=== PATIENT | male | born 1955 | race Caucasian/White ===

== ENCOUNTER 2017-08-25 14:30 | Outpatient (RCR) | payer MEDICARE, SELFPAY ==
[2017-08-16 01:24] VITALS: BP 157/91; PULSE 76; RESP 18; TEMP 36.6; BMI 43.0
[2017-08-25 14:09] VITALS: BP 140/76; PULSE 73; RESP 16; TEMP 37.2; BMI 43.0
--- NOTE | 2017-08-25 15:19 | PCM.WC.PN ---
(1) Pressure ulcer of other site, stage 3 Status: Acute Current Visit: Yes Code(s): L89.893 - Pressure ulcer of other site, stage 3 (2) Left foot pain Status: Acute Current Visit: Yes Code(s): M79.672 - Pain in left foot Type of Wound Date of Service: 08/25/17 Chief Complaint: left foot ulcer History of Wound: Open wound L foot present for 3 years. 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 Has been applying Iodosorb and dry gauze, offloading with AFO with cutout and metatarsal padding. Also using additional padding on foot. Is wearing band-aid on foot today against advice. Cannot come here for the next 2 weeks, wants to return in 3 weeks. Progress of Wound: Improved. - Physical Exam Vital Signs Temp Pulse Resp BP 98.9 F 73 16 140/76 H 08/25/17 14:09 08/25/17 14:09 08/25/17 14:09 08/25/17 14:09 General: Alert, Oriented x3, Cooperative, No apparent distress Skin: Ulcer/ Wound - Plantar L foot 2nd met head with no erythema, no pus, no malodor, no increased warmth, no TTP. No clinical signs of acute bacterial infection noted. Please see nurse's wound assessment. Wound Measurements and Assessment WC - Nurse 1 - General Ulcer Measurement Start: 08/18/17 14:51 Freq: Status: Active Protocol: Activity Type Activity Date Activity User E-Sign Co-Sign Detail Recorded Client Recorded Date Recorded By Document 08/25/17 14:09 [facility] [id number] 08/25/17 14:19 [facility] 08/25/17 14:09 Wound Center Nurse 1 [Ulcer Assessment Protocol: WC.WD.LOC] #1 Left Plantar -Combined with other wound No -Current Size (cm) - Length 0.1 -Current Size (cm) - Width 0.1 -Current Size (cm) - Depth 0.4 -Total Square Cm 0.01 -Date of Last Picture (Recall this 08/25/17 field) -Photo Taken Yes -Epithelialization None Present -Tunneling No -Undermining/Tunneling No -Exudate Amt Small (1-33%) -Exudate Type Serous -Wound Margin Distinct, Outline Attached -Granulation Amt Medium (34-66%) -Granulation Quality [place] -Slough/Fibrin No -Necrosis Amt None Present (0 %) -Structure Exposed N/A -Texture (Talisha-wound Skin Appearance) Callus -Moisture (Talisha-wound Skin Appearance Dry/Scaly ) -Color (Talisha-wound Skin Appearance) Assessed -Temperature (Talisha-wound Skin No Abnormality Appearance) (Pt Warm) -Tenderness on Palpation (Talisha-wound Yes Skin Appearance) -Ulcer Cleansing Rinsed/ Irrigated with Saline -Foul Odor after Cleansing No -Anesthetic Used 5% Lidocaine Gel - Nurse 2 - General Ulcer CM Notes Start: 08/18/17 14:51 Freq: Status: Active Protocol: Activity Type Activity Date Activity User E-Sign Co-Sign Detail Recorded Client Recorded Date Recorded By Document 08/25/17 15:06 MW [id number] 08/25/17 15:08 MW 08/25/17 15:06 Wound Center Nurse 2 [Procedure/Treatment] -Time 15:06 -Correct Patient Yes -Correct Side, Site, Position Yes -Correct Procedure Yes -Procedure Performed Yes -Type of Procedure Debridement -Clinical Debridement Subcutaneous -Post Debridement Size (cm) - Length 0.4 -Post Debridement Size (cm) - Width 0.4 -Post Debridement Size (cm) - Depth 0.2 -Total Square Cm 0.16 -Wound/Ulcer Outcome Not Healed -Ulcer Cleansing Rinsed/ Irrigated with Saline -Foul Odor after Cleansing No -Bioengineered Tissue No -Cetacaine [place] No -Bleeding Controlled with Pressure -Treatment Response Procedure Tolerated Well [See Physician Procedure note for Specifics] Pain Scale: 0-10 Numeric [Pain] -Is Patient Pain Free? Yes Debridement Note Post-Debridement Measurements/Treatment - Nurse 2 - General Ulcer CM Notes Start: 08/18/17 14:51 Freq: Status: Active Protocol: Activity Type Activity Date Activity User E-Sign Co-Sign Detail Recorded Client Recorded Date Recorded By Document 08/25/17 15:06 MW [id number] 08/25/17 15:08 MW 08/25/17 15:06 Wound Center Nurse 2 #1 Left Plantar -Time 15:06 -Correct Patient Yes -Correct Side, Site, Position Yes -Correct Procedure Yes -Procedure Performed Yes -Type of Procedure Debridement -Clinical Debridement Subcutaneous -Post Debridement Size (cm) - Length 0.4 -Post Debridement Size (cm) - Width 0.4 -Post Debridement Size (cm) - Depth 0.2 -Total Square Cm 0.16 -Wound/Ulcer Outcome Not Healed -Ulcer Cleansing Rinsed/ Irrigated with Saline -Foul Odor after Cleansing No -Bioengineered Tissue No -Cetacaine [place] No -Bleeding Controlled with Pressure -Treatment Response Procedure Tolerated Well Pain Scale: 0-10 Numeric Is Patient Pain Free? Yes Wound debrided: L foot Laterality: Left Wound Grade/Stage: Stage 3 pressure injury Type of Debridement: Excisional debridement Anesthesia Used: 4% Lidocaine Solution Depth: Down to and including healthy tissue, in the subcutaneous layer Percentage of wound debrided: 100 Instrument Used: #15 blade Tissue Removed: fibrous slough, surrounding hyperkeratotic tissue Severity: Fat Layer Exposed Amount of bleeding with debridement: Mild Bleeding Controlled with: Pressure, Compression and gauze Patient tolerated procedure well Assessment/Plan Active Problems Pressure ulcer of other site, stage 3 (Acute) Left foot pain (Acute) Assessment: See diagnoses Plan: SQ/excisional debridement L foot ulcer as above. Cont promogran and dry gauze 3x/week. Do not use band-aids. Make sure promogran is packed in to ulcer. Discussed importance of offloading. Padding applied, adjusted AFO/offloading insert. Labs reviewed. ESR/CRP slightly elevated. Prealbumin normal. WBC normal. 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 Screening MAUREEN next week in clinic. Discussed importance of adequate nutrition, especially increased protein intake, to promote healing. Keep L foot dry in the shower, wash separately with dsg changes. Do not walk or stand without offloading L 2nd met head. Monitor for redness, pus, malodor, warmth, inc pain, swelling as well as for N/V/F/C and go to the ED with these. RTC 3 weeks (pt request), call with questions.
--- NOTE | 2017-08-25 15:22 | PN.PCM_ITS ---
(1) Pressure ulcer of other site, stage 3 Status: Acute Current Visit: Yes Code(s): L89.893 - Pressure ulcer of other site, stage 3 (2) Left foot pain Status: Acute Current Visit: Yes Code(s): M79.672 - Pain in left foot Type of Wound Date of Service: 08/25/17 Chief Complaint: left foot ulcer History of Wound: Open wound L foot present for 3 years. 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 Has been applying Iodosorb and dry gauze, offloading with AFO with cutout and metatarsal padding. Also using additional padding on foot. Is wearing band-aid on foot today against advice. Cannot come here for the next 2 weeks, wants to return in 3 weeks. Progress of Wound: Improved. - Physical Exam Vital Signs Temp Pulse Resp BP 98.9 F 73 16 140/76 H 08/25/17 14:09 08/25/17 14:09 08/25/17 14:09 08/25/17 14:09 General: Alert, Oriented x3, Cooperative, No apparent distress Skin: Ulcer/ Wound - Plantar L foot 2nd met head with no erythema, no pus, no malodor, no increased warmth, no TTP. No clinical signs of acute bacterial infection noted. Please see nurse's wound assessment. Wound Measurements and Assessment WC - Nurse 1 - General Ulcer Measurement Start: 08/18/17 14:51 Freq: Status: Active Protocol: Activity Type Activity Date Activity User E-Sign Co-Sign Detail Recorded Client Recorded Date Recorded By Document 08/25/17 14:09 [facility] [id number] 08/25/17 14:19 [facility] 08/25/17 14:09 Wound Center Nurse 1 [Ulcer Assessment Protocol: WC.WD.LOC] #1 Left Plantar -Combined with other wound No -Current Size (cm) - Length 0.1 -Current Size (cm) - Width 0.1 -Current Size (cm) - Depth 0.4 -Total Square Cm 0.01 -Date of Last Picture (Recall this 08/25/17 field) -Photo Taken Yes -Epithelialization None Present -Tunneling No -Undermining/Tunneling No -Exudate Amt Small (1-33%) -Exudate Type Serous -Wound Margin Distinct, Outline Attached -Granulation Amt Medium (34-66%) -Granulation Quality [place] -Slough/Fibrin No -Necrosis Amt None Present (0 %) -Structure Exposed N/A -Texture (Talisha-wound Skin Appearance) Callus -Moisture (Talisha-wound Skin Appearance Dry/Scaly ) -Color (Talisha-wound Skin Appearance) Assessed -Temperature (Talisha-wound Skin No Abnormality Appearance) (Pt Warm) -Tenderness on Palpation (Talisha-wound Yes Skin Appearance) -Ulcer Cleansing Rinsed/ Irrigated with Saline -Foul Odor after Cleansing No -Anesthetic Used 5% Lidocaine Gel - Nurse 2 - General Ulcer CM Notes Start: 08/18/17 14:51 Freq: Status: Active Protocol: Activity Type Activity Date Activity User E-Sign Co-Sign Detail Recorded Client Recorded Date Recorded By Document 08/25/17 15:06 MW [id number] 08/25/17 15:08 MW 08/25/17 15:06 Wound Center Nurse 2 [Procedure/Treatment] -Time 15:06 -Correct Patient Yes -Correct Side, Site, Position Yes -Correct Procedure Yes -Procedure Performed Yes -Type of Procedure Debridement -Clinical Debridement Subcutaneous -Post Debridement Size (cm) - Length 0.4 -Post Debridement Size (cm) - Width 0.4 -Post Debridement Size (cm) - Depth 0.2 -Total Square Cm 0.16 -Wound/Ulcer Outcome Not Healed -Ulcer Cleansing Rinsed/ Irrigated with Saline -Foul Odor after Cleansing No -Bioengineered Tissue No -Cetacaine [place] No -Bleeding Controlled with Pressure -Treatment Response Procedure Tolerated Well [See Physician Procedure note for Specifics] Pain Scale: 0-10 Numeric [Pain] -Is Patient Pain Free? Yes Debridement Note Post-Debridement Measurements/Treatment - Nurse 2 - General Ulcer CM Notes Start: 08/18/17 14:51 Freq: Status: Active Protocol: Activity Type Activity Date Activity User E-Sign Co-Sign Detail Recorded Client Recorded Date Recorded By Document 08/25/17 15:06 MW [id number] 08/25/17 15:08 MW 08/25/17 15:06 Wound Center Nurse 2 #1 Left Plantar -Time 15:06 -Correct Patient Yes -Correct Side, Site, Position Yes -Correct Procedure Yes -Procedure Performed Yes -Type of Procedure Debridement -Clinical Debridement Subcutaneous -Post Debridement Size (cm) - Length 0.4 -Post Debridement Size (cm) - Width 0.4 -Post Debridement Size (cm) - Depth 0.2 -Total Square Cm 0.16 -Wound/Ulcer Outcome Not Healed -Ulcer Cleansing Rinsed/ Irrigated with Saline -Foul Odor after Cleansing No -Bioengineered Tissue No -Cetacaine [place] No -Bleeding Controlled with Pressure -Treatment Response Procedure Tolerated Well Pain Scale: 0-10 Numeric Is Patient Pain Free? Yes Wound debrided: L foot Laterality: Left Wound Grade/Stage: Stage 3 pressure injury Type of Debridement: Excisional debridement Anesthesia Used: 4% Lidocaine Solution Depth: Down to and including healthy tissue, in the subcutaneous layer Percentage of wound debrided: 100 Instrument Used: #15 blade Tissue Removed: fibrous slough, surrounding hyperkeratotic tissue Severity: Fat Layer Exposed Amount of bleeding with debridement: Mild Bleeding Controlled with: Pressure, Compression and gauze Patient tolerated procedure well Assessment/Plan Active Problems Pressure ulcer of other site, stage 3 (Acute) Left foot pain (Acute) Assessment: See diagnoses Plan: SQ/excisional debridement L foot ulcer as above. Cont promogran and dry gauze 3x/week. Do not use band-aids. Make sure promogran is packed in to ulcer. Discussed importance of offloading. Padding applied, adjusted AFO/ offloading insert. Labs reviewed. ESR/CRP slightly elevated. Prealbumin normal. WBC normal. 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 Screening MAUREEN next week in clinic. Discussed importance of adequate nutrition, especially increased protein intake, to promote healing. Keep L foot dry in the shower, wash separately with dsg changes. Do not walk or stand without offloading L 2nd met head. Monitor for redness, pus, malodor, warmth, inc pain, swelling as well as for N/V/F/C and go to the ED with these. RTC 3 weeks (pt request), call with questions.
== END 2017-09-13 23:59 ==
LOC: WC 14:30
PROVIDERS: PCP Internal Medicine; Visit Provider Podiatrist Foot & Ankle Surgery
DX: L89.893 Pressure ulcer of other site, stage 3 (principal); M79.672 Pain in left foot
CPT/HCPCS: 11042

== ENCOUNTER 2017-10-13 14:45 | Outpatient (RCR) | payer MEDICARE, SELFPAY ==
[2017-09-14 01:30] VITALS: BP 140/76; PULSE 73; RESP 16; TEMP 37.2; BMI 43.0
[2017-09-15 14:26] VITALS: BP 122/79; PULSE 75; RESP 18; TEMP 36.8; BMI 43.0
--- NOTE | 2017-09-15 15:49 | PCM.WC.PN ---
(1) Pressure ulcer of other site, stage 3 Status: Acute Current Visit: Yes Code(s): L89.893 - Pressure ulcer of other site, stage 3 (2) Left foot pain Status: Acute Current Visit: Yes Code(s): M79.672 - Pain in left foot Type of Wound Date of Service: 09/15/17 Chief Complaint: left foot ulcer History of Wound: Open wound L foot present for 3 years. 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 Has been applying ramiro and dry gauze 3x/week, offloading with AFO with cutout and metatarsal padding. Also using additional padding on foot. Progress of Wound: Improved. - Physical Exam Vital Signs Temp Pulse Resp BP 98.3 F 75 18 122/79 H 09/15/17 14:26 09/15/17 14:26 09/15/17 14:26 09/15/17 14:26 General: Alert, Oriented x3, Cooperative, No apparent distress Skin: Ulcer/ Wound - Plantar L foot 2nd met head with no erythema, no malodor, no pus, no calor, no TTP. No clinical signs of acute bacterial infection noted. See nurse's wound assessment. Wound Measurements and Assessment WC - Nurse 1 - General Ulcer Measurement Start: 09/15/17 14:25 Freq: Status: Active Protocol: Activity Type Activity Date Activity User E-Sign Co-Sign Detail Recorded Client Recorded Date Recorded By Document 09/15/17 14:26 DL [id number] 09/15/17 14:31 DL 09/15/17 14:26 Wound Center Nurse 1 [Ulcer Assessment Protocol: WC.WD.LOC] #1 Left Plantar -Current Size (cm) - Length 0.2 -Current Size (cm) - Width 0.2 -Current Size (cm) - Depth 0.2 -Total Square Cm 0.04 -Photo Taken No -Exudate Amt None Present (0 %) -Wound Margin Thickened -Granulation Amt Small (1-33%) -Granulation Quality [place] -Necrosis Amt Small (1-33%) -Necrotic Tissue Type Adherent Slough -Structure Exposed N/A -Texture (Talisha-wound Skin Appearance) Callus -Moisture (Talisha-wound Skin Appearance No Abnormality ) -Color (Talisha-wound Skin Appearance) No Abnormality -Temperature (Talisha-wound Skin No Abnormality Appearance) (Pt Warm) -Ulcer Cleansing Rinsed/ Irrigated with Saline -Foul Odor after Cleansing No -Anesthetic Used 4% Lidocaine Solution - Nurse 2 - General Ulcer CM Notes Start: 09/15/17 14:25 Freq: Status: Active Protocol: Activity Type Activity Date Activity User E-Sign Co-Sign Detail Recorded Client Recorded Date Recorded By Document 09/15/17 15:08 MW [id number] 09/15/17 15:14 MW 09/15/17 15:08 Wound Center Nurse 2 [Procedure/Treatment] -Time 15:09 -Correct Patient Yes -Correct Side, Site, Position Yes -Correct Procedure Yes -Procedure Performed Yes -Type of Procedure Debridement -Clinical Debridement Subcutaneous -Post Debridement Size (cm) - Length 0.4 -Post Debridement Size (cm) - Width 0.4 -Post Debridement Size (cm) - Depth 0.1 -Total Square Cm 0.16 -Wound/Ulcer Outcome Not Healed -Ulcer Cleansing Rinsed/ Irrigated with Saline -Foul Odor after Cleansing No -Bioengineered Tissue No -Cetacaine [place] No -Bleeding Controlled with Pressure -Treatment Response Procedure Tolerated Well [See Physician Procedure note for Specifics] Pain Scale: 0-10 Numeric [Pain] -Is Patient Pain Free? Yes Debridement Note Post-Debridement Measurements/Treatment - Nurse 2 - General Ulcer CM Notes Start: 09/15/17 14:25 Freq: Status: Active Protocol: Activity Type Activity Date Activity User E-Sign Co-Sign Detail Recorded Client Recorded Date Recorded By Document 09/15/17 15:08 MW [id number] 09/15/17 15:14 MW 09/15/17 15:08 Wound Center Nurse 2 #1 Left Plantar -Time 15:09 -Correct Patient Yes -Correct Side, Site, Position Yes -Correct Procedure Yes -Procedure Performed Yes -Type of Procedure Debridement -Clinical Debridement Subcutaneous -Post Debridement Size (cm) - Length 0.4 -Post Debridement Size (cm) - Width 0.4 -Post Debridement Size (cm) - Depth 0.1 -Total Square Cm 0.16 -Wound/Ulcer Outcome Not Healed -Ulcer Cleansing Rinsed/ Irrigated with Saline -Foul Odor after Cleansing No -Bioengineered Tissue No -Cetacaine [place] No -Bleeding Controlled with Pressure -Treatment Response Procedure Tolerated Well Pain Scale: 0-10 Numeric Is Patient Pain Free? Yes Wound debrided: L foot Laterality: Left Wound Grade/Stage: Stage 3 pressure injury Type of Debridement: Excisional debridement Anesthesia Used: 4% Lidocaine Solution Depth: Down to and including healthy tissue, in the subcutaneous layer Percentage of wound debrided: 100 Instrument Used: #10 blade Tissue Removed: fibrous slough, surrounding hyperkeratotic tissue Severity: Fat Layer Exposed Amount of bleeding with debridement: Mild Bleeding Controlled with: Pressure, Compression and gauze Patient tolerated procedure well Assessment/Plan Active Problems Pressure ulcer of other site, stage 3 (Acute) Left foot pain (Acute) Assessment: See diagnoses Plan: SQ/excisional debridement L foot ulcer as above. Cont promogran and dry gauze 3x/week. Do not use band-aids. Make sure promogran is packed in to ulcer. Add collagen hydrogel. Discussed importance of offloading again today. Padding applied, adjusted AFO/offloading insert. Labs reviewed. ESR/CRP slightly elevated. Prealbumin normal. WBC normal. Needs Screening MAUREEN next week in clinic. Discussed importance of adequate nutrition, especially increased protein intake, to promote healing. Keep L foot dry in the shower, wash separately with dsg changes. Do not walk or stand without offloading L 2nd met head - did not get done today. Monitor for redness, pus, malodor, warmth, inc pain, swelling as well as for N/V/F/C and go to the ED with these. RTC 1 week, call with questions.
--- NOTE | 2017-09-15 15:52 | PN.PCM_ITS ---
(1) Pressure ulcer of other site, stage 3 Status: Acute Current Visit: Yes Code(s): L89.893 - Pressure ulcer of other site, stage 3 (2) Left foot pain Status: Acute Current Visit: Yes Code(s): M79.672 - Pain in left foot Type of Wound Date of Service: 09/15/17 Chief Complaint: left foot ulcer History of Wound: Open wound L foot present for 3 years. 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 Has been applying ramiro and dry gauze 3x/week, offloading with AFO with cutout and metatarsal padding. Also using additional padding on foot. Progress of Wound: Improved. - Physical Exam Vital Signs Temp Pulse Resp BP 98.3 F 75 18 122/79 H 09/15/17 14:26 09/15/17 14:26 09/15/17 14:26 09/15/17 14:26 General: Alert, Oriented x3, Cooperative, No apparent distress Skin: Ulcer/ Wound - Plantar L foot 2nd met head with no erythema, no malodor, no pus, no calor, no TTP. No clinical signs of acute bacterial infection noted. See nurse's wound assessment. Wound Measurements and Assessment WC - Nurse 1 - General Ulcer Measurement Start: 09/15/17 14:25 Freq: Status: Active Protocol: Activity Type Activity Date Activity User E-Sign Co-Sign Detail Recorded Client Recorded Date Recorded By Document 09/15/17 14:26 DL [id number] 09/15/17 14:31 DL 09/15/17 14:26 Wound Center Nurse 1 [Ulcer Assessment Protocol: WC.WD.LOC] #1 Left Plantar -Current Size (cm) - Length 0.2 -Current Size (cm) - Width 0.2 -Current Size (cm) - Depth 0.2 -Total Square Cm 0.04 -Photo Taken No -Exudate Amt None Present (0 %) -Wound Margin Thickened -Granulation Amt Small (1-33%) -Granulation Quality [place] -Necrosis Amt Small (1-33%) -Necrotic Tissue Type Adherent Slough -Structure Exposed N/A -Texture (Talisha-wound Skin Appearance) Callus -Moisture (Talisha-wound Skin Appearance No Abnormality ) -Color (Talisha-wound Skin Appearance) No Abnormality -Temperature (Talisha-wound Skin No Abnormality Appearance) (Pt Warm) -Ulcer Cleansing Rinsed/ Irrigated with Saline -Foul Odor after Cleansing No -Anesthetic Used 4% Lidocaine Solution - Nurse 2 - General Ulcer CM Notes Start: 09/15/17 14:25 Freq: Status: Active Protocol: Activity Type Activity Date Activity User E-Sign Co-Sign Detail Recorded Client Recorded Date Recorded By Document 09/15/17 15:08 MW [id number] 09/15/17 15:14 MW 09/15/17 15:08 Wound Center Nurse 2 [Procedure/Treatment] -Time 15:09 -Correct Patient Yes -Correct Side, Site, Position Yes -Correct Procedure Yes -Procedure Performed Yes -Type of Procedure Debridement -Clinical Debridement Subcutaneous -Post Debridement Size (cm) - Length 0.4 -Post Debridement Size (cm) - Width 0.4 -Post Debridement Size (cm) - Depth 0.1 -Total Square Cm 0.16 -Wound/Ulcer Outcome Not Healed -Ulcer Cleansing Rinsed/ Irrigated with Saline -Foul Odor after Cleansing No -Bioengineered Tissue No -Cetacaine [place] No -Bleeding Controlled with Pressure -Treatment Response Procedure Tolerated Well [See Physician Procedure note for Specifics] Pain Scale: 0-10 Numeric [Pain] -Is Patient Pain Free? Yes Debridement Note Post-Debridement Measurements/Treatment - Nurse 2 - General Ulcer CM Notes Start: 09/15/17 14:25 Freq: Status: Active Protocol: Activity Type Activity Date Activity User E-Sign Co-Sign Detail Recorded Client Recorded Date Recorded By Document 09/15/17 15:08 MW [id number] 09/15/17 15:14 MW 09/15/17 15:08 Wound Center Nurse 2 #1 Left Plantar -Time 15:09 -Correct Patient Yes -Correct Side, Site, Position Yes -Correct Procedure Yes -Procedure Performed Yes -Type of Procedure Debridement -Clinical Debridement Subcutaneous -Post Debridement Size (cm) - Length 0.4 -Post Debridement Size (cm) - Width 0.4 -Post Debridement Size (cm) - Depth 0.1 -Total Square Cm 0.16 -Wound/Ulcer Outcome Not Healed -Ulcer Cleansing Rinsed/ Irrigated with Saline -Foul Odor after Cleansing No -Bioengineered Tissue No -Cetacaine [place] No -Bleeding Controlled with Pressure -Treatment Response Procedure Tolerated Well Pain Scale: 0-10 Numeric Is Patient Pain Free? Yes Wound debrided: L foot Laterality: Left Wound Grade/Stage: Stage 3 pressure injury Type of Debridement: Excisional debridement Anesthesia Used: 4% Lidocaine Solution Depth: Down to and including healthy tissue, in the subcutaneous layer Percentage of wound debrided: 100 Instrument Used: #10 blade Tissue Removed: fibrous slough, surrounding hyperkeratotic tissue Severity: Fat Layer Exposed Amount of bleeding with debridement: Mild Bleeding Controlled with: Pressure, Compression and gauze Patient tolerated procedure well Assessment/Plan Active Problems Pressure ulcer of other site, stage 3 (Acute) Left foot pain (Acute) Assessment: See diagnoses Plan: SQ/excisional debridement L foot ulcer as above. Cont promogran and dry gauze 3x/week. Do not use band-aids. Make sure promogran is packed in to ulcer. Add collagen hydrogel. Discussed importance of offloading again today. Padding applied, adjusted AFO/offloading insert. Labs reviewed. ESR/CRP slightly elevated. Prealbumin normal. WBC normal. Needs Screening MAUREEN next week in clinic. Discussed importance of adequate nutrition, especially increased protein intake, to promote healing. Keep L foot dry in the shower, wash separately with dsg changes. Do not walk or stand without offloading L 2nd met head - did not get done today. Monitor for redness, pus, malodor, warmth, inc pain, swelling as well as for N/V/F/C and go to the ED with these. RTC 1 week, call with questions.
[2017-09-22 14:39] VITALS: BP 126/84; PULSE 68; RESP 20; TEMP 37.3; BMI 43.0
--- NOTE | 2017-09-22 16:09 | PCM.WC.PN ---
(1) Pressure ulcer of other site, stage 3 Status: Acute Current Visit: Yes Code(s): L89.893 - Pressure ulcer of other site, stage 3 (2) Left foot pain Status: Acute Current Visit: Yes Code(s): M79.672 - Pain in left foot Type of Wound Date of Service: 09/22/17 Chief Complaint: left foot ulcer History of Wound: Open wound L foot present for 3 years. Was seeing another physician practice consultant until recently and he was referred here by his PCP. Has been applying ramiro and dry gauze 3x/week, offloading with AFO with cutout and metatarsal padding. Also using additional padding on foot. Patient admits to standing barefoot in his shower as well as walking barefoot at night without protection. Progress of Wound: Measuring larger. - Physical Exam Vital Signs Temp Pulse Resp BP 99.1 F 68 20 H 126/84 H 09/22/17 14:39 09/22/17 14:39 09/22/17 14:39 09/22/17 14:39 General: Alert, Oriented x3, Cooperative, No apparent distress Skin: Ulcer/ Wound - Plantar L 2nd met head with no erythema, no malodor, no pus, no calor, no TTP. No clinical signs of acute bacterial infection noted. See nurse's wound assessment. Wound Measurements and Assessment WC - Nurse 1 - General Ulcer Measurement Start: 09/15/17 14:25 Freq: Status: Active Protocol: Activity Type Activity Date Activity User E-Sign Co-Sign Detail Recorded Client Recorded Date Recorded By Document 09/22/17 14:39 DL [id number] 09/22/17 14:47 DL 09/22/17 14:39 Wound Center Nurse 1 [Ulcer Assessment Protocol: WC.WD.LOC] #1 Left Plantar -Current Size (cm) - Length 0.3 -Current Size (cm) - Width 0.3 -Current Size (cm) - Depth 0.5 -Total Square Cm 0.09 -Photo Taken No -Maximum Distance #2 (cm) 0.4 -Circular Undermining Yes -Exudate Amt Small (1-33%) -Exudate Type Yellow/Green -Wound Margin Thickened -Granulation Amt Small (1-33%) -Granulation Quality [place] -Necrosis Amt Small (1-33%) -Necrotic Tissue Type Adherent Slough -Structure Exposed N/A -Texture (Talisha-wound Skin Appearance) Callus -Moisture (Talisha-wound Skin Appearance Dry/Scaly ) -Color (Talisha-wound Skin Appearance) No Abnormality -Temperature (Talisha-wound Skin No Abnormality Appearance) (Pt Warm) -Tenderness on Palpation (Talisha-wound No Skin Appearance) -Ulcer Cleansing Rinsed/ Irrigated with Saline -Foul Odor after Cleansing No -Anesthetic Used 4% Lidocaine Solution - Nurse 2 - General Ulcer CM Notes Start: 09/15/17 14:25 Freq: Status: Active Protocol: Activity Type Activity Date Activity User E-Sign Co-Sign Detail Recorded Client Recorded Date Recorded By Document 09/22/17 15:17 MW [id number] 09/22/17 15:22 MW 09/22/17 15:17 Wound Center Nurse 2 [Procedure/Treatment] -Time 15:18 -Correct Patient Yes -Correct Side, Site, Position Yes -Correct Procedure Yes -Procedure Performed Yes -Type of Procedure Debridement -Clinical Debridement Subcutaneous -Post Debridement Size (cm) - Length 0.5 -Post Debridement Size (cm) - Width 0.5 -Post Debridement Size (cm) - Depth 0.3 -Total Square Cm 0.25 -Wound/Ulcer Outcome Not Healed -Ulcer Cleansing Rinsed/ Irrigated with Saline -Foul Odor after Cleansing No -Bioengineered Tissue No -Cetacaine [place] No -Bleeding Controlled with Pressure -Treatment Response Procedure Tolerated Well [See Physician Procedure note for Specifics] Pain Scale: 0-10 Numeric [Pain] -Is Patient Pain Free? Yes Musculoskeletal: - - Limited dorsiflexion L ankle. Debridement Note Post-Debridement Measurements/Treatment - Nurse 2 - General Ulcer CM Notes Start: 09/15/17 14:25 Freq: Status: Active Protocol: Activity Type Activity Date Activity User E-Sign Co-Sign Detail Recorded Client Recorded Date Recorded By Document 09/15/17 15:08 MW [id number] 09/15/17 15:14 MW Document 09/22/17 15:17 MW [id number] 09/22/17 15:22 MW 09/15/17 09/22/17 15:08 15:17 Wound Center Nurse 2 #1 Left Plantar -Time 15:09 15:18 -Correct Patient Yes Yes -Correct Side, Site, Position Yes Yes -Correct Procedure Yes Yes -Procedure Performed Yes Yes -Type of Procedure Debridement Debridement -Clinical Debridement Subcutaneous Subcutaneous -Post Debridement Size (cm) - Length 0.4 0.5 -Post Debridement Size (cm) - Width 0.4 0.5 -Post Debridement Size (cm) - Depth 0.1 0.3 -Total Square Cm 0.16 0.25 -Wound/Ulcer Outcome Not Healed Not Healed -Ulcer Cleansing Rinsed/ Rinsed/ Irrigated with Irrigated with Saline Saline -Foul Odor after Cleansing No No -Bioengineered Tissue No No -Cetacaine [place] No No -Bleeding Controlled with Pressure Pressure -Treatment Response Procedure Procedure Tolerated Well Tolerated Well Pain Scale: 0-10 Numeric Is Patient Pain Free? Yes Yes Wound debrided: L foot plantar 2nd met head Laterality: Left Wound Grade/Stage: Stage 3 pressure injury Type of Debridement: Excisional debridement Anesthesia Used: 4% Lidocaine Solution Depth: Down to and including healthy tissue, in the subcutaneous layer Percentage of wound debrided: 100 Instrument Used: #15 blade Tissue Removed: surrouding hyperkeratotic rim, fibrous slough Severity: Fat Layer Exposed Amount of bleeding with debridement: Mild Bleeding Controlled with: Pressure, Compression and gauze Patient tolerated procedure well Assessment/Plan Active Problems Pressure ulcer of other site, stage 3 (Acute) Left foot pain (Acute) Assessment: See diagnoses Plan: SQ/excisional debridement L foot ulcer as above. Cont promogran and dry gauze 3x/week. Do not use band-aids. Make sure promogran is packed in to ulcer. Cont collagen hydrogel. Discussed importance of offloading once again today. Padding applied. Still needs Screening MAUREEN next week in clinic. Discussed importance of adequate nutrition, especially increased protein intake, to promote healing. Keep L foot dry in the shower, wash separately with dsg changes. Do not walk or stand without offloading L 2nd met head. Advised pt that he should treat his LLE as if he had a fracture, and his left foot should not touch the ground. Rx knee-walker for strict NWB LLE. Pt is to get a shower chair as well in order to remain non-weightbearing to his L foot at all times. Monitor for redness, pus, malodor, warmth, inc pain, swelling as well as for N/V/F/C and go to the ED with these. RTC 1 week, call with questions. Given no improvement, x-rays of L foot ordered to assess for osseous involvement.
--- NOTE | 2017-09-22 16:13 | PN.PCM_ITS ---
(1) Pressure ulcer of other site, stage 3 Status: Acute Current Visit: Yes Code(s): L89.893 - Pressure ulcer of other site, stage 3 (2) Left foot pain Status: Acute Current Visit: Yes Code(s): M79.672 - Pain in left foot Type of Wound Date of Service: 09/22/17 Chief Complaint: left foot ulcer History of Wound: Open wound L foot present for 3 years. 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 Has been applying ramiro and dry gauze 3x/week, offloading with AFO with cutout and metatarsal padding. Also using additional padding on foot. Patient admits to standing barefoot in his shower as well as walking barefoot at night without protection. Progress of Wound: Measuring larger. - Physical Exam Vital Signs Temp Pulse Resp BP 99.1 F 68 20 H 126/84 H 09/22/17 14:39 09/22/17 14:39 09/22/17 14:39 09/22/17 14:39 General: Alert, Oriented x3, Cooperative, No apparent distress Skin: Ulcer/ Wound - Plantar L 2nd met head with no erythema, no malodor, no pus , no calor, no TTP. No clinical signs of acute bacterial infection noted. See nurse's wound assessment. Wound Measurements and Assessment WC - Nurse 1 - General Ulcer Measurement Start: 09/15/17 14:25 Freq: Status: Active Protocol: Activity Type Activity Date Activity User E-Sign Co-Sign Detail Recorded Client Recorded Date Recorded By Document 09/22/17 14:39 DL [id number] 09/22/17 14:47 DL 09/22/17 14:39 Wound Center Nurse 1 [Ulcer Assessment Protocol: WC.WD.LOC] #1 Left Plantar -Current Size (cm) - Length 0.3 -Current Size (cm) - Width 0.3 -Current Size (cm) - Depth 0.5 -Total Square Cm 0.09 -Photo Taken No -Maximum Distance #2 (cm) 0.4 -Circular Undermining Yes -Exudate Amt Small (1-33%) -Exudate Type Yellow/Green -Wound Margin Thickened -Granulation Amt Small (1-33%) -Granulation Quality [place] -Necrosis Amt Small (1-33%) -Necrotic Tissue Type Adherent Slough -Structure Exposed N/A -Texture (Talisha-wound Skin Appearance) Callus -Moisture (Talisha-wound Skin Appearance Dry/Scaly ) -Color (Talisha-wound Skin Appearance) No Abnormality -Temperature (Talisha-wound Skin No Abnormality Appearance) (Pt Warm) -Tenderness on Palpation (Talisha-wound No Skin Appearance) -Ulcer Cleansing Rinsed/ Irrigated with Saline -Foul Odor after Cleansing No -Anesthetic Used 4% Lidocaine Solution - Nurse 2 - General Ulcer CM Notes Start: 09/15/17 14:25 Freq: Status: Active Protocol: Activity Type Activity Date Activity User E-Sign Co-Sign Detail Recorded Client Recorded Date Recorded By Document 09/22/17 15:17 MW [id number] 09/22/17 15:22 MW 09/22/17 15:17 Wound Center Nurse 2 [Procedure/Treatment] -Time 15:18 -Correct Patient Yes -Correct Side, Site, Position Yes -Correct Procedure Yes -Procedure Performed Yes -Type of Procedure Debridement -Clinical Debridement Subcutaneous -Post Debridement Size (cm) - Length 0.5 -Post Debridement Size (cm) - Width 0.5 -Post Debridement Size (cm) - Depth 0.3 -Total Square Cm 0.25 -Wound/Ulcer Outcome Not Healed -Ulcer Cleansing Rinsed/ Irrigated with Saline -Foul Odor after Cleansing No -Bioengineered Tissue No -Cetacaine [place] No -Bleeding Controlled with Pressure -Treatment Response Procedure Tolerated Well [See Physician Procedure note for Specifics] Pain Scale: 0-10 Numeric [Pain] -Is Patient Pain Free? Yes Musculoskeletal: - - Limited dorsiflexion L ankle. Debridement Note Post-Debridement Measurements/Treatment - Nurse 2 - General Ulcer CM Notes Start: 09/15/17 14:25 Freq: Status: Active Protocol: Activity Type Activity Date Activity User E-Sign Co-Sign Detail Recorded Client Recorded Date Recorded By Document 09/15/17 15:08 MW [id number] 09/15/17 15:14 MW Document 09/22/17 15:17 MW [id number] 09/22/17 15:22 MW 09/15/17 09/22/17 15:08 15:17 Wound Center Nurse 2 #1 Left Plantar -Time 15:09 15:18 -Correct Patient Yes Yes -Correct Side, Site, Position Yes Yes -Correct Procedure Yes Yes -Procedure Performed Yes Yes -Type of Procedure Debridement Debridement -Clinical Debridement Subcutaneous Subcutaneous -Post Debridement Size (cm) - Length 0.4 0.5 -Post Debridement Size (cm) - Width 0.4 0.5 -Post Debridement Size (cm) - Depth 0.1 0.3 -Total Square Cm 0.16 0.25 -Wound/Ulcer Outcome Not Healed Not Healed -Ulcer Cleansing Rinsed/ Rinsed/ Irrigated with Irrigated with Saline Saline -Foul Odor after Cleansing No No -Bioengineered Tissue No No -Cetacaine [place] No No -Bleeding Controlled with Pressure Pressure -Treatment Response Procedure Procedure Tolerated Well Tolerated Well Pain Scale: 0-10 Numeric Is Patient Pain Free? Yes Yes Wound debrided: L foot plantar 2nd met head Laterality: Left Wound Grade/Stage: Stage 3 pressure injury Type of Debridement: Excisional debridement Anesthesia Used: 4% Lidocaine Solution Depth: Down to and including healthy tissue, in the subcutaneous layer Percentage of wound debrided: 100 Instrument Used: #15 blade Tissue Removed: surrouding hyperkeratotic rim, fibrous slough Severity: Fat Layer Exposed Amount of bleeding with debridement: Mild Bleeding Controlled with: Pressure, Compression and gauze Patient tolerated procedure well Assessment/Plan Active Problems Pressure ulcer of other site, stage 3 (Acute) Left foot pain (Acute) Assessment: See diagnoses Plan: SQ/excisional debridement L foot ulcer as above. Cont promogran and dry gauze 3x/week. Do not use band-aids. Make sure promogran is packed in to ulcer. Cont collagen hydrogel. Discussed importance of offloading once again today. Padding applied. Still needs Screening MAUREEN next week in clinic. Discussed importance of adequate nutrition, especially increased protein intake , to promote healing. Keep L foot dry in the shower, wash separately with dsg changes. Do not walk or stand without offloading L 2nd met head. Advised pt that he should treat his LLE as if he had a fracture, and his left foot should not touch the ground. Rx knee-walker for strict NWB LLE. Pt is to get a shower chair as well in order to remain non-weightbearing to his L foot at all times. Monitor for redness, pus, malodor, warmth, inc pain, swelling as well as for N/V/F/C and go to the ED with these. RTC 1 week, call with questions. Given no improvement, x-rays of L foot ordered to assess for osseous involvement.
[2017-09-29 15:14] VITALS: BP 126/75; PULSE 81; RESP 18; TEMP 36.6; BMI 43.0
--- NOTE | 2017-09-29 15:47 | PCM.WC.PN ---
(1) Pressure ulcer of other site, stage 3 Status: Acute Current Visit: Yes Code(s): L89.893 - Pressure ulcer of other site, stage 3 (2) Left foot pain Status: Acute Current Visit: Yes Code(s): M79.672 - Pain in left foot Type of Wound Date of Service: 09/29/17 Chief Complaint: left foot ulcer History of Wound: Open wound L foot present for 3 years. 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 Has been applying ramiro and dry gauze 3x/week, offloading with AFO with cutout and metatarsal padding. Also using additional padding on foot. Patient admits to standing barefoot in his shower as well as walking barefoot at night without protection. 09/29--Using ramiro and dry gauze 3x/week. States he started walking on the side of his foot if he is not wearing his AFO and boot. States he is still trying to get the knee walker but has kept all pressure off of the ulcer this week. Ulceration is not draining and appears to have actually healed with complete offloading. Progress of Wound: HEALED. - Physical Exam Vital Signs Temp Pulse Resp BP 97.8 F 81 18 126/75 H 09/29/17 15:14 09/29/17 15:14 09/29/17 15:14 09/29/17 15:14 General: Alert, Oriented x3, Cooperative, No apparent distress Skin: Ulcer/ Wound - L plantar forefoot with no erythema, no calor, no purulent drainage, no malodor, no TTP of healed ulcer. No clinical signs of acute bacterial infection noted. See wound/edema assessment below. Ulcer covered with epithelial tissue and has healed. Wound Measurements and Assessment - Nurse 1 - General Ulcer Measurement Start: 09/15/17 14:25 Freq: Status: Active Protocol: Activity Type Activity Date Activity User E-Sign Co-Sign Detail Recorded Client Recorded Date Recorded By Document 09/29/17 15:14 [id number] 09/29/17 15:16 09/29/17 15:14 Wound Center Nurse 1 [Ulcer Assessment Protocol: HEATHER.WD.LOC] #1 Left Plantar -Combined with other wound No -Current Size (cm) - Length 1.0 -Current Size (cm) - Width 0.5 -Current Size (cm) - Depth 0.1 -Total Square Cm 0.50 -Date of Last Picture (Recall this 09/29/17 field) -Photo Taken Yes -Epithelialization None Present -Tunneling No -Undermining/Tunneling No -Circular Undermining No -Classification - Thickness Full Thickness without Exposed Support Structure -Exudate Amt Small (1-33%) -Exudate Type Serosanguineous -Wound Margin Fibrotic Scar, Thickened Scar -Granulation Amt None Present (0 %) -Granulation Quality N/A -Slough/Fibrin Yes -Necrosis Amt Large (67-100%) -Necrotic Tissue Type Adherent Slough -Structure Exposed Fascia Fat Layer Exposed -Texture (Talisha-wound Skin Appearance) Callus Scarring -Moisture (Talisha-wound Skin Appearance No Abnormality ) -Color (Talisha-wound Skin Appearance) Erythema -Temperature (Talisha-wound Skin No Abnormality Appearance) (Pt Warm) -Tenderness on Palpation (Talisha-wound No Skin Appearance) -Ulcer Cleansing Rinsed/ Irrigated with Saline -Foul Odor after Cleansing No -Anesthetic Used 4% Lidocaine Solution [Edema Assessment] -Lower Limb Edema Present No -Left Calf (cm) 22.5 -Left Ankle (cm) 39.0 WC - Nurse 2 - General Ulcer CM Notes Start: 09/15/17 14:25 Freq: Status: Active Protocol: Activity Type Activity Date Activity User E-Sign Co-Sign Detail Recorded Client Recorded Date Recorded By Document 09/29/17 15:39 MW [id number] 09/29/17 15:41 MW 09/29/17 15:39 Wound Center Nurse 2 [Procedure/Treatment] #1 Left Plantar -Time 15:40 -Correct Patient Yes -Correct Side, Site, Position Yes -Correct Procedure Yes -Procedure Performed No -Post Debridement Size (cm) - Length 0 -Post Debridement Size (cm) - Width 0 -Post Debridement Size (cm) - Depth 0 -Total Square Cm 0 -Wound/Ulcer Outcome Healed- Epithelialized -Ulcer Cleansing Rinsed/ Irrigated with Saline -Foul Odor after Cleansing No -Bioengineered Tissue No -Cetacaine [place] No -Bleeding Controlled with NA -Treatment Response Procedure Tolerated Well [See Physician Procedure note for Specifics] Pain Scale: 0-10 Numeric [Pain] -Is Patient Pain Free? Yes Debridement Note Post-Debridement Measurements/Treatment WC - Nurse 2 - General Ulcer CM Notes Start: 09/15/17 14:25 Freq: Status: Active Protocol: Activity Type Activity Date Activity User E-Sign Co-Sign Detail Recorded Client Recorded Date Recorded By Document 09/15/17 15:08 MW [id number] 09/15/17 15:14 MW Document 09/22/17 15:17 MW [id number] 09/22/17 15:22 MW Document 09/29/17 15:39 MW [id number] 09/29/17 15:41 MW 09/15/17 09/22/17 09/29/17 15:08 15:17 15:39 Wound Center Nurse 2 #1 Left Plantar -Time 15: 15:18 15:40 -Correct Patient Yes Yes Yes -Correct Side, Site, Position Yes Yes Yes -Correct Procedure Yes Yes Yes -Procedure Performed Yes Yes No -Type of Procedure Debridement Debridement -Clinical Debridement Subcutaneous Subcutaneous -Post Debridement Size (cm) - Length 0.4 0.5 0 -Post Debridement Size (cm) - Width 0.4 0.5 0 -Post Debridement Size (cm) - Depth 0.1 0.3 0 -Total Square Cm 0.16 0.25 0 -Wound/Ulcer Outcome Not Healed Not Healed Healed- Epithelialized -Ulcer Cleansing Rinsed/ Rinsed/ Rinsed/ Irrigated with Irrigated with Irrigated with Saline Saline Saline -Foul Odor after Cleansing No No No -Bioengineered Tissue No No No -Cetacaine [place] No No No -Bleeding Controlled with Pressure Pressure NA -Treatment Response Procedure Procedure Procedure Tolerated Well Tolerated Well Tolerated Well Pain Scale: 0-10 Numeric Is Patient Pain Free? Yes Yes Yes No debridement was completed today Assessment/Plan Active Problems Pressure ulcer of other site, stage 3 (Acute) Left foot pain (Acute) Assessment: See diagnoses Plan: Exam. A total of 25 minutes was spent [id number] with the patient and over half of that time was spent on counseling, coordination of care, and discussing his diagnoses. Discussed importance of offloading once again today. Padding applied. Pt also not applying any pressure to the ulceration site which has led to healing of his ulcer. Still needs Screening MAUREEN next week in clinic--being done today. Discussed importance of adequate nutrition, especially increased protein intake, to promote healing. Keep L foot dry in the shower, wash separately with dsg changes. Do not walk or stand without offloading L 2nd met head. Advised pt that he should treat his LLE as if he had a fracture, and his left foot should not touch the ground. Rx knee-walker for strict NWB LLE. Pt is to get a shower chair as well in order to remain non-weightbearing to his L foot at all times. Monitor for redness, pus, malodor, warmth, inc pain, swelling as well as for N/V/F/C and go to the ED with these. RTC 2 weeks, call with questions. X-rays negative for osteomyelitis. No longer has any open wounds, but advised pt that the area is fragile and prone to re-ulceration so he needs to protect the area well. Apply vasoline BID-TID.
--- NOTE | 2017-09-29 15:53 | PN.PCM_ITS ---
(1) Pressure ulcer of other site, stage 3 Status: Acute Current Visit: Yes Code(s): L89.893 - Pressure ulcer of other site, stage 3 (2) Left foot pain Status: Acute Current Visit: Yes Code(s): M79.672 - Pain in left foot Type of Wound Date of Service: 09/29/17 Chief Complaint: left foot ulcer History of Wound: Open wound L foot present for 3 years. 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 Has been applying ramiro and dry gauze 3x/week, offloading with AFO with cutout and metatarsal padding. Also using additional padding on foot. Patient admits to standing barefoot in his shower as well as walking barefoot at night without protection. 09/29--Using ramiro and dry gauze 3x/week. States he started walking on the side of his foot if he is not wearing his AFO and boot. States he is still trying to get the knee walker but has kept all pressure off of the ulcer this week. Ulceration is not draining and appears to have actually healed with complete offloading. Progress of Wound: HEALED. - Physical Exam Vital Signs Temp Pulse Resp BP 97.8 F 81 18 126/75 H 09/29/17 15:14 09/29/17 15:14 09/29/17 15:14 09/29/17 15:14 General: Alert, Oriented x3, Cooperative, No apparent distress Skin: Ulcer/ Wound - L plantar forefoot with no erythema, no calor, no purulent drainage, no malodor, no TTP of healed ulcer. No clinical signs of acute bacterial infection noted. See wound/edema assessment below. Ulcer covered with epithelial tissue and has healed. Wound Measurements and Assessment - Nurse 1 - General Ulcer Measurement Start: 09/15/17 14:25 Freq: Status: Active Protocol: Activity Type Activity Date Activity User E-Sign Co-Sign Detail Recorded Client Recorded Date Recorded By Document 09/29/17 15:14 [id number] 09/29/17 15:16 09/29/17 15:14 Wound Center Nurse 1 [Ulcer Assessment Protocol: HEATHER.WD.LOC] #1 Left Plantar -Combined with other wound No -Current Size (cm) - Length 1.0 -Current Size (cm) - Width 0.5 -Current Size (cm) - Depth 0.1 -Total Square Cm 0.50 -Date of Last Picture (Recall this 09/29/17 field) -Photo Taken Yes -Epithelialization None Present -Tunneling No -Undermining/Tunneling No -Circular Undermining No -Classification - Thickness Full Thickness without Exposed Support Structure -Exudate Amt Small (1-33%) -Exudate Type Serosanguineous -Wound Margin Fibrotic Scar, Thickened Scar -Granulation Amt None Present (0 %) -Granulation Quality N/A -Slough/Fibrin Yes -Necrosis Amt Large (67-100%) -Necrotic Tissue Type Adherent Slough -Structure Exposed Fascia Fat Layer Exposed -Texture (Talisha-wound Skin Appearance) Callus Scarring -Moisture (Talisha-wound Skin Appearance No Abnormality ) -Color (Talisha-wound Skin Appearance) Erythema -Temperature (Talisha-wound Skin No Abnormality Appearance) (Pt Warm) -Tenderness on Palpation (Talisha-wound No Skin Appearance) -Ulcer Cleansing Rinsed/ Irrigated with Saline -Foul Odor after Cleansing No -Anesthetic Used 4% Lidocaine Solution [Edema Assessment] -Lower Limb Edema Present No -Left Calf (cm) 22.5 -Left Ankle (cm) 39.0 WC - Nurse 2 - General Ulcer CM Notes Start: 09/15/17 14:25 Freq: Status: Active Protocol: Activity Type Activity Date Activity User E-Sign Co-Sign Detail Recorded Client Recorded Date Recorded By Document 09/29/17 15:39 MW [id number] 09/29/17 15:41 MW 09/29/17 15:39 Wound Center Nurse 2 [Procedure/Treatment] #1 Left Plantar -Time 15:40 -Correct Patient Yes -Correct Side, Site, Position Yes -Correct Procedure Yes -Procedure Performed No -Post Debridement Size (cm) - Length 0 -Post Debridement Size (cm) - Width 0 -Post Debridement Size (cm) - Depth 0 -Total Square Cm 0 -Wound/Ulcer Outcome Healed- Epithelialized -Ulcer Cleansing Rinsed/ Irrigated with Saline -Foul Odor after Cleansing No -Bioengineered Tissue No -Cetacaine [place] No -Bleeding Controlled with NA -Treatment Response Procedure Tolerated Well [See Physician Procedure note for Specifics] Pain Scale: 0-10 Numeric [Pain] -Is Patient Pain Free? Yes Debridement Note Post-Debridement Measurements/Treatment WC - Nurse 2 - General Ulcer CM Notes Start: 09/15/17 14:25 Freq: Status: Active Protocol: Activity Type Activity Date Activity User E-Sign Co-Sign Detail Recorded Client Recorded Date Recorded By Document 09/15/17 15:08 MW [id number] 09/15/17 15:14 MW Document 09/22/17 15:17 MW [id number] 09/22/17 15:22 MW Document 09/29/17 15:39 MW [id number] 09/29/17 15:41 MW 09/15/17 09/22/17 09/29/17 15:08 15:17 15:39 Wound Center Nurse 2 #1 Left Plantar -Time 15: 15:18 15:40 -Correct Patient Yes Yes Yes -Correct Side, Site, Position Yes Yes Yes -Correct Procedure Yes Yes Yes -Procedure Performed Yes Yes No -Type of Procedure Debridement Debridement -Clinical Debridement Subcutaneous Subcutaneous -Post Debridement Size (cm) - Length 0.4 0.5 0 -Post Debridement Size (cm) - Width 0.4 0.5 0 -Post Debridement Size (cm) - Depth 0.1 0.3 0 -Total Square Cm 0.16 0.25 0 -Wound/Ulcer Outcome Not Healed Not Healed Healed- Epithelialized -Ulcer Cleansing Rinsed/ Rinsed/ Rinsed/ Irrigated with Irrigated with Irrigated with Saline Saline Saline -Foul Odor after Cleansing No No No -Bioengineered Tissue No No No -Cetacaine [place] No No No -Bleeding Controlled with Pressure Pressure NA -Treatment Response Procedure Procedure Procedure Tolerated Well Tolerated Well Tolerated Well Pain Scale: 0-10 Numeric Is Patient Pain Free? Yes Yes Yes No debridement was completed today Assessment/Plan Active Problems Pressure ulcer of other site, stage 3 (Acute) Left foot pain (Acute) Assessment: See diagnoses Plan: Exam. A total of 25 minutes was spent [id number] with the patient and over half of that time was spent on counseling, coordination of care, and discussing his diagnoses. Discussed importance of offloading once again today. Padding applied. Pt also not applying any pressure to the ulceration site which has led to healing of his ulcer. Still needs Screening MAUREEN next week in clinic--being done today. Discussed importance of adequate nutrition, especially increased protein intake, to promote healing. Keep L foot dry in the shower, wash separately with dsg changes. Do not walk or stand without offloading L 2nd met head. Advised pt that he should treat his LLE as if he had a fracture, and his left foot should not touch the ground. Rx knee-walker for strict NWB LLE. Pt is to get a shower chair as well in order to remain non- weightbearing to his L foot at all times. Monitor for redness, pus, malodor, warmth, inc pain, swelling as well as for N/V/F/C and go to the ED with these. RTC 2 weeks, call with questions. X-rays negative for osteomyelitis. No longer has any open wounds, but advised pt that the area is fragile and prone to re-ulceration so he needs to protect the area well. Apply vasoline BID-TID.
[2017-10-13 14:35] VITALS: BP 114/88; PULSE 81; RESP 19; TEMP 37; BMI 43.0
--- NOTE | 2017-10-13 16:14 | PCM.WC.PN ---
(1) Pressure ulcer of other site, stage 3 Status: Acute Current Visit: Yes Code(s): L89.893 - Pressure ulcer of other site, stage 3 (2) Left foot pain Status: Acute Current Visit: Yes Code(s): M79.672 - Pain in left foot Type of Wound Date of Service: 10/13/17 Chief Complaint: left foot ulcer History of Wound: Open wound L foot present for 3 years. 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 Has been applying ramiro and dry gauze 3x/week, offloading with AFO with cutout and metatarsal padding. Also using additional padding on foot. Patient admits to standing barefoot in his shower as well as walking barefoot at night without protection. 09/29--Using ramiro and dry gauze 3x/week. States he started walking on the side of his foot if he is not wearing his AFO and boot. States he is still trying to get the knee walker but has kept all pressure off of the ulcer this week. Ulceration is not draining and appears to have actually healed with complete offloading. 10/13--Ulcer has re-opened, notes a small amount of clear drainage. Has been applying collagen hydrogel daily rather than protective ointment. Denies pus, malodor, warmth, pain, swelling. Denies N/V/F/C. Progress of Wound: Ulcer has re-opened, but superficial. Pt admits to NOT using aquaphor or vaseline BID-TID as instructed, but has been applying hydrogel instead. - Physical Exam Vital Signs Temp Pulse Resp BP 98.6 F 81 19 H 114/88 H 10/13/17 14:35 10/13/17 14:35 10/13/17 14:35 10/13/17 14:35 General: Alert, Oriented x3, Cooperative, No apparent distress Skin: Ulcer/ Wound - Plantar L foot 2nd met head with no erythema, no pus, no malodor, no increased warmth, no TTP of wound or ema-wound area. No clinical signs of acute bacterial infection noted. See nurse's wound assessment. Wound Measurements and Assessment WC - Nurse 1 - General Ulcer Measurement Start: 09/15/17 14:25 Freq: Status: Active Protocol: Activity Type Activity Date Activity User E-Sign Co-Sign Detail Recorded Client Recorded Date Recorded By Document 10/13/17 14:35 TN [id number] 10/13/17 14:42 TN 10/13/17 14:35 Wound Center Nurse 1 [Edema Assessment] -Lower Limb Edema Present No WC - Nurse 2 - General Ulcer CM Notes Start: 09/15/17 14:25 Freq: Status: Active Protocol: Activity Type Activity Date Activity User E-Sign Co-Sign Detail Recorded Client Recorded Date Recorded By Document 10/13/17 14:55 MW [id number] 10/13/17 15:05 MW 10/13/17 14:55 Wound Center Nurse 2 [Procedure/Treatment] #1 Left Plantar -Time 14:56 -Correct Patient Yes -Correct Side, Site, Position Yes -Correct Procedure Yes -Procedure Performed No -Post Debridement Size (cm) - Length 0.1 -Post Debridement Size (cm) - Width 0.1 -Post Debridement Size (cm) - Depth 0.1 -Total Square Cm 0.01 -Wound/Ulcer Outcome Not Healed -Ulcer Cleansing Rinsed/ Irrigated with Saline -Foul Odor after Cleansing No -Bioengineered Tissue No -Cetacaine [place] No -Bleeding Controlled with NA -Treatment Response Procedure Tolerated Well [See Physician Procedure note for Specifics] Pain Scale: 0-10 Numeric [Pain] -Is Patient Pain Free? Yes Debridement Note Post-Debridement Measurements/Treatment WC - Nurse 2 - General Ulcer CM Notes Start: 09/15/17 14:25 Freq: Status: Active Protocol: Activity Type Activity Date Activity User E-Sign Co-Sign Detail Recorded Client Recorded Date Recorded By Document 09/15/17 15:08 MW [id number] 09/15/17 15:14 MW Document 09/22/17 15:17 MW [id number] 09/22/17 15:22 MW Document 09/29/17 15:39 MW [id number] 09/29/17 15:41 MW Document 10/13/17 14:55 MW [id number] 10/13/17 15:05 MW 09/15/17 09/22/17 09/29/17 15:08 15:17 15:39 Wound Center Nurse 2 #1 Left Plantar -Time 15:09 15:18 15:40 -Correct Patient Yes Yes Yes -Correct Side, Site, Position Yes Yes Yes -Correct Procedure Yes Yes Yes -Procedure Performed Yes Yes No -Type of Procedure Debridement Debridement -Clinical Debridement Subcutaneous Subcutaneous -Post Debridement Size (cm) - Length 0.4 0.5 0 -Post Debridement Size (cm) - Width 0.4 0.5 0 -Post Debridement Size (cm) - Depth 0.1 0.3 0 -Total Square Cm 0.16 0.25 0 -Wound/Ulcer Outcome Not Healed Not Healed Healed- Epithelialized -Ulcer Cleansing Rinsed/ Rinsed/ Rinsed/ Irrigated with Irrigated with Irrigated with Saline Saline Saline -Foul Odor after Cleansing No No No -Bioengineered Tissue No No No -Cetacaine [place] No No No -Bleeding Controlled with Pressure Pressure NA -Treatment Response Procedure Procedure Procedure Tolerated Well Tolerated Well Tolerated Well Pain Scale: 0-10 Numeric Is Patient Pain Free? Yes Yes Yes 10/13/17 14:55 Wound Center Nurse 2 #1 Left Plantar -Time 14:56 -Correct Patient Yes -Correct Side, Site, Position Yes -Correct Procedure Yes -Procedure Performed No -Type of Procedure -Clinical Debridement -Post Debridement Size (cm) - Length 0.1 -Post Debridement Size (cm) - Width 0.1 -Post Debridement Size (cm) - Depth 0.1 -Total Square Cm 0.01 -Wound/Ulcer Outcome Not Healed -Ulcer Cleansing Rinsed/ Irrigated with Saline -Foul Odor after Cleansing No -Bioengineered Tissue No -Cetacaine [place] No -Bleeding Controlled with NA -Treatment Response Procedure Tolerated Well Pain Scale: 0-10 Numeric Is Patient Pain Free? Yes No debridement was completed today Assessment/Plan Active Problems Pressure ulcer of other site, stage 3 (Acute) Left foot pain (Acute) Assessment: See diagnoses Plan: Exam. A total of 15 minutes was spent [id number] with the patient and over half of that time was spent on counseling, coordination of care, and discussing his diagnoses. Discussed importance of offloading once again today. Padding applied. Continue collagen hydrogel, increase to BID. Pt admits to not applying protective ointment against advice. Once heals again, needs to apply protective ointment BID-TID. Discussed importance of adequate nutrition, especially increased protein intake, to promote healing. Keep L foot dry in the shower, wash separately with dsg changes. Do not walk or stand without offloading L 2nd met head. Advised pt that he should treat his LLE as if he had a fracture, and his left foot should not touch the ground. Rx knee-walker for strict NWB LLE previously. Pt is to get a shower chair as well in order to remain non-weightbearing to his L foot at all times. Monitor for redness, pus, malodor, warmth, inc pain, swelling as well as for N/V/F/C and go to the ED with these. RTC 1 week, call with questions.
--- NOTE | 2017-10-13 16:18 | PN.PCM_ITS ---
(1) Pressure ulcer of other site, stage 3 Status: Acute Current Visit: Yes Code(s): L89.893 - Pressure ulcer of other site, stage 3 (2) Left foot pain Status: Acute Current Visit: Yes Code(s): M79.672 - Pain in left foot Type of Wound Date of Service: 10/13/17 Chief Complaint: left foot ulcer History of Wound: Open wound L foot present for 3 years. 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 Has been applying ramiro and dry gauze 3x/week, offloading with AFO with cutout and metatarsal padding. Also using additional padding on foot. Patient admits to standing barefoot in his shower as well as walking barefoot at night without protection. 09/29--Using ramiro and dry gauze 3x/week. States he started walking on the side of his foot if he is not wearing his AFO and boot. States he is still trying to get the knee walker but has kept all pressure off of the ulcer this week. Ulceration is not draining and appears to have actually healed with complete offloading. 10/13--Ulcer has re-opened, notes a small amount of clear drainage. Has been applying collagen hydrogel daily rather than protective ointment. Denies pus, malodor, warmth, pain, swelling. Denies N/V/F/ C. Progress of Wound: Ulcer has re-opened, but superficial. Pt admits to NOT using aquaphor or vaseline BID-TID as instructed, but has been applying hydrogel instead. - Physical Exam Vital Signs Temp Pulse Resp BP 98.6 F 81 19 H 114/88 H 10/13/17 14:35 10/13/17 14:35 10/13/17 14:35 10/13/17 14:35 General: Alert, Oriented x3, Cooperative, No apparent distress Skin: Ulcer/ Wound - Plantar L foot 2nd met head with no erythema, no pus, no malodor, no increased warmth, no TTP of wound or ema-wound area. No clinical signs of acute bacterial infection noted. See nurse's wound assessment. Wound Measurements and Assessment WC - Nurse 1 - General Ulcer Measurement Start: 09/15/17 14:25 Freq: Status: Active Protocol: Activity Type Activity Date Activity User E-Sign Co-Sign Detail Recorded Client Recorded Date Recorded By Document 10/13/17 14:35 TN [id number] 10/13/17 14:42 TN 10/13/17 14:35 Wound Center Nurse 1 [Edema Assessment] -Lower Limb Edema Present No WC - Nurse 2 - General Ulcer CM Notes Start: 09/15/17 14:25 Freq: Status: Active Protocol: Activity Type Activity Date Activity User E-Sign Co-Sign Detail Recorded Client Recorded Date Recorded By Document 10/13/17 14:55 MW [id number] 10/13/17 15:05 MW 10/13/17 14:55 Wound Center Nurse 2 [Procedure/Treatment] #1 Left Plantar -Time 14:56 -Correct Patient Yes -Correct Side, Site, Position Yes -Correct Procedure Yes -Procedure Performed No -Post Debridement Size (cm) - Length 0.1 -Post Debridement Size (cm) - Width 0.1 -Post Debridement Size (cm) - Depth 0.1 -Total Square Cm 0.01 -Wound/Ulcer Outcome Not Healed -Ulcer Cleansing Rinsed/ Irrigated with Saline -Foul Odor after Cleansing No -Bioengineered Tissue No -Cetacaine [place] No -Bleeding Controlled with NA -Treatment Response Procedure Tolerated Well [See Physician Procedure note for Specifics] Pain Scale: 0-10 Numeric [Pain] -Is Patient Pain Free? Yes Debridement Note Post-Debridement Measurements/Treatment WC - Nurse 2 - General Ulcer CM Notes Start: 09/15/17 14:25 Freq: Status: Active Protocol: Activity Type Activity Date Activity User E-Sign Co-Sign Detail Recorded Client Recorded Date Recorded By Document 09/15/17 15:08 MW [id number] 09/15/17 15:14 MW Document 09/22/17 15:17 MW [id number] 09/22/17 15:22 MW Document 09/29/17 15:39 MW [id number] 09/29/17 15:41 MW Document 10/13/17 14:55 MW [id number] 10/13/17 15:05 MW 09/15/17 09/22/17 09/29/17 15:08 15:17 15:39 Wound Center Nurse 2 #1 Left Plantar -Time 15:09 15:18 15:40 -Correct Patient Yes Yes Yes -Correct Side, Site, Position Yes Yes Yes -Correct Procedure Yes Yes Yes -Procedure Performed Yes Yes No -Type of Procedure Debridement Debridement -Clinical Debridement Subcutaneous Subcutaneous -Post Debridement Size (cm) - Length 0.4 0.5 0 -Post Debridement Size (cm) - Width 0.4 0.5 0 -Post Debridement Size (cm) - Depth 0.1 0.3 0 -Total Square Cm 0.16 0.25 0 -Wound/Ulcer Outcome Not Healed Not Healed Healed- Epithelialized -Ulcer Cleansing Rinsed/ Rinsed/ Rinsed/ Irrigated with Irrigated with Irrigated with Saline Saline Saline -Foul Odor after Cleansing No No No -Bioengineered Tissue No No No -Cetacaine [place] No No No -Bleeding Controlled with Pressure Pressure NA -Treatment Response Procedure Procedure Procedure Tolerated Well Tolerated Well Tolerated Well Pain Scale: 0-10 Numeric Is Patient Pain Free? Yes Yes Yes 10/13/17 14:55 Wound Center Nurse 2 #1 Left Plantar -Time 14:56 -Correct Patient Yes -Correct Side, Site, Position Yes -Correct Procedure Yes -Procedure Performed No -Type of Procedure -Clinical Debridement -Post Debridement Size (cm) - Length 0.1 -Post Debridement Size (cm) - Width 0.1 -Post Debridement Size (cm) - Depth 0.1 -Total Square Cm 0.01 -Wound/Ulcer Outcome Not Healed -Ulcer Cleansing Rinsed/ Irrigated with Saline -Foul Odor after Cleansing No -Bioengineered Tissue No -Cetacaine [place] No -Bleeding Controlled with NA -Treatment Response Procedure Tolerated Well Pain Scale: 0-10 Numeric Is Patient Pain Free? Yes No debridement was completed today Assessment/Plan Active Problems Pressure ulcer of other site, stage 3 (Acute) Left foot pain (Acute) Assessment: See diagnoses Plan: Exam. A total of 15 minutes was spent [id number] with the patient and over half of that time was spent on counseling, coordination of care, and discussing his diagnoses. Discussed importance of offloading once again today. Padding applied. Continue collagen hydrogel, increase to BID. Pt admits to not applying protective ointment against advice. Once heals again, needs to apply protective ointment BID-TID. Discussed importance of adequate nutrition, especially increased protein intake, to promote healing. Keep L foot dry in the shower, wash separately with dsg changes. Do not walk or stand without offloading L 2nd met head. Advised pt that he should treat his LLE as if he had a fracture, and his left foot should not touch the ground. Rx knee-walker for strict NWB LLE previously. Pt is to get a shower chair as well in order to remain non-weightbearing to his L foot at all times. Monitor for redness, pus, malodor, warmth, inc pain, swelling as well as for N/V/F/C and go to the ED with these. RTC 1 week, call with questions.
== END 2017-10-14 23:59 ==
LOC: WC 14:45
PROVIDERS: PCP Internal Medicine; Visit Provider Podiatrist Foot & Ankle Surgery
DX: L89.893 Pressure ulcer of other site, stage 3 (principal); M79.672 Pain in left foot
CPT/HCPCS: 11042; 99212; 99213; G0463

== ENCOUNTER 2017-10-27 14:16 | Outpatient (RCR) | payer MEDICARE, SELFPAY ==
[2017-10-13 14:35] VITALS: BP 114/88
[2017-10-15 00:51] VITALS: PULSE 81; RESP 19; TEMP 37
[2017-10-27 14:47] VITALS: BP 128/82; PULSE 84; RESP 20; TEMP 36.7; BMI 43.0
--- NOTE | 2017-10-27 15:12 | PCM.WC.PN ---
(1) Pressure ulcer of other site, stage 3 Status: Resolved Current Visit: Yes Code(s): L89.893 - Pressure ulcer of other site, stage 3 Type of Wound Date of Service: 10/27/17 Chief Complaint: left foot ulcer History of Wound: Open wound L foot present for 3 years. 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 Has been applying ramiro and dry gauze 3x/week, offloading with AFO with cutout and metatarsal padding. Also using additional padding on foot. Patient admits to standing barefoot in his shower as well as walking barefoot at night without protection. 09/29--Using ramiro and dry gauze 3x/week. States he started walking on the side of his foot if he is not wearing his AFO and boot. States he is still trying to get the knee walker but has kept all pressure off of the ulcer this week. Ulceration is not draining and appears to have actually healed with complete offloading. 10/13--Ulcer has re-opened, notes a small amount of clear drainage. Has been applying collagen hydrogel daily rather than protective ointment. Denies pus, malodor, warmth, pain, swelling. Denies N/V/F/C. 10/27--Has been applying collagen hydrogel BID-TID. Notes no drainage. Ulcer has healed with the use of collagen hydrogel and proper offloading. Progress of Wound: Once again healed. Has been applying hydrogel BID-TID. Further offloading with padding and adjusted AFO. Pt is going to [facility] to have his AFO adjusted to properly offload his 2nd met head. - Physical Exam Vital Signs Temp Pulse Resp BP 98.0 F 84 20 H 128/82 H 10/27/17 14:47 10/27/17 14:47 10/27/17 14:47 10/27/17 14:47 General: Alert, Oriented x3, Cooperative, No apparent distress Skin: No breakdown, Ulcer/ Wound - Previous ulceration plantar L forefoot 2nd met head is covered with epithelial tissue and has healed. Wound Measurements and Assessment WC - Nurse 1 - General Ulcer Measurement Start: 10/27/17 14:47 Freq: Status: Active Protocol: Activity Type Activity Date Activity User E-Sign Co-Sign Detail Recorded Client Recorded Date Recorded By Document 10/27/17 14:47 [id number] 10/27/17 14:58 10/27/17 14:47 Wound Center Nurse 1 [Ulcer Assessment Protocol: WC.WD.LOC] #1 Left Plantar -Combined with other wound No -Current Size (cm) - Length 1.2 -Current Size (cm) - Width 0.3 -Current Size (cm) - Depth 0 -Total Square Cm 0.36 -Date of Last Picture (Recall this 10/27/17 field) -Photo Taken Yes -Epithelialization Medium 34-66% -Tunneling No -Undermining/Tunneling No -Circular Undermining No -Classification - Thickness Full Thickness without Exposed Support Structure -Exudate Amt None Present (0 %) -Wound Margin Distinct, Outline Attached -Granulation Amt Small (1-33%) -Granulation Quality Red -Slough/Fibrin Yes -Necrosis Amt None Present (0 %) -Necrotic Tissue Type Adherent Slough -Structure Exposed N/A -Texture (Talisha-wound Skin Appearance) Callus -Moisture (Talisha-wound Skin Appearance No Abnormality ) -Color (Talisha-wound Skin Appearance) No Abnormality -Temperature (Talisha-wound Skin No Abnormality Appearance) (Pt Warm) -Tenderness on Palpation (Talisha-wound No Skin Appearance) -Ulcer Cleansing Rinsed/ Irrigated with Saline -Foul Odor after Cleansing No -Anesthetic Used 4% Lidocaine Solution [Edema Assessment] -Lower Limb Edema Present No - Nurse 2 - General Ulcer CM Notes Start: 10/27/17 14:47 Freq: Status: Active Protocol: Activity Type Activity Date Activity User E-Sign Co-Sign Detail Recorded Client Recorded Date Recorded By Document 10/27/17 15:04 MW [id number] 10/27/17 15:06 MW 10/27/17 15:04 Wound Center Nurse 2 [Procedure/Treatment] #1 Left Plantar -Time 15:04 -Correct Patient Yes -Correct Side, Site, Position Yes -Correct Procedure Yes -Procedure Performed No -Post Debridement Size (cm) - Length 0 -Post Debridement Size (cm) - Width 0 -Post Debridement Size (cm) - Depth 0 -Total Square Cm 0 -Wound/Ulcer Outcome Healed- Epithelialized -Ulcer Cleansing Rinsed/ Irrigated with Saline -Foul Odor after Cleansing No -Bioengineered Tissue No -Bleeding Controlled with NA -Treatment Response Procedure Tolerated Well [See Physician Procedure note for Specifics] Pain Scale: 0-10 Numeric [Pain] -Is Patient Pain Free? Yes Debridement Note Post-Debridement Measurements/Treatment WC - Nurse 2 - General Ulcer CM Notes Start: 10/27/17 14:47 Freq: Status: Active Protocol: Activity Type Activity Date Activity User E-Sign Co-Sign Detail Recorded Client Recorded Date Recorded By Document 10/27/17 15:04 MW [id number] 10/27/17 15:06 MW 10/27/17 15:04 Wound Center Nurse 2 #1 Left Plantar -Time 15:04 -Correct Patient Yes -Correct Side, Site, Position Yes -Correct Procedure Yes -Procedure Performed No -Post Debridement Size (cm) - Length 0 -Post Debridement Size (cm) - Width 0 -Post Debridement Size (cm) - Depth 0 -Total Square Cm 0 -Wound/Ulcer Outcome Healed- Epithelialized -Ulcer Cleansing Rinsed/ Irrigated with Saline -Foul Odor after Cleansing No -Bioengineered Tissue No -Bleeding Controlled with NA -Treatment Response Procedure Tolerated Well Pain Scale: 0-10 Numeric Is Patient Pain Free? Yes No debridement was completed today Assessment/Plan Assessment: See diagnoses Plan: Exam. A total of 15 minutes was spent [id number] with the patient and over half of that time was spent on counseling, coordination of care, and discussing his diagnoses. Discussed importance of offloading once again today. Padding applied. Stop collagen hydrogel. Apply protective ointment such as Vaseline or Aquaphor BID-TID. Do not walk or stand without offloading L 2nd met head. Needs to go back to [facility] to have AFO adjusted to properly offload his L 2nd met head. Continue padding until AFO adjusted. Monitor for recurrence of the ulceration. No longer has any open wounds on the lower extremities, return here prn. Call with questions regarding his healed ulceration.
--- NOTE | 2017-10-27 15:17 | PN.PCM_ITS ---
(1) Pressure ulcer of other site, stage 3 Status: Resolved Current Visit: Yes Code(s): L89.893 - Pressure ulcer of other site, stage 3 Type of Wound Date of Service: 10/27/17 Chief Complaint: left foot ulcer History of Wound: Open wound L foot present for 3 years. 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 Has been applying ramiro and dry gauze 3x/week, offloading with AFO with cutout and metatarsal padding. Also using additional padding on foot. Patient admits to standing barefoot in his shower as well as walking barefoot at night without protection. 09/29--Using ramiro and dry gauze 3x/week. States he started walking on the side of his foot if he is not wearing his AFO and boot. States he is still trying to get the knee walker but has kept all pressure off of the ulcer this week. Ulceration is not draining and appears to have actually healed with complete offloading. 10/13--Ulcer has re-opened, notes a small amount of clear drainage. Has been applying collagen hydrogel daily rather than protective ointment. Denies pus, malodor, warmth, pain, swelling. Denies N/V/F/ C. 10/27--Has been applying collagen hydrogel BID-TID. Notes no drainage. Ulcer has healed with the use of collagen hydrogel and proper offloading. Progress of Wound: Once again healed. Has been applying hydrogel BID-TID. Further offloading with padding and adjusted AFO. Pt is going to [facility] to have his AFO adjusted to properly offload his 2nd met head. - Physical Exam Vital Signs Temp Pulse Resp BP 98.0 F 84 20 H 128/82 H 10/27/17 14:47 10/27/17 14:47 10/27/17 14:47 10/27/17 14:47 General: Alert, Oriented x3, Cooperative, No apparent distress Skin: No breakdown, Ulcer/ Wound - Previous ulceration plantar L forefoot 2nd met head is covered with epithelial tissue and has healed. Wound Measurements and Assessment WC - Nurse 1 - General Ulcer Measurement Start: 10/27/17 14:47 Freq: Status: Active Protocol: Activity Type Activity Date Activity User E-Sign Co-Sign Detail Recorded Client Recorded Date Recorded By Document 10/27/17 14:47 [id number] 10/27/17 14:58 10/27/17 14:47 Wound Center Nurse 1 [Ulcer Assessment Protocol: WC.WD.LOC] #1 Left Plantar -Combined with other wound No -Current Size (cm) - Length 1.2 -Current Size (cm) - Width 0.3 -Current Size (cm) - Depth 0 -Total Square Cm 0.36 -Date of Last Picture (Recall this 10/27/17 field) -Photo Taken Yes -Epithelialization Medium 34-66% -Tunneling No -Undermining/Tunneling No -Circular Undermining No -Classification - Thickness Full Thickness without Exposed Support Structure -Exudate Amt None Present (0 %) -Wound Margin Distinct, Outline Attached -Granulation Amt Small (1-33%) -Granulation Quality Red -Slough/Fibrin Yes -Necrosis Amt None Present (0 %) -Necrotic Tissue Type Adherent Slough -Structure Exposed N/A -Texture (Talisha-wound Skin Appearance) Callus -Moisture (Talisha-wound Skin Appearance No Abnormality ) -Color (Talisha-wound Skin Appearance) No Abnormality -Temperature (Talisha-wound Skin No Abnormality Appearance) (Pt Warm) -Tenderness on Palpation (Talisha-wound No Skin Appearance) -Ulcer Cleansing Rinsed/ Irrigated with Saline -Foul Odor after Cleansing No -Anesthetic Used 4% Lidocaine Solution [Edema Assessment] -Lower Limb Edema Present No - Nurse 2 - General Ulcer CM Notes Start: 10/27/17 14:47 Freq: Status: Active Protocol: Activity Type Activity Date Activity User E-Sign Co-Sign Detail Recorded Client Recorded Date Recorded By Document 10/27/17 15:04 MW [id number] 10/27/17 15:06 MW 10/27/17 15:04 Wound Center Nurse 2 [Procedure/Treatment] #1 Left Plantar -Time 15:04 -Correct Patient Yes -Correct Side, Site, Position Yes -Correct Procedure Yes -Procedure Performed No -Post Debridement Size (cm) - Length 0 -Post Debridement Size (cm) - Width 0 -Post Debridement Size (cm) - Depth 0 -Total Square Cm 0 -Wound/Ulcer Outcome Healed- Epithelialized -Ulcer Cleansing Rinsed/ Irrigated with Saline -Foul Odor after Cleansing No -Bioengineered Tissue No -Bleeding Controlled with NA -Treatment Response Procedure Tolerated Well [See Physician Procedure note for Specifics] Pain Scale: 0-10 Numeric [Pain] -Is Patient Pain Free? Yes Debridement Note Post-Debridement Measurements/Treatment WC - Nurse 2 - General Ulcer CM Notes Start: 10/27/17 14:47 Freq: Status: Active Protocol: Activity Type Activity Date Activity User E-Sign Co-Sign Detail Recorded Client Recorded Date Recorded By Document 10/27/17 15:04 MW [id number] 10/27/17 15:06 MW 10/27/17 15:04 Wound Center Nurse 2 #1 Left Plantar -Time 15:04 -Correct Patient Yes -Correct Side, Site, Position Yes -Correct Procedure Yes -Procedure Performed No -Post Debridement Size (cm) - Length 0 -Post Debridement Size (cm) - Width 0 -Post Debridement Size (cm) - Depth 0 -Total Square Cm 0 -Wound/Ulcer Outcome Healed- Epithelialized -Ulcer Cleansing Rinsed/ Irrigated with Saline -Foul Odor after Cleansing No -Bioengineered Tissue No -Bleeding Controlled with NA -Treatment Response Procedure Tolerated Well Pain Scale: 0-10 Numeric Is Patient Pain Free? Yes No debridement was completed today Assessment/Plan Assessment: See diagnoses Plan: Exam. A total of 15 minutes was spent [id number] with the patient and over half of that time was spent on counseling, coordination of care, and discussing his diagnoses. Discussed importance of offloading once again today. Padding applied. Stop collagen hydrogel. Apply protective ointment such as Vaseline or Aquaphor BID-TID. Do not walk or stand without offloading L 2nd met head. Needs to go back to [facility] to have AFO adjusted to properly offload his L 2nd met head. Continue padding until AFO adjusted. Monitor for recurrence of the ulceration. No longer has any open wounds on the lower extremities, return here prn. Call with questions regarding his healed ulceration.
== END 2017-11-11 23:59 ==
LOC: WC 14:16
PROVIDERS: Family Provider Internal Medicine; PCP Internal Medicine; Visit Provider Podiatrist Foot & Ankle Surgery
DX: Z09 Encounter for follow-up examination after completed treatment for conditions other than malignant neoplasm (principal)
CPT/HCPCS: 99212; G0463

== ENCOUNTER 2018-04-30 09:36 | Outpatient (RCR) | payer MEDICARE, SELFPAY ==
[2018-04-30 11:06] VITALS: BP 115/71; PULSE 82; RESP 18; TEMP 37; BMI 39.9
--- NOTE | 2018-04-30 11:51 | PCM.WC.HP ---
(1) Pressure ulcer of toe, stage 2 Status: Acute Current Visit: Yes Code(s): L89.892 - Pressure ulcer of other site, stage 2 (2) Neuropathy of left lower extremity Status: Acute Current Visit: Yes Code(s): G57.92 - Unspecified mononeuropathy of left lower limb History of Present Illness Date of Service: 04/30/18 Chief Complaint: Follow-up on ready to left medial great toe and right anterior second toe History of Wound: Follow-up Past Medical History Surgical History: - - Hx L ankle/heel surgery 2008 Allergies/Adverse Reactions: Allergies No Known Allergies Allergy (Verified 08/11/17 14:10) Home Medications: Ambulatory Orders Medication Instructions Recorded Adalimumab [Humira] 10 mg SQ 08/11/17 Allopurinol 100 mg PO 08/11/17 Aspirin [Aspirin, Baby] 81 mg PO DAILY@0800 08/11/17 Budesonide/Formoterol 160/4.5 2 puff INHALATION BID 08/11/17 [Symbicort 160/4.5 Mcg Inhaler (SP)] Citalopram [Celexa] 40 mg PO DAILY 08/11/17 Docusate Sodium [Colace] 100 mg PO DAILY 08/11/17 Gabapentin [Neurontin] 600 mg PO TID 08/11/17 Modafinil [Provigil] 100 mg PO DAILY 08/11/17 Naproxen [Naprosyn] 500 mg PO BID PRN PRN 08/11/17 Tamsulosin HCl [Flomax] 0.4 mg PO 08/11/17 Tizanidine HCl 4 mg PO PRN PRN 08/11/17 Fluticasone/Salmeterol [Advair 1 each IH DAILY PRN PRN 04/30/18 250-50 Diskus] Smoking Status: Never smoker - Physical Exam Vital Signs Temp Pulse Resp BP 98.6 F 82 18 115/71 04/30/18 11:06 04/30/18 11:06 04/30/18 11:06 04/30/18 11:06 Wound Measurements and Assessment WC - Nurse 1 - General Ulcer Measurement Start: 04/30/18 10:39 Freq: Status: Active Protocol: Activity Type Activity Date Activity User E-Sign Co-Sign Detail Recorded Client Recorded Date Recorded By Document 04/30/18 11:06 [id number] 04/30/18 11:25 04/30/18 11:06 Wound Center Nurse 1 [Ulcer Assessment] #3 LEFT MEDIAL GREAT TOE -Combined with other wound No -Current Size (cm) - Length 1.0 -Current Size (cm) - Width 0.7 -Current Size (cm) - Depth 0.1 -Total Square Cm 0.70 -Date of Last Picture (Recall this 04/30/18 field) -Photo Taken Yes -Epithelialization None Present -Tunneling No -Undermining/Tunneling No -Circular Undermining No -Classification - Thickness Full Thickness without Exposed Support Structure -Exudate Amt Small (1-33%) -Exudate Type Serosanguineous -Wound Margin Distinct, Outline Attached -Granulation Amt Medium (34-66%) -Granulation Quality Red -Slough/Fibrin Yes -Necrosis Amt Small (1-33%) -Necrotic Tissue Type Adherent Slough -Structure Exposed Fascia Fat Layer Exposed -Texture (Talisha-wound Skin Appearance) Callus Friable Scarring -Moisture (Talisha-wound Skin Appearance No Abnormality ) Assessed -Color (Talisha-wound Skin Appearance) Assessed Erythema -Temperature (Talisha-wound Skin No Abnormality Appearance) (Pt Warm) -Tenderness on Palpation (Talisha-wound Yes Skin Appearance) -Ulcer Cleansing Rinsed/ Irrigated with Saline -Foul Odor after Cleansing No -Anesthetic Used 5% Lidocaine Gel #2 RIGHT 2ND TOE -Combined with other wound No -Current Size (cm) - Length 1.0 -Current Size (cm) - Width 1.2 -Current Size (cm) - Depth 0.1 -Total Square Cm 1.20 -Date of Last Picture (Recall this 04/30/18 field) -Photo Taken Yes -Epithelialization None Present -Tunneling No -Undermining/Tunneling No -Circular Undermining No -Classification - Thickness Full Thickness without Exposed Support Structure -Exudate Amt Small (1-33%) -Exudate Type Serosanguineous -Wound Margin Distinct, Outline Attached -Granulation Amt Large (67-100%) -Granulation Quality Red -Slough/Fibrin Yes -Necrosis Amt Small (1-33%) -Necrotic Tissue Type Adherent Slough -Structure Exposed Fascia Fat Layer Exposed -Texture (Talisha-wound Skin Appearance) Assessed Friable Scarring -Moisture (Talisha-wound Skin Appearance Assessed ) -Color (Talisha-wound Skin Appearance) Erythema -Temperature (Talisha-wound Skin No Abnormality Appearance) (Pt Warm) -Tenderness on Palpation (Talisha-wound Yes Skin Appearance) -Ulcer Cleansing Rinsed/ Irrigated with Saline -Foul Odor after Cleansing No -Anesthetic Used 4% Lidocaine Solution [Edema Assessment] -Lower Limb Edema Present Yes -Right Calf (cm) 41.0 -Right Ankle (cm) 26.0 -Left Calf (cm) 39.0 -Left Ankle (cm) 22.0 HEATHER - Nurse 2 - General Ulcer CM Notes Start: 04/30/18 10:39 Freq: Status: Active Protocol: Activity Type Activity Date Activity User E-Sign Co-Sign Detail Recorded Client Recorded Date Recorded By Document 04/30/18 11:41 [id number] 04/30/18 11:42 04/30/18 11:41 Wound Center Nurse 2 [Procedure/Treatment] #3 LEFT MEDIAL GREAT TOE -Time 11:42 -Correct Patient Yes -Correct Side, Site, Position Yes -Correct Procedure Yes -Procedure Performed Yes -Type of Procedure Debridement -Clinical Debridement Subcutaneous -Post Debridement Size (cm) - Length 1.0 -Post Debridement Size (cm) - Width 0.8 -Post Debridement Size (cm) - Depth 0.2 -Total Square Cm 0.80 -Wound/Ulcer Outcome Not Healed -Ulcer Cleansing Rinsed/ Irrigated with Saline -Foul Odor after Cleansing No -Bioengineered Tissue No -Bleeding Controlled with Pressure -Treatment Response Procedure Tolerated Well #2 RIGHT 2ND TOE -Time 11:42 -Correct Patient Yes -Correct Side, Site, Position Yes -Correct Procedure Yes -Procedure Performed Yes -Type of Procedure Debridement -Clinical Debridement Subcutaneous -Post Debridement Size (cm) - Length 1.0 -Post Debridement Size (cm) - Width 1.0 -Post Debridement Size (cm) - Depth 0.2 -Total Square Cm 1.00 -Wound/Ulcer Outcome Not Healed -Ulcer Cleansing Rinsed/ Irrigated with Saline -Foul Odor after Cleansing No -Bioengineered Tissue No -Bleeding Controlled with NA -Treatment Response Procedure Tolerated Well [See Physician Procedure note for Specifics] Pain Scale: 0-10 Numeric [Pain] -Is Patient Pain Free? Yes Debridement Note Post-Debridement Measurements/Treatment HEATHER - Nurse 2 - General Ulcer CM Notes Start: 04/30/18 10:39 Freq: Status: Active Protocol: Activity Type Activity Date Activity User E-Sign Co-Sign Detail Recorded Client Recorded Date Recorded By Document 04/30/18 11:41 [id number] 04/30/18 11:42 04/30/18 11:41 Wound Center Nurse 2 #3 LEFT MEDIAL GREAT TOE -Time 11:42 -Correct Patient Yes -Correct Side, Site, Position Yes -Correct Procedure Yes -Procedure Performed Yes -Type of Procedure Debridement -Clinical Debridement Subcutaneous -Post Debridement Size (cm) - Length 1.0 -Post Debridement Size (cm) - Width 0.8 -Post Debridement Size (cm) - Depth 0.2 -Total Square Cm 0.80 -Wound/Ulcer Outcome Not Healed -Ulcer Cleansing Rinsed/ Irrigated with Saline -Foul Odor after Cleansing No -Bioengineered Tissue No -Bleeding Controlled with Pressure -Treatment Response Procedure Tolerated Well #2 RIGHT 2ND TOE -Time 11:42 -Correct Patient Yes -Correct Side, Site, Position Yes -Correct Procedure Yes -Procedure Performed Yes -Type of Procedure Debridement -Clinical Debridement Subcutaneous -Post Debridement Size (cm) - Length 1.0 -Post Debridement Size (cm) - Width 1.0 -Post Debridement Size (cm) - Depth 0.2 -Total Square Cm 1.00 -Wound/Ulcer Outcome Not Healed -Ulcer Cleansing Rinsed/ Irrigated with Saline -Foul Odor after Cleansing No -Bioengineered Tissue No -Bleeding Controlled with NA -Treatment Response Procedure Tolerated Well Pain Scale: 0-10 Numeric Is Patient Pain Free? Yes Assessment/Plan Active Problems Pressure ulcer of toe, stage 2 (Acute) Neuropathy of left lower extremity (Acute) Assessment: See diagnoses Plan: Exam. A total of 15 minutes was spent [id number] with the patient and over half of that time was spent on counseling, coordination of care, and discussing his diagnoses. Discussed importance of offloading once again today. Padding applied. Stop collagen hydrogel. Apply protective ointment such as Vaseline or Aquaphor BID-TID. Do not walk or stand without offloading L 2nd met head. Needs to go back to [facility] to have AFO adjusted to properly offload his L 2nd met head. Continue padding until AFO adjusted. Monitor for recurrence of the ulceration. No longer has any open wounds on the lower extremities, return here prn. Call with questions regarding his healed ulceration.
--- NOTE | 2018-04-30 12:42 | PCM.WC.HP ---
(1) Pressure ulcer of toe, stage 2 Status: Acute Current Visit: Yes Code(s): L89.892 - Pressure ulcer of other site, stage 2 (2) Neuropathy of left lower extremity Status: Acute Current Visit: Yes Code(s): G57.92 - Unspecified mononeuropathy of left lower limb History of Present Illness Date of Service: 04/30/18 Chief Complaint: Follow-up on pressure ulcers 2 left medial great toe and right second anterior toe History of Wound: 63-year-old white 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 This has been going on for approximately 3 months he thought it would get better the second toe is completely encompassed with erythema not warm to touch. 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 Patient also has a lot of autoimmune disorders and is on probably medications for that. Past Medical History Past Medical History: Stage II ulcers to right second toe and left lateral great toe Surgical History: - - Hx L ankle/heel surgery 2008 Allergies/Adverse Reactions: Allergies No Known Allergies Allergy (Verified 08/11/17 14:10) Home Medications: Ambulatory Orders Medication Instructions Recorded Adalimumab [Humira] 10 mg SQ 08/11/17 Allopurinol 100 mg PO 08/11/17 Aspirin [Aspirin, Baby] 81 mg PO DAILY@0800 08/11/17 Budesonide/Formoterol 160/4.5 2 puff INHALATION BID 08/11/17 [Symbicort 160/4.5 Mcg Inhaler (SP)] Citalopram [Celexa] 40 mg PO DAILY 08/11/17 Docusate Sodium [Colace] 100 mg PO DAILY 08/11/17 Gabapentin [Neurontin] 600 mg PO TID 08/11/17 Modafinil [Provigil] 100 mg PO DAILY 08/11/17 Naproxen [Naprosyn] 500 mg PO BID PRN PRN 08/11/17 Tamsulosin HCl [Flomax] 0.4 mg PO 08/11/17 Tizanidine HCl 4 mg PO PRN PRN 08/11/17 Fluticasone/Salmeterol [Advair 1 each IH DAILY PRN PRN 04/30/18 250-50 Diskus] Lives: Spouse/ Significant Other Smoking Status: Never smoker Review of Systems Constitutional: Denies: Chills, Fever Eyes: Denies: Blurred vision, Drainage, Pain HEENT: Denies: Difficulty Hearing, Difficulty Swallowing, Sore Throat, Visual Changes Cardiovascular: Denies: Chest Pain, Palpitations, Syncope Respiratory: Denies: Cough, Shortness of Breath Gastrointestinal: Denies: Abdominal Pain, Nausea, Vomiting Genitourinary: Denies: Dysuria, Frequency Musculoskeletal: Denies: Joint Pain, Muscle pain Skin: Denies: Jaundice, Rash Neurological: Denies: Balance problems, Change in Speech, Difficulty swallowing, Focal weakness Psychiatric: Denies: Anxiety, Depression Endocrine: Denies: Change in Body Habitus Hematologic/ Lymphatic: Denies: Adenopathy - Physical Exam Vital Signs Temp Pulse Resp BP 98.6 F 82 18 115/71 04/30/18 11:06 04/30/18 11:06 04/30/18 11:06 04/30/18 11:06 General: Oriented x3, Cooperative, Well developed HEENT: Atraumatic, PERRLA Oral: Moist Mucosa Neck: Supple, No JVD Lungs: Clear to auscultation, Normal air movement Cardiovascular: Regular rate, Regular Rhythm Abdomen: Bowel Sounds Present, Soft, Non Tender, No Hepato-splenomegaly Extremities: No clubbing, No edema, - - Pressure ulcers to the left medial great toe and the right second anterior toe Wound Measurements and Assessment WC - Nurse 1 - General Ulcer Measurement Start: 04/30/18 10:39 Freq: Status: Active Protocol: Activity Type Activity Date Activity User E-Sign Co-Sign Detail Recorded Client Recorded Date Recorded By Document 04/30/18 11:06 [id number] 04/30/18 11:25 04/30/18 11:06 Wound Center Nurse 1 [Ulcer Assessment] #3 LEFT MEDIAL GREAT TOE -Combined with other wound No -Current Size (cm) - Length 1.0 -Current Size (cm) - Width 0.7 -Current Size (cm) - Depth 0.1 -Total Square Cm 0.70 -Date of Last Picture (Recall this 04/30/18 field) -Photo Taken Yes -Epithelialization None Present -Tunneling No -Undermining/Tunneling No -Circular Undermining No -Classification - Thickness Full Thickness without Exposed Support Structure -Exudate Amt Small (1-33%) -Exudate Type Serosanguineous -Wound Margin Distinct, Outline Attached -Granulation Amt Medium (34-66%) -Granulation Quality Red -Slough/Fibrin Yes -Necrosis Amt Small (1-33%) -Necrotic Tissue Type Adherent Slough -Structure Exposed Fascia Fat Layer Exposed -Texture (Talisha-wound Skin Appearance) Callus Friable Scarring -Moisture (Talisha-wound Skin Appearance No Abnormality ) Assessed -Color (Talisha-wound Skin Appearance) Assessed Erythema -Temperature (Talisha-wound Skin No Abnormality Appearance) (Pt Warm) -Tenderness on Palpation (Talisha-wound Yes Skin Appearance) -Ulcer Cleansing Rinsed/ Irrigated with Saline -Foul Odor after Cleansing No -Anesthetic Used 5% Lidocaine Gel #2 RIGHT 2ND TOE -Combined with other wound No -Current Size (cm) - Length 1.0 -Current Size (cm) - Width 1.2 -Current Size (cm) - Depth 0.1 -Total Square Cm 1.20 -Date of Last Picture (Recall this 04/30/18 field) -Photo Taken Yes -Epithelialization None Present -Tunneling No -Undermining/Tunneling No -Circular Undermining No -Classification - Thickness Full Thickness without Exposed Support Structure -Exudate Amt Small (1-33%) -Exudate Type Serosanguineous -Wound Margin Distinct, Outline Attached -Granulation Amt Large (67-100%) -Granulation Quality Red -Slough/Fibrin Yes -Necrosis Amt Small (1-33%) -Necrotic Tissue Type Adherent Slough -Structure Exposed Fascia Fat Layer Exposed -Texture (Talisha-wound Skin Appearance) Assessed Friable Scarring -Moisture (Talisha-wound Skin Appearance Assessed ) -Color (Talisha-wound Skin Appearance) Erythema -Temperature (Talisha-wound Skin No Abnormality Appearance) (Pt Warm) -Tenderness on Palpation (Talisha-wound Yes Skin Appearance) -Ulcer Cleansing Rinsed/ Irrigated with Saline -Foul Odor after Cleansing No -Anesthetic Used 4% Lidocaine Solution [Edema Assessment] -Lower Limb Edema Present Yes -Right Calf (cm) 41.0 -Right Ankle (cm) 26.0 -Left Calf (cm) 39.0 -Left Ankle (cm) 22.0 WC - Nurse 2 - General Ulcer CM Notes Start: 04/30/18 10:39 Freq: Status: Active Protocol: Activity Type Activity Date Activity User E-Sign Co-Sign Detail Recorded Client Recorded Date Recorded By Document 04/30/18 11:41 [id number] 04/30/18 11:42 04/30/18 11:41 Wound Center Nurse 2 [Procedure/Treatment] #3 LEFT MEDIAL GREAT TOE -Time 11:42 -Correct Patient Yes -Correct Side, Site, Position Yes -Correct Procedure Yes -Procedure Performed Yes -Type of Procedure Debridement -Clinical Debridement Subcutaneous -Post Debridement Size (cm) - Length 1.0 -Post Debridement Size (cm) - Width 0.8 -Post Debridement Size (cm) - Depth 0.2 -Total Square Cm 0.80 -Wound/Ulcer Outcome Not Healed -Ulcer Cleansing Rinsed/ Irrigated with Saline -Foul Odor after Cleansing No -Bioengineered Tissue No -Bleeding Controlled with Pressure -Treatment Response Procedure Tolerated Well #2 RIGHT 2ND TOE -Time 11:42 -Correct Patient Yes -Correct Side, Site, Position Yes -Correct Procedure Yes -Procedure Performed Yes -Type of Procedure Debridement -Clinical Debridement Subcutaneous -Post Debridement Size (cm) - Length 1.0 -Post Debridement Size (cm) - Width 1.0 -Post Debridement Size (cm) - Depth 0.2 -Total Square Cm 1.00 -Wound/Ulcer Outcome Not Healed -Ulcer Cleansing Rinsed/ Irrigated with Saline -Foul Odor after Cleansing No -Bioengineered Tissue No -Bleeding Controlled with NA -Treatment Response Procedure Tolerated Well [See Physician Procedure note for Specifics] Pain Scale: 0-10 Numeric [Pain] -Is Patient Pain Free? Yes Musculoskeletal: No Tenderness to Palpation of Joints or Extremities Lymphatic: No Cervical, Supraclavicular, or Inguinal Adenopathy Neurological: Cranial nerves II-XII grossly intact, Neuro grossly intact Psych/Mental Status: Normal Affect, Appropriate, Alert and oriented to time, place, person, mood and affect Debridement Note Post-Debridement Measurements/Treatment WC - Nurse 2 - General Ulcer CM Notes Start: 04/30/18 10:39 Freq: Status: Active Protocol: Activity Type Activity Date Activity User E-Sign Co-Sign Detail Recorded Client Recorded Date Recorded By Document 04/30/18 11:41 [id number] 04/30/18 11:42 04/30/18 11:41 Wound Center Nurse 2 #3 LEFT MEDIAL GREAT TOE -Time 11:42 -Correct Patient Yes -Correct Side, Site, Position Yes -Correct Procedure Yes -Procedure Performed Yes -Type of Procedure Debridement -Clinical Debridement Subcutaneous -Post Debridement Size (cm) - Length 1.0 -Post Debridement Size (cm) - Width 0.8 -Post Debridement Size (cm) - Depth 0.2 -Total Square Cm 0.80 -Wound/Ulcer Outcome Not Healed -Ulcer Cleansing Rinsed/ Irrigated with Saline -Foul Odor after Cleansing No -Bioengineered Tissue No -Bleeding Controlled with Pressure -Treatment Response Procedure Tolerated Well #2 RIGHT 2ND TOE -Time 11:42 -Correct Patient Yes -Correct Side, Site, Position Yes -Correct Procedure Yes -Procedure Performed Yes -Type of Procedure Debridement -Clinical Debridement Subcutaneous -Post Debridement Size (cm) - Length 1.0 -Post Debridement Size (cm) - Width 1.0 -Post Debridement Size (cm) - Depth 0.2 -Total Square Cm 1.00 -Wound/Ulcer Outcome Not Healed -Ulcer Cleansing Rinsed/ Irrigated with Saline -Foul Odor after Cleansing No -Bioengineered Tissue No -Bleeding Controlled with NA -Treatment Response Procedure Tolerated Well Pain Scale: 0-10 Numeric Is Patient Pain Free? Yes Wound debrided: Left lateral great toe Type of Debridement: Excisional debridement Anesthesia Used: 5% Lidocaine Gel Depth: Down to and including healthy tissue, in the subcutaneous layer Percentage of wound debrided: 100 Instrument Used: 5mm curette Tissue Removed: A brain and devitalized tissue Severity: Limited To Skin Breakdown Amount of bleeding with debridement: Mild Bleeding Controlled with: Pressure Patient tolerated procedure well - Additional Wound Wound debrided: Right second toe anterior Type of Debridement: Excisional debridement Anesthesia Used: 5% Lidocaine Gel Depth: Down to and including healthy tissue, in the subcutaneous layer Percentage of wound debrided: 100 Instrument Used: 5mm curette Tissue Removed: Fibrin Severity: Limited To Skin Breakdown Amount of bleeding with debridement: Mild Bleeding Controlled with: Compression and gauze Patient tolerated procedure: Patient tolerated procedure well Assessment/Plan Active Problems Pressure ulcer of toe, stage 2 (Acute) Neuropathy of left lower extremity (Acute) Assessment: Decubitus ulcers from pressure right second toe anterior and left lateral great toe. Neuropathy left leg Plan: Wash the feet with Hibiclens and apply Aquacel silver to the open ulcers gauze and tape. Did discuss with patient to get structures for the shoes so he has more room in the toe area. Daily dressings follow-up in 2 weeks
== END 2018-05-14 23:59 ==
LOC: WC 09:36
PROVIDERS: Family Provider Internal Medicine; PCP Internal Medicine; Visit Provider Nurse Practitioner
DX: L89.892 Pressure ulcer of other site, stage 2 (principal); G57.92 Unspecified mononeuropathy of left lower limb
CPT/HCPCS: 11042; 87070; 87075; 87077; 87186; 87205; 99214; G0463

== ENCOUNTER → 2018-06-07 12:46 | Outpatient (CLI) | payer MEDICARE, SELFPAY ==
[2018-06-07 14:03] LABS: Hematocrit 43.1 % (40-54); Hemoglobin 14.2 g/dl (13.0-16.5); Mean Corp Hgb Conc 32.9 g/gl (32-36); Mean Corpuscular Hgb 31.1 pg (27.0-32.0); Mean Corpuscular Volume 94.5 fL (80-94); Mean Platelet Vol. 9.9 fl (6.2-12.0); Platelet Count 225 K/mm3 (150-450); RBC Distribution Width CV 13.3 % (11.6-14.6); RBC Distribution Width SD 44.4 fl (35.1-43.9); Red Blood Count 4.56 M/mm3 (4.6-6.2); White Blood Count 5.9 K/mm3 (4.4-11.0)
[2018-06-07 14:05] LABS: Scan Indicated on CBC? Y/N NO
[2018-06-07 14:21] LABS: AST(SGOT) 20 U/L (15-37); Alanine Aminotransfer ALT/SGPT 25 U/L (16-61); Albumin, Serum 3.6 g/dL (3.2-5.0); Alkaline Phosphatase 61 U/L (45-117); Anion Gap 8 (5-15); BUN 19 mg/dL (7-18); Calcium,Total 9.1 mg/dL (8.5-10.1); Chloride 105 mmol/L (98-107); Creatinine, Serum 1.27 mg/dL (0.70-1.30); EST Glomerular Filtration Rate 61 mL/min (>60); Est Glom Filt Rate - Afr Amer 74 mL/min (>60); Globulin 3.6 g/dL (2.2-4.2); Glucose 92 mg/dL (74-106); Potassium 4.3 mmol/L (3.5-5.1); Protein, Total 7.2 g/dL (6.4-8.2); Sodium Level 143 mmol/L (136-145)
[2018-06-11 06:07] LABS: QNTFERON TB Ag Minus Nil Value < 0 IU/mL (.); QNTFERON TB Ag Value 0.11 IU/mL (.); QNTFERON TB Mitogen Value > 10.00 IU/mL (.); QNTFERON TB Nil Value 0.19 IU/mL (.)
[2018-06-11 10:52] LABS: QNTIFERON TB Gold Negative (Negative)
== END ==
PROVIDERS: Family Provider Internal Medicine; PCP Internal Medicine; Visit Provider Dermatology Pediatric Dermatology
DX: L40.0 Psoriasis vulgaris (principal); Z79.899 Other long term (current) drug therapy
CPT/HCPCS: 36415; 80053; 85027; 86480

== ENCOUNTER 2018-06-10 11:30 | Outpatient (RCR) | payer MEDICARE, SELFPAY ==
[2018-05-15 01:47] VITALS: BP 115/71; PULSE 82; RESP 18; TEMP 37
[2018-05-21 11:12] VITALS: BP 107/76; PULSE 82; RESP 16; TEMP 36.4
--- NOTE | 2018-05-21 12:19 | PCM.WC.PN ---
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 This has been going on for approximately 3 months he thought it would get better the second toe is completely encompassed with erythema not warm to touch. 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 Patient also has a lot of autoimmune disorders and is on probably medications for that. Progress of Wound: Left great lateral toe is resolved is just callus now and needs to be shaved down. The right second toe is improving and is smaller we will continue to use the Aquacel silver. - Physical Exam Vital Signs Temp Pulse Resp BP 97.5 F L 82 16 107/76 05/21/18 11:12 05/21/18 11:12 05/21/18 11:12 05/21/18 11:12 General: Oriented x3, Cooperative, Well developed HEENT: Atraumatic, PERRLA Oral: Moist Mucosa Neck: Supple, No JVD Lungs: Clear to auscultation, Normal air movement Cardiovascular: Regular rate, Regular Rhythm Abdomen: Bowel Sounds Present, Soft, Non Tender, No Hepato-splenomegaly Extremities: No clubbing, No edema, - - Open ulcer right second toe Wound Measurements and Assessment WC - Nurse 1 - General Ulcer Measurement Start: 05/21/18 11:12 Freq: Status: Active Protocol: Activity Type Activity Date Activity User E-Sign Co-Sign Detail Recorded Client Recorded Date Recorded By Document 05/21/18 11:12 [id number] 05/21/18 11:26 05/21/18 11:12 Wound Center Nurse 1 [Ulcer Assessment] #3 LEFT MEDIAL GREAT TOE -Combined with other wound No -Current Size (cm) - Length 0.1 -Current Size (cm) - Width 0.2 -Current Size (cm) - Depth 0.1 -Total Square Cm 0.02 -Photo Taken No -Epithelialization None Present -Tunneling No -Undermining/Tunneling No -Circular Undermining No -Granulation Amt Medium (34-66%) -Granulation Quality [place] -Slough/Fibrin Yes -Necrosis Amt Medium (34-66%) -Necrotic Tissue Type Adherent Slough -Texture (Talisha-wound Skin Appearance) Callus -Moisture (Talisha-wound Skin Appearance No Abnormality ) Assessed -Color (Talisha-wound Skin Appearance) No Abnormality Assessed -Temperature (Talisha-wound Skin No Abnormality Appearance) (Pt Warm) -Tenderness on Palpation (Talisha-wound No Skin Appearance) -Ulcer Cleansing Rinsed/ Irrigated with Saline -Foul Odor after Cleansing No -Anesthetic Used 4% Lidocaine Solution #2 RIGHT 2ND TOE -Combined with other wound No -Current Size (cm) - Length 0.8 -Current Size (cm) - Width 1.0 -Current Size (cm) - Depth 0.1 -Total Square Cm 0.80 -Photo Taken No -Epithelialization None Present -Tunneling No -Undermining/Tunneling No -Circular Undermining No -Exudate Amt Medium (34-66%) -Exudate Type Yellow/Green -Wound Margin Distinct, Outline Attached -Granulation Amt Medium (34-66%) -Granulation Quality [place] Red -Slough/Fibrin Yes -Necrosis Amt None Present (0 %) -Necrotic Tissue Type Adherent Slough -Structure Exposed None/Limited to Skin Breakdown -Texture (Talisha-wound Skin Appearance) Assessed Callus -Moisture (Talisha-wound Skin Appearance No Abnormality ) Assessed -Color (Talisha-wound Skin Appearance) No Abnormality Assessed -Temperature (Talisha-wound Skin No Abnormality Appearance) (Pt Warm) -Tenderness on Palpation (Talisha-wound Yes Skin Appearance) -Ulcer Cleansing Rinsed/ Irrigated with Saline -Foul Odor after Cleansing No -Anesthetic Used 4% Lidocaine Solution [Edema Assessment] -Lower Limb Edema Present NA WC - Nurse 2 - General Ulcer CM Notes Start: 05/21/18 11:12 Freq: Status: Active Protocol: Activity Type Activity Date Activity User E-Sign Co-Sign Detail Recorded Client Recorded Date Recorded By Document 05/21/18 11:32 MW [id number] 05/21/18 11:38 MW 05/21/18 11:32 Wound Center Nurse 2 [Procedure/Treatment] #3 LEFT MEDIAL GREAT TOE -Time 11:32 -Correct Patient Yes -Correct Side, Site, Position Yes -Correct Procedure Yes -Procedure Performed Yes -Type of Procedure Debridement -Clinical Debridement Selective -Post Debridement Size (cm) - Length 0 -Post Debridement Size (cm) - Width 0 -Post Debridement Size (cm) - Depth 0 -Total Square Cm 0 -Wound/Ulcer Outcome Healed- Epithelialized -Ulcer Cleansing Rinsed/ Irrigated with Saline -Foul Odor after Cleansing No -Bioengineered Tissue No -Bleeding Controlled with Pressure -Treatment Response Procedure Tolerated Well #2 RIGHT 2ND TOE -Time 11:33 -Correct Patient Yes -Correct Side, Site, Position Yes -Correct Procedure Yes -Procedure Performed Yes -Type of Procedure Debridement -Clinical Debridement Subcutaneous -Post Debridement Size (cm) - Length 0.8 -Post Debridement Size (cm) - Width 0.8 -Post Debridement Size (cm) - Depth 0.2 -Total Square Cm 0.64 -Wound/Ulcer Outcome Not Healed -Ulcer Cleansing Rinsed/ Irrigated with Saline -Foul Odor after Cleansing No -Bioengineered Tissue No -Bleeding Controlled with Pressure -Treatment Response Procedure Tolerated Well [See Physician Procedure note for Specifics] Pain Scale: 0-10 Numeric [Pain] -Is Patient Pain Free? Yes Musculoskeletal: No Tenderness to Palpation of Joints or Extremities Lymphatic: No Cervical, Supraclavicular, or Inguinal Adenopathy Neurological: Cranial nerves II-XII grossly intact, Neuro grossly intact Psych/Mental Status: Normal Affect, Appropriate Debridement Note Post-Debridement Measurements/Treatment WC - Nurse 2 - General Ulcer CM Notes Start: 05/21/18 11:12 Freq: Status: Active Protocol: Activity Type Activity Date Activity User E-Sign Co-Sign Detail Recorded Client Recorded Date Recorded By Document 05/21/18 11:32 MW [id number] 05/21/18 11:38 MW 05/21/18 11:32 Wound Center Nurse 2 #3 LEFT MEDIAL GREAT TOE -Time 11:32 -Correct Patient Yes -Correct Side, Site, Position Yes -Correct Procedure Yes -Procedure Performed Yes -Type of Procedure Debridement -Clinical Debridement Selective -Post Debridement Size (cm) - Length 0 -Post Debridement Size (cm) - Width 0 -Post Debridement Size (cm) - Depth 0 -Total Square Cm 0 -Wound/Ulcer Outcome Healed- Epithelialized -Ulcer Cleansing Rinsed/ Irrigated with Saline -Foul Odor after Cleansing No -Bioengineered Tissue No -Bleeding Controlled with Pressure -Treatment Response Procedure Tolerated Well #2 RIGHT 2ND TOE -Time 11:33 -Correct Patient Yes -Correct Side, Site, Position Yes -Correct Procedure Yes -Procedure Performed Yes -Type of Procedure Debridement -Clinical Debridement Subcutaneous -Post Debridement Size (cm) - Length 0.8 -Post Debridement Size (cm) - Width 0.8 -Post Debridement Size (cm) - Depth 0.2 -Total Square Cm 0.64 -Wound/Ulcer Outcome Not Healed -Ulcer Cleansing Rinsed/ Irrigated with Saline -Foul Odor after Cleansing No -Bioengineered Tissue No -Bleeding Controlled with Pressure -Treatment Response Procedure Tolerated Well Pain Scale: 0-10 Numeric Is Patient Pain Free? Yes Wound debrided: Right second toe ulcer Type of Debridement: Excisional debridement Anesthesia Used: 5% Lidocaine Gel Depth: Down to and including healthy tissue, in the subcutaneous layer Instrument Used: 5mm curette Tissue Removed: Devitalized tissue and fibrin Severity: Limited To Skin Breakdown Amount of bleeding with debridement: Mild Bleeding Controlled with: Compression and gauze Patient tolerated procedure well Assessment/Plan Assessment: Decubitus ulcers from pressure right second toe anterior and left lateral great toe. Neuropathy left leg Plan: Wash the feet with Hibiclens and apply Aquacel silver to the open ulcer gauze and tape. Did discuss with patient to get stretchers for the shoes so he has more room in the toe area. Discussed with patient's of buying a mandolin grater for his callus on the lateral left great toe and the lateral right great toe and on the ball of the left foot. Also suggested he buy rabbit ear felt pads cutting out a round [place] to cover the ball of his left ball foot to where we shoes every day. Daily dressings follow-up in 2 weeks
[2018-05-27 10:22] VITALS: BP 117/73; PULSE 73; RESP 18; TEMP 36.5
--- NOTE | 2018-05-27 12:28 | PCM.WC.PN ---
(1) Ulcer of right foot with fat layer exposed Status: Acute Current Visit: Yes Code(s): L97.512 - Non-pressure chronic ulcer of other part of right foot with fat layer exposed (2) Lower extremity neuropathy Status: Acute Current Visit: Yes Code(s): G57.90 - Unspecified mononeuropathy of unspecified lower limb (3) Other hammer toe(s) (acquired), right foot Status: Acute Current Visit: Yes Code(s): M20.41 - Other hammer toe(s) (acquired), right foot (4) Other hammer toe(s) (acquired), left foot Status: Acute Current Visit: Yes Code(s): M20.42 - Other hammer toe(s) (acquired), left foot (5) PVD (peripheral vascular disease) Status: Acute Current Visit: Yes Code(s): I73.9 - Peripheral vascular disease, unspecified (6) Delayed wound healing Status: Acute Current Visit: Yes Code(s): T14.8XXD - Other injury of unspecified body region, subsequent encounter Type of Wound Date of Service: 05/27/18 Chief Complaint: Follow-up on pressure ulcers 2 left medial great toe and right second anterior toe History of Wound: 63-year-old white 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 This has been going on for approximately 3 months he thought it would get better the second toe is completely encompassed with erythema not warm to touch. 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 Patient also has a lot of autoimmune disorders and is on medications for that. Progress of Wound: Patient was seen today as transfer of care. Previous ulcer to the hallux remains healed. Ulcer remains to the dorsal second toe. Patient has been having daily dressings consisting of Aquacel AG to the site. Patient denies any purulence or extending redness. Patient denies any feelings of nausea, vomiting, fever, chills. - Physical Exam Vital Signs Temp Pulse Resp BP 97.7 F L 73 18 117/73 05/27/18 10:22 05/27/18 10:22 05/27/18 10:22 05/27/18 10:22 General: Alert, Oriented x3, Cooperative, No apparent distress Extremities: Capillary Refill Less than 3 Seconds, No Calf Tenderness - Negative Juni and Kaye sign, Diminished Peripheral Pulses - DP and PT pulses faintly palpable bilateral, Edema - Very slight lower extremity edema bilateral Skin: Ulcer/ Wound - Ulcer with fat layer exposed noted to the right dorsal second toe. Measurements noted below. The base is a mixture of adherent slough, fibrin, granular tissue, as well as some slight surrounding hyperkeratotic tissue. There is no probing to bone, no tracking, no undermining, no purulence, no extending cellulitis, no increase in warmth appreciated to the ulcer site. Wound Measurements and Assessment WC - Nurse 1 - General Ulcer Measurement Start: 05/21/18 11:12 Freq: Status: Active Protocol: Activity Type Activity Date Activity User E-Sign Co-Sign Detail Recorded Client Recorded Date Recorded By Document 05/27/18 10:22 [id number] 05/27/18 10:24 05/27/18 10:22 Wound Center Nurse 1 [Ulcer Assessment] #2 RIGHT 2ND TOE -Combined with other wound No -Current Size (cm) - Length 0.5 -Current Size (cm) - Width 0.6 -Current Size (cm) - Depth 0.1 -Total Square Cm 0.30 -Photo Taken No -Epithelialization None Present -Tunneling No -Undermining/Tunneling No -Circular Undermining No -Classification - Thickness Full Thickness without Exposed Support Structure -Exudate Amt Small (1-33%) -Exudate Type Serosanguineous -Wound Margin Distinct, Outline Attached -Granulation Amt Large (67-100%) -Granulation Quality Red -Slough/Fibrin Yes -Necrosis Amt Small (1-33%) -Necrotic Tissue Type Adherent Slough -Structure Exposed Fascia Fat Layer Exposed -Texture (Talisha-wound Skin Appearance) Assessed Friable -Moisture (Talisha-wound Skin Appearance No Abnormality ) Assessed -Color (Talisha-wound Skin Appearance) Assessed Erythema -Temperature (Talisha-wound Skin No Abnormality Appearance) (Pt Warm) -Tenderness on Palpation (Talisha-wound No Skin Appearance) -Ulcer Cleansing Rinsed/ Irrigated with Saline -Foul Odor after Cleansing No -Anesthetic Used 4% Lidocaine Solution [Edema Assessment] -Lower Limb Edema Present No WC - Nurse 2 - General Ulcer CM Notes Start: 05/21/18 11:12 Freq: Status: Active Protocol: Activity Type Activity Date Activity User E-Sign Co-Sign Detail Recorded Client Recorded Date Recorded By Document 05/27/18 11:06 [id number] 05/27/18 11:11 05/27/18 11:06 Wound Center Nurse 2 [Procedure/Treatment] #2 RIGHT 2ND TOE -Time 11:06 -Correct Patient Yes -Correct Side, Site, Position Yes -Correct Procedure Yes -Procedure Performed Yes -Type of Procedure Debridement -Clinical Debridement Subcutaneous -Post Debridement Size (cm) - Length 0.6 -Post Debridement Size (cm) - Width 0.8 -Post Debridement Size (cm) - Depth 0.2 -Total Square Cm 0.48 -Wound/Ulcer Outcome Not Healed -Ulcer Cleansing Not Cleansed -Foul Odor after Cleansing No -Bioengineered Tissue No -Bleeding Controlled with NA -Treatment Response Procedure Tolerated Well [See Physician Procedure note for Specifics] Pain Scale: 0-10 Numeric [Pain] -Is Patient Pain Free? Yes Musculoskeletal: No Tenderness to Palpation of Joints or Extremities, Tenderness - Very slight tenderness with manipulation of ulcer site, - - Bilateral hammertoe deformities digits 2 through 5. Bilateral hallux malleus. Neurological: Sensory exam intact to light touch and pain Psych/Mental Status: Normal Affect, Appropriate Debridement Note Post-Debridement Measurements/Treatment WC - Nurse 2 - General Ulcer CM Notes Start: 05/21/18 11:12 Freq: Status: Active Protocol: Activity Type Activity Date Activity User E-Sign Co-Sign Detail Recorded Client Recorded Date Recorded By Document 05/21/18 11:32 [id number] 05/21/18 11:38 MW Document 05/27/18 11:06 [id number] 05/27/18 11:11 05/21/18 05/27/18 11:32 11:06 Wound Center Nurse 2 #3 LEFT MEDIAL GREAT TOE -Time 11:32 -Correct Patient Yes -Correct Side, Site, Position Yes -Correct Procedure Yes -Procedure Performed Yes -Type of Procedure Debridement -Clinical Debridement Selective -Post Debridement Size (cm) - Length 0 -Post Debridement Size (cm) - Width 0 -Post Debridement Size (cm) - Depth 0 -Total Square Cm 0 -Wound/Ulcer Outcome Healed- Epithelialized -Ulcer Cleansing Rinsed/ Irrigated with Saline -Foul Odor after Cleansing No -Bioengineered Tissue No -Bleeding Controlled with Pressure -Treatment Response Procedure Tolerated Well #2 RIGHT 2ND TOE -Time 11:33 11:06 -Correct Patient Yes Yes -Correct Side, Site, Position Yes Yes -Correct Procedure Yes Yes -Procedure Performed Yes Yes -Type of Procedure Debridement Debridement -Clinical Debridement Subcutaneous Subcutaneous -Post Debridement Size (cm) - Length 0.8 0.6 -Post Debridement Size (cm) - Width 0.8 0.8 -Post Debridement Size (cm) - Depth 0.2 0.2 -Total Square Cm 0.64 0.48 -Wound/Ulcer Outcome Not Healed Not Healed -Ulcer Cleansing Rinsed/ Not Cleansed Irrigated with Saline -Foul Odor after Cleansing No No -Bioengineered Tissue No No -Bleeding Controlled with Pressure NA -Treatment Response Procedure Procedure Tolerated Well Tolerated Well Pain Scale: 0-10 Numeric Is Patient Pain Free? Yes Yes Wound debrided: Right dorsal second toe Laterality: Right Type of Debridement: Excisional debridement Anesthesia Used: 4% Lidocaine Solution Depth: in the subcutaneous layer Percentage of wound debrided: 100 Instrument Used: #15 blade Tissue Removed: Adherent slough, fibrin, hyperkeratotic tissue Severity: Fat Layer Exposed Amount of bleeding with debridement: Mild Bleeding Controlled with: Pressure Patient tolerated procedure well Assessment/Plan Active Problems Ulcer of right foot with fat layer exposed (Acute) Lower extremity neuropathy (Acute) Other hammer toe(s) (acquired), right foot (Acute) Other hammer toe(s) (acquired), left foot (Acute) PVD (peripheral vascular disease) (Acute) Delayed wound healing (Acute) Assessment: Ulcer of fat layer exposed to right dorsal second toe. Neuropathy left leg. Other comorbidities Plan: Patient was carefully examined and evaluated as transfer of care today. Ulcer site was carefully debrided subcutaneously as noted in the clinical panel. Once complete, the site was carefully cleansed and then Keena was applied to the ulcer base followed by dry sterile dressing. The patient is to change his dressing in this manner daily. Dressing supplies were ordered for the patient. The importance of keeping pressure off of the ulcer site was stressed in great detail to the patient today. The importance of proper shoe gear with enough height and width was stressed as well. He was instructed to stay away from tight and constricting boots. LEAS and venous Doppler studies were ordered and we will continue to monitor for these results. We discussed potentially dispensing surgical shoe to this patient to better offload the area. Patient was educated on all signs and symptoms of local and systemic infection and he is instructed to go to the emergency room immediately should he notice any of these. All questions were answered to the patient's satisfaction. He will follow-up in clinic in 1 week to check on progress of ulcer, but was instructed to follow-up sooner if needed.
--- NOTE | 2018-05-27 12:33 | PN.PCM_ITS ---
(1) Ulcer of right foot with fat layer exposed Status: Acute Current Visit: Yes Code(s): L97.512 - Non-pressure chronic ulcer of other part of right foot with fat layer exposed (2) Lower extremity neuropathy Status: Acute Current Visit: Yes Code(s): G57.90 - Unspecified mononeuropathy of unspecified lower limb (3) Other hammer toe(s) (acquired), right foot Status: Acute Current Visit: Yes Code(s): M20.41 - Other hammer toe(s) ( acquired), right foot (4) Other hammer toe(s) (acquired), left foot Status: Acute Current Visit: Yes Code(s): M20.42 - Other hammer toe(s) ( acquired), left foot (5) PVD (peripheral vascular disease) Status: Acute Current Visit: Yes Code(s): I73.9 - Peripheral vascular disease, unspecified (6) Delayed wound healing Status: Acute Current Visit: Yes Code(s): T14.8XXD - Other injury of unspecified body region, subsequent encounter Type of Wound Date of Service: 05/27/18 Chief Complaint: Follow-up on pressure ulcers 2 left medial great toe and right second anterior toe History of Wound: 63-year-old white 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 This has been going on for approximately 3 months he thought it would get better the second toe is completely encompassed with erythema not warm to touch. 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 Patient also has a lot of autoimmune disorders and is on medications for that. Progress of Wound: Patient was seen today as transfer of care. Previous ulcer to the hallux remains healed. Ulcer remains to the dorsal second toe. Patient has been having daily dressings consisting of Aquacel AG to the site. Patient denies any purulence or extending redness. Patient denies any feelings of nausea, vomiting, fever, chills. - Physical Exam Vital Signs Temp Pulse Resp BP 97.7 F L 73 18 117/73 05/27/18 10:22 05/27/18 10:22 05/27/18 10:22 05/27/18 10:22 General: Alert, Oriented x3, Cooperative, No apparent distress Extremities: Capillary Refill Less than 3 Seconds, No Calf Tenderness - Negative Juni and Kaye sign, Diminished Peripheral Pulses - DP and PT pulses faintly palpable bilateral, Edema - Very slight lower extremity edema bilateral Skin: Ulcer/ Wound - Ulcer with fat layer exposed noted to the right dorsal second toe. Measurements noted below. The base is a mixture of adherent slough , fibrin, granular tissue, as well as some slight surrounding hyperkeratotic tissue. There is no probing to bone, no tracking, no undermining, no purulence , no extending cellulitis, no increase in warmth appreciated to the ulcer site. Wound Measurements and Assessment WC - Nurse 1 - General Ulcer Measurement Start: 05/21/18 11:12 Freq: Status: Active Protocol: Activity Type Activity Date Activity User E-Sign Co-Sign Detail Recorded Client Recorded Date Recorded By Document 05/27/18 10:22 [id number] 05/27/18 10:24 05/27/18 10:22 Wound Center Nurse 1 [Ulcer Assessment] #2 RIGHT 2ND TOE -Combined with other wound No -Current Size (cm) - Length 0.5 -Current Size (cm) - Width 0.6 -Current Size (cm) - Depth 0.1 -Total Square Cm 0.30 -Photo Taken No -Epithelialization None Present -Tunneling No -Undermining/Tunneling No -Circular Undermining No -Classification - Thickness Full Thickness without Exposed Support Structure -Exudate Amt Small (1-33%) -Exudate Type Serosanguineous -Wound Margin Distinct, Outline Attached -Granulation Amt Large (67-100%) -Granulation Quality Red -Slough/Fibrin Yes -Necrosis Amt Small (1-33%) -Necrotic Tissue Type Adherent Slough -Structure Exposed Fascia Fat Layer Exposed -Texture (Talisha-wound Skin Appearance) Assessed Friable -Moisture (Talisha-wound Skin Appearance No Abnormality ) Assessed -Color (Talisha-wound Skin Appearance) Assessed Erythema -Temperature (Talisha-wound Skin No Abnormality Appearance) (Pt Warm) -Tenderness on Palpation (Talisha-wound No Skin Appearance) -Ulcer Cleansing Rinsed/ Irrigated with Saline -Foul Odor after Cleansing No -Anesthetic Used 4% Lidocaine Solution [Edema Assessment] -Lower Limb Edema Present No WC - Nurse 2 - General Ulcer CM Notes Start: 05/21/18 11:12 Freq: Status: Active Protocol: Activity Type Activity Date Activity User E-Sign Co-Sign Detail Recorded Client Recorded Date Recorded By Document 05/27/18 11:06 [id number] 05/27/18 11:11 05/27/18 11:06 Wound Center Nurse 2 [Procedure/Treatment] #2 RIGHT 2ND TOE -Time 11:06 -Correct Patient Yes -Correct Side, Site, Position Yes -Correct Procedure Yes -Procedure Performed Yes -Type of Procedure Debridement -Clinical Debridement Subcutaneous -Post Debridement Size (cm) - Length 0.6 -Post Debridement Size (cm) - Width 0.8 -Post Debridement Size (cm) - Depth 0.2 -Total Square Cm 0.48 -Wound/Ulcer Outcome Not Healed -Ulcer Cleansing Not Cleansed -Foul Odor after Cleansing No -Bioengineered Tissue No -Bleeding Controlled with NA -Treatment Response Procedure Tolerated Well [See Physician Procedure note for Specifics] Pain Scale: 0-10 Numeric [Pain] -Is Patient Pain Free? Yes Musculoskeletal: No Tenderness to Palpation of Joints or Extremities, Tenderness - Very slight tenderness with manipulation of ulcer site, - - Bilateral hammertoe deformities digits 2 through 5. Bilateral hallux malleus. Neurological: Sensory exam intact to light touch and pain Psych/Mental Status: Normal Affect, Appropriate Debridement Note Post-Debridement Measurements/Treatment WC - Nurse 2 - General Ulcer CM Notes Start: 05/21/18 11:12 Freq: Status: Active Protocol: Activity Type Activity Date Activity User E-Sign Co-Sign Detail Recorded Client Recorded Date Recorded By Document 05/21/18 11:32 [id number] 05/21/18 11:38 MW Document 05/27/18 11:06 [id number] 05/27/18 11:11 05/21/18 05/27/18 11:32 11:06 Wound Center Nurse 2 #3 LEFT MEDIAL GREAT TOE -Time 11:32 -Correct Patient Yes -Correct Side, Site, Position Yes -Correct Procedure Yes -Procedure Performed Yes -Type of Procedure Debridement -Clinical Debridement Selective -Post Debridement Size (cm) - Length 0 -Post Debridement Size (cm) - Width 0 -Post Debridement Size (cm) - Depth 0 -Total Square Cm 0 -Wound/Ulcer Outcome Healed- Epithelialized -Ulcer Cleansing Rinsed/ Irrigated with Saline -Foul Odor after Cleansing No -Bioengineered Tissue No -Bleeding Controlled with Pressure -Treatment Response Procedure Tolerated Well #2 RIGHT 2ND TOE -Time 11:33 11:06 -Correct Patient Yes Yes -Correct Side, Site, Position Yes Yes -Correct Procedure Yes Yes -Procedure Performed Yes Yes -Type of Procedure Debridement Debridement -Clinical Debridement Subcutaneous Subcutaneous -Post Debridement Size (cm) - Length 0.8 0.6 -Post Debridement Size (cm) - Width 0.8 0.8 -Post Debridement Size (cm) - Depth 0.2 0.2 -Total Square Cm 0.64 0.48 -Wound/Ulcer Outcome Not Healed Not Healed -Ulcer Cleansing Rinsed/ Not Cleansed Irrigated with Saline -Foul Odor after Cleansing No No -Bioengineered Tissue No No -Bleeding Controlled with Pressure NA -Treatment Response Procedure Procedure Tolerated Well Tolerated Well Pain Scale: 0-10 Numeric Is Patient Pain Free? Yes Yes Wound debrided: Right dorsal second toe Laterality: Right Type of Debridement: Excisional debridement Anesthesia Used: 4% Lidocaine Solution Depth: in the subcutaneous layer Percentage of wound debrided: 100 Instrument Used: #15 blade Tissue Removed: Adherent slough, fibrin, hyperkeratotic tissue Severity: Fat Layer Exposed Amount of bleeding with debridement: Mild Bleeding Controlled with: Pressure Patient tolerated procedure well Assessment/Plan Active Problems Ulcer of right foot with fat layer exposed (Acute) Lower extremity neuropathy (Acute) Other hammer toe(s) (acquired), right foot (Acute) Other hammer toe(s) (acquired), left foot (Acute) PVD (peripheral vascular disease) (Acute) Delayed wound healing (Acute) Assessment: Ulcer of fat layer exposed to right dorsal second toe. Neuropathy left leg. Other comorbidities Plan: Patient was carefully examined and evaluated as transfer of care today. Ulcer site was carefully debrided subcutaneously as noted in the clinical panel. Once complete, the site was carefully cleansed and then Keena was applied to the ulcer base followed by dry sterile dressing. The patient is to change his dressing in this manner daily. Dressing supplies were ordered for the patient. The importance of keeping pressure off of the ulcer site was stressed in great detail to the patient today. The importance of proper shoe gear with enough height and width was stressed as well. He was instructed to stay away from tight and constricting boots. LEAS and venous Doppler studies were ordered and we will continue to monitor for these results. We discussed potentially dispensing surgical shoe to this patient to better offload the area. Patient was educated on all signs and symptoms of local and systemic infection and he is instructed to go to the emergency room immediately should he notice any of these. All questions were answered to the patient's satisfaction. He will follow-up in clinic in 1 week to check on progress of ulcer, but was instructed to follow-up sooner if needed.
--- NOTE | 2018-06-10 07:46 | VDLE_ITS ---
Reason For Study: PVD RIGHT LEFT CFV is compressible, spontaneous, phasic, CFV is compressible, spontaneous, phasic, competent and demonstrates normal competent, and demonstrates normal augmentation. augmentation. FV is compressible, spontaneous, phasic, FV is compressible, spontaneous, phasic, competent and demonstrates normal competent and demonstrates normal augmentation. augmentation. POP V is compressible, spontaneous, phasic, POP V is compressible, spontaneous, phasic, competent and demonstrates normal competent and demonstrates normal augmentation. augmentation. T/P Trunk is compressible. T/P Trunk is compressible. PTV is compressible. PTV is compressible. RT PerV is compressible. LT PerV is compressible. SFJ is competent. SFJ is competent. GSV is incompetent for greater than 0.5 GSV is incompetent for greater than 0.5 seconds throughout with a diameter of 0.47 x seconds throughout with a diameter of 0.40 x 0.50 cm. 0.42 cm. ASV below knee is incompetent for greater ASV below knee is incompetent for greater than 0.5 seconds with a diameter of 0.43 x than 0.5 seconds with a diameter of 0.15 x 0.51 cm. 0.15 cm. Incompetent clinical programmer 15 cm above medial Incompetent clinical programmer 23 cm above medial mallelous. mallelous. SSV is incompetent for greater than 0.5 SSV is incompetent for greater than 0.5 seconds with a diameter of 0.26 x 0.23 cm. seconds with a diameter of 0.30 x 0.33 cm. Procedure Exam performed in department. A preliminary report was called and/or faxed to . Interpretation Summary Deep veins of the lower extremities are bilaterally patent and compressible segmentally. There is no evidence of deep vein thrombosis on either side. Valvular competence appears intact within the proximal deep venous systems bilaterally. The greater saphenous veins appear bilaterally patent and compressible segmentally. Sapheno-femoral junctions are bilaterally competent . Segmental valvular incompetence is noted within the greater saphenous veins bilaterally. Small saphenous veins are patent and incompetent bilaterally. An accessory saphenous vein below the knee is incompetent bilaterally. An incompetent clinical programmer vein is noted in the right calf, located 15 centimeters proximal to the right medial malleolus. An incompetent clinical programmer vein is noted in the left calf, located 23 centimeters proximal to the left medial malleolus. Ordering Physician: Osvaldo Francisco Referring Physician: Gonzales Thomas Performed By: Earnestine Caputo RVT and Student
[2018-06-10 11:32] VITALS: BP 124/80; PULSE 81; RESP 16; TEMP 36.6
--- NOTE | 2018-06-10 13:02 | PCM.WC.PN ---
(1) Ulcer of right foot with fat layer exposed Status: Acute Current Visit: Yes Code(s): L97.512 - Non-pressure chronic ulcer of other part of right foot with fat layer exposed (2) Lower extremity neuropathy Status: Acute Current Visit: Yes Code(s): G57.90 - Unspecified mononeuropathy of unspecified lower limb (3) Other hammer toe(s) (acquired), right foot Status: Acute Current Visit: Yes Code(s): M20.41 - Other hammer toe(s) (acquired), right foot (4) Other hammer toe(s) (acquired), left foot Status: Acute Current Visit: Yes Code(s): M20.42 - Other hammer toe(s) (acquired), left foot (5) PVD (peripheral vascular disease) Status: Acute Current Visit: Yes Code(s): I73.9 - Peripheral vascular disease, unspecified (6) Delayed wound healing Status: Acute Current Visit: Yes Code(s): T14.8XXD - Other injury of unspecified body region, subsequent encounter Type of Wound Chief Complaint: Follow-up on pressure ulcers 2 left medial great toe and right second anterior toe History of Wound: 63-year-old white 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 This has been going on for approximately 3 months he thought it would get better the second toe is completely encompassed with erythema not warm to touch. 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 Patient also has a lot of autoimmune disorders and is on medications for that. Progress of Wound: Patient was seen in clinic today after missing last weeks apointment. Ulcer remains to the dorsal second toe but is improving. Patient has been having daily dressings consisting of ramiro to the site. Previous ulcer to left plantar foot is slightly reopened today as well. Patient denies any purulence or extending redness. Patient denies any feelings of nausea, vomiting, fever, chills. - Physical Exam Vital Signs Temp Pulse Resp BP 97.8 F 81 16 124/80 H 06/10/18 11:32 06/10/18 11:32 06/10/18 11:32 06/10/18 11:32 General: Alert, Oriented x3, Cooperative, No apparent distress Extremities: Capillary Refill Less than 3 Seconds, No Calf Tenderness - Negative Juni and Kaye sign, Diminished Peripheral Pulses - DP and PT pulses faintly palpable bilateral, Edema - Very slight lower extremity edema Skin: Ulcer/ Wound - Ulcer with fat layer exposed noted to the right dorsal second toe. Measurements noted below. The base is a mixture of adherent slough, fibrin, granular tissue, as well as some slight surrounding hyperkeratotic tissue. There is no probing to bone, no tracking, no undermining, no purulence, no extending cellulitis, no increase in warmth appreciated to the ulcer site. An area of the previous ulcer to the distal plantar left forefoot is also slightly reopened today. The base is a mixture of adherent slough, fibrin, granular tissue, as well as some slight surrounding hyperkeratotic tissue. There is no probing to bone, no tracking, no undermining, no purulence, no extending cellulitis, no increase in warmth appreciated to the ulcer site. Wound Measurements and Assessment WC - Nurse 1 - General Ulcer Measurement Start: 05/21/18 11:12 Freq: Status: Active Protocol: Activity Type Activity Date Activity User E-Sign Co-Sign Detail Recorded Client Recorded Date Recorded By Document 06/10/18 11:32 [id number] 06/10/18 11:41 06/10/18 11:32 Wound Center Nurse 1 [Ulcer Assessment] #2 RIGHT 2ND TOE -Combined with other wound No -Current Size (cm) - Length 0.1 -Current Size (cm) - Width 0.2 -Current Size (cm) - Depth 0.1 -Total Square Cm 0.02 -Photo Taken No -Epithelialization Medium 34-66% -Tunneling No -Undermining/Tunneling No -Circular Undermining No -Texture (Talisha-wound Skin Appearance) Callus -Temperature (Talisha-wound Skin No Abnormality Appearance) (Pt Warm) -Tenderness on Palpation (Talisha-wound No Skin Appearance) -Ulcer Cleansing Rinsed/ Irrigated with Saline -Foul Odor after Cleansing No -Anesthetic Used 5% Lidocaine Gel [Edema Assessment] -Lower Limb Edema Present NA HEATHER - Nurse 2 - General Ulcer CM Notes Start: 05/21/18 11:12 Freq: Status: Active Protocol: Activity Type Activity Date Activity User E-Sign Co-Sign Detail Recorded Client Recorded Date Recorded By Document 06/10/18 12:00 DV [id number] 06/10/18 12:18 DV 06/10/18 12:00 Wound Center Nurse 2 [Procedure/Treatment] #3 Left Plantar -Time 12:08 -Correct Patient Yes -Correct Side, Site, Position Yes -Correct Procedure Yes -Procedure Performed Yes -Type of Procedure Debridement -Clinical Debridement Subcutaneous -Post Debridement Size (cm) - Length 1.0 -Post Debridement Size (cm) - Width 0.8 -Post Debridement Size (cm) - Depth 0.2 -Total Square Cm 0.80 -Wound/Ulcer Outcome Healed- Epithelialized -Ulcer Cleansing Rinsed/ Irrigated with Saline -Foul Odor after Cleansing No -Bioengineered Tissue No -Bleeding Controlled with Pressure -Treatment Response Procedure Tolerated Well #2 RIGHT 2ND TOE -Time 12:06 -Correct Patient Yes -Correct Side, Site, Position Yes -Correct Procedure Yes -Procedure Performed Yes -Type of Procedure Debridement -Clinical Debridement Subcutaneous -Post Debridement Size (cm) - Length 0.4 -Post Debridement Size (cm) - Width 0.5 -Post Debridement Size (cm) - Depth 0.1 -Total Square Cm 0.20 -Wound/Ulcer Outcome Not Healed -Ulcer Cleansing Rinsed/ Irrigated with Saline -Foul Odor after Cleansing No -Bioengineered Tissue No -Bleeding Controlled with Pressure -Treatment Response Procedure Tolerated Well [See Physician Procedure note for Specifics] Pain Scale: 0-10 Numeric [Pain] -Is Patient Pain Free? No Musculoskeletal: No Tenderness to Palpation of Joints or Extremities, Tenderness - Very slight tenderness with manipulation of ulcer site, - - Hammertoe deformities of digits 2 through 5 bilateral. Bilateral hallux malleus deformity. Neurological: Sensory exam intact to light touch and pain Psych/Mental Status: Normal Affect, Appropriate Debridement Note Post-Debridement Measurements/Treatment WC - Nurse 2 - General Ulcer CM Notes Start: 05/21/18 11:12 Freq: Status: Active Protocol: Activity Type Activity Date Activity User E-Sign Co-Sign Detail Recorded Client Recorded Date Recorded By Document 05/21/18 11:32 MW [id number] 05/21/18 11:38 MW Document 05/27/18 11:06 CS [id number] 05/27/18 11:11 CS Document 06/10/18 12:00 DV [id number] 09/27/18 12:18 DV 05/21/18 05/27/18 06/10/18 11:32 11:06 12:00 Wound Center Nurse 2 #3 Left Plantar -Time 12:08 -Correct Patient Yes -Correct Side, Site, Position Yes -Correct Procedure Yes -Procedure Performed Yes -Type of Procedure Debridement -Clinical Debridement Subcutaneous -Post Debridement Size (cm) - Length 1.0 -Post Debridement Size (cm) - Width 0.8 -Post Debridement Size (cm) - Depth 0.2 -Total Square Cm 0.80 -Wound/Ulcer Outcome Healed- Epithelialized -Ulcer Cleansing Rinsed/ Irrigated with Saline -Foul Odor after Cleansing No -Bioengineered Tissue No -Bleeding Controlled with Pressure -Treatment Response Procedure Tolerated Well #3 LEFT MEDIAL GREAT TOE -Time 11:32 -Correct Patient Yes -Correct Side, Site, Position Yes -Correct Procedure Yes -Procedure Performed Yes -Type of Procedure Debridement -Clinical Debridement Selective -Post Debridement Size (cm) - Length 0 -Post Debridement Size (cm) - Width 0 -Post Debridement Size (cm) - Depth 0 -Total Square Cm 0 -Wound/Ulcer Outcome Healed- Epithelialized -Ulcer Cleansing Rinsed/ Irrigated with Saline -Foul Odor after Cleansing No -Bioengineered Tissue No -Bleeding Controlled with Pressure -Treatment Response Procedure Tolerated Well #2 RIGHT 2ND TOE -Time 11:33 11:06 12:06 -Correct Patient Yes Yes Yes -Correct Side, Site, Position Yes Yes Yes -Correct Procedure Yes Yes Yes -Procedure Performed Yes Yes Yes -Type of Procedure Debridement Debridement Debridement -Clinical Debridement Subcutaneous Subcutaneous Subcutaneous -Post Debridement Size (cm) - Length 0.8 0.6 0.4 -Post Debridement Size (cm) - Width 0.8 0.8 0.5 -Post Debridement Size (cm) - Depth 0.2 0.2 0.1 -Total Square Cm 0.64 0.48 0.20 -Wound/Ulcer Outcome Not Healed Not Healed Not Healed -Ulcer Cleansing Rinsed/ Not Cleansed Rinsed/ Irrigated with Irrigated with Saline Saline -Foul Odor after Cleansing No No No -Bioengineered Tissue No No No -Bleeding Controlled with Pressure NA Pressure -Treatment Response Procedure Procedure Procedure Tolerated Well Tolerated Well Tolerated Well Pain Scale: 0-10 Numeric Is Patient Pain Free? Yes Yes No Wound debrided: Right dorsal second toe Laterality: Right Type of Debridement: Excisional debridement Anesthesia Used: 4% Lidocaine Solution Depth: in the subcutaneous layer Percentage of wound debrided: 100 Instrument Used: #15 blade Tissue Removed: Adherent slough, fibrin, hyperkeratotic tissue Severity: Fat Layer Exposed Amount of bleeding with debridement: Mild Bleeding Controlled with: Pressure Patient tolerated procedure well - Additional Wound Wound debrided: Left distal plantar foot Laterality: Left Type of Debridement: Excisional debridement Anesthesia Used: 4% Lidocaine Solution Depth: in the subcutaneous layer Percentage of wound debrided: 100 Instrument Used: #15 blade Tissue Removed: Adherent slough, fibrin, hyperkeratotic tissue Severity: Fat Layer Exposed Amount of bleeding with debridement: Mild Bleeding Controlled with: Pressure Patient tolerated procedure: Patient tolerated procedure well Assessment/Plan Active Problems Ulcer of right foot with fat layer exposed (Acute) Lower extremity neuropathy (Acute) Other hammer toe(s) (acquired), right foot (Acute) Other hammer toe(s) (acquired), left foot (Acute) PVD (peripheral vascular disease) (Acute) Delayed wound healing (Acute) Assessment: Ulcer of fat layer exposed to right dorsal second toe. Neuropathy left leg. Other comorbidities Plan: Patient was carefully examined and evaluated again today. Ulcer slightly improved to the right dorsal second toe. Ulcer to plantar distal left forefoot slightly reopened. Ulcer sites were carefully debrided subcutaneously as noted in the clinical panel. Once complete, the sits were carefully cleansed and then Ramiro was applied to the ulcer base of the right second toe, and Aquacel Ag was applied to the ulcer base of the left plantar distal foot, these were both followed by dry sterile dressing. The patient is to change his dressings in this manner daily. The importance of keeping pressure off of the ulcer site was stressed in great detail to the patient today. The importance of proper shoe gear with enough height and width was stressed as well. He was instructed to stay away from tight and constricting boots. He admits to walking without any protection to the left plantar foot. I stressed the importance of wearing his AFO that he got from [employer], as this has an offloading pocket in the exact area of his ulcer. He was instructed to keep pressure completely off of the ulcer site. LEAS and venous Doppler studies were ordered and the results were reviewed. Final report will be placed in the patient's chart. We discussed potentially dispensing surgical shoe to this patient to better offload the area to the right dorsal second toe. Patient was educated on all signs and symptoms of local and systemic infection and he is instructed to go to the emergency room immediately should he notice any of these. All questions were answered to the patient's satisfaction. He will follow-up in clinic in 1 week to check on progress of ulcer, but was instructed to follow-up sooner if needed.
--- NOTE | 2018-06-12 17:20 | LEAS_ITS ---
Arterial Study - Arterial Study Arterial Study: This is a 63-year-old male with a history of peripheral neuropathy. The patient presents with a chronic nonhealing wound of the right second toe. Suspecting the presence of atherosclerotic peripheral arterial occlusive disease, the patient was brought to the noninvasive vascular laboratory at this time for the purpose of bilateral noninvasive lower extremity arterial assessment. Doppler signal assessment was used to evaluate the pulses at ankle level bilaterally. The posterior tibial and dorsalis pedis pulses were triphasic bilaterally. Segmental limb pressures were obtained bilaterally. The right ankle pressure, as determined by posterior tibial pulse, was measured at 160 mmHg. The right ankle pressure, as determined by dorsalis pedis pulse, was measured at 167 mmHg. The right digital pressure was measured at 118 mmHg. The left ankle pressure, as determined by posterior tibial pulse, was measured at 155 mmHg. The left ankle pressure, as determined by dorsalis pedis pulse, was measured at 162 mmHg. The left digital pressure was measured at 150 mmHg. Pulse?volume recordings were obtained bilaterally and segmentally. Waveform amplitudes appeared to be satisfactory at all levels bilaterally, including low thigh, calf, ankle, and digital levels. Resting ankle?brachial indices were calculated bilaterally. The resting right ankle?brachial index was calculated to be 1.33. The resting left ankle?brachial index was calculated to be 1.29. Digital?brachial indices were calculated bilaterally. The right digital- brachial index was calculated to be 0.94. The left digital-brachial index was calculated to be 1.19. Impression: Based upon the findings of this resting noninvasive lower extremity arterial study, there is no evidence of significant atherosclerotic peripheral arterial occlusive disease in the lower extremities bilaterally. Triphasic waveforms are noted at ankle level bilaterally. Resting ankle?brachial indices were bilaterally normal. Digital-brachial indices were also normal bilaterally. In summary, this represents a normal resting noninvasive lower extremity arterial study bilaterally.
== END 2018-06-13 23:59 ==
LOC: WC 11:30
PROVIDERS: Family Provider Internal Medicine; PCP Internal Medicine; Referring Provider Podiatrist; Visit Provider Podiatrist
DX: I73.9 Peripheral vascular disease, unspecified (principal); L89.892 Pressure ulcer of other site, stage 2; G57.92 Unspecified mononeuropathy of left lower limb; M20.41 Other hammer toe(s) (acquired), right foot; R60.0 Localized edema
CPT/HCPCS: 11042; 93923; 93970; 97597

== ENCOUNTER 2018-07-08 11:30 | Outpatient (RCR) | payer MEDICARE, SELFPAY ==
[2018-06-14 01:19] VITALS: BP 124/80; PULSE 81; RESP 16; TEMP 36.6
[2018-06-17 11:15] VITALS: BP 138/80; PULSE 81; RESP 16; TEMP 36.4
--- NOTE | 2018-06-17 13:48 | PN.PCM_ITS ---
(1) Ulcer of right foot with fat layer exposed Status: Acute Current Visit: No Code(s): L97.512 - Non-pressure chronic ulcer of other part of right foot with fat layer exposed (2) Chronic ulcer of left foot with fat layer exposed Status: Acute Current Visit: Yes Code(s): L97.522 - Non-pressure chronic ulcer of other part of left foot with fat layer exposed (3) Lower extremity neuropathy Status: Acute Current Visit: No Code(s): G57.90 - Unspecified mononeuropathy of unspecified lower limb (4) Other hammer toe(s) (acquired), right foot Status: Acute Current Visit: No Code(s): M20.41 - Other hammer toe(s) (acquired), right foot (5) Other hammer toe(s) (acquired), left foot Status: Acute Current Visit: No Code(s): M20.42 - Other hammer toe(s) (acquired), left foot (6) PVD (peripheral vascular disease) Status: Acute Current Visit: No Code(s): I73.9 - Peripheral vascular disease, unspecified (7) Delayed wound healing Status: Acute Current Visit: No Code(s): T14.8XXD - Other injury of unspecified body region, subsequent encounter Type of Wound Chief Complaint: Follow-up on pressure ulcers 2 left medial great toe and right second anterior toe History of Wound: 63-year-old white 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 This has been going on for approximately 3 months he thought it would get better the second toe is completely encompassed with erythema not warm to touch. 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 Patient also has a lot of autoimmune disorders and is on medications for that. Progress of Wound: Patient was seen in clinic today. Ulcer remains to the right dorsal second toe but is improving as well as the plantar left foot ulcer. Patient has been having daily dressings consisting of keena to the site. Patient denies any purulence or extending redness. Patient denies any feelings of nausea, vomiting, fever, chills. - Physical Exam Vital Signs Temp Pulse Resp BP 97.5 F L 81 16 138/80 H 06/17/18 11:15 06/17/18 11:15 06/17/18 11:15 06/17/18 11:15 General: Alert, Oriented x3, Cooperative, No apparent distress Extremities: Capillary Refill Less than 3 Seconds, No Calf Tenderness - Negative Juni and Kaye sign, Diminished Peripheral Pulses - DP and PT pulses faintly palpable bilateral, Edema - Slight lower extremity edema Skin: Ulcer/ Wound - Ulcer with fat layer exposed to the right dorsal second to e. Measurements are noted below. The base continues to be a mixture of adherent slough, fibrin, granular tissue as well as some slight surrounding hyperkeratotic tissue. There is no probing to bone, no tracking, no undermining, no purulence, no extending cellulitis, no increase in warmth to the area today. Ulcer also noted to distal plantar left forefoot. Measurements noted below. Base is a mixture of adherent slough, fibrin, granular tissue, as well as some slight surrounding hyperkeratotic tissue there is no probing to bone, no tracking, no undermining, no purulence, no extending cellulitis, no increase in warmth at this time. Each ulcer site has shown improvement over the last week. Wound Measurements and Assessment WC - Nurse 1 - General Ulcer Measurement Start: 06/17/18 11:15 Freq: Status: Active Protocol: Activity Type Activity Date Activity User E-Sign Co-Sign Detail Recorded Client Recorded Date Recorded By Document 06/17/18 11:15 [facility] [id number] 06/17/18 11:24 [facility] 06/17/18 11:15 Wound Center Nurse 1 [Ulcer Assessment] #3 Left Plantar -Combined with other wound No -Current Size (cm) - Length 0.1 -Current Size (cm) - Width 0.1 -Current Size (cm) - Depth 0.1 -Total Square Cm 0.01 -Photo Taken No -Epithelialization Large 67-100% -Texture (Talisha-wound Skin Appearance) Callus -Moisture (Talisha-wound Skin Appearance Dry/Scaly ) -Color (Talisha-wound Skin Appearance) Assessed -Temperature (Talisha-wound Skin No Abnormality Appearance) (Pt Warm) -Tenderness on Palpation (Talisha-wound No Skin Appearance) -Ulcer Cleansing Rinsed/ Irrigated with Saline -Foul Odor after Cleansing No -Anesthetic Used 4% Lidocaine Solution #2 RIGHT 2ND TOE -Combined with other wound No -Current Size (cm) - Length 0.3 -Current Size (cm) - Width 0.5 -Current Size (cm) - Depth 0.1 -Total Square Cm 0.15 -Photo Taken No -Epithelialization None Present -Tunneling No -Undermining/Tunneling No -Circular Undermining No -Exudate Amt None Present (0 %) -Wound Margin Distinct, Outline Attached -Granulation Amt None Present (0 %) -Slough/Fibrin Yes -Necrosis Amt Large (67-100%) -Necrotic Tissue Type Adherent Slough -Texture (Talisha-wound Skin Appearance) Callus Scarring -Moisture (Talisha-wound Skin Appearance Dry/Scaly ) -Color (Talisha-wound Skin Appearance) Assessed -Temperature (Talisha-wound Skin No Abnormality Appearance) (Pt Warm) -Tenderness on Palpation (Talisha-wound No Skin Appearance) -Ulcer Cleansing Rinsed/ Irrigated with Saline -Foul Odor after Cleansing No -Anesthetic Used 4% Lidocaine Solution WC - Nurse 2 - General Ulcer CM Notes Start: 06/17/18 11:15 Freq: Status: Active Protocol: Activity Type Activity Date Activity User E-Sign Co-Sign Detail Recorded Client Recorded Date Recorded By Document 06/17/18 11:56 DV [id number] 06/17/18 11:58 DV 06/17/18 11:56 Wound Center Nurse 2 [Procedure/Treatment] #3 Left Plantar -Time 11:58 -Correct Patient Yes -Correct Side, Site, Position Yes -Correct Procedure Yes -Procedure Performed Yes -Type of Procedure Debridement -Clinical Debridement Subcutaneous -Post Debridement Size (cm) - Length 0.2 -Post Debridement Size (cm) - Width 0.2 -Post Debridement Size (cm) - Depth 0.1 -Total Square Cm 0.04 -Wound/Ulcer Outcome Not Healed -Ulcer Cleansing Rinsed/ Irrigated with Saline -Foul Odor after Cleansing No -Bioengineered Tissue No -Bleeding Controlled with Pressure -Treatment Response Procedure Tolerated Well #2 RIGHT 2ND TOE -Time 11:56 -Correct Patient Yes -Correct Side, Site, Position Yes -Correct Procedure Yes -Procedure Performed Yes -Type of Procedure Debridement -Clinical Debridement Subcutaneous -Post Debridement Size (cm) - Length 0.2 -Post Debridement Size (cm) - Width 0.3 -Post Debridement Size (cm) - Depth 0.1 -Total Square Cm 0.06 -Wound/Ulcer Outcome Not Healed -Ulcer Cleansing Rinsed/ Irrigated with Saline -Bleeding Controlled with Pressure -Treatment Response Procedure Tolerated Well [See Physician Procedure note for Specifics] Pain Scale: 0-10 Numeric [Pain] -Is Patient Pain Free? Yes Musculoskeletal: No Tenderness to Palpation of Joints or Extremities, Tenderness - Some very minor tenderness with manipulation of ulcer site, - - Hammertoe deformities to digits 2 through 5 bilateral bilateral hallux malleus deformities. Neurological: Sensory exam intact to light touch and pain Psych/Mental Status: Normal Affect, Appropriate Debridement Note Post-Debridement Measurements/Treatment WC - Nurse 2 - General Ulcer CM Notes Start: 06/17/18 11:15 Freq: Status: Active Protocol: Activity Type Activity Date Activity User E-Sign Co-Sign Detail Recorded Client Recorded Date Recorded By Document 06/17/18 11:56 DV [id number] 06/17/18 11:58 DV 06/17/18 11:56 Wound Center Nurse 2 #3 Left Plantar -Time 11:58 -Correct Patient Yes -Correct Side, Site, Position Yes -Correct Procedure Yes -Procedure Performed Yes -Type of Procedure Debridement -Clinical Debridement Subcutaneous -Post Debridement Size (cm) - Length 0.2 -Post Debridement Size (cm) - Width 0.2 -Post Debridement Size (cm) - Depth 0.1 -Total Square Cm 0.04 -Wound/Ulcer Outcome Not Healed -Ulcer Cleansing Rinsed/ Irrigated with Saline -Foul Odor after Cleansing No -Bioengineered Tissue No -Bleeding Controlled with Pressure -Treatment Response Procedure Tolerated Well #2 RIGHT 2ND TOE -Time 11:56 -Correct Patient Yes -Correct Side, Site, Position Yes -Correct Procedure Yes -Procedure Performed Yes -Type of Procedure Debridement -Clinical Debridement Subcutaneous -Post Debridement Size (cm) - Length 0.2 -Post Debridement Size (cm) - Width 0.3 -Post Debridement Size (cm) - Depth 0.1 -Total Square Cm 0.06 -Wound/Ulcer Outcome Not Healed -Ulcer Cleansing Rinsed/ Irrigated with Saline -Bleeding Controlled with Pressure -Treatment Response Procedure Tolerated Well Pain Scale: 0-10 Numeric Is Patient Pain Free? Yes Wound debrided: Right dorsal second toe Laterality: Right Type of Debridement: Excisional debridement Anesthesia Used: 4% Lidocaine Solution Depth: in the subcutaneous layer Percentage of wound debrided: 100 Instrument Used: #15 blade Tissue Removed: Adherent slough, fibrin, hyperkeratotic tissue Severity: Fat Layer Exposed Amount of bleeding with debridement: Mild Bleeding Controlled with: Pressure Patient tolerated procedure well - Additional Wound Wound debrided: Left distal plantar foot Laterality: Left Type of Debridement: Excisional debridement Anesthesia Used: 4% Lidocaine Solution Depth: in the subcutaneous layer Percentage of wound debrided: 100 Instrument Used: #15 blade Tissue Removed: Adherent slough, fibrin, hyperkeratotic tissue Severity: Fat Layer Exposed Amount of bleeding with debridement: Mild Bleeding Controlled with: Pressure Patient tolerated procedure: Patient tolerated procedure well Assessment/Plan Active Problems Chronic ulcer of left foot with fat layer exposed (Acute) Assessment: Ulcer of fat layer exposed to right dorsal second toe. Neuropathy left leg. Other comorbidities Plan: Patient was carefully examined and evaluated again today. Ulcers slightly improved to the right dorsal second toe and left distal plantar forefoot. Ulcer sites were carefully debrided subcutaneously as noted in the clinical panel. Once complete, the sites were carefully cleansed and then Keena was applied to the ulcer base of the right second toe, and Aquacel Ag was applied to the ulcer base of the left plantar distal foot, these were both followed by dry sterile dressing. The patient is to change his dressings in this manner daily. The importance of keeping pressure off of the ulcer site was stressed in great detail to the patient today. The importance of proper shoe gear with enough height and width was stressed as well. He was instructed to stay away from tight and constricting boots. He admits to walking without any protection to the left plantar foot again this week, but says he has been much better about this. I stressed the importance of wearing his AFO that he got from [employer], as this has an offloading pocket in the exact area of his ulcer. He was instructed to keep pressure completely off of the ulcer site. LEAS and venous Doppler studies were ordered and the results were reviewed. Final report will be placed in the patient's chart. We discussed potentially dispensing surgical shoe to this patient to better offload the area to the right dorsal second toe. Patient was educated on all signs and symptoms of local and systemic infection and he is instructed to go to the emergency room immediately should he notice any of these. All questions were answered to the patient's satisfaction. He will follow-up in clinic in 1 week to check on progress of ulcer, but was instructed to follow-up sooner if needed.
[2018-06-24 11:23] VITALS: BP 115/79; PULSE 71; RESP 18; TEMP 36.4
--- NOTE | 2018-06-24 13:42 | PCM.WC.PN ---
(1) Ulcer of right foot with fat layer exposed Status: Acute Current Visit: No Code(s): L97.512 - Non-pressure chronic ulcer of other part of right foot with fat layer exposed (2) Chronic ulcer of left foot with fat layer exposed Status: Acute Current Visit: Yes Code(s): L97.522 - Non-pressure chronic ulcer of other part of left foot with fat layer exposed (3) Lower extremity neuropathy Status: Acute Current Visit: No Code(s): G57.90 - Unspecified mononeuropathy of unspecified lower limb (4) Other hammer toe(s) (acquired), right foot Status: Acute Current Visit: No Code(s): M20.41 - Other hammer toe(s) (acquired), right foot (5) Other hammer toe(s) (acquired), left foot Status: Acute Current Visit: No Code(s): M20.42 - Other hammer toe(s) (acquired), left foot (6) PVD (peripheral vascular disease) Status: Acute Current Visit: No Code(s): I73.9 - Peripheral vascular disease, unspecified (7) Delayed wound healing Status: Acute Current Visit: No Code(s): T14.8XXD - Other injury of unspecified body region, subsequent encounter Type of Wound Chief Complaint: Follow-up on pressure ulcers 2 left medial great toe and right second anterior toe History of Wound: 63-year-old white 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 This has been going on for approximately 3 months he thought it would get better the second toe is completely encompassed with erythema not warm to touch. 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 Patient also has a lot of autoimmune disorders and is on medications for that. Progress of Wound: Patient was seen in clinic today. Ulcer size continue to improve to right dorsal second toe and left plantar forefoot. Patient has been having daily dressing changes. Patient denies any purulence or extending redness. Patient denies any feelings of nausea, vomiting, fever, chills. - Physical Exam Vital Signs Temp Pulse Resp BP 97.6 F L 71 18 115/79 06/24/18 11:23 06/24/18 11:23 06/24/18 11:23 06/24/18 11:23 General: Alert, Oriented x3, Cooperative, No apparent distress Extremities: Capillary Refill Less than 3 Seconds, No Calf Tenderness - Negative Juni and Kaye sign, Diminished Peripheral Pulses - DP and PT pulses faintly palpable bilateral, Edema - Slight lower extremity edema Skin: Ulcer/ Wound - Ulcer with fat layer exposed to the right dorsal second toe. Measurements are noted below. The base continues to be a mixture of adherent slough, fibrin as well as granular tissue with some slight hyperkeratotic tissue also noted. This site continues to improve. There is no probing to bone, no tracking, no undermining, no purulence, no extending cellulitis, no increase in warmth or any other signs of infection appreciated to the area today. Ulcer also appreciated to the distal plantar left forefoot. This area continues to improve as well measurements are noted below. The base is mixture of adherent slough, fibrin, granular tissue as well as some slight surrounding hyperkeratotic tissue. There continues to be no probing to bone, no tracking, no undermining, no purulence, no extending cellulitis, no increase in warmth. Wound Measurements and Assessment WC - Nurse 1 - General Ulcer Measurement Start: 06/17/18 11:15 Freq: Status: Active Protocol: Activity Type Activity Date Activity User E-Sign Co-Sign Detail Recorded Client Recorded Date Recorded By Document 06/24/18 11:23 DL [id number] 06/24/18 11:27 DL 06/24/18 11:23 Wound Center Nurse 1 [Ulcer Assessment] #4 Left Plantar -Current Size (cm) - Length 0.2 -Current Size (cm) - Width 0.2 -Current Size (cm) - Depth 0.2 -Total Square Cm 0.04 -Photo Taken No -Exudate Amt None Present (0 %) -Wound Margin Flat & Intact -Granulation Amt Small (1-33%) -Granulation Quality [place] -Necrosis Amt Small (1-33%) -Necrotic Tissue Type Adherent Slough -Structure Exposed N/A -Texture (Talisha-wound Skin Appearance) Scarring -Moisture (Talisha-wound Skin Appearance Dry/Scaly ) -Color (Talisha-wound Skin Appearance) No Abnormality -Temperature (Talisha-wound Skin No Abnormality Appearance) (Pt Warm) -Tenderness on Palpation (Talisha-wound No Skin Appearance) -Ulcer Cleansing Rinsed/ Irrigated with Saline -Foul Odor after Cleansing No -Anesthetic Used 4% Lidocaine Solution #2 RIGHT 2ND TOE -Current Size (cm) - Length 0.2 -Current Size (cm) - Width 0.2 -Current Size (cm) - Depth 0.1 -Total Square Cm 0.04 -Photo Taken No -Exudate Amt None Present (0 %) -Wound Margin Flat & Intact -Granulation Amt None Present (0 %) -Necrosis Amt Small (1-33%) -Necrotic Tissue Type Adherent Slough -Structure Exposed N/A -Texture (Talisha-wound Skin Appearance) Localized Edema -Moisture (Talisha-wound Skin Appearance No Abnormality ) -Color (Talisha-wound Skin Appearance) Erythema -Temperature (Talisha-wound Skin No Abnormality Appearance) (Pt Warm) -Ulcer Cleansing Rinsed/ Irrigated with Saline -Foul Odor after Cleansing No -Anesthetic Used 4% Lidocaine Solution WC - Nurse 2 - General Ulcer CM Notes Start: 06/17/18 11:15 Freq: Status: Active Protocol: Activity Type Activity Date Activity User E-Sign Co-Sign Detail Recorded Client Recorded Date Recorded By Document 06/24/18 12:16 DV [id number] 06/24/18 12:19 DV 06/24/18 12:16 Wound Center Nurse 2 [Procedure/Treatment] #4 Left Plantar -Time 12:17 -Correct Patient Yes -Correct Side, Site, Position Yes -Correct Procedure Yes -Procedure Performed Yes -Type of Procedure Debridement -Clinical Debridement Subcutaneous -Post Debridement Size (cm) - Length 0.2 -Post Debridement Size (cm) - Width 0.2 -Post Debridement Size (cm) - Depth 0.1 -Total Square Cm 0.04 -Wound/Ulcer Outcome Not Healed -Ulcer Cleansing Rinsed/ Irrigated with Saline -Foul Odor after Cleansing No -Bioengineered Tissue No -Bleeding Controlled with Pressure -Treatment Response Procedure Tolerated Well #2 RIGHT 2ND TOE -Time 12:17 -Correct Patient Yes -Correct Side, Site, Position Yes -Correct Procedure Yes -Procedure Performed Yes -Type of Procedure Debridement -Clinical Debridement Subcutaneous -Post Debridement Size (cm) - Length 0.1 -Post Debridement Size (cm) - Width 0.1 -Post Debridement Size (cm) - Depth 0.1 -Total Square Cm 0.01 -Wound/Ulcer Outcome Not Healed -Ulcer Cleansing Rinsed/ Irrigated with Saline -Foul Odor after Cleansing No -Bioengineered Tissue No -Bleeding Controlled with Pressure -Treatment Response Procedure Tolerated Well [See Physician Procedure note for Specifics] Pain Scale: 0-10 Numeric [Pain] -Is Patient Pain Free? Yes Musculoskeletal: No Tenderness to Palpation of Joints or Extremities, Tenderness - Slight tenderness with manipulation of ulcer site, - - Hammertoe deformities noted to digits 2-5 of the right and left foot. Bilateral hallux malleus deformities. Neurological: Sensory exam intact to light touch and pain Psych/Mental Status: Normal Affect, Appropriate Debridement Note Post-Debridement Measurements/Treatment WC - Nurse 2 - General Ulcer CM Notes Start: 06/17/18 11:15 Freq: Status: Active Protocol: Activity Type Activity Date Activity User E-Sign Co-Sign Detail Recorded Client Recorded Date Recorded By Document 06/17/18 11:56 DV [id number] 06/17/18 11:58 DV Document 06/24/18 12:16 DV [id number] 06/24/18 12:19 DV 06/17/18 06/24/18 11:56 12:16 Wound Center Nurse 2 #4 Left Plantar -Time 11:58 12:17 -Correct Patient Yes Yes -Correct Side, Site, Position Yes Yes -Correct Procedure Yes Yes -Procedure Performed Yes Yes -Type of Procedure Debridement Debridement -Clinical Debridement Subcutaneous Subcutaneous -Post Debridement Size (cm) - Length 0.2 0.2 -Post Debridement Size (cm) - Width 0.2 0.2 -Post Debridement Size (cm) - Depth 0.1 0.1 -Total Square Cm 0.04 0.04 -Wound/Ulcer Outcome Not Healed Not Healed -Ulcer Cleansing Rinsed/ Rinsed/ Irrigated with Irrigated with Saline Saline -Foul Odor after Cleansing No No -Bioengineered Tissue No No -Bleeding Controlled with Pressure Pressure -Treatment Response Procedure Procedure Tolerated Well Tolerated Well #2 RIGHT 2ND TOE -Time 11:56 12:17 -Correct Patient Yes Yes -Correct Side, Site, Position Yes Yes -Correct Procedure Yes Yes -Procedure Performed Yes Yes -Type of Procedure Debridement Debridement -Clinical Debridement Subcutaneous Subcutaneous -Post Debridement Size (cm) - Length 0.2 0.1 -Post Debridement Size (cm) - Width 0.3 0.1 -Post Debridement Size (cm) - Depth 0.1 0.1 -Total Square Cm 0.06 0.01 -Wound/Ulcer Outcome Not Healed Not Healed -Ulcer Cleansing Rinsed/ Rinsed/ Irrigated with Irrigated with Saline Saline -Foul Odor after Cleansing No -Bioengineered Tissue No -Bleeding Controlled with Pressure Pressure -Treatment Response Procedure Procedure Tolerated Well Tolerated Well Pain Scale: 0-10 Numeric Is Patient Pain Free? Yes Yes Wound debrided: Left distal plantar foot Laterality: Left Type of Debridement: Excisional debridement Anesthesia Used: 4% Lidocaine Solution Depth: in the subcutaneous layer Percentage of wound debrided: 100 Instrument Used: #15 blade Tissue Removed: Adherent slough, fibrin, hyperkeratotic tissue Severity: Fat Layer Exposed Amount of bleeding with debridement: Mild Bleeding Controlled with: Pressure Patient tolerated procedure well Assessment/Plan Active Problems Chronic ulcer of left foot with fat layer exposed (Acute) Assessment: Ulcer of fat layer exposed to right dorsal second toe. Neuropathy left leg. Other comorbidities Plan: Patient was carefully examined and evaluated again today. Ulcers slightly improved to the right dorsal second toe and left distal plantar forefoot again this week. Ulcer sites were carefully debrided subcutaneously as noted in the clinical panel. Once complete, the sites were carefully cleansed and then each site was dressed with Aquacel Ag followed by dry sterile dressing and Tubigrip for compression. The patient is to change his dressings in this manner daily. The importance of keeping pressure off of the ulcer site was stressed in great detail to the patient today. The importance of proper shoe gear with enough height and width was stressed as well. He was instructed to stay away from tight and constricting boots. He admits to walking without any protection to the left plantar foot again this week at times. I stressed the importance of wearing his AFO that he got from [email or web address], as this has an offloading pocket in the exact area of his ulcer. He was instructed to keep pressure completely off of the ulcer site. LEAS and venous Doppler studies were ordered and the results were reviewed. Final report will be placed in the patient's chart. We discussed potentially dispensing surgical shoe to this patient to better offload the area to the right dorsal second toe. Patient was educated on all signs and symptoms of local and systemic infection and he is instructed to go to the emergency room immediately should he notice any of these. All questions were answered to the patient's satisfaction. He will follow-up in clinic in 1 week to check on progress of ulcer, but was instructed to follow-up sooner if needed.
[2018-07-08 11:35] VITALS: BP 137/82; PULSE 75; RESP 16; TEMP 36.8
--- NOTE | 2018-07-08 13:10 | PCM.WC.PN ---
(1) Ulcer of right foot with fat layer exposed Status: Acute Current Visit: No Code(s): L97.512 - Non-pressure chronic ulcer of other part of right foot with fat layer exposed (2) Chronic ulcer of left foot with fat layer exposed Status: Acute Current Visit: Yes Code(s): L97.522 - Non-pressure chronic ulcer of other part of left foot with fat layer exposed (3) Lower extremity neuropathy Status: Acute Current Visit: No Code(s): G57.90 - Unspecified mononeuropathy of unspecified lower limb (4) Other hammer toe(s) (acquired), right foot Status: Acute Current Visit: No Code(s): M20.41 - Other hammer toe(s) (acquired), right foot (5) Other hammer toe(s) (acquired), left foot Status: Acute Current Visit: No Code(s): M20.42 - Other hammer toe(s) (acquired), left foot (6) PVD (peripheral vascular disease) Status: Acute Current Visit: No Code(s): I73.9 - Peripheral vascular disease, unspecified (7) Delayed wound healing Status: Acute Current Visit: No Code(s): T14.8XXD - Other injury of unspecified body region, subsequent encounter Type of Wound Chief Complaint: Follow-up on pressure ulcers 2 left medial great toe and right second anterior toe History of Wound: 63-year-old white 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 This has been going on for approximately 3 months he thought it would get better the second toe is completely encompassed with erythema not warm to touch. 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 Patient also has a lot of autoimmune disorders and is on medications for that. Progress of Wound: Ulcer healed to right dorsal second toe. Ulcer to left plantar distal forefoot slightly increased in size since last visit. Patient has been having daily dressing changes. Patient denies any purulence or extending redness. Patient denies any feelings of nausea, vomiting, fever, chills. - Physical Exam Vital Signs Temp Pulse Resp BP 98.2 F 75 16 137/82 H 07/08/18 11:35 07/08/18 11:35 07/08/18 11:35 07/08/18 11:35 General: Alert, Oriented x3, Cooperative, No apparent distress Extremities: Capillary Refill Less than 3 Seconds, No Calf Tenderness - Negative Juni and Kaye sign, Diminished Peripheral Pulses - DP and PT pulses faintly palpable bilateral, Edema - Slight lower extremity edema Skin: Ulcer/ Wound - Ulcer healed to right dorsal second toe. Ulcer noted with fat layer exposed to the distal plantar left forefoot. Slight increase in size since last visit. The base is a mixture of adherent slough, fibrin, granular tissue as well as some slight surrounding hyperkeratotic tissue. There continues to be no probing to bone, no tracking, no undermining, no purulence, no extending cellulitis, and no increase in warmth at this time. Wound Measurements and Assessment WC - Nurse 1 - General Ulcer Measurement Start: 06/17/18 11:15 Freq: Status: Active Protocol: Activity Type Activity Date Activity User E-Sign Co-Sign Detail Recorded Client Recorded Date Recorded By Document 07/08/18 11:35 [facility] [id number] 07/08/18 11:43 [facility] 07/08/18 11:35 Wound Center Nurse 1 [Ulcer Assessment] #4 Left Plantar -Combined with other wound No -Current Size (cm) - Length 0.1 -Current Size (cm) - Width 0.3 -Current Size (cm) - Depth 0.2 -Total Square Cm 0.03 -Date of Last Picture (Recall this 07/08/18 field) -Photo Taken Yes -Epithelialization Medium 34-66% -Tunneling No -Undermining/Tunneling No -Circular Undermining No -Exudate Amt Small (1-33%) -Exudate Type Serous -Wound Margin Distinct, Outline Attached -Granulation Amt Small (1-33%) -Granulation Quality Red -Slough/Fibrin Yes -Necrosis Amt Large (67-100%) -Necrotic Tissue Type Adherent Slough -Texture (Talisha-wound Skin Appearance) Callus Scarring -Moisture (Talisha-wound Skin Appearance Dry/Scaly ) -Color (Talisha-wound Skin Appearance) Assessed -Temperature (Talisha-wound Skin No Abnormality Appearance) (Pt Warm) -Tenderness on Palpation (Talisha-wound Yes Skin Appearance) -Ulcer Cleansing Rinsed/ Irrigated with Saline -Foul Odor after Cleansing No -Anesthetic Used 4% Lidocaine Solution #2 RIGHT 2ND TOE -Combined with other wound No -Current Size (cm) - Length 0.1 -Current Size (cm) - Width 0.1 -Current Size (cm) - Depth 0.1 -Total Square Cm 0.01 -Date of Last Picture (Recall this 07/08/18 field) -Photo Taken Yes -Epithelialization Large 67-100% HEATHER - Nurse 2 - General Ulcer CM Notes Start: 06/17/18 11:15 Freq: Status: Active Protocol: Activity Type Activity Date Activity User E-Sign Co-Sign Detail Recorded Client Recorded Date Recorded By Document 07/08/18 11:50 DV [id number] 07/08/18 11:56 DV 07/08/18 11:50 Wound Center Nurse 2 [Procedure/Treatment] #4 Left Plantar -Time 11:51 -Correct Patient Yes -Correct Side, Site, Position Yes -Correct Procedure Yes -Procedure Performed Yes -Type of Procedure Debridement -Clinical Debridement Subcutaneous -Post Debridement Size (cm) - Length 1.0 -Post Debridement Size (cm) - Width 0.8 -Post Debridement Size (cm) - Depth 0.2 -Total Square Cm 0.80 -Wound/Ulcer Outcome Not Healed -Ulcer Cleansing Rinsed/ Irrigated with Saline -Foul Odor after Cleansing No -Bioengineered Tissue No -Bleeding Controlled with Pressure -Treatment Response Procedure Tolerated Well #2 RIGHT 2ND TOE -Time 11:51 -Correct Patient Yes -Correct Side, Site, Position Yes -Procedure Performed No -Post Debridement Size (cm) - Length 0.1 -Post Debridement Size (cm) - Width 0.1 -Post Debridement Size (cm) - Depth 0.1 -Total Square Cm 0.01 -Wound/Ulcer Outcome Healed- Epithelialized [See Physician Procedure note for Specifics] Pain Scale: 0-10 Numeric [Pain] -Is Patient Pain Free? Yes Musculoskeletal: No Tenderness to Palpation of Joints or Extremities, Tenderness - Slight tenderness with manipulation of ulcer site, - - Hammertoe deformities noted to digits 2-5 of the right and left foot. Bilateral hallux malleus deformities. Neurological: Sensory exam intact to light touch and pain Psych/Mental Status: Normal Affect, Appropriate Debridement Note Post-Debridement Measurements/Treatment HEATHER - Nurse 2 - General Ulcer CM Notes Start: 06/17/18 11:15 Freq: Status: Active Protocol: Activity Type Activity Date Activity User E-Sign Co-Sign Detail Recorded Client Recorded Date Recorded By Document 06/17/18 11:56 DV [id number] 06/17/18 11:58 DV Document 06/24/18 12:16 DV [id number] 06/24/18 12:19 DV Document 07/08/18 11:50 DV [id number] 07/08/18 11:56 DV 06/17/18 06/24/18 07/08/18 11:56 12:16 11:50 Wound Center Nurse 2 #4 Left Plantar -Time 11:58 12:17 11:51 -Correct Patient Yes Yes Yes -Correct Side, Site, Position Yes Yes Yes -Correct Procedure Yes Yes Yes -Procedure Performed Yes Yes Yes -Type of Procedure Debridement Debridement Debridement -Clinical Debridement Subcutaneous Subcutaneous Subcutaneous -Post Debridement Size (cm) - Length 0.2 0.2 1.0 -Post Debridement Size (cm) - Width 0.2 0.2 0.8 -Post Debridement Size (cm) - Depth 0.1 0.1 0.2 -Total Square Cm 0.04 0.04 0.80 -Wound/Ulcer Outcome Not Healed Not Healed Not Healed -Ulcer Cleansing Rinsed/ Rinsed/ Rinsed/ Irrigated with Irrigated with Irrigated with Saline Saline Saline -Foul Odor after Cleansing No No No -Bioengineered Tissue No No No -Bleeding Controlled with Pressure Pressure Pressure -Treatment Response Procedure Procedure Procedure Tolerated Well Tolerated Well Tolerated Well #2 RIGHT 2ND TOE -Time 11:56 12:17 11:51 -Correct Patient Yes Yes Yes -Correct Side, Site, Position Yes Yes Yes -Correct Procedure Yes Yes -Procedure Performed Yes Yes No -Type of Procedure Debridement Debridement -Clinical Debridement Subcutaneous Subcutaneous -Post Debridement Size (cm) - Length 0.2 0.1 0.1 -Post Debridement Size (cm) - Width 0.3 0.1 0.1 -Post Debridement Size (cm) - Depth 0.1 0.1 0.1 -Total Square Cm 0.06 0.01 0.01 -Wound/Ulcer Outcome Not Healed Not Healed Healed- Epithelialized -Ulcer Cleansing Rinsed/ Rinsed/ Irrigated with Irrigated with Saline Saline -Foul Odor after Cleansing No -Bioengineered Tissue No -Bleeding Controlled with Pressure Pressure -Treatment Response Procedure Procedure Tolerated Well Tolerated Well Pain Scale: 0-10 Numeric Is Patient Pain Free? Yes Yes Yes Wound debrided: Left distal plantar foot Laterality: Left Type of Debridement: Excisional debridement Anesthesia Used: 4% Lidocaine Solution Depth: in the subcutaneous layer Percentage of wound debrided: 100 Instrument Used: #15 blade Tissue Removed: Adherent slough, fibrin, hyperkeratotic tissue Severity: Fat Layer Exposed Amount of bleeding with debridement: Mild Bleeding Controlled with: Pressure Patient tolerated procedure well Assessment/Plan Active Problems Chronic ulcer of left foot with fat layer exposed (Acute) Assessment: Ulcer of fat layer exposed to right dorsal second toe. Neuropathy left leg. Other comorbidities Plan: Patient was carefully examined and evaluated again today. Ulcer to right dorsal second toe is healed today. Ulcer still noted to the left distal plantar forefoot. Ulcer site was carefully debrided subcutaneously as noted in the clinical panel. Once complete, the site was carefully cleansed and then dressed with Keena followed by dry sterile dressing and Tubigrip for compression. The patient is to change his dressings in this manner daily. The importance of keeping pressure off of the ulcer site was stressed in great detail to the patient today. The importance of proper shoe gear with enough height and width was stressed as well. He was instructed to stay away from tight and constricting boots. He admits to walking without any protection to the left plantar foot again this week at times. I stressed the importance of wearing his AFO that he got from [employer], as this has an offloading pocket in the exact area of his ulcer. He was instructed to keep pressure completely off of the ulcer site. LEAS and venous Doppler studies were ordered and the results were reviewed. Final report will be placed in the patient's chart. We discussed potentially dispensing surgical shoe to this patient to better offload the area to the right dorsal second toe. Patient was educated on all signs and symptoms of local and systemic infection and he is instructed to go to the emergency room immediately should he notice any of these. All questions were answered to the patient's satisfaction. He will follow-up in clinic in 1 week to check on progress of ulcer, but was instructed to follow-up sooner if needed.
--- NOTE | 2018-07-08 13:15 | PN.PCM_ITS ---
(1) Ulcer of right foot with fat layer exposed Status: Acute Current Visit: No Code(s): L97.512 - Non-pressure chronic ulcer of other part of right foot with fat layer exposed (2) Chronic ulcer of left foot with fat layer exposed Status: Acute Current Visit: Yes Code(s): L97.522 - Non-pressure chronic ulcer of other part of left foot with fat layer exposed (3) Lower extremity neuropathy Status: Acute Current Visit: No Code(s): G57.90 - Unspecified mononeuropathy of unspecified lower limb (4) Other hammer toe(s) (acquired), right foot Status: Acute Current Visit: No Code(s): M20.41 - Other hammer toe(s) (acquired), right foot (5) Other hammer toe(s) (acquired), left foot Status: Acute Current Visit: No Code(s): M20.42 - Other hammer toe(s) (acquired), left foot (6) PVD (peripheral vascular disease) Status: Acute Current Visit: No Code(s): I73.9 - Peripheral vascular disease, unspecified (7) Delayed wound healing Status: Acute Current Visit: No Code(s): T14.8XXD - Other injury of unspecified body region, subsequent encounter Type of Wound Chief Complaint: Follow-up on pressure ulcers 2 left medial great toe and right second anterior toe History of Wound: 63-year-old white 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 This has been going on for approximately 3 months he thought it would get better the second toe is completely encompassed with erythema not warm to touch. 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 Patient also has a lot of autoimmune disorders and is on medications for that. Progress of Wound: Ulcer healed to right dorsal second toe. Ulcer to left plantar distal forefoot slightly increased in size since last visit. Patient has been having daily dressing changes. Patient denies any purulence or extending redness. Patient denies any feelings of nausea, vomiting, fever, chills. - Physical Exam Vital Signs Temp Pulse Resp BP 98.2 F 75 16 137/82 H 07/08/18 11:35 07/08/18 11:35 07/08/18 11:35 07/08/18 11:35 General: Alert, Oriented x3, Cooperative, No apparent distress Extremities: Capillary Refill Less than 3 Seconds, No Calf Tenderness - Negative Juni and Kaye sign, Diminished Peripheral Pulses - DP and PT pulses faintly palpable bilateral, Edema - Slight lower extremity edema Skin: Ulcer/ Wound - Ulcer healed to right dorsal second toe. Ulcer noted with fat layer exposed to the distal plantar left forefoot. Slight increase in size since last visit. The base is a mixture of adherent slough, fibrin, granular tissue as well as some slight surrounding hyperkeratotic tissue. There continu es to be no probing to bone, no tracking, no undermining, no purulence, no extending cellulitis, and no increase in warmth at this time. Wound Measurements and Assessment WC - Nurse 1 - General Ulcer Measurement Start: 06/17/18 11:15 Freq: Status: Active Protocol: Activity Type Activity Date Activity User E-Sign Co-Sign Detail Recorded Client Recorded Date Recorded By Document 07/08/18 11:35 [facility] [id number] 07/08/18 11:43 [facility] 07/08/18 11:35 Wound Center Nurse 1 [Ulcer Assessment] #4 Left Plantar -Combined with other wound No -Current Size (cm) - Length 0.1 -Current Size (cm) - Width 0.3 -Current Size (cm) - Depth 0.2 -Total Square Cm 0.03 -Date of Last Picture (Recall this 07/08/18 field) -Photo Taken Yes -Epithelialization Medium 34-66% -Tunneling No -Undermining/Tunneling No -Circular Undermining No -Exudate Amt Small (1-33%) -Exudate Type Serous -Wound Margin Distinct, Outline Attached -Granulation Amt Small (1-33%) -Granulation Quality Red -Slough/Fibrin Yes -Necrosis Amt Large (67-100%) -Necrotic Tissue Type Adherent Slough -Texture (Talisha-wound Skin Appearance) Callus Scarring -Moisture (Talisha-wound Skin Appearance Dry/Scaly ) -Color (Talisha-wound Skin Appearance) Assessed -Temperature (Talisha-wound Skin No Abnormality Appearance) (Pt Warm) -Tenderness on Palpation (Talisha-wound Yes Skin Appearance) -Ulcer Cleansing Rinsed/ Irrigated with Saline -Foul Odor after Cleansing No -Anesthetic Used 4% Lidocaine Solution #2 RIGHT 2ND TOE -Combined with other wound No -Current Size (cm) - Length 0.1 -Current Size (cm) - Width 0.1 -Current Size (cm) - Depth 0.1 -Total Square Cm 0.01 -Date of Last Picture (Recall this 07/08/18 field) -Photo Taken Yes -Epithelialization Large 67-100% HEATHER - Nurse 2 - General Ulcer CM Notes Start: 06/17/18 11:15 Freq: Status: Active Protocol: Activity Type Activity Date Activity User E-Sign Co-Sign Detail Recorded Client Recorded Date Recorded By Document 07/08/18 11:50 DV [id number] 07/08/18 11:56 DV 07/08/18 11:50 Wound Center Nurse 2 [Procedure/Treatment] #4 Left Plantar -Time 11:51 -Correct Patient Yes -Correct Side, Site, Position Yes -Correct Procedure Yes -Procedure Performed Yes -Type of Procedure Debridement -Clinical Debridement Subcutaneous -Post Debridement Size (cm) - Length 1.0 -Post Debridement Size (cm) - Width 0.8 -Post Debridement Size (cm) - Depth 0.2 -Total Square Cm 0.80 -Wound/Ulcer Outcome Not Healed -Ulcer Cleansing Rinsed/ Irrigated with Saline -Foul Odor after Cleansing No -Bioengineered Tissue No -Bleeding Controlled with Pressure -Treatment Response Procedure Tolerated Well #2 RIGHT 2ND TOE -Time 11:51 -Correct Patient Yes -Correct Side, Site, Position Yes -Procedure Performed No -Post Debridement Size (cm) - Length 0.1 -Post Debridement Size (cm) - Width 0.1 -Post Debridement Size (cm) - Depth 0.1 -Total Square Cm 0.01 -Wound/Ulcer Outcome Healed- Epithelialized [See Physician Procedure note for Specifics] Pain Scale: 0-10 Numeric [Pain] -Is Patient Pain Free? Yes Musculoskeletal: No Tenderness to Palpation of Joints or Extremities, Tenderness - Slight tenderness with manipulation of ulcer site, - - Hammertoe deformities noted to digits 2-5 of the right and left foot. Bilateral hallux malleus deformities. Neurological: Sensory exam intact to light touch and pain Psych/Mental Status: Normal Affect, Appropriate Debridement Note Post-Debridement Measurements/Treatment HEATHER - Nurse 2 - General Ulcer CM Notes Start: 06/17/18 11:15 Freq: Status: Active Protocol: Activity Type Activity Date Activity User E-Sign Co-Sign Detail Recorded Client Recorded Date Recorded By Document 06/17/18 11:56 DV [id number] 06/17/18 11:58 DV Document 06/24/18 12:16 DV [id number] 06/24/18 12:19 DV Document 07/08/18 11:50 DV [id number] 07/08/18 11:56 DV 06/17/18 06/24/18 07/08/18 11:56 12:16 11:50 Wound Center Nurse 2 #4 Left Plantar -Time 11:58 12:17 11:51 -Correct Patient Yes Yes Yes -Correct Side, Site, Position Yes Yes Yes -Correct Procedure Yes Yes Yes -Procedure Performed Yes Yes Yes -Type of Procedure Debridement Debridement Debridement -Clinical Debridement Subcutaneous Subcutaneous Subcutaneous -Post Debridement Size (cm) - Length 0.2 0.2 1.0 -Post Debridement Size (cm) - Width 0.2 0.2 0.8 -Post Debridement Size (cm) - Depth 0.1 0.1 0.2 -Total Square Cm 0.04 0.04 0.80 -Wound/Ulcer Outcome Not Healed Not Healed Not Healed -Ulcer Cleansing Rinsed/ Rinsed/ Rinsed/ Irrigated with Irrigated with Irrigated with Saline Saline Saline -Foul Odor after Cleansing No No No -Bioengineered Tissue No No No -Bleeding Controlled with Pressure Pressure Pressure -Treatment Response Procedure Procedure Procedure Tolerated Well Tolerated Well Tolerated Well #2 RIGHT 2ND TOE -Time 11:56 12:17 11:51 -Correct Patient Yes Yes Yes -Correct Side, Site, Position Yes Yes Yes -Correct Procedure Yes Yes -Procedure Performed Yes Yes No -Type of Procedure Debridement Debridement -Clinical Debridement Subcutaneous Subcutaneous -Post Debridement Size (cm) - Length 0.2 0.1 0.1 -Post Debridement Size (cm) - Width 0.3 0.1 0.1 -Post Debridement Size (cm) - Depth 0.1 0.1 0.1 -Total Square Cm 0.06 0.01 0.01 -Wound/Ulcer Outcome Not Healed Not Healed Healed- Epithelialized -Ulcer Cleansing Rinsed/ Rinsed/ Irrigated with Irrigated with Saline Saline -Foul Odor after Cleansing No -Bioengineered Tissue No -Bleeding Controlled with Pressure Pressure -Treatment Response Procedure Procedure Tolerated Well Tolerated Well Pain Scale: 0-10 Numeric Is Patient Pain Free? Yes Yes Yes Wound debrided: Left distal plantar foot Laterality: Left Type of Debridement: Excisional debridement Anesthesia Used: 4% Lidocaine Solution Depth: in the subcutaneous layer Percentage of wound debrided: 100 Instrument Used: #15 blade Tissue Removed: Adherent slough, fibrin, hyperkeratotic tissue Severity: Fat Layer Exposed Amount of bleeding with debridement: Mild Bleeding Controlled with: Pressure Patient tolerated procedure well Assessment/Plan Active Problems Chronic ulcer of left foot with fat layer exposed (Acute) Assessment: Ulcer of fat layer exposed to right dorsal second toe. Neuropathy left leg. Other comorbidities Plan: Patient was carefully examined and evaluated again today. Ulcer to right dorsal second toe is healed today. Ulcer still noted to the left distal plantar forefoot. Ulcer site was carefully debrided subcutaneously as noted in the clinical panel. Once complete, the site was carefully cleansed and then dressed with Keena followed by dry sterile dressing and Tubigrip for compression. The patient is to change his dressings in this manner daily. The importance of keeping pressure off of the ulcer site was stressed in great detail to the patient today. The importance of proper shoe gear with enough height and width was stressed as well. He was instructed to stay away from tight and constricting boots. He admits to walking without any protection to the left plantar foot again this week at times. I stressed the importance of wearing his AFO that he got from [employer], as this has an offloading pocket in the exact area of his ulcer. He was instructed to keep pressure completely off of the ulcer site. LEAS and venous Doppler studies were ordered and the results were reviewed. Final report will be placed in the patient's chart. We discussed potentially dispensing surgical shoe to this patient to better offload the area to the right dorsal second toe. Patient was educated on all signs and symptoms of local and systemic infection and he is instructed to go to the emergency room immediately should he notice any of these. All questions were answered to the patient's satisfaction. He will follow-up in clinic in 1 week to check on progress of ulcer, but was instructed to follow-up sooner if needed.
== END 2018-07-14 23:59 ==
LOC: WC 11:30
PROVIDERS: Family Provider Internal Medicine; PCP Internal Medicine; Referring Provider Podiatrist; Visit Provider Podiatrist
DX: I73.9 Peripheral vascular disease, unspecified (principal); L97.512 Non-pressure chronic ulcer of other part of right foot with fat layer exposed; L97.522 Non-pressure chronic ulcer of other part of left foot with fat layer exposed; G57.90 Unspecified mononeuropathy of unspecified lower limb; M20.41 Other hammer toe(s) (acquired), right foot; M20.42 Other hammer toe(s) (acquired), left foot; R60.0 Localized edema
CPT/HCPCS: 11042

== ENCOUNTER 2018-08-12 11:45 | Outpatient (RCR) | payer MEDICARE, SELFPAY ==
[2018-07-15 01:18] VITALS: BP 137/82; PULSE 75; RESP 16; TEMP 36.8
[2018-07-22 11:59] VITALS: BP 130/72; PULSE 75; RESP 18; TEMP 36.7
--- NOTE | 2018-07-22 14:18 | PN.PCM_ITS ---
(1) Ulcer of right foot with fat layer exposed Status: Acute Current Visit: No Code(s): L97.512 - Non-pressure chronic ulcer of other part of right foot with fat layer exposed (2) Other hammer toe(s) (acquired), right foot Status: Acute Current Visit: No Code(s): M20.41 - Other hammer toe(s) (acquired), right foot (3) Other hammer toe(s) (acquired), left foot Status: Acute Current Visit: No Code(s): M20.42 - Other hammer toe(s) (acquired), left foot (4) PVD (peripheral vascular disease) Status: Acute Current Visit: No Code(s): I73.9 - Peripheral vascular disease, unspecified (5) Delayed wound healing Status: Acute Current Visit: No Code(s): T14.8XXD - Other injury of unspecified body region, subsequent encounter (6) Chronic ulcer of left foot with fat layer exposed Status: Acute Current Visit: No Code(s): L97.522 - Non-pressure chronic ulcer of other part of left foot with fat layer exposed Type of Wound Chief Complaint: Follow-up on pressure ulcers 2 left medial great toe and right second anterior toe History of Wound: 63-year-old white 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 This has been going on for approximately 3 months he thought it would get better the second toe is completely encompassed with erythema not warm to touch. 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 Patient also has a lot of autoimmune disorders and is on medications for that. Progress of Wound: Ulcer healed to right dorsal second toe slightly opened again after patient missed his appointment last week. Ulcer to left plantar distal forefoot stable since last week. Patient has been having daily dressing changes. Patient denies any purulence or extending redness. Patient denies any feelings of nausea, vomiting, fever, chills. - Physical Exam Vital Signs Temp Pulse Resp BP 98.0 F 75 18 130/72 H 07/22/18 11:59 07/22/18 11:59 07/22/18 11:59 07/22/18 11:59 General: Alert, Oriented x3, Cooperative, No apparent distress Extremities: Capillary Refill Less than 3 Seconds, No Calf Tenderness - Negative Juni and Kaye sign, Diminished Peripheral Pulses - DP and PT pulses faintly palpable bilateral, Edema - Slight lower extremity edema Skin: Ulcer/ Wound - Ulcer noted to right dorsal second toe and left distal plantar forefoot with fat layer exposed. The bases of the sites are mixture of adherent slough, fibrin, granular tissue as well as some slight surrounding hyperkeratotic tissue. There continues to be no probing to bone, no tracking, no undermining, no purulence, no extending cellulitis, and no increase in warmth at this time. Wound Measurements and Assessment WC - Nurse 1 - General Ulcer Measurement Start: 07/22/18 11:59 Freq: Status: Active Protocol: Activity Type Activity Date Activity User E-Sign Co-Sign Detail Recorded Client Recorded Date Recorded By Document 07/22/18 11:59 MO [id number] 07/22/18 12:13 MO 07/22/18 11:59 Wound Center Nurse 1 [Ulcer Assessment] #4 Left Plantar -Combined with other wound No -Current Size (cm) - Length 1.0 -Current Size (cm) - Width 1.0 -Current Size (cm) - Depth 0.1 -Total Square Cm 1.00 -Photo Taken Yes -Epithelialization None Present -Tunneling No -Undermining/Tunneling No -Circular Undermining No -Classification - Thickness Partial Thickness -Exudate Amt None Present (0 %) -Wound Margin Distinct, Outline Attached -Granulation Amt None Present (0 %) -Granulation Quality N/A -Slough/Fibrin Yes -Necrosis Amt None Present (0 %) -Necrotic Tissue Type Adherent Slough -Structure Exposed None/Limited to Skin Breakdown -Texture (Talisha-wound Skin Appearance) Callus -Moisture (Talisha-wound Skin Appearance No Abnormality ) -Color (Talisha-wound Skin Appearance) No Abnormality -Temperature (Talisha-wound Skin No Abnormality Appearance) (Pt Warm) -Tenderness on Palpation (Talisha-wound No Skin Appearance) -Ulcer Cleansing Rinsed/ Irrigated with Saline -Foul Odor after Cleansing No -Anesthetic Used 4% Lidocaine Solution #2 RIGHT 2ND TOE -Combined with other wound No -Current Size (cm) - Length 0.1 -Current Size (cm) - Width 0.1 -Current Size (cm) - Depth 0.1 -Total Square Cm 0.01 -Date of Last Picture (Recall this 07/22/18 field) -Photo Taken Yes -Epithelialization None Present -Tunneling No -Undermining/Tunneling No -Circular Undermining No -Classification - Thickness Partial Thickness -Exudate Amt Small (1-33%) -Exudate Type Serosanguineous -Wound Margin Distinct, Outline Attached -Granulation Amt None Present (0 %) -Granulation Quality N/A -Slough/Fibrin Yes -Necrosis Amt None Present (0 %) -Necrotic Tissue Type Adherent Slough -Structure Exposed None/Limited to Skin Breakdown -Texture (Talisha-wound Skin Appearance) No Abnormality -Moisture (Talisha-wound Skin Appearance No Abnormality ) -Color (Talisha-wound Skin Appearance) No Abnormality -Temperature (Talisha-wound Skin No Abnormality Appearance) (Pt Warm) -Tenderness on Palpation (Talisha-wound No Skin Appearance) -Ulcer Cleansing Rinsed/ Irrigated with Saline -Foul Odor after Cleansing No -Anesthetic Used 4% Lidocaine Solution WC - Nurse 2 - General Ulcer CM Notes Start: 07/22/18 11:59 Freq: Status: Active Protocol: Activity Type Activity Date Activity User E-Sign Co-Sign Detail Recorded Client Recorded Date Recorded By Document 07/22/18 12:19 MO [id number] 07/22/18 12:22 MO 07/22/18 12:19 Wound Center Nurse 2 [Procedure/Treatment] #4 Left Plantar -Time 12:19 -Correct Patient Yes -Correct Side, Site, Position Yes -Correct Procedure Yes -Procedure Performed Yes -Type of Procedure Debridement -Clinical Debridement Subcutaneous -Post Debridement Size (cm) - Length 1.8 -Post Debridement Size (cm) - Width 1.0 -Post Debridement Size (cm) - Depth 0.2 -Total Square Cm 1.80 -Wound/Ulcer Outcome Not Healed -Ulcer Cleansing Rinsed/ Irrigated with Saline -Foul Odor after Cleansing No -Bleeding Controlled with Pressure -Treatment Response Procedure Tolerated Well #2 RIGHT 2ND TOE -Time 12:19 -Correct Patient Yes -Correct Side, Site, Position Yes -Correct Procedure Yes -Procedure Performed Yes -Type of Procedure Debridement -Clinical Debridement Subcutaneous -Post Debridement Size (cm) - Length 0.3 -Post Debridement Size (cm) - Width 0.3 -Post Debridement Size (cm) - Depth 0.1 -Total Square Cm 0.09 -Wound/Ulcer Outcome Not Healed -Ulcer Cleansing Rinsed/ Irrigated with Saline -Foul Odor after Cleansing No -Bioengineered Tissue No -Bleeding Controlled with Pressure -Treatment Response Procedure Tolerated Well [See Physician Procedure note for Specifics] Pain Scale: 0-10 Numeric [Pain] -Is Patient Pain Free? No Musculoskeletal: No Tenderness to Palpation of Joints or Extremities, Tenderness - Slight tenderness with manipulation of ulcer sites, - - Hammertoe deformities of digits 2?5 of the right and left foot. Bilateral hallux malleus deformities. Neurological: Sensory exam intact to light touch and pain Psych/Mental Status: Normal Affect, Appropriate Debridement Note Post-Debridement Measurements/Treatment WC - Nurse 2 - General Ulcer CM Notes Start: 07/22/18 11:59 Freq: Status: Active Protocol: Activity Type Activity Date Activity User E-Sign Co-Sign Detail Recorded Client Recorded Date Recorded By Document 07/22/18 12:19 MO [id number] 07/22/18 12:22 MO 07/22/18 12:19 Wound Center Nurse 2 #4 Left Plantar -Time 12:19 -Correct Patient Yes -Correct Side, Site, Position Yes -Correct Procedure Yes -Procedure Performed Yes -Type of Procedure Debridement -Clinical Debridement Subcutaneous -Post Debridement Size (cm) - Length 1.8 -Post Debridement Size (cm) - Width 1.0 -Post Debridement Size (cm) - Depth 0.2 -Total Square Cm 1.80 -Wound/Ulcer Outcome Not Healed -Ulcer Cleansing Rinsed/ Irrigated with Saline -Foul Odor after Cleansing No -Bleeding Controlled with Pressure -Treatment Response Procedure Tolerated Well #2 RIGHT 2ND TOE -Time 12:19 -Correct Patient Yes -Correct Side, Site, Position Yes -Correct Procedure Yes -Procedure Performed Yes -Type of Procedure Debridement -Clinical Debridement Subcutaneous -Post Debridement Size (cm) - Length 0.3 -Post Debridement Size (cm) - Width 0.3 -Post Debridement Size (cm) - Depth 0.1 -Total Square Cm 0.09 -Wound/Ulcer Outcome Not Healed -Ulcer Cleansing Rinsed/ Irrigated with Saline -Foul Odor after Cleansing No -Bioengineered Tissue No -Bleeding Controlled with Pressure -Treatment Response Procedure Tolerated Well Pain Scale: 0-10 Numeric Is Patient Pain Free? No Wound debrided: Left distal plantar forefoot Laterality: Left Type of Debridement: Excisional debridement Anesthesia Used: 4% Lidocaine Solution Depth: in the subcutaneous layer Percentage of wound debrided: 100 Instrument Used: #15 blade Tissue Removed: Adherent slough, fibrin, hyperkeratotic tissue Severity: Fat Layer Exposed Amount of bleeding with debridement: Mild Bleeding Controlled with: Pressure Patient tolerated procedure well - Additional Wound Wound debrided: Right dorsal second toe Laterality: Right Type of Debridement: Excisional debridement Anesthesia Used: 4% Lidocaine Solution Depth: in the subcutaneous layer Percentage of wound debrided: 100 Instrument Used: #15 blade Tissue Removed: Adherent slough, fibrin, hyperkeratotic tissue Severity: Fat Layer Exposed Amount of bleeding with debridement: Mild Bleeding Controlled with: Pressure Patient tolerated procedure: Patient tolerated procedure well Assessment/Plan Assessment: Ulcer of fat layer exposed to right dorsal second toe. Neuropathy left leg. Other comorbidities Plan: Patient was carefully examined and evaluated again today. Patient missed his wound center appointment last week. Ulcer to right dorsal second toe is reopened today. Ulcer still noted to the left distal plantar forefoot. Ulcer sites were carefully debrided subcutaneously as noted in the clinical panel. Once complete, the sites were carefully cleansed and then dressed with Keena followed by dry sterile dressing and Tubigrip for compression. The patient is to change his dressings in this manner daily. The importance of keeping pressure off of the ulcer site was stressed in great detail to the patient today. The importance of proper shoe gear with enough height and width was stressed as well. He was instructed to stay away from tight and constricting boots. He admits to walking without any protection to the left plantar foot again this week at times. I stressed the importance of wearing his AFO that he got from [employer], as this has an offloading pocket in the exact area of his ulcer. We discussed the possibility of having alterations made to this brace. He was instructed to keep pressure completely off of the ulcer site. LEAS and venous Doppler studies were ordered and the results were reviewed. Final report will be placed in the patient's chart. We discussed potentially dispensing surgical shoe to this patient to better offload the area to the right dorsal second toe. Patient was educated on all signs and symptoms of local and systemic infection and he is instructed to go to the emergency room immediately should he notice any of these. All questions were answered to the patient's satisfaction. He will follow-up in clinic in 1 week to check on progress of ulcer, but was instructed to follow-up sooner if needed.
[2018-08-12 12:15] VITALS: BP 141/88; PULSE 77; RESP 18; TEMP 37
--- NOTE | 2018-08-12 14:19 | PCM.WC.PN ---
(1) Chronic ulcer of left foot with fat layer exposed Status: Acute Current Visit: No Code(s): L97.522 - Non-pressure chronic ulcer of other part of left foot with fat layer exposed (2) Ulcer of right foot with fat layer exposed Status: Acute Current Visit: No Code(s): L97.512 - Non-pressure chronic ulcer of other part of right foot with fat layer exposed (3) Other hammer toe(s) (acquired), right foot Status: Acute Current Visit: No Code(s): M20.41 - Other hammer toe(s) (acquired), right foot (4) Other hammer toe(s) (acquired), left foot Status: Acute Current Visit: No Code(s): M20.42 - Other hammer toe(s) (acquired), left foot (5) PVD (peripheral vascular disease) Status: Acute Current Visit: No Code(s): I73.9 - Peripheral vascular disease, unspecified (6) Delayed wound healing Status: Acute Current Visit: No Code(s): T14.8XXD - Other injury of unspecified body region, subsequent encounter Type of Wound Chief Complaint: Follow-up on pressure ulcers 2 left medial great toe and right second anterior toe History of Wound: 63-year-old white 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 This has been going on for approximately 3 months he thought it would get better the second toe is completely encompassed with erythema not warm to touch. 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 Patient also has a lot of autoimmune disorders and is on medications for that. Progress of Wound: Ulcer healed to right dorsal second toe. Ulcer to left plantar distal forefoot slightly improved. Patient has been having daily dressing changes. Patient denies any purulence or extending redness. Patient denies any feelings of nausea, vomiting, fever, chills. - Physical Exam Vital Signs Temp Pulse Resp BP 98.6 F 77 18 141/88 H 08/12/18 12:15 08/12/18 12:15 08/12/18 12:15 08/12/18 12:15 General: Alert, Oriented x3, Cooperative, No apparent distress Extremities: Capillary Refill Less than 3 Seconds, No Calf Tenderness - Negative Jnui and Kaye sign, Diminished Peripheral Pulses - DP and PT pulses faintly palpable bilateral, Edema - Slight lower extremity edema Skin: Ulcer/ Wound - Ulcer noted to right dorsal second toe is healed. Ulcer also noted to left distal plantar forefoot with fat layer exposed. The base of the site is mixture of adherent slough, fibrin, granular tissue as well as some slight surrounding hyperkeratotic tissue. There continues to be no probing to bone, no tracking, no undermining, no purulence, no extending cellulitis, and no increase in warmth at this time. Wound Measurements and Assessment WC - Nurse 1 - General Ulcer Measurement Start: 07/22/18 11:59 Freq: Status: Active Protocol: Activity Type Activity Date Activity User E-Sign Co-Sign Detail Recorded Client Recorded Date Recorded By Document 08/12/18 12:15 RB [id number] 08/12/18 12:27 RB 08/12/18 12:15 Wound Center Nurse 1 [Ulcer Assessment] #4 Left Plantar -Combined with other wound No -Current Size (cm) - Length 0.9 -Current Size (cm) - Width 0.1 -Current Size (cm) - Depth 0.1 -Total Square Cm 0.09 -Date of Last Picture (Recall this 08/12/18 field) -Photo Taken Yes -Epithelialization None Present -Tunneling No -Undermining/Tunneling No -Circular Undermining No -Exudate Amt Small (1-33%) -Exudate Type Serous -Wound Margin Thickened -Granulation Amt Small (1-33%) -Granulation Quality Red -Slough/Fibrin Yes -Necrosis Amt Large (67-100%) -Necrotic Tissue Type Adherent Slough -Texture (Talisha-wound Skin Appearance) Callus Scarring -Moisture (Talisha-wound Skin Appearance Dry/Scaly ) -Color (Talisha-wound Skin Appearance) Assessed -Temperature (Talisha-wound Skin No Abnormality Appearance) (Pt Warm) -Tenderness on Palpation (Talisha-wound No Skin Appearance) -Ulcer Cleansing Rinsed/ Irrigated with Saline -Foul Odor after Cleansing No -Anesthetic Used 5% Lidocaine Gel #2 RIGHT 2ND TOE -Combined with other wound No -Current Size (cm) - Length 0.1 -Current Size (cm) - Width 0.1 -Current Size (cm) - Depth 0.1 -Total Square Cm 0.01 -Date of Last Picture (Recall this 08/12/18 field) -Photo Taken Yes -Epithelialization None Present -Tunneling No -Undermining/Tunneling No -Circular Undermining No -Exudate Amt None Present (0 %) -Granulation Amt None Present (0 %) -Slough/Fibrin Yes -Necrosis Amt Large (67-100%) -Necrotic Tissue Type Adherent Slough -Texture (Talisha-wound Skin Appearance) Callus Scarring -Moisture (Talisha-wound Skin Appearance Dry/Scaly ) -Color (Talisha-wound Skin Appearance) Assessed -Temperature (Talisha-wound Skin No Abnormality Appearance) (Pt Warm) -Tenderness on Palpation (Talisha-wound No Skin Appearance) -Ulcer Cleansing Rinsed/ Irrigated with Saline -Foul Odor after Cleansing No -Anesthetic Used 5% Lidocaine Gel WC - Nurse 2 - General Ulcer CM Notes Start: 07/22/18 11:59 Freq: Status: Active Protocol: Activity Type Activity Date Activity User E-Sign Co-Sign Detail Recorded Client Recorded Date Recorded By Document 08/12/18 12:35 DV [id number] 08/12/18 12:41 DV 08/12/18 12:35 Wound Center Nurse 2 [Procedure/Treatment] #4 Left Plantar -Time 12:37 -Correct Patient Yes -Correct Side, Site, Position Yes -Correct Procedure Yes -Procedure Performed Yes -Type of Procedure Debridement -Clinical Debridement Subcutaneous -Post Debridement Size (cm) - Length 0.4 -Post Debridement Size (cm) - Width 0.7 -Post Debridement Size (cm) - Depth 0.2 -Total Square Cm 0.28 -Wound/Ulcer Outcome Not Healed -Ulcer Cleansing Rinsed/ Irrigated with Saline -Foul Odor after Cleansing No -Bioengineered Tissue No -Bleeding Controlled with Pressure -Offloading No -Treatment Response Procedure Tolerated Well #2 RIGHT 2ND TOE -Time 12:35 -Correct Patient Yes -Correct Side, Site, Position Yes -Procedure Performed No -Post Debridement Size (cm) - Length 0 -Post Debridement Size (cm) - Width 0 -Post Debridement Size (cm) - Depth 0 -Total Square Cm 0 -Wound/Ulcer Outcome Healed- Epithelialized [See Physician Procedure note for Specifics] Pain Scale: 0-10 Numeric [Pain] -Is Patient Pain Free? Yes Musculoskeletal: No Tenderness to Palpation of Joints or Extremities, Tenderness - Slight tenderness with an ablation of ulcer site, - - Hammertoe deformities of digits 2?5 of the right and left foot. Bilateral hallux malleus deformities. Neurological: Sensory exam intact to light touch and pain Psych/Mental Status: Normal Affect, Appropriate Debridement Note Post-Debridement Measurements/Treatment WC - Nurse 2 - General Ulcer CM Notes Start: 07/22/18 11:59 Freq: Status: Active Protocol: Activity Type Activity Date Activity User E-Sign Co-Sign Detail Recorded Client Recorded Date Recorded By Document 07/22/18 12:19 JS [id number] 07/22/18 12:22 JS Document 08/12/18 12:35 DV [id number] 08/12/18 12:41 DV 07/22/18 08/12/18 12:19 12:35 Wound Center Nurse 2 #4 Left Plantar -Time 12:19 12:37 -Correct Patient Yes Yes -Correct Side, Site, Position Yes Yes -Correct Procedure Yes Yes -Procedure Performed Yes Yes -Type of Procedure Debridement Debridement -Clinical Debridement Subcutaneous Subcutaneous -Post Debridement Size (cm) - Length 1.8 0.4 -Post Debridement Size (cm) - Width 1.0 0.7 -Post Debridement Size (cm) - Depth 0.2 0.2 -Total Square Cm 1.80 0.28 -Wound/Ulcer Outcome Not Healed Not Healed -Ulcer Cleansing Rinsed/ Rinsed/ Irrigated with Irrigated with Saline Saline -Foul Odor after Cleansing No No -Bioengineered Tissue No -Bleeding Controlled with Pressure Pressure -Offloading No -Treatment Response Procedure Procedure Tolerated Well Tolerated Well #2 RIGHT 2ND TOE -Time 12:19 12:35 -Correct Patient Yes Yes -Correct Side, Site, Position Yes Yes -Correct Procedure Yes -Procedure Performed Yes No -Type of Procedure Debridement -Clinical Debridement Subcutaneous -Post Debridement Size (cm) - Length 0.3 0 -Post Debridement Size (cm) - Width 0.3 0 -Post Debridement Size (cm) - Depth 0.1 0 -Total Square Cm 0.09 0 -Wound/Ulcer Outcome Not Healed Healed- Epithelialized -Ulcer Cleansing Rinsed/ Irrigated with Saline -Foul Odor after Cleansing No -Bioengineered Tissue No -Bleeding Controlled with Pressure -Treatment Response Procedure Tolerated Well Pain Scale: 0-10 Numeric Is Patient Pain Free? No Yes Wound debrided: Left distal plantar forefoot Laterality: Left Type of Debridement: Excisional debridement Anesthesia Used: 4% Lidocaine Solution Depth: in the subcutaneous layer Percentage of wound debrided: 100 Instrument Used: #15 blade Tissue Removed: Adherent slough, fibrin, hyperkeratotic tissue Severity: Fat Layer Exposed Amount of bleeding with debridement: Mild Bleeding Controlled with: Pressure Patient tolerated procedure well Assessment/Plan Assessment: Ulcer of fat layer exposed to right dorsal second toe. Neuropathy left leg. Other comorbidities Plan: Patient was carefully examined and evaluated again today. Ulcer to right dorsal second toe is healed today again. Ulcer still noted to the left distal plantar forefoot. Ulcer site was carefully debrided subcutaneously as noted in the clinical panel. Once complete, the site was carefully cleansed and then dressed with Keena followed by dry sterile dressing and Tubigrip for compression. The patient is to change his dressings in this manner daily. The importance of keeping pressure off of the ulcer site was stressed in great detail to the patient today. The importance of proper shoe gear with enough height and width was stressed as well. He was instructed to stay away from tight and constricting boots. He admits to walking without any protection to the left plantar foot again this week at times. I stressed the importance of wearing his AFO that he got from [employer], as this has an offloading pocket in the exact area of his ulcer. We discussed the possibility of having alterations made to this brace. He was instructed to keep pressure completely off of the ulcer site. LEAS and venous Doppler studies were ordered and the results were reviewed. Final report will be placed in the patient's chart. Patient was educated on all signs and symptoms of local and systemic infection and he is instructed to go to the emergency room immediately should he notice any of these. All questions were answered to the patient's satisfaction. He will follow-up in clinic in 1 week to check on progress of ulcer, but was instructed to follow-up sooner if needed.
== END 2018-08-13 23:59 ==
LOC: WC 11:45
PROVIDERS: Family Provider Internal Medicine; PCP Internal Medicine; Referring Provider Podiatrist; Visit Provider Podiatrist
DX: I73.9 Peripheral vascular disease, unspecified (principal); L97.512 Non-pressure chronic ulcer of other part of right foot with fat layer exposed; L97.522 Non-pressure chronic ulcer of other part of left foot with fat layer exposed; M20.42 Other hammer toe(s) (acquired), left foot; M20.41 Other hammer toe(s) (acquired), right foot; R60.0 Localized edema
CPT/HCPCS: 11042

== ENCOUNTER 2018-09-09 14:00 | Outpatient (RCR) | payer MEDICARE, SELFPAY ==
[2018-08-14 01:07] VITALS: BP 141/88; PULSE 77; RESP 18; TEMP 37
[2018-08-19 10:13] VITALS: BP 160/92; PULSE 75; RESP 16; TEMP 36.7; BMI 39.9
--- NOTE | 2018-08-19 14:08 | PN.PCM_ITS ---
(1) Chronic ulcer of left foot with fat layer exposed Status: Acute Current Visit: No Code(s): L97.522 - Non-pressure chronic ulcer of other part of left foot with fat layer exposed (2) Other hammer toe(s) (acquired), right foot Status: Acute Current Visit: No Code(s): M20.41 - Other hammer toe(s) (acquired), right foot (3) Other hammer toe(s) (acquired), left foot Status: Acute Current Visit: No Code(s): M20.42 - Other hammer toe(s) (acquired), left foot (4) PVD (peripheral vascular disease) Status: Acute Current Visit: No Code(s): I73.9 - Peripheral vascular disease, unspecified (5) Delayed wound healing Status: Acute Current Visit: No Code(s): T14.8XXD - Other injury of unspecified body region, subsequent encounter Type of Wound Chief Complaint: Follow-up on pressure ulcers 2 left medial great toe and right second anterior toe History of Wound: 63-year-old white 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 This has been going on for approximately 3 months he thought it would get better the second toe is completely encompassed with erythema not warm to touch. 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 Patient also has a lot of autoimmune disorders and is on medications for that. Progress of Wound: Ulcer to left plantar distal forefoot increased in size this week. Patient has been having daily dressing changes. Patient denies any purulence or extending redness. Patient denies any feelings of nausea, vomiting, fever, chills. - Physical Exam Vital Signs Temp Pulse Resp BP 98.0 F 75 16 160/92 H 08/19/18 10:13 08/19/18 10:13 08/19/18 10:13 08/19/18 10:13 General: Alert, Oriented x3, Cooperative, No apparent distress Extremities: Capillary Refill Less than 3 Seconds, No Calf Tenderness - Negative Juni and Kaye sign, Diminished Peripheral Pulses - DP and PT pulses faintly palpable bilateral, Edema - Slight lower extremity edema Skin: Ulcer/ Wound - Ulcer to left distal plantar forefoot with fat layer expo sed. Slight increase in size noted this week. The base is a mixture of adherent slough, fibrin, granular tissue, as well as some surrounding hyperkeratotic tissue. There continues to be no probing to bone, no tracking, no undermining, no purulence, no extending or surrounding cellulitis, no increase in warmth to the ulcer site. Wound Measurements and Assessment - Nurse 1 - General Ulcer Measurement Start: 08/19/18 10:13 Freq: Status: Active Protocol: Activity Type Activity Date Activity User E-Sign Co-Sign Detail Recorded Client Recorded Date Recorded By Document 08/19/18 10:13 [id number] 08/19/18 10:18 CS 08/19/18 10:13 Wound Center Nurse 1 [Ulcer Assessment] #4 Left Plantar -Combined with other wound No -Current Size (cm) - Length 0.1 -Current Size (cm) - Width 0.1 -Current Size (cm) - Depth 0.3 -Total Square Cm 0.01 -Photo Taken No -Epithelialization None Present -Tunneling No -Undermining/Tunneling No -Circular Undermining No -Exudate Amt Small (1-33%) -Exudate Type Purulent -Wound Margin Distinct, Outline Attached -Granulation Amt None Present (0 %) -Granulation Quality N/A -Slough/Fibrin No -Necrotic Tissue Type Eschar -Texture (Talisha-wound Skin Appearance) Callus -Moisture (Talisha-wound Skin Appearance No Abnormality ) Assessed -Color (Talisha-wound Skin Appearance) No Abnormality Assessed -Temperature (Talisha-wound Skin No Abnormality Appearance) (Pt Warm) -Tenderness on Palpation (Talisha-wound Yes Skin Appearance) -Ulcer Cleansing Rinsed/ Irrigated with Saline -Foul Odor after Cleansing No -Anesthetic Used 4% Lidocaine Solution [Edema Assessment] -Lower Limb Edema Present NA - Nurse 2 - General Ulcer CM Notes Start: 08/19/18 10:13 Freq: Status: Active Protocol: Activity Type Activity Date Activity User E-Sign Co-Sign Detail Recorded Client Recorded Date Recorded By Document 08/19/18 10:58 DV [id number] 08/19/18 10:59 DV 08/19/18 10:58 Wound Center Nurse 2 [Procedure/Treatment] #4 Left Plantar -Time 10:58 -Correct Patient Yes -Correct Side, Site, Position Yes -Correct Procedure Yes -Procedure Performed Yes -Type of Procedure Debridement -Clinical Debridement Subcutaneous -Post Debridement Size (cm) - Length 1.3 -Post Debridement Size (cm) - Width 1.0 -Post Debridement Size (cm) - Depth 0.3 -Total Square Cm 1.30 -Wound/Ulcer Outcome Not Healed -Ulcer Cleansing Rinsed/ Irrigated with Saline -Foul Odor after Cleansing No -Bioengineered Tissue No -Bleeding Controlled with Pressure -Offloading No -Treatment Response Procedure Tolerated Well [See Physician Procedure note for Specifics] Pain Scale: 0-10 Numeric [Pain] -Is Patient Pain Free? Yes Musculoskeletal: No Tenderness to Palpation of Joints or Extremities, Tenderness - Slight tenderness with palpation of the ulcer site, - - Hammertoe deformities of digits 2?5 of the right and left foot. Bilateral hallux malleus deformities. Neurological: Sensory exam intact to light touch and pain Psych/Mental Status: Normal Affect, Appropriate Debridement Note Post-Debridement Measurements/Treatment WC - Nurse 2 - General Ulcer CM Notes Start: 08/19/18 10:13 Freq: Status: Active Protocol: Activity Type Activity Date Activity User E-Sign Co-Sign Detail Recorded Client Recorded Date Recorded By Document 08/19/18 10:58 DV [id number] 08/19/18 10:59 DV 08/19/18 10:58 Wound Center Nurse 2 #4 Left Plantar -Time 10:58 -Correct Patient Yes -Correct Side, Site, Position Yes -Correct Procedure Yes -Procedure Performed Yes -Type of Procedure Debridement -Clinical Debridement Subcutaneous -Post Debridement Size (cm) - Length 1.3 -Post Debridement Size (cm) - Width 1.0 -Post Debridement Size (cm) - Depth 0.3 -Total Square Cm 1.30 -Wound/Ulcer Outcome Not Healed -Ulcer Cleansing Rinsed/ Irrigated with Saline -Foul Odor after Cleansing No -Bioengineered Tissue No -Bleeding Controlled with Pressure -Offloading No -Treatment Response Procedure Tolerated Well Pain Scale: 0-10 Numeric Is Patient Pain Free? Yes Wound debrided: Left distal plantar forefoot Laterality: Left Type of Debridement: Excisional debridement Anesthesia Used: 4% Lidocaine Solution Depth: in the subcutaneous layer Percentage of wound debrided: 100 Instrument Used: #15 blade Tissue Removed: Adherent slough, fibrin, hyperkeratotic tissue Severity: Fat Layer Exposed Amount of bleeding with debridement: Mild Bleeding Controlled with: Pressure Patient tolerated procedure well Assessment/Plan Assessment: Ulcer of fat layer exposed to right dorsal second toe. Neuropathy left leg. Other comorbidities Plan: Patient was carefully examined and evaluated again today. Ulcer slightly increased to the left distal plantar forefoot. Ulcer site was carefully debrided subcutaneously as noted in the clinical panel. Once complete, the site was carefully cleansed and then dressed with Keena followed by dry sterile dressing and Tubigrip for compression. The patient is to change his dressings in this manner daily. The importance of keeping pressure off of the ulcer site was stressed in great detail to the patient today. The importance of proper shoe gear with enough height and width was stressed as well. He was instructed to stay away from tight and constricting boots. He admits to walking without any protection to the left plantar foot again this week at times. I stressed the importance of wearing his AFO that he got from [employer], as this has an offloading pocket in the exact area of his ulcer. Patient is non compliant in this and only wears the brace some of the time. We discussed the possibility of having alterations made to this brace if needed in the future. He was instructed to keep pressure completely off of the ulcer site. LEAS and venous Doppler studies were ordered and the results were reviewed at previous visits. Final report will be placed in the patient's chart. Patient was educated on all signs and symptoms of local and systemic infection and he is instructed to go to the emergency room immediately should he notice any of these. All questions were answered to the patient's satisfaction. He will follow-up in clinic in 1 week to check on progress of ulcer, but was instructed to follow-up sooner if needed.
[2018-09-09 13:56] VITALS: BP 149/83; PULSE 76; RESP 18; TEMP 36.9; BMI 39.9
--- NOTE | 2018-09-09 14:43 | PCM.WC.PN ---
(1) Chronic ulcer of left foot with fat layer exposed Status: Acute Current Visit: Yes Code(s): L97.522 - Non-pressure chronic ulcer of other part of left foot with fat layer exposed (2) Delayed wound healing Status: Acute Current Visit: Yes Code(s): T14.8XXD - Other injury of unspecified body region, subsequent encounter (3) Left foot pain Status: Acute Current Visit: Yes Code(s): M79.672 - Pain in left foot (4) Lower extremity neuropathy Status: Acute Current Visit: Yes Code(s): G57.90 - Unspecified mononeuropathy of unspecified lower limb (5) Other hammer toe(s) (acquired), left foot Status: Acute Current Visit: Yes Code(s): M20.42 - Other hammer toe(s) (acquired), left foot (6) Other hammer toe(s) (acquired), right foot Status: Acute Current Visit: Yes Code(s): M20.41 - Other hammer toe(s) (acquired), right foot (7) PVD (peripheral vascular disease) Status: Acute Current Visit: Yes Code(s): I73.9 - Peripheral vascular disease, unspecified Type of Wound Date of Service: 09/09/18 Chief Complaint: Follow-up on pressure ulcer to left plantar foot History of Wound: 63-year-old white 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 This has been going on for approximately 3 months he thought it would get better the second toe is completely encompassed with erythema not warm to touch. 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 Patient also has a lot of autoimmune disorders and is on medications for that. Progress of Wound: Ulcer to left plantar distal forefoot improved in size this week. Patient has been having daily dressing changes. Patient denies any purulence or extending redness. Patient denies any feelings of nausea, vomiting, fever, chills. Has not been compliant with his offloading mechanisms. - Physical Exam Vital Signs Temp Pulse Resp BP 98.4 F 76 18 149/83 H 09/09/18 13:56 09/09/18 13:56 09/09/18 13:56 09/09/18 13:56 General: Alert, Oriented x3, Cooperative, No apparent distress HEENT: Atraumatic Oral: Moist Mucosa Cardiovascular: Regular rate Abdomen: Soft, Non Tender, Obese Extremities: No clubbing, No cyanosis, Diminished Peripheral Pulses - DP pulses diminished Bilaterally, Edema - generlaized BLLE edema Skin: Ulcer/ Wound - ulcer to left distal plantar forefoot with fat layer exposed. The base is a mixture of adherent slough, fibrin, granular tissue, as well as some surrounding hyperkeratotic tissue. There continues to be no probing to bone, no tracking, no undermining, no purulence, no extending or surrounding cellulitis, no increase in warmth to the ulcer site. Wound Measurements and Assessment WC - Nurse 1 - General Ulcer Measurement Start: 08/19/18 10:13 Freq: Status: Active Protocol: Activity Type Activity Date Activity User E-Sign Co-Sign Detail Recorded Client Recorded Date Recorded By Document 09/09/18 13:56 RB [id number] 09/09/18 14:07 RB 09/09/18 13:56 Wound Center Nurse 1 [Ulcer Assessment] #4 Left Plantar -Combined with other wound No -Current Size (cm) - Length 0.2 -Current Size (cm) - Width 0.2 -Current Size (cm) - Depth 0.3 -Total Square Cm 0.04 -Tunneling No -Undermining/Tunneling No -Circular Undermining No -Exudate Amt Small (1-33%) -Exudate Type Serosanguineous -Wound Margin Thickened -Granulation Amt Small (1-33%) -Granulation Quality Colman -Slough/Fibrin Yes -Necrosis Amt Large (67-100%) -Necrotic Tissue Type Adherent Slough -Structure Exposed N/A -Texture (Talisha-wound Skin Appearance) Callus -Moisture (Talisha-wound Skin Appearance Assessed ) -Color (Talisha-wound Skin Appearance) Assessed -Temperature (Talisha-wound Skin No Abnormality Appearance) (Pt Warm) -Tenderness on Palpation (Talisha-wound No Skin Appearance) -Ulcer Cleansing Rinsed/ Irrigated with Saline -Foul Odor after Cleansing No -Anesthetic Used 5% Lidocaine Gel WC - Nurse 2 - General Ulcer CM Notes Start: 08/19/18 10:13 Freq: Status: Active Protocol: Activity Type Activity Date Activity User E-Sign Co-Sign Detail Recorded Client Recorded Date Recorded By Document 09/09/18 14:19 [id number] 09/09/18 14:20 09/09/18 14:19 Wound Center Nurse 2 [Procedure/Treatment] -Time 14:19 -Correct Patient Yes -Correct Side, Site, Position Yes -Correct Procedure Yes -Procedure Performed Yes -Type of Procedure Debridement -Clinical Debridement Subcutaneous -Post Debridement Size (cm) - Length 1.1 -Post Debridement Size (cm) - Width 0.5 -Post Debridement Size (cm) - Depth 0.3 -Total Square Cm 0.55 -Wound/Ulcer Outcome Not Healed -Ulcer Cleansing Not Cleansed -Foul Odor after Cleansing No -Bioengineered Tissue No -Bleeding Controlled with NA -Offloading No -Treatment Response Procedure Tolerated Well [See Physician Procedure note for Specifics] Pain Scale: 0-10 Numeric [Pain] -Is Patient Pain Free? Yes Musculoskeletal: No Muscle Wasting Neurological: Neuro grossly intact, - - dimished neurovascular sensation to bilateral lower extremities Psych/Mental Status: Normal Affect, Appropriate, Alert and oriented to time, place, person, mood and affect Debridement Note Post-Debridement Measurements/Treatment WC - Nurse 2 - General Ulcer CM Notes Start: 08/19/18 10:13 Freq: Status: Active Protocol: Activity Type Activity Date Activity User E-Sign Co-Sign Detail Recorded Client Recorded Date Recorded By Document 08/19/18 10:58 [id number] 08/19/18 10:59 Document 09/09/18 14:19 [id number] 09/09/18 14:20 08/19/18 09/09/18 10:58 14:19 Wound Center Nurse 2 #4 Left Plantar -Time 10:58 14:19 -Correct Patient Yes Yes -Correct Side, Site, Position Yes Yes -Correct Procedure Yes Yes -Procedure Performed Yes Yes -Type of Procedure Debridement Debridement -Clinical Debridement Subcutaneous Subcutaneous -Post Debridement Size (cm) - Length 1.3 1.1 -Post Debridement Size (cm) - Width 1.0 0.5 -Post Debridement Size (cm) - Depth 0.3 0.3 -Total Square Cm 1.30 0.55 -Wound/Ulcer Outcome Not Healed Not Healed -Ulcer Cleansing Rinsed/ Not Cleansed Irrigated with Saline -Foul Odor after Cleansing No No -Bioengineered Tissue No No -Bleeding Controlled with Pressure NA -Offloading No No -Treatment Response Procedure Procedure Tolerated Well Tolerated Well Pain Scale: 0-10 Numeric Is Patient Pain Free? Yes Yes Wound debrided: left plantar foot ulcer Laterality: Left Type of Debridement: Excisional debridement Anesthesia Used: 5% Lidocaine Gel Depth: in the subcutaneous layer Percentage of wound debrided: 100 Instrument Used: 7mm curette, #15 blade Tissue Removed: slough, devitalized tissue, and hyperkeratotic edges Severity: Fat Layer Exposed Amount of bleeding with debridement: Mild Bleeding Controlled with: Pressure Patient tolerated procedure well Assessment/Plan Active Problems Lower extremity neuropathy (Acute) Other hammer toe(s) (acquired), right foot (Acute) Other hammer toe(s) (acquired), left foot (Acute) PVD (peripheral vascular disease) (Acute) Delayed wound healing (Acute) Chronic ulcer of left foot with fat layer exposed (Acute) Left foot pain (Acute) Assessment: Ulcer of fat layer exposed to right dorsal second toe. Neuropathy left leg. Other comorbidities Plan: Courtesy visit for Dr. Francisco. Patient was carefully examined and evaluated again today. Ulcer size improved to the left distal plantar forefoot. Ulcer site was carefully debrided subcutaneously as noted in the clinical panel. Once complete, the site was carefully cleansed and then dressed with Keena followed by dry sterile dressing and Tubigrip for compression. The patient is to change his dressings in this manner daily. The importance of keeping pressure off of the ulcer site was stressed in great detail to the patient today. The importance of proper shoe gear with enough height and width was stressed as well. He was instructed to stay away from tight and constricting boots. He admits to walking without any protection to the left plantar foot again this week at times and not utilizing his offloading mechanisms. I stressed the importance of wearing his AFO that he got from [employer], as this has an offloading pocket in the exact area of his ulcer. Patient is non compliant in this and only wears the brace some of the time. We discussed the possibility of having alterations made to this brace if needed in the future. He was instructed to keep pressure completely off of the ulcer site. LEAS and venous Doppler studies were ordered and the results were reviewed at previous visits. Final report will be placed in the patient's chart. Patient was educated on all signs and symptoms of local and systemic infection and he is instructed to go to the emergency room immediately should he notice any of these. All questions were answered to the patient's satisfaction. He will follow-up in clinic in 1 week to check on progress of ulcer, but was instructed to follow-up sooner if needed. Code Visit [id number]: [id number] Caterina subq tissue 20 sq cm/<
--- NOTE | 2018-09-09 14:47 | PN.PCM_ITS ---
(1) Chronic ulcer of left foot with fat layer exposed Status: Acute Current Visit: Yes Code(s): L97.522 - Non-pressure chronic ulcer of other part of left foot with fat layer exposed (2) Delayed wound healing Status: Acute Current Visit: Yes Code(s): T14.8XXD - Other injury of unspecified body region, subsequent encounter (3) Left foot pain Status: Acute Current Visit: Yes Code(s): M79.672 - Pain in left foot (4) Lower extremity neuropathy Status: Acute Current Visit: Yes Code(s): G57.90 - Unspecified mononeuropathy of unspecified lower limb (5) Other hammer toe(s) (acquired), left foot Status: Acute Current Visit: Yes Code(s): M20.42 - Other hammer toe(s) (acquired), left foot (6) Other hammer toe(s) (acquired), right foot Status: Acute Current Visit: Yes Code(s): M20.41 - Other hammer toe(s) (acquired), right foot (7) PVD (peripheral vascular disease) Status: Acute Current Visit: Yes Code(s): I73.9 - Peripheral vascular disease, unspecified Type of Wound Date of Service: 09/09/18 Chief Complaint: Follow-up on pressure ulcer to left plantar foot History of Wound: 63-year-old white 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 This has been going on for approximately 3 months he thought it would get better the second toe is completely encompassed with erythema not warm to touch. 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 Patient also has a lot of autoimmune disorders and is on medications for that. Progress of Wound: Ulcer to left plantar distal forefoot improved in size this week. Patient has been having daily dressing changes. Patient denies any purulence or extending redness. Patient denies any feelings of nausea, vomiting, fever, chills. Has not been compliant with his offloading mechanisms. - Physical Exam Vital Signs Temp Pulse Resp BP 98.4 F 76 18 149/83 H 09/09/18 13:56 09/09/18 13:56 09/09/18 13:56 09/09/18 13:56 General: Alert, Oriented x3, Cooperative, No apparent distress HEENT: Atraumatic Oral: Moist Mucosa Cardiovascular: Regular rate Abdomen: Soft, Non Tender, Obese Extremities: No clubbing, No cyanosis, Diminished Peripheral Pulses - DP pulses diminished Bilaterally, Edema - generlaized BLLE edema Skin: Ulcer/ Wound - ulcer to left distal plantar forefoot with fat layer exposed. The base is a mixture of adherent slough, fibrin, granular tissue, as well as some surrounding hyperkeratotic tissue. There continues to be no probing to bone, no tracking, no undermining, no purulence, no extending or surrounding cellulitis, no increase in warmth to the ulcer site. Wound Measurements and Assessment WC - Nurse 1 - General Ulcer Measurement Start: 08/19/18 10:13 Freq: Status: Active Protocol: Activity Type Activity Date Activity User E-Sign Co-Sign Detail Recorded Client Recorded Date Recorded By Document 09/09/18 13:56 RB [id number] 09/09/18 14:07 RB 09/09/18 13:56 Wound Center Nurse 1 [Ulcer Assessment] #4 Left Plantar -Combined with other wound No -Current Size (cm) - Length 0.2 -Current Size (cm) - Width 0.2 -Current Size (cm) - Depth 0.3 -Total Square Cm 0.04 -Tunneling No -Undermining/Tunneling No -Circular Undermining No -Exudate Amt Small (1-33%) -Exudate Type Serosanguineous -Wound Margin Thickened -Granulation Amt Small (1-33%) -Granulation Quality [place] -Slough/Fibrin Yes -Necrosis Amt Large (67-100%) -Necrotic Tissue Type Adherent Slough -Structure Exposed N/A -Texture (Talisha-wound Skin Appearance) Callus -Moisture (Talisha-wound Skin Appearance Assessed ) -Color (Talisha-wound Skin Appearance) Assessed -Temperature (Talisha-wound Skin No Abnormality Appearance) (Pt Warm) -Tenderness on Palpation (Talisha-wound No Skin Appearance) -Ulcer Cleansing Rinsed/ Irrigated with Saline -Foul Odor after Cleansing No -Anesthetic Used 5% Lidocaine Gel WC - Nurse 2 - General Ulcer CM Notes Start: 08/19/18 10:13 Freq: Status: Active Protocol: Activity Type Activity Date Activity User E-Sign Co-Sign Detail Recorded Client Recorded Date Recorded By Document 09/09/18 14:19 [id number] 09/09/18 14:20 09/09/18 14:19 Wound Center Nurse 2 [Procedure/Treatment] -Time 14:19 -Correct Patient Yes -Correct Side, Site, Position Yes -Correct Procedure Yes -Procedure Performed Yes -Type of Procedure Debridement -Clinical Debridement Subcutaneous -Post Debridement Size (cm) - Length 1.1 -Post Debridement Size (cm) - Width 0.5 -Post Debridement Size (cm) - Depth 0.3 -Total Square Cm 0.55 -Wound/Ulcer Outcome Not Healed -Ulcer Cleansing Not Cleansed -Foul Odor after Cleansing No -Bioengineered Tissue No -Bleeding Controlled with NA -Offloading No -Treatment Response Procedure Tolerated Well [See Physician Procedure note for Specifics] Pain Scale: 0-10 Numeric [Pain] -Is Patient Pain Free? Yes Musculoskeletal: No Muscle Wasting Neurological: Neuro grossly intact, - - dimished neurovascular sensation to bilateral lower extremities Psych/Mental Status: Normal Affect, Appropriate, Alert and oriented to time, place, person, mood and affect Debridement Note Post-Debridement Measurements/Treatment WC - Nurse 2 - General Ulcer CM Notes Start: 08/19/18 10:13 Freq: Status: Active Protocol: Activity Type Activity Date Activity User E-Sign Co-Sign Detail Recorded Client Recorded Date Recorded By Document 08/19/18 10:58 [id number] 08/19/18 10:59 Document 09/09/18 14:19 [id number] 09/09/18 14:20 08/19/18 09/09/18 10:58 14:19 Wound Center Nurse 2 #4 Left Plantar -Time 10:58 14:19 -Correct Patient Yes Yes -Correct Side, Site, Position Yes Yes -Correct Procedure Yes Yes -Procedure Performed Yes Yes -Type of Procedure Debridement Debridement -Clinical Debridement Subcutaneous Subcutaneous -Post Debridement Size (cm) - Length 1.3 1.1 -Post Debridement Size (cm) - Width 1.0 0.5 -Post Debridement Size (cm) - Depth 0.3 0.3 -Total Square Cm 1.30 0.55 -Wound/Ulcer Outcome Not Healed Not Healed -Ulcer Cleansing Rinsed/ Not Cleansed Irrigated with Saline -Foul Odor after Cleansing No No -Bioengineered Tissue No No -Bleeding Controlled with Pressure NA -Offloading No No -Treatment Response Procedure Procedure Tolerated Well Tolerated Well Pain Scale: 0-10 Numeric Is Patient Pain Free? Yes Yes Wound debrided: left plantar foot ulcer Laterality: Left Type of Debridement: Excisional debridement Anesthesia Used: 5% Lidocaine Gel Depth: in the subcutaneous layer Percentage of wound debrided: 100 Instrument Used: 7mm curette, #15 blade Tissue Removed: slough, devitalized tissue, and hyperkeratotic edges Severity: Fat Layer Exposed Amount of bleeding with debridement: Mild Bleeding Controlled with: Pressure Patient tolerated procedure well Assessment/Plan Active Problems Lower extremity neuropathy (Acute) Other hammer toe(s) (acquired), right foot (Acute) Other hammer toe(s) (acquired), left foot (Acute) PVD (peripheral vascular disease) (Acute) Delayed wound healing (Acute) Chronic ulcer of left foot with fat layer exposed (Acute) Left foot pain (Acute) Assessment: Ulcer of fat layer exposed to right dorsal second toe. Neuropathy left leg. Other comorbidities Plan: Courtesy visit for Dr. Francisco. Patient was carefully examined and evaluated again today. Ulcer size improved to the left distal plantar forefoot. Ulcer site was carefully debrided subcutaneously as noted in the clinical panel. Once complete, the site was carefully cleansed and then dressed with Keena followed by dry sterile dressing and Tubigrip for compression. The patient is to change his dressings in this manner daily. The importance of keeping pressure off of the ulcer site was stressed in great detail to the patient today. The importance of proper shoe gear with enough height and width was stressed as well. He was instructed to stay away from tight and constricting boots. He admits to walking without any protection to the left plantar foot again this week at times and not utilizing his offloading mechanisms. I stressed the importance of wearing his AFO that he got from [employer], as this has an offloading pocket in the exact area of his ulcer. Patient is non compliant in this and only wears the brace some of the time. We discussed the possibility of having alterations made to this brace if needed in the future. He was instructed to ke ep pressure completely off of the ulcer site. LEAS and venous Doppler studies were ordered and the results were reviewed at previous visits. Final report will be placed in the patient's chart. Patient was educated on all signs and symptoms of local and systemic infection and he is instructed to go to the emergency room immediately should he notice any of these. All questions were answered to the patient's satisfaction. He will follow-up in clinic in 1 week to check on progress of ulcer, but was instructed to follow-up sooner if needed. Code Visit [id number]: [id number] Caterina subq tissue 20 sq cm/<
== END 2018-09-13 23:59 ==
LOC: WC 14:00
PROVIDERS: Family Provider Internal Medicine; PCP Internal Medicine; Referring Provider Podiatrist; Visit Provider Podiatrist
DX: I73.9 Peripheral vascular disease, unspecified (principal); L97.512 Non-pressure chronic ulcer of other part of right foot with fat layer exposed; L97.522 Non-pressure chronic ulcer of other part of left foot with fat layer exposed; M20.41 Other hammer toe(s) (acquired), right foot; M20.42 Other hammer toe(s) (acquired), left foot; Z91.19 Patient's noncompliance with other medical treatment and regimen
CPT/HCPCS: 11042

== ENCOUNTER 2018-10-14 11:30 | Outpatient (RCR) | payer MEDICARE, SELFPAY ==
[2018-09-14 00:50] VITALS: BP 149/83; PULSE 76; RESP 18; TEMP 36.9
[2018-09-16 11:24] VITALS: BP 105/70; PULSE 78; RESP 16; TEMP 36.6; BMI 39.9
--- NOTE | 2018-09-16 14:41 | PN.PCM_ITS ---
(1) Other hammer toe(s) (acquired), right foot Status: Acute Current Visit: No Code(s): M20.41 - Other hammer toe(s) (acquired), right foot (2) Other hammer toe(s) (acquired), left foot Status: Acute Current Visit: No Code(s): M20.42 - Other hammer toe(s) (acquired), left foot (3) PVD (peripheral vascular disease) Status: Acute Current Visit: No Code(s): I73.9 - Peripheral vascular disease, unspecified (4) Delayed wound healing Status: Acute Current Visit: No Code(s): T14.8XXD - Other injury of unspecified body region, subsequent encounter (5) Chronic ulcer of left foot with fat layer exposed Status: Acute Current Visit: No Code(s): L97.522 - Non-pressure chronic ulcer of other part of left foot with fat layer exposed Type of Wound Chief Complaint: Follow-up on pressure ulcer to left plantar foot History of Wound: 63-year-old white male that likes to wear cowboy boots has developed ulcers on his left foot. This has been going on for approximately for months. Patient has a long history of noncompliance with offloading his ulcer sites. 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 Patient also has a lot of autoimmune disorders and is on medications for that. Progress of Wound: Patient presents after missing a number of appointments for ulcer to left plantar distal forefoot. Patient has new small ulcer to dorsal left 5th toe. Patient has been having daily dressing changes. Patient denies any purulence or extending redness. Patient denies any feelings of nausea, vomiting, fever, chills. Has not been compliant with his offloading mechanisms and continues to wear shoes he should not be wearing. - Physical Exam Vital Signs Temp Pulse Resp BP 97.8 F 78 16 105/70 09/16/18 11:24 09/16/18 11:24 09/16/18 11:24 09/16/18 11:24 General: Alert, Oriented x3, Cooperative, No apparent distress Extremities: Capillary Refill Less than 3 Seconds, No Calf Tenderness, Diminished Peripheral Pulses - Negative Juni and Kaye sign DP and PT pulses faintly palpable bilateral, Edema - Slight lower extremity edema Skin: Ulcer/ Wound - Ulcer to left distal plantar forefoot and dorsal lateral left fifth toe with fat layer exposed. The bases are noted to be a mixture of adherent slough, fibrin, granular tissue as well as surrounding hyperkeratotic tissue. There continues to be no probing to bone, no tracking, no undermining, no purulence, no extending or surrounding cellulitis, and no increase in warmth to either of the sites at this time. Wound Measurements and Assessment WC - Nurse 1 - General Ulcer Measurement Start: 09/16/18 11:21 Freq: Status: Active Protocol: Activity Type Activity Date Activity User E-Sign Co-Sign Detail Recorded Client Recorded Date Recorded By Document 09/16/18 11:24 MT [id number] 09/16/18 11:30 MT 09/16/18 11:24 Wound Center Nurse 1 [Ulcer Assessment] #4 Left Plantar -Combined with other wound No -Current Size (cm) - Length 1.2 -Current Size (cm) - Width 0.5 -Current Size (cm) - Depth 0.3 -Total Square Cm 0.60 -Tunneling Yes -Tunneling Position (O'clock) 12 -Tunneling Distance (cm) 0.6 -Tunneling Position #2 (O'clock) 7 -Tunneling Distance #2 (cm) 0.5 -Exudate Amt None Present (0 %) -Wound Margin Thickened & Rolled Under -Granulation Amt Large (67-100%) -Granulation Quality Red -Slough/Fibrin No -Texture (Talisha-wound Skin Appearance) Assessed Scarring -Moisture (Talisha-wound Skin Appearance Assessed ) -Color (Talisha-wound Skin Appearance) Assessed -Temperature (Talisha-wound Skin No Abnormality Appearance) (Pt Warm) -Tenderness on Palpation (Talisha-wound No Skin Appearance) -Ulcer Cleansing Rinsed/ Irrigated with Saline -Foul Odor after Cleansing No -Anesthetic Used 4% Lidocaine Solution [Edema Assessment] -Left Calf (cm) 38 -Left Ankle (cm) 22 WC - Nurse 2 - General Ulcer CM Notes Start: 09/16/18 11:21 Freq: Status: Active Protocol: Activity Type Activity Date Activity User E-Sign Co-Sign Detail Recorded Client Recorded Date Recorded By Document 09/16/18 11:56 DV [id number] 09/16/18 12:06 DV 09/16/18 11:56 Wound Center Nurse 2 [Procedure/Treatment] #5 Left 5th Toe -Time 12:06 -Correct Patient Yes -Correct Side, Site, Position Yes -Correct Procedure Yes -Procedure Performed Yes -Type of Procedure Debridement -Clinical Debridement Subcutaneous -Post Debridement Size (cm) - Length 0.3 -Post Debridement Size (cm) - Width 0.2 -Post Debridement Size (cm) - Depth 0.1 -Total Square Cm 0.06 -Wound/Ulcer Outcome Not Healed -Ulcer Cleansing Rinsed/ Irrigated with Saline -Foul Odor after Cleansing No -Bioengineered Tissue No -Bleeding Controlled with Pressure -Offloading No -Treatment Response Procedure Tolerated Well #4 Left Plantar -Time 11:58 -Correct Patient Yes -Correct Side, Site, Position Yes -Correct Procedure Yes -Procedure Performed Yes -Type of Procedure Debridement -Clinical Debridement Subcutaneous -Post Debridement Size (cm) - Length 1.5 -Post Debridement Size (cm) - Width 1.3 -Post Debridement Size (cm) - Depth 0.2 -Total Square Cm 1.95 -Wound/Ulcer Outcome Not Healed -Ulcer Cleansing Rinsed/ Irrigated with Saline -Foul Odor after Cleansing No -Bioengineered Tissue No -Bleeding Controlled with Pressure -Offloading No -Treatment Response Procedure Tolerated Well [See Physician Procedure note for Specifics] Musculoskeletal: No Tenderness to Palpation of Joints or Extremities, Tenderness - Very minor tenderness with palpation of ulcer site, - - Hammertoe deformities of digits 2?5 of the right and left foot. Bilateral hallux malleus deformities. Neurological: Sensory exam intact to light touch and pain Psych/Mental Status: Normal Affect, Appropriate Debridement Note Post-Debridement Measurements/Treatment WC - Nurse 2 - General Ulcer CM Notes Start: 09/16/18 11:21 Freq: Status: Active Protocol: Activity Type Activity Date Activity User E-Sign Co-Sign Detail Recorded Client Recorded Date Recorded By Document 09/16/18 11:56 DV [id number] 09/16/18 12:06 DV 09/16/18 11:56 Wound Center Nurse 2 #5 Left 5th Toe -Time 12:06 -Correct Patient Yes -Correct Side, Site, Position Yes -Correct Procedure Yes -Procedure Performed Yes -Type of Procedure Debridement -Clinical Debridement Subcutaneous -Post Debridement Size (cm) - Length 0.3 -Post Debridement Size (cm) - Width 0.2 -Post Debridement Size (cm) - Depth 0.1 -Total Square Cm 0.06 -Wound/Ulcer Outcome Not Healed -Ulcer Cleansing Rinsed/ Irrigated with Saline -Foul Odor after Cleansing No -Bioengineered Tissue No -Bleeding Controlled with Pressure -Offloading No -Treatment Response Procedure Tolerated Well #4 Left Plantar -Time 11:58 -Correct Patient Yes -Correct Side, Site, Position Yes -Correct Procedure Yes -Procedure Performed Yes -Type of Procedure Debridement -Clinical Debridement Subcutaneous -Post Debridement Size (cm) - Length 1.5 -Post Debridement Size (cm) - Width 1.3 -Post Debridement Size (cm) - Depth 0.2 -Total Square Cm 1.95 -Wound/Ulcer Outcome Not Healed -Ulcer Cleansing Rinsed/ Irrigated with Saline -Foul Odor after Cleansing No -Bioengineered Tissue No -Bleeding Controlled with Pressure -Offloading No -Treatment Response Procedure Tolerated Well Wound debrided: Left distal plantar forefoot Laterality: Left Type of Debridement: Excisional debridement Anesthesia Used: 4% Lidocaine Solution Depth: in the subcutaneous layer Percentage of wound debrided: 100 Instrument Used: #15 blade Tissue Removed: Adherent slough, fibrin, hyperkeratotic tissue Severity: Fat Layer Exposed Amount of bleeding with debridement: Mild Bleeding Controlled with: Pressure Patient tolerated procedure well - Additional Wound Wound debrided: Dorsal lateral fifth toe Laterality: Left Type of Debridement: Excisional debridement Anesthesia Used: 4% Lidocaine Solution Depth: in the subcutaneous layer Percentage of wound debrided: 100 Instrument Used: #15 blade Tissue Removed: Adherent slough, fibrin, hyperkeratotic tissue Severity: Fat Layer Exposed Amount of bleeding with debridement: Mild Bleeding Controlled with: Pressure Patient tolerated procedure: Patient tolerated procedure well Assessment/Plan Assessment: Ulcer of fat layer exposed to right dorsal second toe. Neuropathy left leg. Other comorbidities Plan: Patient was carefully examined and evaluated again today after missing many weeks of appointments. He has a new ulcer to dorsolateral left 5th toe. Patient relates he has been non compliant and wearing shoes he should not have been wearing at times that placed too much pressure to his feet/toes. Ulcer sites were carefully debrided subcutaneously as noted in the clinical panel. Once complete, the sites were carefully cleansed and then dressed with Keena followed by dry sterile dressing and Tubigrip for compression. The patient is to change his dressings in this manner daily. The importance of keeping pressure off of the ulcer site was stressed in great detail to the patient today. The importance of proper shoe gear with enough height and width was stressed as well. He was instructed to stay away from tight and constricting boots. He admits to walking without any protection to the left plantar foot again this week at times and not utilizing his offloading mechanisms. I stressed the importance of wearing his AFO that he got from [employer], as this has an offloading pocket in the exact area of his ulcer. Patient is non compliant in this and only wears the brace some of the time. We discussed the possibility of having alterations made to this brace if needed in the future. He was instructed to keep pressure completely off of the ulcer site. LEAS and venous Doppler studies were ordered and the results were reviewed at previous visits. Final report will be placed in the patient's chart. Patient was educated on all signs and symptoms of local and systemic infection and he is instructed to go to [facility] immediately should he notice any of these. All questions were answered to the patient's satisfaction. He will follow-up in clinic in 1 week to check on progress of ulcer, but was instructed to follow-up sooner if needed.
[2018-09-30 11:07] VITALS: BP 148/75; PULSE 73; RESP 18; TEMP 36.6; BMI 39.9
--- NOTE | 2018-09-30 12:32 | PN.PCM_ITS ---
(1) Other hammer toe(s) (acquired), right foot Status: Acute Current Visit: No Code(s): M20.41 - Other hammer toe(s) (acquired), right foot (2) Other hammer toe(s) (acquired), left foot Status: Acute Current Visit: No Code(s): M20.42 - Other hammer toe(s) (acquired), left foot (3) PVD (peripheral vascular disease) Status: Acute Current Visit: No Code(s): I73.9 - Peripheral vascular disease, unspecified (4) Delayed wound healing Status: Acute Current Visit: No Code(s): T14.8XXD - Other injury of unspecified body region, subsequent encounter (5) Chronic ulcer of left foot with fat layer exposed Status: Acute Current Visit: No Code(s): L97.522 - Non-pressure chronic ulcer of other part of left foot with fat layer exposed Type of Wound Chief Complaint: Ulcer to left plantar foot History of Wound: 63-year-old white male that likes to wear cowboy boots has developed ulcers on his left foot. This has been going on for approximately for months. Patient has a long history of noncompliance with offloading his ulcer sites. 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 Patient also has a lot of autoimmune disorders and is on medications for that. Progress of Wound: Patient presents after missing a number of appointments for ulcer to left plantar distal forefoot. Ulcer to dorsal left 5th toe healed today. Patient has been having daily dressing changes. Patient denies any purulence or extending redness. Patient has been non compliant in his treatment and continues to miss appointments. Patient denies any feelings of nausea, vomiting, fever, chills. Has not been compliant with his offloading mechanisms and continues to wear shoes he should not be wearing. - Physical Exam Vital Signs Temp Pulse Resp BP 98 F 73 18 148/75 H 09/30/18 11:07 09/30/18 11:07 09/30/18 11:07 09/30/18 11:07 General: Alert, Oriented x3, Cooperative, No apparent distress Extremities: Capillary Refill Less than 3 Seconds, No Calf Tenderness - Negative Juni and Kaye sign, Diminished Peripheral Pulses - DP and PT pulses faintly palpable bilateral, Edema - Slight lower extremity edema Skin: Ulcer/ Wound - Ulcer to left distal plantar forefoot with fat layer exposed. The base is noted to be a mixture of adherent slough, fibrin, granular tissue as well as surrounding hyperkeratotic tissue. There continues to be no probing to bone, no tracking, no undermining, no purulence, no extending or surrounding cellulitis, and no increase in warmth at this time. Previous ulcer to fifth toe is healed today. Wound Measurements and Assessment WC - Nurse 1 - General Ulcer Measurement Start: 09/16/18 11:21 Freq: Status: Active Protocol: Activity Type Activity Date Activity User E-Sign Co-Sign Detail Recorded Client Recorded Date Recorded By Document 09/30/18 11:07 [facility] [id number] 09/30/18 11:16 [facility] 09/30/18 11:07 Wound Center Nurse 1 [Ulcer Assessment] #5 Left 5th Toe -Combined with other wound No -Current Size (cm) - Length 0.1 -Current Size (cm) - Width 0.1 -Current Size (cm) - Depth 0.1 -Total Square Cm 0.01 -Date of Last Picture (Recall this 09/30/18 field) -Photo Taken No -Epithelialization Large 67-100% -Tunneling No -Undermining/Tunneling No -Circular Undermining No -Exudate Amt None Present -Texture (Talisha-wound Skin Appearance) Scarring -Moisture (Talisha-wound Skin Appearance Dry/Scaly ) -Color (Talisha-wound Skin Appearance) Assessed -Temperature (Talisha-wound Skin No Abnormality Appearance) (Pt Warm) -Tenderness on Palpation (Talisha-wound No Skin Appearance) -Ulcer Cleansing Rinsed/ Irrigated with Saline -Foul Odor after Cleansing No -Anesthetic Used 5% Lidocaine Gel #4 Left Plantar -Combined with other wound No -Current Size (cm) - Length 0.3 -Current Size (cm) - Width 0.2 -Current Size (cm) - Depth 0.2 -Total Square Cm 0.06 -Date of Last Picture (Recall this 09/30/18 field) -Photo Taken Yes -Epithelialization None Present -Tunneling No -Undermining/Tunneling Yes -Undermining/Tunneling Starts (O' 12 clock) -Undermining/Tunneling Ends (O'clock) 12 -Maximum Distance (cm) 0.2 -Exudate Amt Small -Exudate Type Sanguineous -Wound Margin Thickened -Granulation Amt Small (1-33%) -Granulation Quality Red -Slough/Fibrin Yes -Necrosis Amt Large (67-100%) -Necrotic Tissue Type Adherent Slough -Texture (Talisha-wound Skin Appearance) Callus Scarring -Moisture (Talisha-wound Skin Appearance Dry/Scaly ) -Color (Talisha-wound Skin Appearance) Assessed -Temperature (Talisha-wound Skin No Abnormality Appearance) (Pt Warm) -Tenderness on Palpation (Talisha-wound No Skin Appearance) -Ulcer Cleansing Rinsed/ Irrigated with Saline -Foul Odor after Cleansing No -Anesthetic Used 5% Lidocaine Gel WC - Nurse 2 - General Ulcer CM Notes Start: 09/16/18 11:21 Freq: Status: Active Protocol: Activity Type Activity Date Activity User E-Sign Co-Sign Detail Recorded Client Recorded Date Recorded By Document 09/30/18 11:33 DV [email or web address] 09/30/18 11:43 DV 09/30/18 11:33 Wound Center Nurse 2 [Procedure/Treatment] #5 Left 5th Toe -Time 11:33 -Correct Patient Yes -Correct Side, Site, Position Yes -Procedure Performed No -Post Debridement Size (cm) - Length 0 -Post Debridement Size (cm) - Width 0 -Post Debridement Size (cm) - Depth 0 -Total Square Cm 0 -Wound/Ulcer Outcome Healed- Epithelialized #4 Left Plantar -Time 11:33 -Correct Patient Yes -Correct Side, Site, Position Yes -Correct Procedure Yes -Procedure Performed Yes -Type of Procedure Debridement -Clinical Debridement Subcutaneous -Post Debridement Size (cm) - Length 1.2 -Post Debridement Size (cm) - Width 0.8 -Post Debridement Size (cm) - Depth 0.2 -Total Square Cm 0.96 -Wound/Ulcer Outcome Not Healed -Ulcer Cleansing Rinsed/ Irrigated with Saline -Foul Odor after Cleansing No -Bioengineered Tissue No -Bleeding Controlled with Pressure -Offloading Yes -Type of Offloading Camwalker -Treatment Response Procedure Tolerated Well [See Physician Procedure note for Specifics] Pain Scale: 0-10 Numeric [Pain] -Is Patient Pain Free? Yes Musculoskeletal: No Tenderness to Palpation of Joints or Extremities, Tenderness - Very minor tenderness with palpation of ulcer site, - - Hammertoe deformities of digits 2?5 of the right and left foot. Bilateral hallux malleus deformities. Neurological: Sensory exam intact to light touch and pain Psych/Mental Status: Normal Affect, Appropriate Debridement Note Post-Debridement Measurements/Treatment WC - Nurse 2 - General Ulcer CM Notes Start: 09/16/18 11:21 Freq: Status: Active Protocol: Activity Type Activity Date Activity User E-Sign Co-Sign Detail Recorded Client Recorded Date Recorded By Document 09/16/18 11:56 DV [id number] 09/16/18 12:06 DV Document 09/30/18 11:33 DV [id number] 09/30/18 11:43 DV 09/16/18 09/30/18 11:56 11:33 Wound Center Nurse 2 #5 Left 5th Toe -Time 12:06 11:33 -Correct Patient Yes Yes -Correct Side, Site, Position Yes Yes -Correct Procedure Yes -Procedure Performed Yes No -Type of Procedure Debridement -Clinical Debridement Subcutaneous -Post Debridement Size (cm) - Length 0.3 0 -Post Debridement Size (cm) - Width 0.2 0 -Post Debridement Size (cm) - Depth 0.1 0 -Total Square Cm 0.06 0 -Wound/Ulcer Outcome Not Healed Healed- Epithelialized -Ulcer Cleansing Rinsed/ Irrigated with Saline -Foul Odor after Cleansing No -Bioengineered Tissue No -Bleeding Controlled with Pressure -Offloading No -Treatment Response Procedure Tolerated Well #4 Left Plantar -Time 11:58 11:33 -Correct Patient Yes Yes -Correct Side, Site, Position Yes Yes -Correct Procedure Yes Yes -Procedure Performed Yes Yes -Type of Procedure Debridement Debridement -Clinical Debridement Subcutaneous Subcutaneous -Post Debridement Size (cm) - Length 1.5 1.2 -Post Debridement Size (cm) - Width 1.3 0.8 -Post Debridement Size (cm) - Depth 0.2 0.2 -Total Square Cm 1.95 0.96 -Wound/Ulcer Outcome Not Healed Not Healed -Ulcer Cleansing Rinsed/ Rinsed/ Irrigated with Irrigated with Saline Saline -Foul Odor after Cleansing No No -Bioengineered Tissue No No -Bleeding Controlled with Pressure Pressure -Offloading No Yes -Type of Offloading Camwalker -Treatment Response Procedure Procedure Tolerated Well Tolerated Well Pain Scale: 0-10 Numeric Is Patient Pain Free? Yes Wound debrided: Left distal plantar forefoot Laterality: Left Type of Debridement: Excisional debridement Anesthesia Used: 4% Lidocaine Solution Depth: in the subcutaneous layer Percentage of wound debrided: 100 Instrument Used: #15 blade, - - Tissue nipper Tissue Removed: Adherent slough, fibrin, hyperkeratotic tissue Severity: Fat Layer Exposed Amount of bleeding with debridement: Mild Bleeding Controlled with: Pressure Patient tolerated procedure well Assessment/Plan Assessment: Ulcer of fat layer exposed to right dorsal second toe. Neuropathy left leg. Other comorbidities Plan: Patient was carefully examined and evaluated again today after missing his appointment last week again. Previous ulcer to the left fifth toe is healed today. Patient continues to admit to being noncompliant to wearing appropriate shoe gear at all times as instructed, but says he is doing his best to do better about this. Ulcer site was carefully debrided subcutaneously as noted in the clinical panel. Once complete, the site was carefully cleansed and then dressed with Keena followed by dry sterile dressing and Tubigrip for compression. The patient is to change his dressings in this manner daily. The importance of keeping pressure off of the ulcer site was stressed in great detail to the patient today. The importance of proper shoe gear with enough height and width was stressed as well. He was instructed to stay away from tight and c onstricting boots. He admits to walking without any protection to the left plantar foot again this week at times and not utilizing his offloading mechanisms. I stressed the importance of wearing his AFO that he got from [employer], as this has an offloading pocket in the exact area of his ulcer. Patient is non compliant in this and only wears the brace some of the time. We discussed the possibility of having alterations made to this brace if needed in the future. I also discussed the possibility of having the patient in the TCC in order to get the ulcer healed. He was instructed to keep pressure completely off of the ulcer site. LEAS and venous Doppler studies were ordered and the results were reviewed at previous visits. Final report will be placed in the patient's chart. Patient was educated on all signs and symptoms of local and systemic infection and he is instructed to go to the emergency room immediately should he notice any of these. All questions were answered to the patient's satisfaction. He will follow-up in clinic in 1 week to check on progress of ulcer, but was instructed to follow-up sooner if needed.
[2018-10-07 11:11] VITALS: BP 136/89; PULSE 99; RESP 18; TEMP 36.9; BMI 39.9
--- NOTE | 2018-10-07 11:29 | PCM.WC.PN ---
(1) Other hammer toe(s) (acquired), right foot Status: Acute Current Visit: No Code(s): M20.41 - Other hammer toe(s) (acquired), right foot (2) Other hammer toe(s) (acquired), left foot Status: Acute Current Visit: No Code(s): M20.42 - Other hammer toe(s) (acquired), left foot (3) PVD (peripheral vascular disease) Status: Acute Current Visit: No Code(s): I73.9 - Peripheral vascular disease, unspecified (4) Delayed wound healing Status: Acute Current Visit: No Code(s): T14.8XXD - Other injury of unspecified body region, subsequent encounter (5) Chronic ulcer of left foot with fat layer exposed Status: Acute Current Visit: No Code(s): L97.522 - Non-pressure chronic ulcer of other part of left foot with fat layer exposed Type of Wound Chief Complaint: Ulcer to left plantar foot History of Wound: 63-year-old white male that likes to wear cowboy boots has developed ulcers on his left foot. This has been going on for approximately for months. Patient has a long history of noncompliance with offloading his ulcer sites. 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 Patient also has a lot of autoimmune disorders and is on medications for that. Progress of Wound: Patient presents for follow up of ulcer to left plantar distal forefoot. Patient denies any purulence or extending redness. Patient says he did a much better job staying off of his foot since the weather was so bad the last week. Patient denies any feelings of nausea, vomiting, fever, chills. - Physical Exam Vital Signs Temp Pulse Resp BP 98.4 F 99 18 136/89 H 10/07/18 11:11 10/07/18 11:11 10/07/18 11:11 10/07/18 11:11 General: Alert, Oriented x3, Cooperative, No apparent distress Extremities: Capillary Refill Less than 3 Seconds, No Calf Tenderness - Negative Juni and Kaye sign, Diminished Peripheral Pulses - DP and PT pulses faintly palpable bilateral, Edema - Slight lower extremity edema Skin: Ulcer/ Wound - Ulcer to left distal plantar forefoot with fat layer exposed. Improvement noted today. The base is noted to be a mixture of adherent slough, fibrin, granular tissue as well as surrounding hyperkeratotic tissue. There continues to be no probing to bone, no tracking, no undermining, no purulence, no extending or surrounding cellulitis, and no increase in warmth at this time. Wound Measurements and Assessment HEATHER - Nurse 1 - General Ulcer Measurement Start: 09/16/18 11:21 Freq: Status: Active Protocol: Activity Type Activity Date Activity User E-Sign Co-Sign Detail Recorded Client Recorded Date Recorded By Document 10/07/18 11:11 [id number] 10/07/18 11:13 10/07/18 11:11 Wound Center Nurse 1 [Ulcer Assessment] #4 Left Plantar -Combined with other wound No -Current Size (cm) - Length 0.3 -Current Size (cm) - Width 0.3 -Current Size (cm) - Depth 0.2 -Total Square Cm 0.09 -Photo Taken No -Tunneling No -Undermining/Tunneling No -Circular Undermining No -Exudate Amt Small -Exudate Type Serosanguineous -Wound Margin Thickened -Granulation Amt Small (1-33%) -Granulation Quality [place] -Slough/Fibrin Yes -Necrosis Amt Medium (34-66%) -Necrotic Tissue Type Adherent Slough -Structure Exposed N/A -Texture (Talisha-wound Skin Appearance) Callus -Moisture (Talisha-wound Skin Appearance Assessed ) -Color (Talisha-wound Skin Appearance) Assessed -Temperature (Talisha-wound Skin No Abnormality Appearance) (Pt Warm) -Tenderness on Palpation (Talisha-wound No Skin Appearance) -Ulcer Cleansing Rinsed/ Irrigated with Saline -Foul Odor after Cleansing No -Anesthetic Used 4% Lidocaine Solution WC - Nurse 2 - General Ulcer CM Notes Start: 09/16/18 11:21 Freq: Status: Active Protocol: Activity Type Activity Date Activity User E-Sign Co-Sign Detail Recorded Client Recorded Date Recorded By Document 10/07/18 11:26 DV [id number] 10/07/18 11:27 DV 10/07/18 11:26 Wound Center Nurse 2 [Procedure/Treatment] -Time 11:26 -Correct Patient Yes -Correct Side, Site, Position Yes -Correct Procedure Yes -Procedure Performed Yes -Type of Procedure Debridement -Clinical Debridement Subcutaneous -Post Debridement Size (cm) - Length 0.4 -Post Debridement Size (cm) - Width 0.4 -Post Debridement Size (cm) - Depth 0.2 -Total Square Cm 0.16 -Wound/Ulcer Outcome Not Healed -Ulcer Cleansing Rinsed/ Irrigated with Saline -Foul Odor after Cleansing No -Bioengineered Tissue No -Bleeding Controlled with Pressure -Offloading No -Type of Offloading Camwalker -Treatment Response Procedure Tolerated Well [See Physician Procedure note for Specifics] Pain Scale: 0-10 Numeric [Pain] -Is Patient Pain Free? Yes Musculoskeletal: No Tenderness to Palpation of Joints or Extremities, Tenderness - Very minor tenderness with manipulation of ulcer site, - - Hammertoe deformities of digits 2?5 of the right and left foot. Bilateral hallux malleus deformities. Neurological: Sensory exam intact to light touch and pain Psych/Mental Status: Normal Affect, Appropriate Debridement Note Post-Debridement Measurements/Treatment WC - Nurse 2 - General Ulcer CM Notes Start: 09/16/18 11:21 Freq: Status: Active Protocol: Activity Type Activity Date Activity User E-Sign Co-Sign Detail Recorded Client Recorded Date Recorded By Document 09/16/18 11:56 DV [id number] 09/16/18 12:06 DV Document 09/30/18 11:33 DV [id number] 09/30/18 11:43 DV Document 10/07/18 11:26 DV [id number] 10/07/18 11:27 DV 09/16/18 09/30/18 10/07/18 11:56 11:33 11:26 Wound Center Nurse 2 #5 Left 5th Toe -Time 12:06 11:33 -Correct Patient Yes Yes -Correct Side, Site, Position Yes Yes -Correct Procedure Yes -Procedure Performed Yes No -Type of Procedure Debridement -Clinical Debridement Subcutaneous -Post Debridement Size (cm) - Length 0.3 0 -Post Debridement Size (cm) - Width 0.2 0 -Post Debridement Size (cm) - Depth 0.1 0 -Total Square Cm 0.06 0 -Wound/Ulcer Outcome Not Healed Healed- Epithelialized -Ulcer Cleansing Rinsed/ Irrigated with Saline -Foul Odor after Cleansing No -Bioengineered Tissue No -Bleeding Controlled with Pressure -Offloading No -Treatment Response Procedure Tolerated Well #4 Left Plantar -Time 11:58 11:33 11:26 -Correct Patient Yes Yes Yes -Correct Side, Site, Position Yes Yes Yes -Correct Procedure Yes Yes Yes -Procedure Performed Yes Yes Yes -Type of Procedure Debridement Debridement Debridement -Clinical Debridement Subcutaneous Subcutaneous Subcutaneous -Post Debridement Size (cm) - Length 1.5 1.2 0.4 -Post Debridement Size (cm) - Width 1.3 0.8 0.4 -Post Debridement Size (cm) - Depth 0.2 0.2 0.2 -Total Square Cm 1.95 0.96 0.16 -Wound/Ulcer Outcome Not Healed Not Healed Not Healed -Ulcer Cleansing Rinsed/ Rinsed/ Rinsed/ Irrigated with Irrigated with Irrigated with Saline Saline Saline -Foul Odor after Cleansing No No No -Bioengineered Tissue No No No -Bleeding Controlled with Pressure Pressure Pressure -Offloading No Yes No -Type of Offloading Camwalker Camwalker -Treatment Response Procedure Procedure Procedure Tolerated Well Tolerated Well Tolerated Well Pain Scale: 0-10 Numeric Is Patient Pain Free? Yes Yes Wound debrided: Left distal plantar forefoot Laterality: Left Type of Debridement: Excisional debridement Anesthesia Used: 4% Lidocaine Solution Depth: in the subcutaneous layer Percentage of wound debrided: 100 Instrument Used: #15 blade, - - Tissue nipper Tissue Removed: Adherent slough, fibrin, hyperkeratotic tissue Severity: Fat Layer Exposed Amount of bleeding with debridement: Mild Bleeding Controlled with: Pressure Patient tolerated procedure well Assessment/Plan Assessment: Ulcer of fat layer exposed to right dorsal second toe. Neuropathy left leg. Other comorbidities Plan: Patient was carefully examined and evaluated again today. Patient continues to admit to being noncompliant to wearing appropriate shoe gear at all times as instructed, but says he is doing his best to do better about this. Patient says he was better this last week about keeping pressure off of his foot since the weather was so bad. The ulcer site was carefully debrided subcutaneously as noted in the clinical panel again today. Once complete, the site was carefully cleansed and then dressed with Keena followed by dry sterile dressing and Tubigrip for compression. The patient is to change his dressings in this manner daily. The importance of keeping pressure off of the ulcer site was stressed in great detail to the patient today. The importance of proper shoe gear with enough height and width was stressed as well. He was instructed to stay away from tight and constricting boots. He admits to walking without any protection to the left plantar foot again this week at times and not utilizing his offloading mechanisms. I stressed the importance of wearing his AFO that he got from [employer], as this has an offloading pocket in the exact area of his ulcer. Patient is non compliant in this and only wears the brace some of the time. We discussed the possibility of having alterations made to this brace if needed in the future. I also discussed the possibility of having the patient in the TCC should I continue to notice non compliance with keeping pressure off of his foot. He was instructed to keep pressure completely off of the ulcer site. LEAS and venous Doppler studies were ordered and the results were reviewed at previous visits. Final report will be placed in the patient's chart. Patient was educated on all signs and symptoms of local and systemic infection and he is instructed to go to the emergency room immediately should he notice any of these. All questions were answered to the patient's satisfaction. He will follow-up in clinic in 1 week to check on progress of ulcer, but was instructed to follow-up sooner if needed.
== END 2018-10-14 23:59 ==
LOC: WC 11:30
PROVIDERS: Family Provider Internal Medicine; PCP Internal Medicine; Referring Provider Podiatrist; Visit Provider Podiatrist
DX: I73.9 Peripheral vascular disease, unspecified (principal); L97.522 Non-pressure chronic ulcer of other part of left foot with fat layer exposed; M20.41 Other hammer toe(s) (acquired), right foot; M20.42 Other hammer toe(s) (acquired), left foot; Z91.19 Patient's noncompliance with other medical treatment and regimen; G62.9 Polyneuropathy, unspecified
CPT/HCPCS: 11042

== ENCOUNTER 2018-11-11 10:30 | Outpatient (RCR) | payer MEDICARE, SELFPAY ==
[2018-10-07 11:11] VITALS: BMI 39.9
[2018-10-15 01:10] VITALS: BP 136/89; PULSE 99; RESP 18; TEMP 36.9
[2018-10-28 10:55] VITALS: BP 117/94; PULSE 83; RESP 18; TEMP 36.6; BMI 39.9
--- NOTE | 2018-10-28 12:46 | PCM.WC.PN ---
(1) Chronic ulcer of left foot with fat layer exposed Status: Acute Current Visit: No Code(s): L97.522 - Non-pressure chronic ulcer of other part of left foot with fat layer exposed (2) Other hammer toe(s) (acquired), right foot Status: Acute Current Visit: No Code(s): M20.41 - Other hammer toe(s) (acquired), right foot (3) Other hammer toe(s) (acquired), left foot Status: Acute Current Visit: No Code(s): M20.42 - Other hammer toe(s) (acquired), left foot (4) PVD (peripheral vascular disease) Status: Acute Current Visit: No Code(s): I73.9 - Peripheral vascular disease, unspecified (5) Delayed wound healing Status: Acute Current Visit: No Code(s): T14.8XXD - Other injury of unspecified body region, subsequent encounter Type of Wound Chief Complaint: Ulcer to left plantar foot History of Wound: 63-year-old white male that likes to wear cowboy boots has developed ulcers on his left foot. This has been going on for approximately for months. Patient has a long history of noncompliance with offloading his ulcer sites. 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 Patient also has a lot of autoimmune disorders and is on medications for that. Progress of Wound: Patient presents for follow up of ulcer to left plantar distal forefoot. Patient has missed multiple appointments in a row. Patient denies any purulence or extending redness. Patient continues to admit to wearing shoes that are not recommended and cause excess pressure in areas of foot and toes. Patient denies any feelings of nausea, vomiting, fever, chills. - Physical Exam Vital Signs Temp Pulse Resp BP 98 F 83 18 117/94 H 10/28/18 10:55 10/28/18 10:55 10/28/18 10:55 10/28/18 10:55 General: Alert, Oriented x3, Cooperative, No apparent distress Extremities: Capillary Refill Less than 3 Seconds, No Calf Tenderness - Negative Juni and Kaye sign, Diminished Peripheral Pulses - DP and PT pulses faintly palpable bilateral, Edema - Slight lower extremity edema Skin: Ulcer/ Wound - Ulcer to left distal plantar forefoot with fat layer exposed. Ulcer stable. The base is noted to be a mixture of adherent slough, fibrin, granular tissue as well as surrounding hyperkeratotic tissue. There continues to be no probing to bone, no tracking, no undermining, no purulence, no extending or surrounding cellulitis, and no increase in warmth at this time. Slight hyperkeratotic callus appreciated to left dorsal fifth and fourth toes. No ulcers appreciated to these areas upon debridement of hyperkeratotic tissue. Wound Measurements and Assessment WC - Nurse 1 - General Ulcer Measurement Start: 10/28/18 10:55 Freq: Status: Active Protocol: Activity Type Activity Date Activity User E-Sign Co-Sign Detail Recorded Client Recorded Date Recorded By Document 10/28/18 10:55 RB [id number] 10/28/18 10:58 RB 10/28/18 10:55 Wound Center Nurse 1 [Ulcer Assessment] #4 Left Plantar -Combined with other wound No -Current Size (cm) - Length 1 -Current Size (cm) - Width 0.5 -Current Size (cm) - Depth 0.3 -Total Square Cm 0.5 -Photo Taken No -Tunneling No -Undermining/Tunneling Yes -Undermining/Tunneling Starts (O' 12 clock) -Undermining/Tunneling Ends (O'clock) 12 -Maximum Distance (cm) 0.4 -Circular Undermining Yes -Exudate Amt Small -Exudate Type Serosanguineous -Wound Margin Thickened -Granulation Amt Medium (34-66%) -Granulation Quality [place] -Slough/Fibrin Yes -Necrosis Amt Small (1-33%) -Necrotic Tissue Type Adherent Slough -Structure Exposed N/A -Texture (Talisha-wound Skin Appearance) Callus -Moisture (Talisha-wound Skin Appearance Assessed ) -Color (Talisha-wound Skin Appearance) Assessed -Temperature (Talisha-wound Skin No Abnormality Appearance) (Pt Warm) -Tenderness on Palpation (Talisha-wound No Skin Appearance) -Ulcer Cleansing Wound Cleanser -Foul Odor after Cleansing No -Anesthetic Used 5% Lidocaine Gel WC - Nurse 2 - General Ulcer CM Notes Start: 10/28/18 10:55 Freq: Status: Active Protocol: Activity Type Activity Date Activity User E-Sign Co-Sign Detail Recorded Client Recorded Date Recorded By Document 10/28/18 11:42 DV [id number] 10/28/18 11:53 DV 10/28/18 11:42 Wound Center Nurse 2 [Procedure/Treatment] -Time 11:43 -Correct Patient Yes -Correct Side, Site, Position Yes -Correct Procedure Yes -Procedure Performed Yes -Type of Procedure Debridement -Clinical Debridement Subcutaneous -Post Debridement Size (cm) - Length 1.1 -Post Debridement Size (cm) - Width 0.9 -Post Debridement Size (cm) - Depth 0.2 -Total Square Cm 0.99 -Wound/Ulcer Outcome Not Healed -Ulcer Cleansing Rinsed/ Irrigated with Saline -Foul Odor after Cleansing No -Bioengineered Tissue No -Bleeding Controlled with Pressure -Offloading No -Treatment Response Procedure Tolerated Well [See Physician Procedure note for Specifics] Pain Scale: 0-10 Numeric [Pain] -Is Patient Pain Free? Yes Musculoskeletal: No Tenderness to Palpation of Joints or Extremities, Tenderness - Very minor tenderness with manipulation of ulcer site, - - Hammertoe deformities of digits 2?5 of the right and left foot. Bilateral hallux malleus deformities. Neurological: Sensory exam intact to light touch and pain Psych/Mental Status: Normal Affect, Appropriate Debridement Note Post-Debridement Measurements/Treatment - Nurse 2 - General Ulcer CM Notes Start: 10/28/18 10:55 Freq: Status: Active Protocol: Activity Type Activity Date Activity User E-Sign Co-Sign Detail Recorded Client Recorded Date Recorded By Document 10/28/18 11:42 DV [id number] 10/28/18 11:53 DV 10/28/18 11:42 Wound Center Nurse 2 #4 Left Plantar -Time 11:43 -Correct Patient Yes -Correct Side, Site, Position Yes -Correct Procedure Yes -Procedure Performed Yes -Type of Procedure Debridement -Clinical Debridement Subcutaneous -Post Debridement Size (cm) - Length 1.1 -Post Debridement Size (cm) - Width 0.9 -Post Debridement Size (cm) - Depth 0.2 -Total Square Cm 0.99 -Wound/Ulcer Outcome Not Healed -Ulcer Cleansing Rinsed/ Irrigated with Saline -Foul Odor after Cleansing No -Bioengineered Tissue No -Bleeding Controlled with Pressure -Offloading No -Treatment Response Procedure Tolerated Well Pain Scale: 0-10 Numeric Is Patient Pain Free? Yes Wound debrided: Left distal plantar forefoot Laterality: Left Type of Debridement: Excisional debridement Anesthesia Used: 4% Lidocaine Solution Depth: in the subcutaneous layer Percentage of wound debrided: 100 Instrument Used: #15 blade Tissue Removed: Adherent slough, fibrin, hyperkeratotic tissue Severity: Fat Layer Exposed Amount of bleeding with debridement: Mild Bleeding Controlled with: Pressure Patient tolerated procedure well Assessment/Plan Assessment: Ulcer of fat layer exposed to right dorsal second toe. Neuropathy left leg. Other comorbidities Plan: Patient was carefully examined and evaluated again today. Patient missed multiple weeks of appointments in a row. Patient continues to admit to being noncompliant to wearing appropriate shoe gear at all times as instructed. The ulcer site was carefully debrided subcutaneously as noted in the clinical panel again today. Once complete, the site was carefully cleansed and then dressed with Keena followed by dry sterile dressing and Tubigrip for compression. The patient is to change his dressings in this manner daily. The importance of keeping pressure off of the ulcer site was stressed in great detail to the patient today. The importance of proper shoe gear with enough height and width was stressed as well again today. He was instructed to stay away from tight and constricting boots. He admits to walking without any protection to the left plantar foot again this week at times and not utilizing his offloading mechanisms. I stressed the importance of wearing his AFO that he got from [employer], as this has an offloading pocket in the exact area of his ulcer. Patient is non compliant in this and only wears the brace some of the time. We discussed the possibility of having alterations made to this brace if needed in the future. I also discussed the possibility of having the patient in the TCC should I continue to notice non compliance with keeping pressure off of his foot. He was instructed to keep pressure completely off of the ulcer site. LEAS and venous Doppler studies were ordered and the results were reviewed at previous visits. Final report will be placed in the patient's chart. Patient was educated on all signs and symptoms of local and systemic infection and he is instructed to go to the emergency room immediately should he notice any of these. All questions were answered to the patient's satisfaction. He will follow-up in clinic in 1 week to check on progress of ulcer, but was instructed to follow-up sooner if needed.
[2018-11-11 11:19] VITALS: BP 124/72; PULSE 88; RESP 18; TEMP 36.6; BMI 39.9
--- NOTE | 2018-11-11 12:29 | PN.PCM_ITS ---
(1) Chronic ulcer of left foot with fat layer exposed Status: Acute Current Visit: No Code(s): L97.522 - Non-pressure chronic ulcer of other part of left foot with fat layer exposed (2) Other hammer toe(s) (acquired), right foot Status: Acute Current Visit: No Code(s): M20.41 - Other hammer toe(s) (acquired), right foot (3) Other hammer toe(s) (acquired), left foot Status: Acute Current Visit: No Code(s): M20.42 - Other hammer toe(s) (acquired), left foot (4) PVD (peripheral vascular disease) Status: Acute Current Visit: No Code(s): I73.9 - Peripheral vascular disease, unspecified (5) Delayed wound healing Status: Acute Current Visit: No Code(s): T14.8XXD - Other injury of unspecified body region, subsequent encounter Type of Wound Chief Complaint: Ulcer to left plantar foot History of Wound: 63-year-old white male that likes to wear cowboy boots has developed ulcers on his left foot. This has been going on for approximately for months. Patient has a long history of noncompliance with offloading his ulcer sites. 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 Patient also has a lot of autoimmune disorders and is on medications for that. Progress of Wound: Patient presents for follow up of ulcer to left plantar distal forefoot. Patient has missed last weeks appointment again. Patient denies any purulence or extending redness. Patient continues to admit to wearing shoes that are not recommended and cause excess pressure in areas of foot and toes. He feels he has noticed improvement since last visit. Patient denies any feelings of nausea, vomiting, fever, chills. - Physical Exam Vital Signs Temp Pulse Resp BP 98 F 88 18 124/72 H 11/11/18 11:19 11/11/18 11:19 11/11/18 11:11/11/18 11: General: Alert, Oriented x3, Cooperative, No apparent distress Extremities: Capillary Refill Less than 3 Seconds, No Calf Tenderness - Negative Ujni and Kaye signs, Diminished Peripheral Pulses - DP and PT pulses faintly palpable bilateral, Edema - Slight lower extremity edema Skin: Ulcer/ Wound - Ulcer to left distal plantar forefoot with fat layer exposed. Ulcer shows improvement this week. The base is continues to be a mixture of adherent slough, fibrin, granular tissue as well as surrounding hyperkeratotic tissue. There continues to be no probing to bone, no tracking, no undermining, no purulence, no extending or surrounding cellulitis, and no increase in warmth at this time. Slight hyperkeratotic callus appreciated to left dorsal fifth and fourth toes. No ulcers appreciated to these areas upon debridement of hyperkeratotic tissue. Wound Measurements and Assessment - Nurse 1 - General Ulcer Measurement Start: 10/28/18 10:55 Freq: Status: Active Protocol: Activity Type Activity Date Activity User E-Sign Co-Sign Detail Recorded Client Recorded Date Recorded By Document 11/11/18 11:19 MT [id number] 11/11/18 11:21 MT 11/11/18 11:19 Wound Center Nurse 1 [Ulcer Assessment] #4 Left Plantar -Current Size (cm) - Length 0.1 -Current Size (cm) - Width 0.1 -Current Size (cm) - Depth 0.1 -Total Square Cm 0.01 -Epithelialization Large 67-100% -Exudate Amt None Present -Wound Margin Thickened & Rolled Under -Granulation Amt Large (67-100%) -Granulation Quality [place] -Texture (Talisha-wound Skin Appearance) Callus -Temperature (Talisha-wound Skin No Abnormality Appearance) (Pt Warm) -Tenderness on Palpation (Talisha-wound No Skin Appearance) -Ulcer Cleansing Rinsed/ Irrigated with Saline -Foul Odor after Cleansing No -Anesthetic Used 4% Lidocaine Solution [Edema Assessment] -Left Calf (cm) 37 -Left Ankle (cm) 22 - Nurse 2 - General Ulcer CM Notes Start: 10/28/18 10:55 Freq: Status: Active Protocol: Activity Type Activity Date Activity User E-Sign Co-Sign Detail Recorded Client Recorded Date Recorded By Document 11/11/18 11:51 DV [id number] 11/11/18 11:52 DV 11/11/18 11:51 Wound Center Nurse 2 [Procedure/Treatment] #4 Left Plantar -Time 11:51 -Correct Patient Yes -Correct Side, Site, Position Yes -Correct Procedure Yes -Procedure Performed Yes -Type of Procedure Debridement -Clinical Debridement Subcutaneous -Post Debridement Size (cm) - Length 0.4 -Post Debridement Size (cm) - Width 0.3 -Post Debridement Size (cm) - Depth 0.2 -Total Square Cm 0.12 -Wound/Ulcer Outcome Not Healed -Ulcer Cleansing Rinsed/ Irrigated with Saline -Foul Odor after Cleansing No -Bioengineered Tissue No -Bleeding Controlled with Pressure -Offloading No -Treatment Response Procedure Tolerated Well [See Physician Procedure note for Specifics] Pain Scale: 0-10 Numeric [Pain] -Is Patient Pain Free? Yes Musculoskeletal: No Tenderness to Palpation of Joints or Extremities, Tenderness - Very minor tenderness with manipulation of ulcer site, - - Hammertoe deformities of digits 2?5 of the right and left foot. Bilateral hallux malleus deformities. Neurological: Sensory exam intact to light touch and pain Psych/Mental Status: Normal Affect, Appropriate Debridement Note Post-Debridement Measurements/Treatment WC - Nurse 2 - General Ulcer CM Notes Start: 10/28/18 10:55 Freq: Status: Active Protocol: Activity Type Activity Date Activity User E-Sign Co-Sign Detail Recorded Client Recorded Date Recorded By Document 10/28/18 11:42 DV [id number] 10/28/18 11:53 DV Document 11/11/18 11:51 DV [id number] 11/11/18 11:52 DV 10/28/18 11/11/18 11:42 11:51 Wound Center Nurse 2 #4 Left Plantar -Time 11:43 11:51 -Correct Patient Yes Yes -Correct Side, Site, Position Yes Yes -Correct Procedure Yes Yes -Procedure Performed Yes Yes -Type of Procedure Debridement Debridement -Clinical Debridement Subcutaneous Subcutaneous -Post Debridement Size (cm) - Length 1.1 0.4 -Post Debridement Size (cm) - Width 0.9 0.3 -Post Debridement Size (cm) - Depth 0.2 0.2 -Total Square Cm 0.99 0.12 -Wound/Ulcer Outcome Not Healed Not Healed -Ulcer Cleansing Rinsed/ Rinsed/ Irrigated with Irrigated with Saline Saline -Foul Odor after Cleansing No No -Bioengineered Tissue No No -Bleeding Controlled with Pressure Pressure -Offloading No No -Treatment Response Procedure Procedure Tolerated Well Tolerated Well Pain Scale: 0-10 Numeric Is Patient Pain Free? Yes Yes Wound debrided: Left distal plantar forefoot Laterality: Left Type of Debridement: Excisional debridement Anesthesia Used: 4% Lidocaine Solution Depth: in the subcutaneous layer Percentage of wound debrided: 100 Instrument Used: #15 blade, - - Tissue nipper Tissue Removed: Adherent slough, fibrin, hyperkeratotic tissue Severity: Fat Layer Exposed Amount of bleeding with debridement: Mild Bleeding Controlled with: Pressure Patient tolerated procedure well Assessment/Plan Assessment: Ulcer of fat layer exposed to right dorsal second toe. Neuropathy left leg. Other comorbidities Plan: Patient was carefully examined and evaluated again today. Patient missed last week's appointment again. Patient continues to admit to being noncompliant to wearing appropriate shoe gear at all times as instructed. The ulcer site was carefully debrided subcutaneously as noted in the clinical panel again today. Improvement noted this week. Once complete, the site was carefully cleansed and then dressed with Keena followed by dry sterile dressing and Tubigrip for compression. The patient is to change his dressings in this manner daily. The importance of keeping pressure off of the ulcer site was stressed in great detail to the patient today. The importance of proper shoe gear with enough height and width was stressed as well again today. He was instructed to stay away from tight and constricting boots. He admits to walking without any protection to the left plantar foot again this week at times and not utilizing his offloading mechanisms. I stressed the importance of wearing his AFO that he got from [employer], as this has an offloading pocket in the exact area of his ulcer. Patient is non compliant in this and only wears the brace some of the time. We discussed the possibility of having alterations made to this brace if needed in the future. I also discussed the possibility of having the patient in the TCC should I continue to notice non compliance with keeping pressure off of his foot. He was instructed to keep pressure completely off of the ulcer site. LEAS and venous Doppler studies were ordered and the results were reviewed at previous visits. Final report will be placed in the patient's chart. Patient was educated on all signs and symptoms of local and systemic infection and he is instructed to go to the emergency room immediately should he notice any of these. All questions were answered to the patient's satisfaction. He will follow-up in clinic in 1 week to check on progress of ulcer, but was instructed to follow-up sooner if needed.
== END 2018-11-11 23:59 ==
LOC: WC 10:30
PROVIDERS: Family Provider Internal Medicine; PCP Internal Medicine; Referring Provider Podiatrist; Visit Provider Podiatrist
DX: I73.9 Peripheral vascular disease, unspecified (principal); M20.41 Other hammer toe(s) (acquired), right foot; M20.42 Other hammer toe(s) (acquired), left foot; L97.522 Non-pressure chronic ulcer of other part of left foot with fat layer exposed; R60.0 Localized edema; Z91.19 Patient's noncompliance with other medical treatment and regimen; G62.9 Polyneuropathy, unspecified
CPT/HCPCS: 11042

== ENCOUNTER 2018-12-09 10:15 | Outpatient (RCR) | payer MEDICARE, SELFPAY ==
[2018-11-12 00:56] VITALS: BP 124/72; PULSE 88; RESP 18; TEMP 36.6
[2018-11-18 10:02] VITALS: BP 117/61; PULSE 73; RESP 18; TEMP 36.6; BMI 39.9
--- NOTE | 2018-11-18 10:56 | PN.PCM_ITS ---
(1) Chronic ulcer of left foot with fat layer exposed Status: Acute Current Visit: No Code(s): L97.522 - Non-pressure chronic ulcer of other part of left foot with fat layer exposed (2) Other hammer toe(s) (acquired), right foot Status: Acute Current Visit: No Code(s): M20.41 - Other hammer toe(s) (acquired), right foot (3) Other hammer toe(s) (acquired), left foot Status: Acute Current Visit: No Code(s): M20.42 - Other hammer toe(s) (acquired), left foot (4) PVD (peripheral vascular disease) Status: Acute Current Visit: No Code(s): I73.9 - Peripheral vascular disease, unspecified (5) Delayed wound healing Status: Acute Current Visit: No Code(s): T14.8XXD - Other injury of unspecified body region, subsequent encounter Type of Wound Chief Complaint: Ulcer to left plantar foot History of Wound: 63-year-old white male that likes to wear cowboy boots has developed ulcers on his left foot. This has been going on for approximately for months. Patient has a long history of noncompliance with offloading his ulcer sites. 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 Patient also has a lot of autoimmune disorders and is on medications for that. Progress of Wound: Patient presents for follow up of ulcer to left plantar distal forefoot. Patient denies any purulence or extending redness. Patient continues to admit to wearing shoes that are not recommended and cause excess pressure in areas of foot and toes. He feels he has noticed improvement since last visit. Patient denies any feelings of nausea, vomiting, fever, chills. - Physical Exam Vital Signs Temp Pulse Resp BP 98 F 73 18 117/61 11/18/18 10:02 11/18/18 10:02 11/18/18 10:02 11/18/18 10:02 General: Alert, Oriented x3, Cooperative, No apparent distress Extremities: Capillary Refill Less than 3 Seconds, No Calf Tenderness - Negative Juni and Kaye signs, Diminished Peripheral Pulses - DP and PT pulses faintly palpable bilateral, Edema - Slight lower extremity edema Skin: Ulcer/ Wound - Ulcer to left distal plantar forefoot with fat layer exposed. Ulcer shows very minor improvement this week. The base continues to be a mixture of adherent slough, fibrin, granular tissue as well as surrounding hyperkeratotic tissue. There continues to be no probing to bone, no tracking, no undermining, no purulence, no extending or surrounding cellulitis, and no increase in warmth at this time. Slight hyperkeratotic callus appreciated to left dorsal fifth and fourth toes. No ulcers appreciated to these areas upon debridement of hyperkeratotic tissue. Wound Measurements and Assessment - Nurse 1 - General Ulcer Measurement Start: 11/18/18 10:02 Freq: Status: Active Protocol: Activity Type Activity Date Activity User E-Sign Co-Sign Detail Recorded Client Recorded Date Recorded By Document 11/18/18 10:02 MT [id number] 11/18/18 10:06 MT 11/18/18 10:02 Wound Center Nurse 1 [Ulcer Assessment] #4 Left Plantar -Combined with other wound No -Current Size (cm) - Length 0.3 -Current Size (cm) - Width 0.3 -Current Size (cm) - Depth 0.2 -Total Square Cm 0.09 -Photo Taken No -Tunneling No -Undermining/Tunneling No -Circular Undermining No -Exudate Amt Small -Exudate Type Serosanguineous -Wound Margin Thickened & Rolled Under -Granulation Amt Large (67-100%) -Granulation Quality Red -Slough/Fibrin Yes -Necrosis Amt Small (1-33%) -Necrotic Tissue Type Adherent Slough -Texture (Talisha-wound Skin Appearance) Assessed Callus -Moisture (Talisha-wound Skin Appearance Assessed ) -Color (Talisha-wound Skin Appearance) Assessed -Temperature (Talisha-wound Skin No Abnormality Appearance) (Pt Warm) -Tenderness on Palpation (Talisha-wound No Skin Appearance) -Ulcer Cleansing Rinsed/ Irrigated with Saline -Foul Odor after Cleansing No -Anesthetic Used 4% Lidocaine Solution [Edema Assessment] -Lower Limb Edema Present NA - Nurse 2 - General Ulcer CM Notes Start: 11/18/18 10:02 Freq: Status: Active Protocol: Activity Type Activity Date Activity User E-Sign Co-Sign Detail Recorded Client Recorded Date Recorded By Document 11/18/18 10:28 DV [id number] 11/18/18 10:32 DV 11/18/18 10:28 Wound Center Nurse 2 [Procedure/Treatment] #4 Left Plantar -Time 10:30 -Correct Patient Yes -Correct Side, Site, Position Yes -Correct Procedure Yes -Procedure Performed Yes -Type of Procedure Debridement -Clinical Debridement Subcutaneous -Post Debridement Size (cm) - Length 0.3 -Post Debridement Size (cm) - Width 0.3 -Post Debridement Size (cm) - Depth 0.2 -Total Square Cm 0.09 -Wound/Ulcer Outcome Not Healed -Ulcer Cleansing Rinsed/ Irrigated with Saline -Foul Odor after Cleansing No -Bioengineered Tissue No -Bleeding Controlled with Pressure -Offloading No -Treatment Response Procedure Tolerated Well [See Physician Procedure note for Specifics] Pain Scale: 0-10 Numeric [Pain] -Is Patient Pain Free? Yes Musculoskeletal: No Tenderness to Palpation of Joints or Extremities, Tenderness - Very minor tenderness with manipulation of ulcer site, - - Hammertoe deformities of digits 2?5 of the right and left foot. Bilateral hallux malleus deformities. Neurological: Sensory exam intact to light touch and pain Psych/Mental Status: Normal Affect, Appropriate Debridement Note Post-Debridement Measurements/Treatment WC - Nurse 2 - General Ulcer CM Notes Start: 11/18/18 10:02 Freq: Status: Active Protocol: Activity Type Activity Date Activity User E-Sign Co-Sign Detail Recorded Client Recorded Date Recorded By Document 11/18/18 10:28 DV [id number] 11/18/18 10:32 DV 11/18/18 10:28 Wound Center Nurse 2 #4 Left Plantar -Time 10:30 -Correct Patient Yes -Correct Side, Site, Position Yes -Correct Procedure Yes -Procedure Performed Yes -Type of Procedure Debridement -Clinical Debridement Subcutaneous -Post Debridement Size (cm) - Length 0.3 -Post Debridement Size (cm) - Width 0.3 -Post Debridement Size (cm) - Depth 0.2 -Total Square Cm 0.09 -Wound/Ulcer Outcome Not Healed -Ulcer Cleansing Rinsed/ Irrigated with Saline -Foul Odor after Cleansing No -Bioengineered Tissue No -Bleeding Controlled with Pressure -Offloading No -Treatment Response Procedure Tolerated Well Pain Scale: 0-10 Numeric Is Patient Pain Free? Yes Wound debrided: Left distal plantar forefoot Laterality: Left Type of Debridement: Excisional debridement Anesthesia Used: 4% Lidocaine Solution Depth: in the subcutaneous layer Percentage of wound debrided: 100 Instrument Used: #15 blade Tissue Removed: Adherent slough, fibrin, hyperkeratotic tissue Severity: Fat Layer Exposed Amount of bleeding with debridement: Mild Bleeding Controlled with: Pressure Patient tolerated procedure well Assessment/Plan Assessment: Ulcer of fat layer exposed to right dorsal second toe. Neuropathy left leg. Other comorbidities Plan: Patient was carefully examined and evaluated again today. Patient continues to admit to being noncompliant to wearing appropriate shoe gear at all times as instructed. The ulcer site was carefully debrided subcutaneously as noted in the clinical panel again today. Very minor improvement noted this week. Once complete, the site was carefully cleansed and then dressed with Keena followed by dry sterile dressing and Tubigrip for compression. The patient is to change his dressings in this manner daily. The importance of keeping pressure off of the ulcer site was stressed in great detail to the patient today. The importance of proper shoe gear with enough height and width was stressed as well again today. He was instructed to stay away from tight and constricting boots. He admits to walking without any protection to the left plantar foot again this week at times and not utilizing his offloading mechanisms. I stressed the importance of wearing his AFO that he got from [facility], as this has an offloading pocket in the exact area of his ulcer. Patient is non compliant in this and only wears the brace some of the time. We discussed the possibility of having alterations made to this brace if needed in the future. I also discussed the possibility of having the patient in the TCC should I continue to notice non compliance with keeping pressure off of his foot. He was instructed to keep pressure completely off of the ulcer site. Patient was educated on all signs and symptoms of local and systemic infection and he is instructed to go to the emergency room immediately should he notice any of these. All questions were answered to the patient's satisfaction. He will follow-up in clinic in 1 week to check on progress of ulcer, but was instructed to follow-up sooner if needed.
[2018-11-25 10:30] VITALS: BP 136/80; PULSE 75; RESP 18; TEMP 36.7; BMI 39.9
--- NOTE | 2018-11-25 11:31 | PN.PCM_ITS ---
(1) Chronic ulcer of left foot with fat layer exposed Status: Acute Current Visit: No Code(s): L97.522 - Non-pressure chronic ulcer of other part of left foot with fat layer exposed (2) Other hammer toe(s) (acquired), right foot Status: Acute Current Visit: No Code(s): M20.41 - Other hammer toe(s) (acquired), right foot (3) Other hammer toe(s) (acquired), left foot Status: Acute Current Visit: No Code(s): M20.42 - Other hammer toe(s) (acquired), left foot (4) PVD (peripheral vascular disease) Status: Acute Current Visit: No Code(s): I73.9 - Peripheral vascular disease, unspecified (5) Delayed wound healing Status: Acute Current Visit: No Code(s): T14.8XXD - Other injury of unspecified body region, subsequent encounter Type of Wound Chief Complaint: Ulcer to left plantar foot History of Wound: 63-year-old white male that likes to wear cowboy boots has developed ulcers on his left foot. This has been going on for approximately for months. Patient has a long history of noncompliance with offloading his ulcer sites. 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 Patient also has a lot of autoimmune disorders and is on medications for that. Progress of Wound: Patient presents for follow up of ulcer to left plantar distal forefoot. Patient denies any purulence or extending redness. Patient continues to admit to wearing shoes that are not recommended and cause excess pressure in areas of foot and toes. Patient denies any feelings of nausea, vomiting, fever, chills. - Physical Exam Vital Signs Temp Pulse Resp BP 98.1 F 75 18 136/80 H 11/25/18 10:30 11/25/18 10:30 11/25/18 10:30 11/25/18 10:30 General: Alert, Oriented x3, Cooperative, No apparent distress Extremities: Capillary Refill Less than 3 Seconds, No Calf Tenderness - Negative Juni and Kaye signs, Diminished Peripheral Pulses - DP and PT pulses faintly palpable bilateral, Edema - Slight lower extremity edema Skin: Ulcer/ Wound - Ulcer to left distal plantar forefoot with fat layer exposed. Ulcer stable. The base continues to be a mixture of adherent slough, fibrin, granular tissue as well as surrounding hyperkeratotic tissue. There continues to be no probing to bone, no tracking, no undermining, no purulence, no extending or surrounding cellulitis, and no increase in warmth at this time. Slight hyperkeratotic callus appreciated to left dorsal fifth and fourth toes. No ulcers appreciated to these areas upon debridement of hyperkeratotic tissue. Wound Measurements and Assessment WC - Nurse 1 - General Ulcer Measurement Start: 11/18/18 10:02 Freq: Status: Active Protocol: Activity Type Activity Date Activity User E-Sign Co-Sign Detail Recorded Client Recorded Date Recorded By Document 11/25/18 10:30 RB [id number] 11/25/18 10:40 RB 11/25/18 10:30 Wound Center Nurse 1 [Ulcer Assessment] #4 Left Plantar -Combined with other wound No -Current Size (cm) - Length 0.4 -Current Size (cm) - Width 0.5 -Current Size (cm) - Depth 0.2 -Total Square Cm 0.20 -Tunneling No -Undermining/Tunneling No -Circular Undermining No -Exudate Amt Small -Exudate Type Serosanguineous -Wound Margin Distinct, Outline Attached -Granulation Amt Medium (34-66%) -Granulation Quality [place] -Slough/Fibrin Yes -Necrosis Amt Medium (34-66%) -Necrotic Tissue Type Adherent Slough -Structure Exposed N/A -Texture (Talisha-wound Skin Appearance) Callus -Moisture (Talisha-wound Skin Appearance Assessed ) -Color (Talisha-wound Skin Appearance) Assessed -Temperature (Talisha-wound Skin No Abnormality Appearance) (Pt Warm) -Tenderness on Palpation (Talisha-wound No Skin Appearance) -Ulcer Cleansing Rinsed/ Irrigated with Saline -Foul Odor after Cleansing No -Anesthetic Used 5% Lidocaine Gel [Edema Assessment] -Lower Limb Edema Present Yes -Left Calf (cm) 38 -Left Ankle (cm) 21.2 WC - Nurse 2 - General Ulcer CM Notes Start: 11/18/18 10:02 Freq: Status: Active Protocol: Activity Type Activity Date Activity User E-Sign Co-Sign Detail Recorded Client Recorded Date Recorded By Document 11/25/18 11:25 DV [id number] 11/25/18 11:26 DV 11/25/18 11:25 Wound Center Nurse 2 [Procedure/Treatment] #4 Left Plantar -Time 11:25 -Correct Patient Yes -Correct Side, Site, Position Yes -Correct Procedure Yes -Procedure Performed Yes -Type of Procedure Debridement -Clinical Debridement Subcutaneous -Post Debridement Size (cm) - Length 0.3 -Post Debridement Size (cm) - Width 0.2 -Post Debridement Size (cm) - Depth 0.1 -Total Square Cm 0.06 -Wound/Ulcer Outcome Not Healed -Foul Odor after Cleansing No -Bioengineered Tissue No -Bleeding Controlled with Pressure -Offloading Yes -Treatment Response Procedure Tolerated Well [See Physician Procedure note for Specifics] Pain Scale: 0-10 Numeric [Pain] -Is Patient Pain Free? Yes Musculoskeletal: Tenderness - Very minor tenderness with manipulation of ulcer site, - - Hammertoe deformities of digits 2?5 of the right and left foot. Bilateral hallux malleus deformities. Neurological: Sensory exam intact to light touch and pain Psych/Mental Status: Normal Affect, Appropriate Debridement Note Post-Debridement Measurements/Treatment WC - Nurse 2 - General Ulcer CM Notes Start: 11/18/18 10:02 Freq: Status: Active Protocol: Activity Type Activity Date Activity User E-Sign Co-Sign Detail Recorded Client Recorded Date Recorded By Document 11/18/18 10:28 DV [id number] 11/18/18 10:32 DV Document 11/25/18 11:25 DV [id number] 11/25/18 11:26 DV 11/18/18 11/25/18 10:28 11:25 Wound Center Nurse 2 #4 Left Plantar -Time 10:30 11:25 -Correct Patient Yes Yes -Correct Side, Site, Position Yes Yes -Correct Procedure Yes Yes -Procedure Performed Yes Yes -Type of Procedure Debridement Debridement -Clinical Debridement Subcutaneous Subcutaneous -Post Debridement Size (cm) - Length 0.3 0.3 -Post Debridement Size (cm) - Width 0.3 0.2 -Post Debridement Size (cm) - Depth 0.2 0.1 -Total Square Cm 0.09 0.06 -Wound/Ulcer Outcome Not Healed Not Healed -Ulcer Cleansing Rinsed/ Irrigated with Saline -Foul Odor after Cleansing No No -Bioengineered Tissue No No -Bleeding Controlled with Pressure Pressure -Offloading No Yes -Treatment Response Procedure Procedure Tolerated Well Tolerated Well Pain Scale: 0-10 Numeric Is Patient Pain Free? Yes Yes Wound debrided: Left distal plantar forefoot Laterality: Left Type of Debridement: Excisional debridement Anesthesia Used: 4% Lidocaine Solution Depth: in the subcutaneous layer Percentage of wound debrided: 100 Instrument Used: #15 blade Tissue Removed: Adherent slough, fibrin, hyperkeratotic tissue Severity: Fat Layer Exposed Amount of bleeding with debridement: Mild Bleeding Controlled with: Pressure Patient tolerated procedure well Assessment/Plan Assessment: Ulcer of fat layer exposed to right dorsal second toe. Neuropathy left leg. Other comorbidities Plan: Patient was carefully examined and evaluated again today. Patient continues to be noncompliant with wearing appropriate shoe gear at all times as instructed. The ulcer site was carefully debrided subcutaneously as noted in the clinical panel again today. Ulcer stable this week. Once complete, the site was carefully cleansed and then dressed with Keena followed by dry sterile dressing and Tubigrip for compression. The patient is to change his dressings in this manner daily. The importance of keeping pressure off of the ulcer site was stressed in great detail to the patient today. The importance of proper shoe gear with enough height and width was stressed as well again today. He was instructed to stay away from tight and constricting boots. He admits to not utilizing his offloading mechanisms in his AFO. I stressed the importance of wearing his AFO that he got from [employer], as this has an offloading pocket in the exact area of his ulcer. Patient is non compliant in this and only wears the brace some of the time. We discussed the possibility of having alterations made to this brace if needed in the future. I also discussed the possibility of having the patient in the TCC should I continue to notice non compliance with keeping pressure off of his foot. He was instructed to keep pressure completely off of the ulcer site. Patient was educated on all signs and symptoms of local and systemic infection and he is instructed to go to the emergency room immediately should he notice any of these. All questions were answered to the patient's satisfaction. He will follow-up in clinic in 1 week to check on progress of ulcer, but was instructed to follow-up sooner if needed.
[2018-12-02 10:32] VITALS: BP 122/72; PULSE 100; RESP 22; TEMP 37.3; BMI 39.9
--- NOTE | 2018-12-02 12:04 | PN.PCM_ITS ---
(1) Chronic ulcer of left foot with fat layer exposed Status: Acute Current Visit: No Code(s): L97.522 - Non-pressure chronic ulcer of other part of left foot with fat layer exposed (2) Other hammer toe(s) (acquired), right foot Status: Acute Current Visit: No Code(s): M20.41 - Other hammer toe(s) (acquired), right foot (3) Other hammer toe(s) (acquired), left foot Status: Acute Current Visit: No Code(s): M20.42 - Other hammer toe(s) (acquired), left foot (4) PVD (peripheral vascular disease) Status: Acute Current Visit: No Code(s): I73.9 - Peripheral vascular disease, unspecified (5) Delayed wound healing Status: Acute Current Visit: No Code(s): T14.8XXD - Other injury of unspecified body region, subsequent encounter (6) Ulcer of right foot with fat layer exposed Status: Acute Current Visit: Yes Code(s): L97.512 - Non-pressure chronic ulcer of other part of right foot with fat layer exposed Type of Wound Chief Complaint: Ulcer to left plantar foot History of Wound: 63-year-old white male that likes to wear cowboy boots has developed ulcers on his left foot. This has been going on for approximately for months. Patient has a long history of noncompliance with offloading his ulcer sites. 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 Patient also has a lot of autoimmune disorders and is on medications for that. Progress of Wound: Patient presents for follow up of ulcer to left plantar distal forefoot. Patient denies any purulence or extending redness to this area. Patient also relates that this past Thursday he noticed his right 2nd toe was swollen red and had an ulcer open on the end of his toe. He says he went to [facility] and they started the patient on antibiotics Bactrim DS and Keflex. He has been taking these the past two days and says he has noticed improvement in redness and swelling to toe. He denies any purulence. Patient continues to admit to wearing shoes that are not recommended and cause excess pressure in areas of foot and toes. Patient denies any feelings of nausea, vomiting, fever, chills. - Physical Exam Vital Signs Temp Pulse Resp BP 99.1 F 100 22 H 122/72 H 12/02/18 10:32 12/02/18 10:32 12/02/18 10:32 12/02/18 10:32 General: Alert, Oriented x3, Cooperative, No apparent distress Extremities: Capillary Refill Less than 3 Seconds, No Calf Tenderness - Negative Juni and Kaye signs, Diminished Peripheral Pulses - DP and PT pulses faintly palpable bilateral, Edema - Slight lower extremity edema Skin: Ulcer/ Wound - Ulcer to left distal plantar forefoot with fat layer exposed. Ulcer stable. The base continues to be a mixture of adherent slough, fibrin, granular tissue as well as surrounding hyperkeratotic tissue. There continues to be no probing to bone, no tracking, no undermining, no purulence, no extending or surrounding cellulitis, and no increase in warmth at this time. Ulcer to right distal 2nd toe with fat layer exposed. The base is a mixture of adherent slough, fibrin, granular tissue as well as surrounding hyperkeratotic tissue. There is no probing to bone, no tracking, no undermining, no purulence noted today. There is some edema and erythema still appreciated to second toe, but this is much improved over the last couple of days according to the patient. No increase in warmth at this time. Wound Measurements and Assessment WC - Nurse 1 - General Ulcer Measurement Start: 11/18/18 10:02 Freq: Status: Active Protocol: Activity Type Activity Date Activity User E-Sign Co-Sign Detail Recorded Client Recorded Date Recorded By Document 12/02/18 10:32 DL [id number] 12/02/18 10:42 DL 12/02/18 10:32 Wound Center Nurse 1 [Ulcer Assessment] #6 R 2nd toe -Current Size (cm) - Length 0.7 -Current Size (cm) - Width 1.5 -Current Size (cm) - Depth 0.1 -Total Square Cm 1.05 -Photo Taken Yes -Exudate Amt Small -Exudate Type Serosanguineous -Wound Margin Distinct, Outline Attached -Granulation Amt Medium (34-66%) -Granulation Quality [place] -Necrosis Amt Medium (34-66%) -Necrotic Tissue Type Adherent Slough -Structure Exposed N/A -Texture (Talisha-wound Skin Appearance) Localized Edema Scarring -Moisture (Talisha-wound Skin Appearance Dry/Scaly ) -Color (Talisha-wound Skin Appearance) Erythema -Temperature (Talisha-wound Skin No Abnormality Appearance) (Pt Warm) -Tenderness on Palpation (Talisha-wound No Skin Appearance) -Ulcer Cleansing Wound Cleanser -Foul Odor after Cleansing No -Anesthetic Used 4% Lidocaine Solution #4 Left Plantar -Current Size (cm) - Length 0.2 -Current Size (cm) - Width 0.2 -Current Size (cm) - Depth 0.2 -Total Square Cm 0.04 -Photo Taken No -Maximum Distance #2 (cm) 0.2 -Circular Undermining Yes -Exudate Amt None Present -Wound Margin Flat & Intact -Granulation Amt Small (1-33%) -Granulation Quality [place] -Necrosis Amt Small (1-33%) -Necrotic Tissue Type Adherent Slough -Structure Exposed N/A -Texture (Talisha-wound Skin Appearance) Scarring -Moisture (Talisha-wound Skin Appearance Dry/Scaly ) -Color (Talisha-wound Skin Appearance) No Abnormality -Temperature (Talisha-wound Skin No Abnormality Appearance) (Pt Warm) -Tenderness on Palpation (Talisha-wound No Skin Appearance) -Ulcer Cleansing Rinsed/ Irrigated with Saline -Foul Odor after Cleansing No -Anesthetic Used 5% Lidocaine Gel WC - Nurse 2 - General Ulcer CM Notes Start: 11/18/18 10:02 Freq: Status: Active Protocol: Activity Type Activity Date Activity User E-Sign Co-Sign Detail Recorded Client Recorded Date Recorded By Document 12/02/18 10:59 DV [id number] 12/02/18 11:18 DV 12/02/18 10:59 Wound Center Nurse 2 [Procedure/Treatment] #6 R 2nd toe -Time 11:01 -Correct Patient Yes -Correct Side, Site, Position Yes -Correct Procedure Yes -Procedure Performed Yes -Type of Procedure Debridement -Clinical Debridement Subcutaneous -Post Debridement Size (cm) - Length 1.3 -Post Debridement Size (cm) - Width 1.2 -Post Debridement Size (cm) - Depth 0.3 -Total Square Cm 1.56 -Wound/Ulcer Outcome Not Healed -Ulcer Cleansing Rinsed/ Irrigated with Saline -Foul Odor after Cleansing No -Bioengineered Tissue No -Bleeding Controlled with Pressure -Offloading No -Treatment Response Procedure Tolerated Well #4 Left Plantar -Time 11:04 -Correct Patient Yes -Correct Side, Site, Position Yes -Correct Procedure Yes -Procedure Performed Yes -Type of Procedure Debridement -Clinical Debridement Subcutaneous -Post Debridement Size (cm) - Length 0.3 -Post Debridement Size (cm) - Width 0.3 -Post Debridement Size (cm) - Depth 0.1 -Total Square Cm 0.09 -Wound/Ulcer Outcome Not Healed -Ulcer Cleansing Rinsed/ Irrigated with Saline -Foul Odor after Cleansing No -Bioengineered Tissue No -Bleeding Controlled with Pressure -Offloading No -Treatment Response Procedure Tolerated Well [See Physician Procedure note for Specifics] Pain Scale: 0-10 Numeric [Pain] -Is Patient Pain Free? Yes Musculoskeletal: Tenderness - Some minor tenderness with manipulation of ulcer sites, - - Hammertoe deformities of digits 2?5 of the right and left foot. Bilateral hallux malleus deformities. Neurological: Sensory exam intact to light touch and pain Psych/Mental Status: Normal Affect, Appropriate Debridement Note Post-Debridement Measurements/Treatment WC - Nurse 2 - General Ulcer CM Notes Start: 11/18/18 10:02 Freq: Status: Active Protocol: Activity Type Activity Date Activity User E-Sign Co-Sign Detail Recorded Client Recorded Date Recorded By Document 11/18/18 10:28 DV [id number] 11/18/18 10:32 DV Document 11/25/18 11:25 DV [id number] 11/25/18 11:26 DV Document 12/02/18 10:59 DV [id number] 12/02/18 11:18 DV 11/18/18 11/25/18 12/02/18 10:28 11:25 10:59 Wound Center Nurse 2 #6 R 2nd toe -Time 11:01 -Correct Patient Yes -Correct Side, Site, Position Yes -Correct Procedure Yes -Procedure Performed Yes -Type of Procedure Debridement -Clinical Debridement Subcutaneous -Post Debridement Size (cm) - Length 1.3 -Post Debridement Size (cm) - Width 1.2 -Post Debridement Size (cm) - Depth 0.3 -Total Square Cm 1.56 -Wound/Ulcer Outcome Not Healed -Ulcer Cleansing Rinsed/ Irrigated with Saline -Foul Odor after Cleansing No -Bioengineered Tissue No -Bleeding Controlled with Pressure -Offloading No -Treatment Response Procedure Tolerated Well #4 Left Plantar -Time 10:30 11:25 11:04 -Correct Patient Yes Yes Yes -Correct Side, Site, Position Yes Yes Yes -Correct Procedure Yes Yes Yes -Procedure Performed Yes Yes Yes -Type of Procedure Debridement Debridement Debridement -Clinical Debridement Subcutaneous Subcutaneous Subcutaneous -Post Debridement Size (cm) - Length 0.3 0.3 0.3 -Post Debridement Size (cm) - Width 0.3 0.2 0.3 -Post Debridement Size (cm) - Depth 0.2 0.1 0.1 -Total Square Cm 0.09 0.06 0.09 -Wound/Ulcer Outcome Not Healed Not Healed Not Healed -Ulcer Cleansing Rinsed/ Rinsed/ Irrigated with Irrigated with Saline Saline -Foul Odor after Cleansing No No No -Bioengineered Tissue No No No -Bleeding Controlled with Pressure Pressure Pressure -Offloading No Yes No -Treatment Response Procedure Procedure Procedure Tolerated Well Tolerated Well Tolerated Well Pain Scale: 0-10 Numeric Is Patient Pain Free? Yes Yes Yes Wound debrided: Left distal plantar forefoot Laterality: Left Type of Debridement: Excisional debridement Anesthesia Used: 4% Lidocaine Solution Depth: in the subcutaneous layer Percentage of wound debrided: 100 Instrument Used: #15 blade Tissue Removed: Adherent slough, fibrin, hyperkeratotic tissue Severity: Fat Layer Exposed Amount of bleeding with debridement: Mild Bleeding Controlled with: Pressure Patient tolerated procedure well - Additional Wound Wound debrided: Right distal second toe Laterality: Right Type of Debridement: Excisional debridement Anesthesia Used: 4% Lidocaine Solution Depth: in the subcutaneous layer Percentage of wound debrided: 100 Instrument Used: #15 blade Tissue Removed: Adherent slough, fibrin, hyperkeratotic tissue Severity: Fat Layer Exposed Amount of bleeding with debridement: Mild Bleeding Controlled with: Pressure Patient tolerated procedure: Patient tolerated procedure well Assessment/Plan Active Problems Ulcer of right foot with fat layer exposed (Acute) Assessment: Ulcer with fat layer exposed to right distal second toe. Ulcer with fat layer exposed to left distal plantar foot. Neuropathy left leg. Other comorbidities Plan: Patient was carefully examined and evaluated again today. Patient ramírez nues to be noncompliant with wearing appropriate shoe gear at all times as instructed. Patient developed an ulcer to distal right second toe that he noticed on Thursday and was seen in the [place] emergency room. Report faxed over from ER visit which showed patient as having stable vital signs. Patient had x ray taken which was read by radiologist as showing no fracture, dislocation, bone erosion, or periostitis. Patient was discharged home with 10 days worth of Bactrim DS and Cephalexin. Each ulcer site was carefully debrided subcutaneously as noted in the clinical panel today. Once complete, the sites were carefully cleansed and then dressed with Keena followed by dry sterile dressing and Tubigrip for compression. The patient is to change his dressings in this manner daily. Cultures were taken from 2nd toe right foot and sent for aerobic, anaerobic, and mrsa pcr evaluation. Patient to continue with antibiotics from ER visit unless he hears otherwise. Patient also dispensed offloading surgical shoe to wear at all times to his right foot. The importance of keeping pressure off of the ulcer site was stressed in great detail to the patient today. The importance of proper shoe gear with enough height and width was stressed as well again today. He was instructed to stay away from tight and constricting boots. He admits to not utilizing his offloading mechanisms in his AFO. I stressed the importance of wearing his AFO that he got from [place], as this has an offloading pocket in the exact area of his ulcer. Patient is non compliant in this and only wears the brace some of the time. We discussed the possibility of having alterations made to this brace if needed in the future. I also discussed the possibility of having the patient in the [facility] should I continue to notice non compliance with keeping pressure off of his foot. He was instructed to keep pressure completely off of the ulcer sites. Patient was educated on all signs and symptoms of local and systemic infection and he is instructed to go to the emergency room immediately should he notice any of these before his visit next week. All questions were answered to the patient's satisfaction. He will follow-up in clinic in 1 week to check on progress of ulcer, but was instructed to follow-up sooner if needed.
[2018-12-02 16:26] LABS: M R Staph aureus DNA By PCR Negative (Negative); Probe Check PASS; Staph aureus DNA By PCR POSITIVE (Negative)
[2018-12-09 10:28] VITALS: BP 117/79; PULSE 86; RESP 20; TEMP 36.2; BMI 39.9
--- NOTE | 2018-12-09 12:10 | PCM.WC.PN ---
(1) Chronic ulcer of left foot with fat layer exposed Status: Acute Current Visit: No Code(s): L97.522 - Non-pressure chronic ulcer of other part of left foot with fat layer exposed (2) Other hammer toe(s) (acquired), right foot Status: Acute Current Visit: No Code(s): M20.41 - Other hammer toe(s) (acquired), right foot (3) Other hammer toe(s) (acquired), left foot Status: Acute Current Visit: No Code(s): M20.42 - Other hammer toe(s) (acquired), left foot (4) PVD (peripheral vascular disease) Status: Acute Current Visit: No Code(s): I73.9 - Peripheral vascular disease, unspecified (5) Delayed wound healing Status: Acute Current Visit: No Code(s): T14.8XXD - Other injury of unspecified body region, subsequent encounter (6) Ulcer of right foot with fat layer exposed Status: Acute Current Visit: Yes Code(s): L97.512 - Non-pressure chronic ulcer of other part of right foot with fat layer exposed Type of Wound Chief Complaint: Ulcer to left plantar foot History of Wound: 63-year-old white male that likes to wear cowboy boots has developed ulcers on his left foot. This has been going on for approximately for months. Patient has a long history of noncompliance with offloading his ulcer sites. 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 Patient also has a lot of autoimmune disorders and is on medications for that. Progress of Wound: Patient presents for follow up of ulcer to left plantar distal forefoot and distal right 2nd toe. Patient denies any purulence or extending redness to this area. Has continued his antibiotics. Patient continues to be non compliant with keeping pressure off of ulcer sites at all times. Patient denies any feelings of nausea, vomiting, fever, chills. - Physical Exam Vital Signs Temp Pulse Resp BP 97.1 F L 86 20 H 117/79 12/09/18 10:28 12/09/18 10:28 12/09/18 10:28 12/09/18 10:28 General: Alert, Oriented x3, Cooperative, No apparent distress Extremities: Capillary Refill Less than 3 Seconds, No Calf Tenderness - Negative Juni and Kaye signs, Diminished Peripheral Pulses - DP and PT pulses faintly palpable bilateral, Edema - Slight lower extremity edema Skin: Ulcer/ Wound - Ulcer to left distal plantar forefoot with fat layer exposed. Ulcer stable. The base continues to be a mixture of adherent slough, fibrin, granular tissue as well as surrounding hyperkeratotic tissue. There continues to be no probing to bone, no tracking, no undermining, no purulence, no extending or surrounding cellulitis, and no increase in warmth at this time. Ulcer to right distal 2nd toe with fat layer exposed. The base is a mixture of adherent slough, fibrin, granular tissue as well as surrounding hyperkeratotic tissue. There is no probing to bone, no tracking, no undermining, no purulence noted today. There is improved edema and erythema to second toe compared to last week. No increase in warmth. Wound Measurements and Assessment WC - Nurse 1 - General Ulcer Measurement Start: 11/18/18 10:02 Freq: Status: Active Protocol: Activity Type Activity Date Activity User E-Sign Co-Sign Detail Recorded Client Recorded Date Recorded By Document 12/09/18 10:28 DL [id number] 12/09/18 10:33 DL 12/09/18 10:28 Wound Center Nurse 1 [Ulcer Assessment] #6 R 2nd toe -Current Size (cm) - Length 0.7 -Current Size (cm) - Width 0.9 -Current Size (cm) - Depth 0.1 -Total Square Cm 0.63 -Photo Taken No -Exudate Amt None Present -Wound Margin Distinct, Outline Attached -Granulation Amt Small (1-33%) -Granulation Quality [place] -Necrosis Amt Large (67-100%) -Necrotic Tissue Type Adherent Slough -Structure Exposed N/A -Texture (Talisha-wound Skin Appearance) Callus Localized Edema -Moisture (Talisha-wound Skin Appearance Dry/Scaly ) -Color (Talisha-wound Skin Appearance) No Abnormality -Temperature (Talisha-wound Skin No Abnormality Appearance) (Pt Warm) -Tenderness on Palpation (Talisha-wound No Skin Appearance) -Ulcer Cleansing Rinsed/ Irrigated with Saline -Foul Odor after Cleansing No -Anesthetic Used 4% Lidocaine Solution #4 Left Plantar -Current Size (cm) - Length 0.2 -Current Size (cm) - Width 0.2 -Current Size (cm) - Depth 0.1 -Total Square Cm 0.04 -Photo Taken No -Exudate Amt None Present -Wound Margin Thickened -Granulation Amt Small (1-33%) -Granulation Quality Red -Necrosis Amt Small (1-33%) -Necrotic Tissue Type Adherent Slough -Structure Exposed N/A -Texture (Talisha-wound Skin Appearance) Callus Scarring -Moisture (Talisha-wound Skin Appearance Dry/Scaly ) -Color (Talisha-wound Skin Appearance) No Abnormality -Temperature (Talisha-wound Skin No Abnormality Appearance) (Pt Warm) -Tenderness on Palpation (Talisha-wound No Skin Appearance) -Ulcer Cleansing Wound Cleanser -Foul Odor after Cleansing No -Anesthetic Used 4% Lidocaine Solution WC - Nurse 2 - General Ulcer CM Notes Start: 11/18/18 10:02 Freq: Status: Active Protocol: Activity Type Activity Date Activity User E-Sign Co-Sign Detail Recorded Client Recorded Date Recorded By Document 12/09/18 11:00 DV [id number] 12/09/18 11:09 DV 12/09/18 11:00 Wound Center Nurse 2 [Procedure/Treatment] #6 R 2nd toe -Time 11:02 -Correct Patient Yes -Correct Side, Site, Position Yes -Correct Procedure Yes -Procedure Performed Yes -Type of Procedure Debridement -Clinical Debridement Subcutaneous -Post Debridement Size (cm) - Length 0.7 -Post Debridement Size (cm) - Width 0.9 -Post Debridement Size (cm) - Depth 0.3 -Total Square Cm 0.63 -Wound/Ulcer Outcome Not Healed -Ulcer Cleansing Rinsed/ Irrigated with Saline -Foul Odor after Cleansing No -Bioengineered Tissue No -Bleeding Controlled with Pressure -Offloading No -Type of Offloading Surgical Shoe -Treatment Response Procedure Tolerated Well #4 Left Plantar -Time 11:02 -Correct Patient Yes -Correct Side, Site, Position Yes -Correct Procedure Yes -Procedure Performed Yes -Type of Procedure Debridement -Clinical Debridement Subcutaneous -Post Debridement Size (cm) - Length 0.2 -Post Debridement Size (cm) - Width 0.3 -Post Debridement Size (cm) - Depth 0.2 -Total Square Cm 0.06 -Wound/Ulcer Outcome Not Healed -Ulcer Cleansing Rinsed/ Irrigated with Saline -Foul Odor after Cleansing No -Bioengineered Tissue No -Bleeding Controlled with Pressure -Offloading No -Treatment Response Procedure Tolerated Well [See Physician Procedure note for Specifics] Musculoskeletal: Tenderness - Slight tenderness with manipulation of ulcer sites, - - Hammertoe deformities of digits 2?5 of the right and left foot. Bilateral hallux malleus deformities. Neurological: Sensory exam intact to light touch and pain Psych/Mental Status: Normal Affect, Appropriate Debridement Note Post-Debridement Measurements/Treatment WC - Nurse 2 - General Ulcer CM Notes Start: 11/18/18 10:02 Freq: Status: Active Protocol: Activity Type Activity Date Activity User E-Sign Co-Sign Detail Recorded Client Recorded Date Recorded By Document 11/18/18 10:28 DV [id number] 11/18/18 10:32 DV Document 11/25/18 11:25 DV [id number] 11/25/18 11:26 DV Document 12/02/18 10:59 DV [id number] 12/02/18 11:18 DV Document 12/09/18 11:00 DV [id number] 12/09/18 11:09 DV 11/18/18 11/25/18 12/02/18 10:28 11:25 10:59 Wound Center Nurse 2 #6 R 2nd toe -Time 11:01 -Correct Patient Yes -Correct Side, Site, Position Yes -Correct Procedure Yes -Procedure Performed Yes -Type of Procedure Debridement -Clinical Debridement Subcutaneous -Post Debridement Size (cm) - Length 1.3 -Post Debridement Size (cm) - Width 1.2 -Post Debridement Size (cm) - Depth 0.3 -Total Square Cm 1.56 -Wound/Ulcer Outcome Not Healed -Ulcer Cleansing Rinsed/ Irrigated with Saline -Foul Odor after Cleansing No -Bioengineered Tissue No -Bleeding Controlled with Pressure -Offloading No -Type of Offloading -Treatment Response Procedure Tolerated Well #4 Left Plantar -Time 10:30 11:25 11:04 -Correct Patient Yes Yes Yes -Correct Side, Site, Position Yes Yes Yes -Correct Procedure Yes Yes Yes -Procedure Performed Yes Yes Yes -Type of Procedure Debridement Debridement Debridement -Clinical Debridement Subcutaneous Subcutaneous Subcutaneous -Post Debridement Size (cm) - Length 0.3 0.3 0.3 -Post Debridement Size (cm) - Width 0.3 0.2 0.3 -Post Debridement Size (cm) - Depth 0.2 0.1 0.1 -Total Square Cm 0.09 0.06 0.09 -Wound/Ulcer Outcome Not Healed Not Healed Not Healed -Ulcer Cleansing Rinsed/ Rinsed/ Irrigated with Irrigated with Saline Saline -Foul Odor after Cleansing No No No -Bioengineered Tissue No No No -Bleeding Controlled with Pressure Pressure Pressure -Offloading No Yes No -Treatment Response Procedure Procedure Procedure Tolerated Well Tolerated Well Tolerated Well Pain Scale: 0-10 Numeric Is Patient Pain Free? Yes Yes Yes 12/09/18 11:00 Wound Center Nurse 2 #6 R 2nd toe -Time 11:02 -Correct Patient Yes -Correct Side, Site, Position Yes -Correct Procedure Yes -Procedure Performed Yes -Type of Procedure Debridement -Clinical Debridement Subcutaneous -Post Debridement Size (cm) - Length 0.7 -Post Debridement Size (cm) - Width 0.9 -Post Debridement Size (cm) - Depth 0.3 -Total Square Cm 0.63 -Wound/Ulcer Outcome Not Healed -Ulcer Cleansing Rinsed/ Irrigated with Saline -Foul Odor after Cleansing No -Bioengineered Tissue No -Bleeding Controlled with Pressure -Offloading No -Type of Offloading Surgical Shoe -Treatment Response Procedure Tolerated Well #4 Left Plantar -Time 11:02 -Correct Patient Yes -Correct Side, Site, Position Yes -Correct Procedure Yes -Procedure Performed Yes -Type of Procedure Debridement -Clinical Debridement Subcutaneous -Post Debridement Size (cm) - Length 0.2 -Post Debridement Size (cm) - Width 0.3 -Post Debridement Size (cm) - Depth 0.2 -Total Square Cm 0.06 -Wound/Ulcer Outcome Not Healed -Ulcer Cleansing Rinsed/ Irrigated with Saline -Foul Odor after Cleansing No -Bioengineered Tissue No -Bleeding Controlled with Pressure -Offloading No -Treatment Response Procedure Tolerated Well Pain Scale: 0-10 Numeric Is Patient Pain Free? Wound debrided: Left distal plantar forefoot Laterality: Left Type of Debridement: Excisional debridement Anesthesia Used: 4% Lidocaine Solution Depth: in the subcutaneous layer Percentage of wound debrided: 100 Instrument Used: #15 blade Tissue Removed: Adherent slough, fibrin, hyperkeratotic tissue Severity: Fat Layer Exposed Amount of bleeding with debridement: Mild Bleeding Controlled with: Pressure Patient tolerated procedure well - Additional Wound Wound debrided: Right distal second toe Laterality: Right Type of Debridement: Excisional debridement Anesthesia Used: 4% Lidocaine Solution Depth: in the subcutaneous layer Percentage of wound debrided: 100 Instrument Used: #15 blade Tissue Removed: Adherent slough, fibrin, hyperkeratotic tissue Severity: Fat Layer Exposed Amount of bleeding with debridement: Mild Bleeding Controlled with: Pressure Patient tolerated procedure: Patient tolerated procedure well Assessment/Plan Active Problems Ulcer of right foot with fat layer exposed (Acute) Assessment: Ulcer with fat layer exposed to right distal second toe. Ulcer with fat layer exposed to left distal plantar foot. Neuropathy left leg. Other comorbidities Plan: Patient was carefully examined and evaluated again today. Patient continues to be noncompliant with wearing appropriate shoe gear at all times and keeping pressure off of his ulcer sites as instructed. Each ulcer site was carefully debrided subcutaneously as noted in the clinical panel today again. Once complete, the sites were carefully cleansed and then dressed with Keena followed by dry sterile dressing and Tubigrip for compression. The patient is to change his dressings in this manner daily. Patient to continue with antibiotics from ER visit until complete. Patient also dispensed offloading surgical shoe to wear at all times to his right foot. The importance of keeping pressure off of the ulcer site was stressed in great detail to the patient today. The importance of proper shoe gear with enough height and width was stressed as well again today. He was instructed to stay away from tight and constricting boots. He admits to not utilizing his offloading mechanisms in his AFO. I stressed the importance of wearing his AFO that he got from [employer], as this has an offloading pocket in the exact area of his ulcer. Patient is non compliant in this and only wears the brace some of the time. We discussed the possibility of having alterations made to this brace if needed in the future. I also discussed the possibility of having the patient in the [facility] should I continue to notice non compliance with keeping pressure off of his foot. He was instructed to keep pressure completely off of the ulcer sites. Patient was educated on all signs and symptoms of local and systemic infection and he is instructed to go to the emergency room immediately should he notice any of these before his visit next week. All questions were answered to the patient's satisfaction. He will follow-up in clinic in 1 week to check on progress of ulcer, but was instructed to follow-up sooner if needed.
--- NOTE | 2018-12-09 12:14 | PN.PCM_ITS ---
(1) Chronic ulcer of left foot with fat layer exposed Status: Acute Current Visit: No Code(s): L97.522 - Non-pressure chronic ulcer of other part of left foot with fat layer exposed (2) Other hammer toe(s) (acquired), right foot Status: Acute Current Visit: No Code(s): M20.41 - Other hammer toe(s) (acquired), right foot (3) Other hammer toe(s) (acquired), left foot Status: Acute Current Visit: No Code(s): M20.42 - Other hammer toe(s) (acquired), left foot (4) PVD (peripheral vascular disease) Status: Acute Current Visit: No Code(s): I73.9 - Peripheral vascular disease, unspecified (5) Delayed wound healing Status: Acute Current Visit: No Code(s): T14.8XXD - Other injury of unspecified body region, subsequent encounter (6) Ulcer of right foot with fat layer exposed Status: Acute Current Visit: Yes Code(s): L97.512 - Non-pressure chronic ulcer of other part of right foot with fat layer exposed Type of Wound Chief Complaint: Ulcer to left plantar foot History of Wound: 63-year-old white male that likes to wear cowboy boots has developed ulcers on his left foot. This has been going on for approximately for months. Patient has a long history of noncompliance with offloading his ulcer sites. 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 Patient also has a lot of autoimmune disorders and is on medications for that. Progress of Wound: Patient presents for follow up of ulcer to left plantar distal forefoot and distal right 2nd toe. Patient denies any purulence or extending redness to this area. Has continued his antibiotics. Patient continues to be non compliant with keeping pressure off of ulcer sites at all times. Patient denies any feelings of nausea, vomiting, fever, chills. - Physical Exam Vital Signs Temp Pulse Resp BP 97.1 F L 86 20 H 117/79 12/09/18 10:28 12/09/18 10:28 12/09/18 10:28 12/09/18 10:28 General: Alert, Oriented x3, Cooperative, No apparent distress Extremities: Capillary Refill Less than 3 Seconds, No Calf Tenderness - Negative Juni and Kaye signs, Diminished Peripheral Pulses - DP and PT pulses faintly palpable bilateral, Edema - Slight lower extremity edema Skin: Ulcer/ Wound - Ulcer to left distal plantar forefoot with fat layer exposed. Ulcer stable. The base continues to be a mixture of adherent slough, fibrin, granular tissue as well as surrounding hyperkeratotic tissue. There continues to be no probing to bone, no tracking, no undermining, no purulence, no extending or surrounding cellulitis, and no increase in warmth at this time. Ulcer to right distal 2nd toe with fat layer exposed. The base is a mixture of adherent slough, fibrin, granular tissue as well as surrounding hyperkeratotic tissue. There is no probing to bone, no tracking, no undermining, no purulence noted today. There is improved edema and erythema to second toe compared to last week. No increase in warmth. Wound Measurements and Assessment WC - Nurse 1 - General Ulcer Measurement Start: 11/18/18 10:02 Freq: Status: Active Protocol: Activity Type Activity Date Activity User E-Sign Co-Sign Detail Recorded Client Recorded Date Recorded By Document 12/09/18 10:28 DL [id number] 12/09/18 10:33 DL 12/09/18 10:28 Wound Center Nurse 1 [Ulcer Assessment] #6 R 2nd toe -Current Size (cm) - Length 0.7 -Current Size (cm) - Width 0.9 -Current Size (cm) - Depth 0.1 -Total Square Cm 0.63 -Photo Taken No -Exudate Amt None Present -Wound Margin Distinct, Outline Attached -Granulation Amt Small (1-33%) -Granulation Quality Rugby -Necrosis Amt Large (67-100%) -Necrotic Tissue Type Adherent Slough -Structure Exposed N/A -Texture (Talisha-wound Skin Appearance) Callus Localized Edema -Moisture (Talisha-wound Skin Appearance Dry/Scaly ) -Color (Talisha-wound Skin Appearance) No Abnormality -Temperature (Talisha-wound Skin No Abnormality Appearance) (Pt Warm) -Tenderness on Palpation (Talisha-wound No Skin Appearance) -Ulcer Cleansing Rinsed/ Irrigated with Saline -Foul Odor after Cleansing No -Anesthetic Used 4% Lidocaine Solution #4 Left Plantar -Current Size (cm) - Length 0.2 -Current Size (cm) - Width 0.2 -Current Size (cm) - Depth 0.1 -Total Square Cm 0.04 -Photo Taken No -Exudate Amt None Present -Wound Margin Thickened -Granulation Amt Small (1-33%) -Granulation Quality Red -Necrosis Amt Small (1-33%) -Necrotic Tissue Type Adherent Slough -Structure Exposed N/A -Texture (Talisha-wound Skin Appearance) Callus Scarring -Moisture (Talisha-wound Skin Appearance Dry/Scaly ) -Color (Talisha-wound Skin Appearance) No Abnormality -Temperature (Talisha-wound Skin No Abnormality Appearance) (Pt Warm) -Tenderness on Palpation (Talisha-wound No Skin Appearance) -Ulcer Cleansing Wound Cleanser -Foul Odor after Cleansing No -Anesthetic Used 4% Lidocaine Solution WC - Nurse 2 - General Ulcer CM Notes Start: 11/18/18 10:02 Freq: Status: Active Protocol: Activity Type Activity Date Activity User E-Sign Co-Sign Detail Recorded Client Recorded Date Recorded By Document 12/09/18 11:00 DV [id number] 12/09/18 11:09 DV 12/09/18 11:00 Wound Center Nurse 2 [Procedure/Treatment] #6 R 2nd toe -Time 11:02 -Correct Patient Yes -Correct Side, Site, Position Yes -Correct Procedure Yes -Procedure Performed Yes -Type of Procedure Debridement -Clinical Debridement Subcutaneous -Post Debridement Size (cm) - Length 0.7 -Post Debridement Size (cm) - Width 0.9 -Post Debridement Size (cm) - Depth 0.3 -Total Square Cm 0.63 -Wound/Ulcer Outcome Not Healed -Ulcer Cleansing Rinsed/ Irrigated with Saline -Foul Odor after Cleansing No -Bioengineered Tissue No -Bleeding Controlled with Pressure -Offloading No -Type of Offloading Surgical Shoe -Treatment Response Procedure Tolerated Well #4 Left Plantar -Time 11:02 -Correct Patient Yes -Correct Side, Site, Position Yes -Correct Procedure Yes -Procedure Performed Yes -Type of Procedure Debridement -Clinical Debridement Subcutaneous -Post Debridement Size (cm) - Length 0.2 -Post Debridement Size (cm) - Width 0.3 -Post Debridement Size (cm) - Depth 0.2 -Total Square Cm 0.06 -Wound/Ulcer Outcome Not Healed -Ulcer Cleansing Rinsed/ Irrigated with Saline -Foul Odor after Cleansing No -Bioengineered Tissue No -Bleeding Controlled with Pressure -Offloading No -Treatment Response Procedure Tolerated Well [See Physician Procedure note for Specifics] Musculoskeletal: Tenderness - Slight tenderness with manipulation of ulcer sites, - - Hammertoe deformities of digits 2?5 of the right and left foot. Bilateral hallux malleus deformities. Neurological: Sensory exam intact to light touch and pain Psych/Mental Status: Normal Affect, Appropriate Debridement Note Post-Debridement Measurements/Treatment WC - Nurse 2 - General Ulcer CM Notes Start: 11/18/18 10:02 Freq: Status: Active Protocol: Activity Type Activity Date Activity User E-Sign Co-Sign Detail Recorded Client Recorded Date Recorded By Document 11/18/18 10:28 DV [id number] 11/18/18 10:32 DV Document 11/25/18 11:25 DV [id number] 11/25/18 11:26 DV Document 12/02/18 10:59 DV [id number] 12/02/18 11:18 DV Document 12/09/18 11:00 DV [id number] 12/09/18 11:09 DV 11/18/18 11/25/18 12/02/18 10:28 11:25 10:59 Wound Center Nurse 2 #6 R 2nd toe -Time 11:01 -Correct Patient Yes -Correct Side, Site, Position Yes -Correct Procedure Yes -Procedure Performed Yes -Type of Procedure Debridement -Clinical Debridement Subcutaneous -Post Debridement Size (cm) - Length 1.3 -Post Debridement Size (cm) - Width 1.2 -Post Debridement Size (cm) - Depth 0.3 -Total Square Cm 1.56 -Wound/Ulcer Outcome Not Healed -Ulcer Cleansing Rinsed/ Irrigated with Saline -Foul Odor after Cleansing No -Bioengineered Tissue No -Bleeding Controlled with Pressure -Offloading No -Type of Offloading -Treatment Response Procedure Tolerated Well #4 Left Plantar -Time 10:30 11:25 11:04 -Correct Patient Yes Yes Yes -Correct Side, Site, Position Yes Yes Yes -Correct Procedure Yes Yes Yes -Procedure Performed Yes Yes Yes -Type of Procedure Debridement Debridement Debridement -Clinical Debridement Subcutaneous Subcutaneous Subcutaneous -Post Debridement Size (cm) - Length 0.3 0.3 0.3 -Post Debridement Size (cm) - Width 0.3 0.2 0.3 -Post Debridement Size (cm) - Depth 0.2 0.1 0.1 -Total Square Cm 0.09 0.06 0.09 -Wound/Ulcer Outcome Not Healed Not Healed Not Healed -Ulcer Cleansing Rinsed/ Rinsed/ Irrigated with Irrigated with Saline Saline -Foul Odor after Cleansing No No No -Bioengineered Tissue No No No -Bleeding Controlled with Pressure Pressure Pressure -Offloading No Yes No -Treatment Response Procedure Procedure Procedure Tolerated Well Tolerated Well Tolerated Well Pain Scale: 0-10 Numeric Is Patient Pain Free? Yes Yes Yes 12/09/18 11:00 Wound Center Nurse 2 #6 R 2nd toe -Time 11:02 -Correct Patient Yes -Correct Side, Site, Position Yes -Correct Procedure Yes -Procedure Performed Yes -Type of Procedure Debridement -Clinical Debridement Subcutaneous -Post Debridement Size (cm) - Length 0.7 -Post Debridement Size (cm) - Width 0.9 -Post Debridement Size (cm) - Depth 0.3 -Total Square Cm 0.63 -Wound/Ulcer Outcome Not Healed -Ulcer Cleansing Rinsed/ Irrigated with Saline -Foul Odor after Cleansing No -Bioengineered Tissue No -Bleeding Controlled with Pressure -Offloading No -Type of Offloading Surgical Shoe -Treatment Response Procedure Tolerated Well #4 Left Plantar -Time 11:02 -Correct Patient Yes -Correct Side, Site, Position Yes -Correct Procedure Yes -Procedure Performed Yes -Type of Procedure Debridement -Clinical Debridement Subcutaneous -Post Debridement Size (cm) - Length 0.2 -Post Debridement Size (cm) - Width 0.3 -Post Debridement Size (cm) - Depth 0.2 -Total Square Cm 0.06 -Wound/Ulcer Outcome Not Healed -Ulcer Cleansing Rinsed/ Irrigated with Saline -Foul Odor after Cleansing No -Bioengineered Tissue No -Bleeding Controlled with Pressure -Offloading No -Treatment Response Procedure Tolerated Well Pain Scale: 0-10 Numeric Is Patient Pain Free? Wound debrided: Left distal plantar forefoot Laterality: Left Type of Debridement: Excisional debridement Anesthesia Used: 4% Lidocaine Solution Depth: in the subcutaneous layer Percentage of wound debrided: 100 Instrument Used: #15 blade Tissue Removed: Adherent slough, fibrin, hyperkeratotic tissue Severity: Fat Layer Exposed Amount of bleeding with debridement: Mild Bleeding Controlled with: Pressure Patient tolerated procedure well - Additional Wound Wound debrided: Right distal second toe Laterality: Right Type of Debridement: Excisional debridement Anesthesia Used: 4% Lidocaine Solution Depth: in the subcutaneous layer Percentage of wound debrided: 100 Instrument Used: #15 blade Tissue Removed: Adherent slough, fibrin, hyperkeratotic tissue Severity: Fat Layer Exposed Amount of bleeding with debridement: Mild Bleeding Controlled with: Pressure Patient tolerated procedure: Patient tolerated procedure well Assessment/Plan Active Problems Ulcer of right foot with fat layer exposed (Acute) Assessment: Ulcer with fat layer exposed to right distal second toe. Ulcer with fat layer exposed to left distal plantar foot. Neuropathy left leg. Other comorbidities Plan: Patient was carefully examined and evaluated again today. Patient continues to be noncompliant with wearing appropriate shoe gear at all times and keeping pressure off of his ulcer sites as instructed. Each ulcer site was carefully debrided subcutaneously as noted in the clinical panel today again. Once complete, the sites were carefully cleansed and then dressed with Keena followed by dry sterile dressing and Tubigrip for compression. The patient is to change his dressings in this manner daily. Patient to continue with a ntibiotics from ER visit until complete. Patient also dispensed offloading surgical shoe to wear at all times to his right foot. The importance of keeping pressure off of the ulcer site was stressed in great detail to the patient today. The importance of proper shoe gear with enough height and width was stressed as well again today. He was instructed to stay away from tight and constricting boots. He admits to not utilizing his offloading mechanisms in his AFO. I stressed the importance of wearing his AFO that he got from [employer], as this has an offloading pocket in the exact area of his ulcer. Patient is non compliant in this and only wears the brace some of the time. We discussed the possibility of having alterations made to this brace if needed in the future. I also discussed the possibility of having the patient in the [facility] should I continue to notice non compliance with keeping pressure off of his foot. He was instructed to keep pressure completely off of the ulcer sites. Patient was educated on all signs and symptoms of local and systemic infection and he is instructed to go to the emergency room immediately should he notice any of these before his visit next week. All questions were answered to the patient's satisfaction. He will follow-up in clinic in 1 week to check on progress of ulcer, but was instructed to follow-up sooner if needed.
== END 2018-12-12 23:59 ==
LOC: WC 10:15
PROVIDERS: Family Provider Internal Medicine; PCP Internal Medicine; Referring Provider Podiatrist; Visit Provider Podiatrist
DX: I73.9 Peripheral vascular disease, unspecified (principal); L97.522 Non-pressure chronic ulcer of other part of left foot with fat layer exposed; R60.0 Localized edema; Z91.19 Patient's noncompliance with other medical treatment and regimen; G62.9 Polyneuropathy, unspecified; M20.41 Other hammer toe(s) (acquired), right foot; M20.42 Other hammer toe(s) (acquired), left foot; L97.512 Non-pressure chronic ulcer of other part of right foot with fat layer exposed
CPT/HCPCS: 11042; 87070; 87075; 87077; 87186; 87205; 87640

== ENCOUNTER → 2018-12-13 13:55 | Outpatient (CLI) | payer MEDICARE, SELFPAY ==
[2018-12-09 10:28] VITALS: BMI 39.9
[2018-12-13 16:16] LABS: Absolute Lymphocyte Count 1.42 X10^3/ul (0.83-4.51); Absolute Neutrophil Count 4.6 X10^3/uL (2.0-7.7); Basophil# 0.05 X10^3/uL; Basophil% 0.7 % (0-1); Eosinophils% 2.8 % (0-5); Hematocrit 44.3 % (40-54); Hemoglobin 14.3 g/dl (13.0-16.5); Lymphocyte # 1.42 X10^3/ul (4.0); Lymphocyte % 20.2 % (19-41); Mean Corp Hgb Conc 32.3 g/gl (32-36); Mean Corpuscular Hgb 30.5 pg (27.0-32.0); Mean Corpuscular Volume 94.5 fL (80-94); Mean Platelet Vol. 10.3 fl (6.2-12.0); Monocyte# 0.75 X10^3/uL; Monocyte% 10.7 % (0-10); Neutrophil # 4.61 X10^3/uL (2.7-7.7); Neutrophil % 65.5 % (47-70); Platelet Count 293 K/mm3 (150-450); RBC Distribution Width CV 13.8 % (11.6-14.6); RBC Distribution Width SD 45.6 fl (35.1-43.9); Red Blood Count 4.69 M/mm3 (4.6-6.2)
[2018-12-13 16:17] LABS: POSITIVE COUNT NO; POSITIVE DIFFERENTIAL NO; POSITIVE MORPHOLOGY NO
[2018-12-13 17:00] LABS: AST(SGOT) 20 U/L (15-37); Alanine Aminotransfer ALT/SGPT 25 U/L (16-61); Albumin, Serum 3.6 g/dL (3.2-5.0); Alkaline Phosphatase 74 U/L (45-117); Anion Gap 6 (5-15); BUN 17 mg/dL (7-18); BUN/Creat Ratio 13.1 RATIO (10-20); Bilirubin, Direct 0.07 mg/dL (0.00-0.30); Calcium,Total 8.5 mg/dL (8.5-10.1); Chloride 108 mmol/L (98-107); Cholesterol 196 mg/dL (200); EST Glomerular Filtration Rate 59 mL/min (>60); Est Glom Filt Rate - Afr Amer 72 mL/min (>60); Glucose 100 mg/dL (74-106); High Density Lipoprotein 40 mg/dL; Potassium 4.3 mmol/L (3.5-5.1); Protein, Total 7.6 g/dL (6.4-8.2); Sodium Level 142 mmol/L (136-145); Triglycerides 220 mg/dL; Very Low Density Lipoprotein 44 mg/dL (5-40)
[2018-12-15 20:06] LABS: HEPATITIS B SURFACE AG Negative (Negative); QNTFERON TB Mitogen Value > 10.00 IU/mL (.); QNTFERON TB Nil Value 0.02 IU/mL (.); QNTFERON TB1+ Ag Value 0.02 IU/mL (.); QNTFERON TB2+ Ag Value 0.02 IU/mL (.)
[2018-12-16 14:15] LABS: Hep B Surface Antibodies Non Reactive (.); Hep C Antibodies <0.1 s/co ratio (0.0-0.9); Hepatitis B Core AB IgM Negative (Negative)
[2018-12-16 14:17] LABS: QNTIFERON TB Positive Criteria Negative (Negative)
== END ==
PROVIDERS: Referring Provider Dermatology Pediatric Dermatology; Visit Provider Dermatology Pediatric Dermatology
DX: L40.0 Psoriasis vulgaris (principal); L03.031 Cellulitis of right toe; Z79.899 Other long term (current) drug therapy
CPT/HCPCS: 36415; 80048; 80061; 80076; 85025; 86480; 86705; 86706; 86803; 87340

== ENCOUNTER 2019-01-06 10:30 | Outpatient (RCR) | payer MEDICARE, SELFPAY ==
[2018-12-13 00:50] VITALS: BP 117/79; PULSE 86; RESP 20; TEMP 36.2
[2018-12-16 11:15] VITALS: BP 129/81; PULSE 88; RESP 18; TEMP 36.9; BMI 39.9
--- NOTE | 2018-12-16 12:50 | PN.PCM_ITS ---
(1) Chronic ulcer of left foot with fat layer exposed Status: Acute Current Visit: No Code(s): L97.522 - Non-pressure chronic ulcer of other part of left foot with fat layer exposed (2) Ulcer of right foot with fat layer exposed Status: Acute Current Visit: No Code(s): L97.512 - Non-pressure chronic ulcer of other part of right foot with fat layer exposed (3) Other hammer toe(s) (acquired), right foot Status: Acute Current Visit: No Code(s): M20.41 - Other hammer toe(s) (acquired), right foot (4) Other hammer toe(s) (acquired), left foot Status: Acute Current Visit: No Code(s): M20.42 - Other hammer toe(s) (acquired), left foot (5) PVD (peripheral vascular disease) Status: Acute Current Visit: No Code(s): I73.9 - Peripheral vascular disease, unspecified Type of Wound Chief Complaint: Ulcer to left plantar foot History of Wound: 63-year-old white male that likes to wear cowboy boots has developed ulcers on his left foot. This has been going on for approximately for months. Patient has a long history of noncompliance with offloading his ulcer sites. 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 Patient also has a lot of autoimmune disorders and is on medications for that. Progress of Wound: Patient presents for follow up of ulcer to left plantar distal forefoot and distal right 2nd toe. Patient denies any purulence or extending redness to this area. Patient continues to be non compliant with keeping pressure off of ulcer sites at all times. Patient denies any feelings of nausea, vomiting, fever, chills. - Physical Exam Vital Signs Temp Pulse Resp BP 98.4 F 88 18 129/81 H 12/16/18 11:15 12/16/18 11:15 12/16/18 11:15 12/16/18 11:15 General: Alert, Oriented x3, Cooperative, No apparent distress Extremities: Capillary Refill Less than 3 Seconds, No Calf Tenderness, Diminished Peripheral Pulses - DP and PT pulses faintly palpable bilateral, Edema - Slight lower extremity edema Skin: Ulcer/ Wound - Ulcer to left distal plantar forefoot with fat layer exposed. The base continues to be a mixture of adherent slough, fibrin, granular tissue as well as surrounding hyperkeratotic tissue. There continues to be no probing to bone, no tracking, no undermining, no purulence, no extending or surrounding cellulitis, and no increase in warmth at this time. Ulcer to right distal 2nd toe with fat layer exposed. The base is a mixture of adherent slough, fibrin, granular tissue as well as surrounding hyperkeratotic tissue. There is no probing to bone, no tracking, no undermining, no purulence noted today. There is improved edema and erythema to second toe compared to last week again. No increase in warmth. Wound Measurements and Assessment WC - Nurse 1 - General Ulcer Measurement Start: 12/16/18 11:15 Freq: Status: Active Protocol: Activity Type Activity Date Activity User E-Sign Co-Sign Detail Recorded Client Recorded Date Recorded By Document 12/16/18 11:15 RB [id number] 12/16/18 11:20 RB 12/16/18 11:15 Wound Center Nurse 1 [Ulcer Assessment] #6 R 2nd toe -Combined with other wound No -Current Size (cm) - Length 0.1 -Current Size (cm) - Width 0.1 -Current Size (cm) - Depth 0.1 -Total Square Cm 0.01 -Tunneling No -Undermining/Tunneling No -Circular Undermining No -Exudate Amt None Present -Wound Margin Distinct, Outline Attached -Granulation Amt Large (67-100%) -Granulation Quality [place] -Slough/Fibrin Yes -Necrosis Amt Small (1-33%) -Necrotic Tissue Type Adherent Slough -Structure Exposed N/A -Texture (Talisha-wound Skin Appearance) Assessed Callus -Moisture (Talisha-wound Skin Appearance Assessed ) -Color (Talisha-wound Skin Appearance) Assessed -Temperature (Talisha-wound Skin No Abnormality Appearance) (Pt Warm) -Tenderness on Palpation (Talisha-wound No Skin Appearance) -Ulcer Cleansing Rinsed/ Irrigated with Saline -Foul Odor after Cleansing No -Anesthetic Used 4% Lidocaine Solution #4 Left Plantar -Combined with other wound No -Current Size (cm) - Length 0.1 -Current Size (cm) - Width 0.1 -Current Size (cm) - Depth 0.1 -Total Square Cm 0.01 -Tunneling No -Undermining/Tunneling No -Circular Undermining No -Exudate Amt None Present -Wound Margin Distinct, Outline Attached -Granulation Amt Large (67-100%) -Granulation Quality [place] -Slough/Fibrin Yes -Necrosis Amt Small (1-33%) -Necrotic Tissue Type Adherent Slough -Structure Exposed Fat Layer Exposed -Texture (Talisha-wound Skin Appearance) Callus -Moisture (Talisha-wound Skin Appearance Assessed ) -Color (Talisha-wound Skin Appearance) Assessed -Temperature (Talisha-wound Skin No Abnormality Appearance) (Pt Warm) -Tenderness on Palpation (Talisha-wound No Skin Appearance) -Ulcer Cleansing Rinsed/ Irrigated with Saline -Foul Odor after Cleansing No -Anesthetic Used 4% Lidocaine Solution WC - Nurse 2 - General Ulcer CM Notes Start: 12/16/18 11:15 Freq: Status: Active Protocol: Activity Type Activity Date Activity User E-Sign Co-Sign Detail Recorded Client Recorded Date Recorded By Document 12/16/18 11:33 DV [id number] 12/16/18 11:36 DV 12/16/18 11:33 Wound Center Nurse 2 [Procedure/Treatment] #6 R 2nd toe -Time 11:34 -Correct Patient Yes -Correct Side, Site, Position Yes -Correct Procedure Yes -Procedure Performed Yes -Type of Procedure Debridement -Clinical Debridement Subcutaneous -Post Debridement Size (cm) - Length 0.6 -Post Debridement Size (cm) - Width 0.6 -Post Debridement Size (cm) - Depth 0.2 -Total Square Cm 0.36 -Wound/Ulcer Outcome Not Healed -Ulcer Cleansing Rinsed/ Irrigated with Saline -Foul Odor after Cleansing No -Bioengineered Tissue No -Bleeding Controlled with Pressure -Offloading No -Treatment Response Procedure Tolerated Well #4 Left Plantar -Time 11:35 -Correct Patient Yes -Correct Side, Site, Position Yes -Correct Procedure Yes -Procedure Performed Yes -Type of Procedure Debridement -Clinical Debridement Subcutaneous -Post Debridement Size (cm) - Length 0.2 -Post Debridement Size (cm) - Width 0.2 -Post Debridement Size (cm) - Depth 0.2 -Total Square Cm 0.04 -Wound/Ulcer Outcome Not Healed -Ulcer Cleansing Rinsed/ Irrigated with Saline -Foul Odor after Cleansing No -Bioengineered Tissue No -Bleeding Controlled with Pressure -Offloading No -Treatment Response Procedure Tolerated Well [See Physician Procedure note for Specifics] Pain Scale: 0-10 Numeric [Pain] -Is Patient Pain Free? Yes Musculoskeletal: Tenderness - Slight tenderness with manipulation of ulcer sites, - - Hammertoe deformities of digits 2?5 of the right and left foot. Bilateral hallux malleus deformities. Neurological: Sensory exam intact to light touch and pain Psych/Mental Status: Normal Affect, Appropriate Debridement Note Post-Debridement Measurements/Treatment WC - Nurse 2 - General Ulcer CM Notes Start: 12/16/18 11:15 Freq: Status: Active Protocol: Activity Type Activity Date Activity User E-Sign Co-Sign Detail Recorded Client Recorded Date Recorded By Document 12/16/18 11:33 DV [id number] 12/16/18 11:36 DV 12/16/18 11:33 Wound Center Nurse 2 #6 R 2nd toe -Time 11:34 -Correct Patient Yes -Correct Side, Site, Position Yes -Correct Procedure Yes -Procedure Performed Yes -Type of Procedure Debridement -Clinical Debridement Subcutaneous -Post Debridement Size (cm) - Length 0.6 -Post Debridement Size (cm) - Width 0.6 -Post Debridement Size (cm) - Depth 0.2 -Total Square Cm 0.36 -Wound/Ulcer Outcome Not Healed -Ulcer Cleansing Rinsed/ Irrigated with Saline -Foul Odor after Cleansing No -Bioengineered Tissue No -Bleeding Controlled with Pressure -Offloading No -Treatment Response Procedure Tolerated Well #4 Left Plantar -Time 11:35 -Correct Patient Yes -Correct Side, Site, Position Yes -Correct Procedure Yes -Procedure Performed Yes -Type of Procedure Debridement -Clinical Debridement Subcutaneous -Post Debridement Size (cm) - Length 0.2 -Post Debridement Size (cm) - Width 0.2 -Post Debridement Size (cm) - Depth 0.2 -Total Square Cm 0.04 -Wound/Ulcer Outcome Not Healed -Ulcer Cleansing Rinsed/ Irrigated with Saline -Foul Odor after Cleansing No -Bioengineered Tissue No -Bleeding Controlled with Pressure -Offloading No -Treatment Response Procedure Tolerated Well Pain Scale: 0-10 Numeric Is Patient Pain Free? Yes Wound debrided: Left distal plantar forefoot Laterality: Left Type of Debridement: Excisional debridement Anesthesia Used: 4% Lidocaine Solution Depth: in the subcutaneous layer Percentage of wound debrided: 100 Instrument Used: #15 blade Tissue Removed: Adherent slough, fibrin, hyperkeratotic tissue Severity: Fat Layer Exposed Amount of bleeding with debridement: Mild Bleeding Controlled with: Pressure Patient tolerated procedure well - Additional Wound Wound debrided: Right distal second toe Laterality: Right Type of Debridement: Excisional debridement Anesthesia Used: 4% Lidocaine Solution Depth: in the subcutaneous layer Percentage of wound debrided: 100 Instrument Used: #15 blade Tissue Removed: Adherent slough, fibrin, hyperkeratotic tissue Severity: Fat Layer Exposed Amount of bleeding with debridement: Mild Bleeding Controlled with: Pressure Patient tolerated procedure: Patient tolerated procedure well Assessment/Plan Assessment: Ulcer with fat layer exposed to right distal second toe. Ulcer with fat layer exposed to left distal plantar foot. Neuropathy left leg. Other comorbidities Plan: Patient was carefully examined and evaluated again today. Patient continues to be noncompliant with wearing appropriate shoe gear at all times and keeping pressure off of his ulcer sites as instructed. Each ulcer site was carefully debrided subcutaneously as noted in the clinical panel today again. Next, the ulcer sites were carefully cleansed and then dressed with Keena followed by dry sterile dressing and Tubigrip for compression. The patient is to change his dressings in this manner daily. Patient to continue with offloading surgical shoe to wear at all times to his right foot. The importance of keeping pressure off of the ulcer site was stressed in great detail to the patient today. The importance of proper shoe gear with enough height and width was stressed as well again today. He was instructed to stay away from tight and constricting boots. He admits to not utilizing his offloading mechanisms in his AFO. I stressed the importance of wearing his AFO that he got from [employer], as this has an offloading pocket in the exact area of his ulcer. Patient is non compliant in this and only wears the brace some of the time. We discussed the possibility of having alterations made to this brace if needed in the future. I also discussed the possibility of having the patient in the TCC should I continue to notice non compliance with keeping pressure off of his foot. He was instructed to keep pressure completely off of the ulcer sites. Patient was educated on all signs and symptoms of local and systemic infection and he is instructed to go to the emergency room immediately should he notice any of these before his visit next week. All questions were answered to the patient's satisfaction. He will follow-up in clinic in 1 week to check on progress of ulcer, but was instructed to follow-up sooner if needed.
[2018-12-23 10:51] VITALS: BP 116/72; PULSE 83; RESP 18; TEMP 36.6; BMI 39.9
--- NOTE | 2018-12-23 13:19 | PN.PCM_ITS ---
(1) Chronic ulcer of left foot with fat layer exposed Status: Acute Current Visit: No Code(s): L97.522 - Non-pressure chronic ulcer of other part of left foot with fat layer exposed (2) Ulcer of right foot with fat layer exposed Status: Acute Current Visit: No Code(s): L97.512 - Non-pressure chronic ulcer of other part of right foot with fat layer exposed (3) Other hammer toe(s) (acquired), right foot Status: Acute Current Visit: No Code(s): M20.41 - Other hammer toe(s) (acquired), right foot (4) Other hammer toe(s) (acquired), left foot Status: Acute Current Visit: No Code(s): M20.42 - Other hammer toe(s) (acquired), left foot (5) PVD (peripheral vascular disease) Status: Acute Current Visit: No Code(s): I73.9 - Peripheral vascular disease, unspecified Type of Wound Chief Complaint: Ulcer to left plantar foot History of Wound: 63-year-old white male that likes to wear cowboy boots has developed ulcers on his left foot. This has been going on for approximately for months. Patient has a long history of noncompliance with offloading his ulcer sites. 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 Patient also has a lot of autoimmune disorders and is on medications for that. Progress of Wound: Patient presents for follow up of ulcer to left plantar distal forefoot and distal right 2nd toe. Improvement noted. Patient denies any purulence or extending redness to this area. Patient continues to be non compliant with keeping pressure off of ulcer sites at all times. Patient denies any feelings of nausea, vomiting, fever, chills. - Physical Exam Vital Signs Temp Pulse Resp BP 98 F 83 18 116/72 12/23/18 10:51 12/23/18 10:51 12/23/18 10:51 12/23/18 10:51 General: Alert, Oriented x3, Cooperative, No apparent distress Extremities: Capillary Refill Less than 3 Seconds, No Calf Tenderness - Negative Juni and Kaye signs, Diminished Peripheral Pulses - DP and PT pulses faintly palpable bilateral, Edema - Slight lower extremity edema Skin: Ulcer/ Wound - Ulcer to left distal plantar forefoot with fat layer exposed. The base continues to be a mixture of adherent slough, fibrin, granular tissue as well as surrounding hyperkeratotic tissue. There continues to be no probing to bone, no tracking, no undermining, no purulence, no extending or surrounding cellulitis, and no increase in warmth at this time. Ulcer to right distal 2nd toe with fat layer exposed. The base is a mixture of adherent slough, fibrin, granular tissue as well as surrounding hyperkeratotic tissue. There is no probing to bone, no tracking, no undermining, no purulence noted today. There is improved edema and erythema to second toe compared to last week again. No increase in warmth. Wound Measurements and Assessment WC - Nurse 1 - General Ulcer Measurement Start: 12/16/18 11:15 Freq: Status: Active Protocol: Activity Type Activity Date Activity User E-Sign Co-Sign Detail Recorded Client Recorded Date Recorded By Document 12/23/18 10:51 DL [id number] 12/23/18 10:57 DL 12/23/18 10:51 Wound Center Nurse 1 [Ulcer Assessment] #6 R 2nd toe -Current Size (cm) - Length 0.7 -Current Size (cm) - Width 0.6 -Current Size (cm) - Depth 0.2 -Total Square Cm 0.42 -Photo Taken No -Exudate Amt Small -Exudate Type Serosanguine[place] -Wound Margin Thickened -Granulation Amt Small (1-33%) -Granulation Quality [place] -Necrosis Amt Small (1-33%) -Necrotic Tissue Type Adherent Slough -Structure Exposed N/A -Texture (Talisha-wound Skin Appearance) Localized Edema Scarring -Moisture (Talisha-wound Skin Appearance Maceration ) -Color (Talisha-wound Skin Appearance) Erythema -Temperature (Talisha-wound Skin No Abnormality Appearance) (Pt Warm) -Tenderness on Palpation (Talisha-wound No Skin Appearance) -Ulcer Cleansing Rinsed/ Irrigated with Saline -Foul Odor after Cleansing No -Anesthetic Used 4% Lidocaine Solution #4 Left Plantar -Current Size (cm) - Length 0.1 -Current Size (cm) - Width 0.1 -Current Size (cm) - Depth 0.1 -Total Square Cm 0.01 -Photo Taken No -Exudate Amt None Present -Wound Margin Thickened -Granulation Amt Large (67-100%) -Granulation Quality [place] -Necrosis Amt None Present (0 %) -Structure Exposed N/A -Texture (Talisha-wound Skin Appearance) Callus -Moisture (Talisha-wound Skin Appearance No Abnormality ) -Color (Talisha-wound Skin Appearance) No Abnormality -Temperature (Talisha-wound Skin No Abnormality Appearance) (Pt Warm) -Tenderness on Palpation (Talisha-wound No Skin Appearance) -Ulcer Cleansing Rinsed/ Irrigated with Saline -Foul Odor after Cleansing No -Anesthetic Used 4% Lidocaine Solution WC - Nurse 2 - General Ulcer CM Notes Start: 12/16/18 11:15 Freq: Status: Active Protocol: Activity Type Activity Date Activity User E-Sign Co-Sign Detail Recorded Client Recorded Date Recorded By Document 12/23/18 12:43 DV [id number] 12/23/18 12:56 DV 12/23/18 12:43 Wound Center Nurse 2 [Procedure/Treatment] #6 R 2nd toe -Time 12:43 -Correct Patient Yes -Correct Side, Site, Position Yes -Correct Procedure Yes -Procedure Performed Yes -Type of Procedure Debridement -Clinical Debridement Subcutaneous -Post Debridement Size (cm) - Length 0.6 -Post Debridement Size (cm) - Width 0.4 -Post Debridement Size (cm) - Depth 0.1 -Total Square Cm 0.24 -Wound/Ulcer Outcome Not Healed -Ulcer Cleansing Rinsed/ Irrigated with Saline -Foul Odor after Cleansing No -Bioengineered Tissue No -Bleeding Controlled with Pressure -Offloading No -Treatment Response Procedure Tolerated Well #4 Left Plantar -Time 12:44 -Correct Patient Yes -Correct Side, Site, Position Yes -Correct Procedure Yes -Procedure Performed Yes -Type of Procedure Debridement -Clinical Debridement Subcutaneous -Post Debridement Size (cm) - Length 0.2 -Post Debridement Size (cm) - Width 0.2 -Post Debridement Size (cm) - Depth 0.1 -Total Square Cm 0.04 -Wound/Ulcer Outcome Not Healed -Ulcer Cleansing Rinsed/ Irrigated with Saline -Foul Odor after Cleansing No -Bioengineered Tissue No -Bleeding Controlled with Pressure -Offloading No -Treatment Response Procedure Tolerated Well [See Physician Procedure note for Specifics] Pain Scale: 0-10 Numeric [Pain] -Is Patient Pain Free? Yes Musculoskeletal: Tenderness - Slight tenderness with manipulation of ulcer sites, - - Hammertoe deformities of digits 2?5 of the right and left foot. Bilateral hallux malleus deformities. Neurological: Sensory exam intact to light touch and pain Psych/Mental Status: Normal Affect, Appropriate Debridement Note Post-Debridement Measurements/Treatment WC - Nurse 2 - General Ulcer CM Notes Start: 12/16/18 11:15 Freq: Status: Active Protocol: Activity Type Activity Date Activity User E-Sign Co-Sign Detail Recorded Client Recorded Date Recorded By Document 12/16/18 11:33 DV [id number] 12/16/18 11:36 DV Document 12/23/18 12:43 DV [id number] 12/23/18 12:56 DV 12/16/18 12/23/18 11:33 12:43 Wound Center Nurse 2 #6 R 2nd toe -Time 11:34 12:43 -Correct Patient Yes Yes -Correct Side, Site, Position Yes Yes -Correct Procedure Yes Yes -Procedure Performed Yes Yes -Type of Procedure Debridement Debridement -Clinical Debridement Subcutaneous Subcutaneous -Post Debridement Size (cm) - Length 0.6 0.6 -Post Debridement Size (cm) - Width 0.6 0.4 -Post Debridement Size (cm) - Depth 0.2 0.1 -Total Square Cm 0.36 0.24 -Wound/Ulcer Outcome Not Healed Not Healed -Ulcer Cleansing Rinsed/ Rinsed/ Irrigated with Irrigated with Saline Saline -Foul Odor after Cleansing No No -Bioengineered Tissue No No -Bleeding Controlled with Pressure Pressure -Offloading No No -Treatment Response Procedure Procedure Tolerated Well Tolerated Well #4 Left Plantar -Time 11:35 12:44 -Correct Patient Yes Yes -Correct Side, Site, Position Yes Yes -Correct Procedure Yes Yes -Procedure Performed Yes Yes -Type of Procedure Debridement Debridement -Clinical Debridement Subcutaneous Subcutaneous -Post Debridement Size (cm) - Length 0.2 0.2 -Post Debridement Size (cm) - Width 0.2 0.2 -Post Debridement Size (cm) - Depth 0.2 0.1 -Total Square Cm 0.04 0.04 -Wound/Ulcer Outcome Not Healed Not Healed -Ulcer Cleansing Rinsed/ Rinsed/ Irrigated with Irrigated with Saline Saline -Foul Odor after Cleansing No No -Bioengineered Tissue No No -Bleeding Controlled with Pressure Pressure -Offloading No No -Treatment Response Procedure Procedure Tolerated Well Tolerated Well Pain Scale: 0-10 Numeric Is Patient Pain Free? Yes Yes Wound debrided: Left distal plantar forefoot Laterality: Left Type of Debridement: Excisional debridement Anesthesia Used: 4% Lidocaine Solution Depth: in the subcutaneous layer Percentage of wound debrided: 100 Instrument Used: #15 blade Tissue Removed: Adherent slough, fibrin, hyperkeratotic tissue Severity: Fat Layer Exposed Amount of bleeding with debridement: Mild Bleeding Controlled with: Pressure Patient tolerated procedure well - Additional Wound Wound debrided: Right distal second toe Laterality: Right Type of Debridement: Excisional debridement Anesthesia Used: 4% Lidocaine Solution Depth: in the subcutaneous layer Percentage of wound debrided: 100 Instrument Used: #15 blade Tissue Removed: Adherent slough, fibrin, hyperkeratotic tissue Severity: Fat Layer Exposed Amount of bleeding with debridement: Mild Bleeding Controlled with: Pressure Patient tolerated procedure: Patient tolerated procedure well Assessment/Plan Assessment: Ulcer with fat layer exposed to right distal second toe. Ulcer with fat layer exposed to left distal plantar foot. Neuropathy left leg. Other comorbidities Plan: Patient was carefully examined and evaluated again today. Patient continues to be noncompliant with wearing appropriate shoe gear at all times and keeping pressure off of his ulcer sites as instructed. Each ulcer site was carefully debrided subcutaneously as noted in the clinical panel today again. Next, the ulcer sites were carefully cleansed and then dressed with Keena followed by dry sterile dressing and Tubigrip for compression. The patient is to change his dressings in this manner daily. Patient to continue with offloading surgical shoe to wear at all times to his right foot. The importance of keeping pressure off of the ulcer site was stressed in great detail to the patient today. The importance of proper shoe gear with enough height and width was stressed as well again today. He was instructed to stay away from tight and constricting boots. He admits to not utilizing his offloading mechanisms in his AFO. I stressed the importance of wearing his AFO that he got from [employer], as this has an offloading pocket in the exact area of his ulcer. Patient is non compliant in this and only wears the brace some of the time. We discussed the possibility of having alterations made to this brace if needed in the future. I also discussed the possibility of having the patient in the TCC should I continue to notice non compliance with keeping pressure off of his foot. He was instructed to keep pressure completely off of the ulcer sites. Discussed also diabetic shoes even though he is not diabetic. He was informed this would cost approximately 150 dollars, and he says he is not interested in this. Patient was educated on all signs and symptoms of local and systemic infection and he is instructed to go to the emergency room immediately should he notice any of these before his visit next week. All questions were answered to the patient's satisfaction. He will follow-up in clinic in 1 week to check on progress of ulcer, but was instructed to follow-up sooner if needed.
[2018-12-30 10:46] VITALS: BP 125/81; PULSE 75; RESP 18; TEMP 36.2; BMI 39.9
--- NOTE | 2018-12-30 11:29 | PN.PCM_ITS ---
(1) Chronic ulcer of left foot with fat layer exposed Status: Acute Current Visit: No Code(s): L97.522 - Non-pressure chronic ulcer of other part of left foot with fat layer exposed (2) Ulcer of right foot with fat layer exposed Status: Acute Current Visit: No Code(s): L97.512 - Non-pressure chronic ulcer of other part of right foot with fat layer exposed (3) Other hammer toe(s) (acquired), right foot Status: Acute Current Visit: No Code(s): M20.41 - Other hammer toe(s) (acquired), right foot (4) Other hammer toe(s) (acquired), left foot Status: Acute Current Visit: No Code(s): M20.42 - Other hammer toe(s) (acquired), left foot (5) PVD (peripheral vascular disease) Status: Acute Current Visit: No Code(s): I73.9 - Peripheral vascular disease, unspecified Type of Wound Chief Complaint: Ulcer to left plantar foot History of Wound: 63-year-old white male that likes to wear cowboy boots has developed ulcers on his left foot. This has been going on for approximately for months. Patient has a long history of noncompliance with offloading his ulcer sites. 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 Patient also has a lot of autoimmune disorders and is on medications for that. Progress of Wound: Patient presents for follow up of ulcer to left plantar distal forefoot and distal right 2nd toe. Continued improvement. Patient denies any purulence or extending redness to this area. Patient continues to be non compliant with keeping pressure off of ulcer sites at all times. Patient denies any feelings of nausea, vomiting, fever, chills. - Physical Exam Vital Signs Temp Pulse Resp BP 97.1 F L 75 18 125/81 H 12/30/18 10:46 12/30/18 10:46 12/30/18 10:46 12/30/18 10:46 General: Alert, Oriented x3, Cooperative, No apparent distress Extremities: Capillary Refill Less than 3 Seconds, No Calf Tenderness - Negative Juni and Kaye signs, Diminished Peripheral Pulses - DP and PT pulses faintly palpable bilateral, Edema - Slight lower extremity edema Skin: Ulcer/ Wound - Ulcer to left distal plantar forefoot with fat layer exposed. The base continues to be a mixture of adherent slough, fibrin, granular tissue as well as surrounding hyperkeratotic tissue. There continues to be no probing to bone, no tracking, no undermining, no purulence, no extending or surrounding cellulitis, and no increase in warmth at this time. Ulcer to right distal 2nd toe with fat layer exposed. The base is a mixture of adherent slough, fibrin, granular tissue as well as surrounding hyperkeratotic tissue. There is no probing to bone, no tracking, no undermining, no purulence noted today. There is no significant edema or erythema to second toe. No increase in warmth. Wound Measurements and Assessment WC - Nurse 1 - General Ulcer Measurement Start: 12/16/18 11:15 Freq: Status: Active Protocol: Activity Type Activity Date Activity User E-Sign Co-Sign Detail Recorded Client Recorded Date Recorded By Document 12/30/18 10:46 AN [id number] 12/30/18 11:01 AN 12/30/18 10:46 Wound Center Nurse 1 [Ulcer Assessment] #6 R 2nd toe -Current Size (cm) - Length 0.5 -Current Size (cm) - Width 0.5 -Current Size (cm) - Depth 0.1 -Total Square Cm 0.25 -Classification - Thickness Unclassifiable (Eschar Covered ) -Exudate Amt None Present -Wound Margin Distinct, Outline Attached -Granulation Amt None Present (0 %) -Necrosis Amt Large (67-100%) -Necrotic Tissue Type Eschar -Structure Exposed None/Limited to Skin Breakdown -Texture (Talisha-wound Skin Appearance) Assessed -Moisture (Talisha-wound Skin Appearance Assessed ) -Color (Talisha-wound Skin Appearance) Assessed -Temperature (Talisha-wound Skin No Abnormality Appearance) (Pt Warm) -Tenderness on Palpation (Talisha-wound No Skin Appearance) -Ulcer Cleansing Rinsed/ Irrigated with Saline -Foul Odor after Cleansing No -Anesthetic Used 4% Lidocaine Solution #4 Left Plantar -Current Size (cm) - Length 0.3 -Current Size (cm) - Width 0.3 -Current Size (cm) - Depth 0.1 -Total Square Cm 0.09 -Classification - Thickness Unclassifiable (Eschar Covered ) -Exudate Amt None Present -Wound Margin Distinct, Outline Attached -Granulation Amt None Present (0 %) -Necrosis Amt Large (67-100%) -Necrotic Tissue Type Eschar -Structure Exposed None/Limited to Skin Breakdown -Texture (Talisha-wound Skin Appearance) Assessed -Moisture (Talisha-wound Skin Appearance Assessed ) -Color (Talisha-wound Skin Appearance) Assessed -Temperature (Talisha-wound Skin No Abnormality Appearance) (Pt Warm) -Tenderness on Palpation (Talisha-wound No Skin Appearance) -Ulcer Cleansing Rinsed/ Irrigated with Saline -Foul Odor after Cleansing No -Anesthetic Used 4% Lidocaine Solution Musculoskeletal: Tenderness - Slight tenderness with manipulation of ulcer sites, - - Hammertoe deformities of digits 2?5 of the right and left foot. Bilateral hallux malleus deformities. Neurological: Sensory exam intact to light touch and pain Psych/Mental Status: Normal Affect, Appropriate Debridement Note Post-Debridement Measurements/Treatment WC - Nurse 2 - General Ulcer CM Notes Start: 12/16/18 11:15 Freq: Status: Active Protocol: Activity Type Activity Date Activity User E-Sign Co-Sign Detail Recorded Client Recorded Date Recorded By Document 12/16/18 11:33 DV [id number] 12/16/18 11:36 DV Document 12/23/18 12:43 DV [id number] 12/23/18 12:56 DV 12/16/18 12/23/18 11:33 12:43 Wound Center Nurse 2 #6 R 2nd toe -Time 11:34 12:43 -Correct Patient Yes Yes -Correct Side, Site, Position Yes Yes -Correct Procedure Yes Yes -Procedure Performed Yes Yes -Type of Procedure Debridement Debridement -Clinical Debridement Subcutaneous Subcutaneous -Post Debridement Size (cm) - Length 0.6 0.6 -Post Debridement Size (cm) - Width 0.6 0.4 -Post Debridement Size (cm) - Depth 0.2 0.1 -Total Square Cm 0.36 0.24 -Wound/Ulcer Outcome Not Healed Not Healed -Ulcer Cleansing Rinsed/ Rinsed/ Irrigated with Irrigated with Saline Saline -Foul Odor after Cleansing No No -Bioengineered Tissue No No -Bleeding Controlled with Pressure Pressure -Offloading No No -Treatment Response Procedure Procedure Tolerated Well Tolerated Well #4 Left Plantar -Time 11:35 12:44 -Correct Patient Yes Yes -Correct Side, Site, Position Yes Yes -Correct Procedure Yes Yes -Procedure Performed Yes Yes -Type of Procedure Debridement Debridement -Clinical Debridement Subcutaneous Subcutaneous -Post Debridement Size (cm) - Length 0.2 0.2 -Post Debridement Size (cm) - Width 0.2 0.2 -Post Debridement Size (cm) - Depth 0.2 0.1 -Total Square Cm 0.04 0.04 -Wound/Ulcer Outcome Not Healed Not Healed -Ulcer Cleansing Rinsed/ Rinsed/ Irrigated with Irrigated with Saline Saline -Foul Odor after Cleansing No No -Bioengineered Tissue No No -Bleeding Controlled with Pressure Pressure -Offloading No No -Treatment Response Procedure Procedure Tolerated Well Tolerated Well Pain Scale: 0-10 Numeric Is Patient Pain Free? Yes Yes Wound debrided: Left distal plantar forefoot Laterality: Left Type of Debridement: Excisional debridement Anesthesia Used: 4% Lidocaine Solution Depth: in the subcutaneous layer Percentage of wound debrided: 100 Instrument Used: #15 blade Tissue Removed: Fibrin, hyperkeratotic tissue Severity: Fat Layer Exposed Amount of bleeding with debridement: Mild Bleeding Controlled with: Pressure Patient tolerated procedure well - Additional Wound Wound debrided: Right distal second toe Laterality: Right Type of Debridement: Excisional debridement Anesthesia Used: 4% Lidocaine Solution Depth: in the subcutaneous layer Percentage of wound debrided: 100 Instrument Used: #15 blade Tissue Removed: Adherent slough, fibrin, hyperkeratotic tissue Severity: Fat Layer Exposed Amount of bleeding with debridement: Mild Bleeding Controlled with: Pressure Patient tolerated procedure: Patient tolerated procedure well Assessment/Plan Assessment: Ulcer with fat layer exposed to right distal second toe. Ulcer with fat layer exposed to left distal plantar foot. Neuropathy left leg. Other comorbidities Plan: Patient was carefully examined and evaluated again today. Patient continu es to be noncompliant with wearing appropriate shoe gear at all times and keeping pressure off of his ulcer sites as instructed. Each ulcer site was carefully debrided subcutaneously as noted in the clinical panel. Next, the ulcer sites were carefully cleansed and then dressed with Keena followed by dry sterile dressing and Tubigrip for compression. The patient is to change his dressings in this manner daily. Patient to continue with offloading surgical shoe at all times to his right foot. The importance of keeping pressure off of the ulcer site was stressed in great detail to the patient today. The importance of proper shoe gear with enough height and width was stressed as well again today. He was instructed to stay away from tight and constricting boots. He admits to not utilizing his offloading mechanisms in his AFO. I stressed the importance of wearing his AFO that he got from [employer] as this has an offloading pocket in the exact area of his ulcer. Patient is non compliant in this and only wears the brace some of the time. We discussed the possibility of having alterations made to this brace if needed in the future. I also discussed the possibility of having the patient in the TCC should I continue to notice non compliance with keeping pressure off of his foot. He was instructed to keep pressure completely off of the ulcer sites. Patient was educated on all signs and symptoms of local and systemic infection and he is instructed to go to the emergency room immediately should he notice any of these before his visit next week. All questions were answered to the patient's satisfaction. He will follow-up in clinic in 1 week to check on progress of ulcer, but was instructed to follow-up sooner if needed.
[2019-01-06 11:06] VITALS: BP 124/72; PULSE 85; RESP 20; TEMP 36.6; BMI 39.9
--- NOTE | 2019-01-06 13:31 | PN.PCM_ITS ---
(1) Chronic ulcer of left foot with fat layer exposed Status: Acute Current Visit: No Code(s): L97.522 - Non-pressure chronic ulcer of other part of left foot with fat layer exposed (2) Ulcer of right foot with fat layer exposed Status: Acute Current Visit: No Code(s): L97.512 - Non-pressure chronic ulcer of other part of right foot with fat layer exposed (3) Other hammer toe(s) (acquired), right foot Status: Acute Current Visit: No Code(s): M20.41 - Other hammer toe(s) (acquired), right foot (4) Other hammer toe(s) (acquired), left foot Status: Acute Current Visit: No Code(s): M20.42 - Other hammer toe(s) (acquired), left foot (5) PVD (peripheral vascular disease) Status: Acute Current Visit: No Code(s): I73.9 - Peripheral vascular disease, unspecified Type of Wound Chief Complaint: Ulcer to left plantar foot History of Wound: 63-year-old white male that likes to wear cowboy boots has developed ulcers on his left foot. This has been going on for approximately for months. Patient has a long history of noncompliance with offloading his ulcer sites. 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 Patient also has a lot of autoimmune disorders and is on medications for that. Progress of Wound: Patient presents for follow up of ulcer to left plantar distal forefoot and distal right 2nd toe. Ulcers stable. Patient denies any purulence or extending redness to this area. Patient continues to be non compliant with keeping pressure off of ulcer sites at all times. Patient denies any feelings of nausea, vomiting, fever, chills. - Physical Exam Vital Signs Temp Pulse Resp BP 97.8 F 85 20 H 124/72 H 01/06/19 11:06 01/06/19 11:06 01/06/19 11:06 01/06/19 11:06 General: Alert, Oriented x3, Cooperative, No apparent distress Extremities: Capillary Refill Less than 3 Seconds, No Calf Tenderness - Negative Juni and Kaye signs, Diminished Peripheral Pulses - DP and PT pulses faintly palpable bilateral, Edema - Slight lower extremity edema Skin: Ulcer/ Wound - Ulcer to left distal plantar forefoot with fat layer exposed. The base continues to be a mixture of adherent slough, fibrin, granular tissue as well as surrounding hyperkeratotic tissue. There continues to be no probing to bone, no tracking, no undermining, no purulence, no extending or surrounding cellulitis, and no increase in warmth at this time. Ulcer to right distal 2nd toe with fat layer exposed. The base is a mixture of adherent slough, fibrin, granular tissue as well as surrounding hyperkeratotic tissue. There is no probing to bone, no tracking, no undermining, no purulence noted today. There is no significant edema or erythema to second toe. No increase in warmth Wound Measurements and Assessment WC - Nurse 1 - General Ulcer Measurement Start: 12/16/18 11:15 Freq: Status: Active Protocol: Activity Type Activity Date Activity User E-Sign Co-Sign Detail Recorded Client Recorded Date Recorded By Document 01/06/19 11:06 DL [id number] 01/06/19 11:11 DL 01/06/19 11:06 Wound Center Nurse 1 [Ulcer Assessment] #6 R 2nd toe -Current Size (cm) - Length 0.2 -Current Size (cm) - Width 0.3 -Current Size (cm) - Depth 0.1 -Total Square Cm 0.06 -Photo Taken No -Exudate Amt None Present -Wound Margin Flat & Intact -Granulation Amt Small (1-33%) -Granulation Quality [place] -Necrosis Amt None Present (0 %) -Structure Exposed N/A -Texture (Talisha-wound Skin Appearance) Localized Edema Scarring -Moisture (Talisha-wound Skin Appearance No Abnormality ) -Color (Talisha-wound Skin Appearance) Rubor -Temperature (Talisha-wound Skin No Abnormality Appearance) (Pt Warm) -Tenderness on Palpation (Talisha-wound No Skin Appearance) -Ulcer Cleansing Rinsed/ Irrigated with Saline -Foul Odor after Cleansing No -Anesthetic Used 5% Lidocaine Gel #4 Left Plantar -Current Size (cm) - Length 0.1 -Current Size (cm) - Width 0.1 -Current Size (cm) - Depth 0.1 -Total Square Cm 0.01 -Photo Taken No -Exudate Amt None Present -Wound Margin Thickened -Granulation Amt Small (1-33%) -Granulation Quality [place] -Necrosis Amt Small (1-33%) -Necrotic Tissue Type Adherent Slough -Structure Exposed N/A -Texture (Talisha-wound Skin Appearance) Callus -Moisture (Talisha-wound Skin Appearance Dry/Scaly ) -Color (Talisha-wound Skin Appearance) No Abnormality -Temperature (Talisha-wound Skin No Abnormality Appearance) (Pt Warm) -Tenderness on Palpation (Talisha-wound No Skin Appearance) -Ulcer Cleansing Rinsed/ Irrigated with Saline -Foul Odor after Cleansing No -Anesthetic Used 4% Lidocaine Solution WC - Nurse 2 - General Ulcer CM Notes Start: 12/16/18 11:15 Freq: Status: Active Protocol: Activity Type Activity Date Activity User E-Sign Co-Sign Detail Recorded Client Recorded Date Recorded By Document 01/06/19 12:09 DV [id number] 01/06/19 12:13 DV 01/06/19 12:09 Wound Center Nurse 2 [Procedure/Treatment] #6 R 2nd toe -Time 12:10 -Correct Patient Yes -Correct Side, Site, Position Yes -Correct Procedure Yes -Procedure Performed Yes -Type of Procedure Debridement -Clinical Debridement Subcutaneous -Post Debridement Size (cm) - Length 0.4 -Post Debridement Size (cm) - Width 0.4 -Post Debridement Size (cm) - Depth 0.1 -Total Square Cm 0.16 -Wound/Ulcer Outcome Not Healed -Ulcer Cleansing Rinsed/ Irrigated with Saline -Foul Odor after Cleansing No -Bioengineered Tissue No -Bleeding Controlled with Pressure -Offloading No -Treatment Response Procedure Tolerated Well #4 Left Plantar -Time 12:10 -Correct Patient Yes -Correct Side, Site, Position Yes -Correct Procedure Yes -Procedure Performed Yes -Type of Procedure Debridement -Clinical Debridement Subcutaneous -Post Debridement Size (cm) - Length 0.1 -Post Debridement Size (cm) - Width 0.2 -Post Debridement Size (cm) - Depth 0.1 -Total Square Cm 0.02 -Wound/Ulcer Outcome Not Healed -Ulcer Cleansing Rinsed/ Irrigated with Saline -Foul Odor after Cleansing No -Bioengineered Tissue No -Bleeding Controlled with Pressure -Treatment Response Procedure Tolerated Well [See Physician Procedure note for Specifics] Pain Scale: 0-10 Numeric [Pain] -Is Patient Pain Free? Yes Musculoskeletal: Tenderness - Slight tenderness at times with manipulation of ulcer sites, - - Hammertoe deformities of digits 2?5 of the right and left foot. Bilateral hallux malleus deformities Neurological: Sensory exam intact to light touch and pain Psych/Mental Status: Normal Affect, Appropriate Debridement Note Post-Debridement Measurements/Treatment WC - Nurse 2 - General Ulcer CM Notes Start: 12/16/18 11:15 Freq: Status: Active Protocol: Activity Type Activity Date Activity User E-Sign Co-Sign Detail Recorded Client Recorded Date Recorded By Document 12/16/18 11:33 DV [id number] 12/16/18 11:36 DV Document 12/23/18 12:43 DV [id number] 12/23/18 12:56 DV Document 12/30/18 11:19 DV [id number] 12/30/18 11:25 DV Document 01/06/19 12:09 DV [id number] 01/06/19 12:13 DV 12/16/18 12/23/18 12/30/18 11:33 12:43 11:19 Wound Center Nurse 2 #6 R 2nd toe -Time 11:34 12:43 11:22 -Correct Patient Yes Yes Yes -Correct Side, Site, Position Yes Yes Yes -Correct Procedure Yes Yes Yes -Procedure Performed Yes Yes Yes -Type of Procedure Debridement Debridement Debridement -Clinical Debridement Subcutaneous Subcutaneous Subcutaneous -Post Debridement Size (cm) - Length 0.6 0.6 0.4 -Post Debridement Size (cm) - Width 0.6 0.4 0.4 -Post Debridement Size (cm) - Depth 0.2 0.1 0.1 -Total Square Cm 0.36 0.24 0.16 -Wound/Ulcer Outcome Not Healed Not Healed Not Healed -Ulcer Cleansing Rinsed/ Rinsed/ Rinsed/ Irrigated with Irrigated with Irrigated with Saline Saline Saline -Foul Odor after Cleansing No No No -Bioengineered Tissue No No No -Bleeding Controlled with Pressure Pressure Pressure -Offloading No No No -Type of Offloading Surgical Shoe -Treatment Response Procedure Procedure Procedure Tolerated Well Tolerated Well Tolerated Well #4 Left Plantar -Time 11:35 12:44 11:23 -Correct Patient Yes Yes Yes -Correct Side, Site, Position Yes Yes Yes -Correct Procedure Yes Yes Yes -Procedure Performed Yes Yes Yes -Type of Procedure Debridement Debridement Debridement -Clinical Debridement Subcutaneous Subcutaneous Subcutaneous -Post Debridement Size (cm) - Length 0.2 0.2 0.1 -Post Debridement Size (cm) - Width 0.2 0.2 0.2 -Post Debridement Size (cm) - Depth 0.2 0.1 0.1 -Total Square Cm 0.04 0.04 0.02 -Wound/Ulcer Outcome Not Healed Not Healed Not Healed -Ulcer Cleansing Rinsed/ Rinsed/ Rinsed/ Irrigated with Irrigated with Irrigated with Saline Saline Saline -Foul Odor after Cleansing No No No -Bioengineered Tissue No No No -Bleeding Controlled with Pressure Pressure Pressure -Offloading No No No -Treatment Response Procedure Procedure Procedure Tolerated Well Tolerated Well Tolerated Well Pain Scale: 0-10 Numeric Is Patient Pain Free? Yes Yes Yes 01/06/19 12:09 Wound Center Nurse 2 #6 R 2nd toe -Time 12:10 -Correct Patient Yes -Correct Side, Site, Position Yes -Correct Procedure Yes -Procedure Performed Yes -Type of Procedure Debridement -Clinical Debridement Subcutaneous -Post Debridement Size (cm) - Length 0.4 -Post Debridement Size (cm) - Width 0.4 -Post Debridement Size (cm) - Depth 0.1 -Total Square Cm 0.16 -Wound/Ulcer Outcome Not Healed -Ulcer Cleansing Rinsed/ Irrigated with Saline -Foul Odor after Cleansing No -Bioengineered Tissue No -Bleeding Controlled with Pressure -Offloading No -Type of Offloading -Treatment Response Procedure Tolerated Well #4 Left Plantar -Time 12:10 -Correct Patient Yes -Correct Side, Site, Position Yes -Correct Procedure Yes -Procedure Performed Yes -Type of Procedure Debridement -Clinical Debridement Subcutaneous -Post Debridement Size (cm) - Length 0.1 -Post Debridement Size (cm) - Width 0.2 -Post Debridement Size (cm) - Depth 0.1 -Total Square Cm 0.02 -Wound/Ulcer Outcome Not Healed -Ulcer Cleansing Rinsed/ Irrigated with Saline -Foul Odor after Cleansing No -Bioengineered Tissue No -Bleeding Controlled with Pressure -Offloading -Treatment Response Procedure Tolerated Well Pain Scale: 0-10 Numeric Is Patient Pain Free? Yes Wound debrided: Left distal plantar forefoot Laterality: Left Type of Debridement: Selective debridement Anesthesia Used: 4% Lidocaine Solution Depth: in the subcutaneous layer Percentage of wound debrided: 100 Instrument Used: #15 blade Tissue Removed: Fibrin, hyperkeratotic tissue Severity: Fat Layer Exposed Amount of bleeding with debridement: Mild Bleeding Controlled with: Pressure Patient tolerated procedure well - Additional Wound Wound debrided: Right distal second toe Laterality: Right Type of Debridement: Excisional debridement Anesthesia Used: 4% Lidocaine Solution Depth: in the subcutaneous layer Percentage of wound debrided: 100 Instrument Used: #15 blade Tissue Removed: Adherent slough, fibrin, hyperkeratotic tissue Severity: Fat Layer Exposed Amount of bleeding with debridement: Mild Bleeding Controlled with: Pressure Patient tolerated procedure: Patient tolerated procedure well Assessment/Plan Assessment: Ulcer with fat layer exposed to right distal second toe. Ulcer with fat layer exposed to left distal plantar foot. Neuropathy left leg. Other comorbidities Plan: Patient was carefully examined and evaluated again today. Patient continues to be noncompliant in keeping ulcer sites offloaded as instructed at all times. Each ulcer site was carefully debrided subcutaneously as noted in the clinical panel. Next, the ulcer sites were carefully cleansed and then dressed with Keena followed by dry sterile dressing and Tubigrip for compression. The patient is to change his dressings in this manner daily. Patient to continue with offloading surgical shoe at all times to his right foot. The importance of keeping pressure off of the ulcer site was stressed in great detail to the patient today. The importance of proper shoe gear with enough height and width was stressed as well again today. He was instructed to stay away from tight and constricting boots. He admits to not utilizing his offloading mechanisms in his AFO. I stressed the importance of wearing his AFO that he got from [employer], as this has an offloading pocket in the exact area of his ulcer. Patient is non compliant in this and only wears the brace some of the time. We discussed the possibility of having alterations made to this brace if needed in the future. I also discussed the possibility of having the patient in the TCC should I continue to notice non compliance with keeping pressure off of his foot. He was instructed to keep pressure completely off of the ulcer sites. Patient was educated on all signs and symptoms of local and systemic infection and he is instructed to go to the emergency room immediately should he notice any of these before his visit next week. All questions were answered to the patient's satisfaction. He will follow-up in clinic in 1 week to check on progress of ulcer, but was instructed to follow-up sooner if needed.
== END 2019-01-11 23:59 ==
LOC: WC 10:30
PROVIDERS: Referring Provider Podiatrist; Visit Provider Podiatrist
DX: I73.9 Peripheral vascular disease, unspecified (principal); L97.522 Non-pressure chronic ulcer of other part of left foot with fat layer exposed; L97.512 Non-pressure chronic ulcer of other part of right foot with fat layer exposed; M20.41 Other hammer toe(s) (acquired), right foot; G62.9 Polyneuropathy, unspecified; Z91.19 Patient's noncompliance with other medical treatment and regimen; M20.42 Other hammer toe(s) (acquired), left foot
CPT/HCPCS: 11042

== ENCOUNTER 2019-02-10 11:15 | Outpatient (RCR) | payer MEDICARE, SELFPAY ==
[2019-01-12 01:00] VITALS: BP 124/72; PULSE 85; RESP 20; TEMP 36.6
[2019-01-13 10:47] VITALS: BP 130/72; PULSE 78; RESP 18; TEMP 36.4; BMI 39.9
--- NOTE | 2019-01-13 12:36 | PN.PCM_ITS ---
(1) Chronic ulcer of left foot with fat layer exposed Status: Acute Current Visit: No Code(s): L97.522 - Non-pressure chronic ulcer of other part of left foot with fat layer exposed (2) Ulcer of right foot with fat layer exposed Status: Acute Current Visit: No Code(s): L97.512 - Non-pressure chronic ulcer of other part of right foot with fat layer exposed (3) Other hammer toe(s) (acquired), right foot Status: Acute Current Visit: No Code(s): M20.41 - Other hammer toe(s) (acquired), right foot (4) Other hammer toe(s) (acquired), left foot Status: Acute Current Visit: No Code(s): M20.42 - Other hammer toe(s) (acquired), left foot (5) PVD (peripheral vascular disease) Status: Acute Current Visit: No Code(s): I73.9 - Peripheral vascular disease, unspecified Type of Wound Chief Complaint: Ulcer to left plantar foot History of Wound: 63-year-old white male that likes to wear cowboy boots has developed ulcers on his left foot. This has been going on for approximately for months. Patient has a long history of noncompliance with offloading his ulcer sites. 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 Patient also has a lot of autoimmune disorders and is on medications for that. Progress of Wound: Ulcers to left plantar distal forefoot and distal right 2nd toe improving. Patient denies any purulence or extending redness to this area. Patient continues to be non compliant with keeping pressure off of ulcer sites at all times. Patient denies any feelings of nausea, vomiting, fever, chills. - Physical Exam Vital Signs Temp Pulse Resp BP 97.5 F L 78 18 130/72 H 01/13/19 10:47 01/13/19 10:47 01/13/19 10:47 01/13/19 10:47 General: Alert, Oriented x3, Cooperative, No apparent distress Extremities: Capillary Refill Less than 3 Seconds, No Calf Tenderness - Negative Juni and Kaye signs, Diminished Peripheral Pulses - DP and PT pulses faintly palpable bilateral, Edema - Slight lower extremity edema Skin: Ulcer/ Wound - Ulcer to left distal plantar forefoot with fat layer exposed. The base continues to be a mixture of adherent slough, fibrin, granular tissue as well as surrounding hyperkeratotic tissue. There continues to be no probing to bone, no tracking, no undermining, no purulence, no extending or surrounding cellulitis, and no increase in warmth at this time. Ulcer to right distal 2nd toe with fat layer exposed. The base is a mixture of adherent slough, fibrin, granular tissue as well as surrounding hyperkeratotic tissue. There is no probing to bone, no tracking, no undermining, no purulence noted today. There is no significant edema, erythema, or increase in warmth to this area. Wound Measurements and Assessment WC - Nurse 1 - General Ulcer Measurement Start: 01/13/19 10:47 Freq: Status: Active Protocol: Activity Type Activity Date Activity User E-Sign Co-Sign Detail Recorded Client Recorded Date Recorded By Document 01/13/19 10:47 DL [id number] 01/13/19 10:56 DL 01/13/19 10:47 Wound Center Nurse 1 [Ulcer Assessment] #6 R 2nd toe -Current Size (cm) - Length 0.2 -Current Size (cm) - Width 0.3 -Current Size (cm) - Depth 0.1 -Total Square Cm 0.06 -Photo Taken No -Exudate Amt None Present -Wound Margin Flat & Intact -Granulation Amt Small (1-33%) -Granulation Quality [place] -Necrosis Amt Small (1-33%) -Structure Exposed N/A -Texture (Talisha-wound Skin Appearance) Scarring -Moisture (Talisha-wound Skin Appearance Maceration ) -Color (Talisha-wound Skin Appearance) No Abnormality -Temperature (Talisha-wound Skin No Abnormality Appearance) (Pt Warm) -Tenderness on Palpation (Talisha-wound No Skin Appearance) -Ulcer Cleansing Wound Cleanser -Foul Odor after Cleansing No -Anesthetic Used 5% Lidocaine Gel #4 Left Plantar -Current Size (cm) - Length 0.1 -Current Size (cm) - Width 0.1 -Current Size (cm) - Depth 0.1 -Total Square Cm 0.01 -Photo Taken No -Exudate Amt None Present -Wound Margin Thickened -Granulation Amt Large (67-100%) -Granulation Quality Pale -Necrosis Amt None Present (0 %) -Structure Exposed N/A -Texture (Talisha-wound Skin Appearance) Callus -Moisture (Talisha-wound Skin Appearance No Abnormality ) -Color (Talisha-wound Skin Appearance) No Abnormality -Temperature (Talisha-wound Skin No Abnormality Appearance) (Pt Warm) -Tenderness on Palpation (Talisha-wound No Skin Appearance) -Ulcer Cleansing Wound Cleanser -Foul Odor after Cleansing No -Anesthetic Used 5% Lidocaine Gel WC - Nurse 2 - General Ulcer CM Notes Start: 01/13/19 10:47 Freq: Status: Active Protocol: Activity Type Activity Date Activity User E-Sign Co-Sign Detail Recorded Client Recorded Date Recorded By Document 01/13/19 11:24 DV [id number] 01/13/19 11:26 DV 01/13/19 11:24 Wound Center Nurse 2 [Procedure/Treatment] #6 R 2nd toe -Time 11:25 -Correct Patient Yes -Correct Side, Site, Position Yes -Correct Procedure Yes -Procedure Performed Yes -Type of Procedure Debridement -Clinical Debridement Subcutaneous -Post Debridement Size (cm) - Length 0.3 -Post Debridement Size (cm) - Width 0.4 -Post Debridement Size (cm) - Depth 0.1 -Total Square Cm 0.12 -Wound/Ulcer Outcome Not Healed #4 Left Plantar -Time 11:26 -Correct Patient Yes -Correct Side, Site, Position Yes -Correct Procedure Yes -Procedure Performed Yes -Type of Procedure Debridement -Clinical Debridement Subcutaneous -Post Debridement Size (cm) - Length 0.1 -Post Debridement Size (cm) - Width 0.2 -Post Debridement Size (cm) - Depth 0.1 -Total Square Cm 0.02 [See Physician Procedure note for Specifics] Musculoskeletal: Tenderness - Slight tenderness at times with manipulation of ulcer sites, - - Hammertoe deformities of digits 2?5 of the right and left foot. Bilateral hallux malleus deformities Neurological: Sensory exam intact to light touch and pain Psych/Mental Status: Normal Affect, Appropriate Debridement Note Post-Debridement Measurements/Treatment WC - Nurse 2 - General Ulcer CM Notes Start: 01/13/19 10:47 Freq: Status: Active Protocol: Activity Type Activity Date Activity User E-Sign Co-Sign Detail Recorded Client Recorded Date Recorded By Document 01/13/19 11:24 DV [id number] 01/13/19 11:26 DV 01/13/19 11:24 Wound Center Nurse 2 #6 R 2nd toe -Time 11:25 -Correct Patient Yes -Correct Side, Site, Position Yes -Correct Procedure Yes -Procedure Performed Yes -Type of Procedure Debridement -Clinical Debridement Subcutaneous -Post Debridement Size (cm) - Length 0.3 -Post Debridement Size (cm) - Width 0.4 -Post Debridement Size (cm) - Depth 0.1 -Total Square Cm 0.12 -Wound/Ulcer Outcome Not Healed #4 Left Plantar -Time 11:26 -Correct Patient Yes -Correct Side, Site, Position Yes -Correct Procedure Yes -Procedure Performed Yes -Type of Procedure Debridement -Clinical Debridement Subcutaneous -Post Debridement Size (cm) - Length 0.1 -Post Debridement Size (cm) - Width 0.2 -Post Debridement Size (cm) - Depth 0.1 -Total Square Cm 0.02 Wound debrided: Left distal plantar forefoot Laterality: Left Type of Debridement: Selective debridement Anesthesia Used: 4% Lidocaine Solution Depth: in the subcutaneous layer Percentage of wound debrided: 100 Instrument Used: #15 blade Tissue Removed: Fibrin, hyperkeratotic tissue Severity: Fat Layer Exposed Amount of bleeding with debridement: Mild Bleeding Controlled with: Pressure Patient tolerated procedure well - Additional Wound Wound debrided: Right distal second toe Laterality: Right Type of Debridement: Excisional debridement Anesthesia Used: 4% Lidocaine Solution Depth: in the subcutaneous layer Percentage of wound debrided: 100 Instrument Used: #15 blade Tissue Removed: Adherent slough, fibrin, hyperkeratotic tissue Severity: Fat Layer Exposed Amount of bleeding with debridement: Mild Bleeding Controlled with: Pressure Patient tolerated procedure: Patient tolerated procedure well Assessment/Plan Assessment: Ulcer with fat layer exposed to right distal second toe. Ulcer with fat layer exposed to left distal plantar foot. Neuropathy left leg. Other comorbidities Plan: Patient was carefully examined and evaluated again today. Patient continues to be noncompliant in keeping ulcer sites offloaded as instructed at all times. Each ulcer site was carefully debrided as noted in the clinical panel. Next, the ulcer sites were carefully cleansed and then dressed with Keena followed by dry sterile dressing and Tubigrip for compression. The patient is to change his dressings in this manner daily. Patient to continue with offloading surgical shoe at all times to his right foot. The importance of keeping pressure off of the ulcer site was stressed in great detail to the patient today. The importance of proper shoe gear with enough height and width was stressed as well again today. He was instructed to stay away from tight and constricting boots. He admits to not utilizing his offloading mechanisms in his AFO. I stressed the importance of wearing his AFO that he got from [facility], as this has an offloading pocket in the exact area of his ulcer. Patient is non compliant in this and only wears the brace some of the time. We discussed the possibility of having alterations made to this brace if needed in the future. I also discussed the possibility of having the patient in the [facility] should I continue to notice non compliance with keeping pressure off of his foot. He was instructed to keep pressure completely off of the ulcer sites. Patient was educated on all signs and symptoms of local and systemic infection and he is instructed to go to the emergency room immediately should he notice any of these before his visit next week. All questions were answered to the patient's satisfaction. He will follow-up in clinic in 1 week to check on progress of ulcer, but was instructed to follow-up sooner if needed.
[2019-01-27 10:35] VITALS: BP 113/79; PULSE 85; RESP 18; TEMP 37.1; BMI 39.9
--- NOTE | 2019-01-27 11:07 | PCM.WC.PN ---
(1) Chronic ulcer of left foot with fat layer exposed Status: Acute Current Visit: No Code(s): L97.522 - Non-pressure chronic ulcer of other part of left foot with fat layer exposed (2) Ulcer of right foot with fat layer exposed Status: Acute Current Visit: No Code(s): L97.512 - Non-pressure chronic ulcer of other part of right foot with fat layer exposed (3) Other hammer toe(s) (acquired), right foot Status: Acute Current Visit: No Code(s): M20.41 - Other hammer toe(s) (acquired), right foot (4) Other hammer toe(s) (acquired), left foot Status: Acute Current Visit: No Code(s): M20.42 - Other hammer toe(s) (acquired), left foot (5) PVD (peripheral vascular disease) Status: Acute Current Visit: No Code(s): I73.9 - Peripheral vascular disease, unspecified Type of Wound Chief Complaint: Ulcer to left plantar foot History of Wound: 63-year-old white male that likes to wear cowboy boots has developed ulcers on his left foot. This has been going on for approximately for months. Patient has a long history of noncompliance with offloading his ulcer sites. 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 Patient also has a lot of autoimmune disorders and is on medications for that. Progress of Wound: Ulcers to left plantar distal forefoot and distal right 2nd toe stable. Patient also says about 5 days ago he must have wrapped coban too tightly and it slid and caused a small area of skin break down on the lateral 5th and 4th toes. Denies any signs of infection to these areas. Patient denies any purulence or extending redness to this area. Patient continues to be non compliant with keeping pressure off of ulcer sites at all times. Patient denies any feelings of nausea, vomiting, fever, chills. - Physical Exam Vital Signs Temp Pulse Resp BP 98.7 F 85 18 113/79 01/27/19 10:35 01/27/19 10:35 01/27/19 10:35 01/27/19 10:35 General: Alert, Oriented x3, Cooperative, No apparent distress Extremities: Capillary Refill Less than 3 Seconds, No Calf Tenderness - Negative Juni and Kaye signs, Diminished Peripheral Pulses - DP and PT pulses faintly palpable bilateral, Edema - Slight lower extremity edema Skin: Ulcer/ Wound - Ulcer to left distal plantar forefoot with fat layer exposed. The base continues to be a mixture of adherent slough, fibrin, granular tissue as well as surrounding hyperkeratotic tissue. There continues to be no probing to bone, no tracking, no undermining, no purulence, no extending or surrounding cellulitis, and no increase in warmth at this time. Ulcer to right distal 2nd toe with fat layer exposed. The base is a mixture of adherent slough, fibrin, granular tissue as well as surrounding hyperkeratotic tissue. There is no probing to bone, no tracking, no undermining, no purulence noted today. There is no significant edema, erythema, or increase in warmth to this area. New superficial ulcers to lateral left fourth and fifth toes with fat layer exposed. Patient is a mixture of adherent slough, fibrin, biofilm, granular tissue, with some surrounding slight hyperkeratotic tissue. There is no purulence, no malodor, no extending or surrounding cellulitis, no increased warmth, no probing to bone, no tracking, and no undermining. Wound Measurements and Assessment WC - Nurse 1 - General Ulcer Measurement Start: 01/13/19 10:47 Freq: Status: Active Protocol: Activity Type Activity Date Activity User E-Sign Co-Sign Detail Recorded Client Recorded Date Recorded By Document 01/27/19 10:35 AN [id number] 01/27/19 10:48 AN 01/27/19 10:35 Wound Center Nurse 1 [Ulcer Assessment] #7 left fourth toe lateral -Current Size (cm) - Length 0.7 -Current Size (cm) - Width 0.6 -Current Size (cm) - Depth 0.1 -Total Square Cm 0.42 -Date of Last Picture (Recall this 01/27/19 field) -Photo Taken Yes -Classification - Thickness Full Thickness without Exposed Support Structure -Exudate Amt Medium -Exudate Type Serosanguineous -Wound Margin Distinct, Outline Attached -Granulation Amt Large (67-100%) -Granulation Quality [place] Red -Slough/Fibrin Yes -Necrosis Amt Small (1-33%) -Necrotic Tissue Type Adherent Slough -Structure Exposed None/Limited to Skin Breakdown -Texture (Talisha-wound Skin Appearance) Assessed -Moisture (Talisha-wound Skin Appearance Assessed ) -Color (Talisha-wound Skin Appearance) Assessed -Temperature (Talisha-wound Skin No Abnormality Appearance) (Pt Warm) -Tenderness on Palpation (Talisha-wound Yes Skin Appearance) -Ulcer Cleansing Rinsed/ Irrigated with Saline -Foul Odor after Cleansing No -Anesthetic Used 4% Lidocaine Solution #6 R 2nd toe -Current Size (cm) - Length 0.1 -Current Size (cm) - Width 0.2 -Current Size (cm) - Depth 0.1 -Total Square Cm 0.02 -Classification - Thickness Full Thickness without Exposed Support Structure -Exudate Amt Small -Exudate Type Serosanguineous -Wound Margin Distinct, Outline Attached -Granulation Amt Large (67-100%) -Granulation Quality [place] -Slough/Fibrin Yes -Necrosis Amt Large (67-100%) -Necrotic Tissue Type Eschar -Structure Exposed None/Limited to Skin Breakdown -Texture (Talisha-wound Skin Appearance) Assessed -Moisture (Talisha-wound Skin Appearance Assessed ) -Color (Talisha-wound Skin Appearance) Assessed -Temperature (Talisha-wound Skin No Abnormality Appearance) (Pt Warm) -Tenderness on Palpation (Talisha-wound Yes Skin Appearance) -Ulcer Cleansing Rinsed/ Irrigated with Saline -Foul Odor after Cleansing No -Anesthetic Used 4% Lidocaine Solution #4 Left Plantar -Current Size (cm) - Length 0.1 -Current Size (cm) - Width 0.1 -Current Size (cm) - Depth 0.1 -Total Square Cm 0.01 -Photo Taken No -Classification - Thickness Unclassifiable (Eschar Covered ) WC - Nurse 2 - General Ulcer CM Notes Start: 01/13/19 10:47 Freq: Status: Active Protocol: Activity Type Activity Date Activity User E-Sign Co-Sign Detail Recorded Client Recorded Date Recorded By Document 01/27/19 10:51 AN [id number] 01/27/19 11:02 AN 01/27/19 10:51 Wound Center Nurse 2 [Procedure/Treatment] #8 LEFT FIFTH TOE -Correct Patient Yes -Correct Side, Site, Position Yes -Correct Procedure Yes -Procedure Performed Yes -Type of Procedure Debridement -Clinical Debridement Subcutaneous -Post Debridement Size (cm) - Length 0.5 -Post Debridement Size (cm) - Width 0.5 -Post Debridement Size (cm) - Depth 0.1 -Total Square Cm 0.25 -Wound/Ulcer Outcome Healed- Surgical Closure -Foul Odor after Cleansing No -Bioengineered Tissue No -Bleeding Controlled with Pressure -Offloading Yes -Type of Offloading Surgical Shoe -Treatment Response Procedure Tolerated Well #7 left fourth toe lateral -Time 10:55 -Correct Patient Yes -Correct Side, Site, Position Yes -Correct Procedure Yes -Procedure Performed Yes -Type of Procedure Debridement -Clinical Debridement Subcutaneous -Post Debridement Size (cm) - Length 0.9 -Post Debridement Size (cm) - Width 0.8 -Post Debridement Size (cm) - Depth 0.1 -Total Square Cm 0.72 -Wound/Ulcer Outcome Not Healed -Ulcer Cleansing Rinsed/ Irrigated with Saline -Foul Odor after Cleansing No -Bioengineered Tissue No -Bleeding Controlled with Pressure -Offloading Yes -Treatment Response Procedure Tolerated Well #6 R 2nd toe -Time 10:55 -Correct Patient Yes -Correct Side, Site, Position Yes -Correct Procedure Yes -Procedure Performed Yes -Type of Procedure Debridement -Clinical Debridement Subcutaneous -Post Debridement Size (cm) - Length 0.2 -Post Debridement Size (cm) - Width 0.3 -Post Debridement Size (cm) - Depth 0.2 -Total Square Cm 0.06 -Wound/Ulcer Outcome Not Healed -Ulcer Cleansing Rinsed/ Irrigated with Saline -Foul Odor after Cleansing No -Bleeding Controlled with Pressure -Offloading Yes -Type of Offloading Surgical Shoe -Treatment Response Procedure Tolerated Well #4 Left Plantar -Time 10:56 -Correct Patient Yes -Correct Side, Site, Position Yes -Correct Procedure Yes -Procedure Performed Yes -Type of Procedure Debridement -Clinical Debridement Subcutaneous -Post Debridement Size (cm) - Length 0.3 -Post Debridement Size (cm) - Width 0.4 -Post Debridement Size (cm) - Depth 0.1 -Total Square Cm 0.12 -Wound/Ulcer Outcome Not Healed -Ulcer Cleansing Rinsed/ Irrigated with Saline -Foul Odor after Cleansing No -Bioengineered Tissue No -Bleeding Controlled with Pressure -Offloading Yes -Treatment Response Procedure Tolerated Well [See Physician Procedure note for Specifics] Pain Scale: 0-10 Numeric [Pain] -Is Patient Pain Free? Yes Musculoskeletal: Tenderness - Slight tenderness at times with manipulation of ulcer sites, - - Hammertoe deformities of digits 2?5 of the right and left foot. Bilateral hallux malleus deformities Neurological: Sensory exam intact to light touch and pain Psych/Mental Status: Normal Affect, Appropriate Debridement Note Post-Debridement Measurements/Treatment WC - Nurse 2 - General Ulcer CM Notes Start: 01/13/19 10:47 Freq: Status: Active Protocol: Activity Type Activity Date Activity User E-Sign Co-Sign Detail Recorded Client Recorded Date Recorded By Document 01/13/19 11:24 DV [id number] 01/13/19 11:26 DV Document 01/27/19 10:51 AN [id number] 01/27/19 11:02 AN 01/13/19 01/27/19 11:24 10:51 Wound Center Nurse 2 #8 LEFT FIFTH TOE -Correct Patient Yes -Correct Side, Site, Position Yes -Correct Procedure Yes -Procedure Performed Yes -Type of Procedure Debridement -Clinical Debridement Subcutaneous -Post Debridement Size (cm) - Length 0.5 -Post Debridement Size (cm) - Width 0.5 -Post Debridement Size (cm) - Depth 0.1 -Total Square Cm 0.25 -Wound/Ulcer Outcome Healed- Surgical Closure -Foul Odor after Cleansing No -Bioengineered Tissue No -Bleeding Controlled with Pressure -Offloading Yes -Type of Offloading Surgical Shoe -Treatment Response Procedure Tolerated Well #7 left fourth toe lateral -Time 10:55 -Correct Patient Yes -Correct Side, Site, Position Yes -Correct Procedure Yes -Procedure Performed Yes -Type of Procedure Debridement -Clinical Debridement Subcutaneous -Post Debridement Size (cm) - Length 0.9 -Post Debridement Size (cm) - Width 0.8 -Post Debridement Size (cm) - Depth 0.1 -Total Square Cm 0.72 -Wound/Ulcer Outcome Not Healed -Ulcer Cleansing Rinsed/ Irrigated with Saline -Foul Odor after Cleansing No -Bioengineered Tissue No -Bleeding Controlled with Pressure -Offloading Yes -Treatment Response Procedure Tolerated Well #6 R 2nd toe -Time 11:25 10:55 -Correct Patient Yes Yes -Correct Side, Site, Position Yes Yes -Correct Procedure Yes Yes -Procedure Performed Yes Yes -Type of Procedure Debridement Debridement -Clinical Debridement Subcutaneous Subcutaneous -Post Debridement Size (cm) - Length 0.3 0.2 -Post Debridement Size (cm) - Width 0.4 0.3 -Post Debridement Size (cm) - Depth 0.1 0.2 -Total Square Cm 0.12 0.06 -Wound/Ulcer Outcome Not Healed Not Healed -Ulcer Cleansing Rinsed/ Irrigated with Saline -Foul Odor after Cleansing No -Bleeding Controlled with Pressure -Offloading Yes -Type of Offloading Surgical Shoe -Treatment Response Procedure Tolerated Well #4 Left Plantar -Time 11:26 10:56 -Correct Patient Yes Yes -Correct Side, Site, Position Yes Yes -Correct Procedure Yes Yes -Procedure Performed Yes Yes -Type of Procedure Debridement Debridement -Clinical Debridement Subcutaneous Subcutaneous -Post Debridement Size (cm) - Length 0.1 0.3 -Post Debridement Size (cm) - Width 0.2 0.4 -Post Debridement Size (cm) - Depth 0.1 0.1 -Total Square Cm 0.02 0.12 -Wound/Ulcer Outcome Not Healed -Ulcer Cleansing Rinsed/ Irrigated with Saline -Foul Odor after Cleansing No -Bioengineered Tissue No -Bleeding Controlled with Pressure -Offloading Yes -Treatment Response Procedure Tolerated Well Pain Scale: 0-10 Numeric Is Patient Pain Free? Yes Wound debrided: Left distal plantar forefoot Laterality: Left Type of Debridement: Excisional debridement Anesthesia Used: 4% Lidocaine Solution Depth: in the subcutaneous layer Percentage of wound debrided: 100 Instrument Used: #15 blade Tissue Removed: Fibrin, hyperkeratotic tissue Severity: Fat Layer Exposed Amount of bleeding with debridement: Mild Bleeding Controlled with: Pressure Patient tolerated procedure well - Additional Wound Wound debrided: Right distal second toe Laterality: Right Type of Debridement: Excisional debridement Anesthesia Used: 4% Lidocaine Solution Depth: in the subcutaneous layer Percentage of wound debrided: 100 Instrument Used: #15 blade Tissue Removed: Adherent slough, fibrin, hyperkeratotic tissue Severity: Fat Layer Exposed Amount of bleeding with debridement: Mild Bleeding Controlled with: Pressure Patient tolerated procedure: Patient tolerated procedure well - Additional Wound Wound debrided: Left lateral fifth toe Laterality: Left Type of Debridement: Excisional debridement Anesthesia Used: 4% Lidocaine Solution Depth: in the subcutaneous layer Percentage of wound debrided: 100 Instrument Used: #15 blade Tissue Removed: Adherent slough, fibrin, hyperkeratotic tissue Severity: Fat Layer Exposed Amount of bleeding with debridement: Mild Bleeding Controlled with: Pressure Patient tolerated procedure: Patient tolerated procedure well - Additional Wound Wound debrided: Left lateral fourth toe Laterality: Left Type of Debridement: Excisional debridement Anesthesia Used: 4% Lidocaine Solution Depth: in the subcutaneous layer Percentage of wound debrided: 100 Instrument Used: #15 blade Tissue Removed: Adherent slough, fibrin, hyperkeratotic tissue Severity: Fat Layer Exposed Amount of bleeding with debridement: Mild Bleeding Controlled with: Pressure Patient tolerated procedure: Patient tolerated procedure well Assessment/Plan Assessment: Ulcer with fat layer exposed to right distal second toe. Ulcer with fat layer exposed to left distal plantar foot. Neuropathy left leg. Other comorbidities Plan: Patient was carefully examined and evaluated again today. Patient continues to be noncompliant in keeping ulcer sites offloaded as instructed at all times. Patient has new ulcers to lateral left 4th and 5th toes. Each ulcer site was carefully debrided as noted in the clinical panel. Next, the ulcer sites were carefully cleansed and then dressed with Keena followed by dry sterile dressing and Tubigrip for compression. The patient is to change his dressings in this manner daily. Patient dispensed offloading surgical shoe for right and left foot today. He is to wear these to keep the ulcer sites offloaded. The importance of keeping pressure off of the ulcer site was stressed in great detail to the patient again today. The importance of proper shoe gear with enough height and width was stressed as well again today. He was instructed to stay away from tight and constricting boots. He admits to not utilizing his offloading mechanisms in his AFO. I stressed the importance of wearing his AFO that he got from [email or web address], as this has an offloading pocket in the exact area of his ulcer. Patient is non compliant in this and only wears the brace some of the time. We discussed the possibility of having alterations made to this brace if needed in the future. I also discussed the possibility of having the patient in the [facility] should I continue to notice non compliance with keeping pressure off of his foot. He was instructed to keep pressure completely off of the ulcer sites. Patient was educated on all signs and symptoms of local and systemic infection and he is instructed to go to the emergency room immediately should he notice any of these before his visit next week. All questions were answered to the patient's satisfaction. He will follow-up in clinic in 1 week to check on progress of ulcer, but was instructed to follow-up sooner if needed.
[2019-02-03 11:23] VITALS: BP 161/96; PULSE 85; RESP 16; TEMP 37; BMI 39.9
--- NOTE | 2019-02-03 13:35 | PCM.WC.PN ---
(1) Chronic ulcer of left foot with fat layer exposed Status: Acute Current Visit: No Code(s): L97.522 - Non-pressure chronic ulcer of other part of left foot with fat layer exposed (2) Ulcer of right foot with fat layer exposed Status: Acute Current Visit: No Code(s): L97.512 - Non-pressure chronic ulcer of other part of right foot with fat layer exposed (3) Other hammer toe(s) (acquired), right foot Status: Acute Current Visit: No Code(s): M20.41 - Other hammer toe(s) (acquired), right foot (4) Other hammer toe(s) (acquired), left foot Status: Acute Current Visit: No Code(s): M20.42 - Other hammer toe(s) (acquired), left foot (5) PVD (peripheral vascular disease) Status: Acute Current Visit: No Code(s): I73.9 - Peripheral vascular disease, unspecified Type of Wound Chief Complaint: Ulcer to left plantar foot History of Wound: 63-year-old white male that likes to wear cowboy boots has developed ulcers on his left foot. This has been going on for approximately for months. Patient has a long history of noncompliance with offloading his ulcer sites. 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 Patient also has a lot of autoimmune disorders and is on medications for that. Progress of Wound: Patient presents for follow up of bilateral ulcers. Patient continues to be non compliant with keeping pressure off of ulcer sites at all times. Patient denies any feelings of nausea, vomiting, fever, chills. - Physical Exam Vital Signs Temp Pulse Resp BP 98.6 F 85 16 161/96 H 02/03/19 11:23 02/03/19 11:23 02/03/19 11:23 02/03/19 11:23 General: Alert, Oriented x3, Cooperative, No apparent distress Extremities: Capillary Refill Less than 3 Seconds, No Calf Tenderness - Negative Juni and Kaye signs, Diminished Peripheral Pulses - DP and PT pulses faintly palpable bilateral, Edema - Slight lower extremity edema Skin: Ulcer/ Wound - Ulcer to left distal plantar forefoot appears healed today. Ulcer to right distal 2nd toe with fat layer exposed. The base is a mixture of adherent slough, fibrin, granular tissue as well as surrounding hyperkeratotic tissue. There is no probing to bone, no tracking, no undermining, no purulence noted today. There is no significant edema, erythema, or increase in warmth to this area. Ulcers to lateral left fourth and fifth toes with fat layer exposed. Base is a mixture of adherent slough, fibrin, biofilm, granular tissue, with some surrounding slight hyperkeratotic tissue. There is no purulence, no malodor, no extending or surrounding cellulitis, no increased warmth, no probing to bone, no tracking, and no undermining. Wound Measurements and Assessment WC - Nurse 1 - General Ulcer Measurement Start: 01/13/19 10:47 Freq: Status: Active Protocol: Activity Type Activity Date Activity User E-Sign Co-Sign Detail Recorded Client Recorded Date Recorded By Document 02/03/19 11:23 [facility] [id number] 02/03/19 11:32 [facility] 02/03/19 11:23 Wound Center Nurse 1 [Ulcer Assessment] #8 LEFT FIFTH TOE -Combined with other wound No -Current Size (cm) - Length 0.3 -Current Size (cm) - Width 0.5 -Current Size (cm) - Depth 0.2 -Total Square Cm 0.15 -Date of Last Picture (Recall this 02/03/19 field) -Photo Taken Yes -Epithelialization Small 1-33% -Tunneling No -Undermining/Tunneling No -Circular Undermining No -Exudate Amt None Present -Wound Margin Distinct, Outline Attached -Granulation Amt Large (67-100%) -Granulation Quality Red -Slough/Fibrin No -Necrosis Amt None Present (0 %) -Texture (Talisha-wound Skin Appearance) Assessed Scarring -Moisture (Talisha-wound Skin Appearance Assessed ) Maceration Dry/Scaly -Color (Talisha-wound Skin Appearance) Assessed Erythema Palor -Temperature (Talisha-wound Skin No Abnormality Appearance) (Pt Warm) -Tenderness on Palpation (Talisha-wound No Skin Appearance) -Ulcer Cleansing Rinsed/ Irrigated with Saline -Foul Odor after Cleansing No -Anesthetic Used 5% Lidocaine Gel #7 left fourth toe lateral -Combined with other wound No -Current Size (cm) - Length 0.6 -Current Size (cm) - Width 0.5 -Current Size (cm) - Depth 0.1 -Total Square Cm 0.30 -Date of Last Picture (Recall this 02/03/19 field) -Photo Taken Yes -Epithelialization Small 1-33% -Tunneling No -Undermining/Tunneling No -Circular Undermining No -Exudate Amt Small -Exudate Type Serosanguineous -Wound Margin Distinct, Outline Attached -Granulation Amt Large (67-100%) -Granulation Quality Red -Slough/Fibrin Yes -Necrosis Amt Small (1-33%) -Necrotic Tissue Type Adherent Slough -Texture (Talisha-wound Skin Appearance) Assessed Scarring -Moisture (Talisha-wound Skin Appearance Assessed ) Dry/Scaly -Color (Talisha-wound Skin Appearance) Assessed -Temperature (Talisha-wound Skin No Abnormality Appearance) (Pt Warm) -Tenderness on Palpation (Talisha-wound No Skin Appearance) -Ulcer Cleansing Rinsed/ Irrigated with Saline -Foul Odor after Cleansing No -Anesthetic Used 5% Lidocaine Gel #6 R 2nd toe -Combined with other wound No -Current Size (cm) - Length 0.1 -Current Size (cm) - Width 0.1 -Current Size (cm) - Depth 0.1 -Total Square Cm 0.01 -Date of Last Picture (Recall this 02/03/19 field) -Photo Taken Yes -Epithelialization None Present -Tunneling No -Undermining/Tunneling No -Circular Undermining No -Exudate Amt None Present -Wound Margin Distinct, Outline Attached -Granulation Amt None Present (0 %) -Slough/Fibrin Yes -Necrosis Amt Large (67-100%) -Necrotic Tissue Type Adherent Slough -Texture (Talisha-wound Skin Appearance) Assessed Callus Scarring -Moisture (Talisha-wound Skin Appearance Assessed ) Dry/Scaly -Color (Talisha-wound Skin Appearance) Assessed -Temperature (Talisha-wound Skin No Abnormality Appearance) (Pt Warm) -Tenderness on Palpation (Talisha-wound No Skin Appearance) -Ulcer Cleansing Rinsed/ Irrigated with Saline -Foul Odor after Cleansing No -Anesthetic Used 5% Lidocaine Gel #4 Left Plantar -Combined with other wound No -Current Size (cm) - Length 0.1 -Current Size (cm) - Width 0.1 -Current Size (cm) - Depth 0.1 -Total Square Cm 0.01 -Date of Last Picture (Recall this 02/03/19 field) -Photo Taken Yes -Epithelialization Large 67-100% -Tunneling No -Undermining/Tunneling No -Circular Undermining No -Texture (Talisha-wound Skin Appearance) Callus Scarring -Moisture (Talisha-wound Skin Appearance Assessed ) Dry/Scaly -Color (Talisha-wound Skin Appearance) Assessed -Temperature (Talisha-wound Skin No Abnormality Appearance) (Pt Warm) -Tenderness on Palpation (Talisha-wound No Skin Appearance) -Ulcer Cleansing Rinsed/ Irrigated with Saline -Foul Odor after Cleansing No -Anesthetic Used 5% Lidocaine Gel WC - Nurse 2 - General Ulcer CM Notes Start: 01/13/19 10:47 Freq: Status: Active Protocol: Activity Type Activity Date Activity User E-Sign Co-Sign Detail Recorded Client Recorded Date Recorded By Document 02/03/19 11:50 AN [id number] 02/03/19 12:00 AN 02/03/19 11:50 Wound Center Nurse 2 [Procedure/Treatment] #8 LEFT FIFTH TOE -Time 11:52 -Correct Patient Yes -Correct Side, Site, Position Yes -Correct Procedure Yes -Procedure Performed Yes -Type of Procedure Debridement -Clinical Debridement Subcutaneous -Post Debridement Size (cm) - Length 0.4 -Post Debridement Size (cm) - Width 0.6 -Post Debridement Size (cm) - Depth 0.2 -Total Square Cm 0.24 -Wound/Ulcer Outcome Not Healed -Bleeding Controlled with Pressure -Offloading Yes -Type of Offloading Surgical Shoe -Treatment Response Procedure Tolerated Well #7 left fourth toe lateral -Time 11:52 -Correct Patient Yes -Correct Side, Site, Position Yes -Correct Procedure Yes -Procedure Performed Yes -Type of Procedure Debridement -Clinical Debridement Subcutaneous -Post Debridement Size (cm) - Length 0.5 -Post Debridement Size (cm) - Width 0.5 -Post Debridement Size (cm) - Depth 0.1 -Total Square Cm 0.25 -Wound/Ulcer Outcome Not Healed -Bleeding Controlled with Pressure -Offloading Yes -Type of Offloading Surgical Shoe -Treatment Response Procedure Tolerated Well #6 R 2nd toe -Time 11:52 -Correct Patient Yes -Correct Side, Site, Position Yes -Correct Procedure Yes -Procedure Performed Yes -Type of Procedure Debridement -Clinical Debridement Subcutaneous -Post Debridement Size (cm) - Length 0.2 -Post Debridement Size (cm) - Width 0.3 -Post Debridement Size (cm) - Depth 0.2 -Total Square Cm 0.06 -Wound/Ulcer Outcome Not Healed -Ulcer Cleansing Rinsed/ Irrigated with Saline -Bleeding Controlled with Pressure #4 Left Plantar -Time 11:53 -Correct Patient Yes -Correct Side, Site, Position Yes -Correct Procedure Yes -Procedure Performed Yes -Type of Procedure Debridement -Clinical Debridement Subcutaneous [See Physician Procedure note for Specifics] Pain Scale: 0-10 Numeric [Pain] -Is Patient Pain Free? Yes Musculoskeletal: Tenderness - Some slight tenderness with manipulation of ulcer sites, - - Hammertoe deformities of digits 2?5 of the right and left foot. Bilateral hallux malleus deformities Neurological: Sensory exam intact to light touch and pain Psych/Mental Status: Normal Affect, Appropriate Debridement Note Post-Debridement Measurements/Treatment WC - Nurse 2 - General Ulcer CM Notes Start: 01/13/19 10:47 Freq: Status: Active Protocol: Activity Type Activity Date Activity User E-Sign Co-Sign Detail Recorded Client Recorded Date Recorded By Document 01/13/19 11:24 DV [id number] 01/13/19 11:26 DV Document 01/27/19 10:51 AN [id number] 01/27/19 11:02 AN Document 02/03/19 11:50 AN [id number] 02/03/19 12:00 AN 01/13/19 01/27/19 02/03/19 11:24 10:51 11:50 Wound Center Nurse 2 #8 LEFT FIFTH TOE -Time 11:52 -Correct Patient Yes Yes -Correct Side, Site, Position Yes Yes -Correct Procedure Yes Yes -Procedure Performed Yes Yes -Type of Procedure Debridement Debridement -Clinical Debridement Subcutaneous Subcutaneous -Post Debridement Size (cm) - Length 0.5 0.4 -Post Debridement Size (cm) - Width 0.5 0.6 -Post Debridement Size (cm) - Depth 0.1 0.2 -Total Square Cm 0.25 0.24 -Wound/Ulcer Outcome Healed- Not Healed Surgical Closure -Foul Odor after Cleansing No -Bioengineered Tissue No -Bleeding Controlled with Pressure Pressure -Offloading Yes Yes -Type of Offloading Surgical Shoe Surgical Shoe -Treatment Response Procedure Procedure Tolerated Well Tolerated Well #7 left fourth toe lateral -Time 10:55 11:52 -Correct Patient Yes Yes -Correct Side, Site, Position Yes Yes -Correct Procedure Yes Yes -Procedure Performed Yes Yes -Type of Procedure Debridement Debridement -Clinical Debridement Subcutaneous Subcutaneous -Post Debridement Size (cm) - Length 0.9 0.5 -Post Debridement Size (cm) - Width 0.8 0.5 -Post Debridement Size (cm) - Depth 0.1 0.1 -Total Square Cm 0.72 0.25 -Wound/Ulcer Outcome Not Healed Not Healed -Ulcer Cleansing Rinsed/ Irrigated with Saline -Foul Odor after Cleansing No -Bioengineered Tissue No -Bleeding Controlled with Pressure Pressure -Offloading Yes Yes -Type of Offloading Surgical Shoe -Treatment Response Procedure Procedure Tolerated Well Tolerated Well #6 R 2nd toe -Time 11:25 10:55 11:52 -Correct Patient Yes Yes Yes -Correct Side, Site, Position Yes Yes Yes -Correct Procedure Yes Yes Yes -Procedure Performed Yes Yes Yes -Type of Procedure Debridement Debridement Debridement -Clinical Debridement Subcutaneous Subcutaneous Subcutaneous -Post Debridement Size (cm) - Length 0.3 0.2 0.2 -Post Debridement Size (cm) - Width 0.4 0.3 0.3 -Post Debridement Size (cm) - Depth 0.1 0.2 0.2 -Total Square Cm 0.12 0.06 0.06 -Wound/Ulcer Outcome Not Healed Not Healed Not Healed -Ulcer Cleansing Rinsed/ Rinsed/ Irrigated with Irrigated with Saline Saline -Foul Odor after Cleansing No -Bleeding Controlled with Pressure Pressure -Offloading Yes -Type of Offloading Surgical Shoe -Treatment Response Procedure Tolerated Well #4 Left Plantar -Time 11:26 10:56 11:53 -Correct Patient Yes Yes Yes -Correct Side, Site, Position Yes Yes Yes -Correct Procedure Yes Yes Yes -Procedure Performed Yes Yes Yes -Type of Procedure Debridement Debridement Debridement -Clinical Debridement Subcutaneous Subcutaneous Subcutaneous -Post Debridement Size (cm) - Length 0.1 0.3 -Post Debridement Size (cm) - Width 0.2 0.4 -Post Debridement Size (cm) - Depth 0.1 0.1 -Total Square Cm 0.02 0.12 -Wound/Ulcer Outcome Not Healed -Ulcer Cleansing Rinsed/ Irrigated with Saline -Foul Odor after Cleansing No -Bioengineered Tissue No -Bleeding Controlled with Pressure -Offloading Yes -Treatment Response Procedure Tolerated Well Pain Scale: 0-10 Numeric Is Patient Pain Free? Yes Yes Wound debrided: Right distal second toe Laterality: Right Type of Debridement: Excisional debridement Anesthesia Used: 4% Lidocaine Solution Depth: in the subcutaneous layer Percentage of wound debrided: 100 Instrument Used: #15 blade Tissue Removed: Adherent slough, fibrin, hyperkeratotic tissue Severity: Fat Layer Exposed Amount of bleeding with debridement: Mild Bleeding Controlled with: Pressure Patient tolerated procedure well - Additional Wound Wound debrided: Left lateral fifth toe Laterality: Left Type of Debridement: Excisional debridement Anesthesia Used: 4% Lidocaine Solution Depth: in the subcutaneous layer Percentage of wound debrided: 100 Instrument Used: #15 blade Tissue Removed: Adherent slough, fibrin, hyperkeratotic tissue Severity: Fat Layer Exposed Amount of bleeding with debridement: Mild Bleeding Controlled with: Pressure Patient tolerated procedure: Patient tolerated procedure well - Additional Wound Wound debrided: Left lateral fourth toe Laterality: Left Type of Debridement: Excisional debridement Anesthesia Used: 4% Lidocaine Solution Depth: in the subcutaneous layer Percentage of wound debrided: 100 Instrument Used: #15 blade Tissue Removed: Adherent slough, fibrin, hyperkeratotic tissue Severity: Fat Layer Exposed Amount of bleeding with debridement: Mild Bleeding Controlled with: Pressure Patient tolerated procedure: Patient tolerated procedure well Assessment/Plan Assessment: Ulcer with fat layer exposed to right distal second toe. Ulcer with fat layer exposed to left distal plantar foot. Neuropathy left leg. Other comorbidities Plan: Patient was carefully examined and evaluated again today. Patient continues to be noncompliant in keeping ulcer sites offloaded as instructed at all times. Each ulcer site was carefully debrided as noted in the clinical panel. Next, the ulcer sites were carefully cleansed and then dressed with Keena followed by dry sterile dressing and Tubigrip for compression. The patient is to change his dressings in this manner daily. Patient to continue with bilateral surgical shoes. He is to wear these to keep the ulcer sites offloaded. The importance of keeping pressure off of the ulcer site was stressed in great detail to the patient again today. The importance of proper shoe gear with enough height and width was stressed as well again today. He was instructed to stay away from tight and constricting boots. He admits to not utilizing his offloading mechanisms in his AFO. I stressed the importance of wearing his AFO that he got from [employer], as this has an offloading pocket in the exact area of his ulcer. Patient is non compliant in this and only wears the brace some of the time. We discussed the possibility of having alterations made to this brace if needed in the future. I also discussed the possibility of having the patient in the [facility] should I continue to notice non compliance with keeping pressure off of his foot. He was instructed to keep pressure completely off of the ulcer sites. Patient was educated on all signs and symptoms of local and systemic infection and he is instructed to go to the emergency room immediately should he notice any of these before his visit next week. All questions were answered to the patient's satisfaction. He will follow-up in clinic in 1 week to check on progress of ulcer, but was instructed to follow-up sooner if needed.
[2019-02-10 11:14] VITALS: BP 127/76; PULSE 81; RESP 18; TEMP 36.2; BMI 39.9
--- NOTE | 2019-02-10 11:51 | PCM.WC.PN ---
(1) Chronic ulcer of left foot with fat layer exposed Status: Acute Current Visit: No Code(s): L97.522 - Non-pressure chronic ulcer of other part of left foot with fat layer exposed (2) Ulcer of right foot with fat layer exposed Status: Acute Current Visit: No Code(s): L97.512 - Non-pressure chronic ulcer of other part of right foot with fat layer exposed (3) Other hammer toe(s) (acquired), right foot Status: Acute Current Visit: No Code(s): M20.41 - Other hammer toe(s) (acquired), right foot (4) Other hammer toe(s) (acquired), left foot Status: Acute Current Visit: No Code(s): M20.42 - Other hammer toe(s) (acquired), left foot (5) PVD (peripheral vascular disease) Status: Acute Current Visit: No Code(s): I73.9 - Peripheral vascular disease, unspecified Type of Wound Chief Complaint: Ulcer to left plantar foot History of Wound: 63-year-old white male that likes to wear cowboy boots has developed ulcers on his left foot. This has been going on for approximately for months. Patient has a long history of noncompliance with offloading his ulcer sites. 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 Patient also has a lot of autoimmune disorders and is on medications for that. Progress of Wound: Patient presents for follow up of bilateral ulcers. Patient continues to be non compliant with keeping pressure off of ulcer sites at all times. Patient denies any feelings of nausea, vomiting, fever, chills. - Physical Exam Vital Signs Temp Pulse Resp BP 97.1 F L 81 18 127/76 H 02/10/19 11:14 02/10/19 11:14 02/10/19 11:14 02/10/19 11:14 General: Alert, Oriented x3, Cooperative, No apparent distress Extremities: Capillary Refill Less than 3 Seconds, No Calf Tenderness - Negative Juni and Kaye signs, Diminished Peripheral Pulses - DP and PT pulses faintly palpable bilateral, Edema - Slight lower extremity edema Skin: Ulcer/ Wound - Ulcer to right distal 2nd toe with fat layer exposed. The base is a mixture of adherent slough, fibrin, granular tissue as well as surrounding hyperkeratotic tissue. There is no probing to bone, no tracking, no undermining, no purulence noted today. There is no significant edema, erythema, or increase in warmth to this area. Ulcer to lateral left fifth toe with fat layer exposed. Base is a mixture of adherent slough, fibrin, biofilm, granular tissue, with some surrounding slight hyperkeratotic tissue. There is no purulence, no malodor, no extending or surrounding cellulitis, no increased warmth, no probing to bone, no tracking, and no undermining. Left fourth toe appears healed at this time. Wound Measurements and Assessment WC - Nurse 1 - General Ulcer Measurement Start: 01/13/19 10:47 Freq: Status: Active Protocol: Activity Type Activity Date Activity User E-Sign Co-Sign Detail Recorded Client Recorded Date Recorded By Document 02/10/19 11:14 DL [id number] 02/10/19 11:21 DL 02/10/19 11:14 Wound Center Nurse 1 [Ulcer Assessment] #8 LEFT FIFTH TOE -Current Size (cm) - Length 0.1 -Current Size (cm) - Width 0.1 -Current Size (cm) - Depth 0.1 -Total Square Cm 0.01 -Photo Taken No -Exudate Amt None Present -Wound Margin Flat & Intact -Granulation Amt Large (67-100%) -Granulation Quality Casselman -Necrosis Amt None Present (0 %) -Structure Exposed N/A -Texture (Talisha-wound Skin Appearance) Scarring -Moisture (Talisha-wound Skin Appearance Dry/Scaly ) -Color (Talisha-wound Skin Appearance) Rubor -Temperature (Talisha-wound Skin No Abnormality Appearance) (Pt Warm) -Tenderness on Palpation (Talisha-wound No Skin Appearance) -Ulcer Cleansing Rinsed/ Irrigated with Saline -Foul Odor after Cleansing No -Anesthetic Used 5% Lidocaine Gel #7 left fourth toe lateral -Current Size (cm) - Length 0 -Current Size (cm) - Width 0 -Current Size (cm) - Depth 0 -Total Square Cm 0 -Photo Taken Yes -Exudate Amt None Present -Wound Margin Flat & Intact -Granulation Amt Large (67-100%) -Granulation Quality Casselman -Necrosis Amt None Present (0 %) -Structure Exposed N/A -Texture (Talisha-wound Skin Appearance) Scarring -Moisture (Talisha-wound Skin Appearance No Abnormality ) -Color (Talisha-wound Skin Appearance) No Abnormality -Temperature (Talisha-wound Skin No Abnormality Appearance) (Pt Warm) -Ulcer Cleansing Rinsed/ Irrigated with Saline -Foul Odor after Cleansing No -Anesthetic Used 5% Lidocaine Gel #6 R 2nd toe -Current Size (cm) - Length 0.2 -Current Size (cm) - Width 0.2 -Current Size (cm) - Depth 0.2 -Total Square Cm 0.04 -Photo Taken No -Exudate Amt None Present -Wound Margin Thickened -Granulation Amt Large (67-100%) -Granulation Quality Casselman -Necrosis Amt Small (1-33%) -Necrotic Tissue Type Adherent Slough -Structure Exposed N/A -Texture (Talisha-wound Skin Appearance) Scarring -Moisture (Talisha-wound Skin Appearance Dry/Scaly ) -Color (Tlaisha-wound Skin Appearance) No Abnormality -Temperature (Talisha-wound Skin No Abnormality Appearance) (Pt Warm) -Tenderness on Palpation (Talisha-wound No Skin Appearance) -Ulcer Cleansing Rinsed/ Irrigated with Saline -Foul Odor after Cleansing No -Anesthetic Used 5% Lidocaine Gel [Edema Assessment] -Right Calf (cm) 37 -Right Ankle (cm) 21 -Left Calf (cm) 40.5 -Left Ankle (cm) 22.5 WC - Nurse 2 - General Ulcer CM Notes Start: 01/13/19 10:47 Freq: Status: Active Protocol: Activity Type Activity Date Activity User E-Sign Co-Sign Detail Recorded Client Recorded Date Recorded By Document 02/10/19 11:31 JF [id number] 02/10/19 11:38 JF 02/10/19 11:31 Wound Center Nurse 2 [Procedure/Treatment] #8 LEFT FIFTH TOE -Time 11:31 -Correct Patient Yes -Correct Side, Site, Position Yes -Correct Procedure Yes -Procedure Performed Yes -Type of Procedure Debridement -Clinical Debridement Subcutaneous -Post Debridement Size (cm) - Length 0.2 -Post Debridement Size (cm) - Width 0.4 -Post Debridement Size (cm) - Depth 0.1 -Total Square Cm 0.08 -Wound/Ulcer Outcome Not Healed -Ulcer Cleansing Rinsed/ Irrigated with Saline -Foul Odor after Cleansing No -Bioengineered Tissue No -Bleeding Controlled with Pressure -Offloading No -Treatment Response Procedure Tolerated Well #7 left fourth toe lateral -Correct Patient No -Correct Side, Site, Position No -Correct Procedure No -Procedure Performed No -Post Debridement Size (cm) - Length 0 -Post Debridement Size (cm) - Width 0 -Post Debridement Size (cm) - Depth 0 -Total Square Cm 0 -Wound/Ulcer Outcome Healed- Epithelialized #6 R 2nd toe -Time 11:32 -Correct Patient Yes -Correct Side, Site, Position Yes -Correct Procedure Yes -Procedure Performed Yes -Type of Procedure Debridement -Clinical Debridement Subcutaneous -Post Debridement Size (cm) - Length 0.2 -Post Debridement Size (cm) - Width 0.2 -Post Debridement Size (cm) - Depth 0.2 -Total Square Cm 0.04 -Wound/Ulcer Outcome Not Healed -Ulcer Cleansing Rinsed/ Irrigated with Saline -Foul Odor after Cleansing No -Bioengineered Tissue No -Bleeding Controlled with Pressure -Offloading No -Treatment Response Procedure Tolerated Well [See Physician Procedure note for Specifics] Pain Scale: 0-10 Numeric [Pain] -Is Patient Pain Free? Yes Musculoskeletal: Tenderness - Some tenderness with manipulation of ulcer sites, - - Hammertoe deformities of digits 2?5 of the right and left foot. Bilateral hallux malleus deformities Neurological: Sensory exam intact to light touch and pain Psych/Mental Status: Normal Affect, Appropriate Debridement Note Post-Debridement Measurements/Treatment WC - Nurse 2 - General Ulcer CM Notes Start: 01/13/19 10:47 Freq: Status: Active Protocol: Activity Type Activity Date Activity User E-Sign Co-Sign Detail Recorded Client Recorded Date Recorded By Document 01/13/19 11:24 DV [id number] 01/13/19 11:26 DV Document 01/27/19 10:51 AN [id number] 01/27/19 11:02 AN Document 02/03/19 11:50 AN [id number] 02/03/19 12:00 AN Document 02/10/19 11:31 JF [id number] 02/10/19 11:38 JF 01/13/19 01/27/19 02/03/19 11:24 10:51 11:50 Wound Center Nurse 2 #8 LEFT FIFTH TOE -Time 11:52 -Correct Patient Yes Yes -Correct Side, Site, Position Yes Yes -Correct Procedure Yes Yes -Procedure Performed Yes Yes -Type of Procedure Debridement Debridement -Clinical Debridement Subcutaneous Subcutaneous -Post Debridement Size (cm) - Length 0.5 0.4 -Post Debridement Size (cm) - Width 0.5 0.6 -Post Debridement Size (cm) - Depth 0.1 0.2 -Total Square Cm 0.25 0.24 -Wound/Ulcer Outcome Healed- Not Healed Surgical Closure -Ulcer Cleansing -Foul Odor after Cleansing No -Bioengineered Tissue No -Bleeding Controlled with Pressure Pressure -Offloading Yes Yes -Type of Offloading Surgical Shoe Surgical Shoe -Treatment Response Procedure Procedure Tolerated Well Tolerated Well #7 left fourth toe lateral -Time 10:55 11:52 -Correct Patient Yes Yes -Correct Side, Site, Position Yes Yes -Correct Procedure Yes Yes -Procedure Performed Yes Yes -Type of Procedure Debridement Debridement -Clinical Debridement Subcutaneous Subcutaneous -Post Debridement Size (cm) - Length 0.9 0.5 -Post Debridement Size (cm) - Width 0.8 0.5 -Post Debridement Size (cm) - Depth 0.1 0.1 -Total Square Cm 0.72 0.25 -Wound/Ulcer Outcome Not Healed Not Healed -Ulcer Cleansing Rinsed/ Irrigated with Saline -Foul Odor after Cleansing No -Bioengineered Tissue No -Bleeding Controlled with Pressure Pressure -Offloading Yes Yes -Type of Offloading Surgical Shoe -Treatment Response Procedure Procedure Tolerated Well Tolerated Well #6 R 2nd toe -Time 11:25 10:55 11:52 -Correct Patient Yes Yes Yes -Correct Side, Site, Position Yes Yes Yes -Correct Procedure Yes Yes Yes -Procedure Performed Yes Yes Yes -Type of Procedure Debridement Debridement Debridement -Clinical Debridement Subcutaneous Subcutaneous Subcutaneous -Post Debridement Size (cm) - Length 0.3 0.2 0.2 -Post Debridement Size (cm) - Width 0.4 0.3 0.3 -Post Debridement Size (cm) - Depth 0.1 0.2 0.2 -Total Square Cm 0.12 0.06 0.06 -Wound/Ulcer Outcome Not Healed Not Healed Not Healed -Ulcer Cleansing Rinsed/ Rinsed/ Irrigated with Irrigated with Saline Saline -Foul Odor after Cleansing No -Bioengineered Tissue -Bleeding Controlled with Pressure Pressure -Offloading Yes -Type of Offloading Surgical Shoe -Treatment Response Procedure Tolerated Well #4 Left Plantar -Time 11:26 10:56 11:53 -Correct Patient Yes Yes Yes -Correct Side, Site, Position Yes Yes Yes -Correct Procedure Yes Yes Yes -Procedure Performed Yes Yes Yes -Type of Procedure Debridement Debridement Debridement -Clinical Debridement Subcutaneous Subcutaneous Subcutaneous -Post Debridement Size (cm) - Length 0.1 0.3 -Post Debridement Size (cm) - Width 0.2 0.4 -Post Debridement Size (cm) - Depth 0.1 0.1 -Total Square Cm 0.02 0.12 -Wound/Ulcer Outcome Not Healed -Ulcer Cleansing Rinsed/ Irrigated with Saline -Foul Odor after Cleansing No -Bioengineered Tissue No -Bleeding Controlled with Pressure -Offloading Yes -Treatment Response Procedure Tolerated Well Pain Scale: 0-10 Numeric Is Patient Pain Free? Yes Yes 02/10/19 11:31 Wound Center Nurse 2 #8 LEFT FIFTH TOE -Time 11:31 -Correct Patient Yes -Correct Side, Site, Position Yes -Correct Procedure Yes -Procedure Performed Yes -Type of Procedure Debridement -Clinical Debridement Subcutaneous -Post Debridement Size (cm) - Length 0.2 -Post Debridement Size (cm) - Width 0.4 -Post Debridement Size (cm) - Depth 0.1 -Total Square Cm 0.08 -Wound/Ulcer Outcome Not Healed -Ulcer Cleansing Rinsed/ Irrigated with Saline -Foul Odor after Cleansing No -Bioengineered Tissue No -Bleeding Controlled with Pressure -Offloading No -Type of Offloading -Treatment Response Procedure Tolerated Well #7 left fourth toe lateral -Time -Correct Patient No -Correct Side, Site, Position No -Correct Procedure No -Procedure Performed No -Type of Procedure -Clinical Debridement -Post Debridement Size (cm) - Length 0 -Post Debridement Size (cm) - Width 0 -Post Debridement Size (cm) - Depth 0 -Total Square Cm 0 -Wound/Ulcer Outcome Healed- Epithelialized -Ulcer Cleansing -Foul Odor after Cleansing -Bioengineered Tissue -Bleeding Controlled with -Offloading -Type of Offloading -Treatment Response #6 R 2nd toe -Time 11:32 -Correct Patient Yes -Correct Side, Site, Position Yes -Correct Procedure Yes -Procedure Performed Yes -Type of Procedure Debridement -Clinical Debridement Subcutaneous -Post Debridement Size (cm) - Length 0.2 -Post Debridement Size (cm) - Width 0.2 -Post Debridement Size (cm) - Depth 0.2 -Total Square Cm 0.04 -Wound/Ulcer Outcome Not Healed -Ulcer Cleansing Rinsed/ Irrigated with Saline -Foul Odor after Cleansing No -Bioengineered Tissue No -Bleeding Controlled with Pressure -Offloading No -Type of Offloading -Treatment Response Procedure Tolerated Well #4 Left Plantar -Time -Correct Patient -Correct Side, Site, Position -Correct Procedure -Procedure Performed -Type of Procedure -Clinical Debridement -Post Debridement Size (cm) - Length -Post Debridement Size (cm) - Width -Post Debridement Size (cm) - Depth -Total Square Cm -Wound/Ulcer Outcome -Ulcer Cleansing -Foul Odor after Cleansing -Bioengineered Tissue -Bleeding Controlled with -Offloading -Treatment Response Pain Scale: 0-10 Numeric Is Patient Pain Free? Yes Wound debrided: Right distal second toe Laterality: Right Type of Debridement: Excisional debridement Anesthesia Used: 4% Lidocaine Solution Depth: in the subcutaneous layer Percentage of wound debrided: 100 Instrument Used: #15 blade Tissue Removed: Adherent slough, fibrin, hyperkeratotic tissue Severity: Fat Layer Exposed Amount of bleeding with debridement: Mild Bleeding Controlled with: Pressure Patient tolerated procedure well - Additional Wound Wound debrided: Left lateral fifth toe Laterality: Left Type of Debridement: Excisional debridement Anesthesia Used: 4% Lidocaine Solution Depth: in the subcutaneous layer Percentage of wound debrided: 100 Instrument Used: #15 blade Tissue Removed: Adherent slough, fibrin, hyperkeratotic tissue Severity: Fat Layer Exposed Amount of bleeding with debridement: Mild Bleeding Controlled with: Pressure Patient tolerated procedure: Patient tolerated procedure well Assessment/Plan Assessment: Ulcer with fat layer exposed to right distal second toe. Ulcer with fat layer exposed to left distal plantar foot. Neuropathy left leg. Other comorbidities Plan: Patient was carefully examined and evaluated again today. Left 4th toe ulcer appears healed today. Patient continues to be noncompliant in keeping ulcer sites offloaded as instructed at all times. Each ulcer site was carefully debrided as noted in the clinical panel. Next, the ulcer sites were carefully cleansed and then dressed with Keena followed by dry sterile dressing and Tubigrip for compression. The patient is to change his dressings in this manner daily. Patient to continue with bilateral surgical shoes. He is to wear these to keep the ulcer sites offloaded. The importance of keeping pressure off of the ulcer site was stressed in great detail to the patient again today. The importance of proper shoe gear with enough height and width was stressed as well again today. He was instructed to stay away from tight and constricting boots. He admits to not utilizing his offloading mechanisms in his AFO. I stressed the importance of wearing his AFO that he got from [facility], as this has an offloading pocket in the exact area of his ulcer. Patient is non compliant in this and only wears the brace some of the time. We discussed the possibility of having alterations made to this brace if needed in the future. I also discussed the possibility of having the patient in the [facility] should I continue to notice non compliance with keeping pressure off of his foot. He was instructed to keep pressure completely off of the ulcer sites. Patient was educated on all signs and symptoms of local and systemic infection and he is instructed to go to the emergency room immediately should he notice any of these before his visit next week. All questions were answered to the patient's satisfaction. He will follow-up in clinic in 1 week to check on progress of ulcer, but was instructed to follow-up sooner if needed.
== END 2019-02-11 23:59 ==
LOC: WC 11:15
PROVIDERS: Referring Provider Podiatrist; Visit Provider Podiatrist
DX: I73.9 Peripheral vascular disease, unspecified (principal); L97.522 Non-pressure chronic ulcer of other part of left foot with fat layer exposed; L97.512 Non-pressure chronic ulcer of other part of right foot with fat layer exposed; M20.42 Other hammer toe(s) (acquired), left foot; M20.41 Other hammer toe(s) (acquired), right foot; R60.0 Localized edema; G62.9 Polyneuropathy, unspecified; Z91.19 Patient's noncompliance with other medical treatment and regimen
CPT/HCPCS: 11042

== ENCOUNTER 2019-03-10 11:30 | Outpatient (RCR) | payer MEDICARE, SELFPAY ==
[2019-02-12 00:45] VITALS: BP 127/76; PULSE 81; RESP 18; TEMP 36.2
[2019-03-03 11:18] VITALS: BP 124/76; PULSE 80; RESP 18; TEMP 36.4; BMI 39.9
--- NOTE | 2019-03-03 12:28 | PN.PCM_ITS ---
(1) Ulcer of right foot with fat layer exposed Status: Acute Current Visit: No Code(s): L97.512 - Non-pressure chronic ulcer of other part of right foot with fat layer exposed (2) Other hammer toe(s) (acquired), right foot Status: Acute Current Visit: No Code(s): M20.41 - Other hammer toe(s) (acquired), right foot (3) Other hammer toe(s) (acquired), left foot Status: Acute Current Visit: No Code(s): M20.42 - Other hammer toe(s) (acquired), left foot (4) PVD (peripheral vascular disease) Status: Acute Current Visit: No Code(s): I73.9 - Peripheral vascular disease, unspecified (5) Delayed wound healing Status: Acute Current Visit: No Code(s): T14.8XXD - Other injury of unspecified body region, subsequent encounter Type of Wound Date of Service: 03/03/19 Chief Complaint: Ulcer to left plantar foot History of Wound: 63-year-old white male that likes to wear cowboy boots has developed ulcers on his left foot. This has been going on for approximately for months. Patient has a long history of noncompliance with offloading his ulcer sites. 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 Patient also has a lot of autoimmune disorders and is on medications for that. Progress of Wound: Patient presents for follow up of bilateral ulcers. Patient's ulcers to left toes are healed. Ulcer still present to distal right 2nd toe. Patient continues to be non compliant with keeping pressure off of ulcer sites at all times. Patient denies any feelings of nausea, vomiting, fever, chills. - Physical Exam Vital Signs Temp Pulse Resp BP 97.5 F L 80 18 124/76 H 03/03/19 11:18 03/03/19 11:18 03/03/19 11:18 03/03/19 11:18 General: Alert, Oriented x3, Cooperative, No apparent distress Extremities: Capillary Refill Less than 3 Seconds, No Calf Tenderness - Negative Juni and Kaye signs, Diminished Peripheral Pulses - DP and PT pulses faintly palpable bilateral, Edema - Slight lower extremity edema Skin: Ulcer/ Wound - Ulcer to right distal 2nd toe with fat layer exposed. The base is a mixture of adherent slough, fibrin, granular tissue as well as surrounding hyperkeratotic tissue. There is no probing to bone, no tracking, no undermining, no purulence noted today. There is no significant edema, erythema, or increase in warmth to this area. Ulcer to lateral left fifth toe and fourth toe are healed today., - - Hammertoe deformities of digits 2?5 of the right and left foot. Bilateral hallux malleus deformities Wound Measurements and Assessment WC - Nurse 1 - General Ulcer Measurement Start: 03/03/19 11:18 Freq: Status: Active Protocol: Activity Type Activity Date Activity User E-Sign Co-Sign Detail Recorded Client Recorded Date Recorded By Document 03/03/19 11:18 DL [id number] 03/03/19 11:28 DL 03/03/19 11:18 Wound Center Nurse 1 [Ulcer Assessment] #8 LEFT FIFTH TOE -Current Size (cm) - Length 0 -Current Size (cm) - Width 0 -Current Size (cm) - Depth 0 -Total Square Cm 0 -Photo Taken No -Exudate Amt None Present -Wound Margin Flat & Intact -Granulation Amt Large (67-100%) -Granulation Quality [place] -Necrosis Amt None Present (0 %) -Structure Exposed N/A -Texture (Talisha-wound Skin Appearance) Scarring -Moisture (Talisha-wound Skin Appearance No Abnormality ) -Color (Talisha-wound Skin Appearance) No Abnormality -Temperature (Talisha-wound Skin No Abnormality Appearance) (Pt Warm) -Ulcer Cleansing Rinsed/ Irrigated with Saline -Foul Odor after Cleansing No -Anesthetic Used 5% Lidocaine Gel #6 R 2nd toe -Current Size (cm) - Length 0.1 -Current Size (cm) - Width 0.1 -Current Size (cm) - Depth 0.1 -Total Square Cm 0.01 -Photo Taken No -Exudate Amt None Present -Wound Margin Flat & Intact -Granulation Amt Large (67-100%) -Granulation Quality [place] -Necrosis Amt None Present (0 %) -Structure Exposed N/A -Texture (Talisha-wound Skin Appearance) Scarring -Moisture (Talisha-wound Skin Appearance No Abnormality ) -Color (Talisha-wound Skin Appearance) No Abnormality, Ecchymosis -Tenderness on Palpation (Talisha-wound No Skin Appearance) -Ulcer Cleansing Rinsed/ Irrigated with Saline -Foul Odor after Cleansing No [Edema Assessment] -Right Calf (cm) 40.5 -Right Ankle (cm) 23.5 -Left Calf (cm) 36 -Left Ankle (cm) 21 WC - Nurse 2 - General Ulcer CM Notes Start: 03/03/19 11:18 Freq: Status: Active Protocol: Activity Type Activity Date Activity User E-Sign Co-Sign Detail Recorded Client Recorded Date Recorded By Document 03/03/19 11:30 DL [id number] 03/03/19 11:40 DL 03/03/19 11:30 Wound Center Nurse 2 [Procedure/Treatment] #8 LEFT FIFTH TOE -Time 11:35 -Correct Patient Yes -Correct Side, Site, Position Yes -Correct Procedure Yes -Procedure Performed Yes -Type of Procedure Debridement -Clinical Debridement Subcutaneous -Wound/Ulcer Outcome Not Healed -Ulcer Cleansing Rinsed/ Irrigated with Saline -Foul Odor after Cleansing No -Bioengineered Tissue No -Bleeding Controlled with Pressure -Offloading Yes -Type of Offloading Surgical Shoe -Treatment Response Procedure Tolerated Well #6 R 2nd toe -Time 11:34 -Correct Patient Yes -Correct Side, Site, Position Yes -Correct Procedure Yes -Procedure Performed Yes -Type of Procedure Debridement -Clinical Debridement Subcutaneous -Post Debridement Size (cm) - Length 0.2 -Post Debridement Size (cm) - Width 0.2 -Post Debridement Size (cm) - Depth 0.1 -Total Square Cm 0.04 -Wound/Ulcer Outcome Not Healed -Ulcer Cleansing Rinsed/ Irrigated with Saline -Foul Odor after Cleansing No -Bioengineered Tissue No -Bleeding Controlled with Pressure -Offloading Yes -Type of Offloading Surgical Shoe -Treatment Response Procedure Tolerated Well [See Physician Procedure note for Specifics] Pain Scale: 0-10 Numeric [Pain] -Is Patient Pain Free? Yes Musculoskeletal: Tenderness - Slight tenderness with manipulation of ulcer site Neurological: Sensory exam intact to light touch and pain Psych/Mental Status: Normal Affect, Appropriate Debridement Note Post-Debridement Measurements/Treatment WC - Nurse 2 - General Ulcer CM Notes Start: 03/03/19 11:18 Freq: Status: Active Protocol: Activity Type Activity Date Activity User E-Sign Co-Sign Detail Recorded Client Recorded Date Recorded By Document 03/03/19 11:30 DL [id number] 03/03/19 11:40 DL 03/03/19 11:30 Wound Center Nurse 2 #8 LEFT FIFTH TOE -Time 11:35 -Correct Patient Yes -Correct Side, Site, Position Yes -Correct Procedure Yes -Procedure Performed Yes -Type of Procedure Debridement -Clinical Debridement Subcutaneous -Wound/Ulcer Outcome Not Healed -Ulcer Cleansing Rinsed/ Irrigated with Saline -Foul Odor after Cleansing No -Bioengineered Tissue No -Bleeding Controlled with Pressure -Offloading Yes -Type of Offloading Surgical Shoe -Treatment Response Procedure Tolerated Well #6 R 2nd toe -Time 11:34 -Correct Patient Yes -Correct Side, Site, Position Yes -Correct Procedure Yes -Procedure Performed Yes -Type of Procedure Debridement -Clinical Debridement Subcutaneous -Post Debridement Size (cm) - Length 0.2 -Post Debridement Size (cm) - Width 0.2 -Post Debridement Size (cm) - Depth 0.1 -Total Square Cm 0.04 -Wound/Ulcer Outcome Not Healed -Ulcer Cleansing Rinsed/ Irrigated with Saline -Foul Odor after Cleansing No -Bioengineered Tissue No -Bleeding Controlled with Pressure -Offloading Yes -Type of Offloading Surgical Shoe -Treatment Response Procedure Tolerated Well Pain Scale: 0-10 Numeric Is Patient Pain Free? Yes Wound debrided: Right distal second toe Laterality: Right Type of Debridement: Excisional debridement Anesthesia Used: 4% Lidocaine Solution Depth: in the subcutaneous layer Percentage of wound debrided: 100 Instrument Used: #15 blade Tissue Removed: Adherent slough, fibrin, hyperkeratotic tissue Severity: Fat Layer Exposed Amount of bleeding with debridement: Mild Bleeding Controlled with: Pressure Patient tolerated procedure well Assessment/Plan Assessment: Ulcer with fat layer exposed to right distal second toe. Ulcer with fat layer exposed to left distal plantar foot. Neuropathy left leg. Other comorbidities Plan: Patient was carefully examined and evaluated again today. Left 5th toe ulcer appears healed today. Left 4th toe remains healed. Patient continues to be noncompliant in keeping ulcer sites offloaded as instructed at all times. Ulcer site to distal 2nd toe was carefully debrided as noted in the clinical panel. Next, the ulcer site was carefully cleansed and then dressed with Keena followed by dry sterile dressing and Tubigrip for compression. The patient is to change his dressings in this manner daily. Patient to continue with bilateral surgical shoes. He is to wear these to keep the ulcer sites offloaded. The importance of keeping pressure off of the ulcer site was stressed in great detail to the patient again today. The importance of proper shoe gear with enough height and width was stressed as well again today. He was instructed to stay away from tight and constricting boots. He admits to not utilizing his offloading mechanisms in his AFO. I stressed the importance of wearing his AFO that he got from [employer], as this has an offloading pocket in the exact area of his ulcer. Patient is non compliant in this and only wears the brace some of the time. We discussed the possibility of having alterations made to this brace if needed in the future. He was instructed to keep pressure completely off of the ulcer site. Patient was educated on all signs and symptoms of local and systemic infection and he is instructed to go to the emergency room immediately should he notice any of these before his visit next week. All questions were answered to the patient's satisfaction. He will follow-up in clinic in 1 week to check on progress of ulcer, but was instructed to follow-up sooner if needed.
[2019-03-10 11:23] VITALS: BP 127/89; PULSE 75; RESP 18; TEMP 36.1; BMI 39.9
--- NOTE | 2019-03-10 11:46 | PCM.WC.PN ---
(1) Ulcer of right foot with fat layer exposed Status: Acute Current Visit: No Code(s): L97.512 - Non-pressure chronic ulcer of other part of right foot with fat layer exposed (2) Other hammer toe(s) (acquired), right foot Status: Acute Current Visit: No Code(s): M20.41 - Other hammer toe(s) (acquired), right foot (3) Other hammer toe(s) (acquired), left foot Status: Acute Current Visit: No Code(s): M20.42 - Other hammer toe(s) (acquired), left foot (4) PVD (peripheral vascular disease) Status: Acute Current Visit: No Code(s): I73.9 - Peripheral vascular disease, unspecified (5) Delayed wound healing Status: Acute Current Visit: No Code(s): T14.8XXD - Other injury of unspecified body region, subsequent encounter Type of Wound Date of Service: 03/10/19 Chief Complaint: Ulcer to left plantar foot History of Wound: 63-year-old white male that likes to wear cowboy boots has developed ulcers on his left foot. This has been going on for approximately for months. Patient has a long history of noncompliance with offloading his ulcer sites. 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 Patient also has a lot of autoimmune disorders and is on medications for that. Progress of Wound: Ulcer appears healed today. Patient denies any feelings of nausea, vomiting, fever, chills. - Physical Exam Vital Signs Temp Pulse Resp BP 97.0 F L 75 18 127/89 H 03/10/19 11:23 03/10/19 11:23 03/10/19 11:23 03/10/19 11:23 General: Alert, Oriented x3, Cooperative, No apparent distress Extremities: Capillary Refill Less than 3 Seconds, No Calf Tenderness - Negative Juni and Kaye signs, Diminished Peripheral Pulses, Edema - Slight lower extremity edema Skin: Ulcer/ Wound - Ulcer to right second toe appears healed today with no signs or symptoms of surrounding infection. Wound Measurements and Assessment WC - Nurse 1 - General Ulcer Measurement Start: 03/03/19 11:18 Freq: Status: Active Protocol: Activity Type Activity Date Activity User E-Sign Co-Sign Detail Recorded Client Recorded Date Recorded By Document 03/10/19 11:23 VT [id number] 03/10/19 11:26 VT 03/10/19 11:23 Wound Center Nurse 1 [Ulcer Assessment] #6 R 2nd toe -Current Size (cm) - Length 0.1 -Current Size (cm) - Width 0.1 -Current Size (cm) - Depth 0.1 -Total Square Cm 0.01 -Epithelialization Large 67-100% -Exudate Amt None Present -Wound Margin Flat & Intact -Granulation Amt Large (67-100%) -Granulation Quality [place] -Texture (Talisha-wound Skin Appearance) Assessed, Scarring -Moisture (Talisha-wound Skin Appearance Assessed,Dry/ ) Scaly -Color (Talisha-wound Skin Appearance) Assessed -Temperature (Talisha-wound Skin No Abnormality Appearance) (Pt Warm) -Tenderness on Palpation ([place]-wound No Skin Appearance) -Ulcer Cleansing Rinsed/ Irrigated with Saline -Foul Odor after Cleansing No -Anesthetic Used 5% Lidocaine Gel [Edema Assessment] -Right Calf (cm) 42.6 -Right Ankle (cm) 24.5 WC - Nurse 2 - General Ulcer CM Notes Start: 03/03/19 11:18 Freq: Status: Active Protocol: Activity Type Activity Date Activity User E-Sign Co-Sign Detail Recorded Client Recorded Date Recorded By Document 03/10/19 11:39 [id number] 03/10/19 11:39 AN 03/10/19 11:39 Pain Scale: 0-10 Numeric [Pain] -Is Patient Pain Free? Yes Musculoskeletal: - - No tenderness appreciated today Neurological: Sensory exam intact to light touch and pain Psych/Mental Status: Normal Affect, Appropriate Debridement Note Post-Debridement Measurements/Treatment - Nurse 2 - General Ulcer CM Notes Start: 03/03/19 11:18 Freq: Status: Active Protocol: Activity Type Activity Date Activity User E-Sign Co-Sign Detail Recorded Client Recorded Date Recorded By Document 03/03/19 11:30 DL [id number] 03/03/19 11:40 Document 03/10/19 11:39 [id number] 03/10/19 11:39 03/03/19 03/10/19 11:30 11:39 Wound Center Nurse 2 #8 LEFT FIFTH TOE -Time 11:35 -Correct Patient Yes -Correct Side, Site, Position Yes -Correct Procedure Yes -Procedure Performed Yes -Type of Procedure Debridement -Clinical Debridement Subcutaneous -Wound/Ulcer Outcome Not Healed -Ulcer Cleansing Rinsed/ Irrigated with Saline -Foul Odor after Cleansing No -Bioengineered Tissue No -Bleeding Controlled with Pressure -Offloading Yes -Type of Offloading Surgical Shoe -Treatment Response Procedure Tolerated Well #6 R 2nd toe -Time 11:34 -Correct Patient Yes -Correct Side, Site, Position Yes -Correct Procedure Yes -Procedure Performed Yes -Type of Procedure Debridement -Clinical Debridement Subcutaneous -Post Debridement Size (cm) - Length 0.2 -Post Debridement Size (cm) - Width 0.2 -Post Debridement Size (cm) - Depth 0.1 -Total Square Cm 0.04 -Wound/Ulcer Outcome Not Healed -Ulcer Cleansing Rinsed/ Irrigated with Saline -Foul Odor after Cleansing No -Bioengineered Tissue No -Bleeding Controlled with Pressure -Offloading Yes -Type of Offloading Surgical Shoe -Treatment Response Procedure Tolerated Well Pain Scale: 0-10 Numeric Is Patient Pain Free? Yes Yes No debridement was completed today Assessment/Plan Assessment: Ulcer with fat layer exposed to right distal second toe. Ulcer with fat layer exposed to left distal plantar foot. Neuropathy left leg. Other comorbidities Plan: Patient was carefully examined and evaluated again today. Ulcer site to distal right second toe appears healed today. The patient was instructed on the importance of keeping the ends of toes as well as the bottom of his left foot offloaded all times with the help of offloading shoes and his left AFO brace with offloading pocket. The importance of keeping pressure off of the ulcer site was stressed in great detail to the patient again today in keeping the patient healed. The importance of proper shoe gear with enough height and width was stressed as well again today. He was instructed to stay away from tight and constricting boots. I stressed the importance of wearing his AFO that he got from [employer], as this has an offloading pocket in the exact area of his previous ulcer. Patient is non compliant in this and only wears the brace some of the time. We discussed the possibility of having alterations made to this brace if needed in the future. Patient was educated on all signs and symptoms of local and systemic infection and he is instructed to go to the emergency room immediately should he notice any of these. All questions were answered to the patient's satisfaction. Patient will be discharged from the wound healing center at this time, but was instructed to call the wound healing center if needed for any reason in the future.
== END 2019-03-13 23:59 ==
LOC: WC 11:30
PROVIDERS: Referring Provider Podiatrist; Visit Provider Podiatrist
DX: I73.9 Peripheral vascular disease, unspecified (principal); L97.512 Non-pressure chronic ulcer of other part of right foot with fat layer exposed; M20.41 Other hammer toe(s) (acquired), right foot; M20.42 Other hammer toe(s) (acquired), left foot; G57.92 Unspecified mononeuropathy of left lower limb; Z91.19 Patient's noncompliance with other medical treatment and regimen; R60.0 Localized edema
CPT/HCPCS: 11042; 99212; G0463

== ENCOUNTER 2019-07-12 15:00 | Outpatient (RCR) | payer MEDICARE, SELFPAY ==
[2019-06-23 11:03] VITALS: BP 135/86; PULSE 86; RESP 16; TEMP 36.6; BMI 40.1
--- NOTE | 2019-06-23 11:43 | PCM.WC.HP ---
(1) Chronic ulcer of left foot with fat layer exposed Status: Acute Current Visit: No Code(s): L97.522 - Non-pressure chronic ulcer of other part of left foot with fat layer exposed (2) Neuropathy of left lower extremity Status: Acute Current Visit: No Code(s): G57.92 - Unspecified mononeuropathy of left lower limb (3) Other hammer toe(s) (acquired), left foot Status: Acute Current Visit: No Code(s): M20.42 - Other hammer toe(s) (acquired), left foot (4) PVD (peripheral vascular disease) Status: Suspected Current Visit: No Code(s): I73.9 - Peripheral vascular disease, unspecified (5) Non-compliance Status: Acute Current Visit: Yes Code(s): Z91.19 - Patient's noncompliance with other medical treatment and regimen History of Present Illness Date of Service: 06/23/19 Chief Complaint: Ulcer to left plantar foot History of Wound: This 64-year-old male presents back to the wound healing center today for re-ulceration to the distal plantar aspect of his left foot. Patient states she noticed the area starting to break back down a couple of weeks ago and is slowly been getting worse. He says he wanted to get in before it got bad. Patient denies any redness to the area or any drainage from the ulcer site. He says he has been keeping it dressed with a gauze dressing. He denies any feelings of nausea, vomiting, fever, chills. Past Medical History Surgical History: - - Hx L ankle/heel surgery 2008 Allergies/Adverse Reactions: Allergies No Known Allergies Allergy (Verified 06/23/19 11:07) Home Medications: Ambulatory Orders Medication Instructions Recorded Adalimumab [Humira] 10 mg SQ 08/11/17 Allopurinol 100 mg PO DAILY 08/11/17 Aspirin [Aspirin, Baby] 81 mg PO DAILY@0800 08/11/17 Budesonide/Formoterol 160/4.5 2 puff INHALATION DAILY PRN 08/11/17 [Symbicort 160/4.5 Mcg Inhaler (SP)] Citalopram [Celexa] 40 mg PO DAILY 08/11/17 Docusate Sodium [Colace] 100 mg PO DAILY 08/11/17 Gabapentin [Neurontin] 600 mg PO TID 08/11/17 Modafinil [Provigil] 100 mg PO DAILY 08/11/17 Naproxen [Naprosyn] 500 mg PO BID PRN PRN 08/11/17 Tamsulosin HCl [Flomax] 0.4 mg PO DAILY 08/11/17 Tizanidine HCl 4 mg PO PRN PRN 08/11/17 Fluticasone/Salmeterol [Advair 1 each IH DAILY PRN PRN 04/30/18 250-50 Diskus] Lactobacillus Acidophilus 1 each PO DAILY 12/16/18 [Acidophilus] Smoking Status: Never smoker Review of Systems Constitutional: Denies: Chills, Fever, Weight Change Cardiovascular: Denies: Chest Pain, Palpitations Respiratory: Denies: Cough, Shortness of Breath Gastrointestinal: Denies: Diarrhea, Nausea, Vomiting Skin: Reports: - - Ulcer to distal left foot - Physical Exam Vital Signs Temp Pulse Resp BP 98 F 86 16 135/86 H 06/23/19 11:03 06/23/19 11:03 06/23/19 11:03 06/23/19 11:03 General: Alert, Oriented x3, Cooperative, No apparent distress Extremities: Capillary Refill Less than 3 Seconds, No Calf Tenderness - Negative Juni and Kaye signs, Diminished Peripheral Pulses - DP and PT pulses faintly palpable bilateral, Edema - Slight lower extremity edema Skin: Ulcer/ Wound - Ulcer to the left distal plantar forefoot with fat layer exposed. The base is a mixture of devitalized subcutaneous tissue, adherent slough, fibrin, biofilm, granular tissue as well as surrounding hyperkeratotic tissue. There is no probing to bone, no tracking, no undermining, no purulence, no extending or surrounding cellulitis, and no increase in warmth to the area at this time. Wound Measurements and Assessment WC - Nurse 1 - General Ulcer Measurement Start: 06/23/19 11:03 Freq: Status: Active Protocol: Activity Type Activity Date Activity User E-Sign Co-Sign Detail Recorded Client Recorded Date Recorded By Document 06/23/19 11:03 [facility] [id number] 06/23/19 11:07 [facility] 06/23/19 11:03 Wound Center Nurse 1 [Ulcer Assessment] #9- L PLANTAR FOOT -Combined with other wound No -Current Size (cm) - Length 0.1 -Current Size (cm) - Width 0.1 -Current Size (cm) - Depth 0.1 -Total Square Cm 0.01 -Date of Last Picture (Recall this 06/23/19 field) -Photo Taken Yes -Epithelialization None Present -Tunneling No -Undermining/Tunneling No -Circular Undermining No -Exudate Amt None Present -Wound Margin Distinct, Outline Attached -Granulation Amt None Present (0 %) -Slough/Fibrin Yes -Necrosis Amt Large (67-100%) -Necrotic Tissue Type Adherent Slough -Texture (Talisha-wound Skin Appearance) Callus, Localized Edema -Moisture (Talisha-wound Skin Appearance Assessed,Dry/ ) Scaly -Color (Talisha-wound Skin Appearance) Assessed -Temperature (Talisha-wound Skin No Abnormality Appearance) (Pt Warm) -Tenderness on Palpation (Talisha-wound No Skin Appearance) -Ulcer Cleansing Rinsed/ Irrigated with Saline -Foul Odor after Cleansing No -Anesthetic Used 5% Lidocaine Gel WC - Nurse 2 - General Ulcer CM Notes Start: 06/23/19 11:03 Freq: Status: Active Protocol: Activity Type Activity Date Activity User E-Sign Co-Sign Detail Recorded Client Recorded Date Recorded By Document 06/23/19 11:21 AN [id number] 06/23/19 11:27 AN 06/23/19 11:21 Wound Center Nurse 2 [Procedure/Treatment] -Time 11:24 -Correct Patient Yes -Correct Side, Site, Position Yes -Correct Procedure Yes -Procedure Performed Yes -Type of Procedure Debridement -Clinical Debridement Subcutaneous -Post Debridement Size (cm) - Length 0.4 -Post Debridement Size (cm) - Width 0.9 -Post Debridement Size (cm) - Depth 0.2 -Total Square Cm 0.36 -Wound/Ulcer Outcome Not Healed -Ulcer Cleansing Rinsed/ Irrigated with Saline -Foul Odor after Cleansing No -Bioengineered Tissue No -Bleeding Controlled with Pressure -Offloading No -Treatment Response Procedure Tolerated Well [See Physician Procedure note for Specifics] Pain Scale: 0-10 Numeric [Pain] -Is Patient Pain Free? Yes Musculoskeletal: Tenderness - Slight tenderness at times with manipulation of ulcer site, - - Hammertoe deformities of digits 2?5 of the right and left foot. Bilateral hallux malleus deformities Neurological: Sensory exam intact to light touch and pain - With some altered lower extremity sensation consistent with neuropathy Psych/Mental Status: Normal Affect, Appropriate Debridement Note Post-Debridement Measurements/Treatment WC - Nurse 2 - General Ulcer CM Notes Start: 06/23/19 11:03 Freq: Status: Active Protocol: Activity Type Activity Date Activity User E-Sign Co-Sign Detail Recorded Client Recorded Date Recorded By Document 06/23/19 11:21 AN [id number] 06/23/19 11:27 AN 06/23/19 11:21 Wound Center Nurse 2 #9- L PLANTAR FOOT -Time 11:24 -Correct Patient Yes -Correct Side, Site, Position Yes -Correct Procedure Yes -Procedure Performed Yes -Type of Procedure Debridement -Clinical Debridement Subcutaneous -Post Debridement Size (cm) - Length 0.4 -Post Debridement Size (cm) - Width 0.9 -Post Debridement Size (cm) - Depth 0.2 -Total Square Cm 0.36 -Wound/Ulcer Outcome Not Healed -Ulcer Cleansing Rinsed/ Irrigated with Saline -Foul Odor after Cleansing No -Bioengineered Tissue No -Bleeding Controlled with Pressure -Offloading No -Treatment Response Procedure Tolerated Well Pain Scale: 0-10 Numeric Is Patient Pain Free? Yes Wound debrided: Left distal plantar forefoot Laterality: Left Type of Debridement: Excisional debridement Depth: in the subcutaneous layer Percentage of wound debrided: 100 Instrument Used: #15 blade, - - Tissue nipper Tissue Removed: Devitalized subcutaneous tissue, adherent slough, fibrin, biofilm Severity: Fat Layer Exposed Amount of bleeding with debridement: Mild Bleeding Controlled with: Pressure Patient tolerated procedure well Assessment/Plan Active Problems Non-compliance (Acute) Assessment: Ulcer with fat layer exposed to right distal second toe. Ulcer with fat layer exposed to left distal plantar foot. Neuropathy left leg. Other comorbidities Plan: Patient was carefully examined and evaluated today for re-ulceration of left plantar distal foot. This patient has a long history of noncompliance with keeping his feet offloaded the way he is supposed to and wearing appropriate shoes. Patient is also known to be noncompliant with wearing his AFO to the left side as instructed. The ulcer site was carefully debrided in subcutaneous fashion as noted in the clinical panel. Once complete the site was then dressed with Keena to the base followed by dry sterile dressing. The patient was instructed on the importance of keeping the ends of toes as well as the bottom of his left foot offloaded all times with the help of offloading shoes and his left AFO brace with offloading pocket. The importance of keeping pressure off of the ulcer site was stressed in great detail to the patient again today. The importance of proper shoe gear with enough height and width was stressed as well again today. He was instructed to stay away from tight and constricting boots. I stressed the importance of wearing his AFO that he got from [employer], as this has an offloading pocket in the exact area of his previous ulcer. We again discussed the possibility of having alterations made to this brace if needed in the future. Patient was educated on all signs and symptoms of local and systemic infection and he is instructed to go to the emergency room immediately should he notice any of these. All questions were answered to the patient's satisfaction. Patient will follow-up at the wound healing center in 1 week to check on progress, but was instructed to follow-up sooner if needed before then.
[2019-06-30 10:53] VITALS: BP 129/76; PULSE 87; RESP 18; TEMP 36.5; BMI 40.1
--- NOTE | 2019-06-30 11:53 | PN.PCM_ITS ---
(1) Chronic ulcer of left foot with fat layer exposed Status: Acute Current Visit: No Code(s): L97.522 - Non-pressure chronic ulcer of other part of left foot with fat layer exposed (2) Neuropathy of left lower extremity Status: Acute Current Visit: No Code(s): G57.92 - Unspecified mononeuropathy of left lower limb (3) Other hammer toe(s) (acquired), left foot Status: Acute Current Visit: No Code(s): M20.42 - Other hammer toe(s) (acquired), left foot (4) PVD (peripheral vascular disease) Status: Suspected Current Visit: No Code(s): I73.9 - Peripheral vascular disease, unspecified (5) Non-compliance Status: Acute Current Visit: Yes Code(s): Z91.19 - Patient's noncompliance with other medical treatment and regimen Type of Wound Date of Service: 06/30/19 Chief Complaint: Ulcer to left plantar foot History of Wound: This 64-year-old male presents back to the wound healing center today for re-ulceration to the distal plantar aspect of his left foot. Patient states she noticed the area starting to break back down a couple of weeks ago and is slowly been getting worse. He says he wanted to get in before it got bad. Patient denies any redness to the area or any drainage from the ulcer site. He says he has been keeping it dressed with a gauze dressing. He denies any feelings of nausea, vomiting, fever, chills. Progress of Wound: Ulcer site to distal left plantar foot continues to show improvement. Patient denies any feelings of nausea, vomiting, fever, chills. - Physical Exam Vital Signs Temp Pulse Resp BP 97.7 F L 87 18 129/76 H 06/30/19 10:53 06/30/19 10:53 06/30/19 10:53 06/30/19 10:53 General: Alert, Oriented x3, Cooperative, No apparent distress Extremities: Capillary Refill Less than 3 Seconds, No Calf Tenderness - Negative Juni and Kaye signs, Diminished Peripheral Pulses - DP and PT pulses faintly palpable bilateral, Edema - Slight lower extremity edema Skin: Ulcer/ Wound - Ulcer to the left distal plantar forefoot with fat layer exposed. The base is a mixture of devitalized subcutaneous tissue, adherent slough, fibrin, biofilm, granular tissue as well as surrounding hyperkeratotic tissue. There is no probing to bone, no tracking, no undermining, no purulence, no extending or surrounding cellulitis, and no increase in warmth to the area at this time., - - Hammertoe deformities of digits 2?5 of the right and left foot. Bilateral hallux malleus deformities Wound Measurements and Assessment WC - Nurse 1 - General Ulcer Measurement Start: 06/23/19 11:03 Freq: Status: Active Protocol: Activity Type Activity Date Activity User E-Sign Co-Sign Detail Recorded Client Recorded Date Recorded By Document 06/30/19 10:53 RB [id number] 06/30/19 11:00 RB 06/30/19 10:53 Wound Center Nurse 1 [Ulcer Assessment] #9- L PLANTAR FOOT -Combined with other wound No -Current Size (cm) - Length 0.1 -Current Size (cm) - Width 0.2 -Current Size (cm) - Depth 0.2 -Total Square Cm 0.02 -Tunneling No -Undermining/Tunneling Yes -Undermining/Tunneling Starts (O' 12 clock) -Undermining/Tunneling Ends (O'clock) 12 -Maximum Distance (cm) 0.2 -Circular Undermining Yes -Exudate Amt Small -Exudate Type Serosanguineous -Wound Margin Thickened -Granulation Amt Medium (34-66%) -Granulation Quality [place] -Slough/Fibrin Yes -Necrosis Amt Small (1-33%) -Necrotic Tissue Type Adherent Slough -Structure Exposed N/A -Texture (Talisha-wound Skin Appearance) Callus -Moisture (Talisha-wound Skin Appearance Assessed ) -Color (Talisha-wound Skin Appearance) Assessed -Temperature (Talisha-wound Skin No Abnormality Appearance) (Pt Warm) -Tenderness on Palpation (Talisha-wound No Skin Appearance) -Ulcer Cleansing Wound Cleanser -Foul Odor after Cleansing No -Anesthetic Used 5% Lidocaine Gel WC - Nurse 2 - General Ulcer CM Notes Start: 06/23/19 11:03 Freq: Status: Active Protocol: Activity Type Activity Date Activity User E-Sign Co-Sign Detail Recorded Client Recorded Date Recorded By Document 06/30/19 11:05 AN [id number] 06/30/19 11:08 AN 06/30/19 11:05 Wound Center Nurse 2 [Procedure/Treatment] -Time 11:06 -Correct Patient Yes -Correct Side, Site, Position Yes -Correct Procedure Yes -Procedure Performed Yes -Type of Procedure Debridement -Clinical Debridement Subcutaneous -Post Debridement Size (cm) - Length 0.3 -Post Debridement Size (cm) - Width 0.6 -Post Debridement Size (cm) - Depth 0.2 -Total Square Cm 0.18 -Wound/Ulcer Outcome Not Healed -Ulcer Cleansing Rinsed/ Irrigated with Saline -Foul Odor after Cleansing No -Bioengineered Tissue No -Bleeding Controlled with Pressure -Offloading Yes -Type of Offloading Surgical Shoe -Treatment Response Procedure Tolerated Well [See Physician Procedure note for Specifics] Pain Scale: 0-10 Numeric [Pain] -Is Patient Pain Free? Yes Musculoskeletal: Tenderness - Very minor tenderness with ulcer site manipulation Neurological: Sensory exam intact to light touch and pain - With some altered lower extremity sensation consistent with neuropathy Psych/Mental Status: Normal Affect, Appropriate Debridement Note Post-Debridement Measurements/Treatment WC - Nurse 2 - General Ulcer CM Notes Start: 06/23/19 11:03 Freq: Status: Active Protocol: Activity Type Activity Date Activity User E-Sign Co-Sign Detail Recorded Client Recorded Date Recorded By Document 06/23/19 11:21 AN [id number] 06/23/19 11:27 AN Document 06/30/19 11:05 AN [id number] 06/30/19 11:08 AN 06/23/19 06/30/19 11:21 11:05 Wound Center Nurse 2 #9- L PLANTAR FOOT -Time 11:24 11:06 -Correct Patient Yes Yes -Correct Side, Site, Position Yes Yes -Correct Procedure Yes Yes -Procedure Performed Yes Yes -Type of Procedure Debridement Debridement -Clinical Debridement Subcutaneous Subcutaneous -Post Debridement Size (cm) - Length 0.4 0.3 -Post Debridement Size (cm) - Width 0.9 0.6 -Post Debridement Size (cm) - Depth 0.2 0.2 -Total Square Cm 0.36 0.18 -Wound/Ulcer Outcome Not Healed Not Healed -Ulcer Cleansing Rinsed/ Rinsed/ Irrigated with Irrigated with Saline Saline -Foul Odor after Cleansing No No -Bioengineered Tissue No No -Bleeding Controlled with Pressure Pressure -Offloading No Yes -Type of Offloading Surgical Shoe -Treatment Response Procedure Procedure Tolerated Well Tolerated Well Pain Scale: 0-10 Numeric Is Patient Pain Free? Yes Yes Wound debrided: Left distal plantar forefoot Laterality: Left Type of Debridement: Excisional debridement Depth: in the subcutaneous layer Percentage of wound debrided: 100 Instrument Used: #15 blade Tissue Removed: Devitalized subcutaneous tissue, adherent slough, fibrin, biofilm Severity: Fat Layer Exposed Amount of bleeding with debridement: Mild Bleeding Controlled with: Pressure Patient tolerated procedure well Assessment/Plan Active Problems Non-compliance (Acute) Assessment: Ulcer with fat layer exposed to right distal second toe. Ulcer with fat layer exposed to left distal plantar foot. Neuropathy left leg. Other comorbidities Plan: Patient was carefully examined and evaluated today for ulcer of left plantar distal foot. Patient is also known to be noncompliant with wearing his AFO to the left side as instructed. The ulcer site was carefully debrided in subcutaneous fashion as noted in the clinical panel. Once complete the site was then dressed with Keena to the base followed by dry sterile dressing. The patient was instructed on the importance of keeping the ends of toes as well as the bottom of his left foot offloaded all times with the help of offloading shoes and his left AFO brace with offloading pocket. The importance of keeping pressure off of the ulcer site was stressed in great detail to the patient again today. The importance of proper shoe gear with enough height and width was stressed as well again today. He was instructed to stay away from tight and constricting boots. I stressed the importance of wearing his AFO that he got from [employer], as this has an offloading pocket in the exact area of his previous ulcer. We again discussed the possibility of having alterations made to this brace if needed in the future. Patient was educated on all signs and symptoms of local and systemic infection and he is instructed to go to the emergency room immediately should he notice any of these. All questions were answered to the p satya's satisfaction. Patient will follow-up at the wound healing center in 1 week to check on progress, but was instructed to follow-up sooner if needed before then.
[2019-07-12 15:01] VITALS: BP 152/91; PULSE 84; RESP 18; TEMP 36.8; BMI 40.1
--- NOTE | 2019-07-12 17:54 | PN.PCM_ITS ---
(1) Pressure ulcer of toe, stage 2 Status: Acute Code(s): L89.892 - Pressure ulcer of other site, stage 2 (2) Chronic ulcer of left foot with fat layer exposed Status: Chronic Code(s): L97.522 - Non-pressure chronic ulcer of other part of left foot with fat layer exposed (3) Neuropathy of left lower extremity Status: Chronic Code(s): G57.92 - Unspecified mononeuropathy of left lower limb (4) Other hammer toe(s) (acquired), left foot Status: Chronic Code(s): M20.42 - Other hammer toe(s) (acquired), left foot (5) PVD (peripheral vascular disease) Status: Chronic Code(s): I73.9 - Peripheral vascular disease, unspecified (6) Non-compliance Status: Chronic Code(s): Z91.19 - Patient's noncompliance with other medical treatment and regimen Type of Wound Date of Service: 07/12/19 Chief Complaint: Ulcer to left plantar foot History of Wound: This 64-year-old male presents back to the wound healing center today for re-ulceration to the distal plantar aspect of his left foot. Patient states he noticed the area starting to break back down a couple of weeks ago and is slowly been getting worse. He says he wanted to get in before it got bad. Patient denies any redness to the area or any drainage from the ulcer site. He says he has been keeping it dressed with a gauze dressing. He denies any feelings of nausea, vomiting, fever, chills. He went to [facility] ED last night for redness, swelling and blistering of his left left 4th toe. He states they put him on two antibiotics but he didn't know what they were. Phoned his pharmacy to find out he was placed on augmentin and percocet for pain. Progress of Wound: Patient went to [facility] ED last night due to redness, swelling and blistering of his left foot. He was placed on an antibiotic. He followed up here today for further evaluation. - Physical Exam Vital Signs Temp Pulse Resp BP 98.2 F 84 18 152/91 H 07/12/19 15:01 07/12/19 15:01 07/12/19 15:01 07/12/19 15:01 General: Alert, Oriented x3 HEENT: Atraumatic Lungs: Normal air movement Cardiovascular: Regular rate Extremities: Capillary Refill Less than 3 Seconds, Diminished Peripheral Pulses, Edema Skin: Ulcer/ Wound - left plantar foot ulcer and left 4th toe blistering, redness and swelling Wound Measurements and Assessment WC - Nurse 1 - General Ulcer Measurement Start: 06/23/19 11:03 Freq: Status: Active Protocol: Activity Type Activity Date Activity User E-Sign Co-Sign Detail Recorded Client Recorded Date Recorded By Document 07/12/19 15:01 DL [id number] 07/12/19 15:11 DL 07/12/19 15:01 Wound Center Nurse 1 [Ulcer Assessment] #10 L 5th toe -Current Size (cm) - Length 1.8 -Current Size (cm) - Width 1.5 -Current Size (cm) - Depth 0.1 -Total Square Cm 2.70 -Photo Taken Yes -Classification - Thickness Full Thickness without Exposed Support Structure -Exudate Amt Small -Exudate Type Serosanguineous -Wound Margin Indistinct, Non -Visible -Granulation Amt Medium (34-66%) -Granulation Quality Red -Necrosis Amt Medium (34-66%) -Necrotic Tissue Type Adherent Slough -Structure Exposed N/A -Texture (Talisha-wound Skin Appearance) Localized Edema ,Scarring -Color (Talisha-wound Skin Appearance) Erythema -Temperature (Talisha-wound Skin Hot Appearance) -Tenderness on Palpation (Talisha-wound Yes Skin Appearance) -Ulcer Cleansing Rinsed/ Irrigated with Saline -Foul Odor after Cleansing No -Anesthetic Used 5% Lidocaine Gel #9- L PLANTAR FOOT -Current Size (cm) - Length 0.5 -Current Size (cm) - Width 0.6 -Current Size (cm) - Depth 0.1 -Total Square Cm 0.30 -Photo Taken No -Exudate Amt None Present -Wound Margin Thickened -Necrosis Amt Small (1-33%) -Necrotic Tissue Type Eschar -Structure Exposed N/A -Texture (Talisha-wound Skin Appearance) Callus, Localized Edema -Moisture (Talisha-wound Skin Appearance Dry/Scaly ) -Color (Talisha-wound Skin Appearance) Erythema,Rubor -Temperature (Talisha-wound Skin No Abnormality Appearance) (Pt Warm) -Tenderness on Palpation (Talisha-wound No Skin Appearance) -Ulcer Cleansing Rinsed/ Irrigated with Saline -Foul Odor after Cleansing No -Anesthetic Used 5% Lidocaine Gel WC - Nurse 2 - General Ulcer CM Notes Start: 06/23/19 11:03 Freq: Status: Active Protocol: Activity Type Activity Date Activity User E-Sign Co-Sign Detail Recorded Client Recorded Date Recorded By Document 07/12/19 15:32 JF [id number] 07/12/19 15:47 JF 07/12/19 15:32 Wound Center Nurse 2 [Procedure/Treatment] #10 L 5th toe -Time 15:38 -Correct Patient Yes -Correct Side, Site, Position Yes -Correct Procedure Yes -Procedure Performed Yes -Type of Procedure Debridement -Clinical Debridement Selective -Post Debridement Size (cm) - Length 2.0 -Post Debridement Size (cm) - Width 1.8 -Post Debridement Size (cm) - Depth 0.1 -Total Square Cm 3.60 -Wound/Ulcer Outcome Not Healed -Ulcer Cleansing Rinsed/ Irrigated with Saline -Foul Odor after Cleansing No -Bioengineered Tissue No -Bleeding Controlled with Pressure -Offloading No -Treatment Response Procedure Tolerated Well #9- L PLANTAR FOOT -Time 15:41 -Correct Patient Yes -Correct Side, Site, Position Yes -Correct Procedure Yes -Procedure Performed Yes -Type of Procedure Debridement -Clinical Debridement Subcutaneous -Post Debridement Size (cm) - Length 0.2 -Post Debridement Size (cm) - Width 0.4 -Post Debridement Size (cm) - Depth 0.1 -Total Square Cm 0.08 -Wound/Ulcer Outcome Not Healed -Ulcer Cleansing Rinsed/ Irrigated with Saline -Foul Odor after Cleansing No -Bioengineered Tissue No -Bleeding Controlled with Pressure -Offloading Yes -Type of Offloading Surgical Shoe -Treatment Response Procedure Tolerated Well [See Physician Procedure note for Specifics] Pain Scale: 0-10 Numeric [Pain] -Is Patient Pain Free? Yes Musculoskeletal: Tenderness Neurological: Neuro grossly intact Psych/Mental Status: Normal Affect, Appropriate Debridement Note Post-Debridement Measurements/Treatment WC - Nurse 2 - General Ulcer CM Notes Start: 06/23/19 11:03 Freq: Status: Active Protocol: Activity Type Activity Date Activity User E-Sign Co-Sign Detail Recorded Client Recorded Date Recorded By Document 06/23/19 11:21 AN [id number] 06/23/19 11:27 AN Document 06/30/19 11:05 AN [id number] 06/30/19 11:08 AN Document 07/12/19 15:32 [id number] 07/12/19 15:47 06/23/19 06/30/19 07/12/19 11:21 11:05 15:32 Wound Center Nurse 2 #10 L 5th toe -Time 15:38 -Correct Patient Yes -Correct Side, Site, Position Yes -Correct Procedure Yes -Procedure Performed Yes -Type of Procedure Debridement -Clinical Debridement Selective -Post Debridement Size (cm) - Length 2.0 -Post Debridement Size (cm) - Width 1.8 -Post Debridement Size (cm) - Depth 0.1 -Total Square Cm 3.60 -Wound/Ulcer Outcome Not Healed -Ulcer Cleansing Rinsed/ Irrigated with Saline -Foul Odor after Cleansing No -Bioengineered Tissue No -Bleeding Controlled with Pressure -Offloading No -Treatment Response Procedure Tolerated Well #9- L PLANTAR FOOT -Time 11:24 11:06 15:41 -Correct Patient Yes Yes Yes -Correct Side, Site, Position Yes Yes Yes -Correct Procedure Yes Yes Yes -Procedure Performed Yes Yes Yes -Type of Procedure Debridement Debridement Debridement -Clinical Debridement Subcutaneous Subcutaneous Subcutaneous -Post Debridement Size (cm) - Length 0.4 0.3 0.2 -Post Debridement Size (cm) - Width 0.9 0.6 0.4 -Post Debridement Size (cm) - Depth 0.2 0.2 0.1 -Total Square Cm 0.36 0.18 0.08 -Wound/Ulcer Outcome Not Healed Not Healed Not Healed -Ulcer Cleansing Rinsed/ Rinsed/ Rinsed/ Irrigated with Irrigated with Irrigated with Saline Saline Saline -Foul Odor after Cleansing No No No -Bioengineered Tissue No No No -Bleeding Controlled with Pressure Pressure Pressure -Offloading No Yes Yes -Type of Offloading Surgical Shoe Surgical Shoe -Treatment Response Procedure Procedure Procedure Tolerated Well Tolerated Well Tolerated Well Pain Scale: 0-10 Numeric Is Patient Pain Free? Yes Yes Yes Wound debrided: plantar ulcer Laterality: Left Type of Debridement: Excisional debridement Anesthesia Used: 5% Lidocaine Gel Depth: Down to and including healthy tissue, in the subcutaneous layer Percentage of wound debrided: 100 Instrument Used: 3mm curette Tissue Removed: Subcutaneous tissue and slough Severity: Fat Layer Exposed Amount of bleeding with debridement: Mild Bleeding Controlled with: Pressure Patient tolerated procedure well - Additional Wound Wound debrided: 4th toe blistering Laterality: Left Type of Debridement: Selective debridement Anesthesia Used: 5% Lidocaine Gel Depth: Down to and including healthy tissue, in the subcutaneous layer Percentage of wound debrided: 80 Instrument Used: - - scissors and pick ups Tissue Removed: Slough and hanging blistered skin Severity: Limited To Skin Breakdown Amount of bleeding with debridement: Mild Bleeding Controlled with: Pressure, Compression and gauze Patient tolerated procedure: Patient tolerated procedure well Assessment/Plan Assessment: Ulcer with fat layer exposed to right distal second toe. Ulcer with fat layer exposed to left distal plantar foot. Neuropathy left leg. Other comorbidities Plan: Courtesy visit due to patient going to the [facility] ED last night for pain and swelling of his left toe. His 4th left toe is red, swollen with a ruptured blister that now has hanging skin. Patient is a poor historian and did not know what medication he was placed on. After phoning his pharmacy we discovered that he was placed on Augmentin and percocet for pain. Debrided his left plantar ulcer and selectively debrided the left 4th toe blistered area. He states he obtained the blisters on the left 4th toe from his dressings. Unsure how this was possible. He currently is wearing his AFO on the left foot. Wound care will continue to be Keena to the dorsal ulcer and will place keena on the left 4th toe. He is to continue his Augmentin antibiotics. He is to follow up with Dr. Francisco next week. If he has any further issues he was instructed to come back into the wound care center. Code Visit [id number]- selective debridement of left 4th toe [id number]: [id number] Caterina subq tissue 20 sq cm/<
== END 2019-07-14 23:59 ==
LOC: WC 15:00
PROVIDERS: Visit Provider Podiatrist
DX: I73.9 Peripheral vascular disease, unspecified (principal); L97.512 Non-pressure chronic ulcer of other part of right foot with fat layer exposed; M20.41 Other hammer toe(s) (acquired), right foot; M20.42 Other hammer toe(s) (acquired), left foot; G57.92 Unspecified mononeuropathy of left lower limb; R60.0 Localized edema; Z91.19 Patient's noncompliance with other medical treatment and regimen; L89.892 Pressure ulcer of other site, stage 2
CPT/HCPCS: 11042; 97597; 99212; G0463

== ENCOUNTER 2019-08-10 15:45 | Outpatient (RCR) | payer MEDICARE, SELFPAY ==
[2019-07-15 01:25] VITALS: BP 152/91; PULSE 84; RESP 18; TEMP 36.8
[2019-07-21 11:19] VITALS: RESP 16; TEMP 36.4; BMI 40.1
--- NOTE | 2019-07-21 12:09 | PN.PCM_ITS ---
(1) Chronic ulcer of left foot with fat layer exposed Status: Chronic Current Visit: No Code(s): L97.522 - Non-pressure chronic ulcer of other part of left foot with fat layer exposed (2) Neuropathy of left lower extremity Status: Chronic Current Visit: No Code(s): G57.92 - Unspecified mononeuropathy of left lower limb (3) Other hammer toe(s) (acquired), right foot Status: Acute Current Visit: No Code(s): M20.41 - Other hammer toe(s) (acquired), right foot (4) Other hammer toe(s) (acquired), left foot Status: Chronic Current Visit: No Code(s): M20.42 - Other hammer toe(s) (acquired), left foot (5) PVD (peripheral vascular disease) Status: Chronic Current Visit: No Code(s): I73.9 - Peripheral vascular d isease, unspecified (6) Delayed wound healing Status: Acute Current Visit: No Code(s): T14.8XXD - Other injury of unspecified body region, subsequent encounter (7) Non-compliance Status: Chronic Current Visit: No Code(s): Z91.19 - Patient's noncompliance with other medical treatment and regimen Type of Wound Date of Service: 07/21/19 Chief Complaint: Ulcer to left plantar foot History of Wound: This 64-year-old male presents back to the wound healing center today for re-ulceration to the distal plantar aspect of his left foot. Patient states he noticed the area starting to break back down a couple of weeks ago and is slowly been getting worse. He says he wanted to get in before it got bad. Patient denies any redness to the area or any drainage from the ulcer site. He says he has been keeping it dressed with a gauze dressing. He denies any feelings of nausea, vomiting, fever, chills. He went to [facility] ED last night for redness, swelling and blistering of his left left 4th toe. He states they put him on two antibiotics but he didn't know what they were. Phoned his pharmacy to find out he was placed on augmentin and percocet for pain. Progress of Wound: Ulcer site to distal left plantar foot continues to show improvement. Slight ulcer to dorsal aspect of left 4th toe. Patient denies any feelings of nausea, vomiting, fever, chills. - Physical Exam Vital Signs Temp Pulse Resp BP 97.5 F L 84 16 152/91 H 07/21/19 11:19 07/15/19 01:25 07/21/19 11:07/15/19 01:25 General: Alert, Oriented x3, Cooperative, No apparent distress Extremities: No cyanosis, Capillary Refill Less than 3 Seconds, No Calf Tenderness, Diminished Peripheral Pulses - DP and PT pulses faintly palpable bilateral, Edema - Slight lower extremity edema Skin: Ulcer/ Wound - Ulcer to the left distal plantar forefoot and left dorsal fourth toe with fat layer exposed. The base is a mixture of devitalized subcutaneous tissue, adherent slough, fibrin, biofilm, granular tissue as well as surrounding hyperkeratotic tissue. There is no probing to bone, no tracking, no undermining, no purulence, no extending or surrounding cellulitis, and no increase in warmth to the area at this time Wound Measurements and Assessment WC - Nurse 1 - General Ulcer Measurement Start: 07/21/19 11:17 Freq: Status: Active Protocol: Activity Type Activity Date Activity User E-Sign Co-Sign Detail Recorded Client Recorded Date Recorded By Document 07/21/19 11: [facility] [id number] 07/21/19 11:25 [facility] 07/21/19 11:19 Wound Center Nurse 1 [Ulcer Assessment] #10 L 5th toe -Combined with other wound No -Current Size (cm) - Length 0.1 -Current Size (cm) - Width 0.1 -Current Size (cm) - Depth 0.1 -Total Square Cm 0.01 -Photo Taken No -Epithelialization Large 67-100% -Tunneling No -Undermining/Tunneling No -Circular Undermining No -Texture (Talisha-wound Skin Appearance) Assessed,Callus -Moisture (Talisha-wound Skin Appearance Assessed,Dry/ ) Scaly -Color (Talisha-wound Skin Appearance) Assessed -Temperature (Talisha-wound Skin No Abnormality Appearance) (Pt Warm) -Tenderness on Palpation (Talisha-wound No Skin Appearance) -Ulcer Cleansing Rinsed/ Irrigated with Saline -Foul Odor after Cleansing No -Anesthetic Used 5% Lidocaine Gel #9- L PLANTAR FOOT -Combined with other wound No -Current Size (cm) - Length 0.1 -Current Size (cm) - Width 0.1 -Current Size (cm) - Depth 0.1 -Total Square Cm 0.01 -Photo Taken No -Epithelialization Large 67-100% -Tunneling No -Undermining/Tunneling No -Circular Undermining No -Exudate Amt None Present -Texture (Talisha-wound Skin Appearance) Assessed,Callus -Moisture (Talisha-wound Skin Appearance Assessed,Dry/ ) Scaly -Color (Talisha-wound Skin Appearance) Assessed -Temperature (Talisha-wound Skin No Abnormality Appearance) (Pt Warm) -Tenderness on Palpation (Talisha-wound No Skin Appearance) -Ulcer Cleansing Rinsed/ Irrigated with Saline -Foul Odor after Cleansing No -Anesthetic Used 5% Lidocaine Gel Musculoskeletal: Tenderness - Very minor tenderness with ulcer site manipulation, - - Hammertoe deformities of digits 2?5 of the right and left foot. Bilateral hallux malleus deformities Neurological: - - Patient does have altered lower extremity sensation consistent with neuropathy status Psych/Mental Status: Normal Affect, Appropriate Debridement Note Wound debrided: Left distal plantar forefoot Laterality: Left Type of Debridement: Excisional debridement Anesthesia Used: 5% Lidocaine Gel Depth: in the subcutaneous layer Percentage of wound debrided: 100 Instrument Used: #15 blade Tissue Removed: Devitalized cutaneous tissue, adherent slough, fibrin, biofilm Severity: Fat Layer Exposed Amount of bleeding with debridement: Mild Bleeding Controlled with: Pressure Patient tolerated procedure well - Additional Wound Wound debrided: Left dorsal fourth toe Laterality: Left Type of Debridement: Excisional debridement Anesthesia Used: 5% Lidocaine Gel Depth: in the subcutaneous layer Percentage of wound debrided: 100 Instrument Used: #15 blade Tissue Removed: Devitalized subcutaneous tissue, adherent slough, fibrin, biofilm Severity: Fat Layer Exposed Amount of bleeding with debridement: Mild Bleeding Controlled with: Pressure Patient tolerated procedure: Patient tolerated procedure well Assessment/Plan Assessment: Ulcer dorsal left fourth toe. Ulcer with fat layer exposed to left distal plantar foot. Neuropathy left leg. Other comorbidities Plan: Patient was carefully examined and evaluated today for ulcer of left plantar distal foot and left dorsal fourth toe. Patient is also known to be noncompliant with wearing his AFO to the left side as instructed. The ulcer sites were carefully debrided in subcutaneous fashion as noted in the clinical panel. Once complete the sites were then dressed with Keena to the base followed by dry sterile dressing. The patient was instructed on the importance of keeping the ends of toes as well as the bottom of his left foot offloaded all times with the help of offloading shoes and his left AFO brace with offloading pocket. The importance of keeping pressure off of the ulcer site was stressed in great detail to the patient again today. The importance of proper shoe gear with enough height and width was stressed as well again today. He was instructed to stay away from tight and constricting boots. I stressed the importance of wearing his AFO that he got from [employer], as this has an offloading pocket in the exact area of his previous ulcer. We again discussed the possibility of having alterations made to this brace if needed in the future. Patient was educated on all signs and symptoms of local and systemic infection and he is instructed to go to the emergency room immediately should he notice any of these. All questions were answered to the patient's satisfaction. Patient will follow-up at the wound healing center in 1 week to check on progress, but was instructed to follow-up sooner if needed before then.
[2019-07-28 11:33] VITALS: BP 133/75; PULSE 76; RESP 18; TEMP 36.6; BMI 40.1
--- NOTE | 2019-07-28 12:38 | PN.PCM_ITS ---
(1) Chronic ulcer of left foot with fat layer exposed Status: Chronic Current Visit: No Code(s): L97.522 - Non-pressure chronic ulcer of other part of left foot with fat layer exposed (2) Neuropathy of left lower extremity Status: Chronic Current Visit: No Code(s): G57.92 - Unspecified mononeuropathy of left lower limb (3) Other hammer toe(s) (acquired), right foot Status: Acute Current Visit: No Code(s): M20.41 - Other hammer toe(s) (acquired), right foot (4) Other hammer toe(s) (acquired), left foot Status: Chronic Current Visit: No Code(s): M20.42 - Other hammer toe(s) (acquired), left foot (5) PVD (peripheral vascular disease) Status: Chronic Current Visit: No Code(s): I73.9 - Peripheral vascular d isease, unspecified (6) Delayed wound healing Status: Acute Current Visit: No Code(s): T14.8XXD - Other injury of unspecified body region, subsequent encounter (7) Non-compliance Status: Chronic Current Visit: No Code(s): Z91.19 - Patient's noncompliance with other medical treatment and regimen Type of Wound Date of Service: 07/28/19 Chief Complaint: Ulcer to left plantar foot History of Wound: This 64-year-old male presents back to the wound healing center today for re-ulceration to the distal plantar aspect of his left foot. Patient states he noticed the area starting to break back down a couple of weeks ago and is slowly been getting worse. He says he wanted to get in before it got bad. Patient denies any redness to the area or any drainage from the ulcer site. He says he has been keeping it dressed with a gauze dressing. He denies any feelings of nausea, vomiting, fever, chills. He went to [facility] ED last night for redness, swelling and blistering of his left left 4th toe. He states they put him on two antibiotics but he didn't know what they were. Phoned his pharmacy to find out he was placed on augmentin and percocet for pain. Progress of Wound: Ulcer site to distal left plantar foot and left dorsal 4th toe continues to show improvement. Patient denies any feelings of nausea, vomiting, fever, chills. - Physical Exam Vital Signs Temp Pulse Resp BP 98 F 76 18 133/75 H 07/28/19 11:33 07/28/19 11:33 07/28/19 11:33 07/28/19 11:33 General: Alert, Oriented x3, Cooperative, No apparent distress Extremities: No cyanosis, Capillary Refill Less than 3 Seconds, No Calf Tenderness, Diminished Peripheral Pulses - DP and PT pulses faintly palpable bilateral, Edema - Slight lower extremity edema Skin: Ulcer/ Wound - Ulcer to the left distal plantar forefoot and left dorsal fourth toe with fat layer exposed. The base is a mixture of adherent slough, fibrin, and majority of granular tissue as well as surrounding hyperkeratotic tissue. There is no probing to bone, no tracking, no undermining, no purulence, no extending or surrounding cellulitis, and no increase in warmth to the area at this time. Sites almost healed today. Wound Measurements and Assessment WC - Nurse 1 - General Ulcer Measurement Start: 07/21/19 11:17 Freq: Status: Active Protocol: Activity Type Activity Date Activity User E-Sign Co-Sign Detail Recorded Client Recorded Date Recorded By Document 07/28/19 11:33 [id number] 07/28/19 11:35 RB 07/28/19 11:33 Wound Center Nurse 1 [Ulcer Assessment] #10 L 5th toe -Combined with other wound No -Current Size (cm) - Length 0.1 -Current Size (cm) - Width 0.1 -Current Size (cm) - Depth 0.1 -Total Square Cm 0.01 -Tunneling No -Undermining/Tunneling No -Circular Undermining No -Exudate Amt Small -Exudate Type Serosanguineous -Wound Margin Flat & Intact -Granulation Amt Large (67-100%) -Granulation Quality [place] -Slough/Fibrin Yes -Necrosis Amt Small (1-33%) -Necrotic Tissue Type Adherent Slough -Structure Exposed N/A -Texture (Talisha-wound Skin Appearance) Assessed -Moisture (Talisha-wound Skin Appearance Assessed ) -Color (Talisha-wound Skin Appearance) Assessed -Temperature (Talisha-wound Skin No Abnormality Appearance) (Pt Warm) -Tenderness on Palpation (Talisha-wound No Skin Appearance) -Ulcer Cleansing Wound Cleanser -Foul Odor after Cleansing No -Anesthetic Used 4% Lidocaine Solution #9- L PLANTAR FOOT -Current Size (cm) - Length 0.1 -Current Size (cm) - Width 0.1 -Current Size (cm) - Depth 0.1 -Total Square Cm 0.01 -Tunneling No -Undermining/Tunneling No -Circular Undermining No -Exudate Amt Small -Exudate Type Serosanguineous -Wound Margin Thickened -Granulation Amt Large (67-100%) -Granulation Quality [place] -Slough/Fibrin Yes -Necrosis Amt Small (1-33%) -Necrotic Tissue Type Adherent Slough -Structure Exposed N/A -Texture (Talisha-wound Skin Appearance) Callus -Moisture (Talisha-wound Skin Appearance Assessed ) -Color (Talisha-wound Skin Appearance) Assessed -Temperature (Talisha-wound Skin No Abnormality Appearance) (Pt Warm) -Tenderness on Palpation (Talisha-wound No Skin Appearance) -Ulcer Cleansing Wound Cleanser -Foul Odor after Cleansing No -Anesthetic Used 4% Lidocaine Solution Musculoskeletal: Tenderness - Very minor tenderness with ulcer site manipulation, - - Hammertoe deformities of digits 2?5 of the right and left foot. Bilateral hallux malleus deformities Neurological: - - Altered lower extremity sensation consistent with patient's neuropathy status Psych/Mental Status: Normal Affect, Appropriate Debridement Note Wound debrided: Left distal plantar forefoot Laterality: Left Type of Debridement: Selective debridement Anesthesia Used: 5% Lidocaine Gel Depth: in the subcutaneous layer Percentage of wound debrided: 100 Instrument Used: #15 blade Tissue Removed: Adherent slough, fibrin, hyperkeratotic skin Severity: Fat Layer Exposed Amount of bleeding with debridement: Mild Bleeding Controlled with: Pressure Patient tolerated procedure well - Additional Wound Wound debrided: Left dorsal fourth toe Laterality: Left Type of Debridement: Selective debridement Anesthesia Used: 5% Lidocaine Gel Depth: in the subcutaneous layer Percentage of wound debrided: 100 Instrument Used: #15 blade Tissue Removed: Adherent slough, fibrin, hyperkeratotic skin Severity: Fat Layer Exposed Amount of bleeding with debridement: Mild Bleeding Controlled with: Pressure Patient tolerated procedure: Patient tolerated procedure well Assessment/Plan Assessment: Ulcer dorsal left fourth toe. Ulcer with fat layer exposed to left distal plantar foot. Neuropathy left leg. Other comorbidities Plan: Patient was carefully examined and evaluated today for ulcer of left plantar distal foot and left dorsal fourth toe. The ulcer sites were carefully debrided as noted in the clinical panel. Once complete the sites were then d ressed with Keena to the base followed by dry sterile dressing. The patient was instructed on the importance of keeping the ends of toes as well as the bottom of his left foot offloaded all times with the help of offloading shoes and his left AFO brace with offloading pocket. The importance of keeping pressure off of the ulcer site was stressed in great detail to the patient again today. The importance of proper shoe gear with enough height and width was stressed as well again today. He was instructed to stay away from tight and constricting boots. I stressed the importance of wearing his AFO that he got from [employer], as this has an offloading pocket in the exact area of his previous ulcer. We again discussed the possibility of having alterations made to this brace if needed in the future. Patient was educated on all signs and symptoms of local and systemic infection and he is instructed to go to the emergency room immediately should he notice any of these. All questions were answered to the patient's satisfaction. Patient will follow-up at the wound healing center in 1 week to check on progress, but was instructed to follow-up sooner if needed before then.
[2019-08-10 15:27] VITALS: BP 130/80; PULSE 77; RESP 16; TEMP 36.4; BMI 40.1
--- NOTE | 2019-08-15 13:43 | PN.PCM_ITS ---
(1) Delayed wound healing Status: Acute Code(s): T14.8XXD - Other injury of unspecified body region, subsequent encounter (2) Lower extremity neuropathy Status: Acute Code(s): G57.90 - Unspecified mononeuropathy of unspecified lower limb (3) Pressure ulcer of toe, stage 2 Status: Acute Code(s): L89.892 - Pressure ulcer of other site, stage 2 (4) PVD (peripheral vascular disease) Status: Chronic Code(s): I73.9 - Peripheral vascular disease, unspecified (5) Chronic ulcer of left foot with fat layer exposed Status: Chronic Code(s): L97.522 - Non-pressure chronic ulcer of other part of left foot with fat layer exposed Type of Wound Date of Service: 08/10/19 Chief Complaint: Ulcer to left plantar foot History of Wound: This 64-year-old male presents back to the wound healing center today for re-ulceration to the distal plantar aspect of his left foot. Patient states she noticed the area starting to break back down a couple of weeks ago and is slowly been getting worse. He says he wanted to get in before it got bad. Patient denies any redness to the area or any drainage from the ulcer site. He says he has been keeping it dressed with a gauze dressing. He denies any feelings of nausea, vomiting, fever, chills. Progress of Wound: Courtesy visit for Dr. Francisco-Ulcer site to distal left plantar foot and left dorsal 4th toe are healed. Patient denies any feelings of nausea, vomiting, fever, chills. - Physical Exam Vital Signs Temp Pulse Resp BP 97.5 F L 77 16 130/80 H 08/10/19 15:27 08/10/19 15:27 08/10/19 15:27 08/10/19 15:27 General: Alert, Oriented x3, Cooperative, No apparent distress HEENT: Atraumatic, PERRLA Lungs: Clear to auscultation, Normal air movement Cardiovascular: Regular rate, Regular Rhythm Abdomen: Soft, Non Tender Extremities: No clubbing, No cyanosis, No edema Skin: Ulcer/ Wound - healed, no signs of infection at this time Musculoskeletal: No Muscle Wasting Psych/Mental Status: Normal Affect, Appropriate, Alert and oriented to time, place, person, mood and affect Debridement Note Post-Debridement Measurements/Treatment WC - Nurse 2 - General Ulcer CM Notes Start: 07/21/19 11:17 Freq: Status: Active Protocol: Activity Type Activity Date Activity User E-Sign Co-Sign Detail Recorded Client Recorded Date Recorded By Document 08/03/19 13:54 [id number] 08/03/19 13:58 Document 08/10/19 15:41 [id number] 08/10/19 15:43 ORESTES 08/03/19 08/10/19 13:54 15:41 Wound Center Nurse 2 #10 L 5th toe -Time 11:45 -Correct Patient Yes No -Correct Side, Site, Position Yes No -Correct Procedure Yes No -Procedure Performed Yes No -Type of Procedure Debridement -Clinical Debridement Subcutaneous -Post Debridement Size (cm) - Length 0.1 0 -Post Debridement Size (cm) - Width 0.1 0 -Post Debridement Size (cm) - Depth 0.1 0 -Total Square Cm 0.01 0 -Wound/Ulcer Outcome Not Healed Healed- Epithelialized -Ulcer Cleansing Not Cleansed -Foul Odor after Cleansing No -Bioengineered Tissue No -Bleeding Controlled with Pressure -Offloading Yes -Treatment Response Procedure Tolerated Well #9- L PLANTAR FOOT -Time 11:45 -Correct Patient Yes No -Correct Side, Site, Position Yes No -Correct Procedure Yes No -Procedure Performed Yes No -Type of Procedure Debridement -Clinical Debridement Subcutaneous -Post Debridement Size (cm) - Length 0.1 0 -Post Debridement Size (cm) - Width 0.3 0 -Post Debridement Size (cm) - Depth 0.1 0 -Total Square Cm 0.03 0 -Wound/Ulcer Outcome Not Healed Healed- Epithelialized -Ulcer Cleansing Not Cleansed -Foul Odor after Cleansing No -Bioengineered Tissue No -Bleeding Controlled with Pressure -Offloading Yes -Treatment Response Procedure Tolerated Well Pain Scale: 0-10 Numeric Is Patient Pain Free? Yes Yes Assessment/Plan Assessment: Ulcer dorsal left fourth toe. Ulcer with fat layer exposed to left distal plantar foot. Neuropathy left leg. Other comorbidities Plan: Patient was carefully examined and evaluated today for ulcer of left plantar distal foot and left dorsal fourth toe. The ulcer sites are healed without any signs of infection at this time. May cover sites with gauze for protection. The patient was instructed on the importance of keeping the ends of toes as well as the bottom of his left foot offloaded all times with the help of offloading shoes and his left AFO brace with offloading pocket. The importance of keeping pressure off of the ulcer site was stressed in great detail to the patient again today. The importance of proper shoe gear with enough height and width was stressed as well again today. He was instructed to stay away from tight and constricting boots. I stressed the importance of wearing his AFO that he got from [email or web address], as this has an offloading pocket in the exact area of his previous ulcer. We again discussed the possibility of having alterations made to this brace if needed in the future. Patient was educated on all signs and symptoms of local and systemic infection and he is instructed to go to the emergency room immediately should he notice any of these. All questions were answered to the patient's satisfaction. Patient will follow-up at the wound healing center in 2 weeks and if still healed will discharge. Code Visit Office Visits / Consults: [id number] OV L3 Est
== END 2019-08-13 23:59 ==
LOC: WC 15:45
PROVIDERS: Visit Provider Podiatrist
DX: I73.9 Peripheral vascular disease, unspecified (principal); M20.41 Other hammer toe(s) (acquired), right foot; M20.42 Other hammer toe(s) (acquired), left foot; G57.92 Unspecified mononeuropathy of left lower limb; L97.522 Non-pressure chronic ulcer of other part of left foot with fat layer exposed; Z91.19 Patient's noncompliance with other medical treatment and regimen
CPT/HCPCS: 11042; 97597; 99212; G0463

== ENCOUNTER 2019-09-01 10:11 | Outpatient (RCR) | payer MEDICARE, SELFPAY ==
[2019-08-14 01:02] VITALS: BP 130/80; PULSE 77; RESP 16; TEMP 36.4
[2019-09-01 11:33] VITALS: BP 144/93; PULSE 72; RESP 18; TEMP 36.6; BMI 40.1
--- NOTE | 2019-09-01 11:45 | PN.PCM_ITS ---
(1) Chronic ulcer of left foot with fat layer exposed Status: Chronic Current Visit: No Code(s): L97.522 - Non-pressure chronic ulcer of other part of left foot with fat layer exposed (2) Neuropathy of left lower extremity Status: Chronic Current Visit: No Code(s): G57.92 - Unspecified mononeuropathy of left lower limb (3) Other hammer toe(s) (acquired), right foot Status: Acute Current Visit: No Code(s): M20.41 - Other hammer toe(s) (acquired), right foot (4) Other hammer toe(s) (acquired), left foot Status: Chronic Current Visit: No Code(s): M20.42 - Other hammer toe(s) (acquired), left foot (5) PVD (peripheral vascular disease) Status: Chronic Current Visit: No Code(s): I73.9 - Peripheral vascular d isease, unspecified (6) Delayed wound healing Status: Acute Current Visit: No Code(s): T14.8XXD - Other injury of unspecified body region, subsequent encounter (7) Non-compliance Status: Chronic Current Visit: No Code(s): Z91.19 - Patient's noncompliance with other medical treatment and regimen Type of Wound Date of Service: 09/01/19 Chief Complaint: Ulcer to left plantar foot History of Wound: This 64-year-old male presents back to the wound healing center today for re-ulceration to the distal plantar aspect of his left foot. Patient states she noticed the area starting to break back down a couple of weeks ago and is slowly been getting worse. He says he wanted to get in before it got bad. Patient denies any redness to the area or any drainage from the ulcer site. He says he has been keeping it dressed with a gauze dressing. He denies any feelings of nausea, vomiting, fever, chills. Progress of Wound: Ulcer site to distal left plantar foot has reopened slightly. Patient denies any feelings of nausea, vomiting, fever, chills. - Physical Exam Vital Signs Temp Pulse Resp BP 97.9 F 72 18 144/93 H 09/01/19 11:33 09/01/19 11:33 09/01/19 11:33 09/01/19 11:33 General: Alert, Oriented x3, Cooperative, No apparent distress Extremities: No cyanosis, Capillary Refill Less than 3 Seconds, No Calf Tenderness, Diminished Peripheral Pulses - DP and PT pulses faintly palpable bilateral, Edema - Slight lower extremity edema Skin: Ulcer/ Wound - Ulcer to the left distal plantar forefoot with fat layer exposed. The base is a mixture of adherent slough, fibrin, and majority of granular tissue as well as surrounding hyperkeratotic tissue. There is no probing to bone, no tracking, no undermining, no purulence, no extending or surrounding cellulitis, and no increase in warmth to the area at this time. Wound Measurements and Assessment WC - Nurse 2 - General Ulcer CM Notes Start: 09/01/19 11:33 Freq: Status: Active Protocol: Activity Type Activity Date Activity User E-Sign Co-Sign Detail Recorded Client Recorded Date Recorded By Document 09/01/19 11:42 DV [id number] 09/01/19 11:44 DV 09/01/19 11:42 Wound Center Nurse 2 [Procedure/Treatment] #9- L PLANTAR FOOT -Time 11:43 -Correct Patient Yes -Correct Side, Site, Position Yes -Correct Procedure Yes -Procedure Performed Yes -Type of Procedure Debridement -Clinical Debridement Subcutaneous -Post Debridement Size (cm) - Length 0.2 -Post Debridement Size (cm) - Width 0.5 -Post Debridement Size (cm) - Depth 0.2 -Total Square Cm 0.10 -Wound/Ulcer Outcome Not Healed -Ulcer Cleansing Rinsed/ Irrigated with Saline -Foul Odor after Cleansing No -Bioengineered Tissue No -Bleeding Controlled with Pressure -Offloading Yes -Treatment Response Procedure Tolerated Well [See Physician Procedure note for Specifics] Pain Scale: 0-10 Numeric [Pain] -Is Patient Pain Free? Yes Musculoskeletal: Tenderness - Very minor tenderness with ulcer site manipulation, - - Hammertoe deformities of digits 2?5 of the right and left foot. Bilateral hallux malleus deformities Neurological: - - Altered lower extremity sensation consistent with patient's diabetic neuropathy status Psych/Mental Status: Normal Affect, Appropriate Debridement Note Post-Debridement Measurements/Treatment WC - Nurse 2 - General Ulcer CM Notes Start: 09/01/19 11:33 Freq: Status: Active Protocol: Activity Type Activity Date Activity User E-Sign Co-Sign Detail Recorded Client Recorded Date Recorded By Document 09/01/19 11:42 DV [id number] 09/01/19 11:44 DV 09/01/19 11:42 Wound Center Nurse 2 #9- L PLANTAR FOOT -Time 11:43 -Correct Patient Yes -Correct Side, Site, Position Yes -Correct Procedure Yes -Procedure Performed Yes -Type of Procedure Debridement -Clinical Debridement Subcutaneous -Post Debridement Size (cm) - Length 0.2 -Post Debridement Size (cm) - Width 0.5 -Post Debridement Size (cm) - Depth 0.2 -Total Square Cm 0.10 -Wound/Ulcer Outcome Not Healed -Ulcer Cleansing Rinsed/ Irrigated with Saline -Foul Odor after Cleansing No -Bioengineered Tissue No -Bleeding Controlled with Pressure -Offloading Yes -Treatment Response Procedure Tolerated Well Pain Scale: 0-10 Numeric Is Patient Pain Free? Yes Wound debrided: Left distal plantar forefoot Laterality: Left Type of Debridement: Excisional debridement Anesthesia Used: 4% Lidocaine Solution Depth: in the subcutaneous layer Percentage of wound debrided: 100 Instrument Used: #15 blade Tissue Removed: Adherent slough, fibrin, hyperkeratotic tissue Severity: Fat Layer Exposed Amount of bleeding with debridement: Mild Bleeding Controlled with: Pressure Patient tolerated procedure well Assessment/Plan Assessment: Ulcer dorsal left fourth toe. Ulcer with fat layer exposed to left distal plantar foot. Neuropathy left leg. Other comorbidities Plan: Patient was carefully examined and evaluated today for ulcer of left plantar distal foot that opened back up since his last visit. The ulcer site was carefully debrided as noted in the clinical panel. Once complete the site was then dressed with Keena to the base followed by dry sterile dressing. The patient was instructed on the importance of keeping the ends of toes as well as the bottom of his left foot offloaded all times with the help of offloading shoes and his left AFO brace with offloading pocket. Patient states he recently got new boots. He was instructed to break these in slowly and to monitor very closely for any areas of pressure to his toes or feet. He does relate that he has been noncompliant with wearing his AFO since he got his new boots. He was instructed to get back into his AFO and to make sure that there is ample room for his feet in his boots with his AFO. The importance of keeping pressure off of the ulcer site was stressed in great detail to the patient again today. The importance of proper shoe gear with enough height and width was stressed as well again today. He was instructed to stay away from tight and constricting boots. I stressed the importance of wearing his AFO that he got from [employer], as this has an offloading pocket in the exact area of his previous ulcer. We again discussed the possibility of having alterations made to this brace if needed in the future. Patient was educated on all signs and symptoms of local and systemic infection and he is instructed to go to the emergency room immediately should he notice any of these. All questions were answered to the patient's satisfaction. Patient will follow-up at the wound healing center in 2 weeks to check on progress, but was instructed to follow-up sooner if needed before then.
== END 2019-09-13 23:59 ==
LOC: WC 10:11
PROVIDERS: Visit Provider Podiatrist
DX: I73.9 Peripheral vascular disease, unspecified (principal); L97.522 Non-pressure chronic ulcer of other part of left foot with fat layer exposed; G57.92 Unspecified mononeuropathy of left lower limb; M20.41 Other hammer toe(s) (acquired), right foot; M20.42 Other hammer toe(s) (acquired), left foot; Z91.19 Patient's noncompliance with other medical treatment and regimen
CPT/HCPCS: 11042

== ENCOUNTER 2019-09-29 00:44 | Outpatient (RCR) | payer MEDICARE, SELFPAY ==
[2019-09-14 00:44] VITALS: BP 144/93; PULSE 72; RESP 18; TEMP 36.6
[2019-09-22 10:47] VITALS: BP 131/82; PULSE 75; RESP 16; TEMP 36.2; BMI 40.1
--- NOTE | 2019-09-22 12:10 | PN.PCM_ITS ---
(1) Chronic ulcer of left foot with fat layer exposed Status: Chronic Code(s): L97.522 - Non-pressure chronic ulcer of other part of left foot with fat layer exposed (2) Neuropathy of left lower extremity Status: Chronic Code(s): G57.92 - Unspecified mononeuropathy of left lower limb (3) Other hammer toe(s) (acquired), right foot Status: Acute Code(s): M20.41 - Other hammer toe(s) (acquired), right foot (4) Other hammer toe(s) (acquired), left foot Status: Chronic Code(s): M20.42 - Other hammer toe(s) (acquired), left foot (5) PVD (peripheral vascular disease) Status: Chronic Code(s): I73.9 - Peripheral vascular disease, unspecified (6) Delayed wound healing Status: Acute Code(s): T14.8XXD - Other injury of unspecified body region, subsequent encounter (7) Non-compliance Status: Chronic Code(s): Z91.19 - Patient's noncompliance with other medical treatment and regimen Type of Wound Date of Service: 09/22/19 Chief Complaint: Ulcer to left plantar foot History of Wound: This 64-year-old male presents back to the wound healing center today for re-ulceration to the distal plantar aspect of his left foot. Patient states she noticed the area starting to break back down a couple of weeks ago and is slowly been getting worse. He says he wanted to get in before it got bad. Patient denies any redness to the area or any drainage from the ulcer site. He says he has been keeping it dressed with a gauze dressing. He denies any feelings of nausea, vomiting, fever, chills. Progress of Wound: Ulcer fairly stable since last visit. Patient denies any feelings of nausea, vomiting, fever, chills. - Physical Exam Vital Signs Temp Pulse Resp BP 97.2 F L 75 16 131/82 H 09/22/19 10:47 09/22/19 10:47 09/22/19 10:47 09/22/19 10:47 General: Alert, Oriented x3, Cooperative, No apparent distress Extremities: No cyanosis, Capillary Refill Less than 3 Seconds, No Calf Tende rness, Diminished Peripheral Pulses - DP and PT pulses faintly palpable bilateral, Edema - Slight lower extremity edema Skin: Ulcer/ Wound - Ulcer to the left distal plantar forefoot with fat layer exposed. The base is a mixture of adherent slough, fibrin, and majority of granular tissue as well as surrounding hyperkeratotic tissue. There is no probing to bone, no tracking, no undermining, no purulence, no extending or surrounding cellulitis, and no increase in warmth to the area at this time. Wound Measurements and Assessment WC - Nurse 1 - General Ulcer Measurement Start: 09/22/19 10:47 Freq: Status: Active Protocol: Activity Type Activity Date Activity User E-Sign Co-Sign Detail Recorded Client Recorded Date Recorded By Document 09/22/19 10:47 [facility] [id number] 09/22/19 10:51 [facility] 09/22/19 10:47 Wound Center Nurse 1 [Ulcer Assessment] #9- L PLANTAR FOOT -Combined with other wound No -Current Size (cm) - Length 0.1 -Current Size (cm) - Width 0.1 -Current Size (cm) - Depth 0.1 -Total Square Cm 0.01 -Photo Taken No -Epithelialization Large 67-100% -Tunneling No -Undermining/Tunneling No -Circular Undermining No -Granulation Amt None Present (0 %) -Slough/Fibrin Yes -Necrosis Amt Small (1-33%) -Necrotic Tissue Type Adherent Slough -Texture (Talisha-wound Skin Appearance) Assessed,Callus ,Scarring -Moisture (Talisha-wound Skin Appearance Assessed,Dry/ ) Scaly -Color (Talisha-wound Skin Appearance) Assessed -Temperature (Talisha-wound Skin No Abnormality Appearance) (Pt Warm) -Tenderness on Palpation (Talisha-wound No Skin Appearance) -Ulcer Cleansing Rinsed/ Irrigated with Saline -Foul Odor after Cleansing No -Anesthetic Used 5% Lidocaine Gel WC - Nurse 2 - General Ulcer CM Notes Start: 09/22/19 10:47 Freq: Status: Active Protocol: Activity Type Activity Date Activity User E-Sign Co-Sign Detail Recorded Client Recorded Date Recorded By Document 09/22/19 11:12 DV [id number] 09/22/19 11:14 DV 09/22/19 11:12 Wound Center Nurse 2 [Procedure/Treatment] -Time 11:13 -Correct Patient Yes -Correct Side, Site, Position Yes -Correct Procedure Yes -Procedure Performed Yes -Type of Procedure Debridement -Clinical Debridement Subcutaneous -Post Debridement Size (cm) - Length 0.3 -Post Debridement Size (cm) - Width 0.4 -Post Debridement Size (cm) - Depth 0.2 -Total Square Cm 0.12 -Wound/Ulcer Outcome Not Healed -Ulcer Cleansing Rinsed/ Irrigated with Saline -Foul Odor after Cleansing No -Bioengineered Tissue No -Bleeding Controlled with Pressure -Offloading No -Type of Offloading Surgical Shoe -Treatment Response Procedure Tolerated Well [See Physician Procedure note for Specifics] Pain Scale: 0-10 Numeric [Pain] -Is Patient Pain Free? Yes Musculoskeletal: Tenderness - Very minor tenderness with ulcer site manipulation, - - Hammertoe deformities of digits 2?5 of the right and left foot. Bilateral hallux malleus deformities Neurological: - - Altered lower extremity sensation consistent with patient's diabetic neuropathy status Psych/Mental Status: Normal Affect, Appropriate Debridement Note Post-Debridement Measurements/Treatment WC - Nurse 2 - General Ulcer CM Notes Start: 09/22/19 10:47 Freq: Status: Active Protocol: Activity Type Activity Date Activity User E-Sign Co-Sign Detail Recorded Client Recorded Date Recorded By Document 09/22/19 11:12 DV [id number] 09/22/19 11:14 DV 09/22/19 11:12 Wound Center Nurse 2 #9- L PLANTAR FOOT -Time 11:13 -Correct Patient Yes -Correct Side, Site, Position Yes -Correct Procedure Yes -Procedure Performed Yes -Type of Procedure Debridement -Clinical Debridement Subcutaneous -Post Debridement Size (cm) - Length 0.3 -Post Debridement Size (cm) - Width 0.4 -Post Debridement Size (cm) - Depth 0.2 -Total Square Cm 0.12 -Wound/Ulcer Outcome Not Healed -Ulcer Cleansing Rinsed/ Irrigated with Saline -Foul Odor after Cleansing No -Bioengineered Tissue No -Bleeding Controlled with Pressure -Offloading No -Type of Offloading Surgical Shoe -Treatment Response Procedure Tolerated Well Pain Scale: 0-10 Numeric Is Patient Pain Free? Yes Wound debrided: Left distal plantar forefoot Laterality: Left Type of Debridement: Excisional debridement Anesthesia Used: 4% Lidocaine Solution Depth: in the subcutaneous layer Percentage of wound debrided: 100 Instrument Used: #15 blade Tissue Removed: Adherent slough, fibrin, hyperkeratotic tissue Severity: Fat Layer Exposed Amount of bleeding with debridement: Mild Bleeding Controlled with: Pressure Patient tolerated procedure well Assessment/Plan Assessment: Ulcer dorsal left fourth toe. Ulcer with fat layer exposed to left distal plantar foot. Neuropathy left leg. Other comorbidities Plan: Patient was carefully examined and evaluated today for ulcer of left plantar distal foot. The ulcer site was carefully debrided as noted in the clinical panel. Once complete the site was then dressed with Keena to the base followed by dry sterile dressing. The patient was instructed on the importance of keeping the ends of toes as well as the bottom of his left foot offloaded all times with the help of offloading shoes and his left AFO brace with offloading pocket. Patient states he recently got new boots. He was instructed to break these in slowly and to monitor very closely for any areas of pressure to his toes or feet. He does relate that he has been noncompliant with wearing his AFO since he got his new boots. He was instructed to get back into his AFO and to make sure that there is ample room for his feet in his boots with his AFO. The importance of keeping pressure off of the ulcer site was stressed in great detail to the patient again today. The importance of proper shoe gear with enough height and width was stressed as well again today. He was instructed to stay away from tight and constricting boots. I stressed the importance of wearing his AFO that he got from [employer], as this has an offloading pocket in the exact area of his previous ulcer. We again discussed the p ossibility of having alterations made to this brace if needed in the future. Patient was educated on all signs and symptoms of local and systemic infection and he is instructed to go to the emergency room immediately should he notice any of these. All questions were answered to the patient's satisfaction. Patient will follow-up at the wound healing center in 1 week to check on progress, but was instructed to follow-up sooner if needed before then.
[2019-09-29 10:47] VITALS: BP 101/68; PULSE 78; RESP 20; TEMP 36.4; BMI 40.1
--- NOTE | 2019-09-29 12:12 | PCM.WC.PN ---
(1) Chronic ulcer of left foot with fat layer exposed Status: Chronic Current Visit: No Code(s): L97.522 - Non-pressure chronic ulcer of other part of left foot with fat layer exposed (2) Neuropathy of left lower extremity Status: Chronic Current Visit: No Code(s): G57.92 - Unspecified mononeuropathy of left lower limb (3) Other hammer toe(s) (acquired), right foot Status: Acute Current Visit: No Code(s): M20.41 - Other hammer toe(s) (acquired), right foot (4) Other hammer toe(s) (acquired), left foot Status: Chronic Current Visit: No Code(s): M20.42 - Other hammer toe(s) (acquired), left foot (5) PVD (peripheral vascular disease) Status: Chronic Current Visit: No Code(s): I73.9 - Peripheral vascular disease, unspecified (6) Delayed wound healing Status: Acute Current Visit: No Code(s): T14.8XXD - Other injury of unspecified body region, subsequent encounter (7) Non-compliance Status: Chronic Current Visit: No Code(s): Z91.19 - Patient's noncompliance with other medical treatment and regimen Type of Wound Date of Service: 09/29/19 Chief Complaint: Ulcer to left plantar foot History of Wound: This 64-year-old male presents back to the wound healing center today for re-ulceration to the distal plantar aspect of his left foot. Patient states she noticed the area starting to break back down a couple of weeks ago and is slowly been getting worse. He says he wanted to get in before it got bad. Patient denies any redness to the area or any drainage from the ulcer site. He says he has been keeping it dressed with a gauze dressing. He denies any feelings of nausea, vomiting, fever, chills. Progress of Wound: Ulcer shows slight improvement today. Patient denies any feelings of nausea, vomiting, fever, chills. - Physical Exam Vital Signs Temp Pulse Resp BP 97.5 F L 78 20 H 101/68 09/29/19 10:47 09/29/19 10:47 09/29/19 10:47 09/29/19 10:47 General: Alert, Oriented x3, Cooperative, No apparent distress Extremities: No cyanosis, Capillary Refill Less than 3 Seconds, No Calf Tenderness, Diminished Peripheral Pulses - DP and PT pulses faintly palpable bilateral, Edema - Slight lower extremity edema Skin: Ulcer/ Wound - Ulcer to the left distal plantar forefoot with fat layer exposed. The base is a mixture of adherent slough, fibrin, and majority of granular tissue as well as surrounding hyperkeratotic tissue. There is no probing to bone, no tracking, no undermining, no purulence, no extending or surrounding cellulitis, and no increase in warmth to the area at this time. Wound Measurements and Assessment WC - Nurse 1 - General Ulcer Measurement Start: 09/22/19 10:47 Freq: Status: Active Protocol: Activity Type Activity Date Activity User E-Sign Co-Sign Detail Recorded Client Recorded Date Recorded By Document 09/29/19 10:47 DL [id number] 09/29/19 10:52 DL 09/29/19 10:47 Wound Center Nurse 1 [Ulcer Assessment] #9- L PLANTAR FOOT -Current Size (cm) - Length 0.1 -Current Size (cm) - Width 0.1 -Current Size (cm) - Depth 0.1 -Total Square Cm 0.01 -Photo Taken No -Exudate Amt None Present -Wound Margin Thickened -Granulation Amt Large (67-100%) -Granulation Quality Pale -Necrosis Amt None Present (0 %) -Structure Exposed N/A -Texture (Talisha-wound Skin Appearance) Callus -Moisture (Talisha-wound Skin Appearance No Abnormality ) -Color (Talisha-wound Skin Appearance) No Abnormality -Temperature (Talisha-wound Skin No Abnormality Appearance) (Pt Warm) -Tenderness on Palpation (Talisha-wound No Skin Appearance) -Ulcer Cleansing Rinsed/ Irrigated with Saline -Foul Odor after Cleansing No -Anesthetic Used 4% Lidocaine Solution WC - Nurse 2 - General Ulcer CM Notes Start: 09/22/19 10:47 Freq: Status: Active Protocol: Activity Type Activity Date Activity User E-Sign Co-Sign Detail Recorded Client Recorded Date Recorded By Document 09/29/19 11:42 DL [id number] 09/29/19 11:46 DL 09/29/19 11:42 Wound Center Nurse 2 [Procedure/Treatment] -Correct Patient Yes -Correct Side, Site, Position Yes -Correct Procedure Yes -Procedure Performed Yes -Type of Procedure Debridement -Clinical Debridement Subcutaneous -Post Debridement Size (cm) - Length 0.2 -Post Debridement Size (cm) - Width 0.4 -Post Debridement Size (cm) - Depth 0.2 -Total Square Cm 0.08 -Ulcer Cleansing Rinsed/ Irrigated with Saline -Foul Odor after Cleansing No -Bioengineered Tissue No -Bleeding Controlled with NA -Offloading Yes -Treatment Response Procedure Tolerated Well [See Physician Procedure note for Specifics] Pain Scale: 0-10 Numeric [Pain] -Is Patient Pain Free? Yes Musculoskeletal: - - No significant tenderness appreciated with ulcer site manipulation today. Hammertoe deformities of digits 2?5 of the right and left foot. Bilateral hallux malleus deformities. Neurological: - - Altered lower extremity sensation due to patient's neuropathy status Psych/Mental Status: Normal Affect, Appropriate Debridement Note Post-Debridement Measurements/Treatment WC - Nurse 2 - General Ulcer CM Notes Start: 09/22/19 10:47 Freq: Status: Active Protocol: Activity Type Activity Date Activity User E-Sign Co-Sign Detail Recorded Client Recorded Date Recorded By Document 09/22/19 11:12 DV [id number] 09/22/19 11:14 DV Document 09/29/19 11:42 DL [id number] 09/29/19 11:46 DL 09/22/19 09/29/19 11:12 11:42 Wound Center Nurse 2 #9- L PLANTAR FOOT -Time 11:13 -Correct Patient Yes Yes -Correct Side, Site, Position Yes Yes -Correct Procedure Yes Yes -Procedure Performed Yes Yes -Type of Procedure Debridement Debridement -Clinical Debridement Subcutaneous Subcutaneous -Post Debridement Size (cm) - Length 0.3 0.2 -Post Debridement Size (cm) - Width 0.4 0.4 -Post Debridement Size (cm) - Depth 0.2 0.2 -Total Square Cm 0.12 0.08 -Wound/Ulcer Outcome Not Healed -Ulcer Cleansing Rinsed/ Rinsed/ Irrigated with Irrigated with Saline Saline -Foul Odor after Cleansing No No -Bioengineered Tissue No No -Bleeding Controlled with Pressure NA -Offloading No Yes -Type of Offloading Surgical Shoe -Treatment Response Procedure Procedure Tolerated Well Tolerated Well Pain Scale: 0-10 Numeric Is Patient Pain Free? Yes Yes Wound debrided: Left distal plantar forefoot Laterality: Left Type of Debridement: Excisional debridement Anesthesia Used: 4% Lidocaine Solution Depth: in the subcutaneous layer Percentage of wound debrided: 100 Instrument Used: #15 blade Tissue Removed: Adherent slough, fibrin, hyperkeratotic tissue Severity: Fat Layer Exposed Amount of bleeding with debridement: Mild Bleeding Controlled with: Pressure Patient tolerated procedure well Assessment/Plan Assessment: Ulcer dorsal left fourth toe. Ulcer with fat layer exposed to left distal plantar foot. Neuropathy left leg. Other comorbidities Plan: Patient was carefully examined and evaluated today for ulcer of left plantar distal foot. Slight improvement noted with slightly less hyperkeratotic tissue surrounding the site than normal. The ulcer site was carefully debrided as noted in the clinical panel. Once complete, the site was then dressed with Keena to the base followed by dry sterile dressing. The patient was instructed on the importance of keeping the ends of toes as well as the bottom of his left foot offloaded all times with the help of offloading shoes and his left AFO brace with offloading pocket. He was instructed to get back into his AFO and to make sure that there is ample room for his feet in his boots with his AFO. The importance of keeping pressure off of the ulcer site was stressed in great detail to the patient again today. The importance of proper shoe gear with enough height and width was stressed as well again today. He was instructed to stay away from tight and constricting boots. I stressed the importance of wearing his AFO that he got from [employer], as this has an offloading pocket in the exact area of his previous ulcer. We again discussed the possibility of having alterations made to this brace if needed in the future if needed. Patient was educated on all signs and symptoms of local and systemic infection and he is instructed to go to the emergency room immediately should he notice any of these. All questions were answered to the patient's satisfaction. Patient will follow-up at the wound healing center in 1 week to check on progress, but was instructed to follow-up sooner if needed before then.
== END 2019-10-14 23:59 ==
LOC: WC 00:44
PROVIDERS: Visit Provider Podiatrist
DX: I73.9 Peripheral vascular disease, unspecified (principal); Z91.19 Patient's noncompliance with other medical treatment and regimen; L97.522 Non-pressure chronic ulcer of other part of left foot with fat layer exposed; E11.40 Type 2 diabetes mellitus with diabetic neuropathy, unspecified; M20.41 Other hammer toe(s) (acquired), right foot
CPT/HCPCS: 11042

== ENCOUNTER 2019-10-20 08:25 | Outpatient (RCR) | payer MEDICARE, SELFPAY ==
[2019-10-15 00:42] VITALS: BP 101/68; PULSE 78; RESP 20; TEMP 36.4
== END 2019-11-12 23:59 ==
LOC: WC 08:25
PROVIDERS: Visit Provider Podiatrist
DX: Z09 Encounter for follow-up examination after completed treatment for conditions other than malignant neoplasm (principal)

== ENCOUNTER 2019-12-29 11:30 | Outpatient (RCR) | payer MEDICARE, SELFPAY ==
[2019-11-13 00:34] VITALS: BP 101/68; PULSE 78; RESP 20; TEMP 36.4
[2019-12-15 12:02] VITALS: BP 148/80; PULSE 78; RESP 18; TEMP 36.7; BMI 40.1
--- NOTE | 2019-12-15 19:25 | PCM.WC.HP ---
(1) Other hammer toe(s) (acquired), right foot Status: Acute Current Visit: Yes Code(s): M20.41 - Other hammer toe(s) (acquired), right foot (2) Pressure ulcer of toe, stage 2 Status: Acute Current Visit: Yes Qualifiers: Laterality: right Qualified Code(s): L89.892 - Pressure ulcer of other site, stage 2 Code(s): L89.892 - Pressure ulcer of other site, stage 2 (3) Neuropathy of left lower extremity Status: Chronic Current Visit: Yes Code(s): G57.92 - Unspecified mononeuropathy of left lower limb (4) PVD (peripheral vascular disease) Status: Chronic Current Visit: Yes Code(s): I73.9 - Peripheral vascular disease, unspecified History of Present Illness Date of Service: 12/16/19 Chief Complaint: Right Toe Ulcer History of Wound: Mr Ferro present with recurrent right great toe ulcer. History of Hallux and Hammer toe deformity. Also poor sensation in his feet due to peripheral neuropathy. Does not know how present ulcer surfaced. No significant pain. Denies chills, fever or otherwise feeling of unwell. Past Medical History Past Medical History: Chronic Problems Neuropathy of left lower extremity (Chronic) Other hammer toe(s) (acquired), left foot (Chronic) PVD (peripheral vascular disease) (Chronic) Chronic ulcer of left foot with fat layer exposed (Chronic) Non-compliance (Chronic) Surgical History: - - Hx L ankle/heel surgery 2008 Allergies/Adverse Reactions: Allergies No Known Allergies Allergy (Verified 06/23/19 11:07) Home Medications: Ambulatory Orders Medication Instructions Recorded Adalimumab [Humira] 10 mg SQ 08/11/17 Allopurinol 100 mg PO DAILY 08/11/17 Aspirin [Aspirin, Baby] 81 mg PO DAILY@0800 08/11/17 Budesonide/Formoterol 160/4.5 2 puff INHALATION DAILY PRN 08/11/17 [Symbicort 160/4.5 Mcg Inhaler (SP)] Citalopram [Celexa] 40 mg PO DAILY 08/11/17 Docusate Sodium [Colace] 100 mg PO DAILY 08/11/17 Gabapentin [Neurontin] 600 mg PO TID 08/11/17 Modafinil [Provigil] 100 mg PO DAILY 08/11/17 Naproxen [Naprosyn] 500 mg PO BID PRN PRN 08/11/17 Tamsulosin HCl [Flomax] 0.4 mg PO DAILY 08/11/17 Tizanidine HCl 4 mg PO PRN PRN 08/11/17 Fluticasone/Salmeterol [Advair 1 each IH DAILY PRN PRN 04/30/18 250-50 Diskus] Lactobacillus Acidophilus 1 each PO DAILY 12/16/18 [Acidophilus] Smoking Status: Never smoker Review of Systems Constitutional: Denies: Anorexia, Chills, Fever Eyes: Denies: Blurred vision, Pain, Redness HEENT: Denies: Difficulty Swallowing Cardiovascular: Denies: Chest Pain, Chest Pressure Respiratory: Denies: Hemoptysis Gastrointestinal: Denies: Abdominal Pain, Hematemesis, Vomiting Skin: Denies: Jaundice - Physical Exam Vital Signs Temp Pulse Resp BP 98.0 F 78 18 148/80 H 12/15/19 12:02 12/15/19 12:02 12/15/19 12:02 12/15/19 12:02 General: Alert, Oriented x3, Cooperative, No apparent distress HEENT: Atraumatic Oral: Moist Mucosa Neck: Supple Abdomen: Non Tender Extremities: No cyanosis Skin: Ulcer/ Wound Wound Measurements and Assessment WC - Nurse 1 - General Ulcer Measurement Start: 12/15/19 12:01 Freq: Status: Active Protocol: Activity Type Activity Date Activity User E-Sign Co-Sign Detail Recorded Client Recorded Date Recorded By Document 12/15/19 12:02 DV [id number] 12/15/19 12:09 DV 12/15/19 12:02 Wound Center Nurse 1 [Ulcer Assessment] #10 Medial Right Grt Toe -Combined with other wound No -Current Size (cm) - Length 0.1 -Current Size (cm) - Width 0.1 -Current Size (cm) - Depth 0.1 -Total Square Cm 0.01 -Date of Last Picture (Recall this 12/15/19 field) -Photo Taken Yes -Epithelialization None Present -Tunneling No -Undermining/Tunneling No -Circular Undermining No -Classification - Thickness Full Thickness without Exposed Support Structure -Exudate Amt None Present -Wound Margin Thickened -Granulation Amt None Present (0 %) -Granulation Quality N/A -Slough/Fibrin Yes -Necrosis Amt Medium (34-66%) -Necrotic Tissue Type Eschar -Structure Exposed None/Limited to Skin Breakdown -Texture (Talisha-wound Skin Appearance) Assessed, Scarring -Moisture (Talisha-wound Skin Appearance Assessed,Dry/ ) Scaly -Color (Talisha-wound Skin Appearance) No Abnormality, Assessed -Temperature (Talisha-wound Skin No Abnormality Appearance) (Pt Warm) -Tenderness on Palpation (Talisha-wound No Skin Appearance) -Ulcer Cleansing Rinsed/ Irrigated with Saline -Foul Odor after Cleansing No -Anesthetic Used 4% Lidocaine Solution #9- L PLANTAR FOOT -Combined with other wound No -Current Size (cm) - Length 0.1 -Current Size (cm) - Width 0.1 -Current Size (cm) - Depth 0.1 -Total Square Cm 0.01 -Date of Last Picture (Recall this 12/15/19 field) -Photo Taken Yes -Epithelialization None Present -Undermining/Tunneling No -Circular Undermining No -Classification - Thickness Full Thickness without Exposed Support Structure -Exudate Amt None Present -Wound Margin Thickened -Granulation Amt None Present (0 %) -Granulation Quality N/A -Slough/Fibrin Yes -Necrosis Amt Small (1-33%) -Necrotic Tissue Type Eschar -Structure Exposed None/Limited to Skin Breakdown -Texture (Talisha-wound Skin Appearance) Assessed, Scarring -Moisture (Talisha-wound Skin Appearance Assessed,Dry/ ) Scaly -Color (Talisha-wound Skin Appearance) No Abnormality, Assessed -Temperature (Talisha-wound Skin No Abnormality Appearance) (Pt Warm) -Tenderness on Palpation (Talisha-wound No Skin Appearance) -Ulcer Cleansing Rinsed/ Irrigated with Saline -Foul Odor after Cleansing No -Anesthetic Used 4% Lidocaine Solution WC - Nurse 2 - General Ulcer CM Notes Start: 12/15/19 12:01 Freq: Status: Active Protocol: Activity Type Activity Date Activity User E-Sign Co-Sign Detail Recorded Client Recorded Date Recorded By Document 12/15/19 12:22 MW [id number] 12/15/19 12:31 MW 12/15/19 12:22 Wound Center Nurse 2 [Procedure/Treatment] #10 Medial Right Grt Toe -Time 12:24 -Correct Patient Yes -Correct Side, Site, Position Yes -Correct Procedure Yes -Procedure Performed Yes -Type of Procedure Debridement -Clinical Debridement Subcutaneous -Post Debridement Size (cm) - Length 0.4 -Post Debridement Size (cm) - Width 0.3 -Post Debridement Size (cm) - Depth 0.1 -Total Square Cm 0.12 -Wound/Ulcer Outcome Not Healed -Ulcer Cleansing Rinsed/ Irrigated with Saline -Foul Odor after Cleansing No -Bioengineered Tissue No -Bleeding Controlled with Pressure -Offloading No -Treatment Response Procedure Tolerated Well #9- L PLANTAR FOOT -Time 12:24 -Correct Patient Yes -Correct Side, Site, Position Yes -Correct Procedure Yes -Procedure Performed No -Wound/Ulcer Outcome Healed- Epithelialized -Ulcer Cleansing Not Cleansed -Bleeding Controlled with NA -Offloading No -Treatment Response Procedure Tolerated Well [See Physician Procedure note for Specifics] Pain Scale: 0-10 Numeric [Pain] -Is Patient Pain Free? Yes Musculoskeletal: No Muscle Wasting Neurological: Cranial nerves II-XII grossly intact Psych/Mental Status: Normal Affect Debridement Note Post-Debridement Measurements/Treatment WC - Nurse 2 - General Ulcer CM Notes Start: 12/15/19 12:01 Freq: Status: Active Protocol: Activity Type Activity Date Activity User E-Sign Co-Sign Detail Recorded Client Recorded Date Recorded By Document 12/15/19 12:22 MW [id number] 12/15/19 12:31 MW 12/15/19 12:22 Wound Center Nurse 2 #10 Medial Right Grt Toe -Time 12:24 -Correct Patient Yes -Correct Side, Site, Position Yes -Correct Procedure Yes -Procedure Performed Yes -Type of Procedure Debridement -Clinical Debridement Subcutaneous -Post Debridement Size (cm) - Length 0.4 -Post Debridement Size (cm) - Width 0.3 -Post Debridement Size (cm) - Depth 0.1 -Total Square Cm 0.12 -Wound/Ulcer Outcome Not Healed -Ulcer Cleansing Rinsed/ Irrigated with Saline -Foul Odor after Cleansing No -Bioengineered Tissue No -Bleeding Controlled with Pressure -Offloading No -Treatment Response Procedure Tolerated Well #9- L PLANTAR FOOT -Time 12:24 -Correct Patient Yes -Correct Side, Site, Position Yes -Correct Procedure Yes -Procedure Performed No -Wound/Ulcer Outcome Healed- Epithelialized -Ulcer Cleansing Not Cleansed -Bleeding Controlled with NA -Offloading No -Treatment Response Procedure Tolerated Well Pain Scale: 0-10 Numeric Is Patient Pain Free? Yes Wound debrided: Right great toe Wound Grade/Stage: Stage II Type of Debridement: Excisional debridement Anesthesia Used: 4% Lidocaine Solution Depth: Down to and including healthy tissue Percentage of wound debrided: 100 Instrument Used: 3mm curette Tissue Removed: Slough and devitalized tissue Severity: Fat Layer Exposed Amount of bleeding with debridement: Mild Bleeding Controlled with: Pressure Patient tolerated procedure well Assessment/Plan Active Problems Pressure ulcer of toe, stage 2 (Acute) Neuropathy of left lower extremity (Chronic) Other hammer toe(s) (acquired), right foot (Acute) PVD (peripheral vascular disease) (Chronic) Assessment: Same as above. Plan: Debridement done as documented above, procedure was well tolerated. Small stage II likely pressure ulcer due to deformity and callus. Lenghty discussion had with patient on appropriate foot wear and toe seperators. He expressed understanding. For now, pomogran daily with adaptic over top. Elevate lower extremity when seated and in bed. Exercise as tolerated. No history of DM. Increase protein intake. His questions were answered and he was advised to call with any other question or concerns. Follow up in 1 week. Multi Select Codes - Visit Charges Office Visit/Consults: 55241 OV L3 New - Integumentary Integumentary CPT Codes: 72399 Caterina subq tissue 20 sq cm/<
[2019-12-29 11:35] VITALS: BP 140/86; PULSE 102; RESP 18; TEMP 36.7; BMI 40.1
--- NOTE | 2019-12-29 12:06 | PCM.WC.PN ---
(1) Other hammer toe(s) (acquired), right foot Status: Acute Current Visit: Yes Code(s): M20.41 - Other hammer toe(s) (acquired), right foot (2) Pressure ulcer of toe, stage 2 Status: Acute Current Visit: Yes Qualifiers: Laterality: right Qualified Code(s): L89.892 - Pressure ulcer of other site, stage 2 Code(s): L89.892 - Pressure ulcer of other site, stage 2 (3) Neuropathy of left lower extremity Status: Chronic Current Visit: Yes Code(s): G57.92 - Unspecified mononeuropathy of left lower limb (4) PVD (peripheral vascular disease) Status: Chronic Current Visit: Yes Code(s): I73.9 - Peripheral vascular disease, unspecified Type of Wound Date of Service: 12/29/19 Chief Complaint: Right Toe Ulcer History of Wound: Mr Ferro present with recurrent right great toe ulcer. History of Hallux and Hammer toe deformity. Also poor sensation in his feet due to peripheral neuropathy. Does not know how present ulcer surfaced. No significant pain. Denies chills, fever or otherwise feeling of unwell. Progress of Wound: Right great toe is healed. - Physical Exam Vital Signs Temp Pulse Resp BP 98.0 F 102 H 18 140/86 H 12/29/19 11:35 12/29/19 11:35 12/29/19 11:35 12/29/19 11:35 General: Alert, Oriented x3, Cooperative, No apparent distress HEENT: Atraumatic, Normocephalic Oral: Moist Mucosa Neck: Supple Abdomen: Non Tender, Obese Wound Measurements and Assessment WC - Nurse 1 - General Ulcer Measurement Start: 12/15/19 12:01 Freq: Status: Active Protocol: Activity Type Activity Date Activity User E-Sign Co-Sign Detail Recorded Client Recorded Date Recorded By Document 12/29/19 11:35 MW [id number] 12/29/19 11:39 MW 12/29/19 11:35 Wound Center Nurse 1 [Ulcer Assessment] #10 Medial Right Grt Toe -Combined with other wound No -Current Size (cm) - Length 0.1 -Current Size (cm) - Width 0.1 -Current Size (cm) - Depth 0.1 -Total Square Cm 0.01 -Photo Taken No -Epithelialization None Present -Tunneling No -Undermining/Tunneling No -Circular Undermining No -Exudate Amt None Present -Wound Margin Flat & Intact -Granulation Amt None Present (0 %) -Granulation Quality N/A -Slough/Fibrin Yes -Necrosis Amt None Present (0 %) -Structure Exposed N/A -Texture (Talisha-wound Skin Appearance) Assessed,Callus -Moisture (Talisha-wound Skin Appearance Assessed,Dry/ ) Scaly -Color (Talisha-wound Skin Appearance) No Abnormality, Assessed -Temperature (Talisha-wound Skin No Abnormality Appearance) (Pt Warm) -Tenderness on Palpation (Talisha-wound Yes Skin Appearance) -Ulcer Cleansing Rinsed/ Irrigated with Saline -Foul Odor after Cleansing No -Anesthetic Used 5% Lidocaine Gel [Edema Assessment] -Lower Limb Edema Present No WC - Nurse 2 - General Ulcer CM Notes Start: 12/15/19 12:01 Freq: Status: Active Protocol: Activity Type Activity Date Activity User E-Sign Co-Sign Detail Recorded Client Recorded Date Recorded By Document 12/29/19 11:58 MW [id number] 12/29/19 12:03 MW 12/29/19 11:58 Wound Center Nurse 2 [Procedure/Treatment] #10 Medial Right Grt Toe -Time 11:58 -Correct Patient Yes -Correct Side, Site, Position Yes -Correct Procedure Yes -Procedure Performed No -Post Debridement Size (cm) - Length 0 -Post Debridement Size (cm) - Width 0 -Post Debridement Size (cm) - Depth 0 -Total Square Cm 0 -Wound/Ulcer Outcome Healed- Epithelialized [See Physician Procedure note for Specifics] Pain Scale: 0-10 Numeric [Pain] -Is Patient Pain Free? Yes Musculoskeletal: No Muscle Wasting Psych/Mental Status: Normal Affect Debridement Note Post-Debridement Measurements/Treatment WC - Nurse 2 - General Ulcer CM Notes Start: 12/15/19 12:01 Freq: Status: Active Protocol: Activity Type Activity Date Activity User E-Sign Co-Sign Detail Recorded Client Recorded Date Recorded By Document 12/15/19 12:22 MW [id number] 12/15/19 12:31 MW Document 12/29/19 11:58 MW [id number] 12/29/19 12:03 MW 12/15/19 12/29/19 12:22 11:58 Wound Center Nurse 2 #10 Medial Right Grt Toe -Time 12:24 11:58 -Correct Patient Yes Yes -Correct Side, Site, Position Yes Yes -Correct Procedure Yes Yes -Procedure Performed Yes No -Type of Procedure Debridement -Clinical Debridement Subcutaneous -Post Debridement Size (cm) - Length 0.4 0 -Post Debridement Size (cm) - Width 0.3 0 -Post Debridement Size (cm) - Depth 0.1 0 -Total Square Cm 0.12 0 -Wound/Ulcer Outcome Not Healed Healed- Epithelialized -Ulcer Cleansing Rinsed/ Irrigated with Saline -Foul Odor after Cleansing No -Bioengineered Tissue No -Bleeding Controlled with Pressure -Offloading No -Treatment Response Procedure Tolerated Well #9- L PLANTAR FOOT -Time 12:24 -Correct Patient Yes -Correct Side, Site, Position Yes -Correct Procedure Yes -Procedure Performed No -Wound/Ulcer Outcome Healed- Epithelialized -Ulcer Cleansing Not Cleansed -Bleeding Controlled with NA -Offloading No -Treatment Response Procedure Tolerated Well Pain Scale: 0-10 Numeric Is Patient Pain Free? Yes Yes Assessment/Plan Active Problems Pressure ulcer of toe, stage 2 (Acute) Neuropathy of left lower extremity (Chronic) Other hammer toe(s) (acquired), right foot (Acute) PVD (peripheral vascular disease) (Chronic) Assessment: Same as above. Plan: Right great toe is healed. Minimal area on right second toe after trauma. He was advised to apply Promogran daily for 2 weeks to that area. Wear closed toed shoes when ambulating. Toe seperators also recommended. Significnat hammer toe deformity. Examine feet daily. Continue other wound care protocol/ follow up with Podiatry. His questions were answered and he was advised to call with any further questions or concerns. Discharge from the wound clinic. Office Visits / Consults: [id number] OV L3 Est
== END 2020-01-12 23:59 ==
LOC: WC 11:30
PROVIDERS: Visit Provider Podiatrist
DX: I73.9 Peripheral vascular disease, unspecified (principal); M20.41 Other hammer toe(s) (acquired), right foot; L89.892 Pressure ulcer of other site, stage 2; G62.9 Polyneuropathy, unspecified; Z91.19 Patient's noncompliance with other medical treatment and regimen; Z79.82 Long term (current) use of aspirin; Z79.899 Other long term (current) drug therapy
CPT/HCPCS: 11042; 99213; G0463

== ENCOUNTER 2020-03-01 10:52 | Outpatient (RCR) | payer MEDICARE, SELFPAY ==
[2020-03-01 11:02] VITALS: BP 137/76; PULSE 76; RESP 18; TEMP 37.1; BMI 40.1
--- NOTE | 2020-03-01 16:59 | HP.PCM_ITS ---
(1) Ulcer of right foot with fat layer exposed Status: Acute Current Visit: Yes Code(s): L97.512 - Non-pressure chronic ulcer of other part of right foot with fat layer exposed Comment: Right second toe ulcer. (2) PVD (peripheral vascular disease) Status: Chronic Current Visit: Yes Code(s): I73.9 - Peripheral vascular disease, unspecified History of Present Illness Date of Service: 03/01/20 Chief Complaint: Right Toe Ulcer History of Wound: Mr. Ferro presents with right second toe ulcer. He reports initial blistering after putting on his stockings too tight per patient. Subsequently noted ulceration. Has not applied anything to it. Denies fever, chills or feeling of unwell. Past Medical History Past Medical History: Chronic Problems Neuropathy of left lower extremity (Chronic) Other hammer toe(s) (acquired), left foot (Chronic) PVD (peripheral vascular disease) (Chronic) Chronic ulcer of left foot with fat layer exposed (Chronic) Non-compliance (Chronic) Surgical History: - - Hx L ankle/heel surgery 2008 Allergies/Adverse Reactions: Allergies No Known Allergies Allergy (Verified 06/23/19 11:07) Home Medications: Ambulatory Orders Medication Instructions Recorded Adalimumab [Humira] 10 mg SQ 08/11/17 Allopurinol 100 mg PO DAILY 08/11/17 Aspirin [Aspirin, Baby] 81 mg PO DAILY@0800 08/11/17 Budesonide/Formoterol 160/4.5 2 puff INHALATION DAILY PRN 08/11/17 [Symbicort 160/4.5 Mcg Inhaler (SP)] Citalopram [Celexa] 40 mg PO DAILY 08/11/17 Docusate Sodium [Colace] 100 mg PO DAILY 08/11/17 Gabapentin [Neurontin] 600 mg PO TID 08/11/17 Modafinil [Provigil] 100 mg PO DAILY 08/11/17 Naproxen [Naprosyn] 500 mg PO BID PRN PRN 08/11/17 Tamsulosin HCl [Flomax] 0.4 mg PO DAILY 08/11/17 Tizanidine HCl 4 mg PO PRN PRN 08/11/17 Fluticasone/Salmeterol [Advair 1 each IH DAILY PRN PRN 04/30/18 250-50 Diskus] Lactobacillus Acidophilus 1 each PO DAILY 12/16/18 [Acidophilus] Smoking Status: Never smoker Review of Systems Constitutional: Denies: Anorexia, Chills, Fever, Night Sweats Eyes: Denies: Blurred vision, Pain, Redness HEENT: Denies: Difficulty Hearing, Difficulty Swallowing, Dysphasia Cardiovascular: Denies: Chest Pain, Claudication, Chest Pressure, Chest Tightness Respiratory: Denies: Cough, Hemoptysis Gastrointestinal: Denies: Abdominal Pain, Hematemesis, Vomiting Genitourinary: Denies: Hematuria - Physical Exam Vital Signs Temp Pulse Resp BP 98.8 F 76 18 137/76 H 03/01/20 11:02 03/01/20 11:02 03/01/20 11:02 03/01/20 11:02 General: Alert, Oriented x3, Cooperative, No apparent distress HEENT: Atraumatic, Normocephalic Oral: Moist Mucosa Neck: Supple Lungs: Normal air movement Abdomen: Non Tender, Obese Extremities: No cyanosis Skin: Ulcer/ Wound Wound Measurements and Assessment WC - Nurse 1 - General Ulcer Measurement Start: 03/01/20 11:00 Freq: Status: Active Protocol: Activity Type Activity Date Activity User E-Sign Co-Sign Detail Recorded Client Recorded Date Recorded By Document 03/01/20 11:02 [id number] 03/01/20 11:21 BS 03/01/20 11:02 Wound Center Nurse 1 [Ulcer Assessment] #12 R second toe lateral -Combined with other wound No -Current Size (cm) - Length 2.0 -Current Size (cm) - Width 2.3 -Current Size (cm) - Depth 0.1 -Total Square Cm 4.60 -Date of Last Picture (Recall this 03/01/20 field) -Photo Taken Yes -Classification - Thickness Partial Thickness -Granulation Quality [employer],Red -Texture (Talisha-wound Skin Appearance) Assessed,Callus ,Scarring -Moisture (Talisha-wound Skin Appearance Assessed, ) Maceration,Dry/ Scaly -Color (Talisha-wound Skin Appearance) No Abnormality, Assessed -Temperature (Talisha-wound Skin No Abnormality Appearance) (Pt Warm) -Tenderness on Palpation (Talisha-wound Yes Skin Appearance) -Ulcer Cleansing Rinsed/ Irrigated with Saline -Foul Odor after Cleansing No -Anesthetic Used 4% Lidocaine Solution #11 R second toe distal -Combined with other wound No -Current Size (cm) - Length 0.5 -Current Size (cm) - Width 0.2 -Current Size (cm) - Depth 0.1 -Total Square Cm 0.10 -Date of Last Picture (Recall this 03/01/20 field) -Photo Taken Yes -Tunneling No -Classification - Thickness Partial Thickness -Granulation Quality [employer],Red -Texture (Talisha-wound Skin Appearance) Assessed,Callus ,Scarring -Moisture (Talisha-wound Skin Appearance Assessed, ) Maceration,Dry/ Scaly -Color (Talisha-wound Skin Appearance) No Abnormality, Assessed -Temperature (Talisha-wound Skin No Abnormality Appearance) (Pt Warm) -Tenderness on Palpation (Talisha-wound Yes Skin Appearance) -Ulcer Cleansing Rinsed/ Irrigated with Saline -Foul Odor after Cleansing No -Anesthetic Used 4% Lidocaine Solution WC - Nurse 2 - General Ulcer CM Notes Start: 03/01/20 11:00 Freq: Status: Active Protocol: Activity Type Activity Date Activity User E-Sign Co-Sign Detail Recorded Client Recorded Date Recorded By Document 03/01/20 13:08 [id number] 03/01/20 13:09 03/01/20 13:08 Wound Center Nurse 2 [Procedure/Treatment] #12 R second toe lateral -Time 11:35 -Correct Patient Yes -Correct Side, Site, Position Yes -Correct Procedure Yes -Procedure Performed Yes -Type of Procedure Debridement -Clinical Debridement Subcutaneous -Post Debridement Size (cm) - Length 4 -Post Debridement Size (cm) - Width 2 -Post Debridement Size (cm) - Depth 0.1 -Total Square Cm 8 -Wound/Ulcer Outcome Not Healed -Ulcer Cleansing Rinsed/ Irrigated with Saline -Foul Odor after Cleansing No -Bleeding Controlled with Pressure -Treatment Response Procedure Tolerated Well #11 R second toe distal -Wound/Ulcer Outcome Converted [See Physician Procedure note for Specifics] Musculoskeletal: No Muscle Wasting Neurological: Cranial nerves II-XII grossly intact Psych/Mental Status: Normal Affect Debridement Note Post-Debridement Measurements/Treatment - Nurse 2 - General Ulcer CM Notes Start: 03/01/20 11:00 Freq: Status: Active Protocol: Activity Type Activity Date Activity User E-Sign Co-Sign Detail Recorded Client Recorded Date Recorded By Document 03/01/20 13:08 PL [id number] 03/01/20 13:09 PL 03/01/20 13:08 Wound Center Nurse 2 #12 R second toe lateral -Time 11:35 -Correct Patient Yes -Correct Side, Site, Position Yes -Correct Procedure Yes -Procedure Performed Yes -Type of Procedure Debridement -Clinical Debridement Subcutaneous -Post Debridement Size (cm) - Length 4 -Post Debridement Size (cm) - Width 2 -Post Debridement Size (cm) - Depth 0.1 -Total Square Cm 8 -Wound/Ulcer Outcome Not Healed -Ulcer Cleansing Rinsed/ Irrigated with Saline -Foul Odor after Cleansing No -Bleeding Controlled with Pressure -Treatment Response Procedure Tolerated Well #11 R second toe distal -Wound/Ulcer Outcome Converted Wound debrided: Right second toe cluster Type of Debridement: Excisional debridement Anesthesia Used: 4% Lidocaine Solution Depth: Down to and including healthy tissue, in the subcutaneous layer Percentage of wound debrided: 100 Instrument Used: 3mm curette, #15 blade, Forceps Tissue Removed: Slough and devitalized tissue Severity: Fat Layer Exposed Amount of bleeding with debridement: Mild Bleeding Controlled with: Pressure Patient tolerated procedure well Assessment/Plan Active Problems PVD (peripheral vascular disease) (Chronic) Ulcer of right foot with fat layer exposed (Acute) Right second toe ulcer. Assessment: Same as above. Plan: Debridement done as documented above. Procedure was well-tolerated. Fibracol daily. Gauze and tape over top. He was advised to establish with a pipe line inspector due to his chronic hammertoes and deformities. Continue compression stockings and leg elevation. His questions were answered and he was advised to call with any further questions or concerns. Follow-up in 2 weeks. This note was generated with [employer] dictation software. It may contain incorrect words, spelling, and punctuation that were not noted in checking the note before signing. Multi Select Codes - Visit Charges Office Visit/Consults: 90872 OV L3 Est - Integumentary Integumentary CPT Codes: 54367 Caterina subq tissue 20 sq cm/<
== END 2020-03-13 23:59 ==
LOC: WC 10:52
PROVIDERS: Visit Provider Internal Medicine
DX: I73.9 Peripheral vascular disease, unspecified (principal); L97.512 Non-pressure chronic ulcer of other part of right foot with fat layer exposed; G62.9 Polyneuropathy, unspecified; Z91.19 Patient's noncompliance with other medical treatment and regimen; M20.41 Other hammer toe(s) (acquired), right foot
CPT/HCPCS: 11042; 99212; G0463

== ENCOUNTER → 2020-03-27 | Outpatient (CLI) | payer MEDICARE, SELFPAY ==
[2020-03-15 11:09] VITALS: BMI 40.1
[2020-03-27 17:55] LABS: Hematocrit 45.1 % (40-54); Hemoglobin 14.4 g/dL (13.0-16.5); Mean Corp Hgb Conc 31.9 g/dL (32-36); Mean Corpuscular Hgb 31.2 pg (27.0-32.0); Mean Corpuscular Volume 97.6 fL (80-94); Mean Platelet Vol. 11.2 fl (6.2-12.0); Platelet Count 264 K/mm3 (150-450); RBC Distribution Width CV 13.7 % (11.6-14.6); RBC Distribution Width SD 48.9 fl (35.1-43.9); Red Blood Count 4.62 M/mm3 (4.6-6.2); White Blood Count 6.3 K/mm3 (4.4-11.0)
[2020-03-27 18:14] LABS: ALB/GLOB Ratio 1.2 RATIO (0.9-2.4); AST(SGOT) 27 U/L (15-37); Alanine Aminotransfer ALT/SGPT 30 U/L (16-61); Albumin, Serum 3.8 g/dL (3.2-5.0); Alkaline Phosphatase 37 U/L (45-117); Anion Gap 4 (5-15); BUN 24 mg/dL (7-18); BUN/Creat Ratio 18.5 RATIO (10-20); Calcium,Total 8.9 mg/dL (8.5-10.1); Chloride 111 mmol/L (98-107); EST Glomerular Filtration Rate 59 mL/min (>60); Est Glom Filt Rate - Afr Amer 71 mL/min (>60); Globulin 3.3 g/dL (2.2-4.2); Glucose 94 mg/dL (74-106); Potassium 4.1 mmol/L (3.5-5.1); Protein, Total 7.1 g/dL (6.4-8.2); Sodium Level 143 mmol/L (136-145)
== END | disposition home or self-care (01) ==
LOC: MTLAB 14:06
PROVIDERS: Referring Provider Physician Assistant; Visit Provider Physician Assistant
DX: L40.0 Psoriasis vulgaris (principal); Z79.899 Other long term (current) drug therapy
CPT/HCPCS: 36415; 80053; 85027

== ENCOUNTER 2020-04-12 11:30 | Outpatient (RCR) | payer MEDICARE, SELFPAY ==
[2020-03-14 00:37] VITALS: BP 137/76; PULSE 76; RESP 18; TEMP 37.1
[2020-03-15 11:09] VITALS: BP 133/78; PULSE 89; RESP 20; TEMP 36.8; BMI 40.1
--- NOTE | 2020-03-15 12:30 | PN.PCM_ITS ---
(1) Pressure ulcer of toe, stage 2 Status: Acute Current Visit: Yes Qualifiers: Code(s): L89.892 - Pressure ulcer of other site, stage 2 (2) Lower extremity neuropathy Status: Acute Current Visit: Yes Code(s): G57.90 - Unspecified mononeuropathy of unspecified lower limb (3) PVD (peripheral vascular disease) Status: Chronic Current Visit: Yes Code(s): I73.9 - Peripheral vascular disease, unspecified Type of Wound Date of Service: 03/15/20 Chief Complaint: Right Toe Ulcer History of Wound: Mr. Ferro presents with right second toe ulcer. He reports initial blistering after putting on his stockings too tight per patient. Subsequently noted ulceration. Has not applied anything to it. Denies fever, chills or feeling of unwell. Progress of Wound: Improving. No new concerns at this time. - Physical Exam Vital Signs Temp Pulse Resp BP 98.2 F 89 20 H 133/78 H 03/15/20 11:09 03/15/20 11:09 03/15/20 11:09 03/15/20 11:09 General: Alert, Oriented x3, Cooperative, No apparent distress HEENT: Atraumatic, Normocephalic Oral: Moist Mucosa Neck: Supple Lungs: Normal air movement Abdomen: Non Tender, Obese Extremities: No cyanosis Skin: Ulcer/ Wound Wound Measurements and Assessment WC - Nurse 1 - General Ulcer Measurement Start: 03/15/20 11:09 Freq: Status: Active Protocol: Activity Type Activity Date Activity User E-Sign Co-Sign Detail Recorded Client Recorded Date Recorded By Document 03/15/20 11:09 [id number] 03/15/20 11:14 DL 03/15/20 11:09 Wound Center Nurse 1 [Ulcer Assessment] #12 R second toe lateral -Current Size (cm) - Length 0.2 -Current Size (cm) - Width 0.2 -Current Size (cm) - Depth 0.2 -Total Square Cm 0.04 -Photo Taken No -Maximum Distance #2 (cm) 0.2 -Circular Undermining Yes -Exudate Amt None Present -Wound Margin Thickened -Granulation Amt Small (1-33%) -Granulation Quality [place] -Necrosis Amt None Present (0 %) -Structure Exposed N/A -Texture (Talisha-wound Skin Appearance) Callus, Localized Edema -Moisture (Talisha-wound Skin Appearance Dry/Scaly ) -Color (Talisha-wound Skin Appearance) Erythema,Rubor -Temperature (Talisha-wound Skin No Abnormality Appearance) (Pt Warm) -Tenderness on Palpation (Talisha-wound No Skin Appearance) -Ulcer Cleansing Rinsed/ Irrigated with Saline -Foul Odor after Cleansing No -Anesthetic Used 4% Lidocaine Solution #11 R second toe distal -Current Size (cm) - Length 0.1 -Current Size (cm) - Width 0.1 -Current Size (cm) - Depth 0.1 -Total Square Cm 0.01 -Photo Taken No -Exudate Amt None Present -Wound Margin Thickened -Granulation Amt Large (67-100%) -Granulation Quality Pale -Necrosis Amt Small (1-33%) -Necrotic Tissue Type Adherent Slough -Structure Exposed N/A -Texture (Talisha-wound Skin Appearance) Localized Edema ,Scarring -Moisture (Talisha-wound Skin Appearance Dry/Scaly ) -Color (Talisha-wound Skin Appearance) Erythema,Rubor -Temperature (Talisha-wound Skin No Abnormality Appearance) (Pt Warm) -Tenderness on Palpation (Talisha-wound No Skin Appearance) -Foul Odor after Cleansing No -Anesthetic Used 4% Lidocaine Solution WC - Nurse 2 - General Ulcer CM Notes Start: 03/15/20 11:09 Freq: Status: Active Protocol: Activity Type Activity Date Activity User E-Sign Co-Sign Detail Recorded Client Recorded Date Recorded By Document 03/15/20 11:31 MW [id number] 03/15/20 11:37 MW 03/15/20 11:31 Wound Center Nurse 2 [Procedure/Treatment] #12 R second toe lateral -Time 11:32 -Correct Patient Yes -Correct Side, Site, Position Yes -Correct Procedure Yes -Procedure Performed Yes -Type of Procedure Debridement -Clinical Debridement Subcutaneous -Post Debridement Size (cm) - Length 0.5 -Post Debridement Size (cm) - Width 0.2 -Post Debridement Size (cm) - Depth 0.1 -Total Square Cm 0.10 -Wound/Ulcer Outcome Not Healed -Ulcer Cleansing Rinsed/ Irrigated with Saline -Foul Odor after Cleansing No -Bioengineered Tissue No -Bleeding Controlled with Pressure -Offloading No -Treatment Response Procedure Tolerated Well #11 R second toe distal -Time 11:33 -Correct Patient Yes -Correct Side, Site, Position Yes -Correct Procedure Yes -Post Debridement Size (cm) - Length 0 -Post Debridement Size (cm) - Width 0 -Post Debridement Size (cm) - Depth 0 -Total Square Cm 0 -Wound/Ulcer Outcome Converted [See Physician Procedure note for Specifics] Pain Scale: 0-10 Numeric [Pain] -Is Patient Pain Free? Yes Musculoskeletal: No Muscle Wasting Neurological: Cranial nerves II-XII grossly intact Psych/Mental Status: Normal Affect Debridement Note Post-Debridement Measurements/Treatment WC - Nurse 2 - General Ulcer CM Notes Start: 03/15/20 11:09 Freq: Status: Active Protocol: Activity Type Activity Date Activity User E-Sign Co-Sign Detail Recorded Client Recorded Date Recorded By Document 03/15/20 11:31 MW [id number] 03/15/20 11:37 MW 03/15/20 11:31 Wound Center Nurse 2 #12 R second toe lateral -Time 11:32 -Correct Patient Yes -Correct Side, Site, Position Yes -Correct Procedure Yes -Procedure Performed Yes -Type of Procedure Debridement -Clinical Debridement Subcutaneous -Post Debridement Size (cm) - Length 0.5 -Post Debridement Size (cm) - Width 0.2 -Post Debridement Size (cm) - Depth 0.1 -Total Square Cm 0.10 -Wound/Ulcer Outcome Not Healed -Ulcer Cleansing Rinsed/ Irrigated with Saline -Foul Odor after Cleansing No -Bioengineered Tissue No -Bleeding Controlled with Pressure -Offloading No -Treatment Response Procedure Tolerated Well #11 R second toe distal -Time 11:33 -Correct Patient Yes -Correct Side, Site, Position Yes -Correct Procedure Yes -Post Debridement Size (cm) - Length 0 -Post Debridement Size (cm) - Width 0 -Post Debridement Size (cm) - Depth 0 -Total Square Cm 0 -Wound/Ulcer Outcome Converted Pain Scale: 0-10 Numeric Is Patient Pain Free? Yes Wound debrided: Right second toe Type of Debridement: Excisional debridement Anesthesia Used: 4% Lidocaine Solution Depth: Down to and including healthy tissue, in the subcutaneous layer Percentage of wound debrided: 100 Instrument Used: 3mm curette Tissue Removed: Slough and devitalized tissue Severity: Fat Layer Exposed Amount of bleeding with debridement: Mild Bleeding Controlled with: Pressure Patient tolerated procedure well Assessment/Plan Active Problems Pressure ulcer of toe, stage 2 (Acute) Lower extremity neuropathy (Acute) PVD (peripheral vascular disease) (Chronic) Assessment: Same as above. Plan: Debridement done as documented above. Procedure was well-tolerated. Improving. Continue Fibracol daily. Gauze and tape over top. He was advised to establish with a poultry husbandry worker due to his chronic hammertoes and deformities. Referred to the foot and ankle clinic. Continue compression stockings and leg elevation. His questions were answered and he was advised to call with any further questions or concerns. Follow-up in 2 weeks. This note was generated with [employer] dictation software. It may contain incorrect words, spelling, and punctuation that were not noted in checking the note before signing. [id number]: [id number] Caterina subq tissue 20 sq cm/<
[2020-03-29 11:25] VITALS: BP 144/82; PULSE 88; RESP 16; TEMP 36.8; BMI 40.1
--- NOTE | 2020-03-29 12:17 | PN.PCM_ITS ---
(1) Pressure ulcer of toe, stage 2 Status: Acute Current Visit: Yes Qualifiers: Code(s): L89.892 - Pressure ulcer of other site, stage 2 (2) Lower extremity neuropathy Status: Acute Current Visit: Yes Code(s): G57.90 - Unspecified mononeuropathy of unspecified lower limb (3) PVD (peripheral vascular disease) Status: Chronic Current Visit: Yes Code(s): I73.9 - Peripheral vascular disease, unspecified Type of Wound Date of Service: 03/29/20 Chief Complaint: Right Toe Ulcer History of Wound: Mr. Ferro presents with right second toe ulcer. He reports initial blistering after putting on his stockings too tight per patient. Subsequently noted ulceration. Has not applied anything to it. Denies fever, chills or feeling of unwell. Progress of Wound: Improving. No new concerns at this time. - Physical Exam Vital Signs Temp Pulse Resp BP 98.3 F 88 16 144/82 H 03/29/20 11:25 03/29/20 11:25 03/29/20 11:25 03/29/20 11:25 General: Alert, Oriented x3, Cooperative, No apparent distress HEENT: Atraumatic, Normocephalic Oral: Moist Mucosa Neck: Supple Lungs: Normal air movement Abdomen: Non Tender, Obese Extremities: No cyanosis Skin: Ulcer/ Wound Wound Measurements and Assessment WC - Nurse 1 - General Ulcer Measurement Start: 03/15/20 11:09 Freq: Status: Active Protocol: Activity Type Activity Date Activity User E-Sign Co-Sign Detail Recorded Client Recorded Date Recorded By Document 03/29/20 11:25 [id number] 03/29/20 11:28 03/29/20 11:25 Wound Center Nurse 1 [Ulcer Assessment] #12 R second toe lateral -Combined with other wound No -Current Size (cm) - Length 0.2 -Current Size (cm) - Width 0.2 -Current Size (cm) - Depth 0.2 -Total Square Cm 0.04 -Photo Taken No -Epithelialization Medium 34-66% -Tunneling No -Undermining/Tunneling No -Circular Undermining No -Exudate Amt None Present -Wound Margin Flat & Intact -Granulation Amt Large (67-100%) -Granulation Quality Red -Slough/Fibrin Yes -Necrosis Amt Small (1-33%) -Necrotic Tissue Type Adherent Slough -Structure Exposed N/A -Texture (Talisha-wound Skin Appearance) Assessed,Callus -Moisture (Talisha-wound Skin Appearance Assessed,Dry/ ) Scaly -Color (Talisha-wound Skin Appearance) Assessed -Temperature (Talisha-wound Skin No Abnormality Appearance) (Pt Warm) -Tenderness on Palpation (Talisha-wound No Skin Appearance) -Ulcer Cleansing Rinsed/ Irrigated with Saline -Foul Odor after Cleansing No -Anesthetic Used 4% Lidocaine Solution [Edema Assessment] -Lower Limb Edema Present No WC - Nurse 2 - General Ulcer CM Notes Start: 03/15/20 11:09 Freq: Status: Active Protocol: Activity Type Activity Date Activity User E-Sign Co-Sign Detail Recorded Client Recorded Date Recorded By Document 03/29/20 11:52 PL [id number] 03/29/20 11:59 PL 03/29/20 11:52 Wound Center Nurse 2 [Procedure/Treatment] #12 R second toe lateral -Time 11:46 -Correct Patient Yes -Correct Side, Site, Position Yes -Correct Procedure Yes -Procedure Performed Yes -Type of Procedure Debridement -Clinical Debridement Subcutaneous -Post Debridement Size (cm) - Length 0.3 -Post Debridement Size (cm) - Width 0.2 -Post Debridement Size (cm) - Depth 0.1 -Total Square Cm 0.06 -Wound/Ulcer Outcome Not Healed -Ulcer Cleansing Rinsed/ Irrigated with Saline -Foul Odor after Cleansing No -Bleeding Controlled with Pressure -Treatment Response Procedure Tolerated Well [See Physician Procedure note for Specifics] Pain Scale: 0-10 Numeric [Pain] -Is Patient Pain Free? Yes Musculoskeletal: No Muscle Wasting Neurological: Cranial nerves II-XII grossly intact Psych/Mental Status: Normal Affect Debridement Note Post-Debridement Measurements/Treatment WC - Nurse 2 - General Ulcer CM Notes Start: 03/15/20 11:09 Freq: Status: Active Protocol: Activity Type Activity Date Activity User E-Sign Co-Sign Detail Recorded Client Recorded Date Recorded By Document 03/15/20 11:31 MW [id number] 03/15/20 11:37 MW Document 03/29/20 11:52 PL [id number] 03/29/20 11:59 PL 03/15/20 03/29/20 11:31 11:52 Wound Center Nurse 2 #12 R second toe lateral -Time 11:32 11:46 -Correct Patient Yes Yes -Correct Side, Site, Position Yes Yes -Correct Procedure Yes Yes -Procedure Performed Yes Yes -Type of Procedure Debridement Debridement -Clinical Debridement Subcutaneous Subcutaneous -Post Debridement Size (cm) - Length 0.5 0.3 -Post Debridement Size (cm) - Width 0.2 0.2 -Post Debridement Size (cm) - Depth 0.1 0.1 -Total Square Cm 0.10 0.06 -Wound/Ulcer Outcome Not Healed Not Healed -Ulcer Cleansing Rinsed/ Rinsed/ Irrigated with Irrigated with Saline Saline -Foul Odor after Cleansing No No -Bioengineered Tissue No -Bleeding Controlled with Pressure Pressure -Offloading No -Treatment Response Procedure Procedure Tolerated Well Tolerated Well #11 R second toe distal -Time 11:33 -Correct Patient Yes -Correct Side, Site, Position Yes -Correct Procedure Yes -Post Debridement Size (cm) - Length 0 -Post Debridement Size (cm) - Width 0 -Post Debridement Size (cm) - Depth 0 -Total Square Cm 0 -Wound/Ulcer Outcome Converted Pain Scale: 0-10 Numeric Is Patient Pain Free? Yes Yes Wound debrided: Right second toe Type of Debridement: Excisional debridement Anesthesia Used: 4% Lidocaine Solution Depth: Down to and including healthy tissue, in the subcutaneous layer Percentage of wound debrided: 100 Instrument Used: 3mm curette Tissue Removed: Slough and devitalized tissue Severity: Fat Layer Exposed Amount of bleeding with debridement: Mild Bleeding Controlled with: Pressure Patient tolerated procedure well Assessment/Plan Active Problems Pressure ulcer of toe, stage 2 (Acute) Lower extremity neuropathy (Acute) PVD (peripheral vascular disease) (Chronic) Assessment: Same as above. Plan: Debridement done as documented above. Procedure was well-tolerated. Improving. Continue Fibracol daily. Gauze and tape over top. He was advised to establish with a blood bank technician due to his chronic hammertoes and deformities. Referred to the foot and ankle clinic. He is yet to contact them. Continue compression stockings and leg elevation. His questions were answered and he was advised to call with any further questions or concerns. Follow-up in 1 week. This note was generated with [employer] software. It may contain incorrect words, spelling, and punctuation that were not noted in checking the note before signing. [id number]: [id number] Caterina subq tissue 20 sq cm/<
[2020-04-05 14:38] VITALS: BP 127/82; PULSE 84; RESP 18; TEMP 36.8; BMI 40.1
[2020-04-12 11:43] VITALS: BP 147/85; PULSE 73; RESP 16; TEMP 36.4; BMI 40.1
--- NOTE | 2020-04-12 12:33 | PCM.WC.PN ---
(1) Pressure ulcer of toe, stage 2 Status: Acute Current Visit: Yes Qualifiers: Code(s): L89.892 - Pressure ulcer of other site, stage 2 (2) Lower extremity neuropathy Status: Acute Current Visit: Yes Code(s): G57.90 - Unspecified mononeuropathy of unspecified lower limb (3) PVD (peripheral vascular disease) Status: Chronic Current Visit: Yes Code(s): I73.9 - Peripheral vascular disease, unspecified Type of Wound Date of Service: 04/12/20 Chief Complaint: Right Toe Ulcer History of Wound: Mr. Ferro presents with right second toe ulcer. He reports initial blistering after putting on his stockings too tight per patient. Subsequently noted ulceration. Has not applied anything to it. Denies fever, chills or feeling of unwell. Progress of Wound: Stable, No new concerns at this time. - Physical Exam Vital Signs Temp Pulse Resp BP 97.5 F L 73 16 147/85 H 04/12/20 11:43 04/12/20 11:43 04/12/20 11:43 04/12/20 11:43 General: Alert, Oriented x3, Cooperative, No apparent distress HEENT: Atraumatic, Normocephalic Oral: Moist Mucosa Neck: Supple Lungs: Normal air movement Abdomen: Non Tender, Obese Extremities: No cyanosis Skin: Ulcer/ Wound Wound Measurements and Assessment WC - Nurse 1 - General Ulcer Measurement Start: 03/15/20 11:09 Freq: Status: Active Protocol: Activity Type Activity Date Activity User E-Sign Co-Sign Detail Recorded Client Recorded Date Recorded By Document 04/12/20 11:43 [facility] [id number] 04/12/20 11:48 [facility] 04/12/20 11:43 Wound Center Nurse 1 [Ulcer Assessment] #12 R second toe lateral -Combined with other wound No -Current Size (cm) - Length 0.2 -Current Size (cm) - Width 0.1 -Current Size (cm) - Depth 0.3 -Total Square Cm 0.02 -Photo Taken No -Epithelialization None Present -Tunneling No -Undermining/Tunneling No -Circular Undermining Yes -Exudate Amt Small -Exudate Type Serosanguineous -Wound Margin Distinct, Outline Attached -Granulation Amt Large (67-100%) -Granulation Quality Red -Slough/Fibrin No -Necrosis Amt None Present (0 %) -Texture (Talisha-wound Skin Appearance) Assessed,Callus ,Scarring -Moisture (Talisha-wound Skin Appearance Assessed,Dry/ ) Scaly -Color (Talisha-wound Skin Appearance) Assessed -Temperature (Talisha-wound Skin No Abnormality Appearance) (Pt Warm) -Tenderness on Palpation (Talisha-wound No Skin Appearance) -Ulcer Cleansing Rinsed/ Irrigated with Saline -Foul Odor after Cleansing No -Anesthetic Used 5% Lidocaine Gel - Nurse 2 - General Ulcer CM Notes Start: 03/15/20 11:09 Freq: Status: Active Protocol: Activity Type Activity Date Activity User E-Sign Co-Sign Detail Recorded Client Recorded Date Recorded By Document 04/12/20 11:57 MW [id number] 04/12/20 12:00 MW 04/12/20 11:57 Wound Center Nurse 2 [Procedure/Treatment] -Time 11:58 -Correct Patient Yes -Correct Side, Site, Position Yes -Correct Procedure Yes -Procedure Performed Yes -Type of Procedure Debridement -Clinical Debridement Subcutaneous -Post Debridement Size (cm) - Length 0.3 -Post Debridement Size (cm) - Width 0.2 -Post Debridement Size (cm) - Depth 0.1 -Total Square (cm) 0.06 -Wound/Ulcer Outcome Not Healed -Ulcer Cleansing Rinsed/ Irrigated with Saline -Foul Odor after Cleansing No -Bioengineered Tissue No -Bleeding Controlled with Pressure -Offloading No -Treatment Response Procedure Tolerated Well [See Physician Procedure note for Specifics] Pain Scale: 0-10 Numeric [Pain] -Is Patient Pain Free? Yes Musculoskeletal: No Muscle Wasting Neurological: Cranial nerves II-XII grossly intact Psych/Mental Status: Normal Affect Debridement Note Post-Debridement Measurements/Treatment WC - Nurse 2 - General Ulcer CM Notes Start: 03/15/20 11:09 Freq: Status: Active Protocol: Activity Type Activity Date Activity User E-Sign Co-Sign Detail Recorded Client Recorded Date Recorded By Document 03/15/20 11:31 MW [id number] 03/15/20 11:37 MW Document 03/29/20 11:52 PL [id number] 03/29/20 11:59 PL Document 04/12/20 11:57 MW [id number] 04/12/20 12:00 MW 03/15/20 03/29/20 04/12/20 11:31 11:52 11:57 Wound Center Nurse 2 #12 R second toe lateral -Time 11:32 11:46 11:58 -Correct Patient Yes Yes Yes -Correct Side, Site, Position Yes Yes Yes -Correct Procedure Yes Yes Yes -Procedure Performed Yes Yes Yes -Type of Procedure Debridement Debridement Debridement -Clinical Debridement Subcutaneous Subcutaneous Subcutaneous -Post Debridement Size (cm) - Length 0.5 0.3 0.3 -Post Debridement Size (cm) - Width 0.2 0.2 0.2 -Post Debridement Size (cm) - Depth 0.1 0.1 0.1 -Total Square (cm) 0.10 0.06 0.06 -Wound/Ulcer Outcome Not Healed Not Healed Not Healed -Ulcer Cleansing Rinsed/ Rinsed/ Rinsed/ Irrigated with Irrigated with Irrigated with Saline Saline Saline -Foul Odor after Cleansing No No No -Bioengineered Tissue No No -Bleeding Controlled with Pressure Pressure Pressure -Offloading No No -Treatment Response Procedure Procedure Procedure Tolerated Well Tolerated Well Tolerated Well #11 R second toe distal -Time 11:33 -Correct Patient Yes -Correct Side, Site, Position Yes -Correct Procedure Yes -Post Debridement Size (cm) - Length 0 -Post Debridement Size (cm) - Width 0 -Post Debridement Size (cm) - Depth 0 -Total Square (cm) 0 -Wound/Ulcer Outcome Converted Pain Scale: 0-10 Numeric Is Patient Pain Free? Yes Yes Yes Wound debrided: Right second toe Type of Debridement: Excisional debridement Anesthesia Used: 4% Lidocaine Solution Depth: Down to and including healthy tissue, in the subcutaneous layer Percentage of wound debrided: 100 Instrument Used: 5mm curette Tissue Removed: Slough and devitalized tissue Severity: Fat Layer Exposed Amount of bleeding with debridement: Mild Bleeding Controlled with: Pressure Patient tolerated procedure well Assessment/Plan Active Problems Pressure ulcer of toe, stage 2 (Acute) Lower extremity neuropathy (Acute) PVD (peripheral vascular disease) (Chronic) Assessment: Same as above. Plan: Debridement done as documented above. Procedure was well-tolerated. Stable. Continue Fibracol daily. Gauze and tape over top. He was advised to establish with a registered diet technician due to his chronic hammertoes and deformities. Referred to the foot and ankle clinic. He has some bills to settle before being seen. He will also not be seen at an [facility] practice due to several missed appointments in the past. Continue compression stockings and leg elevation. His questions were answered and he was advised to call with any further questions or concerns. Follow-up in 1 week. This note was generated with [employer] dictation software. It may contain incorrect words, spelling, and punctuation that were not noted in checking the note before signing. [id number]: [id number] Caterina subq tissue 20 sq cm/<
== END 2020-04-13 23:59 ==
LOC: WC 11:30
PROVIDERS: Visit Provider Internal Medicine
DX: L89.892 Pressure ulcer of other site, stage 2 (principal); I73.9 Peripheral vascular disease, unspecified; G57.90 Unspecified mononeuropathy of unspecified lower limb
CPT/HCPCS: 11042; 99213; G0463

== ENCOUNTER 2020-04-19 08:13 | Outpatient (RCR) | payer MEDICARE, SELFPAY ==
[2020-04-14 00:34] VITALS: BP 147/85; PULSE 73; RESP 16; TEMP 36.4
== END 2020-05-14 23:59 ==
LOC: WC 08:13
PROVIDERS: Visit Provider Internal Medicine
DX: Z00.00 Encounter for general adult medical examination without abnormal findings (principal)

== ENCOUNTER 2020-05-03 11:18 | Outpatient (RCR) | payer MEDICARE, SELFPAY ==
[2020-05-03 11:40] VITALS: BP 154/82; PULSE 83; RESP 18; TEMP 36.2; BMI 40.1
--- NOTE | 2020-05-03 13:18 | PCM.WC.PN ---
(1) Lower extremity neuropathy Status: Acute Current Visit: Yes Code(s): G57.90 - Unspecified mononeuropathy of unspecified lower limb (2) Other hammer toe(s) (acquired), right foot Status: Acute Current Visit: Yes Code(s): M20.41 - Other hammer toe(s) (acquired), right foot (3) Pressure ulcer of toe, stage 2 Status: Acute Current Visit: Yes Qualifiers: Code(s): L89.892 - Pressure ulcer of other site, stage 2 Type of Wound Date of Service: 05/03/20 Chief Complaint: Right Toe Ulcer History of Wound: Mr. Ferro presents with right second toe ulcer. He reports initial blistering after putting on his stockings too tight per patient. Subsequently noted ulceration. Has not applied anything to it. Denies fever, chills or feeling of unwell. Progress of Wound: [place] area Left. No new concerns at this time. Yet to follow-up with podiatry. - Physical Exam Vital Signs Temp Pulse Resp BP 97.2 F L 83 18 154/82 H 05/03/20 11:40 05/03/20 11:40 05/03/20 11:40 05/03/20 11:40 General: Alert, Oriented x3, Cooperative, No apparent distress HEENT: Atraumatic, Normocephalic Oral: Moist Mucosa Neck: Supple Lungs: Normal air movement Abdomen: Non Tender, Obese Skin: Ulcer/ Wound Wound Measurements and Assessment WC - Nurse 1 - General Ulcer Measurement Start: 05/03/20 11:40 Freq: Status: Active Protocol: Activity Type Activity Date Activity User E-Sign Co-Sign Detail Recorded Client Recorded Date Recorded By Document 05/03/20 11:40 WV [id number] 05/03/20 11:46 WV 05/03/20 11:40 Wound Center Nurse 1 [Ulcer Assessment] #12 R second toe lateral -Current Size (cm) - Length 0.1 -Current Size (cm) - Width 0.1 -Current Size (cm) - Depth 0.1 -Total Square Cm 0.01 -Exudate Amt None Present -Wound Margin Thickened -Granulation Amt None Present (0 %) -Slough/Fibrin No -Texture (Talisha-wound Skin Appearance) Assessed,Callus -Moisture (Talisha-wound Skin Appearance Assessed ) -Color (Talisha-wound Skin Appearance) Assessed -Temperature (Talisha-wound Skin No Abnormality Appearance) (Pt Warm) -Tenderness on Palpation (Talisha-wound No Skin Appearance) -Ulcer Cleansing Rinsed/ Irrigated with Saline -Foul Odor after Cleansing No -Anesthetic Used 4% Lidocaine Solution [Edema Assessment] -Lower Limb Edema Present NA - Nurse 2 - General Ulcer CM Notes Start: 05/03/20 11:40 Freq: Status: Active Protocol: Activity Type Activity Date Activity User E-Sign Co-Sign Detail Recorded Client Recorded Date Recorded By Document 05/03/20 12:05 MW [id number] 05/03/20 12:06 MW 05/03/20 12:05 Wound Center Nurse 2 [Procedure/Treatment] #12 R second toe lateral -Time 12:05 -Correct Patient Yes -Correct Side, Site, Position Yes -Correct Procedure Yes -Procedure Performed No -Tunneling No -Undermining/Tunneling No -Circular Undermining No -Wound/Ulcer Outcome Not Healed -Ulcer Cleansing Not Cleansed -Foul Odor after Cleansing No -Bioengineered Tissue No -Bleeding Controlled with NA -Offloading No [See Physician Procedure note for Specifics] Pain Scale: 0-10 Numeric [Pain] -Is Patient Pain Free? Yes - Nurse 3 - General Ulcer D/C NN Start: 05/03/20 11:40 Freq: Status: Active Protocol: Activity Type Activity Date Activity User E-Sign Co-Sign Detail Recorded Client Recorded Date Recorded By Document 05/03/20 12:10 BM [id number] 05/03/20 12:11 [facility] 05/03/20 12:10 Wound Care Nurse 3 [Wound Dressing] #12 R second toe lateral -Ulcer Cleansing Rinsed/ Irrigated with Saline -Foul Odor after Cleansing No -Primary Dressing Applied Fibracol Plus 4x4,Other -Other Dressing adaptic -Primary Dressing Covered/Secured Dry Gauze, with Secured with Tape -Fibracol Plus 4x4 0 [Post Procedure Tolerated] -Treatment Response Procedure Tolerated Well Pain Scale: 0-10 Numeric [Pain] -Is Patient Pain Free? Yes - Visit Discharge [Visit Discharge Information] -Discharge Condition Stable -Ambulatory Status Ambulatory -Transportation Private Auto -Notes: drsg applied per r jaden rn Musculoskeletal: No Muscle Wasting Neurological: Cranial nerves II-XII grossly intact Psych/Mental Status: Normal Affect Debridement Note Post-Debridement Measurements/Treatment - Nurse 2 - General Ulcer CM Notes Start: 05/03/20 11:40 Freq: Status: Active Protocol: Activity Type Activity Date Activity User E-Sign Co-Sign Detail Recorded Client Recorded Date Recorded By Document 05/03/20 12:05 MW [id number] 05/03/20 12:06 MW 05/03/20 12:05 Wound Center Nurse 2 #12 R second toe lateral -Time 12:05 -Correct Patient Yes -Correct Side, Site, Position Yes -Correct Procedure Yes -Procedure Performed No -Tunneling No -Undermining/Tunneling No -Circular Undermining No -Wound/Ulcer Outcome Not Healed -Ulcer Cleansing Not Cleansed -Foul Odor after Cleansing No -Bioengineered Tissue No -Bleeding Controlled with NA -Offloading No Pain Scale: 0-10 Numeric Is Patient Pain Free? Yes - Nurse 3 - General Ulcer D/C NN Start: 05/03/20 11:40 Freq: Status: Active Protocol: Activity Type Activity Date Activity User E-Sign Co-Sign Detail Recorded Client Recorded Date Recorded By Document 05/03/20 12:10 [facility] [id number] 05/03/20 12:11 [facility] 05/03/20 12:10 Wound Care Nurse 3 #12 R second toe lateral -Ulcer Cleansing Rinsed/ Irrigated with Saline -Foul Odor after Cleansing No -Primary Dressing Applied Fibracol Plus 4x4,Other -Other Dressing adaptic -Primary Dressing Covered/Secured with Dry Gauze, Secured with Tape -Fibracol Plus 4x4 0 Treatment Response Procedure Tolerated Well Pain Scale: 0-10 Numeric Is Patient Pain Free? Yes WC - Visit Discharge Discharge Condition Stable Ambulatory Status Ambulatory Transportation Private Auto Notes: drsg applied per r jaden rn No debridement was completed today Assessment/Plan Active Problems Pressure ulcer of toe, stage 2 (Acute) Lower extremity neuropathy (Acute) Other hammer toe(s) (acquired), right foot (Acute) Assessment: Same as above. Plan: No debridement completed today. Very minimal area left. Continue Fibracol daily. Gauze and tape over top. He was advised to establish with a quilting machine operator due to his chronic hammertoes and deformities. Referred to the foot and ankle clinic. He has some bills to settle before being seen. He will also not be seen at an [place] practice due to several missed appointments in the past. Continue compression stockings and leg elevation. His questions were answered and he was advised to call with any further questions or concerns. Follow-up in 1 week. This note was generated with [employer] dictation software. It may contain incorrect words, spelling, and punctuation that were not noted in checking the note before signing. Office Visits / Consults: [id number] OV L3 Est
== END 2020-05-14 23:59 ==
LOC: WC 11:18
PROVIDERS: Visit Provider Internal Medicine
DX: L89.892 Pressure ulcer of other site, stage 2 (principal); M20.41 Other hammer toe(s) (acquired), right foot; G57.90 Unspecified mononeuropathy of unspecified lower limb
CPT/HCPCS: 99213; G0463

== ENCOUNTER 2020-06-07 11:15 | Outpatient (RCR) | payer MEDICARE, SELFPAY ==
[2020-05-15 00:49] VITALS: BP 154/82; PULSE 83; RESP 18; TEMP 36.2
[2020-05-17 11:33] VITALS: BP 132/76; PULSE 81; RESP 18; TEMP 36.1; BMI 40.1
--- NOTE | 2020-05-17 12:32 | PN.PCM_ITS ---
(1) Other hammer toe(s) (acquired), right foot Status: Acute Current Visit: Yes Code(s): M20.41 - Other hammer toe(s) (acquired), right foot (2) Pressure ulcer of toe, stage 2 Status: Chronic Current Visit: Yes Qualifiers: Laterality: right Code(s): L89.892 - Pressure ulcer of other site, stage 2 (3) Lower extremity neuropathy Status: Chronic Current Visit: Yes Code(s): G57.90 - Unspecified mononeuropathy of unspecified lower limb Type of Wound Date of Service: 05/17/20 Chief Complaint: Right Toe Ulcer History of Wound: Mr. Ferro presents with right second toe ulcer. He reports initial blistering after putting on his stockings too tight per patient. Subsequently noted ulceration. Has not applied anything to it. Denies fever, chills or feeling of unwell. Progress of Wound: Worsened. Still not followed with podiatry. Not properly offloading. - Physical Exam Vital Signs Temp Pulse Resp BP 97 F L 81 18 132/76 H 05/17/20 11:33 05/17/20 11:33 05/17/20 11:33 05/17/20 11:33 General: Alert, Oriented x3, Cooperative, No apparent distress HEENT: Atraumatic, Normocephalic Oral: Moist Mucosa Neck: Supple Lungs: Normal air movement Extremities: No cyanosis Skin: Ulcer/ Wound Wound Measurements and Assessment WC - Nurse 1 - General Ulcer Measurement Start: 05/17/20 11:32 Freq: Status: Active Protocol: Activity Type Activity Date Activity User E-Sign Co-Sign Detail Recorded Client Recorded Date Recorded By Document 05/17/20 11:33 [id number] 05/17/20 11:38 RB 05/17/20 11:33 Wound Center Nurse 1 [Ulcer Assessment] #12 R second toe lateral -Combined with other wound No -Current Size (cm) - Length 0.7 -Current Size (cm) - Width 0.2 -Current Size (cm) - Depth 0.1 -Total Square Cm 0.14 -Tunneling No -Undermining/Tunneling No -Circular Undermining No -Exudate Amt Small -Exudate Type Serosanguineous -Wound Margin Thickened -Granulation Amt Medium (34-66%) -Granulation Quality [place] -Slough/Fibrin Yes -Necrosis Amt Small (1-33%) -Necrotic Tissue Type Adherent Slough -Structure Exposed N/A -Texture (Talisha-wound Skin Appearance) Assessed -Moisture (Talisha-wound Skin Appearance Assessed ) -Color (Talisha-wound Skin Appearance) Assessed -Temperature (Talisha-wound Skin No Abnormality Appearance) (Pt Warm) -Ulcer Cleansing Wound Cleanser -Foul Odor after Cleansing No -Anesthetic Used 4% Lidocaine Solution HEATHER - Nurse 2 - General Ulcer CM Notes Start: 05/17/20 11:32 Freq: Status: Active Protocol: Activity Type Activity Date Activity User E-Sign Co-Sign Detail Recorded Client Recorded Date Recorded By Document 05/17/20 11:45 MW [id number] 05/17/20 11:47 MW 05/17/20 11:45 Wound Center Nurse 2 [Procedure/Treatment] -Time 11:45 -Correct Patient Yes -Correct Side, Site, Position Yes -Correct Procedure Yes -Procedure Performed Yes -Type of Procedure Debridement -Clinical Debridement Subcutaneous -Tissue Removed Subcutaneous -Post Debridement (cm) - Length 0.8 -Post Debridement (cm) - Width 0.2 -Post Debridement (cm) - Depth 0.1 -Total Square (Post) (cm) 0.16 -Area of Debridement (cm) - Length 0.8 -Area of Debridement (cm) - Width 0.2 -Total Square (Area) (cm) 0.16 -Tunneling No -Undermining/Tunneling No -Circular Undermining No -Wound/Ulcer Outcome Not Healed -Ulcer Cleansing Rinsed/ Irrigated with Saline -Foul Odor after Cleansing No -Bioengineered Tissue No -Bleeding Controlled with Pressure -Offloading No -Treatment Response Procedure Tolerated Well -Debridement - Subq, 1st 20sq cm Yes [See Physician Procedure note for Specifics] Pain Scale: 0-10 Numeric [Pain] -Is Patient Pain Free? Yes HEATHER - Nurse 3 - General Ulcer D/C NN Start: 05/17/20 11:32 Freq: Status: Active Protocol: Activity Type Activity Date Activity User E-Sign Co-Sign Detail Recorded Client Recorded Date Recorded By Document 05/17/20 11:49 MW [id number] 05/17/20 11:50 MW 05/17/20 11:49 Wound Care Nurse 3 [Wound Dressing] #12 R second toe lateral -Ulcer Cleansing Rinsed/ Irrigated with Saline -Foul Odor after Cleansing No -Negative Pressure Wound Therapy N/A -Primary Dressing Applied NonAdherent Contact Layer, Promogran -Primary Dressing Covered/Secured Dry Gauze, with Secured with Tape -Promogran 1 [Post Procedure Tolerated] -Treatment Response Procedure Tolerated Well Pain Scale: 0-10 Numeric [Pain] -Is Patient Pain Free? Yes Teaching: Wound Center [Wound Center Education] (Items with an * have Printed Materials Available- Please identify what is given to patient under the Teaching materials given to patient and caregiver Section. Dressing Your Wound -Person Taught Patient -Teaching Method Discussion, Demonstration -Response to teaching Verbalize understanding WC - Visit Discharge [Visit Discharge Information] -Discharge Condition Stable -Ambulatory Status Ambulatory -Transportation Private Auto -Accompanied by SELF -Medication Reconcilliation completed No & provided to patient/care provider -Clinical Summary of Care Provided Yes Musculoskeletal: No Muscle Wasting Neurological: Cranial nerves II-XII grossly intact Psych/Mental Status: Normal Affect Debridement Note Post-Debridement Measurements/Treatment WC - Nurse 2 - General Ulcer CM Notes Start: 05/17/20 11:32 Freq: Status: Active Protocol: Activity Type Activity Date Activity User E-Sign Co-Sign Detail Recorded Client Recorded Date Recorded By Document 05/17/20 11:45 MW [id number] 05/17/20 11:47 MW 05/17/20 11:45 Wound Center Nurse 2 #12 R second toe lateral -Time 11:45 -Correct Patient Yes -Correct Side, Site, Position Yes -Correct Procedure Yes -Procedure Performed Yes -Type of Procedure Debridement -Clinical Debridement Subcutaneous -Tissue Removed Subcutaneous -Post Debridement (cm) - Length 0.8 -Post Debridement (cm) - Width 0.2 -Post Debridement (cm) - Depth 0.1 -Total Square (Post) (cm) 0.16 -Area of Debridement (cm) - Length 0.8 -Area of Debridement (cm) - Width 0.2 -Total Square (Area) (cm) 0.16 -Tunneling No -Undermining/Tunneling No -Circular Undermining No -Wound/Ulcer Outcome Not Healed -Ulcer Cleansing Rinsed/ Irrigated with Saline -Foul Odor after Cleansing No -Bioengineered Tissue No -Bleeding Controlled with Pressure -Offloading No -Treatment Response Procedure Tolerated Well -Debridement - Subq, 1st 20sq cm Yes Pain Scale: 0-10 Numeric Is Patient Pain Free? Yes - Nurse 3 - General Ulcer D/C NN Start: 05/17/20 11:32 Freq: Status: Active Protocol: Activity Type Activity Date Activity User E-Sign Co-Sign Detail Recorded Client Recorded Date Recorded By Document 05/17/20 11:49 MW [id number] 05/17/20 11:50 MW 05/17/20 11:49 Wound Care Nurse 3 #12 R second toe lateral -Ulcer Cleansing Rinsed/ Irrigated with Saline -Foul Odor after Cleansing No -Negative Pressure Wound Therapy N/A -Primary Dressing Applied NonAdherent Contact Layer, Promogran -Primary Dressing Covered/Secured with Dry Gauze, Secured with Tape -Promogran 1 Treatment Response Procedure Tolerated Well Pain Scale: 0-10 Numeric Is Patient Pain Free? Yes Teaching: Wound Center Dressing Your Wound -Person Taught Patient -Teaching Method Discussion, Demonstration -Response to teaching Verbalize understanding WC - Visit Discharge Discharge Condition Stable Ambulatory Status Ambulatory Transportation Private Auto Accompanied by SELF Medication Reconcilliation completed & No provided to patient/care provider Clinical Summary of Care Provided Yes Wound debrided: Right second toe Type of Debridement: Excisional debridement Anesthesia Used: 4% Lidocaine Solution Depth: Down to and including healthy tissue, in the subcutaneous layer Percentage of wound debrided: 100 Instrument Used: 5mm curette Tissue Removed: Slough and devitalized tissue Severity: Fat Layer Exposed Amount of bleeding with debridement: Mild Bleeding Controlled with: Pressure Patient tolerated procedure well Assessment/Plan Active Problems Pressure ulcer of toe, stage 2 (Chronic) Lower extremity neuropathy (Chronic) Other hammer toe(s) (acquired), right foot (Acute) Assessment: Same as above. Plan: Worsened. I do not believe patient is offloading as he should. Continue Fibracol daily. Gauze and tape over top. He was again advised to establish with a track worker due to his chronic hammertoes and deformities. Referred to the foot and ankle clinic. He has some bills to settle before being seen. He will also not be seen at an [place] practice due to several missed appointments in the past. Continue compression stockings and leg elevation. His questions were answered and he was advised to call with any further questions or concerns. Follow-up in 1 week. This note was generated with [employer] software. It may contain incorrect words, spelling, and punctuation that were not noted in checking the note before signing. [id number]: [id number] Caterina subq tissue 20 sq cm/<
[2020-05-24 11:58] VITALS: BP 146/98; PULSE 80; RESP 18; TEMP 36.4; BMI 40.1
--- NOTE | 2020-05-24 12:49 | PCM.WC.PN ---
(1) Pressure ulcer of toe, stage 2 Status: Chronic Qualifiers: Laterality: right Code(s): L89.892 - Pressure ulcer of other site, stage 2 (2) Ulcer of right foot with fat layer exposed Status: Chronic Code(s): L97.512 - Non-pressure chronic ulcer of other part of right foot with fat layer exposed Type of Wound Date of Service: 05/24/20 Chief Complaint: Right Toe Ulcer History of Wound: Mr. Ferro presents with right second toe ulcer. He reports initial blistering after putting on his stockings too tight per patient. Subsequently noted ulceration. Has not applied anything to it. Denies fever, chills or feeling of unwell. Progress of Wound: Stable. Still not followed with podiatry. Not properly offloading. - Physical Exam Vital Signs Temp Pulse Resp BP 97.5 F L 80 18 146/98 H 05/24/20 11:58 05/24/20 11:58 05/24/20 11:58 05/24/20 11:58 General: Alert, Oriented x3 HEENT: Atraumatic Oral: Moist Mucosa Lungs: Normal air movement Cardiovascular: Regular rate Abdomen: Obese Extremities: Capillary Refill Less than 3 Seconds Skin: Ulcer/ Wound - Right second toe ulcer. Wound Measurements and Assessment WC - Nurse 1 - General Ulcer Measurement Start: 05/17/20 11:32 Freq: Status: Active Protocol: Activity Type Activity Date Activity User E-Sign Co-Sign Detail Recorded Client Recorded Date Recorded By Document 05/24/20 11:58 [id number] 05/24/20 12:00 RB 05/24/20 11:58 Wound Center Nurse 1 [Ulcer Assessment] #12 R second toe lateral -Combined with other wound No -Current Size (cm) - Length 0.1 -Current Size (cm) - Width 0.1 -Current Size (cm) - Depth 0.1 -Total Square Cm 0.01 -Tunneling No -Undermining/Tunneling No -Circular Undermining No -Exudate Amt Small -Exudate Type Serosanguineous -Wound Margin Flat & Intact -Granulation Amt Medium (34-66%) -Granulation Quality [place] -Slough/Fibrin Yes -Necrosis Amt Medium (34-66%) -Necrotic Tissue Type Adherent Slough -Structure Exposed N/A -Texture (Talisha-wound Skin Appearance) Assessed -Moisture (Talisha-wound Skin Appearance Assessed ) -Color (Talisha-wound Skin Appearance) Assessed -Temperature (Talisha-wound Skin No Abnormality Appearance) (Pt Warm) -Tenderness on Palpation (Talisha-wound No Skin Appearance) -Ulcer Cleansing Rinsed/ Irrigated with Saline -Foul Odor after Cleansing No -Anesthetic Used 5% Lidocaine Gel WC - Nurse 2 - General Ulcer CM Notes Start: 05/17/20 11:32 Freq: Status: Active Protocol: Activity Type Activity Date Activity User E-Sign Co-Sign Detail Recorded Client Recorded Date Recorded By Document 05/24/20 12:36 MW [id number] 05/24/20 12:41 MW 05/24/20 12:36 Wound Center Nurse 2 [Procedure/Treatment] -Time 12:37 -Correct Patient Yes -Correct Side, Site, Position Yes -Correct Procedure Yes -Procedure Performed Yes -Type of Procedure Debridement -Clinical Debridement Subcutaneous -Tissue Removed Subcutaneous -Post Debridement (cm) - Length 0.5 -Post Debridement (cm) - Width 0.2 -Post Debridement (cm) - Depth 0.1 -Total Square (Post) (cm) 0.10 -Area of Debridement (cm) - Length 0.5 -Area of Debridement (cm) - Width 0.2 -Total Square (Area) (cm) 0.10 -Tunneling No -Undermining/Tunneling No -Circular Undermining No -Wound/Ulcer Outcome Not Healed -Ulcer Cleansing Rinsed/ Irrigated with Saline -Foul Odor after Cleansing No -Bioengineered Tissue No -Bleeding Controlled with Pressure -Offloading No -Debridement - Subq, 1st 20sq cm Yes [See Physician Procedure note for Specifics] Pain Scale: 0-10 Numeric [Pain] -Is Patient Pain Free? Yes Musculoskeletal: No Tenderness to Palpation of Joints or Extremities Neurological: Cranial nerves II-XII grossly intact Psych/Mental Status: Normal Affect, Appropriate Debridement Note Post-Debridement Measurements/Treatment WC - Nurse 2 - General Ulcer CM Notes Start: 05/17/20 11:32 Freq: Status: Active Protocol: Activity Type Activity Date Activity User E-Sign Co-Sign Detail Recorded Client Recorded Date Recorded By Document 05/17/20 11:45 MW [id number] 05/17/20 11:47 MW Document 05/24/20 12:36 MW [id number] 05/24/20 12:41 MW 05/17/20 05/24/20 11:45 12:36 Wound Center Nurse 2 #12 R second toe lateral -Time 11:45 12:37 -Correct Patient Yes Yes -Correct Side, Site, Position Yes Yes -Correct Procedure Yes Yes -Procedure Performed Yes Yes -Type of Procedure Debridement Debridement -Clinical Debridement Subcutaneous Subcutaneous -Tissue Removed Subcutaneous Subcutaneous -Post Debridement (cm) - Length 0.8 0.5 -Post Debridement (cm) - Width 0.2 0.2 -Post Debridement (cm) - Depth 0.1 0.1 -Total Square (Post) (cm) 0.16 0.10 -Area of Debridement (cm) - Length 0.8 0.5 -Area of Debridement (cm) - Width 0.2 0.2 -Total Square (Area) (cm) 0.16 0.10 -Tunneling No No -Undermining/Tunneling No No -Circular Undermining No No -Wound/Ulcer Outcome Not Healed Not Healed -Ulcer Cleansing Rinsed/ Rinsed/ Irrigated with Irrigated with Saline Saline -Foul Odor after Cleansing No No -Bioengineered Tissue No No -Bleeding Controlled with Pressure Pressure -Offloading No No -Treatment Response Procedure Tolerated Well -Debridement - Subq, 1st 20sq cm Yes Yes Pain Scale: 0-10 Numeric Is Patient Pain Free? Yes Yes - Nurse 3 - General Ulcer D/C NN Start: 05/17/20 11:32 Freq: Status: Active Protocol: Activity Type Activity Date Activity User E-Sign Co-Sign Detail Recorded Client Recorded Date Recorded By Document 05/17/20 11:49 MW [id number] 05/17/20 11:50 MW 05/17/20 11:49 Wound Care Nurse 3 #12 R second toe lateral -Ulcer Cleansing Rinsed/ Irrigated with Saline -Foul Odor after Cleansing No -Negative Pressure Wound Therapy N/A -Primary Dressing Applied NonAdherent Contact Layer, Promogran -Primary Dressing Covered/Secured with Dry Gauze, Secured with Tape -Promogran 1 Treatment Response Procedure Tolerated Well Pain Scale: 0-10 Numeric Is Patient Pain Free? Yes Teaching: Wound Center Dressing Your Wound -Person Taught Patient -Teaching Method Discussion, Demonstration -Response to teaching Verbalize understanding WC - Visit Discharge Discharge Condition Stable Ambulatory Status Ambulatory Transportation Private Auto Accompanied by SELF Medication Reconcilliation completed & No provided to patient/care provider Clinical Summary of Care Provided Yes Wound debrided: second dorsal toe Laterality: Right Type of Debridement: Excisional debridement Anesthesia Used: 5% Lidocaine Gel Depth: Down to and including healthy tissue, in the subcutaneous layer Percentage of wound debrided: 100 Instrument Used: 3mm curette Tissue Removed: Subcutaneous tissue and slough Severity: Fat Layer Exposed Amount of bleeding with debridement: Mild Bleeding Controlled with: Pressure Patient tolerated procedure well Assessment/Plan Assessment: Same as above. Plan: Courtesy visit today. Subcutaneous debridement was performed. Patient tolerated the procedure well. Stop Fibracol and start Collagen hydrogel covered by adaptic daily. Gauze and tape over top. He was again advised to establish with a senior process analyst due to his chronic hammertoes and deformities. Referred to the foot and ankle clinic. He has some bills to settle before being seen. He will also not be seen at an [place] practice due to several missed appointments in the past. Continue compression stockings and leg elevation. His questions were answered and he was advised to call with any further questions or concerns. Follow-up in [address] Chapa. This note was generated with [employer] dictation software. It may contain incorrect words, spelling, and punctuation that were not noted in checking the note before signing. [id number]: [id number] Caterina subq tissue 20 sq cm/<
[2020-06-07 11:11] VITALS: BP 132/92; PULSE 98; RESP 18; TEMP 35.8; O2SAT 98; BMI 40.1
[2020-06-07 11:36] VITALS: BP 116/70; PULSE 99; RESP 16
--- NOTE | 2020-06-07 12:29 | PCM.WC.PN ---
(1) Pressure ulcer of toe, stage 2 Status: Chronic Current Visit: Yes Qualifiers: Laterality: right Code(s): L89.892 - Pressure ulcer of other site, stage 2 (2) Other hammer toe(s) (acquired), right foot Status: Acute Current Visit: Yes Code(s): M20.41 - Other hammer toe(s) (acquired), right foot (3) Lower extremity neuropathy Status: Chronic Current Visit: Yes Code(s): G57.90 - Unspecified mononeuropathy of unspecified lower limb Type of Wound Date of Service: 06/07/20 Chief Complaint: Right Toe Ulcer History of Wound: Mr. Ferro presents with right second toe ulcer. He reports initial blistering after putting on his stockings too tight per patient. Subsequently noted ulceration. Has not applied anything to it. Denies fever, chills or feeling of unwell. Progress of Wound: Stable. Still not followed with podiatry. Not properly offloading. - Physical Exam Vital Signs Temp Pulse Resp BP Pulse Ox 96.5 F L 99 16 116/70 98 06/07/20 11:11 06/07/20 11:36 06/07/20 11:36 06/07/20 11:36 06/07/20 11:11 General: Alert, Oriented x3, Cooperative, No apparent distress HEENT: Atraumatic, Normocephalic Oral: Moist Mucosa Neck: Supple Lungs: Normal air movement Abdomen: Non Tender, Obese Extremities: No cyanosis Skin: Ulcer/ Wound Wound Measurements and Assessment WC - Nurse 1 - General Ulcer Measurement Start: 05/17/20 11:32 Freq: Status: Active Protocol: Activity Type Activity Date Activity User E-Sign Co-Sign Detail Recorded Client Recorded Date Recorded By Document 06/07/20 11:11 NE [id number] 06/07/20 11:20 NE 06/07/20 11:11 Wound Center Nurse 1 [Ulcer Assessment] #12 R second toe lateral -Current Size (cm) - Length 0.9 -Current Size (cm) - Width 0.2 -Current Size (cm) - Depth 0.3 -Total Square Cm 0.18 -Exudate Amt Small -Exudate Type Sanguineous -Wound Margin Thickened -Granulation Amt Large (67-100%) -Granulation Quality Red -Texture (Talisha-wound Skin Appearance) Assessed,Callus -Moisture (Talisha-wound Skin Appearance Assessed ) -Color (Talisha-wound Skin Appearance) Assessed -Temperature (Talisha-wound Skin No Abnormality Appearance) (Pt Warm) -Tenderness on Palpation (Talisha-wound No Skin Appearance) -Ulcer Cleansing Rinsed/ Irrigated with Saline -Foul Odor after Cleansing No -Anesthetic Used 5% Lidocaine Gel [Edema Assessment] -Lower Limb Edema Present NA WC - Nurse 2 - General Ulcer CM Notes Start: 05/17/20 11:32 Freq: Status: Active Protocol: Activity Type Activity Date Activity User E-Sign Co-Sign Detail Recorded Client Recorded Date Recorded By Document 06/07/20 11:25 MW [id number] 06/07/20 11:27 MW 06/07/20 11:25 Wound Center Nurse 2 [Procedure/Treatment] #12 R second toe lateral -Time 11:26 -Correct Patient Yes -Correct Side, Site, Position Yes -Correct Procedure Yes -Procedure Performed Yes -Type of Procedure Debridement -Clinical Debridement Subcutaneous -Tissue Removed Subcutaneous -Post Debridement (cm) - Length 0.5 -Post Debridement (cm) - Width 0.1 -Post Debridement (cm) - Depth 0.1 -Total Square (Post) (cm) 0.05 -Area of Debridement (cm) - Length 0.5 -Area of Debridement (cm) - Width 0.1 -Total Square (Area) (cm) 0.05 -Tunneling No -Undermining/Tunneling No -Circular Undermining No -Wound/Ulcer Outcome Not Healed -Ulcer Cleansing Rinsed/ Irrigated with Saline -Foul Odor after Cleansing No -Bioengineered Tissue No -Bleeding Controlled with Pressure -Offloading No -Debridement - Subq, 1st 20sq cm Yes [See Physician Procedure note for Specifics] Pain Scale: 0-10 Numeric [Pain] -Is Patient Pain Free? Yes WC - Nurse 3 - General Ulcer D/C NN Start: 05/17/20 11:32 Freq: Status: Active Protocol: Activity Type Activity Date Activity User E-Sign Co-Sign Detail Recorded Client Recorded Date Recorded By Document 06/07/20 11:36 BMF [id number] 06/07/20 11:37 BMF 06/07/20 11:36 Wound Care Nurse 3 [Wound Dressing] #12 R second toe lateral -Ulcer Cleansing Rinsed/ Irrigated with Saline -Foul Odor after Cleansing No -Primary Dressing Applied NonAdherent Contact Layer, Promogran -Primary Dressing Covered/Secured Dry Gauze, with Secured with Tape -Promogran 1 [Post Procedure Tolerated] -Treatment Response Procedure Tolerated Well Vital Signs [Pulse] -Pulse Rate (60-100 beats/min) 99 -Pulse Location Monitor [Respirations] -Respiratory Rate (12-18 breaths/min) 16 -Respiratory rate source Observation -Oxygen Delivery Method Room Air [Blood Pressure] -Blood Pressure (90/60-120/80 mm Hg) 116/70 -Blood Pressure Mean (mm Hg) 85 -Source Monitor -Position Sitting -Blood Pressure Location Right Arm Pain Scale: 0-10 Numeric [Pain] -Is Patient Pain Free? Yes WC - Visit Discharge [Visit Discharge Information] -Discharge Condition Stable -Ambulatory Status Ambulatory,Cane -Transportation Private Auto Musculoskeletal: No Muscle Wasting Neurological: Cranial nerves II-XII grossly intact Psych/Mental Status: Normal Affect Debridement Note Post-Debridement Measurements/Treatment WC - Nurse 2 - General Ulcer CM Notes Start: 05/17/20 11:32 Freq: Status: Active Protocol: Activity Type Activity Date Activity User E-Sign Co-Sign Detail Recorded Client Recorded Date Recorded By Document 05/17/20 11:45 MW [id number] 05/17/20 11:47 MW Document 05/24/20 12:36 MW [id number] 05/24/20 12:41 MW Document 06/07/20 11:25 MW [id number] 06/07/20 11:27 MW 05/17/20 05/24/20 06/07/20 11:45 12:36 11:25 Wound Center Nurse 2 #12 R second toe lateral -Time 11:45 12:37 11:26 -Correct Patient Yes Yes Yes -Correct Side, Site, Position Yes Yes Yes -Correct Procedure Yes Yes Yes -Procedure Performed Yes Yes Yes -Type of Procedure Debridement Debridement Debridement -Clinical Debridement Subcutaneous Subcutaneous Subcutaneous -Tissue Removed Subcutaneous Subcutaneous Subcutaneous -Post Debridement (cm) - Length 0.8 0.5 0.5 -Post Debridement (cm) - Width 0.2 0.2 0.1 -Post Debridement (cm) - Depth 0.1 0.1 0.1 -Total Square (Post) (cm) 0.16 0.10 0.05 -Area of Debridement (cm) - Length 0.8 0.5 0.5 -Area of Debridement (cm) - Width 0.2 0.2 0.1 -Total Square (Area) (cm) 0.16 0.10 0.05 -Tunneling No No No -Undermining/Tunneling No No No -Circular Undermining No No No -Wound/Ulcer Outcome Not Healed Not Healed Not Healed -Ulcer Cleansing Rinsed/ Rinsed/ Rinsed/ Irrigated with Irrigated with Irrigated with Saline Saline Saline -Foul Odor after Cleansing No No No -Bioengineered Tissue No No No -Bleeding Controlled with Pressure Pressure Pressure -Offloading No No No -Treatment Response Procedure Tolerated Well -Debridement - Subq, 1st 20sq cm Yes Yes Yes Pain Scale: 0-10 Numeric Is Patient Pain Free? Yes Yes Yes WC - Nurse 3 - General Ulcer D/C NN Start: 05/17/20 11:32 Freq: Status: Active Protocol: Activity Type Activity Date Activity User E-Sign Co-Sign Detail Recorded Client Recorded Date Recorded By Document 05/17/20 11:49 MW [id number] 05/17/20 11:50 MW Document 05/24/20 12:56 MW [id number] 05/24/20 12:57 MW Document 06/07/20 11:36 BMF [id number] 06/07/20 11:37 BMF 05/17/20 05/24/20 06/07/20 11:49 12:56 11:36 Wound Care Nurse 3 #12 R second toe lateral -Ulcer Cleansing Rinsed/ Rinsed/ Rinsed/ Irrigated with Irrigated with Irrigated with Saline Saline Saline -Foul Odor after Cleansing No No No -Negative Pressure Wound Therapy N/A N/A -Primary Dressing Applied NonAdherent C Hydrogel ($), NonAdherent Contact Layer, NonAdherent Contact Layer, Promogran Contact Layer Promogran -Primary Dressing Covered/Secured with Dry Gauze, Dry Gauze, Dry Gauze, Secured with Secured with Secured with Tape Tape Tape -Promogran 1 1 Treatment Response Procedure Procedure Procedure Tolerated Well Tolerated Well Tolerated Well Pain Scale: 0-10 Numeric Is Patient Pain Free? Yes Yes Yes Vital Signs Pulse Rate (60-100 beats/min) 99 Pulse Location Monitor Respiratory Rate (12-18 breaths/min) 16 Respiratory rate source Observation Oxygen Delivery Method Room Air Blood Pressure (90/60-120/80 mm Hg) 116/70 Blood Pressure Mean (mm Hg) 85 Source Monitor Position Sitting Blood Pressure Location Right Arm Teaching: Wound Center Dressing Your Wound -Person Taught Patient Patient -Teaching Method Discussion, Discussion, Demonstration Demonstration -Response to teaching Verbalize Verbalize understanding understanding WC - Visit Discharge Discharge Condition Stable Stable Stable Ambulatory Status Ambulatory Ambulatory Ambulatory,Cane Transportation Private Auto Private Auto Private Auto Accompanied by SELF self Medication Reconcilliation completed & No No provided to patient/care provider Clinical Summary of Care Provided Yes Yes Wound debrided: Right second toe Wound Grade/Stage: Stage II Type of Debridement: Excisional debridement Anesthesia Used: 4% Lidocaine Solution Depth: Down to and including healthy tissue, in the subcutaneous layer Percentage of wound debrided: 100 Instrument Used: 3mm curette Tissue Removed: Slough and devitalized tissue Severity: Fat Layer Exposed Amount of bleeding with debridement: Mild Bleeding Controlled with: Pressure Patient tolerated procedure well Assessment/Plan Active Problems Pressure ulcer of toe, stage 2 (Chronic) Lower extremity neuropathy (Chronic) Other hammer toe(s) (acquired), right foot (Acute) Assessment: Same as above. Plan: No significant change. Debridement done as documented above, procedure was well-tolerated. Promogran daily with Adaptic over top. Gauze and tape over top. 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 Referred to the foot and ankle clinic. He has some bills to settle before being seen. He will also not be seen at an [place] practice due to several missed appointments in the past. Continue compression stockings and leg elevation. His questions were answered and he was advised to call with any further questions or concerns. Follow-up in 1 week. This note was generated with [employer] dictation software. It may contain incorrect words, spelling, and punctuation that were not noted in checking the note before signing. [id number]: [id number] Caterina subq tissue 20 sq cm/<
== END 2020-06-13 23:59 ==
LOC: WC 11:15
PROVIDERS: Visit Provider Internal Medicine
DX: L89.892 Pressure ulcer of other site, stage 2 (principal); M20.41 Other hammer toe(s) (acquired), right foot; G57.90 Unspecified mononeuropathy of unspecified lower limb
CPT/HCPCS: 11042

== ENCOUNTER 2020-07-05 11:30 | Outpatient (RCR) | payer MEDICARE, SELFPAY ==
[2020-06-14 00:39] VITALS: BP 140/86; PULSE 102; RESP 18; TEMP 36.7; O2SAT 98
[2020-06-14 11:09] VITALS: BP 136/86; PULSE 73; RESP 18; TEMP 36.3; BMI 40.1
[2020-06-14 11:53] VITALS: BP 134/84; RESP 92
--- NOTE | 2020-06-14 13:37 | PN.PCM_ITS ---
(1) Other hammer toe(s) (acquired), right foot Status: Chronic Current Visit: Yes Code(s): M20.41 - Other hammer toe(s) (acquired), right foot (2) Neuropathy of left lower extremity Status: Chronic Current Visit: Yes Code(s): G57.92 - Unspecified mononeuropathy of left lower limb (3) Non-compliance Status: Chronic Current Visit: Yes Code(s): Z91.19 - Patient's noncompliance with other medical treatment and regimen Type of Wound Date of Service: 06/14/20 Chief Complaint: Right Toe Ulcer History of Wound: Mr. Ferro presents with right second toe ulcer. He reports initial blistering after putting on his stockings too tight per patient. Subsequently noted ulceration. Has not applied anything to it. Denies fever, chills or feeling of unwell. Progress of Wound: Stable. Minimal area left, no new concerns. - Physical Exam Vital Signs Temp Pulse Resp BP Pulse Ox 97.3 F L 73 92 H 134/84 H 98 06/14/20 11:09 06/14/20 11:09 06/14/20 11:53 06/14/20 11:53 06/14/20 00:39 General: Alert, Oriented x3, Cooperative, No apparent distress HEENT: Atraumatic, Normocephalic Oral: Moist Mucosa Neck: Supple Lungs: Normal air movement Abdomen: Non Tender, Obese Extremities: No cyanosis Skin: Ulcer/ Wound Wound Measurements and Assessment WC - Nurse 1 - General Ulcer Measurement Start: 06/14/20 11:09 Freq: Status: Active Protocol: Activity Type Activity Date Activity User E-Sign Co-Sign Detail Recorded Client Recorded Date Recorded By Document 06/14/20 11:09 RB [id number] 06/14/20 11:12 RB 06/14/20 11:09 Wound Center Nurse 1 [Ulcer Assessment] #12 R second toe lateral -Combined with other wound No -Current Size (cm) - Length 0.1 -Current Size (cm) - Width 0.1 -Current Size (cm) - Depth 0.1 -Total Square Cm 0.01 -Tunneling No -Undermining/Tunneling No -Circular Undermining No -Exudate Amt Small -Exudate Type Serosanguineous -Wound Margin Flat & Intact -Granulation Amt Medium (34-66%) -Granulation Quality [place],Red -Necrosis Amt Small (1-33%) -Necrotic Tissue Type Adherent Slough -Structure Exposed N/A -Texture (Talisha-wound Skin Appearance) Callus -Moisture (Talisha-wound Skin Appearance Assessed ) -Color (Talisha-wound Skin Appearance) Assessed -Temperature (Talisha-wound Skin No Abnormality Appearance) (Pt Warm) -Tenderness on Palpation (Talisha-wound No Skin Appearance) -Ulcer Cleansing Wound Cleanser -Foul Odor after Cleansing No -Anesthetic Used 5% Lidocaine Gel WC - Nurse 2 - General Ulcer CM Notes Start: 06/14/20 11:09 Freq: Status: Active Protocol: Activity Type Activity Date Activity User E-Sign Co-Sign Detail Recorded Client Recorded Date Recorded By Document 06/14/20 11:42 MW [id number] 06/14/20 11:46 MW 06/14/20 11:42 Wound Center Nurse 2 [Procedure/Treatment] -Time 11:45 -Correct Patient Yes -Correct Side, Site, Position Yes -Correct Procedure Yes -Procedure Performed Yes -Type of Procedure Debridement -Clinical Debridement Epidermis / Dermis -Tissue Removed Epidermis -Post Debridement (cm) - Length 0.1 -Post Debridement (cm) - Width 0.1 -Post Debridement (cm) - Depth 0.1 -Total Square (Post) (cm) 0.01 -Area of Debridement (cm) - Length 0.1 -Area of Debridement (cm) - Width 0.1 -Total Square (Area) (cm) 0.01 -Tunneling No -Undermining/Tunneling No -Circular Undermining No -Wound/Ulcer Outcome Not Healed -Ulcer Cleansing Rinsed/ Irrigated with Saline -Foul Odor after Cleansing No -Bioengineered Tissue No -Bleeding Controlled with Pressure -Offloading No -Treatment Response Procedure Tolerated Well -Debridement - Open, 1st 20sq cm Yes [See Physician Procedure note for Specifics] Pain Scale: 0-10 Numeric [Pain] -Is Patient Pain Free? Yes HEATHER - Nurse 3 - General Ulcer D/C NN Start: 06/14/20 11:09 Freq: Status: Active Protocol: Activity Type Activity Date Activity User E-Sign Co-Sign Detail Recorded Client Recorded Date Recorded By Document 06/14/20 11:53 RB [id number] 06/14/20 11:55 RB 06/14/20 11:53 Wound Care Nurse 3 [Wound Dressing] #12 R second toe lateral -Primary Dressing Applied NonAdherent Contact Layer -Other Dressing promoran -Primary Dressing Covered/Secured Dry Gauze, with Secured with Tape Vital Signs [Respirations] -Respiratory Rate (12-18 breaths/min) 92 H -Respiratory rate source Observation [Blood Pressure] -Blood Pressure (90/60-120/80 mm Hg) 134/84 H -Blood Pressure Mean (mm Hg) 100 -Source Monitor -Position Sitting -Blood Pressure Location Left Arm Pain Scale: 0-10 Numeric [Pain] -Is Patient Pain Free? Yes Teaching: Wound Center [Wound Center Education] (Items with an * have Printed Materials Available- Please identify what is given to patient under the Teaching materials given to patient and caregiver Section. Proper Fitting Shoes -Person Taught Patient -Teaching Method Discussion, Demonstration -Response to teaching Verbalize understanding WC - Visit Discharge [Visit Discharge Information] -Discharge Condition Stable -Ambulatory Status Ambulatory -Transportation Private Auto -Medication Reconcilliation completed No & provided to patient/care provider -Clinical Summary of Care Provided Yes Musculoskeletal: No Muscle Wasting Neurological: Cranial nerves II-XII grossly intact Psych/Mental Status: Normal Affect Debridement Note Post-Debridement Measurements/Treatment WC - Nurse 2 - General Ulcer CM Notes Start: 06/14/20 11:09 Freq: Status: Active Protocol: Activity Type Activity Date Activity User E-Sign Co-Sign Detail Recorded Client Recorded Date Recorded By Document 06/14/20 11:42 MW [id number] 06/14/20 11:46 MW 06/14/20 11:42 Wound Center Nurse 2 #12 R second toe lateral -Time 11:45 -Correct Patient Yes -Correct Side, Site, Position Yes -Correct Procedure Yes -Procedure Performed Yes -Type of Procedure Debridement -Clinical Debridement Epidermis / Dermis -Tissue Removed Epidermis -Post Debridement (cm) - Length 0.1 -Post Debridement (cm) - Width 0.1 -Post Debridement (cm) - Depth 0.1 -Total Square (Post) (cm) 0.01 -Area of Debridement (cm) - Length 0.1 -Area of Debridement (cm) - Width 0.1 -Total Square (Area) (cm) 0.01 -Tunneling No -Undermining/Tunneling No -Circular Undermining No -Wound/Ulcer Outcome Not Healed -Ulcer Cleansing Rinsed/ Irrigated with Saline -Foul Odor after Cleansing No -Bioengineered Tissue No -Bleeding Controlled with Pressure -Offloading No -Treatment Response Procedure Tolerated Well -Debridement - Open, 1st 20sq cm Yes Pain Scale: 0-10 Numeric Is Patient Pain Free? Yes - Nurse 3 - General Ulcer D/C NN Start: 06/14/20 11:09 Freq: Status: Active Protocol: Activity Type Activity Date Activity User E-Sign Co-Sign Detail Recorded Client Recorded Date Recorded By Document 06/14/20 11:53 [id number] 06/14/20 11:55 RB 06/14/20 11:53 Wound Care Nurse 3 #12 R second toe lateral -Primary Dressing Applied NonAdherent Contact Layer -Other Dressing promoran -Primary Dressing Covered/Secured with Dry Gauze, Secured with Tape Vital Signs Respiratory Rate (12-18 breaths/min) 92 H Respiratory rate source Observation Blood Pressure (90/60-120/80 mm Hg) 134/84 H Blood Pressure Mean (mm Hg) 100 Source Monitor Position Sitting Blood Pressure Location Left Arm Pain Scale: 0-10 Numeric Is Patient Pain Free? Yes Teaching: Wound Center Proper Fitting Shoes -Person Taught Patient -Teaching Method Discussion, Demonstration -Response to teaching Verbalize understanding WC - Visit Discharge Discharge Condition Stable Ambulatory Status Ambulatory Transportation Private Auto Medication Reconcilliation completed & No provided to patient/care provider Clinical Summary of Care Provided Yes Wound debrided: Right second toe Type of Debridement: Selective debridement Anesthesia Used: 4% Lidocaine Solution Depth: Down to and including healthy tissue Percentage of wound debrided: 100 Tissue Removed: Devitalized tissue Severity: Limited To Skin Breakdown Amount of bleeding with debridement: Mild Bleeding Controlled with: Pressure Patient tolerated procedure well Assessment/Plan Active Problems Neuropathy of left lower extremity (Chronic) Other hammer toe(s) (acquired), right foot (Chronic) Non-compliance (Chronic) Assessment: Same as above. Plan: Minimal area left. Debridement done as documented above, procedure was well-tolerated. Promogran daily with Adaptic over top. Gauze and tape over top. 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 Referred to the foot and ankle clinic. He has some bills to settle before being seen. He states that he is settling and is almost done. He will also not be seen at an [place] practice due to several missed appointments in the past. I do not believe we will be able to establish permanent wound healing due to his deformity. Continue compression stockings and leg elevation. His questions were answered and he was advised to call with any further questions or concerns. Follow-up in 2 weeks. This note was generated with [employer] dictation software. It may contain incorrect words, spelling, and punctuation that were not noted in checking the note before s igning. [id number]: [id number] Caterina subq tissue 20 sq cm/< - Selective/superficial debridement done. Please refer to clinical note.
[2020-07-05 11:14] VITALS: BP 145/88; PULSE 81; RESP 18; TEMP 36.1; BMI 40.1
[2020-07-05 11:46] VITALS: BP 145/88
--- NOTE | 2020-07-05 12:29 | PCM.WC.PN ---
(1) Other hammer toe(s) (acquired), right foot Status: Chronic Code(s): M20.41 - Other hammer toe(s) (acquired), right foot (2) Neuropathy of left lower extremity Status: Chronic Code(s): G57.92 - Unspecified mononeuropathy of left lower limb (3) Non-compliance Status: Chronic Code(s): Z91.19 - Patient's noncompliance with other medical treatment and regimen Type of Wound Date of Service: 07/05/20 Chief Complaint: Right Toe Ulcer History of Wound: Mr. Ferro presents with right second toe ulcer. He reports initial blistering after putting on his stockings too tight per patient. Subsequently noted ulceration. Has not applied anything to it. Denies fever, chills or feeling of unwell. Progress of Wound: Stable. Minimal area left, no new concerns. - Physical Exam Vital Signs Temp Pulse Resp BP Pulse Ox 97 F L 81 18 145/88 H 98 07/05/20 11:14 07/05/20 11:14 07/05/20 11:14 07/05/20 11:46 06/14/20 00:39 General: Alert, Oriented x3, Cooperative, No apparent distress HEENT: Atraumatic, Normocephalic Oral: Moist Mucosa Neck: Supple Lungs: Normal air movement Abdomen: Non Tender, Obese Extremities: No cyanosis Skin: Ulcer/ Wound Wound Measurements and Assessment WC - Nurse 1 - General Ulcer Measurement Start: 06/14/20 11:09 Freq: Status: Active Protocol: Activity Type Activity Date Activity User E-Sign Co-Sign Detail Recorded Client Recorded Date Recorded By Document 07/05/20 11:14 [id number] 07/05/20 11:21 RB 07/05/20 11:14 Wound Center Nurse 1 [Ulcer Assessment] #12 R second toe lateral -Combined with other wound No -Current Size (cm) - Length 0.1 -Current Size (cm) - Width 0.1 -Current Size (cm) - Depth 0.1 -Total Square Cm 0.01 -Tunneling No -Undermining/Tunneling No -Circular Undermining No -Exudate Amt Small -Exudate Type Serosanguineous -Wound Margin Flat & Intact -Granulation Amt Medium (34-66%) -Granulation Quality [place] -Slough/Fibrin Yes -Necrosis Amt Small (1-33%) -Necrotic Tissue Type Adherent Slough -Structure Exposed N/A -Texture (Talisha-wound Skin Appearance) Assessed,Callus -Moisture (Talisha-wound Skin Appearance Assessed ) -Color (Talisha-wound Skin Appearance) Assessed -Temperature (Talisha-wound Skin No Abnormality Appearance) (Pt Warm) -Tenderness on Palpation (Talisha-wound No Skin Appearance) -Ulcer Cleansing Wound Cleanser -Foul Odor after Cleansing No -Anesthetic Used 5% Lidocaine Gel WC - Nurse 2 - General Ulcer CM Notes Start: 06/14/20 11:09 Freq: Status: Active Protocol: Activity Type Activity Date Activity User E-Sign Co-Sign Detail Recorded Client Recorded Date Recorded By Document 07/05/20 11:30 MW [id number] 07/05/20 11:34 MW 07/05/20 11:30 Wound Center Nurse 2 [Procedure/Treatment] -Time 11:30 -Correct Patient Yes -Correct Side, Site, Position Yes -Correct Procedure Yes -Procedure Performed Yes -Type of Procedure Debridement -Clinical Debridement Subcutaneous -Tissue Removed Subcutaneous -Post Debridement (cm) - Length 0.4 -Post Debridement (cm) - Width 0.1 -Post Debridement (cm) - Depth 0.1 -Total Square (Post) (cm) 0.04 -Area of Debridement (cm) - Length 0.4 -Area of Debridement (cm) - Width 0.1 -Total Square (Area) (cm) 0.04 -Tunneling No -Undermining/Tunneling No -Circular Undermining No -Wound/Ulcer Outcome Not Healed -Ulcer Cleansing Rinsed/ Irrigated with Saline -Foul Odor after Cleansing No -Bioengineered Tissue No -Bleeding Controlled with Pressure -Offloading No -Debridement - Subq, 1st 20sq cm Yes [See Physician Procedure note for Specifics] Pain Scale: 0-10 Numeric [Pain] -Is Patient Pain Free? Yes HEATHER - Nurse 3 - General Ulcer D/C NN Start: 06/14/20 11:09 Freq: Status: Active Protocol: Activity Type Activity Date Activity User E-Sign Co-Sign Detail Recorded Client Recorded Date Recorded By Document 07/05/20 11:46 RB [id number] 07/05/20 11:47 RB 07/05/20 11:46 Wound Care Nurse 3 [Wound Dressing] #12 R second toe lateral -Ulcer Cleansing Rinsed/ Irrigated with Saline -Primary Dressing Applied Promogran -Primary Dressing Covered/Secured Dry Gauze & with Roll Gauze, Secured with Tape -Promogran 1 Vital Signs [Blood Pressure] -Blood Pressure (90/60-120/80 mm Hg) 145/88 H -Blood Pressure Mean (mm Hg) 107 -Source Monitor -Position Semi-Fowlers -Blood Pressure Location Left Arm Pain Scale: 0-10 Numeric [Pain] -Is Patient Pain Free? Yes WC - Visit Discharge [Visit Discharge Information] -Discharge Condition Stable -Ambulatory Status Ambulatory -Transportation Private Auto -Medication Reconcilliation completed No & provided to patient/care provider -Clinical Summary of Care Provided Yes Musculoskeletal: No Muscle Wasting Neurological: Cranial nerves II-XII grossly intact Psych/Mental Status: Normal Affect Debridement Note Post-Debridement Measurements/Treatment - Nurse 2 - General Ulcer CM Notes Start: 06/14/20 11:09 Freq: Status: Active Protocol: Activity Type Activity Date Activity User E-Sign Co-Sign Detail Recorded Client Recorded Date Recorded By Document 06/14/20 11:42 MW [id number] 06/14/20 11:46 MW Document 07/05/20 11:30 MW [id number] 07/05/20 11:34 MW 06/14/20 07/05/20 11:42 11:30 Wound Center Nurse 2 #12 R second toe lateral -Time 11:45 11:30 -Correct Patient Yes Yes -Correct Side, Site, Position Yes Yes -Correct Procedure Yes Yes -Procedure Performed Yes Yes -Type of Procedure Debridement Debridement -Clinical Debridement Epidermis / Subcutaneous Dermis -Tissue Removed Epidermis Subcutaneous -Post Debridement (cm) - Length 0.1 0.4 -Post Debridement (cm) - Width 0.1 0.1 -Post Debridement (cm) - Depth 0.1 0.1 -Total Square (Post) (cm) 0.01 0.04 -Area of Debridement (cm) - Length 0.1 0.4 -Area of Debridement (cm) - Width 0.1 0.1 -Total Square (Area) (cm) 0.01 0.04 -Tunneling No No -Undermining/Tunneling No No -Circular Undermining No No -Wound/Ulcer Outcome Not Healed Not Healed -Ulcer Cleansing Rinsed/ Rinsed/ Irrigated with Irrigated with Saline Saline -Foul Odor after Cleansing No No -Bioengineered Tissue No No -Bleeding Controlled with Pressure Pressure -Offloading No No -Treatment Response Procedure Tolerated Well -Debridement - Open, 1st 20sq cm Yes -Debridement - Subq, 1st 20sq cm Yes Pain Scale: 0-10 Numeric Is Patient Pain Free? Yes Yes - Nurse 3 - General Ulcer D/C NN Start: 06/14/20 11:09 Freq: Status: Active Protocol: Activity Type Activity Date Activity User E-Sign Co-Sign Detail Recorded Client Recorded Date Recorded By Document 06/14/20 11:53 RB [id number] 06/14/20 11:55 RB Document 07/05/20 11:46 RB [id number] 07/05/20 11:47 RB 06/14/20 07/05/20 11:53 11:46 Wound Care Nurse 3 #12 R second toe lateral -Ulcer Cleansing Rinsed/ Irrigated with Saline -Primary Dressing Applied NonAdherent Promogran Contact Layer -Other Dressing promoran -Primary Dressing Covered/Secured with Dry Gauze, Dry Gauze & Secured with Roll Gauze, Tape Secured with Tape -Promogran 1 Vital Signs Respiratory Rate (12-18 breaths/min) 92 H Respiratory rate source Observation Blood Pressure (90/60-120/80 mm Hg) 134/84 H 145/88 H Blood Pressure Mean (mm Hg) 100 107 Source Monitor Monitor Position Sitting Semi-Fowlers Blood Pressure Location Left Arm Left Arm Pain Scale: 0-10 Numeric Is Patient Pain Free? Yes Yes Teaching: Wound Center Proper Fitting Shoes -Person Taught Patient -Teaching Method Discussion, Demonstration -Response to teaching Verbalize understanding WC - Visit Discharge Discharge Condition Stable Stable Ambulatory Status Ambulatory Ambulatory Transportation Private Auto Private Auto Medication Reconcilliation completed & No No provided to patient/care provider Clinical Summary of Care Provided Yes Yes Wound debrided: Right Second Toe Type of Debridement: Excisional debridement Anesthesia Used: 4% Lidocaine Solution Depth: Down to and including healthy tissue, in the subcutaneous layer Percentage of wound debrided: 100 Instrument Used: 3mm curette Tissue Removed: Devitalized tissue Severity: Fat Layer Exposed Amount of bleeding with debridement: Mild Bleeding Controlled with: Pressure Patient tolerated procedure well Assessment/Plan Assessment: Same as above. Plan: Stable. Debridement done as documented above, procedure was well-tolerated. Promogran daily with Adaptic over top. Gauze and tape over top. 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 Referred to the foot and ankle clinic. He has some bills to settle before being seen. He states that he is settling and should be able to get in within a month to two. I do not believe we will be unable to establish permanent wound healing due to his hammertoe deformity. Continue compression stockings and leg elevation. His questions were answered and he was advised to call with any further questions or concerns. Follow-up in 2 weeks. This note was generated with [employer] dictation software. It may contain incorrect words, spelling, and punctuation that were not noted in checking the note before signing. [id number]: [id number] Caterina subq tissue 20 sq cm/<
== END 2020-07-14 23:59 ==
LOC: WC 11:30
PROVIDERS: Visit Provider Internal Medicine
DX: L97.512 Non-pressure chronic ulcer of other part of right foot with fat layer exposed (principal); M20.41 Other hammer toe(s) (acquired), right foot; G57.92 Unspecified mononeuropathy of left lower limb; Z91.19 Patient's noncompliance with other medical treatment and regimen
CPT/HCPCS: 11042; 97597

== ENCOUNTER 2020-08-02 11:01 | Outpatient (RCR) | payer MEDICARE, SELFPAY ==
[2020-07-15 00:24] VITALS: BP 145/88; PULSE 81; RESP 18; TEMP 36.1; O2SAT 98
[2020-08-02 11:04] VITALS: BP 146/94; PULSE 83; TEMP 36.2; BMI 40.1
--- NOTE | 2020-08-02 12:23 | PN.PCM_ITS ---
(1) Ulcer of right foot with fat layer exposed Status: Chronic Code(s): L97.512 - Non-pressure chronic ulcer of other part of right foot with fat layer exposed Comment: Right second toe ulcer. (2) Other hammer toe(s) (acquired), right foot Status: Chronic Code(s): M20.41 - Other hammer toe(s) (acquired), right foot (3) Lower extremity neuropathy Status: Chronic Code(s): G57.90 - Unspecified mononeuropathy of unspecified lower limb Type of Wound Date of Service: 08/02/20 Chief Complaint: Right Toe Ulcer History of Wound: Mr. Ferro presents with right second toe ulcer. He reports initial blistering after putting on his stockings too tight per patient. Subse quently noted ulceration. Has not applied anything to it. Denies fever, chills or feeling of unwell. Progress of Wound: Has been out for almost a month due to Covid. Doing well at this time. Stable ulcer. - Physical Exam Vital Signs Temp Pulse Resp BP Pulse Ox 97.2 F L 83 18 146/94 H 98 08/02/20 11:04 08/02/20 11:04 07/15/20 00:24 08/02/20 11:04 07/15/20 00:24 General: Alert, Oriented x3, Cooperative, No apparent distress HEENT: Atraumatic, Normocephalic Oral: Moist Mucosa Neck: Supple Lungs: Normal air movement Extremities: No cyanosis Skin: Ulcer/ Wound Wound Measurements and Assessment WC - Nurse 1 - General Ulcer Measurement Start: 08/02/20 11:03 Freq: Status: Active Protocol: Activity Type Activity Date Activity User E-Sign Co-Sign Detail Recorded Client Recorded Date Recorded By Document 08/02/20 11:04 ARLINE [id number] 08/02/20 11:05 ARLINE 08/02/20 11:04 Wound Center Nurse 1 [Ulcer Assessment] #12 R second toe lateral -Current Size (cm) - Length 0.7 -Current Size (cm) - Width 0.5 -Current Size (cm) - Depth 0.1 -Total Square Cm 0.35 -Photo Taken No -Exudate Amt Small -Exudate Type Serosanguineous -Wound Margin Distinct, Outline Attached -Granulation Amt Small (1-33%) -Granulation Quality Red -Necrosis Amt Small (1-33%) -Necrotic Tissue Type Adherent Slough -Texture (Talisha-wound Skin Appearance) No Abnormality -Moisture (Talisha-wound Skin Appearance No Abnormality ) -Color (Talisha-wound Skin Appearance) No Abnormality -Temperature (Talisha-wound Skin No Abnormality Appearance) (Pt Warm) -Tenderness on Palpation (Talisha-wound No Skin Appearance) -Ulcer Cleansing Rinsed/ Irrigated with Saline -Foul Odor after Cleansing No -Anesthetic Used 4% Lidocaine Solution HEATHER - Nurse 2 - General Ulcer CM Notes Start: 08/02/20 11:03 Freq: Status: Active Protocol: Activity Type Activity Date Activity User E-Sign Co-Sign Detail Recorded Client Recorded Date Recorded By Document 08/02/20 11:48 MW [id number] 08/02/20 11:51 MW 08/02/20 11:48 Wound Center Nurse 2 [Procedure/Treatment] -Time 11:48 -Correct Patient Yes -Correct Side, Site, Position Yes -Correct Procedure Yes -Procedure Performed Yes -Type of Procedure Debridement -Clinical Debridement Subcutaneous -Tissue Removed Subcutaneous -Post Debridement (cm) - Length 0.3 -Post Debridement (cm) - Width 0.4 -Post Debridement (cm) - Depth 0.1 -Total Square (Post) (cm) 0.12 -Area of Debridement (cm) - Length 0.3 -Area of Debridement (cm) - Width 0.4 -Total Square (Area) (cm) 0.12 -Tunneling No -Undermining/Tunneling No -Circular Undermining No -Wound/Ulcer Outcome Not Healed -Ulcer Cleansing Rinsed/ Irrigated with Saline -Foul Odor after Cleansing No -Bioengineered Tissue No -Bleeding Controlled with Pressure -Offloading No -Treatment Response Procedure Tolerated Well -Debridement - Subq, 1st 20sq cm Yes [See Physician Procedure note for Specifics] Pain Scale: 0-10 Numeric [Pain] -Is Patient Pain Free? Yes HEATHER - Nurse 3 - General Ulcer D/C NN Start: 08/02/20 11:03 Freq: Status: Active Protocol: Activity Type Activity Date Activity User E-Sign Co-Sign Detail Recorded Client Recorded Date Recorded By Document 08/02/20 12:01 MW [id number] 08/02/20 12:02 MW 08/02/20 12:01 Wound Care Nurse 3 [Wound Dressing] #12 R second toe lateral -Ulcer Cleansing Rinsed/ Irrigated with Saline -Foul Odor after Cleansing No -Negative Pressure Wound Therapy N/A -Primary Dressing Applied NonAdherent Contact Layer, Promogran -Primary Dressing Covered/Secured Dry Gauze, with Secured with Tape -Promogran 1 [Post Procedure Tolerated] -Treatment Response Procedure Tolerated Well Pain Scale: 0-10 Numeric [Pain] -Is Patient Pain Free? Yes WC - Visit Discharge [Visit Discharge Information] -Discharge Condition Stable -Ambulatory Status Ambulatory -Transportation Private Auto -Accompanied by self -Medication Reconcilliation completed No & provided to patient/care provider -Clinical Summary of Care Provided Yes Musculoskeletal: No Muscle Wasting Neurological: Cranial nerves II-XII grossly intact Psych/Mental Status: Normal Affect Debridement Note Post-Debridement Measurements/Treatment HEATHER - Nurse 2 - General Ulcer CM Notes Start: 08/02/20 11:03 Freq: Status: Active Protocol: Activity Type Activity Date Activity User E-Sign Co-Sign Detail Recorded Client Recorded Date Recorded By Document 08/02/20 11:48 MW [id number] 08/02/20 11:51 MW 08/02/20 11:48 Wound Center Nurse 2 #12 R second toe lateral -Time 11:48 -Correct Patient Yes -Correct Side, Site, Position Yes -Correct Procedure Yes -Procedure Performed Yes -Type of Procedure Debridement -Clinical Debridement Subcutaneous -Tissue Removed Subcutaneous -Post Debridement (cm) - Length 0.3 -Post Debridement (cm) - Width 0.4 -Post Debridement (cm) - Depth 0.1 -Total Square (Post) (cm) 0.12 -Area of Debridement (cm) - Length 0.3 -Area of Debridement (cm) - Width 0.4 -Total Square (Area) (cm) 0.12 -Tunneling No -Undermining/Tunneling No -Circular Undermining No -Wound/Ulcer Outcome Not Healed -Ulcer Cleansing Rinsed/ Irrigated with Saline -Foul Odor after Cleansing No -Bioengineered Tissue No -Bleeding Controlled with Pressure -Offloading No -Treatment Response Procedure Tolerated Well -Debridement - Subq, 1st 20sq cm Yes Pain Scale: 0-10 Numeric Is Patient Pain Free? Yes - Nurse 3 - General Ulcer D/C NN Start: 08/02/20 11:03 Freq: Status: Active Protocol: Activity Type Activity Date Activity User E-Sign Co-Sign Detail Recorded Client Recorded Date Recorded By Document 08/02/20 12:01 MW [id number] 08/02/20 12:02 MW 08/02/20 12:01 Wound Care Nurse 3 #12 R second toe lateral -Ulcer Cleansing Rinsed/ Irrigated with Saline -Foul Odor after Cleansing No -Negative Pressure Wound Therapy N/A -Primary Dressing Applied NonAdherent Contact Layer, Promogran -Primary Dressing Covered/Secured with Dry Gauze, Secured with Tape -Promogran 1 Treatment Response Procedure Tolerated Well Pain Scale: 0-10 Numeric Is Patient Pain Free? Yes WC - Visit Discharge Discharge Condition Stable Ambulatory Status Ambulatory Transportation Private Auto Accompanied by self Medication Reconcilliation completed & No provided to patient/care provider Clinical Summary of Care Provided Yes Wound debrided: Right second toe Type of Debridement: Excisional debridement Anesthesia Used: 4% Lidocaine Solution Depth: Down to and including healthy tissue, in the subcutaneous layer Percentage of wound debrided: 100 Instrument Used: 3mm curette Tissue Removed: Slough and devitalized tissue Severity: Fat Layer Exposed Amount of bleeding with debridement: Mild Bleeding Controlled with: Pressure Patient tolerated procedure well Assessment/Plan Assessment: Recurrent right second toe ulcer due to chronic hammertoe deformity. Peripheral neuropathy. Plan: Stable. Debridement done as documented above, procedure was well- tolerated. 10 you Promogran daily with Adaptic over top. Gauze and tape over top. 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 Referred to the foot and ankle clinic. He has some bills to settle before being seen. He states that he is settling and should be able to get in within a month to two. I do not believe we will be unable to establish permanent wound healing due to his hammertoe deformity. Continue compression stockings and leg elevation. His questions were answered and he was advised to call with any further questions or concerns. Follow-up in 2 weeks. This note was generated with [employer] software. It may contain incorrect words, spelling, and punctuation that were not noted in checking the note before signing. [id number]: [id number] Caterina subq tissue 20 sq cm/<
== END 2020-08-13 23:59 ==
LOC: WC 11:01
PROVIDERS: Visit Provider Internal Medicine
DX: L97.512 Non-pressure chronic ulcer of other part of right foot with fat layer exposed (principal); M20.41 Other hammer toe(s) (acquired), right foot; G57.90 Unspecified mononeuropathy of unspecified lower limb; G62.9 Polyneuropathy, unspecified
CPT/HCPCS: 11042

== ENCOUNTER 2020-08-16 08:52 | Outpatient (RCR) | payer MEDICARE, SELFPAY ==
[2020-08-14 00:24] VITALS: BP 146/94; PULSE 83; RESP 18; TEMP 36.2; O2SAT 98
[2020-08-16 08:57] VITALS: BP 137/78; PULSE 82; RESP 20; TEMP 36.9; BMI 40.1
[2020-08-16 09:51] VITALS: BP 138/78
--- NOTE | 2020-08-16 13:05 | PCM.WC.HP ---
(1) Ulcer of left foot with fat layer exposed Status: Acute Code(s): L97.522 - Non-pressure chronic ulcer of other part of left foot with fat layer exposed (2) Pressure ulcer of toe, stage 2 Status: Chronic Qualifiers: Code(s): L89.892 - Pressure ulcer of other site, stage 2 (3) Neuropathy of left lower extremity Status: Chronic Code(s): G57.92 - Unspecified mononeuropathy of left lower limb (4) Other hammer toe(s) (acquired), right foot Status: Chronic Code(s): M20.41 - Other hammer toe(s) (acquired), right foot History of Present Illness Date of Service: 08/17/20 Chief Complaint: Left Foot Ulcer, Right Second Toe Ulcer History of Wound: Mr. Ferro Is currently being seen/managed here for right second toe ulcer. He however now presents with very left Plantar foot ulcer which was said to have started some days ago. He states that he was in his garage for a long time and subsequently noted blistering around the area with eventual opening. Denies any significant pain or drainage. History of neuropathy. Past Medical History Past Medical History: Chronic Problems Pressure ulcer of toe, stage 2 (Chronic) Neuropathy of left lower extremity (Chronic) Ulcer of right foot with fat layer exposed (Chronic) Lower extremity neuropathy (Chronic) Other hammer toe(s) (acquired), right foot (Chronic) Other hammer toe(s) (acquired), left foot (Chronic) PVD (peripheral vascular disease) (Chronic) Chronic ulcer of left foot with fat layer exposed (Chronic) Ulcer of right foot with fat layer exposed (Chronic) Right second toe ulcer. Non-compliance (Chronic) Surgical History: - - Hx L ankle/heel surgery 2008 Allergies/Adverse Reactions: Allergies No Known Allergies Allergy (Verified 06/23/19 11:07) Home Medications: Ambulatory Orders Medication Instructions Recorded Adalimumab [Humira] 10 mg SQ 08/11/17 Allopurinol 100 mg PO DAILY 08/11/17 Aspirin [Aspirin, Baby] 81 mg PO DAILY@0800 08/11/17 Budesonide/Formoterol 160/4.5 2 puff INHALATION DAILY PRN 08/11/17 [Symbicort 160/4.5 Mcg Inhaler (SP)] Citalopram [Celexa] 40 mg PO DAILY 08/11/17 Docusate Sodium [Colace] 100 mg PO DAILY 08/11/17 Gabapentin [Neurontin] 600 mg PO TID 08/11/17 Modafinil [Provigil] 100 mg PO DAILY 08/11/17 Naproxen [Naprosyn] 500 mg PO BID PRN PRN 08/11/17 Tamsulosin HCl [Flomax] 0.4 mg PO DAILY 08/11/17 Tizanidine HCl 4 mg PO PRN PRN 08/11/17 Fluticasone/Salmeterol [Advair 1 each IH DAILY PRN PRN 04/30/18 250-50 Diskus] Lactobacillus Acidophilus 1 each PO DAILY 12/16/18 [Acidophilus] Smoking Status: Never smoker Review of Systems Constitutional: Denies: Anorexia, Chills, Fever, Malaise, Weakness Eyes: Denies: Blurred vision, Pain, Redness HEENT: Denies: Difficulty Hearing, Difficulty Swallowing, Head Aches, Sore Throat Cardiovascular: Denies: Chest Pain, Claudication, Chest Pressure, Palpitations Respiratory: Denies: Cough, Hemoptysis, Sputum production, Wheezing Gastrointestinal: Denies: Abdominal Pain, Hematemesis, Vomiting Genitourinary: Denies: Hematuria Skin: Denies: Jaundice - Physical Exam Vital Signs Temp Pulse Resp BP Pulse Ox 98.4 F 82 20 H 138/78 H 98 08/16/20 08:57 08/16/20 08:57 08/16/20 08:57 08/16/20 09:51 08/14/20 00:24 General: Alert, Oriented x3, Cooperative, No apparent distress HEENT: Atraumatic, Normocephalic Oral: Moist Mucosa Neck: Supple Lungs: Normal air movement Abdomen: Non Tender, Obese Extremities: No cyanosis Skin: Ulcer/ Wound Wound Measurements and Assessment WC - Nurse 1 - General Ulcer Measurement Start: 08/16/20 08:57 Freq: Status: Active Protocol: Activity Type Activity Date Activity User E-Sign Co-Sign Detail Recorded Client Recorded Date Recorded By Document 08/16/20 08:57 DL [id number] 08/16/20 09:08 DL 08/16/20 08:57 Wound Center Nurse 1 [Ulcer Assessment] #13 L Plantar -Current Size (cm) - Length 0.1 -Current Size (cm) - Width 0.1 -Current Size (cm) - Depth 0.1 -Total Square Cm 0.01 -Photo Taken Yes -Exudate Amt None Present -Wound Margin Thickened -Granulation Amt Medium (34-66%) -Granulation Quality [place] -Necrosis Amt Medium (34-66%) -Necrotic Tissue Type Adherent Slough -Structure Exposed N/A -Texture (Talisha-wound Skin Appearance) Callus -Moisture (Talisha-wound Skin Appearance No Abnormality ) -Color (Talisha-wound Skin Appearance) No Abnormality -Temperature (Talisha-wound Skin No Abnormality Appearance) (Pt Warm) -Tenderness on Palpation (Talisha-wound No Skin Appearance) -Ulcer Cleansing Wound Cleanser -Foul Odor after Cleansing No -Anesthetic Used 4% Lidocaine Solution #12 R second toe lateral -Current Size (cm) - Length 0.2 -Current Size (cm) - Width 0.2 -Current Size (cm) - Depth 0.2 -Total Square Cm 0.04 -Photo Taken No -Maximum Distance #2 (cm) 0.2 -Circular Undermining Yes -Exudate Amt Small -Exudate Type Serosanguineous -Wound Margin Distinct, Outline Attached -Granulation Amt Small (1-33%) -Granulation Quality Pale -Necrosis Amt Small (1-33%) -Necrotic Tissue Type Adherent Slough -Structure Exposed N/A -Texture (Talisha-wound Skin Appearance) Callus,Scarring -Moisture (Talisha-wound Skin Appearance No Abnormality ) -Color (Talisha-wound Skin Appearance) No Abnormality -Temperature (Talisha-wound Skin No Abnormality Appearance) (Pt Warm) -Tenderness on Palpation (Talisha-wound No Skin Appearance) -Ulcer Cleansing Rinsed/ Irrigated with Saline -Foul Odor after Cleansing No -Anesthetic Used 4% Lidocaine Solution WC - Nurse 2 - General Ulcer CM Notes Start: 08/16/20 08:57 Freq: Status: Active Protocol: Activity Type Activity Date Activity User E-Sign Co-Sign Detail Recorded Client Recorded Date Recorded By Document 08/16/20 09:26 MW [id number] 08/16/20 09:39 MW 08/16/20 09:26 Wound Center Nurse 2 [Procedure/Treatment] #13 L Plantar -Time 09:26 -Correct Patient Yes -Correct Side, Site, Position Yes -Correct Procedure Yes -Procedure Performed Yes -Type of Procedure Debridement -Clinical Debridement Subcutaneous -Tissue Removed Subcutaneous -Post Debridement (cm) - Length 2.5 -Post Debridement (cm) - Width 1.0 -Post Debridement (cm) - Depth 0.1 -Total Square (Post) (cm) 2.50 -Area of Debridement (cm) - Length 2.5 -Area of Debridement (cm) - Width 1.0 -Total Square (Area) (cm) 2.50 -Tunneling No -Undermining/Tunneling No -Circular Undermining No -Wound/Ulcer Outcome Not Healed -Ulcer Cleansing Rinsed/ Irrigated with Saline -Foul Odor after Cleansing No -Bioengineered Tissue No -Bleeding Controlled with Pressure -Offloading No -Treatment Response Procedure Tolerated Well -Debridement - Subq, 1st 20sq cm Yes #12 R second toe lateral -Time 09:27 -Correct Patient Yes -Correct Side, Site, Position Yes -Correct Procedure Yes -Procedure Performed Yes -Type of Procedure Debridement -Clinical Debridement Subcutaneous -Tissue Removed Subcutaneous -Post Debridement (cm) - Length 0.4 -Post Debridement (cm) - Width 0.2 -Post Debridement (cm) - Depth 0.1 -Total Square (Post) (cm) 0.08 -Area of Debridement (cm) - Length 0.4 -Area of Debridement (cm) - Width 0.2 -Total Square (Area) (cm) 0.08 -Tunneling No -Undermining/Tunneling No -Circular Undermining No -Wound/Ulcer Outcome Not Healed -Ulcer Cleansing Rinsed/ Irrigated with Saline -Foul Odor after Cleansing No -Bioengineered Tissue No -Bleeding Controlled with Pressure -Offloading No -Treatment Response Procedure Tolerated Well -Debridement - Subq, 1st 20sq cm No [See Physician Procedure note for Specifics] Pain Scale: 0-10 Numeric [Pain] -Is Patient Pain Free? Yes WC - Nurse 3 - General Ulcer D/C NN Start: 08/16/20 08:57 Freq: Status: Active Protocol: Activity Type Activity Date Activity User E-Sign Co-Sign Detail Recorded Client Recorded Date Recorded By Document 08/16/20 09:51 RB [id number] 08/16/20 09:53 RB 08/16/20 09:51 Wound Care Nurse 3 [Wound Dressing] #13 L Plantar -Ulcer Cleansing Rinsed/ Irrigated with Saline -Other Dressing promogran -Primary Dressing Covered/Secured Dry Gauze, with Secured with Tape #12 R second toe lateral -Ulcer Cleansing Rinsed/ Irrigated with Saline -Other Dressing promogran -Primary Dressing Covered/Secured Dry Gauze, with Secured with Tape [Post Procedure Tolerated] -Treatment Response Procedure Tolerated Well Vital Signs [Blood Pressure] -Blood Pressure (90/60-120/80 mm Hg) 138/78 H -Blood Pressure Mean (mm Hg) 98 -Source Monitor -Position Semi-Fowlers -Blood Pressure Location Left Arm Pain Scale: 0-10 Numeric [Pain] -Is Patient Pain Free? Yes WC - Visit Discharge [Visit Discharge Information] -Discharge Condition Stable -Ambulatory Status Ambulatory -Transportation Private Auto -Medication Reconcilliation completed No & provided to patient/care provider -Clinical Summary of Care Provided Yes Musculoskeletal: No Muscle Wasting Neurological: Cranial nerves II-XII grossly intact Debridement Note Post-Debridement Measurements/Treatment WC - Nurse 2 - General Ulcer CM Notes Start: 08/16/20 08:57 Freq: Status: Active Protocol: Activity Type Activity Date Activity User E-Sign Co-Sign Detail Recorded Client Recorded Date Recorded By Document 08/16/20 09:26 MW [id number] 08/16/20 09:39 MW 08/16/20 09:26 Wound Center Nurse 2 #13 L Plantar -Time 09:26 -Correct Patient Yes -Correct Side, Site, Position Yes -Correct Procedure Yes -Procedure Performed Yes -Type of Procedure Debridement -Clinical Debridement Subcutaneous -Tissue Removed Subcutaneous -Post Debridement (cm) - Length 2.5 -Post Debridement (cm) - Width 1.0 -Post Debridement (cm) - Depth 0.1 -Total Square (Post) (cm) 2.50 -Area of Debridement (cm) - Length 2.5 -Area of Debridement (cm) - Width 1.0 -Total Square (Area) (cm) 2.50 -Tunneling No -Undermining/Tunneling No -Circular Undermining No -Wound/Ulcer Outcome Not Healed -Ulcer Cleansing Rinsed/ Irrigated with Saline -Foul Odor after Cleansing No -Bioengineered Tissue No -Bleeding Controlled with Pressure -Offloading No -Treatment Response Procedure Tolerated Well -Debridement - Subq, 1st 20sq cm Yes #12 R second toe lateral -Time 09:27 -Correct Patient Yes -Correct Side, Site, Position Yes -Correct Procedure Yes -Procedure Performed Yes -Type of Procedure Debridement -Clinical Debridement Subcutaneous -Tissue Removed Subcutaneous -Post Debridement (cm) - Length 0.4 -Post Debridement (cm) - Width 0.2 -Post Debridement (cm) - Depth 0.1 -Total Square (Post) (cm) 0.08 -Area of Debridement (cm) - Length 0.4 -Area of Debridement (cm) - Width 0.2 -Total Square (Area) (cm) 0.08 -Tunneling No -Undermining/Tunneling No -Circular Undermining No -Wound/Ulcer Outcome Not Healed -Ulcer Cleansing Rinsed/ Irrigated with Saline -Foul Odor after Cleansing No -Bioengineered Tissue No -Bleeding Controlled with Pressure -Offloading No -Treatment Response Procedure Tolerated Well -Debridement - Subq, 1st 20sq cm No Pain Scale: 0-10 Numeric Is Patient Pain Free? Yes - Nurse 3 - General Ulcer D/C NN Start: 08/16/20 08:57 Freq: Status: Active Protocol: Activity Type Activity Date Activity User E-Sign Co-Sign Detail Recorded Client Recorded Date Recorded By Document 08/16/20 09:51 RB [id number] 08/16/20 09:53 RB 08/16/20 09:51 Wound Care Nurse 3 #13 L Plantar -Ulcer Cleansing Rinsed/ Irrigated with Saline -Other Dressing promogran -Primary Dressing Covered/Secured with Dry Gauze, Secured with Tape #12 R second toe lateral -Ulcer Cleansing Rinsed/ Irrigated with Saline -Other Dressing promogran -Primary Dressing Covered/Secured with Dry Gauze, Secured with Tape Treatment Response Procedure Tolerated Well Vital Signs Blood Pressure (90/60-120/80 mm Hg) 138/78 H Blood Pressure Mean (mm Hg) 98 Source Monitor Position Semi-Fowlers Blood Pressure Location Left Arm Pain Scale: 0-10 Numeric Is Patient Pain Free? Yes WC - Visit Discharge Discharge Condition Stable Ambulatory Status Ambulatory Transportation Private Auto Medication Reconcilliation completed & No provided to patient/care provider Clinical Summary of Care Provided Yes Wound debrided: Right second toe Type of Debridement: Excisional debridement Anesthesia Used: 4% Lidocaine Solution Depth: Down to and including healthy tissue, in the subcutaneous layer Percentage of wound debrided: 100 Instrument Used: 3mm curette Tissue Removed: Slough and devitalized tissue Severity: Fat Layer Exposed Amount of bleeding with debridement: Mild Bleeding Controlled with: Pressure Patient tolerated procedure well - Additional Wound Wound debrided: Left foot (plantar) Type of Debridement: Excisional debridement Anesthesia Used: 4% Lidocaine Solution Depth: Down to and including healthy tissue, in the subcutaneous layer Percentage of wound debrided: 100 Instrument Used: 5mm curette Tissue Removed: Slough and devitalized tissue Severity: Fat Layer Exposed Amount of bleeding with debridement: Mild Bleeding Controlled with: Pressure Patient tolerated procedure: Patient tolerated procedure well Assessment/Plan Active Problems Pressure ulcer of toe, stage 2 (Chronic) Neuropathy of left lower extremity (Chronic) Other hammer toe(s) (acquired), right foot (Chronic) Ulcer of left foot with fat layer exposed (Acute) Assessment: Recurrent right second toe ulcer due to chronic hammertoe deformity. Peripheral neuropathy. Acute Left Foot Ulcer Plan: New left plantar foot ulcer. Likely pressure related. History of neuropathy as well.Debridement done as documented above, procedure was well-tolerated. ContinuePromogran daily with Adaptic over top to both ulcers. Gauze and tape over top. He was again advised to establish with a surveillance director due to his chronic hammertoes and deformities. Referred to the foot and ankle clinic. He has some bills to settle before being seen. He states that he is settling and should be able to get in within a month to two. I do not believe we will be unable to establish permanent wound healing due to his deformity and Neuropathy. Continue compression stockings and leg elevation. His questions were answered and he was advised to call with any further questions or concerns. Follow-up in 2 weeks. This note was generated with [employer] dictation software. It may contain incorrect words, spelling, and punctuation that were not noted in checking the note before signing. Multi Select Codes - Visit Charges Office Visit/Consults: 89412 OV L3 Est - Integumentary Integumentary CPT Codes: 81344 Caterina subq tissue 20 sq cm/<
== END 2020-09-13 23:59 ==
LOC: WC 08:52
PROVIDERS: Visit Provider Internal Medicine
DX: L97.522 Non-pressure chronic ulcer of other part of left foot with fat layer exposed (principal); L89.892 Pressure ulcer of other site, stage 2; G57.92 Unspecified mononeuropathy of left lower limb; M20.41 Other hammer toe(s) (acquired), right foot; L97.512 Non-pressure chronic ulcer of other part of right foot with fat layer exposed; I73.9 Peripheral vascular disease, unspecified; Z79.1 Long term (current) use of non-steroidal anti-inflammatories (NSAID); Z79.51 Long term (current) use of inhaled steroids; Z79.82 Long term (current) use of aspirin; Z91.19 Patient's noncompliance with other medical treatment and regimen; G62.9 Polyneuropathy, unspecified
CPT/HCPCS: 11042

== ENCOUNTER 2020-10-04 11:15 | Outpatient (RCR) | payer MEDICARE, SELFPAY ==
[2020-09-14 00:21] VITALS: BP 138/78; PULSE 82; RESP 20; TEMP 36.9; O2SAT 98
[2020-09-20 10:12] VITALS: BP 132/87; PULSE 65; RESP 16; TEMP 36.5; BMI 40.1
--- NOTE | 2020-09-20 11:23 | PCM.WC.PN ---
(1) Ulcer of left foot with fat layer exposed Status: Chronic Code(s): L97.522 - Non-pressure chronic ulcer of other part of left foot with fat layer exposed (2) Lower extremity neuropathy Status: Chronic Code(s): G57.90 - Unspecified mononeuropathy of unspecified lower limb (3) Other hammer toe(s) (acquired), right foot Status: Chronic Code(s): M20.41 - Other hammer toe(s) (acquired), right foot (4) Pressure ulcer of toe, stage 2 Status: Chronic Qualifiers: Code(s): L89.892 - Pressure ulcer of other site, stage 2 Type of Wound Date of Service: 09/20/20 Chief Complaint: Left Foot Ulcer, Right Second Toe Ulcer History of Wound: Mr. Ferro Is currently being seen/managed here for right second toe ulcer. He however now presents with very left Plantar foot ulcer which was said to have started some days ago. He states that he was in his garage for a long time and subsequently noted blistering around the area with eventual opening. Denies any significant pain or drainage. History of neuropathy. Progress of Wound: No new concerns at this time. Yet to get in with podiatry. - Physical Exam Vital Signs Temp Pulse Resp BP Pulse Ox 97.7 F L 65 16 132/87 H 98 09/20/20 10:12 09/20/20 10:12 09/20/20 10:12 09/20/20 10:12 09/14/20 00:21 General: Alert, Oriented x3, Cooperative, No apparent distress HEENT: Atraumatic, Normocephalic Oral: Moist Mucosa Neck: Supple Lungs: Normal air movement Abdomen: Non Tender, Obese Extremities: No cyanosis Skin: Ulcer/ Wound Wound Measurements and Assessment WC - Nurse 1 - General Ulcer Measurement Start: 09/20/20 10:10 Freq: Status: Active Protocol: Activity Type Activity Date Activity User E-Sign Co-Sign Detail Recorded Client Recorded Date Recorded By Document 09/20/20 10:12 [facility] [id number] 09/20/20 10:21 [facility] 09/20/20 10:12 Wound Center Nurse 1 [Ulcer Assessment] #13 L Plantar -Combined with other wound No -Current Size (cm) - Length 0.2 -Current Size (cm) - Width 0.2 -Current Size (cm) - Depth 0.3 -Total Square Cm 0.04 -Photo Taken No -Epithelialization None Present -Tunneling No -Undermining/Tunneling Yes -Undermining/Tunneling Starts (O' 12 clock) -Undermining/Tunneling Ends (O'clock) 12 -Maximum Distance (cm) 0.1 -Circular Undermining Yes -Exudate Amt Medium -Exudate Type Serosanguineous -Wound Margin Distinct, Outline Attached -Granulation Amt None Present (0 %) -Slough/Fibrin Yes -Necrosis Amt Large (67-100%) -Necrotic Tissue Type Adherent Slough -Texture (Talisha-wound Skin Appearance) Callus,Scarring -Moisture (Talisha-wound Skin Appearance Assessed,Dry/ ) Scaly -Color (Talisha-wound Skin Appearance) Assessed -Temperature (Talisha-wound Skin No Abnormality Appearance) (Pt Warm) -Tenderness on Palpation (Talisha-wound No Skin Appearance) -Ulcer Cleansing Rinsed/ Irrigated with Saline -Foul Odor after Cleansing No -Anesthetic Used 5% Lidocaine Gel #12 R second toe lateral -Combined with other wound No -Current Size (cm) - Length 0.4 -Current Size (cm) - Width 0.2 -Current Size (cm) - Depth 0.2 -Total Square Cm 0.08 -Photo Taken No -Epithelialization None Present -Tunneling No -Undermining/Tunneling No -Circular Undermining No -Exudate Amt Medium -Exudate Type Serosanguineous -Wound Margin Distinct, Outline Attached -Granulation Amt Medium (34-66%) -Granulation Quality Red -Slough/Fibrin Yes -Necrosis Amt Medium (34-66%) -Necrotic Tissue Type Adherent Slough -Texture (Talisha-wound Skin Appearance) Assessed,Callus ,Scarring -Moisture (Talisha-wound Skin Appearance Assessed,Dry/ ) Scaly -Color (Talisha-wound Skin Appearance) Assessed -Temperature (Talisha-wound Skin No Abnormality Appearance) (Pt Warm) -Tenderness on Palpation (Talisha-wound No Skin Appearance) -Ulcer Cleansing Rinsed/ Irrigated with Saline -Foul Odor after Cleansing No -Anesthetic Used 5% Lidocaine Gel WC - Nurse 2 - General Ulcer CM Notes Start: 09/20/20 10:10 Freq: Status: Active Protocol: Activity Type Activity Date Activity User E-Sign Co-Sign Detail Recorded Client Recorded Date Recorded By Document 09/20/20 10:27 MW [id number] 09/20/20 10:42 MW 09/20/20 10:27 Wound Center Nurse 2 [Procedure/Treatment] #13 L Plantar -Time 10:28 -Correct Patient Yes -Correct Side, Site, Position Yes -Correct Procedure Yes -Procedure Performed Yes -Type of Procedure Debridement -Clinical Debridement Subcutaneous -Tissue Removed Subcutaneous -Post Debridement (cm) - Length 0.2 -Post Debridement (cm) - Width 1.0 -Post Debridement (cm) - Depth 0.1 -Total Square (Post) (cm) 0.20 -Area of Debridement (cm) - Length 0.2 -Area of Debridement (cm) - Width 1.0 -Total Square (Area) (cm) 0.20 -Tunneling No -Undermining/Tunneling No -Circular Undermining No -Wound/Ulcer Outcome Not Healed -Ulcer Cleansing Rinsed/ Irrigated with Saline -Foul Odor after Cleansing No -Bioengineered Tissue No -Bleeding Controlled with Pressure -Offloading No -Treatment Response Procedure Tolerated Well -Debridement - Subq, 1st 20sq cm Yes #12 R second toe lateral -Time 10:28 -Correct Patient Yes -Correct Side, Site, Position Yes -Correct Procedure Yes -Procedure Performed Yes -Type of Procedure Debridement -Clinical Debridement Subcutaneous -Tissue Removed Subcutaneous -Post Debridement (cm) - Length 0.4 -Post Debridement (cm) - Width 0.3 -Post Debridement (cm) - Depth 0.1 -Total Square (Post) (cm) 0.12 -Area of Debridement (cm) - Length 0.4 -Area of Debridement (cm) - Width 0.3 -Total Square (Area) (cm) 0.12 -Tunneling No -Undermining/Tunneling No -Circular Undermining No -Wound/Ulcer Outcome Not Healed -Ulcer Cleansing Rinsed/ Irrigated with Saline -Foul Odor after Cleansing No -Bioengineered Tissue No -Bleeding Controlled with Pressure -Offloading No -Treatment Response Procedure Tolerated Well -Debridement - Subq, 1st 20sq cm No [See Physician Procedure note for Specifics] Pain Scale: 0-10 Numeric [Pain] -Is Patient Pain Free? Yes WC - Nurse 3 - General Ulcer D/C NN Start: 09/20/20 10:10 Freq: Status: Active Protocol: Activity Type Activity Date Activity User E-Sign Co-Sign Detail Recorded Client Recorded Date Recorded By Document 09/20/20 10:54 BM [id number] 09/20/20 10:55 BM 09/20/20 10:54 Wound Care Nurse 3 [Wound Dressing] #13 L Plantar -Ulcer Cleansing Rinsed/ Irrigated with Saline -Foul Odor after Cleansing No -Primary Dressing Applied NonAdherent Contact Layer, Promogran -Primary Dressing Covered/Secured Dry Gauze, with Secured with Tape -Promogran 1 #12 R second toe lateral -Ulcer Cleansing Rinsed/ Irrigated with Saline -Foul Odor after Cleansing No -Primary Dressing Applied NonAdherent Contact Layer, Promogran -Primary Dressing Covered/Secured Dry Gauze, with Secured with Tape -Promogran 0 [Post Procedure Tolerated] -Treatment Response Procedure Tolerated Well Pain Scale: 0-10 Numeric [Pain] -Is Patient Pain Free? Yes WC - Visit Discharge [Visit Discharge Information] -Discharge Condition Stable -Ambulatory Status Ambulatory -Transportation Private Auto Musculoskeletal: No Muscle Wasting Neurological: Cranial nerves II-XII grossly intact Psych/Mental Status: Normal Affect Debridement Note Post-Debridement Measurements/Treatment WC - Nurse 2 - General Ulcer CM Notes Start: 09/20/20 10:10 Freq: Status: Active Protocol: Activity Type Activity Date Activity User E-Sign Co-Sign Detail Recorded Client Recorded Date Recorded By Document 09/20/20 10:27 MW [id number] 09/20/20 10:42 MW 09/20/20 10:27 Wound Center Nurse 2 #13 L Plantar -Time 10:28 -Correct Patient Yes -Correct Side, Site, Position Yes -Correct Procedure Yes -Procedure Performed Yes -Type of Procedure Debridement -Clinical Debridement Subcutaneous -Tissue Removed Subcutaneous -Post Debridement (cm) - Length 0.2 -Post Debridement (cm) - Width 1.0 -Post Debridement (cm) - Depth 0.1 -Total Square (Post) (cm) 0.20 -Area of Debridement (cm) - Length 0.2 -Area of Debridement (cm) - Width 1.0 -Total Square (Area) (cm) 0.20 -Tunneling No -Undermining/Tunneling No -Circular Undermining No -Wound/Ulcer Outcome Not Healed -Ulcer Cleansing Rinsed/ Irrigated with Saline -Foul Odor after Cleansing No -Bioengineered Tissue No -Bleeding Controlled with Pressure -Offloading No -Treatment Response Procedure Tolerated Well -Debridement - Subq, 1st 20sq cm Yes #12 R second toe lateral -Time 10:28 -Correct Patient Yes -Correct Side, Site, Position Yes -Correct Procedure Yes -Procedure Performed Yes -Type of Procedure Debridement -Clinical Debridement Subcutaneous -Tissue Removed Subcutaneous -Post Debridement (cm) - Length 0.4 -Post Debridement (cm) - Width 0.3 -Post Debridement (cm) - Depth 0.1 -Total Square (Post) (cm) 0.12 -Area of Debridement (cm) - Length 0.4 -Area of Debridement (cm) - Width 0.3 -Total Square (Area) (cm) 0.12 -Tunneling No -Undermining/Tunneling No -Circular Undermining No -Wound/Ulcer Outcome Not Healed -Ulcer Cleansing Rinsed/ Irrigated with Saline -Foul Odor after Cleansing No -Bioengineered Tissue No -Bleeding Controlled with Pressure -Offloading No -Treatment Response Procedure Tolerated Well -Debridement - Subq, 1st 20sq cm No Pain Scale: 0-10 Numeric Is Patient Pain Free? Yes - Nurse 3 - General Ulcer D/C NN Start: 09/20/20 10:10 Freq: Status: Active Protocol: Activity Type Activity Date Activity User E-Sign Co-Sign Detail Recorded Client Recorded Date Recorded By Document 09/20/20 10:54 [facility] [id number] 09/20/20 10:55 [facility] 09/20/20 10:54 Wound Care Nurse 3 #13 L Plantar -Ulcer Cleansing Rinsed/ Irrigated with Saline -Foul Odor after Cleansing No -Primary Dressing Applied NonAdherent Contact Layer, Promogran -Primary Dressing Covered/Secured with Dry Gauze, Secured with Tape -Promogran 1 #12 R second toe lateral -Ulcer Cleansing Rinsed/ Irrigated with Saline -Foul Odor after Cleansing No -Primary Dressing Applied NonAdherent Contact Layer, Promogran -Primary Dressing Covered/Secured with Dry Gauze, Secured with Tape -Promogran 0 Treatment Response Procedure Tolerated Well Pain Scale: 0-10 Numeric Is Patient Pain Free? Yes - Visit Discharge Discharge Condition Stable Ambulatory Status Ambulatory Transportation Private Auto Wound debrided: Right second toe Type of Debridement: Excisional debridement Anesthesia Used: 4% Lidocaine Solution Depth: Down to and including healthy tissue, in the subcutaneous layer Percentage of wound debrided: 100 Instrument Used: 3mm curette Tissue Removed: Slough and devitalized tissue Severity: Fat Layer Exposed Amount of bleeding with debridement: Mild Bleeding Controlled with: Pressure Patient tolerated procedure well - Additional Wound Wound debrided: Left Plantar Type of Debridement: Excisional debridement Anesthesia Used: 5% Lidocaine Gel Depth: Down to and including healthy tissue, in the subcutaneous layer Percentage of wound debrided: 100 Instrument Used: 5mm curette Tissue Removed: Slough and devitalized tissue Severity: Fat Layer Exposed Amount of bleeding with debridement: Mild Bleeding Controlled with: Pressure Patient tolerated procedure: Patient tolerated procedure well Assessment/Plan Assessment: Recurrent right second toe ulcer due to chronic hammertoe deformity. Peripheral neuropathy. Acute Left Foot Ulcer Plan: Debridement done as documented above, procedure was well-tolerated. Continue Promogran daily with Adaptic over top to both ulcers. Gauze and tape over top. He was again advised to establish with a head banquet waiter/waitress due to his chronic hammertoes and deformities. Referred to the foot and ankle clinic. He has some bills to settle before being seen. He states that he is settling and should be able to get in soon. I do not believe we will be unable to establish permanent wound healing due to his deformity and Neuropathy. Continue compression stockings and leg elevation. His questions were answered and he was advised to call with any further questions or concerns. Follow-up in 2 weeks. This note was generated with [employer] dictation software. It may contain incorrect words, spelling, and punctuation that were not noted in checking the note before signing. [id number]: [id number] Caterina subq tissue 20 sq cm/<
[2020-10-04 11:41] VITALS: BP 127/81; PULSE 85; RESP 20; TEMP 36.6; BMI 40.1
--- NOTE | 2020-10-04 14:03 | PCM.WC.PN ---
(1) Ulcer of left foot with fat layer exposed Status: Chronic Code(s): L97.522 - Non-pressure chronic ulcer of other part of left foot with fat layer exposed (2) Lower extremity neuropathy Status: Chronic Code(s): G57.90 - Unspecified mononeuropathy of unspecified lower limb (3) Other hammer toe(s) (acquired), right foot Status: Chronic Code(s): M20.41 - Other hammer toe(s) (acquired), right foot (4) Pressure ulcer of toe, stage 2 Status: Chronic Qualifiers: Code(s): L89.892 - Pressure ulcer of other site, stage 2 Type of Wound Date of Service: 10/04/20 Chief Complaint: Left Foot Ulcer, Right Second Toe Ulcer History of Wound: Mr. Ferro Is currently being seen/managed here for right second toe ulcer. He however now presents with very left Plantar foot ulcer which was said to have started some days ago. He states that he was in his garage for a long time and subsequently noted blistering around the area with eventual opening. Denies any significant pain or drainage. History of neuropathy. Progress of Wound: No new concerns at this time. Yet to get in with podiatry. Minimal area left. - Physical Exam Vital Signs Temp Pulse Resp BP Pulse Ox 97.8 F 85 20 H 127/81 H 98 10/04/20 11:41 10/04/20 11:41 10/04/20 11:41 10/04/20 11:41 09/14/20 00:21 General: Alert, Oriented x3, Cooperative, No apparent distress HEENT: Atraumatic, Normocephalic Oral: Moist Mucosa Neck: Supple Lungs: Normal air movement Abdomen: Non Tender, Obese Extremities: No cyanosis Skin: Ulcer/ Wound Wound Measurements and Assessment WC - Nurse 1 - General Ulcer Measurement Start: 09/20/20 10:10 Freq: Status: Active Protocol: Activity Type Activity Date Activity User E-Sign Co-Sign Detail Recorded Client Recorded Date Recorded By Document 10/04/20 11:41 LORETO [id number] 10/04/20 11:47 DL 10/04/20 11:41 Wound Center Nurse 1 [Ulcer Assessment] #13 L Plantar -Current Size (cm) - Length 0.1 -Current Size (cm) - Width 0.1 -Current Size (cm) - Depth 0.1 -Total Square Cm 0.01 -Photo Taken No -Exudate Amt None Present -Wound Margin Thickened -Granulation Amt None Present (0 %) -Necrosis Amt Large (67-100%) -Necrotic Tissue Type Eschar -Structure Exposed N/A -Texture (Talisha-wound Skin Appearance) Callus -Moisture (Talisha-wound Skin Appearance Dry/Scaly ) -Color (Talisha-wound Skin Appearance) No Abnormality -Temperature (Talisha-wound Skin No Abnormality Appearance) (Pt Warm) -Tenderness on Palpation (Talisha-wound No Skin Appearance) -Ulcer Cleansing Rinsed/ Irrigated with Saline -Foul Odor after Cleansing No -Anesthetic Used 4% Lidocaine Solution #12 R second toe lateral -Current Size (cm) - Length 0.2 -Current Size (cm) - Width 0.2 -Current Size (cm) - Depth 0.2 -Total Square Cm 0.04 -Photo Taken No -Maximum Distance #2 (cm) 0.2 -Circular Undermining Yes -Exudate Amt None Present -Wound Margin Thickened -Granulation Amt Small (1-33%) -Granulation Quality [place] -Necrosis Amt Small (1-33%) -Necrotic Tissue Type Adherent Slough -Structure Exposed N/A -Texture (Talisha-wound Skin Appearance) Callus,Scarring -Moisture (Talisha-wound Skin Appearance Dry/Scaly ) -Color (Talisha-wound Skin Appearance) No Abnormality -Temperature (Talisha-wound Skin No Abnormality Appearance) (Pt Warm) -Tenderness on Palpation (Talisha-wound No Skin Appearance) -Ulcer Cleansing Rinsed/ Irrigated with Saline -Foul Odor after Cleansing No -Anesthetic Used 5% Lidocaine Gel WC - Nurse 2 - General Ulcer CM Notes Start: 09/20/20 10:10 Freq: Status: Active Protocol: Activity Type Activity Date Activity User E-Sign Co-Sign Detail Recorded Client Recorded Date Recorded By Document 10/04/20 12:27 MW [id number] 10/04/20 12:28 MW 10/04/20 12:27 Wound Center Nurse 2 [Procedure/Treatment] #13 L Plantar -Time 12:27 -Correct Patient Yes -Correct Side, Site, Position Yes -Correct Procedure Yes -Procedure Performed No -Post Debridement (cm) - Length 0 -Post Debridement (cm) - Width 0 -Post Debridement (cm) - Depth 0 -Total Square (Post) (cm) 0 -Wound/Ulcer Outcome Healed- Epithelialized #12 R second toe lateral -Time 12:27 -Correct Patient Yes -Correct Side, Site, Position Yes -Correct Procedure Yes -Procedure Performed No -Post Debridement (cm) - Length 0.1 -Post Debridement (cm) - Width 0.1 -Post Debridement (cm) - Depth 0.1 -Total Square (Post) (cm) 0.01 -Tunneling No -Undermining/Tunneling No -Circular Undermining No -Wound/Ulcer Outcome Not Healed -Ulcer Cleansing Not Cleansed -Bleeding Controlled with NA -Offloading No [See Physician Procedure note for Specifics] Pain Scale: 0-10 Numeric [Pain] -Is Patient Pain Free? Yes - Nurse 3 - General Ulcer D/C NN Start: 09/20/20 10:10 Freq: Status: Active Protocol: Activity Type Activity Date Activity User E-Sign Co-Sign Detail Recorded Client Recorded Date Recorded By Document 10/04/20 12:28 MW [id number] 10/04/20 12:29 MW 10/04/20 12:28 Wound Care Nurse 3 [Wound Dressing] #13 L Plantar -Ulcer Cleansing Not Cleansed -Foul Odor after Cleansing No -Negative Pressure Wound Therapy N/A -Primary Dressing Applied Mepilex Border -Mepilex Border 2 #12 R second toe lateral -Ulcer Cleansing Rinsed/ Irrigated with Saline -Foul Odor after Cleansing No -Negative Pressure Wound Therapy N/A -Primary Dressing Applied NonAdherent Contact Layer, Promogran -Primary Dressing Covered/Secured Dry Gauze, with Secured with Tape -Promogran 1 [Post Procedure Tolerated] -Treatment Response Procedure Tolerated Well Teaching: Wound Center [Wound Center Education] (Items with an * have Printed Materials Available- Please identify what is given to patient under the Teaching materials given to patient and caregiver Section. Dressing Your Wound -Person Taught Patient -Teaching Method Discussion, Demonstration -Response to teaching Verbalize understanding WC - Visit Discharge [Visit Discharge Information] -Discharge Condition Stable -Ambulatory Status Ambulatory -Transportation Private Auto -Accompanied by self -Medication Reconcilliation completed No & provided to patient/care provider -Clinical Summary of Care Provided Yes Musculoskeletal: No Muscle Wasting Neurological: Cranial nerves II-XII grossly intact Psych/Mental Status: Normal Affect Debridement Note Post-Debridement Measurements/Treatment - Nurse 2 - General Ulcer CM Notes Start: 09/20/20 10:10 Freq: Status: Active Protocol: Activity Type Activity Date Activity User E-Sign Co-Sign Detail Recorded Client Recorded Date Recorded By Document 09/20/20 10:27 MW [id number] 09/20/20 10:42 MW Document 10/04/20 12:27 MW [id number] 10/04/20 12:28 MW 09/20/20 10/04/20 10:27 12:27 Wound Center Nurse 2 #13 L Plantar -Time 10:28 12:27 -Correct Patient Yes Yes -Correct Side, Site, Position Yes Yes -Correct Procedure Yes Yes -Procedure Performed Yes No -Type of Procedure Debridement -Clinical Debridement Subcutaneous -Tissue Removed Subcutaneous -Post Debridement (cm) - Length 0.2 0 -Post Debridement (cm) - Width 1.0 0 -Post Debridement (cm) - Depth 0.1 0 -Total Square (Post) (cm) 0.20 0 -Area of Debridement (cm) - Length 0.2 -Area of Debridement (cm) - Width 1.0 -Total Square (Area) (cm) 0.20 -Tunneling No -Undermining/Tunneling No -Circular Undermining No -Wound/Ulcer Outcome Not Healed Healed- Epithelialized -Ulcer Cleansing Rinsed/ Irrigated with Saline -Foul Odor after Cleansing No -Bioengineered Tissue No -Bleeding Controlled with Pressure -Offloading No -Treatment Response Procedure Tolerated Well -Debridement - Subq, 1st 20sq cm Yes #12 R second toe lateral -Time 10:28 12:27 -Correct Patient Yes Yes -Correct Side, Site, Position Yes Yes -Correct Procedure Yes Yes -Procedure Performed Yes No -Type of Procedure Debridement -Clinical Debridement Subcutaneous -Tissue Removed Subcutaneous -Post Debridement (cm) - Length 0.4 0.1 -Post Debridement (cm) - Width 0.3 0.1 -Post Debridement (cm) - Depth 0.1 0.1 -Total Square (Post) (cm) 0.12 0.01 -Area of Debridement (cm) - Length 0.4 -Area of Debridement (cm) - Width 0.3 -Total Square (Area) (cm) 0.12 -Tunneling No No -Undermining/Tunneling No No -Circular Undermining No No -Wound/Ulcer Outcome Not Healed Not Healed -Ulcer Cleansing Rinsed/ Not Cleansed Irrigated with Saline -Foul Odor after Cleansing No -Bioengineered Tissue No -Bleeding Controlled with Pressure NA -Offloading No No -Treatment Response Procedure Tolerated Well -Debridement - Subq, 1st 20sq cm No Pain Scale: 0-10 Numeric Is Patient Pain Free? Yes Yes - Nurse 3 - General Ulcer D/C NN Start: 09/20/20 10:10 Freq: Status: Active Protocol: Activity Type Activity Date Activity User E-Sign Co-Sign Detail Recorded Client Recorded Date Recorded By Document 09/20/20 10:54 [facility] [id number] 09/20/20 10:55 BM Document 10/04/20 12:28 MW [id number] 10/04/20 12:29 MW 09/20/20 10/04/20 10:54 12:28 Wound Care Nurse 3 #13 L Plantar -Ulcer Cleansing Rinsed/ Not Cleansed Irrigated with Saline -Foul Odor after Cleansing No No -Negative Pressure Wound Therapy N/A -Primary Dressing Applied NonAdherent Mepilex Border Contact Layer, Promogran -Primary Dressing Covered/Secured with Dry Gauze, Secured with Tape -Mepilex Border 2 -Promogran 1 #12 R second toe lateral -Ulcer Cleansing Rinsed/ Rinsed/ Irrigated with Irrigated with Saline Saline -Foul Odor after Cleansing No No -Negative Pressure Wound Therapy N/A -Primary Dressing Applied NonAdherent NonAdherent Contact Layer, Contact Layer, Promogran Promogran -Primary Dressing Covered/Secured with Dry Gauze, Dry Gauze, Secured with Secured with Tape Tape -Promogran 0 1 Treatment Response Procedure Procedure Tolerated Well Tolerated Well Pain Scale: 0-10 Numeric Is Patient Pain Free? Yes Teaching: Wound Center Dressing Your Wound -Person Taught Patient -Teaching Method Discussion, Demonstration -Response to teaching Verbalize understanding WC - Visit Discharge Discharge Condition Stable Stable Ambulatory Status Ambulatory Ambulatory Transportation Private Auto Private Auto Accompanied by self Medication Reconcilliation completed & No provided to patient/care provider Clinical Summary of Care Provided Yes No debridement was completed today Assessment/Plan Active Problems Pressure ulcer of toe, stage 2 (Chronic) Lower extremity neuropathy (Chronic) Other hammer toe(s) (acquired), right foot (Chronic) Ulcer of left foot with fat layer exposed (Chronic) Assessment: Recurrent right second toe ulcer due to chronic hammertoe deformity. Peripheral neuropathy. Acute Left Foot Ulcer Plan: No debridement completed today. Right toe with minimal are and left plantar is healed. Continue Promogran daily with Adaptic over top right second toe. Adaptic and optifoam to left plantar. He was again advised to establish with a remedial masseur due to his chronic hammertoes and deformities. Referred to the foot and ankle clinic. He has some bills to settle before being seen. He states that he is settling and should be able to get in soon. I do not believe we will be unable to establish permanent wound healing due to his deformity and Neuropathy. Continue compression stockings and leg elevation. His questions were answered and he was advised to call with any further questions or concerns. Follow-up in 2 weeks. This note was generated with [employer] dictation software. It may contain incorrect words, spelling, and punctuation that were not noted in checking the note before signing. Office Visits / Consults: [id number] OV L3 Est
== END 2020-10-14 23:59 ==
LOC: WC 11:15
PROVIDERS: Visit Provider Internal Medicine
DX: L97.522 Non-pressure chronic ulcer of other part of left foot with fat layer exposed (principal); G57.90 Unspecified mononeuropathy of unspecified lower limb; M20.41 Other hammer toe(s) (acquired), right foot; L89.892 Pressure ulcer of other site, stage 2; G62.9 Polyneuropathy, unspecified
CPT/HCPCS: 11042; 99213; G0463

== ENCOUNTER → 2020-10-29 12:19 | Outpatient (CLI) | payer MEDICARE, SELFPAY ==
[2020-10-18 11:26] VITALS: BMI 40.1
[2020-10-29 15:14] LABS: Hematocrit 43.5 % (40-54); Hemoglobin 13.8 g/dL (13.0-16.5); Mean Corp Hgb Conc 31.7 g/dL (32-36); Mean Corpuscular Hgb 30.1 pg (27.0-32.0); Mean Platelet Vol. 11.3 fl (6.2-12.0); Platelet Count 278 K/mm3 (150-450); RBC Distribution Width CV 13.5 % (11.6-14.6); RBC Distribution Width SD 47.8 fl (35.1-43.9); Red Blood Count 4.58 M/mm3 (4.6-6.2); White Blood Count 5.3 K/mm3 (4.4-11.0)
[2020-10-29 15:47] LABS: ALB/GLOB Ratio 1.1 RATIO (0.9-2.4); AST(SGOT) 18 U/L (15-37); Alanine Aminotransfer ALT/SGPT 26 U/L (16-61); Albumin, Serum 3.7 g/dL (3.2-5.0); Alkaline Phosphatase 49 U/L (45-117); Anion Gap 6 (5-15); BUN 25 mg/dL (7-18); BUN/Creat Ratio 18.1 RATIO (10-20); Calcium,Total 9.3 mg/dL (8.5-10.1); Chloride 109 mmol/L (98-107); Creatinine, Serum 1.38 mg/dL (0.70-1.30); EST Glomerular Filtration Rate 55 mL/min (>60); Est Glom Filt Rate - Afr Amer 66 mL/min (>60); Globulin 3.4 g/dL (2.2-4.2); Glucose 88 mg/dL (74-106); Potassium 4.2 mmol/L (3.5-5.1); Protein, Total 7.1 g/dL (6.4-8.2); Sodium Level 142 mmol/L (136-145)
== END ==
PROVIDERS: PCP Nurse Practitioner Family; Referring Provider Physician Assistant; Visit Provider Physician Assistant
DX: L40.0 Psoriasis vulgaris (principal); Z79.899 Other long term (current) drug therapy
CPT/HCPCS: 36415; 80053; 85027; 86480

== ENCOUNTER 2020-11-08 11:15 | Outpatient (RCR) | payer MEDICARE, SELFPAY ==
[2020-10-15 00:21] VITALS: BP 127/81; PULSE 85; RESP 20; TEMP 36.6; O2SAT 98
[2020-10-18 11:26] VITALS: BP 120/78; PULSE 59; RESP 18; TEMP 36.3; BMI 40.1
--- NOTE | 2020-10-18 13:35 | PN.PCM_ITS ---
(1) Pressure ulcer of toe, stage 2 Status: Chronic Qualifiers: Code(s): L89.892 - Pressure ulcer of other site, stage 2 (2) Neuropathy of left lower extremity Status: Chronic Code(s): G57.92 - Unspecified mononeuropathy of left lower limb (3) Other hammer toe(s) (acquired), left foot Status: Chronic Code(s): M20.42 - Other hammer toe(s) (acquired), left foot (4) Other hammer toe(s) (acquired), right foot Status: Chronic Code(s): M20.41 - Other hammer toe(s) (acquired), right foot Type of Wound Date of Service: 10/18/20 Chief Complaint: Left Foot Ulcer, Right Second Toe Ulcer History of Wound: Mr. Ferro Is currently being seen/managed here for right second toe ulcer. He however now presents with very left Plantar foot ulcer which was said to have started some days ago. He states that he was in his garage for a long time and subsequently noted blistering around the area with eventual opening. Denies any significant pain or drainage. History of neuropathy. Progress of Wound: New area of blistering on the left plantar area and right second toe with some worsening. He denies chills, fever or feeling unwell. - Physical Exam Vital Signs Temp Pulse Resp BP Pulse Ox 97.4 F L 59 L 18 120/78 98 10/18/20 11:26 10/18/20 11:26 10/18/20 11:26 10/18/20 11:26 10/15/20 00:21 General: Alert, Oriented x3, Cooperative, No apparent distress HEENT: Atraumatic, Normocephalic Oral: Moist Mucosa Neck: Supple Lungs: Normal air movement Abdomen: Non Tender, Obese Extremities: No cyanosis Skin: Ulcer/ Wound Wound Measurements and Assessment WC - Nurse 1 - General Ulcer Measurement Start: 10/18/20 11:26 Freq: Status: Active Protocol: Activity Type Activity Date Activity User E-Sign Co-Sign Detail Recorded Client Recorded Date Recorded By Document 10/18/20 11:26 DL [id number] 10/18/20 11:37 DL 10/18/20 11:26 Wound Center Nurse 1 [Ulcer Assessment] #13 L Plantar -Current Size (cm) - Length 0.8 -Current Size (cm) - Width 0.3 -Current Size (cm) - Depth 0.1 -Total Square Cm 0.24 -Photo Taken No -Exudate Amt None Present -Wound Margin Thickened -Granulation Amt None Present (0 %) -Necrosis Amt Large (67-100%) -Necrotic Tissue Type Eschar -Structure Exposed N/A -Texture (Talisha-wound Skin Appearance) Localized Edema ,Scarring -Moisture (Talisha-wound Skin Appearance No Abnormality ) -Color (Talisha-wound Skin Appearance) No Abnormality -Temperature (Talisha-wound Skin No Abnormality Appearance) (Pt Warm) -Tenderness on Palpation (Talisha-wound No Skin Appearance) -Ulcer Cleansing Rinsed/ Irrigated with Saline -Foul Odor after Cleansing No -Anesthetic Used 4% Lidocaine Solution #12 R second toe lateral -Current Size (cm) - Length 0.1 -Current Size (cm) - Width 0.1 -Current Size (cm) - Depth 0.1 -Total Square Cm 0.01 -Photo Taken No -Exudate Amt None Present -Wound Margin Thickened -Granulation Amt Large (67-100%) -Granulation Quality Bunch -Necrosis Amt None Present (0 %) -Structure Exposed N/A -Texture (Talisha-wound Skin Appearance) Scarring -Moisture (Talisha-wound Skin Appearance Dry/Scaly ) -Color (Talisha-wound Skin Appearance) No Abnormality -Temperature (Talisha-wound Skin No Abnormality Appearance) (Pt Warm) -Tenderness on Palpation (Talisha-wound No Skin Appearance) -Ulcer Cleansing Rinsed/ Irrigated with Saline -Foul Odor after Cleansing No -Anesthetic Used 4% Lidocaine Solution WC - Nurse 2 - General Ulcer CM Notes Start: 10/18/20 11:26 Freq: Status: Active Protocol: Activity Type Activity Date Activity User E-Sign Co-Sign Detail Recorded Client Recorded Date Recorded By Document 10/18/20 12:20 MW [id number] 10/18/20 12:28 MW 10/18/20 12:20 Wound Center Nurse 2 [Procedure/Treatment] #13 L Plantar -Time 12:20 -Correct Patient Yes -Correct Side, Site, Position Yes -Correct Procedure Yes -Procedure Performed No -Post Debridement (cm) - Length 0 -Post Debridement (cm) - Width 0 -Post Debridement (cm) - Depth 0 -Total Square (Post) (cm) 0 -Wound/Ulcer Outcome Healed- Epithelialized #12 R second toe lateral -Time 12:21 -Correct Patient Yes -Correct Side, Site, Position Yes -Correct Procedure Yes -Procedure Performed Yes -Type of Procedure Debridement -Clinical Debridement Subcutaneous -Tissue Removed Subcutaneous -Post Debridement (cm) - Length 0.6 -Post Debridement (cm) - Width 0.5 -Post Debridement (cm) - Depth 0.1 -Total Square (Post) (cm) 0.30 -Area of Debridement (cm) - Length 0.6 -Area of Debridement (cm) - Width 0.5 -Total Square (Area) (cm) 0.30 -Tunneling No -Undermining/Tunneling No -Circular Undermining No -Wound/Ulcer Outcome Not Healed -Ulcer Cleansing Rinsed/ Irrigated with Saline -Foul Odor after Cleansing No -Bioengineered Tissue No -Bleeding Controlled with Pressure -Offloading No -Treatment Response Procedure Tolerated Well -Debridement - Subq, 1st 20sq cm Yes [See Physician Procedure note for Specifics] Pain Scale: 0-10 Numeric [Pain] -Is Patient Pain Free? Yes - Nurse 3 - General Ulcer D/C NN Start: 10/18/20 11:26 Freq: Status: Active Protocol: Activity Type Activity Date Activity User E-Sign Co-Sign Detail Recorded Client Recorded Date Recorded By Document 10/18/20 12:36 MW [id number] 10/18/20 12:37 MW 10/18/20 12:36 Wound Care Nurse 3 [Wound Dressing] #12 R second toe lateral -Ulcer Cleansing Rinsed/ Irrigated with Saline -Foul Odor after Cleansing No -Negative Pressure Wound Therapy N/A -Other Dressing promogran -Primary Dressing Covered/Secured Dry Gauze, with Secured with Tape [Post Procedure Tolerated] -Treatment Response Procedure Tolerated Well Pain Scale: 0-10 Numeric [Pain] -Is Patient Pain Free? Yes - Visit Discharge [Visit Discharge Information] -Discharge Condition Stable -Ambulatory Status Ambulatory -Transportation Private Auto -Accompanied by self -Medication Reconcilliation completed No & provided to patient/care provider -Clinical Summary of Care Provided Yes Musculoskeletal: No Muscle Wasting Neurological: Cranial nerves II-XII grossly intact Psych/Mental Status: Normal Affect Debridement Note Post-Debridement Measurements/Treatment - Nurse 2 - General Ulcer CM Notes Start: 02/04/21 11:26 Freq: Status: Active Protocol: Activity Type Activity Date Activity User E-Sign Co-Sign Detail Recorded Client Recorded Date Recorded By Document 10/18/20 12:20 MW [id number] 10/18/20 12:28 MW 10/18/20 12:20 Wound Center Nurse 2 #13 L Plantar -Time 12:20 -Correct Patient Yes -Correct Side, Site, Position Yes -Correct Procedure Yes -Procedure Performed No -Post Debridement (cm) - Length 0 -Post Debridement (cm) - Width 0 -Post Debridement (cm) - Depth 0 -Total Square (Post) (cm) 0 -Wound/Ulcer Outcome Healed- Epithelialized #12 R second toe lateral -Time 12:21 -Correct Patient Yes -Correct Side, Site, Position Yes -Correct Procedure Yes -Procedure Performed Yes -Type of Procedure Debridement -Clinical Debridement Subcutaneous -Tissue Removed Subcutaneous -Post Debridement (cm) - Length 0.6 -Post Debridement (cm) - Width 0.5 -Post Debridement (cm) - Depth 0.1 -Total Square (Post) (cm) 0.30 -Area of Debridement (cm) - Length 0.6 -Area of Debridement (cm) - Width 0.5 -Total Square (Area) (cm) 0.30 -Tunneling No -Undermining/Tunneling No -Circular Undermining No -Wound/Ulcer Outcome Not Healed -Ulcer Cleansing Rinsed/ Irrigated with Saline -Foul Odor after Cleansing No -Bioengineered Tissue No -Bleeding Controlled with Pressure -Offloading No -Treatment Response Procedure Tolerated Well -Debridement - Subq, 1st 20sq cm Yes Pain Scale: 0-10 Numeric Is Patient Pain Free? Yes - Nurse 3 - General Ulcer D/C NN Start: 10/18/20 11:26 Freq: Status: Active Protocol: Activity Type Activity Date Activity User E-Sign Co-Sign Detail Recorded Client Recorded Date Recorded By Document 10/18/20 12:36 MW [id number] 10/18/20 12:37 MW 10/18/20 12:36 Wound Care Nurse 3 #12 R second toe lateral -Ulcer Cleansing Rinsed/ Irrigated with Saline -Foul Odor after Cleansing No -Negative Pressure Wound Therapy N/A -Other Dressing promogran -Primary Dressing Covered/Secured with Dry Gauze, Secured with Tape Treatment Response Procedure Tolerated Well Pain Scale: 0-10 Numeric Is Patient Pain Free? Yes WC - Visit Discharge Discharge Condition Stable Ambulatory Status Ambulatory Transportation Private Auto Accompanied by self Medication Reconcilliation completed & No provided to patient/care provider Clinical Summary of Care Provided Yes Wound debrided: Right second toe Type of Debridement: Excisional debridement Anesthesia Used: 4% Lidocaine Solution Depth: Down to and including healthy tissue, in the subcutaneous layer Percentage of wound debrided: 100 Instrument Used: 3mm curette Tissue Removed: Slough and devitalized tissue Severity: Fat Layer Exposed Amount of bleeding with debridement: Mild Bleeding Controlled with: Pressure Patient tolerated procedure well Assessment/Plan Active Problems Pressure ulcer of toe, stage 2 (Chronic) Neuropathy of left lower extremity (Chronic) Other hammer toe(s) (acquired), right foot (Chronic) Other hammer toe(s) (acquired), left foot (Chronic) Assessment: Recurrent right second toe ulcer due to chronic hammertoe deformity. Peripheral neuropathy. Acute Left Foot Ulcer Plan: Debridement done as documented above, procedure was well tolerated. Continue Promogran daily with Adaptic over top to right second toe. Adaptic and optifoam to left plantar. He was out of supplies and applied nothing to the left plantar since his last visit. No open area to the left plantar but blistering noted. He was again advised to establish with a mental retardation aide due to his chronic hammertoes and deformities. Plans to establish at the foot and ankle clinic as soon as possible. He states that he has settled his bills. I do not believe we will be unable to establish permanent wound healing due to his deformity and Neuropathy. Continue compression stockings and leg elevation. His questions were answered and he was advised to call with any further questions or concerns. Follow-up in 1 week. This note was generated with [employer] software. It may contain incorrect words, spelling, and punctuation that were not noted in checking the note before signing. [id number]: [id number] Caterina subq tissue 20 sq cm/<
[2020-11-08 11:27] VITALS: BP 154/90; PULSE 78; RESP 18; TEMP 36.4; BMI 40.1
--- NOTE | 2020-11-08 13:00 | PN.PCM_ITS ---
(1) Pressure ulcer of toe, stage 2 Status: Chronic Qualifiers: Code(s): L89.892 - Pressure ulcer of other site, stage 2 (2) Neuropathy of left lower extremity Status: Chronic Code(s): G57.92 - Unspecified mononeuropathy of left lower limb (3) Other hammer toe(s) (acquired), left foot Status: Chronic Code(s): M20.42 - Other hammer toe(s) (acquired), left foot (4) Other hammer toe(s) (acquired), right foot Status: Chronic Code(s): M20.41 - Other hammer toe(s) (acquired), right foot Type of Wound Date of Service: 11/08/20 Chief Complaint: Left Foot Ulcer, Right Second Toe Ulcer History of Wound: Mr. Ferro Is currently being seen/managed here for right second toe ulcer. He however now presents with very left Plantar foot ulcer which was said to have started some days ago. He states that he was in his garage for a long time and subsequently noted blistering around the area with eventual opening. Denies any significant pain or drainage. History of neuropathy. Progress of Wound: No new concerns at this time. Established with podiatry and plan is for surgery. - Physical Exam Vital Signs Temp Pulse Resp BP Pulse Ox 97.6 F L 78 18 154/90 H 98 11/08/20 11:27 11/08/20 11:27 11/08/20 11:27 11/08/20 11:27 10/15/20 00:21 General: Alert, Oriented x3, Cooperative, No apparent distress HEENT: Atraumatic, Normocephalic Oral: Moist Mucosa Neck: Supple Lungs: Normal air movement Abdomen: Obese Extremities: No cyanosis Skin: Ulcer/ Wound Wound Measurements and Assessment WC - Nurse 1 - General Ulcer Measurement Start: 10/18/20 11:26 Freq: Status: Active Protocol: Activity Type Activity Date Activity User E-Sign Co-Sign Detail Recorded Client Recorded Date Recorded By Document 11/08/20 11:27 PL [id number] 11/08/20 11:40 PL 11/08/20 11:27 Wound Center Nurse 1 [Ulcer Assessment] #13 L Plantar -Combined with other wound No -Current Size (cm) - Length 0.5 -Current Size (cm) - Width 1.0 -Current Size (cm) - Depth 0.1 -Total Square Cm 0.50 -Photo Taken No -Epithelialization None Present -Tunneling No -Undermining/Tunneling No -Circular Undermining No -Granulation Amt None Present (0 %) -Slough/Fibrin Yes -Necrosis Amt Large (67-100%) -Necrotic Tissue Type Eschar -Texture (Talisha-wound Skin Appearance) Callus -Anesthetic Used 5% Lidocaine Gel #12 R second toe lateral -Current Size (cm) - Length 0.1 -Current Size (cm) - Width 0.1 -Current Size (cm) - Depth 0.1 -Total Square Cm 0.01 -Epithelialization None Present -Tunneling No -Undermining/Tunneling No -Circular Undermining No -Exudate Amt None Present -Granulation Amt Large (67-100%) -Granulation Quality Brantley -Slough/Fibrin No -Ulcer Cleansing Rinsed/ Irrigated with Saline -Foul Odor after Cleansing No WC - Nurse 2 - General Ulcer CM Notes Start: 10/18/20 11:26 Freq: Status: Active Protocol: Activity Type Activity Date Activity User E-Sign Co-Sign Detail Recorded Client Recorded Date Recorded By Document 11/08/20 11:55 MW [id number] 11/08/20 12:04 MW 11/08/20 11:55 Wound Center Nurse 2 [Procedure/Treatment] #13 L Plantar -Time 12:01 -Correct Patient Yes -Correct Side, Site, Position Yes -Correct Procedure Yes -Procedure Performed No -Post Debridement (cm) - Length 0 -Post Debridement (cm) - Width 0 -Post Debridement (cm) - Depth 0 -Total Square (Post) (cm) 0 -Tunneling No -Undermining/Tunneling No -Circular Undermining No -Wound/Ulcer Outcome Healed- Epithelialized -Ulcer Cleansing Rinsed/ Irrigated with Saline -Foul Odor after Cleansing No -Bioengineered Tissue No -Bleeding Controlled with NA #12 R second toe lateral -Time 11:56 -Correct Patient Yes -Correct Side, Site, Position Yes -Correct Procedure Yes -Procedure Performed Yes -Type of Procedure Debridement -Clinical Debridement Subcutaneous -Tissue Removed Subcutaneous -Post Debridement (cm) - Length 0.2 -Post Debridement (cm) - Width 0.2 -Post Debridement (cm) - Depth 0.1 -Total Square (Post) (cm) 0.04 -Area of Debridement (cm) - Length 0.2 -Area of Debridement (cm) - Width 0.2 -Total Square (Area) (cm) 0.04 -Tunneling No -Undermining/Tunneling No -Circular Undermining No -Wound/Ulcer Outcome Not Healed -Ulcer Cleansing Rinsed/ Irrigated with Saline -Foul Odor after Cleansing No -Bioengineered Tissue No -Bleeding Controlled with Pressure -Offloading No -Treatment Response Procedure Tolerated Well -Debridement - Subq, 1st 20sq cm Yes [See Physician Procedure note for Specifics] Pain Scale: 0-10 Numeric [Pain] -Is Patient Pain Free? Yes WC - Nurse 3 - General Ulcer D/C NN Start: 10/18/20 11:26 Freq: Status: Active Protocol: Activity Type Activity Date Activity User E-Sign Co-Sign Detail Recorded Client Recorded Date Recorded By Document 11/08/20 12:05 MW [id number] 11/08/20 12:06 MW 11/08/20 12:05 Wound Care Nurse 3 [Wound Dressing] #12 R second toe lateral -Ulcer Cleansing Rinsed/ Irrigated with Saline -Foul Odor after Cleansing No -Negative Pressure Wound Therapy N/A -Primary Dressing Applied NonAdherent Contact Layer, Promogran -Primary Dressing Covered/Secured Dry Gauze, with Secured with Tape -Promogran 1 [Post Procedure Tolerated] -Treatment Response Procedure Tolerated Well Pain Scale: 0-10 Numeric [Pain] -Is Patient Pain Free? Yes Teaching: Wound Center [Wound Center Education] (Items with an * have Printed Materials Available- Please identify what is given to patient under the Teaching materials given to patient and caregiver Section. Dressing Your Wound -Person Taught Patient -Teaching Method Discussion, Demonstration -Response to teaching Verbalize understanding WC - Visit Discharge [Visit Discharge Information] -Discharge Condition Stable -Ambulatory Status Ambulatory -Transportation Private Auto -Accompanied by self -Medication Reconcilliation completed No & provided to patient/care provider -Clinical Summary of Care Provided Yes Musculoskeletal: No Muscle Wasting Neurological: Cranial nerves II-XII grossly intact Psych/Mental Status: Normal Affect Debridement Note Post-Debridement Measurements/Treatment WC - Nurse 2 - General Ulcer CM Notes Start: 10/18/20 11:26 Freq: Status: Active Protocol: Activity Type Activity Date Activity User E-Sign Co-Sign Detail Recorded Client Recorded Date Recorded By Document 10/18/20 12:20 MW [id number] 10/18/20 12:28 MW Document 11/08/20 11:55 MW [id number] 11/08/20 12:04 MW 10/18/20 11/08/20 12:20 11:55 Wound Center Nurse 2 #13 L Plantar -Time 12:20 12:01 -Correct Patient Yes Yes -Correct Side, Site, Position Yes Yes -Correct Procedure Yes Yes -Procedure Performed No No -Post Debridement (cm) - Length 0 0 -Post Debridement (cm) - Width 0 0 -Post Debridement (cm) - Depth 0 0 -Total Square (Post) (cm) 0 0 -Tunneling No -Undermining/Tunneling No -Circular Undermining No -Wound/Ulcer Outcome Healed- Healed- Epithelialized Epithelialized -Ulcer Cleansing Rinsed/ Irrigated with Saline -Foul Odor after Cleansing No -Bioengineered Tissue No -Bleeding Controlled with NA #12 R second toe lateral -Time 12:21 11:56 -Correct Patient Yes Yes -Correct Side, Site, Position Yes Yes -Correct Procedure Yes Yes -Procedure Performed Yes Yes -Type of Procedure Debridement Debridement -Clinical Debridement Subcutaneous Subcutaneous -Tissue Removed Subcutaneous Subcutaneous -Post Debridement (cm) - Length 0.6 0.2 -Post Debridement (cm) - Width 0.5 0.2 -Post Debridement (cm) - Depth 0.1 0.1 -Total Square (Post) (cm) 0.30 0.04 -Area of Debridement (cm) - Length 0.6 0.2 -Area of Debridement (cm) - Width 0.5 0.2 -Total Square (Area) (cm) 0.30 0.04 -Tunneling No No -Undermining/Tunneling No No -Circular Undermining No No -Wound/Ulcer Outcome Not Healed Not Healed -Ulcer Cleansing Rinsed/ Rinsed/ Irrigated with Irrigated with Saline Saline -Foul Odor after Cleansing No No -Bioengineered Tissue No No -Bleeding Controlled with Pressure Pressure -Offloading No No -Treatment Response Procedure Procedure Tolerated Well Tolerated Well -Debridement - Subq, 1st 20sq cm Yes Yes Pain Scale: 0-10 Numeric Is Patient Pain Free? Yes Yes WC - Nurse 3 - General Ulcer D/C NN Start: 10/18/20 11:26 Freq: Status: Active Protocol: Activity Type Activity Date Activity User E-Sign Co-Sign Detail Recorded Client Recorded Date Recorded By Document 10/18/20 12:36 MW [id number] 10/18/20 12:37 MW Document 11/08/20 12:05 MW [id number] 11/08/20 12:06 MW 10/18/20 11/08/20 12:36 12:05 Wound Care Nurse 3 #12 R second toe lateral -Ulcer Cleansing Rinsed/ Rinsed/ Irrigated with Irrigated with Saline Saline -Foul Odor after Cleansing No No -Negative Pressure Wound Therapy N/A N/A -Primary Dressing Applied NonAdherent Contact Layer, Promogran -Other Dressing promogran -Primary Dressing Covered/Secured with Dry Gauze, Dry Gauze, Secured with Secured with Tape Tape -Promogran 1 Treatment Response Procedure Procedure Tolerated Well Tolerated Well Pain Scale: 0-10 Numeric Is Patient Pain Free? Yes Yes Teaching: Wound Center Dressing Your Wound -Person Taught Patient -Teaching Method Discussion, Demonstration -Response to teaching Verbalize understanding WC - Visit Discharge Discharge Condition Stable Stable Ambulatory Status Ambulatory Ambulatory Transportation Private Auto Private Auto Accompanied by self self Medication Reconcilliation completed & No No provided to patient/care provider Clinical Summary of Care Provided Yes Yes Wound debrided: Right second toe Type of Debridement: Excisional debridement Anesthesia Used: 4% Lidocaine Solution Depth: Down to and including healthy tissue, in the subcutaneous layer Percentage of wound debrided: 100 Instrument Used: - - 1 mm curette Tissue Removed: Devitalized tissue Severity: Fat Layer Exposed Amount of bleeding with debridement: Mild Bleeding Controlled with: Pressure Patient tolerated procedure well Assessment/Plan Active Problems Pressure ulcer of toe, stage 2 (Chronic) Neuropathy of left lower extremity (Chronic) Other hammer toe(s) (acquired), right foot (Chronic) Other hammer toe(s) (acquired), left foot (Chronic) Assessment: Recurrent right second toe ulcer due to chronic hammertoe deformity. Peripheral neuropathy. Acute Left Foot Ulcer Plan: Debridement done as documented above, procedure was well tolerated. Continue Promogran daily with Adaptic over top to right second toe. Adaptic and optifoam to left plantar. Has established with podiatry and plan is for surgery. No scheduled date yet. Continue compression stockings and leg elevation. His questions were answered and he was advised to call with any further questions or concerns. Follow-up in 3 weeks. This note was generated with [employer] software. It may contain incorrect words, spelling, and punctuation that were not noted in checking the note before signing. [id number]: [id number] Caterina subq tissue 20 sq cm/<
== END 2020-11-11 23:59 ==
LOC: WC 11:15
PROVIDERS: Visit Provider Internal Medicine
DX: L89.892 Pressure ulcer of other site, stage 2 (principal); G57.92 Unspecified mononeuropathy of left lower limb; M20.42 Other hammer toe(s) (acquired), left foot; M20.41 Other hammer toe(s) (acquired), right foot; G62.9 Polyneuropathy, unspecified
CPT/HCPCS: 11042

== ENCOUNTER 2020-11-29 11:30 | Outpatient (RCR) | payer MEDICARE, SELFPAY ==
[2020-11-12 00:20] VITALS: BP 154/90; PULSE 78; RESP 18; TEMP 36.4; O2SAT 98
[2020-11-29 11:47] VITALS: BP 125/78; PULSE 82; RESP 18; TEMP 36.9; BMI 40.1
--- NOTE | 2020-11-29 12:04 | PN.PCM_ITS ---
(1) Pressure ulcer of toe, stage 2 Status: Chronic Qualifiers: Code(s): L89.892 - Pressure ulcer of other site, stage 2 (2) Neuropathy of left lower extremity Status: Chronic Code(s): G57.92 - Unspecified mononeuropathy of left lower limb (3) Other hammer toe(s) (acquired), right foot Status: Chronic Code(s): M20.41 - Other hammer toe(s) (acquired), right foot Type of Wound Date of Service: 11/29/20 Chief Complaint: Left Foot Ulcer, Right Second Toe Ulcer History of Wound: Mr. Ferro Is currently being seen/managed here for right second toe ulcer. He however now presents with very left Plantar foot ulcer which was said to have started some days ago. He states that he was in his garage for a long time and subsequently noted blistering around the area with eventual opening. Denies any significant pain or drainage. History of neuropathy. Progress of Wound: No new concerns at this time. Right second toe ulcer is healed. - Physical Exam Vital Signs Temp Pulse Resp BP Pulse Ox 98.5 F 82 18 125/78 H 98 11/29/20 11:47 11/29/20 11:47 11/29/20 11:47 11/29/20 11:47 11/12/20 00:20 General: Alert, Oriented x3, Cooperative, No apparent distress HEENT: Atraumatic, Normocephalic Oral: Moist Mucosa Neck: Supple Lungs: Normal air movement Abdomen: Obese Extremities: No cyanosis Skin: Ulcer/ Wound Wound Measurements and Assessment WC - Nurse 1 - General Ulcer Measurement Start: 11/29/20 11:44 Freq: Status: Active Protocol: Activity Type Activity Date Activity User E-Sign Co-Sign Detail Recorded Client Recorded Date Recorded By Document 11/29/20 11:47 DL [id number] 11/29/20 11:52 DL 11/29/20 11:47 Wound Center Nurse 1 [Ulcer Assessment] #12 R second toe lateral -Current Size (cm) - Length 0.2 -Current Size (cm) - Width 0.2 -Current Size (cm) - Depth 0.1 -Total Square Cm 0.04 -Photo Taken No -Exudate Amt Small -Exudate Type Serosanguineous -Wound Margin Distinct, Outline Attached -Granulation Amt Small (1-33%) -Granulation Quality Red -Necrosis Amt Small (1-33%) -Necrotic Tissue Type Adherent Slough -Structure Exposed N/A -Texture (Talisha-wound Skin Appearance) No Abnormality -Moisture (Talisha-wound Skin Appearance No Abnormality ) -Color (Talisha-wound Skin Appearance) No Abnormality -Temperature (Talisha-wound Skin No Abnormality Appearance) (Pt Warm) -Tenderness on Palpation (Talisha-wound No Skin Appearance) -Ulcer Cleansing Rinsed/ Irrigated with Saline -Foul Odor after Cleansing No -Anesthetic Used 4% Lidocaine Solution - Nurse 2 - General Ulcer CM Notes Start: 11/29/20 11:44 Freq: Status: Active Protocol: Activity Type Activity Date Activity User E-Sign Co-Sign Detail Recorded Client Recorded Date Recorded By Document 11/29/20 11:58 MW [id number] 11/29/20 11:59 MW 11/29/20 11:58 Wound Center Nurse 2 [Procedure/Treatment] -Time 11:58 -Correct Patient Yes -Correct Side, Site, Position Yes -Correct Procedure Yes -Procedure Performed No -Post Debridement (cm) - Length 0 -Post Debridement (cm) - Width 0 -Post Debridement (cm) - Depth 0 -Total Square (Post) (cm) 0 -Wound/Ulcer Outcome Healed- Epithelialized [See Physician Procedure note for Specifics] Pain Scale: 0-10 Numeric [Pain] -Is Patient Pain Free? Yes Musculoskeletal: No Muscle Wasting Neurological: Cranial nerves II-XII grossly intact Psych/Mental Status: Normal Affect Debridement Note Post-Debridement Measurements/Treatment - Nurse 2 - General Ulcer CM Notes Start: 11/29/20 11:44 Freq: Status: Active Protocol: Activity Type Activity Date Activity User E-Sign Co-Sign Detail Recorded Client Recorded Date Recorded By Document 11/29/20 11:58 MW [id number] 11/29/20 11:59 MW 11/29/20 11:58 Wound Center Nurse 2 #12 R second toe lateral -Time 11:58 -Correct Patient Yes -Correct Side, Site, Position Yes -Correct Procedure Yes -Procedure Performed No -Post Debridement (cm) - Length 0 -Post Debridement (cm) - Width 0 -Post Debridement (cm) - Depth 0 -Total Square (Post) (cm) 0 -Wound/Ulcer Outcome Healed- Epithelialized Pain Scale: 0-10 Numeric Is Patient Pain Free? Yes No debridement was completed today Assessment/Plan Assessment: Recurrent right second toe ulcer due to chronic hammertoe deformity. Peripheral neuropathy. Acute Left Foot Ulcer Plan: Healed. No new concerns at this time. Keep area covered/protected. He was advised to use postop shoes provided by podiatry for offloading. He is currently not doing so. Keep area covered daily with [employer]. Has established with podiatry and plan is for surgery. No scheduled date yet. Continue compression stockings and leg elevation. His questions were answered and he was advised to call with any further questions or concerns. Discharge from the wound clinic. This note was generated with [employer] dictation software. It may contain incorrect words, spelling, and punctuation that were not noted in checking the note before signing. Office Visits / Consults: [id number] OV L3 Est
== END 2020-12-12 23:59 ==
LOC: WC 11:30
PROVIDERS: Visit Provider Internal Medicine
DX: L89.892 Pressure ulcer of other site, stage 2 (principal); G57.92 Unspecified mononeuropathy of left lower limb; M20.41 Other hammer toe(s) (acquired), right foot; G62.9 Polyneuropathy, unspecified
CPT/HCPCS: 99213; G0463

== ENCOUNTER → 2021-01-28 14:45 | Outpatient (CLI) | payer MEDICARE, SELFPAY ==
[2021-01-28 17:31] LABS: Absolute Lymphocyte Count 1.18 X10^3/uL (0.83-4.51); Absolute Neutrophil Count 4.6 X10^3/uL (2.0-7.7); Basophil# 0.06 X10^3/uL; Basophil% 0.9 % (0-1); Eosinophil# 0.18 X10^3/uL; Eosinophils% 2.7 % (0-5); Hematocrit 43.1 % (40-54); Hemoglobin 13.9 g/dL (13.0-16.5); Lymphocyte # 1.18 X10^3/ul (0.83-4.51); Lymphocyte % 17.6 % (19-41); Mean Corp Hgb Conc 32.3 g/dL (32-36); Mean Corpuscular Hgb 30.7 pg (27.0-32.0); Mean Corpuscular Volume 95.1 fL (80-94); Mean Platelet Vol. 10.7 fl (6.2-12.0); Monocyte# 0.74 X10^3/uL; NRBC Flagged by Analyzer 0 % (0-5); Neutrophil # 4.55 X10^3/uL (2.7-7.7); Neutrophil % 67.7 % (47-70); Platelet Count 315 K/mm3 (150-450); RBC Distribution Width CV 13.8 % (11.6-14.6); RBC Distribution Width SD 48.5 fl (35.1-43.9); Red Blood Count 4.53 M/mm3 (4.6-6.2); White Blood Count 6.7 K/mm3 (4.4-11.0)
[2021-01-28 18:24] LABS: ALB/GLOB Ratio 0.9 RATIO (0.9-2.4); AST(SGOT) 20 U/L (15-37); Alanine Aminotransfer ALT/SGPT 24 U/L (16-61); Albumin, Serum 3.4 g/dL (3.2-5.0); Alkaline Phosphatase 46 U/L (45-117); Anion Gap 4 (5-15); BUN 20 mg/dL (7-18); BUN/Creat Ratio 14.8 RATIO (10-20); Calcium,Total 8.6 mg/dL (8.5-10.1); Chloride 107 mmol/L (98-107); Creatinine, Serum 1.35 mg/dL (0.70-1.30); EST Glomerular Filtration Rate 56 mL/min (>60); Est Glom Filt Rate - Afr Amer 68 mL/min (>60); Globulin 3.8 g/dL (2.2-4.2); Glucose 77 mg/dL (74-106); Hemoglobin A1c 5.7 % (3.8-5.6); Potassium 3.7 mmol/L (3.5-5.1); Protein, Total 7.2 g/dL (6.4-8.2); Sodium Level 142 mmol/L (136-145)
== END ==
PROVIDERS: PCP Nurse Practitioner Family; Referring Provider Podiatrist; Visit Provider Podiatrist
DX: L98.499 Non-pressure chronic ulcer of skin of other sites with unspecified severity (principal)
CPT/HCPCS: 36415; 80053; 83036; 85025

== ENCOUNTER → 2021-02-19 10:56 | Outpatient (CLI) | payer MEDICARE, SELFPAY ==
--- NOTE | 2021-02-19 10:59 | ART_ITS ---
Reason For Study: PVD Procedure A bilateral lower extremity continuous wave Doppler with analog waveform analysis,segmental pressures,and ankle brachial indexes without exercise. Left Segmental Pressures Left brachial= 121mmHg. Left posterior tibial artery = 161mmHg. Left dorsalis pedis artery = 152mmHg. The left dorsalis pedis waveforms are triphasic. The left posterior tibial artery waveforms are triphasic. Right Segmental Pressures Right brachial= 125mmHg. Right posterior tibial artery = 158mmHg. Right dorsalis pedis artery = 150mmHg. The right dorsalis pedis waveforms are triphasic. The right posterior tibial artery waveforms are triphasic. Indices The right ankle brachial index by the dorsalis pedis is 1.20. The right ankle brachial index by the posterior tibial artery is 1.26. The left ankle brachial index by the dorsalis pedis is 1.22. The left ankle brachial index by the posterior tibial artery is 1.29. VL/Lower Ext Art Exam w/o Exercis Interpretation Summary Triphasic Doppler waveforms are noted at ankle level bilaterally. Pulse-volume recordings appear satisfactory at all levels bilaterally, including low-thigh, calf, ankle, and d igital levels. Resting ankle-brachial indices are normal bilaterally. There is no evidence of significant arterial occlusive disease in the lower ext remities bilaterally. Ordering Physician: Rosalina Ruelas Referring Physician: Mia England Performed By: Rufina Ndiaye RVT and Student
== END ==
PROVIDERS: PCP Nurse Practitioner Family; Referring Provider Podiatrist; Visit Provider Podiatrist
DX: I73.89 Other specified peripheral vascular diseases (principal); L97.512 Non-pressure chronic ulcer of other part of right foot with fat layer exposed; L97.522 Non-pressure chronic ulcer of other part of left foot with fat layer exposed
CPT/HCPCS: 93923

== ENCOUNTER → 2021-06-17 14:04 | Outpatient (CLI) | payer MEDICARE, SELFPAY ==
[2021-06-17 17:55] LABS: Absolute Lymphocyte Count 1.43 X10^3/uL (0.83-4.51); Absolute Neutrophil Count 4.6 X10^3/uL (2.0-7.7); Basophil# 0.06 X10^3/uL; Basophil% 0.9 % (0-1); Eosinophil# 0.14 X10^3/uL; Hematocrit 42.6 % (40-54); Hemoglobin 13.7 g/dL (13.0-16.5); Lymphocyte # 1.43 X10^3/ul (0.83-4.51); Lymphocyte % 20.7 % (19-41); Mean Corp Hgb Conc 32.2 g/dL (32-36); Mean Corpuscular Hgb 31.1 pg (27.0-32.0); Mean Corpuscular Volume 96.6 fL (80-94); Monocyte# 0.66 X10^3/uL; Monocyte% 9.6 % (0-10); NRBC Flagged by Analyzer 0 % (0-5); Neutrophil # 4.59 X10^3/uL (2.7-7.7); Neutrophil % 66.4 % (47-70); Platelet Count 291 K/mm3 (150-450); RBC Distribution Width CV 14.2 % (11.6-14.6); RBC Distribution Width SD 50.9 fl (35.1-43.9); Red Blood Count 4.41 M/mm3 (4.6-6.2); White Blood Count 6.9 K/mm3 (4.4-11.0)
[2021-06-17 18:25] LABS: ALB/GLOB Ratio 0.8 RATIO (0.9-2.4); AST(SGOT) 23 U/L (15-37); Alanine Aminotransfer ALT/SGPT 30 U/L (16-61); Albumin, Serum 3.2 g/dL (3.2-5.0); Alkaline Phosphatase 42 U/L (45-117); Anion Gap 7 (5-15); BUN 27 mg/dL (7-18); Chloride 109 mmol/L (98-107); Creatinine, Serum 1.35 mg/dL (0.70-1.30); EST Glomerular Filtration Rate 56 mL/min (>60); Est Glom Filt Rate - Afr Amer 68 mL/min (>60); Globulin 3.9 g/dL (2.2-4.2); Glucose 95 mg/dL (74-106); Potassium 4.3 mmol/L (3.5-5.1); Protein, Total 7.1 g/dL (6.4-8.2); Sodium Level 141 mmol/L (136-145)
[2021-06-17 18:28] LABS: Hemoglobin A1c 5.7 % (3.8-5.6)
== END ==
PROVIDERS: PCP Family Medicine; Referring Provider Family Medicine; Visit Provider Family Medicine
DX: Z01.818 Encounter for other preprocedural examination (principal)
CPT/HCPCS: 36415; 80053; 83036; 85025

== ENCOUNTER → 2021-07-30 10:35 | Outpatient (CLI) | payer MEDICARE, SELFPAY ==
[2021-07-30 12:52] LABS: Absolute Lymphocyte Count 1.44 X10^3/uL (0.83-4.51); Absolute Neutrophil Count 3.1 X10^3/uL (2.0-7.7); Basophil# 0.07 X10^3/uL; Basophil% 1.3 % (0-1); Eosinophil# 0.11 X10^3/uL; Hematocrit 44.4 % (40-54); Hemoglobin 14.4 g/dL (13.0-16.5); Lymphocyte # 1.44 X10^3/ul (0.83-4.51); Lymphocyte % 25.9 % (19-41); Mean Corp Hgb Conc 32.4 g/dL (32-36); Mean Corpuscular Hgb 31.2 pg (27.0-32.0); Mean Corpuscular Volume 96.1 fL (80-94); Mean Platelet Vol. 10.9 fl (6.2-12.0); Monocyte# 0.84 X10^3/uL; Monocyte% 15.1 % (0-10); NRBC Flagged by Analyzer 0 % (0-5); Neutrophil % 55.5 % (47-70); Platelet Count 310 K/mm3 (150-450); RBC Distribution Width CV 14.6 % (11.6-14.6); RBC Distribution Width SD 51.8 fl (35.1-43.9); Red Blood Count 4.62 M/mm3 (4.6-6.2); White Blood Count 5.6 K/mm3 (4.4-11.0)
[2021-07-30 13:26] LABS: ALB/GLOB Ratio 0.9 RATIO (0.9-2.4); AST(SGOT) 26 U/L (15-37); Alanine Aminotransfer ALT/SGPT 31 U/L (16-61); Albumin, Serum 3.7 g/dL (3.2-5.0); Alkaline Phosphatase 51 U/L (45-117); Anion Gap 5 (5-15); BUN 28 mg/dL (7-18); BUN/Creat Ratio 19.9 RATIO (10-20); Calcium,Total 9.2 mg/dL (8.5-10.1); Chloride 107 mmol/L (98-107); Creatinine, Serum 1.41 mg/dL (0.70-1.30); EST Glomerular Filtration Rate 53 mL/min (>60); Est Glom Filt Rate - Afr Amer 65 mL/min (>60); Globulin 3.9 g/dL (2.2-4.2); Glucose 106 mg/dL (74-106); Potassium 3.9 mmol/L (3.5-5.1); Protein, Total 7.6 g/dL (6.4-8.2); Sodium Level 141 mmol/L (136-145)
== END ==
PROVIDERS: PCP Family Medicine; Referring Provider Family Medicine; Visit Provider Family Medicine
DX: Z01.818 Encounter for other preprocedural examination (principal)
CPT/HCPCS: 36415; 80053; 85025

== ENCOUNTER 2021-08-09 07:12 | Inpatient (IN) | payer MEDICARE, SELFPAY ==
--- NOTE | 2021-08-06 15:20 | CASEMGMT ---
SW called pt as it has been brought to SW attention that pt may need to consider SNF placement at discharge. Message left for pt to call SW. RUTHY Pino
[2021-08-09] VITALS (11 sets, daily range): BP systolic 89–134; BP diastolic 55–84; PULSE 63–100; RESP 16–20; TEMP 35.8–37.3; O2SAT 92–98; BMI 38.8
--- NOTE | 2021-08-09 07:00 | RAD_ITS ---
STUDY: X-RAY - RIGHT FOOT CLINICAL: Male, 66 years old. Hammertoe repair. Intraoperative digital documentation images. TECHNIQUE: 4 intraoperative digital documentation images view(s) of the foot. COMPARISON: None. FINDINGS: 4 intraoperative digital documentation images show fusion at the second PIP joint. Moderate to marked osteoarthritic changes are also noted. Total exposure time was 39 seconds. Longest exposure was 9 seconds. Total DAP was cGy/cm2. Total Air Kerma was 0.2166 mGy. RAD/Foot 2 Views IMPRESSION: Intraoperative digital documentation images as described. Electronically Signed: Thee Guadarrama MD at 9:56 EST , Service support ,
--- NOTE | 2021-08-09 07:24 | PCM.HP.STD ---
HPI - General HPI Narrative RAYO SAMANIEGO, is a 66 M (significant past medical history of back pain, neuropathy, psoriasis, asthma, COPD, narcolepsy, history of gout, prostate disease) who underwent curative surgery including hammertoe correction with arthrodesis for treatment of chronic recurrent distal right second toe ulceration. He has neuropathy. He is unable to demonstrate ability to maintain appropriate weightbearing status and has ongoing memory loss. Therefore residential facility placement will be attempted after discussion with the patient and his family. [facility] Medical History (Updated 08/09/21 @ 09:[address] Rosalina Ruelas, DPRoyal) Arthritis Back pain Blackout COPD (chronic obstructive pulmonary disease) CPAP (continuous positive airway pressure) dependence Depression Heartburn History of stress test Narcolepsy Non-smoker Pain Prostate disease Psoriasis Shortness of breath on exertion Wears dentures Wears glasses Home Medications allopurinol 100 mg PO DAILY 08/11/17 [History Last Taken 08/08/21] aspirin 81 mg PO DAILY@0800 08/11/17 [History Last Taken Unknown] budesonide-formoterol [Symbicort 160/4.5 Mcg Inhaler (SP)] 2 puff INHALATION DAILY PRN 08/11/17 [History Last Taken 08/08/21] citalopram 40 mg PO DAILY 08/11/17 [History Last Taken 08/08/21] docusate sodium [Colace] 100 mg PO DAILY 08/11/17 [History Last Taken 08/08/21] gabapentin 600 mg PO TID 08/11/17 [History Last Taken 08/08/21] modafinil 100 mg PO DAILY 08/11/17 [History Last Taken 08/08/21] tamsulosin [Flomax] 0.4 mg PO QHS 08/11/17 [History Last Taken 08/08/21] tizanidine 4 mg PO PRN PRN 08/11/17 [History Last Taken Unknown] fluticasone propion-salmeterol [Advair 250-50 Diskus] 1 ea IH DAILY PRN PRN 04/30/18 [History Last Taken 08/08/21] fenofibrate 160 mg PO DAILY 06/26/21 [History Last Taken 08/08/21] meloxicam [Mobic] 15 mg PO DAILY 06/26/21 [History Last Taken 08/08/21] paroxetine HCl [Paxil] 20 mg PO DAILY 06/26/21 [History Last Taken 08/08/21] Allergy/AdvReac Type Severity Reaction Status Date / Time No Known Allergies Allergy Verified 08/09/21 06:55 Surgical History (Updated 06/26/21 @ 14:31 by Betsey Araiza) Hx of colonoscopy Hx of foot surgery Hx of left cataract extraction Hx of right cataract extraction Social History Smoking Status: Never smoker ROS Constitutional Constitutional: Denies chills, fatigue or fever(s) Cardiovascular Cardiovascular: Denies chest pain Respiratory/Chest Respiratory/Chest: Denies cough Musculoskeletal Musculoskeletal: Reports numbness Integumentary Integumentary: Reports skin ulcer Neurologic Neurologic: Reports paresthesias Hematologic/Lymphatic Hematologic/Lymphatic: Denies easy bleeding Allergic/Immunologic Allergic/Immunologic: Reports asthma Vital Signs Vital Signs Vital Signs: 08/09/21 07:07 Temperature 96.5 F L Temperature Source Temporal Pulse Rate 63 Respiratory Rate 16 Respiratory Pattern Normal Blood Pressure 134/83 H Blood Pressure Mean 100 Blood Pressure Source Monitor Blood Pressure Position Semi-Fowlers Blood Pressure Location Left Arm Pulse Ox 97 Oxygen Delivery Method Room Air Weight Weight: 122.7 kg Body Mass Index (BMI) 38.8 Physical Exam Const alert and oriented x3 General Appearance: cooperative HEENT normocephalic Eyes EOMs intact bilaterally Resp Auscultation: clear to auscultation bilaterally Cardio Rate: regular rate Rhythm: regular rhythm Extremity Extremity Narrative: No calf tenderness Palpable pulses 2 out of 4 DP and PT Intrinsic minus foot Rectus right second toe in loaded position now status post surgery Dorsal contraction of other lesser toes three, four, five Prominent metatarsal head General Extremity: edema and no tenderness to palpation of joints or extremities; Negative for cyanosis Skin Skin Narrative: no purulence, no streaking, no odor, no infection. Skin turgor is normal. General Skin Exam: Negative for erythema Neuro Neuro Narrative: lack of normal epicritic sensation via light touch is consistent with neuropathy status Psych cooperative and affect normal Assessment & Plan Assessment/Plan (1) Hammertoe of right foot: (2) Difficulty walking: (3) Chronic ulcer of right foot with fat layer exposed: PLAN: He was admitted for postoperative recovery residential facility placement due to difficulty to maintain nonweightbearing status and remember instructions. He had a curative surgery to prevent additional recurrent ulcer formation which included hammertoe correction with arthrodesis of the right second toe. He is overall stable without any local evidence of infection. To heel weightbearing to touch with surgical shoe for transfers otherwise non weightbearing. Use assistive device such as a walker. His dressing was applied postoperative and he will keep this clean, dry, and intact. Pain medication ordered as needed. To ice and elevate for pain and inflammation management also. Medical comorbidities are noted and he is overall stable. Hospitalist will be asked to be on consultation and is greatly appreciated. Discharge planning started with social work consultation as well. Please call with questions. The case was discussed again this morning with his sister. Rosalina Ruelas DPM, [facility] [phone] CODE STATUS: Full
[2021-08-09] MEDS: Lactated Ringers 1,000 ML 15 ML IV ×2 (07:28→08:30)
[2021-08-09] MEDS: Cefazolin 2 GM in 0.9% Normal Saline 100 ML IV (07:50)
--- NOTE | 2021-08-09 09:14 | RAD_ITS ---
STUDY: X-RAY - RIGHT FOOT CLINICAL: Male, 66 years old. Hammertoe arthrodesis correction. TECHNIQUE: 3 view(s) of the foot. COMPARISON: Intraoperative digital documentation views. FINDINGS: Osteopenia. Osteoarthritic changes. Arthrodesis repair/fusion of the PIP joint of the second digit. Periarticular soft tissue calcification at the first MTP joint. Soft tissue swelling at the surgical site. RAD/Foot min 3 Views IMPRESSION: Osteopenia with osteoarthritic changes. Postsurgical changes of fusion of the second PIP joint. Electronically Signed: Thee Guadarrama MD at 10:48 EST , Service support ,
--- NOTE | 2021-08-09 09:20 | PCM.OPRPT ---
Problems Associated Problem List Diagnoses (1) Chronic ulcer of right foot with fat layer exposed: (2) Hammertoe of right foot: Report of Operation Date of Procedure: 08/09/21 Pre-Operative Diagnosis: chronic right second toe ulcer Right second hammertoe Post-Operative Diagnosis: chronic right second toe ulcer Right second hammertoe Surgery/Procedure Performed:: Hammertoe correction right second with arthrodesis of the proximal interphalangeal joint with internal fixation Description of Surgical Findings:: Hemostasis: Well-padded pneumatic right ankle tourniquet, 45 minutes, 250 mmHg Materials: 3-0 Vicryl, 4-0 nylon, one Arthrex micro FT compression screw (2.5 mm) Specimens: None Complications: None The patient tolerated the procedure and anesthesia well. The patient was transported to the PACU with vital signs stable and vascular status intact to the surgical limb. To ice and elevate for pain and inflammation management. Postoperative x-rays were reviewed prior to leaving the operating room. The second toe is now in a rectus position with arthrodesis margins aligned with internal screw fixation across the proximal interphalangeal joint. There are no acute injuries noted or retained foreign body. Postoperative orders were entered electronically. Surgeon: Rosalina Ruelas athletic scout: None (Mike Rush, PGY1, DPM) Type of Anesthesia: General and Local (Preop: 1:1 mix 1% lidocaine plain and 0.5% Marcaine plain administered in right second ray block fashion, 10 cc) Specimen's removed: None Drains: None Estimated Blood Loss (mL): <15 mL Description of Procedure: Indications: This 66-year-old male with significant past medical history of depression, COPD, chronic kidney disease, asthma, psoriasis, history of gout, neuropathy, memory issues continues to have recurrent right distal second toe ulcers. He has an underlying semireducible hammer digit syndrome to the right second. He has failed conservative care including offloading, special extra-depth diabetic shoe gear, wound care, and nutritional recommendations. He elects to proceed forward with this curative type surgery. The goal is to prevent recurrent ulcers to reduce his risk of infection or limb loss. Preoperative H&P were reviewed including his diagnostic data. There is no gross abnormalities noted with labs for preoperative EKG. Preoperative indications, planned procedure, benefits, risk, anticipated healing time and management were reviewed. The patient understands and elects proceed with surgery at this time. No guarantees were made. The patient understands risk and complications include but are not limited to following: pain, swelling, scarring, need for further surgery, tendon contracture, transfer lesion, hardware failure, arthritis, need for further surgery, delayed or nonhealing, infection, blood clot, allergic reaction, loss of limb, function, or life. The informed surgical limb and consent were signed. I answered all the patient's questions. The case was also reviewed in detail with his sister. The patient also understands there is an inherent risk with being in the hospital and undergoing a procedure during the time of COVID-19 pandemic. The patient understands precautions are being taken to prevent transmission. This patient understands the benefits and risks of having a procedure at this time versus waiting in which the benefits are reasonable at this time. Procedure in detail: This patient was transported to the operating room via cart and placed on the operating room table in the supine position. Final verification of patient, surgery, limb designation was performed via the timeout procedure. A well-padded pneumatic right ankle tourniquet was placed. Anesthesia team initiated general anesthesia. The anesthesia team administered the preoperative IV antibiotics. The podiatry team administered the preoperative local anesthetic. The right lower extremity was prepped and draped in the usual aseptic manner. An Esmarch bandage was used to exsanguinate the limb and the tourniquet was inflated at this time. Attention was first directed to the right dorsal second toe in which a 1 and 1/2 cm linear incision was made over the proximal interphalangeal joint through the skin. Next, careful dissection was performed to release the extensor tendon and reflect all the soft tissue structures including the collateral ligaments off of the head of the proximal phalanx to allow good exposure. A sagittal saw was used to resect the head of the proximal phalanx and a rongeur to resect the articular surface down to subchondral healthy bleeding bone of the base of the middle phalanx. Next a guidepin was applied to align the second toe into a rectus position and according standard protocol the FT compression screw reaming was completed and micro FT compression screw was applied. The arthrodesis site was well aligned and compressed during application. Intraoperative fluoroscopy evaluation was performed to confirm proper hardware placement in the desired trajectory and position and corrected deformity position. No acute injuries were noted. Next, deep closure was performed with 3-0 Vicryl. The tourniquet was deflated at this time and brisk capillary refill time was noted to all digits of the right foot. The skin was reapproximated with 4-0 nylon utilizing horizontal mattress and simple suture techniques. A dressing consisting of Adaptic soaked in Betadine, 4 x 4 gauze, Luke and Fermín wrap were applied. After procedure: The patient tolerated the procedure and anesthesia well. The patient was transported to the PACU with vital signs stable and vascular status intact to the surgical limb. To ice and elevate for pain and inflammation management. Postoperative x-rays were reviewed prior to leaving the operating room as noted. Postoperative orders were entered electronically. He will be admitted for fpc facility placement. He has now been able to demonstrate appropriate weightbearing compliance in the outpatient setting for the past several months during his conservative care or the ability to follow instructions. His family is very concerned about him returning home as am I. We will see if he qualifies for placement to help him during the initial phases of healing. To maintain a nonweightbearing status to one place weight on heel in a surgical shoe if needed for transfer with assistive devices. PT/OT ordered. Rosalina Ruelas DPM, [facility] Grafts/Implants Used: Arthrex Complications None Admit VTE Documentation VTE Present on Admission: No VTE Mechan Device Prophylaxis: SCD's VTE Pharm Prophylaxis ordered?: No Reason prophylaxis not ordered:: Procedure Not Indicated
--- NOTE | 2021-08-09 10:31 | PCM.PN.HOSP ---
Documented by User: QUIN Levi 08/09/21 10:38 Subjective Subjective Patient seen and examined. Patient is lying in bed no distress noted. Patient continues to be somewhat drowsy following surgery. Patient denies pain at this time Objective Data Objective Data Vital Signs: Vital Signs Temp Pulse Resp BP Pulse Ox 98.6 F 67 16 118/84 H 92 08/09/21 10:00 08/09/21 10:00 08/09/21 10:00 08/09/21 10:00 08/09/21 10:00 Oxygen Flow Rate (L/min) 2 Oxygen Delivery Method Room Air Weight: 270 lb 8.115 oz Body Mass Index (BMI) 38.8 Intake & Output: Intake and Output for Last 24 Hours 08/07/21 08/08/21 08/09/21 23:59 23:59 23:59 Intake Total 1110 / 1110 Balance 1110 / 1110 Radiography Diagnostic Testing: Radiology Impression Foot X-Ray 08/09/21 07:00 IMPRESSION: Intraoperative digital documentation images as described. Electronically Signed: Thee Guadarrama MD at 9:56 EST , Service support , Physical Exam Const oriented x3 and no apparent distress HEENT head/scalp atraumatic Head and Scalp: normocephalic Eyes conjunctivae normal and no scleral icterus Neck no lymphadenopathy and supple Resp normal respiratory effort, normal air movement and clear to auscultation bilaterally Effort and Inspection: able to speak in complete sentences and symmetric chest movement Cardio regular rate, regular rhythm, S1 normal heart sound and S2 normal heart sound GI normal to inspection, nondistended, normoactive bowel sounds, soft to palpation and non-tender Extremity normal capillary refill Extremity Narrative: Fermín wrap dressing dry and intact to right lower extremity Peripheral Pulses: Yes pulses 2+ throughout Skin no rashes or lesions noted, no wounds and skin turgor normal Neuro moves all extremities, no focal motor deficits and no sensory deficits noted Sensorium / Orientation: awake and lethargic Speech: speech normal Psych affect normal Assessment & Plan Assessment/Plan (1) Hammertoe of right foot: PLAN: Patient seen at the request of Dr. Ruelas for medical management of patient's chronic diseases. 1. Hammertoe of the right foot -Postop day 0 -Pain management per podiatry -Fermín wrap dressing dry and intact right lower extremity 2. Asthma -Stable -Continue home regimen 3. BPH -Continue Flomax 4. PVD -Continue fenofibrate and gabapentin 5. Anxiety and depression -continue Celexa and Paxil DVT prophylaxis-SCD This patient was seen by QUIN Levi under the supervision of Dr. Ortega. Documented by User: Dr. Joseph Ortega MD 08/09/21 11:26 Charges/Coding Addendum Addendum: Dr. Ortega: I personally reviewed the chart and examined the patient, and agree with the above findings.66-year-old male here for an elective hammertoe surgery, medicine was consulted for medical management. He is a little bit groggy however does not appear that his chronic medical conditions are significantly changed recently. There are no contraindications to his home medications with these can all be continued. He does have chronic kidney disease stage IIIa therefore we will repeat a BMP in the morning in the setting of recent surgery Visit Charges Inpatient E&M: 42375 Subs Hosp L2
--- NOTE | 2021-08-09 11:55 | EKG12_ITS ---
Test Reason : Blood Pressure : / mmHG Vent. Rate : 065 BPM Atrial Rate : 065 BPM P-R Int : 210 ms QRS Dur : 094 ms QT Int : 452 ms P-R-T Axes : 049 -21 015 degrees QTc Int : 470 ms Sinus rhythm with 1st degree A-V block Otherwise normal ECG No previous ECGs available Confirmed by NICOLÁS VINES, ASHLEY ([id number]), news assignment editor ALLYN MENDOZA ([id number]) on 08/13/2021 9:27:10 AM Referred By: Rosalina Ruelas Confirmed By:ASHLEY MONZON MD
[2021-08-09] MEDS: Gabapentin 600 MG Tablet PO ×2 (13:53→21:38)
--- NOTE | 2021-08-09 14:00 | CASEMGMT ---
Social Work Note SW updated that pt's family is requesting to speak to this worker regarding SNF placement. SW in to speak with pt and pt's sister Sherry. SW introduced self and role at [facility]. SW spoke with pt and Sherry about SNF placement. Patient was provided a list of SNF providers including quality and resource use data and consistent with the patient?s preferred geographic region, medical needs, and insurance network. SNF placement. Pt and Sherry agreeable to SNF placement states preferred provider is [facility]. SW explained referral process and that pt will need pre-cert. Pt and Sherry state understanding. LO placed a call to Maira with TCU and provided referral. TCU is able to accept pt and will submit for pre-cert. LO placed a call to pt's sister Sherry and updated her that pt has been accepted to TCU pending pre-cert. SW placed Green sheet on chart in the event pre-cert is obtained. Pt will need COVID test on day of discharge. Plan: TCU pending pre-cert Rufina Blanc ACUTE CARE CLINICAL NURSE SPECIALIST, MARINE STEAM FITTER HELPER
[2021-08-09] MEDS: Lactated Ringers 1,000 ML 80 ML IV (16:43)
--- NOTE | 2021-08-09 16:48 | PCS.PANDOC ---
PANDEMIC DOCUMENTATION INITIATED: Date: 04/29/2021 Time: 190
[2021-08-09] MEDS: Albuterol 2.5 MG/3 ML VIAL.NEB. INHALATION (20:15)
[2021-08-09] MEDS: Budesonide Respules 0.5 MG/2 ML AMPUL.NEB. INHALATION (20:15)
[2021-08-09] MEDS: Acetaminophen 325 MG Tablet 650 MG PO (20:19)
[2021-08-09] MEDS: Tamsulosin HCl 0.4 MG Capsule PO (21:38)
[2021-08-10] VITALS (7 sets, daily range): BP systolic 100–118; BP diastolic 61–77; PULSE 72–91; RESP 16–20; TEMP 36.6–36.8; O2SAT 96–99
[2021-08-10] MEDS: Gabapentin 600 MG Tablet PO ×3 (05:22→21:07)
[2021-08-10] MEDS: Lactated Ringers 1,000 ML 80 ML IV (05:24)
[2021-08-10] MEDS: Citalopram 40 MG TABLET PO (07:25)
[2021-08-10] MEDS: Allopurinol 100 MG Tablet PO (07:25)
[2021-08-10] MEDS: Docusate Sodium 100 MG Capsule PO (07:26)
[2021-08-10] MEDS: Fenofibrate 145 MG Tablet PO (07:27)
[2021-08-10] MEDS: Acetaminophen 325 MG Tablet 650 MG PO ×2 (07:30→21:07)
[2021-08-10] MEDS: Paroxetine 20 MG Tablet PO (07:30)
[2021-08-10 07:34] LABS: Absolute Lymphocyte Count 1.54 X10^3/uL (0.83-4.51); Absolute Neutrophil Count 8.4 X10^3/uL (2.0-7.7); Basophil# 0.03 X10^3/uL; Basophil% 0.3 % (0-1); Eosinophil# 0.01 X10^3/uL; Eosinophils% 0.1 % (0-5); Hematocrit 39.7 % (40-54); Hemoglobin 12.7 g/dL (13.0-16.5); Lymphocyte # 1.54 X10^3/ul (0.83-4.51); Lymphocyte % 14.1 % (19-41); Mean Corpuscular Hgb 30.8 pg (27.0-32.0); Mean Corpuscular Volume 96.1 fL (80-94); Mean Platelet Vol. 10.9 fl (6.2-12.0); Monocyte# 0.94 X10^3/uL; Monocyte% 8.6 % (0-10); NRBC Flagged by Analyzer 0 % (0-5); Neutrophil # 8.35 X10^3/uL (2.7-7.7); Neutrophil % 76.6 % (47-70); Platelet Count 256 K/mm3 (150-450); RBC Distribution Width CV 14.3 % (11.6-14.6); RBC Distribution Width SD 50.5 fl (35.1-43.9); Red Blood Count 4.13 M/mm3 (4.6-6.2); White Blood Count 10.9 K/mm3 (4.4-11.0)
[2021-08-10] MEDS: Budesonide Respules 0.5 MG/2 ML AMPUL.NEB. INHALATION (07:40)
[2021-08-10] MEDS: Albuterol 2.5 MG/3 ML VIAL.NEB. INHALATION ×2 (07:40→13:14)
[2021-08-10 08:10] LABS: Anion Gap 5 (5-15); BUN 23 mg/dL (7-18); BUN/Creat Ratio 20.4 RATIO (10-20); Calcium,Total 8.6 mg/dL (8.5-10.1); Chloride 112 mmol/L (98-107); Creatinine, Serum 1.13 mg/dL (0.70-1.30); EST Glomerular Filtration Rate 69 mL/min (>60); Est Glom Filt Rate - Afr Amer 83 mL/min (>60); Glucose 104 mg/dL (74-106); Potassium 3.8 mmol/L (3.5-5.1); Sodium Level 144 mmol/L (136-145)
[2021-08-10] MEDS: Modafinil 200 MG Tablet 100 MG PO (08:33)
--- NOTE | 2021-08-10 10:20 | PCM.PROGNOTE ---
Subjective Subjective This 66-year-old male was seen postoperative day #1 right second hammer toe correction for treatment of chronic non healing ulcer. He denies fever, chill, nausea, vomiting, chest pain, shortness of breath, calf pain. His foot pain is minimal and controlled. Objective Data Objective Data Vital Signs: Vital Signs Temp Pulse Resp BP Pulse Ox 97.8 F 72 16 111/68 99 08/10/21 07:46 08/10/21 07:46 08/10/21 07:46 08/10/21 07:46 08/10/21 07:46 Oxygen Flow Rate (L/min) 2 Oxygen Delivery Method Room Air Weight: 122.7 kg Body Mass Index (BMI) 38.8 Intake & Output: Intake and Output for Last 24 Hours 08/08/21 08/09/21 08/10/21 23:59 23:59 23:59 Intake Total 2351.17 / 2351.17 1000 / 1000 Output Total 700 / 900 400 / 400 Balance 1651.17 / 1451.17 600 / 600 Lab / Micro Data Result Diagrams: 08/10/21 06:34 08/10/21 06:34 Labs: Laboratory Results - last 24 hr 08/10/21 06:34: WBC 10.9, RBC 4.13 L, Hgb 12.7 L, Hct 39.7 L, MCV 96.1 H, MCH 30.8, MCHC 32.0, RDW Std Deviation 50.5 H, RDW Coeff of Soumya 14.3, Plt Count 256, MPV 10.9, Immature Gran % (Auto) 0.300, Neut % (Auto) 76.6 H, Lymph % (Auto) 14.1 L, [place] % (Auto) 8.6, Eos % (Auto) 0.1, Baso % (Auto) 0.3, Absolute Neuts (auto) 8.4 H, Absolute Lymphs (auto) 1.54, Nucleated RBC % 0 08/10/21 06:34: Sodium 144, Potassium 3.8, Chloride 112 H, Carbon Dioxide 27.0, Anion Gap 5, BUN 23 H, Creatinine 1.13, Estim Creat Clear Calc 66.40, Est GFR (MDRD) Af Amer 83, Est GFR (MDRD) Non-Af 69, BUN/Creatinine Ratio 20.4 H, Glucose 104, Calcium 8.6 Radiography Diagnostic Testing: Radiology Impression Foot X-Ray 08/09/21 09:14 IMPRESSION: Osteopenia with osteoarthritic changes. Postsurgical changes of fusion of the second PIP joint. Electronically Signed: Thee Guadarrama MD at 10:48 EST , Service support , Physical Exam Const alert and oriented x3 General Appearance: cooperative Extremity Extremity Narrative: No calf tenderness Palpable pulses 2 out of 4 DP and PT Intrinsic minus foot Rectus right second toe in loaded position now status post surgery Dorsal contraction of other lesser toes three, four, five Prominent metatarsal head General Extremity: edema and no tenderness to palpation of joints or extremities; Negative for cyanosis Skin Skin Narrative: no purulence, no streaking, no odor, no infection. Skin turgor is normal. Nylon sutures are in place without gapping, necrosis or eschar or discoloration to dorsal right second toe General Skin Exam: Negative for erythema Neuro Neuro Narrative: lack of normal epicritic sensation via light touch is consistent with neuropathy status Assessment & Plan Assessment/Plan (1) Chronic ulcer of right foot with fat layer exposed: (2) Hammertoe of right foot: PLAN: He was admitted for postoperative recovery detention facility placement due to difficulty to maintain nonweightbearing status and remember instructions. He had a curative surgery to prevent additional recurrent ulcer formation which included hammertoe correction with arthrodesis of the right second toe. He is overall stable without any local evidence of infection. He remains afebrile and vital signs stable. CBC and CMP results reviewed. GFR noted at 69. To heel weightbearing to touch with surgical shoe for transfers otherwise non weightbearing. Use assistive device such as a walker. PT / OT ordered. His dressing was reapplied. To keep clean, dry, and intact. Pain medication ordered as needed. To ice and elevate for pain and inflammation management also. Medical comorbidities are noted and he is overall stable. Hospitalist in put is appreciated and noted. Discharge planning started with social work consultation as well. Prophylaxis: Continue incentive spirometer. Continue SCD contralateral limb. Please do not hesitate to call if you have any questions. Rosalina Ruelas DPM, [facility] [phone]
--- NOTE | 2021-08-10 11:39 | PN.HOSP_ITS ---
Documented by User: Bismark WALLACE 08/10/21 11:48 Subjective Subjective Patient is a 66-year-old male lying in bed status post right second hammertoe correction, alert and orient x3. Patient reports that his foot pain is well controlled and denies development of any new symptoms overnight. Does not appea r in acute distress. Objective Data Objective Data Vital Signs: Vital Signs Temp Pulse Resp BP Pulse Ox 98 F 87 16 109/77 96 08/10/21 11:32 08/10/21 11:32 08/10/21 11:32 08/10/21 11:32 08/10/21 11:32 Oxygen Flow Rate (L/min) 2 Oxygen Delivery Method Room Air Weight: 270 lb 8.115 oz Body Mass Index (BMI) 38.8 Intake & Output: Intake and Output for Last 24 Hours 08/08/21 08/09/21 08/10/21 23:59 23:59 23:59 Intake Total 2351.17 / 2351.17 1450 / 1450 Output Total 700 / 900 500 / 500 Balance 1651.17 / 1451.17 950 / 950 Lab / Micro Data Result Diagrams: 08/10/21 06:34 08/10/21 06:34 Labs: Laboratory Results - last 24 hr 08/10/21 06:34: WBC 10.9, RBC 4.13 L, Hgb 12.7 L, Hct 39.7 L, MCV 96.1 H, MCH 30.8, MCHC 32.0, RDW Std Deviation 50.5 H, RDW Coeff of Soumya 14.3, Plt Count 256, MPV 10.9, Immature Gran % (Auto) 0.300, Neut % (Auto) 76.6 H, Lymph % (Auto) 14.1 L, [place] % (Auto) 8.6, Eos % (Auto) 0.1, Baso % (Auto) 0.3, Absolute Neuts (auto) 8.4 H, Absolute Lymphs (auto) 1.54, Nucleated RBC % 0 08/10/21 06:34: Sodium 144, Potassium 3.8, Chloride 112 H, Carbon Dioxide 27.0, Anion Gap 5, BUN 23 H, Creatinine 1.13, Estim Creat Clear Calc 66.40, Est GFR (MDRD) Af Amer 83, Est GFR (MDRD) Non-Af 69, BUN/Creatinine Ratio 20.4 H, Glucose 104, Calcium 8.6 Physical Exam Const alert, oriented x3 and no apparent distress HEENT head/scalp atraumatic, moist oral mucous membranes and oropharynx normal Head and Scalp: normocephalic Eyes PERRL, EOMs intact bilaterally and conjunctivae normal Neck no lymphadenopathy, supple and no JVD Resp normal respiratory effort, no retractions, no use of accessory muscles and clear to auscultation bilaterally Cardio regular rate, regular rhythm, no murmurs and no JVD GI normal to inspection, nondistended, normoactive bowel sounds, soft to palpation and non-tender Extremity normal to inspection, full ROM and no clubbing, cyanosis or edema Skin no rashes or lesions noted, no wounds and skin turgor normal Neuro CN's II-XII intact bilaterally Psych affect normal Assessment & Plan Assessment/Plan (1) Hammertoe of right foot: PLAN: Patient is a 66-year-old male who presents to the hospital medicine service on consult from podiatry status post right hammertoe correction for chronic nonhealing ulcer. 1) asthma -Stable, not in acute exacerbation. Continue home asthma regimen. 2) BPH Continue Flomax. 3) PVD Continue treatment of fibrate and gabapentin. 4) anxiety depression Continue Celexa and Paxil. 5) hammertoe of the right foot POD 1 status post right hammertoe correction for chronic nonhealing ulcer. Management per podiatry. DVT prophylaxis - SCDs Patient seen by Bismark Moraes PA-C, under the supervision of Dr. Ortega. Documented by User: Dr. Joseph Ortega MD 08/10/21 13:17 Objective Data Lab / Micro Data Result Diagrams: 08/10/21 06:34 08/10/21 06:34 Charges/Coding Addendum Addendum: Dr. Ortega: I personally reviewed the chart and examined the patient, and agree with the kelsey obrien findings.66-year-old male here for an elective hammertoe surgery, medicine was consulted for medical management. He is a little bit groggy however does not appear that his chronic medical conditions are significantly changed recently. There are no contraindications to his home medications with these can all be continued. He does have chronic kidney disease stage IIIa therefore we will repeat a BMP in the morning in the setting of recent surgery 08/10/2021: Doing well after surgery, no issues overnight. Renal function is stable and at baseline and he states that he has not had any recent medication changes. He is medically stable for discharge. Visit Charges Inpatient E&M: 49896 Subs Hosp L2
[2021-08-10] MEDS: Tamsulosin HCl 0.4 MG Capsule PO (21:07)
[2021-08-10] MEDS: BENZOCAINE/MENTHOL 1 LOZENGE 2 LOZENGE MUCOUS MEM (22:56)
[2021-08-11 02:42] VITALS: BP 118/78; PULSE 77; RESP 16; TEMP 36.6; O2SAT 97
[2021-08-11] MEDS: Gabapentin 600 MG Tablet PO ×3 (05:35→21:08)
[2021-08-11 07:55] VITALS: BP 124/81; PULSE 72; RESP 18; TEMP 36.9; O2SAT 98
[2021-08-11] MEDS: Allopurinol 100 MG Tablet PO (07:58)
[2021-08-11] MEDS: BENZOCAINE/MENTHOL 1 LOZENGE 2 LOZENGE MUCOUS MEM (08:08)
[2021-08-11] MEDS: Docusate Sodium 100 MG Capsule PO (09:56)
[2021-08-11] MEDS: Citalopram 40 MG TABLET PO (09:56)
[2021-08-11] MEDS: Fenofibrate 145 MG Tablet PO (09:56)
[2021-08-11] MEDS: Paroxetine 20 MG Tablet PO (09:56)
[2021-08-11] MEDS: 0.9% Saline Lock 10 ML Syringe IV (09:57)
--- NOTE | 2021-08-11 10:51 | PCM.PN.HOSP ---
Documented by User: Bismark WALLACE 08/11/21 10:57 Subjective Subjective Patient is a 66-year-old male comfortably resting in a chair, alert and orient x3. Patient reports that pain from right foot is controlled and denies development of any new symptoms overnight. Does not appear in acute distress. Objective Data Objective Data Vital Signs: Vital Signs Temp Pulse Resp BP Pulse Ox 98.4 F 72 18 124/81 H 98 08/11/21 07:55 08/11/21 07:55 08/11/21 07:55 08/11/21 07:55 08/11/21 07:55 Oxygen Flow Rate (L/min) 2 Oxygen Delivery Method Room Air Weight: 270 lb 8.115 oz Body Mass Index (BMI) 38.8 Intake & Output: Intake and Output for Last 24 Hours 08/09/21 08/10/21 08/11/21 23:59 23:59 23:59 Intake Total 2351.17 / 2351.17 2708.67 / 2708.67 Output Total 700 / 900 750 / 1400 1100 / 1100 Balance 1651.17 / 1451.17 1958.67 / 1308.67 -1100 / -1100 Lab / Micro Data Result Diagrams: 08/10/21 06:34 08/10/21 06:34 Physical Exam Const alert, oriented x3 and no apparent distress HEENT head/scalp atraumatic and moist oral mucous membranes Head and Scalp: normocephalic Eyes PERRL, EOMs intact bilaterally and conjunctivae normal Neck no lymphadenopathy, supple and no JVD Resp normal respiratory effort, no retractions, no use of accessory muscles and clear to auscultation bilaterally Cardio regular rate, regular rhythm, no murmurs and no JVD GI normal to inspection, nondistended, normoactive bowel sounds, soft to palpation and non-tender Extremity Extremity Narrative: Right lower extremity appropriately Ferm[place] bandage status post hammertoe correction. No abnormalities noted through bandaging. Left lower extremity is unremarkable. Skin no rashes or lesions noted, no wounds, skin turgor normal and no jaundice Neuro CN's II-XII intact bilaterally Psych affect normal Assessment & Plan Assessment/Plan (1) Hammertoe of right foot: PLAN: Patient is a 66-year-old male who presents to the hospital medicine service on consult from podiatry status post right hammertoe correction for chronic nonhealing ulcer. 1) asthma Stable, not in acute exacerbation. Continue home asthma regimen. 2) BPH Continue Flomax. 3) PVD Continue treatment of fibrate and gabapentin. 4) anxiety depression Continue Celexa and Paxil. 5) hammertoe of the right foot POD 2 status post right hammertoe correction for chronic nonhealing ulcer. Management per podiatry. DVT prophylaxis - SCDs Patient seen by Bismark Moraes PA-C, under the supervision of Dr. Ortega. Documented by User: Dr. Joseph Ortega MD 08/11/21 12:10 Objective Data Lab / Micro Data Result Diagrams: 08/10/21 06:34 08/10/21 06:34 Charges/Coding Addendum Addendum: Dr. Ortega: I personally reviewed the chart and examined the patient, and agree with the above findings.66-year-old male here for an elective hammertoe surgery, medicine was consulted for medical management. He is a little bit groggy however does not appear that his chronic medical conditions are significantly changed recently. There are no contraindications to his home medications with these can all be continued. He does have chronic kidney disease stage IIIa therefore we will repeat a BMP in the morning in the setting of recent surgery 08/10/2021: Doing well after surgery, no issues overnight. Renal function is stable and at baseline and he states that he has not had any recent medication changes. He is medically stable for discharge. 08/11/2021: Doing well, feels little bit constipated we will add MiraLAX to his stool softening regimen. Otherwise for the same point he is stable for discharge. At this point we will will sign off and follow peripherally Visit Charges Inpatient E&M: 26100 Subs Hosp L2
[2021-08-11] MEDS: Modafinil 200 MG Tablet 100 MG PO (10:55)
[2021-08-11] MEDS: Acetaminophen 325 MG Tablet 650 MG PO (10:57)
[2021-08-11 13:53] VITALS: BP 129/83; PULSE 80; RESP 18; TEMP 36.7; O2SAT 98
--- NOTE | 2021-08-11 16:34 | CPS ---
Breathing Tx's D/C'd per Dr. Ortega due to patient refusing them
[2021-08-11 20:00] VITALS: BP 124/76; PULSE 84; RESP 16; TEMP 36.6; O2SAT 96
[2021-08-11] MEDS: Tamsulosin HCl 0.4 MG Capsule PO (21:08)
[2021-08-12 02:05] VITALS: BP 117/69; PULSE 75; RESP 16; TEMP 36.8; O2SAT 97
[2021-08-12] MEDS: Gabapentin 600 MG Tablet PO ×2 (05:46→14:20)
--- NOTE | 2021-08-12 06:54 | PN_ITS ---
Subjective Subjective This 66-year-old male was seen postoperative day #3 right second hammer toe correction for treatment of chronic non healing ulcer. He denies fever, chill, nausea, vomiting, chest pain, shortness of breath, calf pain. He denies foot pain. Objective Data Objective Data Vital Signs: Vital Signs Temp Pulse Resp BP Pulse Ox 98.2 F 75 16 117/69 97 08/12/21 02:05 08/12/21 02:05 08/12/21 02:05 08/12/21 02:05 08/12/21 02:05 Oxygen Flow Rate (L/min) 2 Oxygen Delivery Method Room Air Weight: 122.7 kg Body Mass Index (BMI) 38.8 Intake & Output: Intake and Output for Last 24 Hours 08/10/21 08/11/21 08/12/21 23:59 23:59 23:59 Intake Total 2708.67 / 2708.67 Output Total 750 / 1400 1400 / 1400 Balance 1958.67 / 1308.67 -1400 / -1400 Lab / Micro Data Result Diagrams: 08/10/21 06:34 08/10/21 06:34 Physical Exam Const alert and oriented x3 General Appearance: cooperative Extremity Extremity Narrative: No calf tenderness Rectus right second toe in loaded position now status post surgery Dorsal contraction of other lesser toes three, four, five General Extremity: edema and no tenderness to palpation of joints or extremities; Negative for cyanosis Skin Skin Narrative: no purulence, no streaking, no odor, no infection. Dressing and overlying Fermín wrap is intact without strikethrough. General Skin Exam: Negative for erythema Neuro Neuro Narrative: lack of normal epicritic sensation via light touch is consistent with neuropathy status Psych cooperative Assessment & Plan Assessment/Plan (1) Chronic ulcer of right foot with fat layer exposed: (2) Hammertoe of right foot: PLAN: He was admitted for postoperative recovery senior care facility placement due to difficulty to maintain nonweightbearing status and remember instructions. He had a curative surgery to prevent additional recurrent ulcer formation which included hammertoe correction with arthrodesis of the right second toe. He is overall stable without any local evidence of infection. He remains afebrile and vital signs stable. To heel weightbearing to touch with surgical shoe for transfers otherwise non weightbearing. Use assistive device such as a walker. PT / OT continued. To keep dressing clean, dry, and intact. Pain medication ordered as needed. To ice and elevate for pain and inflammation management also. Medical comorbidities are noted and he is overall stable. Discharge planning with social work consultation. detention facility placement pending. Prophylaxis: Continue incentive spirometer. Continue SCD contralateral limb. Please do not hesitate to call if you have any questions. Rosalina Ruelas DPM, [facility] [phone]
[2021-08-12 09:32] VITALS: BP 120/71; PULSE 86; RESP 18; TEMP 36.4; O2SAT 99
[2021-08-12] MEDS: Paroxetine 20 MG Tablet PO (09:35)
[2021-08-12] MEDS: Allopurinol 100 MG Tablet PO (09:35)
[2021-08-12] MEDS: Fenofibrate 145 MG Tablet PO (09:35)
[2021-08-12] MEDS: Citalopram 40 MG TABLET PO (09:35)
[2021-08-12] MEDS: Docusate Sodium 100 MG Capsule PO (09:35)
[2021-08-12] MEDS: Modafinil 200 MG Tablet 100 MG PO (09:41)
--- NOTE | 2021-08-12 10:31 | PN.HOSP_ITS ---
Subjective Subjective Patient 66-year-old gentleman who underwent Hammertoe correction right second with arthrodesis of the proximal interphalangeal joint with internal fixation on 08/09/2021. The hospitalist service was consulted to assist with management of patient medical comorbidities Objective Data Objective Data Vital Signs: Vital Signs Temp Pulse Resp BP Pulse Ox 97.5 F L 86 18 120/71 99 08/12/21 09:32 08/12/21 09:32 08/12/21 09:32 08/12/21 09:32 08/12/21 09:32 Oxygen Flow Rate (L/min) 2 Oxygen Delivery Method Room Air Weight: 122.7 kg Body Mass Index (BMI) 38.8 Intake & Output: Intake and Output for Last 24 Hours 08/10/21 08/11/21 08/12/21 23:59 23:59 23:59 Intake Total 2708.67 / 2708.67 Output Total 750 / 1400 1400 / 1400 Balance 1958.67 / 1308.67 -1400 / -1400 Lab / Micro Data Result Diagrams: 08/10/21 06:34 08/10/21 06:34 Physical Exam Narrative GENERAL: cooperative HEENT: Atraumatic; EYES; Anicteric, Normal Conjunctiva NECK; supple, normal thyroid, RESPIRATORY: Diminished to auscultation CARDIOVASCULAR: Regular S1 S2, GI: soft, normoactive bowel sounds, : No Renal angle tenderness; EXTREMITIES: Right foot in surgical dressing MUSCULOSKELETAL: no muscle waisting NEURO: Awake; no lateralizing signs. SKIN: No Rash PSYCH; Flat affect Assessment & Plan Assessment/Plan (1) Hammertoe of right foot: PLAN: Patient 66-year-old gentleman who underwent Hammertoe correction r ight second with arthrodesis of the proximal interphalangeal joint with internal fixation on 08/09/2021. The hospitalist service was consulted to assist with management of patient medical comorbidities 1. Chronic right second toe ulcer and right second hammertoe ?Status post arthrodesis of the proximal interphalangeal joint with internal fixation on 08/09/2021 2. Mild intermittent asthma ?Stable on Advair did continue 3. BPH ?Symptoms controlled with Flomax did continue -Stable 4. Dyslipidemia ?Patient is on fenofibrate discontinued 5. Gout ?Patient is on allopurinol 6. Depression with anxiety ?Patient is on Celexa 7. Obesity ?With BMI of 38.8 weight loss advised 8. DVT prophylaxis ?We will recommend Lovenox if no contraindication will defer to primary service Charges/Coding Visit Charges Inpatient E&M: 52120 Subs Hosp L2
[2021-08-12 10:42] VITALS: O2SAT 96
--- NOTE | 2021-08-12 10:50 | CASEMGMT ---
Social Work Note LO received call from Maira with TCU stating pre-cert was obtained, pt can discharge to TCU today. Pt will need COVID test. LO updated podiatry. LO received email from Maira with TCU stating TCU ran pt's medications and pt filled Tremfya and pt will not be able to be on this medication while on TCU. SW in to speak with pt. LO updated pt that pre-cert has been obtained for TCU and he will discharge there today. LO updated pt that he will not be able to be on Tremfya while on TCU. Pt states understanding. LO informed pt that this worker will call his sister Sherry to update. Pt states understanding. LO placed a call to pt's sister Sherry and updated her that pre-cert for TCU was obtained and pt will discharge there today. LO also updated Sherry that pt cannot be on Tremfya while on TCU. Sherry states understanding. Plan: TCU skilled today Rufina Blanc BIOFUELS ENGINEERING MANAGER, SEX OFFENDER TREATMENT PROFESSIONAL
--- NOTE | 2021-08-12 11:58 | PCM.DC.SUM ---
Providers Date of Admission: 08/09/21 Primary Care Physician: Dr. Mia Pop MD Consultations 08/09/21 10:07 Consult: Hospitalist Routine Consulting Provider: Joseph Ortega Reason for Consult: med management EMERGENT Consult: No MD Notified: Yes Date Notified: 08/09/21 Time Notified: 09:37 Method of Notification: Verbal Reason For Visit: RT 2ND TOE REPAIR HAMMERTOE Diagnosis Discharge Diagnosis (1) Hammertoe of right foot: Status: Acute Code(s): M20.41 - Other hammer toe(s) (acquired), right foot Medications at Discharge Home Medications aspirin 81 mg PO DAILY@0800 08/11/17 budesonide-formoterol [Symbicort] 2 puff INHALATION DAILY PRN 08/11/17 citalopram 40 mg PO DAILY 08/11/17 gabapentin 600 mg PO TID 08/11/17 modafinil 100 mg PO DAILY 08/11/17 tamsulosin [Flomax] 0.4 mg PO QHS 08/11/17 tizanidine 4 mg PO PRN PRN 08/11/17 fluticasone propion-salmeterol [Advair Diskus] 1 ea IH DAILY PRN PRN 04/30/18 fenofibrate 160 mg PO DAILY 06/26/21 meloxicam [Mobic] 15 mg PO DAILY 06/26/21 paroxetine HCl [Paxil] 20 mg PO DAILY 06/26/21 enoxaparin 40 mg SUBCUT DAILY 08/12/21 Hospital Course Operations - (hammer toe correction (curative for chronic ulcer)) Summary of Care Provided Minutes Spent on Discharge: 25 Hospital Course: Admitted post operative for physical/occupational therapy training and for penitentiary facility placement. He has demonstrated difficulty with maintaining appropriate weightbearing status. He remained stable from a medical standpoint during visit. Physical Exam Const alert and oriented x3 General Appearance: cooperative Extremity Extremity Narrative: No calf tenderness Rectus right second toe in loaded position now status post surgery Dorsal contraction of other lesser toes three, four, five General Extremity: edema and no tenderness to palpation of joints or extremities; Negative for cyanosis Skin Skin Narrative: no purulence, no streaking, no odor, no infection. Dressing and overlying Fermín wrap is intact without strikethrough. General Skin Exam: Negative for erythema Neuro Neuro Narrative: lack of normal epicritic sensation via light touch is consistent with neuropathy status Psych cooperative Weight / BMI Weight Weight: 122.7 kg Body Mass Index (BMI) 38.8 ABG / Lab / Microbiology Data Result Diagrams: 08/10/21 06:34 08/10/21 06:34 D/C Instructions Discharge Diet: No restrictions Discharge Activity: Use Walker Weight Bearing Status: No weight bearing (ok to heel weightbear for transfers in a surgical shoe) Keep extremity elevated above heart level: Left Leg Call your doctor if your incision/area has: Continuous Slow Oozing, Sudden Increased Bleeding, Increased Pain/ Swelling, Increased Redness, Foul Smelling Discharge and Swelling at the incision site Call your doctor if you observe: Fever of 101 or Higher, Calf discomfort and Uncontrolled pain Remove Dressing in: do not remove dressing Cleanse incision/area with: Keep Dressing Clean & Dry Please Follow Up With: Rosalina Ruelas DPM When: [address] Ruelas will follow along with your care at the transitional care unit. Meaningful Use Info Meaningful Use Diagnoses (Choose all that apply): None applicable Discharge Plan Admission Admit Date/Time: 08/09/21 07:12 Attending Provider: Gabe Davis Primary Care Provider: Mia Pop Consulting Providers: Joseph Ortega Instructions Additional Instructions / Restrictions: Heel weightbear to surgical foot with surgical shoe. Use assistive device. Leave surgical foot dressing clean, dry, and intact until Dr. Ruelas visits to change it. Discharge Orders/Prescriptions Prescriptions: Continued gabapentin 600 MG tablet 600 mg PO TID RF: 0 citalopram 40 MG tablet 40 mg PO DAILY RF: 0 tizanidine 4 MG tablet 4 mg PO PRN PRN (Reason: Spasms) RF: 0 tamsulosin [Flomax] 0.4 MG capsule 0.4 mg PO QHS RF: 0 aspirin 81 MG tablet,chewable 81 mg PO DAILY@0800 RF: 0 modafinil 100 MG tablet 100 mg PO DAILY RF: 0 budesonide-formoterol [Symbicort] 1 INHALER inhaler 2 puff inhalation DAILY PRN (Reason: Wheezing) RF: 0 fluticasone propion-salmeterol [Advair Diskus] 1 EACH blister with device 1 ea IH DAILY PRN PRN (Reason: Dyspnea) RF: 0 meloxicam [Mobic] 15 mg Tablet 15 mg PO DAILY RF: 0 paroxetine HCl [Paxil] 20 mg Tablet 20 mg PO DAILY RF: 0 fenofibrate 160 mg Tablet 160 mg PO DAILY RF: 0 Discontinued allopurinol 100 MG tablet 100 mg PO DAILY RF: 0 docusate sodium [DOK] 100 MG capsule 100 mg PO DAILY RF: 0 No Action enoxaparin 40 mg/0.4 mL syringe 40 mg subcut DAILY RF: 0 Referrals / Follow Up: Mia Pop MD [Primary Care Provider] - Rosalina Ruelas DPM [STAFF PHYSICIAN] - In 1 Week Disposition Disposition (needs filled in before D/C Order can be placed): Alf Facility
--- NOTE | 2021-08-12 11:58 | PCM.TXEXTCAR ---
Diet 08/09/21 07:19 Diet: Regular - General Food consistency:: Regular Liquid Consistency:: Regular/Thin Wound(s) RIGHT: Wound Type: Surgical Incision Therapies Weight Bearing: Partial weight bearing Problem/Diagnosis (1) Kailash of right foot: Status: Acute Allergies/Procedures Done in Hospital Allergies No Known Allergies Allergy (Verified 08/09/21 06:55) Type of Care/Length of Stay Estimated LOS: Convalescent Care Less Than 30 days Type of Care Needed: Skilled Rehab Potential: Fair Prognosis: Fair Additional Orders/Day of Discharge Day of Discharge: 08/12/21 Discharge Plan Admission Admit Date/Time: 08/09/21 07:12 Attending Provider: Gabe Davis Primary Care Provider: Mia Pop Consulting Providers: Joseph Ortega Instructions Additional Instructions / Restrictions: Heel weightbear to surgical foot with surgical shoe. Use assistive device. Leave surgical foot dressing clean, dry, and intact until Dr. Ruelas visits to change it. Discharge Orders/Prescriptions Prescriptions: New enoxaparin 40 mg/0.4 mL Syringe 40 mg subcut DAILY 14 Days Qty: 5.6 RF: 0 Continued gabapentin 600 MG tablet 600 mg PO TID RF: 0 citalopram 40 MG tablet 40 mg PO DAILY RF: 0 tizanidine 4 MG tablet 4 mg PO PRN PRN (Reason: Spasms) RF: 0 tamsulosin [Flomax] 0.4 MG capsule 0.4 mg PO QHS RF: 0 aspirin 81 MG tablet,chewable 81 mg PO DAILY@0800 RF: 0 modafinil 100 MG tablet 100 mg PO DAILY RF: 0 budesonide-formoterol [Symbicort] 1 INHALER inhaler 2 puff inhalation DAILY PRN (Reason: Wheezing) RF: 0 fluticasone propion-salmeterol [Advair Diskus] 1 EACH blister with device 1 ea IH DAILY PRN PRN (Reason: Dyspnea) RF: 0 meloxicam [Mobic] 15 mg Tablet 15 mg PO DAILY RF: 0 paroxetine HCl [Paxil] 20 mg Tablet 20 mg PO DAILY RF: 0 fenofibrate 160 mg Tablet 160 mg PO DAILY RF: 0 Discontinued allopurinol 100 MG tablet 100 mg PO DAILY RF: 0 docusate sodium [DOK] 100 MG capsule 100 mg PO DAILY RF: 0 Referrals / Follow Up: Mia Pop MD [Primary Care Provider] - Rosalina Ruelas DPM [STAFF PHYSICIAN] - In 1 Week Disposition Disposition (needs filled in before D/C Order can be placed): Nursing Home Facility
--- NOTE | 2021-08-12 17:47 | NURSING ---
report called to Maria E nurse on TCU
== END 2021-08-12 18:20 | disposition skilled nursing facility (03) | DRG 505 ==
LOC: SDC 09:31 → MS3 09:31
PROVIDERS: Family Medicine; Admitting Provider Podiatrist; PCP Family Medicine; Referring Provider Podiatrist; Visit Provider Internal Medicine
PROC: 0SRP0JZ Replacement of Right Toe Phalangeal Joint with Synthetic Substitute, Open Approach (ICD-10-PCS; principal; 2021-08-09 07:15)
DX: M20.41 Other hammer toe(s) (acquired), right foot (principal); L97.512 Non-pressure chronic ulcer of other part of right foot with fat layer exposed; J44.9 Chronic obstructive pulmonary disease, unspecified; N40.0 Benign prostatic hyperplasia without lower urinary tract symptoms; I73.9 Peripheral vascular disease, unspecified; F41.9 Anxiety disorder, unspecified; F32.A Depression, unspecified; N18.31 Chronic kidney disease, stage 3a; J45.20 Mild intermittent asthma, uncomplicated; E78.5 Hyperlipidemia, unspecified; E66.9 Obesity, unspecified; Z68.38 Body mass index [BMI] 38.0-38.9, adult; Z79.51 Long term (current) use of inhaled steroids; Z79.899 Other long term (current) drug therapy
CPT/HCPCS: 36415; 73620; 73630; 76000; 80048; 85025; 87426; 93005; 94640; 97110; 97162; 97166; 97530; 97535; C1713; J7120; A4216; J2405

== ENCOUNTER 2021-08-12 18:40 | Inpatient (IN) | payer MEDICARE, SELFPAY ==
[2021-08-12 18:59] VITALS: BP 132/84; PULSE 80; RESP 18; TEMP 36.5; O2SAT 94; BMI 38.8
[2021-08-12 20:00] VITALS: PULSE 100; RESP 16; O2SAT 98
--- NOTE | 2021-08-12 20:26 | HP.PCM_ITS ---
HPI - General General Date of Admission: 08/12/21 HPI Narrative RAYO SAMANIEGO, is a 66 MALE who presents WITH FOLLOWIN08/09/2021 DR. LOZADA PERFORMED HAMMERTOE CORRECTION RIGHT 2ND TOE WITH ARTHRODESIS OF THE PROXIMAL INTERPHALANGEAL JOINT WITH INTERNAL FIXATION. DUE TO NEUROPATHY, POSSIBLE COGNITIVE DEFICIT, UNABLE TO MAINTAIN NONWEIGHT BEARING RIGHT LOWER EXTREMITY STATUS AT HOME. RECOMMEND [facility]. 08/09/2021 DROWSY AFTER SURGERY. 08/10/2021 FOOT PAIN WELL CONTROLLED. 08/11/2021 MIRALAX ADDED FOR CONSTIPATION. 08/12/2021 ADMIT TO TCU WITH DEBILITY, HERE FOR REHABILITATION, STRENGTHENING, PRIOR TO DISCHARGE HOME ALONE. [facility] Medical History Arthritis Back pain Blackout COPD (chronic obstructive pulmonary disease) CPAP (continuous positive airway pressure) dependence Depression Heartburn History of stress test Narcolepsy Non-smoker Pain Prostate disease Psoriasis Shortness of breath on exertion Wears dentures Wears glasses Home Medications aspirin 81 mg PO DAILY@0800 08/11/17 [History Last Taken Unknown] budesonide-formoterol [Symbicort] 2 puff INHALATION DAILY PRN 08/11/17 [History Last Taken 08/08/21] citalopram 40 mg PO DAILY 08/11/17 [History Last Taken 08/08/21] gabapentin 600 mg PO TID 08/11/17 [History Last Taken 08/08/21] modafinil 100 mg PO DAILY 08/11/17 [History Last Taken 08/08/21] tamsulosin [Flomax] 0.4 mg PO QHS 08/11/17 [History Last Taken 08/08/21] tizanidine 4 mg PO PRN PRN 08/11/17 [History Last Taken Unknown] fluticasone propion-salmeterol [Advair Diskus] 1 ea IH DAILY PRN PRN 04/30/18 [History Last Taken 08/08/21] fenofibrate 160 mg PO DAILY 06/26/21 [History Last Taken 08/08/21] meloxicam [Mobic] 15 mg PO DAILY 06/26/21 [History Last Taken 08/08/21] paroxetine HCl [Paxil] 20 mg PO DAILY 06/26/21 [History Last Taken 08/08/21] enoxaparin 40 mg SUBCUT DAILY 08/12/21 [History Last Taken Unknown] Allergy/AdvReac Type Severity Reaction Status Date / Time No Known Allergies Allergy Verified 08/09/21 06:55 Surgical History Hx of colonoscopy Hx of foot surgery Hx of left cataract extraction Hx of right cataract extraction Social History (Updated 08/12/21 @ 20:[address] Carson Hays MD) household members: none Smoking Status: Never smoker alcohol intake: never substance use type: does not use ROS Constitutional Constitutional: Denies chills, fever(s) or weight gain ENT HEENT: Denies headache(s), nasal congestion or nasal discharge Cardiovascular Cardiovascular: Denies chest pain or palpitations Respiratory/Chest Respiratory/Chest: Denies cough, excessive phlegm production or shortness of breath with exertion Gastrointestinal Gastrointestinal: Denies abdominal pain, nausea or vomiting Genitourinary Genitourinary: Denies dysuria Musculoskeletal Musculoskeletal: Denies joint pain or joint swelling Integumentary Integumentary: Denies rash or wounds Neurologic Neurologic: Denies focal weakness, numbness or tingling Psychiatric Psychiatric: Denies anxiety, depression, homicidal ideation or suicidal ideation Physical Exam Const alert and oriented x3 General Appearance: cooperative HEENT normocephalic Eyes PERRL and EOMs intact bilaterally Neck supple, no JVD and no carotid bruits Resp normal respiratory effort, normal air movement and clear to auscultation bilaterally Cardio regular rate and regular rhythm GI normal to inspection, nondistended, normoactive bowel sounds, non-tender and non-distended Extremity normal capillary refill Extremity Narrative: Right foot dressed. General Extremity: Negative for edema Skin no rashes or lesions noted General Skin Exam: no breakdown Psych affect normal Appearance: appropriate Results Lab / Micro Data Result Diagrams: 08/13/21 05:50 08/13/21 05:50 Assessment & Plan Assessment/Plan (1) Debility: (2) Right second toe ulcer: (3) Hammertoe of second toe of right foot: (4) Low back pain: (5) Neuropathy: (6) Psoriasis: (7) Asthma: (8) Narcolepsy: (9) Gout: (10) Prostate cancer: (11) Depression: (12) Benign prostatic hyperplasia: (13) Muscle spasm: (14) Hyperlipidemia: (15) Osteoarthritis: PLAN: 66 YEAR OLD MALE WITH BELOW PAST MEDICAL HISTORY HOSPITALIZED FOR RI GHT FOOT SURGERY 08/09/[address] LOZADA, UNABLE TO MAINTAIN NWB STATUS RIGHT LOWER EXTREMITY HOME ALONE, ADMITTED TO TCU WITH DEBILITY, HERE FOR REHABILITATION, STRENGTHENING, PRIOR TO DISCHARGE HOME ALONE. * Debility - PT/OT. * Pain - Tylenol 1000mg q6h prn pain (1-10). * Bowel - Miralax 17gm daily, Colace 100mg tid, Dulcolax 10mg daily prn. * Adult immunization - Administer prevnar 13, pneumovax 23, fluzone, covid19 vaccine as appropriate. * DVT prophylaxis - resident declined Lovenox. * Asthma - Budesonide 0.5mg inhaled q12h, albuterol 2.5mg nebulized q6hwa. * CV prophylaxis - Aspirin 81mg daily. 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 * Hyperlipidemia - Fenofibrate 160mg daily. * Neuropathic pain - Gabapentin 600mg tid. * Osteoarthritis - Meloxicam 15mg daily. * Narcolepsy - Provigil 100mg daily. * BPH - Tamsulosin 0.4mg daily. * Muscle spasm - Tizanidine 4mg daily prn.
[2021-08-12] MEDS: Gabapentin 600 MG Tablet PO (21:46)
[2021-08-12] MEDS: Tamsulosin HCl 0.4 MG Capsule PO (21:46)
[2021-08-13] MEDS: Meloxicam 15 MG Tablet PO (05:56)
[2021-08-13] MEDS: Citalopram 40 MG TABLET PO (05:56)
[2021-08-13] MEDS: Paroxetine 20 MG Tablet PO (05:56)
[2021-08-13] MEDS: Fenofibrate 145 MG Tablet PO (05:56)
--- NOTE | 2021-08-13 06:00 | NURSING ---
Pt very hesitant to take lovenox injection this am, states he was not taking them in the hospital and does not think he needs them now. Explained to pt the risks of blood clots while in the hospital, and talked to pt about benefits of Lovenox, pt still refusing to take until he talks to the doctor. Note left for Dr. Hays to address when he comes in this am.
[2021-08-13 06:05] VITALS: BP 111/76; PULSE 75
[2021-08-13 06:22] LABS: Absolute Lymphocyte Count 1.99 X10^3/uL (0.83-4.51); Absolute Neutrophil Count 4.1 X10^3/uL (2.0-7.7); Basophil# 0.07 X10^3/uL; Basophil% 0.9 % (0-1); Eosinophil# 0.32 X10^3/uL; Eosinophils% 4.3 % (0-5); Hematocrit 42.7 % (40-54); Hemoglobin 13.8 g/dL (13.0-16.5); Lymphocyte # 1.99 X10^3/ul (0.83-4.51); Lymphocyte % 26.9 % (19-41); Mean Corp Hgb Conc 32.3 g/dL (32-36); Mean Corpuscular Hgb 30.5 pg (27.0-32.0); Mean Corpuscular Volume 94.3 fL (80-94); Mean Platelet Vol. 10.8 fl (6.2-12.0); Monocyte# 0.94 X10^3/uL; Monocyte% 12.7 % (0-10); NRBC Flagged by Analyzer 0 % (0-5); Neutrophil # 4.05 X10^3/uL (2.7-7.7); Neutrophil % 54.8 % (47-70); Platelet Count 263 K/mm3 (150-450); RBC Distribution Width CV 14.2 % (11.6-14.6); RBC Distribution Width SD 49.1 fl (35.1-43.9); Red Blood Count 4.53 M/mm3 (4.6-6.2); White Blood Count 7.4 K/mm3 (4.4-11.0)
[2021-08-13 06:36] LABS: Anion Gap 3 (5-15); BUN 27 mg/dL (7-18); BUN/Creat Ratio 21.8 RATIO (10-20); Calcium,Total 8.5 mg/dL (8.5-10.1); Chloride 107 mmol/L (98-107); Creatinine, Serum 1.24 mg/dL (0.70-1.30); EST Glomerular Filtration Rate 62 mL/min (>60); Est Glom Filt Rate - Afr Amer 75 mL/min (>60); Estimated Creatinine Clearance 60.51 ml/min; Glucose 98 mg/dL (74-106); Potassium 4.1 mmol/L (3.5-5.1); Sodium Level 139 mmol/L (136-145)
[2021-08-13] MEDS: Aspirin 81 MG TAB.CHEW PO (08:01)
[2021-08-13] MEDS: Gabapentin 600 MG Tablet PO ×3 (08:01→17:19)
[2021-08-13] MEDS: Tuberculin,Purif.prot.deriv. 50 TU/ML Vial 0.1 ML ID (10:32)
[2021-08-13] MEDS: Docusate Sodium 100 MG Capsule PO ×2 (14:27→21:21)
[2021-08-13 15:37] VITALS: BP 129/79; PULSE 85; RESP 16; TEMP 36.6; O2SAT 93
--- NOTE | 2021-08-13 15:50 | CASEMGMT ---
Addendum entered by Mona Malone 08/14/21 12:53: Provided handrail resources to pt to get a second handrail placed to entry steps. Original Note: Social Work Met with patient for initial assessment. Discussed code status. Pt confirmed full code. MOLST form completed, communication to , placed in chart. Explained [facility] insurance with [employer] 08/14 and continued stay is not guaranteed. Pt lives at home alone, sister and son live out of town. Unable to assist pt at home. SW to continue to follow for discharge planning. Mona Malone, PASSENGER CONDUCTOR GENER[address] ROAD SUPERVISOR
--- NOTE | 2021-08-13 16:48 | PCM.PN.RX ---
Progress Note - Pharmacy Subjective: TCU Admission Objective: Allergies No Known Allergies Allergy (Verified 08/09/21 06:55) Current Medications Generic Name Dose Route Start Last Admin Trade Name Freq PRN Reason Stop Dose Admin Acetaminophen 1,000 mg 08/12/21 20:42 Acetaminophen 500 Mg Tablet PO Q6H PRN PRN Pain Score 1-10 Albuterol Sulfate 2.5 mg 08/12/21 20:30 Albuterol 2.5 Mg/3 Ml Vial.Neb. INHALATION Q6HWA.RT [facility] Aspirin 81 mg 08/13/21 08:00 08/13/21 08:01 Aspirin 81 Mg Tab.Chew PO 81 mg DAILY@0800 ADOLFO Administration Bisacodyl 10 mg 08/12/21 20:42 Bisacodyl 5 Mg Tablet PO DAILY PRN Constipation Budesonide 0.5 mg 08/12/21 20:30 Budesonide Respules 0.5 Mg/2 Ml Ampul.Neb. INHALATION Q12H.RT [facility] Citalopram Hydrobromide 40 mg 08/13/21 06:00 08/13/21 05:56 Citalopram 40 Mg Tablet PO 40 mg DAILY ADOLFO Administration Docusate Sodium 100 mg 08/13/21 14:00 08/13/21 14:27 Docusate Sodium 100 Mg Capsule PO 100 mg TID ADOLFO Administration Fenofibrate 145 mg 08/13/21 06:00 08/13/21 05:56 Fenofibrate 145 Mg Tablet PO 145 mg DAILY ADOLFO Administration Gabapentin 600 mg 08/13/21 07:45 08/13/21 12:31 Gabapentin 600 Mg Tablet PO 600 mg TIDCM ADOLFO Administration Meloxicam 15 mg 08/13/21 06:00 08/13/21 05:56 Meloxicam 15 Mg Tablet PO 15 mg DAILY ADOLFO Administration Modafinil 100 mg 08/14/21 06:00 Modafinil 200 Mg Tablet PO DAILY ADOLFO Paroxetine HCl 20 mg 08/13/21 06:00 08/13/21 05:56 Paroxetine 20 Mg Tablet PO 20 mg DAILY ADOLFO Administration Polyethylene Glycol 17 gm 08/13/21 06:00 08/13/21 05:56 Polyethylene Glycol 3350 17 Gm Packet PO Not Given DAILY ADOLFO Sodium Chloride 10 - 40 ml 08/13/21 01:04 0.9% Saline Lock 10 Ml Syringe IV UD PRN SALINE FLUSH Tamsulosin HCl 0.4 mg 08/12/21 22:00 08/12/21 21:46 Tamsulosin Hcl 0.4 Mg Capsule PO 0.4 mg QHS ADOLFO Administration Tizanidine HCl 4 mg 08/12/21 20:31 Tizanidine Hcl 2 Mg Tablet PO DAILY PRN SPASMS Tuberculin PPD 0.1 ml 08/20/21 10:00 Tuberculin,Purif.Prot.Deriv. 50 Tu/Ml Vial ID 08/20/21 10:01 X1 ONE Problem List (Last Reviewed 08/12/21 @ 20:[address] Carson Hays MD) Osteoarthritis (Acute) Hyperlipidemia (Acute) Muscle spasm (Acute) Benign prostatic hyperplasia (Acute) Depression (Acute) Prostate cancer (Acute) Gout (Acute) Narcolepsy (Acute) Asthma (Acute) Psoriasis (Acute) Neuropathy (Acute) Low back pain (Acute) Hammertoe of second toe of right foot (Acute) Right second toe ulcer (Acute) Debility (Acute) Vital Signs Temp Pulse Resp BP Pulse Ox 97.9 F 85 16 129/79 H 93 08/13/21 15:37 08/13/21 15:37 08/13/21 15:37 08/13/21 15:37 08/13/21 15:37 Oxygen Delivery Method Room Air Weight: 121.245 kg Body Mass Index (BMI) 38.8 Sodium 139 mmol/L (136-145) 08/13/21 05:50 Potassium 4.1 mmol/L (3.5-5.1) 08/13/21 05:50 Chloride 107 mmol/L (98-107) 08/13/21 05:50 Carbon Dioxide 29.0 mmol/L (21.0-32.0) 08/13/21 05:50 Anion Gap 3 (5-15) L 08/13/21 05:50 BUN 27 mg/dL (7-18) H 08/13/21 05:50 Creatinine 1.24 mg/dL (0.70-1.30) 08/13/21 05:50 Est GFR (MDRD) Af Amer 75 mL/min (>60) 08/13/21 05:50 Est GFR (MDRD) Non-Af 62 mL/min (>60) 08/13/21 05:50 BUN/Creatinine Ratio 21.8 RATIO (10-20) H 08/13/21 05:50 Glucose 98 mg/dL (74-106) 08/13/21 05:50 Assessment/Plan: 1. Pain: acetaminophen 1000mg PO Q6H PRN pain 1-06/23. Please continue to monitor for increased pain and PRN usage. 2. Asthma: budesonide nebulized solution 0.5mg inhalation Q12H and albuterol nebulized solution 2.5mg inhalation Q6HWA.RT. Please continue to monitor HR (last 85) and thursh. 3. CV prophylaxis: aspirin 81mg PO DAILYCM. Please continue to monitor for S/S of bleeding and hemoglobin (last 13.8g/dL). *4. Hyperlipidemia: fenofibrate 145mg PO daily. Please consider ordering a lipid panel. Last lipid panel from 12/2018. Thanks. 5. Neuropathic pain: gabapentin 600mg PO TIDCM. Please continue to monitor for confusion and renal function. 6. Osteoarthritis: meloxicam 15mg PO daily. Please continue to monitor for pain and S/S of bleeding. 7. Narcolepsy: modafinil 100mg PO daily. Please continue to monitor for narcolepsy. 8. BPH: tamsulosin 0.4mg PO QHS. Please continue to monitor BP (last 129/79) and S/S of BPH. 9. Muscle spasm: tizanidine 4mg PO daily PRN spasms. Please continue to monitor for muscle spasms, PRN usage and anticholinergic side effects. (this medication is on the BEERs list) Psychotropic Medications: 1. Depression: citalopram 40mg PO daily and paroxetine 20mg PO daily. Please see physician note regarding GDR. Please continue to monitor for GI side effects. Unnecessary Medications: None Bowel Regimen: Miralax 17gm PO daily, docusate 100mg PO TID and bisacodyl 10mg PO daily PRN constipation. Please continue to monitor for constipation and PRN usage. Date of Note:: 08/13/21
[2021-08-13 19:29] VITALS: PULSE 85; RESP 16; O2SAT 93
[2021-08-13] MEDS: Tamsulosin HCl 0.4 MG Capsule PO (21:21)
[2021-08-14] MEDS: Docusate Sodium 100 MG Capsule PO ×3 (05:13→21:21)
[2021-08-14] MEDS: Meloxicam 15 MG Tablet PO (05:13)
[2021-08-14] MEDS: Paroxetine 20 MG Tablet PO (05:14)
[2021-08-14] MEDS: Citalopram 40 MG TABLET PO (05:14)
[2021-08-14] MEDS: Fenofibrate 145 MG Tablet PO (05:14)
[2021-08-14 07:21] VITALS: O2SAT 94
[2021-08-14] MEDS: Modafinil 200 MG Tablet 100 MG PO (07:28)
[2021-08-14] MEDS: Aspirin 81 MG TAB.CHEW PO (07:38)
[2021-08-14] MEDS: Gabapentin 600 MG Tablet PO ×3 (07:38→17:38)
[2021-08-14 14:26] VITALS: BP 140/74; PULSE 93; RESP 12; TEMP 36.3; O2SAT 95
[2021-08-14 20:10] VITALS: O2SAT 96
[2021-08-14] MEDS: Tamsulosin HCl 0.4 MG Capsule PO (21:21)
[2021-08-15] MEDS: Citalopram 40 MG TABLET PO (05:59)
[2021-08-15] MEDS: Docusate Sodium 100 MG Capsule PO ×3 (05:59→20:28)
[2021-08-15] MEDS: Fenofibrate 145 MG Tablet PO (05:59)
[2021-08-15] MEDS: Paroxetine 20 MG Tablet PO (05:59)
[2021-08-15] MEDS: Meloxicam 15 MG Tablet PO (05:59)
[2021-08-15 06:00] VITALS: BP 106/71; PULSE 72
[2021-08-15] MEDS: 0.9% Saline Lock 10 ML Syringe IV (06:00)
[2021-08-15] MEDS: Modafinil 200 MG Tablet 100 MG PO (06:01)
[2021-08-15] MEDS: Gabapentin 600 MG Tablet PO ×3 (09:01→17:27)
[2021-08-15] MEDS: Aspirin 81 MG TAB.CHEW PO (09:01)
[2021-08-15 19:25] VITALS: BP 110/73; PULSE 87; RESP 16; TEMP 36.6; O2SAT 100
[2021-08-15 19:26] VITALS: PULSE 87; RESP 16; O2SAT 100
[2021-08-15] MEDS: Tamsulosin HCl 0.4 MG Capsule PO (20:29)
[2021-08-16] MEDS: Fenofibrate 145 MG Tablet PO (06:56)
[2021-08-16] MEDS: Meloxicam 15 MG Tablet PO (06:56)
[2021-08-16] MEDS: Citalopram 40 MG TABLET PO (06:56)
[2021-08-16] MEDS: Docusate Sodium 100 MG Capsule PO ×3 (06:56→23:27)
[2021-08-16] MEDS: Paroxetine 20 MG Tablet PO (06:56)
[2021-08-16] MEDS: Modafinil 200 MG Tablet 100 MG PO (07:02)
[2021-08-16] MEDS: Gabapentin 600 MG Tablet PO ×3 (09:39→16:46)
[2021-08-16] MEDS: Aspirin 81 MG TAB.CHEW PO (09:39)
[2021-08-16 15:39] VITALS: BP 129/77; PULSE 77; RESP 14; TEMP 36.6; O2SAT 92
[2021-08-16] MEDS: Tamsulosin HCl 0.4 MG Capsule PO (23:28)
[2021-08-16 23:30] VITALS: PULSE 68; RESP 16; O2SAT 97
[2021-08-17 06:16] VITALS: BP 132/70; PULSE 71
[2021-08-17] MEDS: Citalopram 40 MG TABLET PO (06:17)
[2021-08-17] MEDS: Docusate Sodium 100 MG Capsule PO ×3 (06:17→21:05)
[2021-08-17] MEDS: Meloxicam 15 MG Tablet PO (06:18)
[2021-08-17] MEDS: Fenofibrate 145 MG Tablet PO (06:18)
[2021-08-17] MEDS: Paroxetine 20 MG Tablet PO (06:18)
[2021-08-17] MEDS: Modafinil 200 MG Tablet 100 MG PO (06:22)
[2021-08-17] MEDS: Aspirin 81 MG TAB.CHEW PO (08:30)
[2021-08-17] MEDS: Gabapentin 600 MG Tablet PO ×3 (08:30→17:32)
[2021-08-17 11:21] VITALS: PULSE 84; RESP 16; O2SAT 94
[2021-08-17 15:38] VITALS: BP 131/70; PULSE 84; RESP 18; TEMP 36.6; O2SAT 94
[2021-08-17] MEDS: Tamsulosin HCl 0.4 MG Capsule PO (21:05)
[2021-08-18 06:45] VITALS: BP 130/71; PULSE 71
[2021-08-18] MEDS: Docusate Sodium 100 MG Capsule PO ×3 (06:46→20:43)
[2021-08-18] MEDS: Meloxicam 15 MG Tablet PO (06:46)
[2021-08-18] MEDS: Fenofibrate 145 MG Tablet PO (06:46)
[2021-08-18] MEDS: Paroxetine 20 MG Tablet PO (06:46)
[2021-08-18] MEDS: Citalopram 40 MG TABLET PO (06:47)
[2021-08-18] MEDS: Modafinil 200 MG Tablet 100 MG PO (06:59)
[2021-08-18] MEDS: Aspirin 81 MG TAB.CHEW PO (08:10)
[2021-08-18] MEDS: Gabapentin 600 MG Tablet PO ×3 (08:10→17:10)
--- NOTE | 2021-08-18 12:41 | PN_ITS ---
Subjective Subjective This 66-year-old male was seen status post right second hammer toe correction for treatment of chronic non healing ulcer. He denies fever, chill, nausea, vomiting, chest pain, shortness of breath, calf pain. He keeps weight off of his forefoot with the use of a surgical shoe and walker. His pain is intermittently at worse a 6/10 and is a 0/10 at this present time. Objective Data Objective Data Vital Signs: Vital Signs Temp Pulse Resp BP Pulse Ox 97.9 F 71 18 130/71 H 94 08/17/21 15:38 08/18/21 06:45 08/17/21 15:38 08/18/21 06:45 08/17/21 15:38 Oxygen Delivery Method Room Air Weight: 121.245 kg Body Mass Index (BMI) 38.8 Intake & Output: Intake and Output for Last 24 Hours 08/16/21 08/17/21 08/18/21 23:59 23:59 23:59 Intake Total 1080 / 1080 360 / 360 360 / 360 Balance 1080 / 1080 360 / 360 360 / 360 Lab / Micro Data Result Diagrams: 08/13/21 05:50 08/13/21 05:50 Physical Exam Const alert and oriented x3 General Appearance: cooperative Extremity Extremity Narrative: No calf tenderness Rectus right second toe in loaded position now status post surgery Dorsal contraction of other lesser toes three, four, five General Extremity: edema and no tenderness to palpation of joints or extremities; Negative for cyanosis Skin Skin Narrative: no purulence, no streaking, no odor, no infection. incision intact without gapping, necrosis or infection or erythema. Dressing and overlying Fermín wrap is intact without strikethrough. General Skin Exam: Negative for erythema Neuro Neuro Narrative: lack of normal epicritic sensation via light touch is consistent with neuropathy status Psych cooperative Assessment & Plan Assessment/Plan (1) Chronic ulcer of right foot with fat layer exposed: (2) Hammertoe of right foot: PLAN: He was [facility] due to difficulty to maintain nonweightbearing status and remember instructions. He had a curative surgery to prevent additional recurrent ulcer formation which included hammertoe correction with arthrodesis of the right second toe. He is overall stable without any local evidence of infection. He remains afebrile and vital signs stable. To heel weightbearing to touch with surgical shoe for transfers otherwise non weightbearing. Use assistive device such as a walker. PT / OT continued in transitional care unit. To keep dressing clean, dry, and intact. Pain medication ordered as needed. To ice and elevate for pain and inflammation management also. Medical comorbidities are noted and he is overall stable. Please do not hesitate to call if you have any questions. Podiatry team will see weekly and suture removal will be considered between post op week 2 and 4. Rosalina Ruelas DPM, [facility] [phone]
[2021-08-18 16:00] VITALS: BP 106/68; PULSE 81; RESP 18; TEMP 36.4; O2SAT 94
[2021-08-18] MEDS: Tamsulosin HCl 0.4 MG Capsule PO (20:43)
[2021-08-18 22:56] VITALS: PULSE 83; O2SAT 93
--- NOTE | 2021-08-19 04:13 | NURSING ---
Bathroom call light on for a brief period of time. Upon arrival into bathroom, pt completed an unassisted transfer from toilet to wheeled recliner chair. Pt informs this nurse he is able to transfer himself. Supervised transfer back to bed. Positioned for comfort. Call light w/ in reach.
[2021-08-19] MEDS: Docusate Sodium 100 MG Capsule PO ×3 (05:48→20:29)
[2021-08-19] MEDS: Meloxicam 15 MG Tablet PO (05:48)
[2021-08-19] MEDS: Paroxetine 20 MG Tablet PO (05:49)
[2021-08-19] MEDS: Citalopram 40 MG TABLET PO (05:49)
[2021-08-19] MEDS: Fenofibrate 145 MG Tablet PO (05:49)
[2021-08-19] MEDS: Modafinil 200 MG Tablet 100 MG PO (06:20)
[2021-08-19] MEDS: Gabapentin 600 MG Tablet PO ×3 (10:58→16:38)
[2021-08-19] MEDS: Aspirin 81 MG TAB.CHEW PO (10:58)
[2021-08-19] MEDS: Juven (unflavored) Packet 1 PACKET PO ×2 (10:59→16:38)
[2021-08-19 15:04] VITALS: BP 136/90; PULSE 75; RESP 16; TEMP 36.6; O2SAT 95
[2021-08-19 15:06] VITALS: PULSE 79; RESP 16; O2SAT 95
--- NOTE | 2021-08-19 16:02 | NURSING ---
Resident and sister, Sherry, notified of staff member testing positive for COVID.
[2021-08-19] MEDS: Tamsulosin HCl 0.4 MG Capsule PO (20:29)
[2021-08-20] MEDS: Meloxicam 15 MG Tablet PO (05:05)
[2021-08-20] MEDS: Paroxetine 20 MG Tablet PO (05:05)
[2021-08-20] MEDS: Citalopram 40 MG TABLET PO (05:05)
[2021-08-20] MEDS: Docusate Sodium 100 MG Capsule PO ×3 (05:05→21:15)
[2021-08-20] MEDS: Fenofibrate 145 MG Tablet PO (05:05)
[2021-08-20 05:07] VITALS: BP 105/73; PULSE 68
[2021-08-20] MEDS: Modafinil 200 MG Tablet 100 MG PO (05:11)
[2021-08-20 05:37] LABS: Anion Gap 6 (5-15); BUN 26 mg/dL (7-18); Calcium,Total 8.6 mg/dL (8.5-10.1); Chloride 106 mmol/L (98-107); Creatinine, Serum 1.18 mg/dL (0.70-1.30); EST Glomerular Filtration Rate 66 mL/min (>60); Est Glom Filt Rate - Afr Amer 79 mL/min (>60); Estimated Creatinine Clearance 63.58 ml/min; Glucose 98 mg/dL (74-106); Potassium 4.1 mmol/L (3.5-5.1); Sodium Level 140 mmol/L (136-145)
[2021-08-20 05:39] LABS: Absolute Lymphocyte Count 1.99 X10^3/uL (0.83-4.51); Absolute Neutrophil Count 3.7 X10^3/uL (2.0-7.7); Basophil# 0.06 X10^3/uL; Basophil% 0.9 % (0-1); Eosinophil# 0.34 X10^3/uL; Eosinophils% 4.8 % (0-5); Hematocrit 40.7 % (40-54); Hemoglobin 13.6 g/dL (13.0-16.5); Lymphocyte # 1.99 X10^3/ul (0.83-4.51); Lymphocyte % 28.3 % (19-41); Mean Corp Hgb Conc 33.4 g/dL (32-36); Mean Corpuscular Hgb 31.3 pg (27.0-32.0); Mean Corpuscular Volume 93.8 fL (80-94); Mean Platelet Vol. 10.3 fl (6.2-12.0); Monocyte# 0.93 X10^3/uL; Monocyte% 13.2 % (0-10); NRBC Flagged by Analyzer 0 % (0-5); Neutrophil # 3.66 X10^3/uL (2.7-7.7); Neutrophil % 52.1 % (47-70); Platelet Count 260 K/mm3 (150-450); RBC Distribution Width SD 48.3 fl (35.1-43.9); Red Blood Count 4.34 M/mm3 (4.6-6.2)
[2021-08-20] MEDS: Gabapentin 600 MG Tablet PO ×3 (08:29→17:05)
[2021-08-20] MEDS: Aspirin 81 MG TAB.CHEW PO (08:30)
[2021-08-20] MEDS: Tuberculin,Purif.prot.deriv. 50 TU/ML Vial 0.1 ML ID (11:53)
[2021-08-20 14:10] VITALS: BP 117/77; PULSE 84; RESP 16; TEMP 36.2; O2SAT 93
[2021-08-20] MEDS: Juven (unflavored) Packet 1 PACKET PO (14:52)
--- NOTE | 2021-08-20 15:03 | NURSING ---
Spoke w/ Jessica in therapy pt continues to make unassisted transfers, including an attempt earlier today prior to this nurse walking in to room. She will update CHILD DAY CARE TEACHER that has been working w/ pt.
[2021-08-20 21:15] VITALS: O2SAT 96
[2021-08-20] MEDS: Tamsulosin HCl 0.4 MG Capsule PO (21:16)
[2021-08-21] MEDS: Modafinil 200 MG Tablet 100 MG PO (04:47)
[2021-08-21] MEDS: Citalopram 40 MG TABLET PO (04:48)
[2021-08-21] MEDS: Meloxicam 15 MG Tablet PO (04:48)
[2021-08-21] MEDS: Docusate Sodium 100 MG Capsule PO ×3 (04:48→21:04)
[2021-08-21] MEDS: Paroxetine 20 MG Tablet PO (04:48)
[2021-08-21] MEDS: Fenofibrate 145 MG Tablet PO (04:49)
[2021-08-21] MEDS: Juven (unflavored) Packet 1 PACKET PO ×2 (08:26→17:38)
[2021-08-21] MEDS: Aspirin 81 MG TAB.CHEW PO (08:26)
[2021-08-21] MEDS: Gabapentin 600 MG Tablet PO ×3 (08:26→17:39)
--- NOTE | 2021-08-21 11:02 | CASEMGMT ---
Social Work IDT met with patient and sister for care plan meeting. Discussed patient's progress in PT/OT and nursing. Pt progressing well. Explained [facility] insurance with [employer] 08/23 and continued stay is not guaranteed. Explained and provided insurance care plan with [facility] 08/27. The goal is for pt to return home alone. SW to order HHC and needed DME. Already provided ramp and handrail resources for pt. Sister expressed concern with pt returning home - preferring pt is more mobile and independent. Therapy to continuing to work with pt. Pt is NWBS on LLE and wearing surgical shoe. SW to continue to follow. Mona Malone, MINOO SSRS DEVELOPER
[2021-08-21] MEDS: Calcium Carbonate 500 MG Tablet PO (12:29)
[2021-08-21 14:17] VITALS: BP 117/76; PULSE 92; RESP 16; TEMP 36.4; O2SAT 93
--- NOTE | 2021-08-21 14:55 | NURSING ---
Patient states he has sour stomach/indigestion at hour of sleep. Wanted to know if he could have TUMS scheduled in the evenings. Left note for Dr. Hays. No other complaints voiced.
[2021-08-21 14:57] VITALS: PULSE 92; RESP 16; O2SAT 93
--- NOTE | 2021-08-21 16:01 | CHAPLAIN ---
Type of Pastoral Visit _x__ Initial Visit ___ Follow-up Visit ___ On-call Visit ___ General Patient Visit ___ Spiritual Assessment ___ Family Conference ___ Bereavement ___ Rapid Response ___ Code Blue ___ Other (describe below) Pastoral Care Referral From _x__ Patient ___ Family ___ Nurse ___ Physician ___ Biology Intern ___ Civil Engineering Professional ___ Other (describe below) Sacrament/Intervention _x__ Active listening ___ Anointing ___ Latter Day ___ Bereavement ___ Communion _x__ Iman exploration ___ _x__ Life review _x__ Prayer ___ Reconciliation ___ Sacrament of Sick ___ Supportive presence ___ Wedding ___ Other (describe below) Pastoral Comments patient is welcoming to visit of this income tax adjuster; pt explains his home situation and the need for a ramp to get into home; pt was making some phone calls to inquire about getting ramp built; pt has some options; discussion about other options given; prayer and presence; pleasant conversation; pt went to activities area at this time;
[2021-08-21] MEDS: Calcium Carbonate 500 MG Tablet 1000 MG PO (21:03)
[2021-08-21] MEDS: Tamsulosin HCl 0.4 MG Capsule PO (21:04)
[2021-08-22] MEDS: Modafinil 200 MG Tablet 100 MG PO (06:27)
[2021-08-22] MEDS: Paroxetine 20 MG Tablet PO (06:28)
[2021-08-22] MEDS: Fenofibrate 145 MG Tablet PO (06:28)
[2021-08-22] MEDS: Citalopram 40 MG TABLET PO (06:28)
[2021-08-22] MEDS: Meloxicam 15 MG Tablet PO (06:28)
[2021-08-22] MEDS: Docusate Sodium 100 MG Capsule PO ×3 (06:28→21:48)
[2021-08-22] MEDS: Gabapentin 600 MG Tablet PO ×3 (08:37→16:02)
[2021-08-22] MEDS: Aspirin 81 MG TAB.CHEW PO (08:37)
[2021-08-22 13:26] VITALS: BP 105/66; PULSE 84; RESP 17; TEMP 36.4; O2SAT 94
--- NOTE | 2021-08-22 13:57 | MDS.RN ---
Information for the mds was obtained from review of the clinical record, interview of resident, staff, and direct observation of resident's care.
[2021-08-22] MEDS: Juven (unflavored) Packet 1 PACKET PO (16:02)
--- NOTE | 2021-08-22 16:58 | CHAPLAIN ---
Type of Pastoral Visit ___ Initial Visit _x__ Follow-up Visit ___ On-call Visit ___ General Patient Visit ___ Spiritual Assessment ___ Family Conference ___ Bereavement ___ Rapid Response ___ Code Blue ___ Other (describe below) Pastoral Care Referral From _x__ Patient ___ Family ___ Nurse ___ Physician ___ Laboratory Technologist ___ Rebar Worker ___ Other (describe below) Sacrament/Intervention _x__ Active listening ___ Anointing ___ Hindu ___ Bereavement ___ Communion ___ Iman exploration ___ ___ Life review ___ Prayer ___ Reconciliation ___ Sacrament of Sick ___ Supportive presence ___ Wedding ___ Other (describe below) Pastoral Comments casual interaction with patient in the activity area and then follow up in his room as he shows his art work
[2021-08-22 21:00] VITALS: PULSE 77; RESP 14; O2SAT 99
[2021-08-22] MEDS: Tamsulosin HCl 0.4 MG Capsule PO (21:48)
[2021-08-23] MEDS: Docusate Sodium 100 MG Capsule PO ×3 (06:42→21:07)
[2021-08-23] MEDS: Citalopram 40 MG TABLET PO (06:42)
[2021-08-23] MEDS: Paroxetine 20 MG Tablet PO (06:42)
[2021-08-23] MEDS: Meloxicam 15 MG Tablet PO (06:42)
[2021-08-23] MEDS: Fenofibrate 145 MG Tablet PO (06:42)
[2021-08-23] MEDS: Modafinil 200 MG Tablet 100 MG PO (06:49)
[2021-08-23] MEDS: Juven (unflavored) Packet 1 PACKET PO ×2 (08:22→16:59)
[2021-08-23] MEDS: Gabapentin 600 MG Tablet PO ×3 (08:22→16:58)
[2021-08-23] MEDS: Aspirin 81 MG TAB.CHEW PO (08:22)
[2021-08-23] MEDS: Calcium Carbonate 500 MG Tablet 1000 MG PO (12:01)
--- NOTE | 2021-08-23 12:24 | CASEMGMT ---
Addendum entered by Mona Malone 08/23/21 16:47: [facility] unable to staff pt. [facility] unable to staff pt. Contacted about 30 [facility] agencies. Awaiting outcomes from [facility], [facility], [facility], and [facility]. Will continue to follow. Original Note: Social Work Insurance issued LCD 08/26, 08/27. Spoke with pt and sister about DC to confirm location of DC and plan. Provided option of transferring to SNF under [facility] until ramp is built. After discussion, pt and sister agreed pt will DC home alone, sister to transport - she denied scheduling transport to get pt into house - and SW to order [facility] PT/OT/SN/BROOKS. Sister to contact nonskilled [facility] agencies to hire for additional assistance at the home. Provided list of [facility] agencies to pt with quality and resource data. Pt does not have a preference. SW contacting several [facility] agencies whom accept pt's insurance and in area. Referral faxed to [facility]. Referral made to [facility] for w/c w/elevating leg rests. [facility] to provide pricing for FWW and knee sling for pt to purchase. Will await return phone call with pricing. SW to continue to follow. Plan: DC home alone 08/27, [facility] PT/OT/SN/BROOKS, w/c, FWW w/knee sling Mona Malone, MINOO STAUFFERW
[2021-08-23 13:28] VITALS: BP 105/69; PULSE 84; RESP 16; TEMP 36.1; O2SAT 97
--- NOTE | 2021-08-23 15:25 | PCM.PROGNOTE ---
Subjective Subjective Patient was seen this afternoon for follow up on left 2nd toe. He relates he is doing well, no pain. He is resting in chair with foot elevated. No complaints of fevr, chills, nausea, vomiting or calf pain. Objective Data Objective Data Vital Signs: Vital Signs Temp Pulse Resp BP Pulse Ox 96.9 F L 84 16 105/69 97 08/23/21 13:28 08/23/21 13:28 08/23/21 13:28 08/23/21 13:28 08/23/21 13:28 Oxygen Delivery Method Room Air Weight: 124.829 kg Body Mass Index (BMI) 38.8 Intake & Output: Intake and Output for Last 24 Hours 08/21/21 08/22/21 08/23/21 23:59 23:59 23:59 Intake Total 960 / 960 1200 / 1200 720 / 720 Balance 960 / 960 1200 / 1200 720 / 720 Lab / Micro Data Result Diagrams: 08/20/21 05:03 08/20/21 05:03 Physical Exam Extremity Extremity Narrative: No calf tenderness Rectus right second toe in loaded position now status post surgery Dorsal contraction of other lesser toes three, four, five on right foot. Skin Skin Narrative: no purulence, no streaking, no odor, no infection right foot. right 2nd toe incision intact without gapping, necrosis or infection or erythema. No evidence of infection right foot. Calf is soft and supple bilateral. Neuro Neuro Narrative: lack of normal epicritic sensation via light touch is consistent with neuropathy status Assessment & Plan Assessment/Plan (1) Chronic ulcer of right foot with fat layer exposed: (2) Hammertoe of right foot: PLAN: He was admitted for postoperative recovery retirement facility placement due to difficulty to maintain nonweightbearing status and remember instructions. He had a curative surgery to prevent additional recurrent ulcer formation which included hammertoe correction with arthrodesis of the right second toe. He is overall stable without any local evidence of infection. The surgical site is doing well and healing well. To heel weightbearing to touch with surgical shoe for transfers otherwise non weightbearing. Use assistive device such as a walker. PT / OT continued in transitional care unit. Changed dressing today - dry gauze, kerlix and [place] bandage. To keep dressing clean, dry, and intact. Pain medication ordered as needed. To ice and elevate for pain and inflammation management also. Medical comorbidities are noted and he is overall stable. Please do not hesitate to call if you have any questions. Podiatry team will see weekly and suture removal will be considered next week.
--- NOTE | 2021-08-23 18:42 | PCM.DC.SUM ---
Providers Date of Admission: 08/12/21 Primary Care Physician: Dr. Mia Pop MD Consultations 08/12/21 20:42 Consult: Podiatry Routine Consulting Provider: Rosalina Lozada Reason for Consult: status post right foot surgery. EMERGENT Consult: No MD Notified: Yes Date Notified: 08/12/21 Time Notified: 20:42 Method of Notification: Provider Initiated Reason For Visit: RIGHT SECOND TOE REPAIR Diagnosis Discharge Diagnosis (1) Chronic ulcer of right foot with fat layer exposed: Code(s): L97.512 - Non-pressure chronic ulcer of other part of right foot with fat layer exposed (2) Hammertoe of right foot: Code(s): M20.41 - Other hammer toe(s) (acquired), right foot Medications at Discharge Home Medications aspirin 81 mg PO DAILY@0800 08/11/17 budesonide-formoterol [Symbicort] 2 puff INHALATION DAILY PRN 08/11/17 citalopram 40 mg PO DAILY 08/11/17 gabapentin 600 mg PO TID 08/11/17 modafinil 100 mg PO DAILY 08/11/17 tamsulosin [Flomax] 0.4 mg PO QHS 08/11/17 tizanidine 4 mg PO PRN PRN 08/11/17 fluticasone propion-salmeterol [Advair Diskus] 1 ea IH DAILY PRN PRN 04/30/18 fenofibrate 160 mg PO DAILY 06/26/21 meloxicam [Mobic] 15 mg PO DAILY 06/26/21 paroxetine HCl [Paxil] 20 mg PO DAILY 06/26/21 [id number] [Vargas (with collagen)] 1 ea PO BIDCM 30 Days #60 ea 08/23/21 Hospital Course Operations - (Right foot surgery.) Procedures None Summary of Care Provided Minutes Spent on Discharge: 35 Hospital Course: 66 YEAR OLD MALE WITH BELOW PAST MEDICAL HISTORY HOSPITALIZED FOR RIGHT FOOT SURGERY 08/09/[address] LOZADA, UNABLE TO MAINTAIN NWB STATUS RIGHT LOWER EXTREMITY HOME ALONE, ADMITTED TO TCU WITH DEBILITY, HERE FOR REHABILITATION, STRENGTHENING, PRIOR TO DISCHARGE HOME ALONE. Discharge home alone 08/17/2021, Home Health Care PT/OT/SN/BROOKS, Wheelchair, Front wheeled walker with knee sling. Physical Exam Const alert and oriented x3 General Appearance: cooperative HEENT normocephalic Eyes PERRL and EOMs intact bilaterally Neck supple, no JVD and no carotid bruits Resp normal respiratory effort, normal air movement and clear to auscultation bilaterally Cardio regular rate and regular rhythm GI normal to inspection, nondistended, normoactive bowel sounds, non-tender and non-distended Extremity normal capillary refill General Extremity: Negative for edema Skin no rashes or lesions noted General Skin Exam: no breakdown Psych affect normal Appearance: appropriate Weight / BMI Weight Weight: 124.829 kg Body Mass Index (BMI) 38.8 ABG / Lab / Microbiology Data Result Diagrams: 08/20/21 05:03 08/20/21 05:03 D/C Instructions Discharge Diet: No restrictions Discharge Activity: Return to Normal Activity and May Shower Weight Bearing Status: No weight bearing (Right lower extremity.) Call your doctor if you observe: Fever of 101 or Higher, Inability to urinate, Inability to have a bowel movement, Shortness of breath, Dizziness, Fainting spells, Swelling in the ankles, Chest pain and Uncontrolled pain Additional Instructions: Discharge home alone 08/17/2021, Home Health Care PT/OT/SN/BROOKS, Wheelchair, Front wheeled walker with knee sling. Meaningful Use Info Meaningful Use Diagnoses (Choose all that apply): None applicable Discharge Plan Admission Admit Date/Time: 08/12/21 18:40 Primary Reason for Your Visit: Debility. Attending Provider: Carson Hays Chi Primary Care Provider: Mia Pop Consulting Providers: Rosalina Lozada Instructions Additional Instructions / Restrictions: Keep dressing clean, dry, intact untill follow up. maintain non weightbearing status right foot with surgical shoe and walker. Ok to touch heel down if needed for occasional transfer. elevate right lower extremity Discharge home alone 08/17/2021, Home Health Care PT/OT/SN/BROOKS, Wheelchair, Front wheeled walker with knee sling. Discharge Orders/Prescriptions Prescriptions: New Vargas (with collagen) 7-7-1.5 gram Powder In Packet 1 ea PO BIDCM 30 Days Qty: 60 RF: 0 Continued gabapentin 600 MG tablet 600 mg PO TID RF: 0 citalopram 40 MG tablet 40 mg PO DAILY RF: 0 tizanidine 4 MG tablet 4 mg PO PRN PRN (Reason: Spasms) RF: 0 tamsulosin [Flomax] 0.4 MG capsule 0.4 mg PO QHS RF: 0 aspirin 81 MG tablet,chewable 81 mg PO DAILY@0800 RF: 0 modafinil 100 MG tablet 100 mg PO DAILY RF: 0 budesonide-formoterol [Symbicort] 1 INHALER inhaler 2 puff inhalation DAILY PRN (Reason: Wheezing) RF: 0 fluticasone propion-salmeterol [Advair Diskus] 1 EACH blister with device 1 ea IH DAILY PRN PRN (Reason: Dyspnea) RF: 0 meloxicam [Mobic] 15 mg Tablet 15 mg PO DAILY RF: 0 paroxetine HCl [Paxil] 20 mg Tablet 20 mg PO DAILY RF: 0 fenofibrate 160 mg Tablet 160 mg PO DAILY RF: 0 Discontinued enoxaparin 40 mg/0.4 mL syringe 40 mg subcut DAILY RF: 0 Referrals / Follow Up: Mia Pop MD [Primary Care Provider] - Rosalina Lozada DPM [STAFF PHYSICIAN] - Within 1 Week (Call to schedule; [phone]. within one week after discharge ) Disposition Disposition (needs filled in before D/C Order can be placed): Home Health Service
[2021-08-23] MEDS: Tamsulosin HCl 0.4 MG Capsule PO (21:07)
[2021-08-24] MEDS: Modafinil 200 MG Tablet 100 MG PO (06:49)
[2021-08-24] MEDS: Meloxicam 15 MG Tablet PO (06:50)
[2021-08-24] MEDS: Fenofibrate 145 MG Tablet PO (06:50)
[2021-08-24] MEDS: Citalopram 40 MG TABLET PO (06:50)
[2021-08-24] MEDS: Paroxetine 20 MG Tablet PO (06:50)
[2021-08-24] MEDS: Docusate Sodium 100 MG Capsule PO ×3 (06:51→21:40)
[2021-08-24] MEDS: Aspirin 81 MG TAB.CHEW PO (08:19)
[2021-08-24] MEDS: Juven (unflavored) Packet 1 PACKET PO ×2 (08:19→16:33)
[2021-08-24] MEDS: Gabapentin 600 MG Tablet PO ×3 (08:19→16:33)
[2021-08-24 13:06] VITALS: BP 122/80; PULSE 84; RESP 16; TEMP 36.9; O2SAT 97
[2021-08-24] MEDS: Tamsulosin HCl 0.4 MG Capsule PO (21:40)
[2021-08-24] MEDS: Calcium Carbonate 500 MG Tablet 1000 MG PO (21:40)
[2021-08-24 23:20] VITALS: PULSE 70; RESP 16; O2SAT 98
[2021-08-25] MEDS: Paroxetine 20 MG Tablet PO (05:32)
[2021-08-25] MEDS: Fenofibrate 145 MG Tablet PO (05:32)
[2021-08-25] MEDS: Docusate Sodium 100 MG Capsule PO ×3 (05:32→22:44)
[2021-08-25] MEDS: Citalopram 40 MG TABLET PO (05:32)
[2021-08-25] MEDS: Meloxicam 15 MG Tablet PO (05:32)
[2021-08-25] MEDS: Modafinil 200 MG Tablet 100 MG PO (05:32)
[2021-08-25] MEDS: Aspirin 81 MG TAB.CHEW PO (09:06)
[2021-08-25] MEDS: Gabapentin 600 MG Tablet PO ×3 (09:07→16:57)
[2021-08-25] MEDS: Juven (unflavored) Packet 1 PACKET PO ×2 (09:07→16:57)
[2021-08-25 11:17] VITALS: PULSE 86; RESP 16; O2SAT 96
[2021-08-25 14:55] VITALS: BP 143/78; PULSE 86; RESP 16; TEMP 36.9; O2SAT 95
--- NOTE | 2021-08-25 22:28 | NURSING ---
Updated per ENGINEER PROCESS that pt received a call this pm that his best friend passed. Staff offered emotional support via social work if available at this time or per sourcing assistant tomorrow. Pt requests sourcing assistant visit tomorrow.
[2021-08-25] MEDS: Calcium Carbonate 500 MG Tablet 1000 MG PO (22:44)
[2021-08-25] MEDS: Tamsulosin HCl 0.4 MG Capsule PO (22:44)
[2021-08-26] MEDS: Docusate Sodium 100 MG Capsule PO ×3 (06:33→21:17)
[2021-08-26] MEDS: Fenofibrate 145 MG Tablet PO (06:33)
[2021-08-26] MEDS: Meloxicam 15 MG Tablet PO (06:33)
[2021-08-26] MEDS: Paroxetine 20 MG Tablet PO (06:34)
[2021-08-26] MEDS: Citalopram 40 MG TABLET PO (06:34)
[2021-08-26] MEDS: Modafinil 200 MG Tablet 100 MG PO (06:34)
[2021-08-26] MEDS: Gabapentin 600 MG Tablet PO ×3 (08:43→16:39)
[2021-08-26] MEDS: Aspirin 81 MG TAB.CHEW PO (08:43)
[2021-08-26] MEDS: Juven (unflavored) Packet 1 PACKET PO ×2 (08:44→16:39)
--- NOTE | 2021-08-26 10:09 | CASEMGMT ---
Addendum entered by Mona Malone 08/26/21 15:49: Leticia Ochoa called back after verifying insurance and can review referral. Pending outcome. Updated pt. Addendum entered by Mona Malone 08/26/21 14:52: Spoke with all 3 facilities and all are unable to accept pt. Spoke with pt to get other facility choices. Prefers: [facility], [facility], [facility] and [facility]. Calls made. [facility] is the only that can accept insurance. Referral made and they are reviewing. Original Note: Social Work Received return calls from all 4 agencies and they cannot pt due to staffing or being out of service area. Spoke with pt about not being able to find C agency, ramp is not built yet, and concerned about safety at home. Suggested pt use [facility] benefit to transfer to SNF until able to return home. Pt agreeable. Provided [facility] and [facility] with Medicare star ratings. Pt agreeable to any [place] SNF. Calling facilities to inquire about bed availability and insurance. Referral sent to Misty Masterson. Left messages with Marlyn Masterson and MINOO Crane AIR CONTR[employer]I [employer] WARFARE OFFICER
--- NOTE | 2021-08-26 15:53 | CHAPLAIN ---
Type of Pastoral Visit ___ Initial Visit ___ Follow-up Visit ___ On-call Visit ___ General Patient Visit ___ Spiritual Assessment ___ Family Conference _x__ Bereavement ___ Rapid Response ___ Code Blue ___ Other (describe below) Pastoral Care Referral From _x__ Patient ___ Family ___ Nurse ___ Physician ___ Financial Processing Clerk ___ Care Aid ___ Other (describe below) Sacrament/Intervention _x__ Active listening ___ Anointing ___ Zoroastrianism _x__ Bereavement ___ Communion _x__ Iman exploration ___ _x__ Life review _x__ Prayer ___ Reconciliation ___ Sacrament of Sick _x__ Supportive presence ___ Wedding ___ Other (describe below) Pastoral Comments patient asked for visit from waiter/waitress for spiritual care support due to good friend who in last 48 hours due to COVID; pt is concerned about what happened, the of the , and for himself; pt able to talk about it and receive comfort and prayer support; pt also talked more about his personal life journey with its challenges and disappointments; pt is a person of strong iman and relies on God for his help
[2021-08-26 15:58] VITALS: BP 134/57; PULSE 88; RESP 18; TEMP 36.7; O2SAT 95
--- NOTE | 2021-08-26 17:14 | NURSING ---
Sisters, Sherry calls. States she will try and get here by noon tomorrow to fiber picker resident and transport to home.
[2021-08-26] MEDS: Tamsulosin HCl 0.4 MG Capsule PO (21:17)
[2021-08-26] MEDS: Calcium Carbonate 500 MG Tablet 1000 MG PO (21:18)
[2021-08-27] MEDS: Docusate Sodium 100 MG Capsule PO ×2 (05:00→13:19)
[2021-08-27] MEDS: Citalopram 40 MG TABLET PO (05:00)
[2021-08-27] MEDS: Paroxetine 20 MG Tablet PO (05:01)
[2021-08-27] MEDS: Fenofibrate 145 MG Tablet PO (05:01)
[2021-08-27] MEDS: Meloxicam 15 MG Tablet PO (05:01)
[2021-08-27] MEDS: Modafinil 200 MG Tablet 100 MG PO (05:06)
[2021-08-27 06:09] LABS: Absolute Lymphocyte Count 1.88 X10^3/uL (0.83-4.51); Absolute Neutrophil Count 3.6 X10^3/uL (2.0-7.7); Basophil# 0.07 X10^3/uL; Eosinophil# 0.29 X10^3/uL; Eosinophils% 4.3 % (0-5); Hematocrit 42.1 % (40-54); Hemoglobin 13.6 g/dL (13.0-16.5); Lymphocyte # 1.88 X10^3/ul (0.83-4.51); Lymphocyte % 27.6 % (19-41); Mean Corp Hgb Conc 32.3 g/dL (32-36); Mean Corpuscular Hgb 31.3 pg (27.0-32.0); Mean Corpuscular Volume 96.8 fL (80-94); Mean Platelet Vol. 10.5 fl (6.2-12.0); Monocyte# 0.97 X10^3/uL; Monocyte% 14.2 % (0-10); NRBC Flagged by Analyzer 0 % (0-5); Neutrophil # 3.58 X10^3/uL (2.7-7.7); Neutrophil % 52.5 % (47-70); Platelet Count 295 K/mm3 (150-450); RBC Distribution Width CV 13.9 % (11.6-14.6); RBC Distribution Width SD 49.9 fl (35.1-43.9); Red Blood Count 4.35 M/mm3 (4.6-6.2); White Blood Count 6.8 K/mm3 (4.4-11.0)
[2021-08-27 06:33] LABS: Anion Gap 4 (5-15); BUN 35 mg/dL (7-18); Calcium,Total 8.7 mg/dL (8.5-10.1); Chloride 106 mmol/L (98-107); Creatinine, Serum 1.25 mg/dL (0.70-1.30); EST Glomerular Filtration Rate 61 mL/min (>60); Est Glom Filt Rate - Afr Amer 74 mL/min (>60); Estimated Creatinine Clearance 60.02 ml/min; Glucose 90 mg/dL (74-106); Potassium 3.9 mmol/L (3.5-5.1); Sodium Level 140 mmol/L (136-145)
[2021-08-27] MEDS: Aspirin 81 MG TAB.CHEW PO (08:00)
[2021-08-27] MEDS: Juven (unflavored) Packet 1 PACKET PO (08:00)
[2021-08-27] MEDS: Gabapentin 600 MG Tablet PO ×2 (08:00→11:56)
--- NOTE | 2021-08-27 08:21 | PCM.TXEXTCAR ---
Diet 08/12/21 19:36 Diet: Regular - General Food consistency:: Regular Liquid Consistency:: Regular/Thin Routine Orders/Code Status Suppository Type: Dulcolax 10mg Suppository Frequency: Daily PRN Code Status: Full Code Wound(s) left reyes: Wound Type: Abrasion left 2nd toe: Wound Type: Redness/scab right 2nd toe: Wound Type: Surgical Incision Dressing Change: Dry Sterile Dressing Therapies Weight Bearing: Non weight bearing Extremity Affected:: Bilateral Lower Physical Therapy: Eval and Treat Occupational Therapy: Eval and Treat Problem/Diagnosis (1) Chronic ulcer of right foot with fat layer exposed: (2) Hammertoe of right foot: Allergies/Procedures Done in Hospital Allergies No Known Allergies Allergy (Verified 08/09/21 06:55) Procedures: None Type of Care/Length of Stay Estimated LOS: Convalescent Care Less Than 30 days Type of Care Needed: Intermediate Rehab Potential: Fair Prognosis: Fair Additional Orders/Day of Discharge Day of Discharge: 08/27/21 Dietary and Speech Recommendations Dietitian Recommendations/Changes: continue regular diet continue vargas bid to help w/ wound healing Discharge Plan Admission Admit Date/Time: 08/12/21 18:40 Primary Reason for Your Visit: Debility. Attending Provider: Carson Hays Chi Primary Care Provider: Mia Pop Consulting Providers: Rosalina Ruelas Instructions Additional Instructions / Restrictions: Keep dressing clean, dry, intact untill follow up. maintain non weightbearing status right foot with surgical shoe and walker. Ok to touch heel down if needed for occasional transfer. elevate right lower extremity Discharge home alone 08/17/2021, Home Health Care PT/OT/SN/BROOKS, Wheelchair, Front wheeled walker with knee sling. Discharge Orders/Prescriptions Prescriptions: New Vargas (with collagen) 7-7-1.5 gram Powder In Packet 1 ea PO BIDCM 30 Days Qty: 60 RF: 0 Continued gabapentin 600 MG tablet 600 mg PO TID RF: 0 citalopram 40 MG tablet 40 mg PO DAILY RF: 0 tizanidine 4 MG tablet 4 mg PO PRN PRN (Reason: Spasms) RF: 0 tamsulosin [Flomax] 0.4 MG capsule 0.4 mg PO QHS RF: 0 aspirin 81 MG tablet,chewable 81 mg PO DAILY@0800 RF: 0 modafinil 100 MG tablet 100 mg PO DAILY RF: 0 budesonide-formoterol [Symbicort] 1 INHALER inhaler 2 puff inhalation DAILY PRN (Reason: Wheezing) RF: 0 fluticasone propion-salmeterol [Advair Diskus] 1 EACH blister with device 1 ea IH DAILY PRN PRN (Reason: Dyspnea) RF: 0 meloxicam [Mobic] 15 mg Tablet 15 mg PO DAILY RF: 0 paroxetine HCl [Paxil] 20 mg Tablet 20 mg PO DAILY RF: 0 fenofibrate 160 mg Tablet 160 mg PO DAILY RF: 0 Discontinued enoxaparin 40 mg/0.4 mL syringe 40 mg subcut DAILY RF: 0 Referrals / Follow Up: Mia Pop MD [Primary Care Provider] - Within 1 Week Rosalina Ruelas DPM [STAFF PHYSICIAN] - Within 1 Week (Call to schedule; [phone]. within one week after discharge ) Disposition Disposition (needs filled in before D/C Order can be placed): Home Health Service
[2021-08-27] MEDS: COVID-19 VACC, MRNA(PFIZER)/PF 30 MCG/0.3 ML SYRINGE IM (14:20)
[2021-08-27 14:28] VITALS: PULSE 85; RESP 16; O2SAT 96
[2021-08-27 14:40] VITALS: BP 136/82; PULSE 85; RESP 16; TEMP 36.7; O2SAT 96
[2021-08-27 14:54] VITALS: BP 136/82; PULSE 85; RESP 16; TEMP 36.7; O2SAT 96
--- NOTE | 2021-08-27 15:10 | CASEMGMT ---
Social Work Several more referrals made to surrounding facilities. Followed up with pt's sister to ensure she is aware as pt stated he would update her yesterday. When speaking with sister, she was not aware of change in DC plans. Sister requested referrals in [facility], closer to her. She provided several. Referrals made to those in network with pt's insurance and with potential bed availability. [place] back from [facility], [facility] and [facility] they are unable to accept. [facility] has accepted pt. Three SNFs in [facility] have not replied with outcomes. Spoke with pt about [facility]. Pt agreeable. Spoke with sister about acceptance and if she still wanted to transport pt - she agreed and would arrive this afternoon. PASRR completed and faxed along with DC paperwork and COVID results to [facility]. Spoke with instructor bridgeWick And Base Assembler at [facility] to provide hand-off and DC plans for pt. Goal is for pt to DC home with [facility], once ramp is built at home. Suggested if blisters heal and pt could manage own dressing changes, pt could possibly go to outpatient therapy. Provided names of several [facility] agencies this worker previously called that staffing issues may have resolved. RN appreciative. Plan: DC to [facility] 08/27 MINOO Ritchie
== END 2021-08-27 14:45 | disposition skilled nursing facility (03) | DRG 561 ==
PROVIDERS: Admitting Provider Family Medicine Geriatric Medicine; PCP Family Medicine; Visit Provider Family Medicine Geriatric Medicine
DX: Z47.89 Encounter for other orthopedic aftercare (principal); F32.A Depression, unspecified; M19.90 Unspecified osteoarthritis, unspecified site; Z23 Encounter for immunization; L40.9 Psoriasis, unspecified; E78.5 Hyperlipidemia, unspecified; N40.0 Benign prostatic hyperplasia without lower urinary tract symptoms; M20.41 Other hammer toe(s) (acquired), right foot; L97.512 Non-pressure chronic ulcer of other part of right foot with fat layer exposed; G62.9 Polyneuropathy, unspecified; J44.9 Chronic obstructive pulmonary disease, unspecified; G47.419 Narcolepsy without cataplexy; Z79.899 Other long term (current) drug therapy; Z79.82 Long term (current) use of aspirin
CPT/HCPCS: 0004A; 36415; 80048; 85025; 87635; 91300; 97110; 97116; 97162; 97166; 97530; 97535; 97802; G0008; U0005; 90686; A4216; U0003

== ENCOUNTER → 2022-01-20 | Outpatient (CLI) | payer MEDICARE, SELFPAY ==
[2022-01-20 18:05] LABS: Absolute Lymphocyte Count 1.46 X10^3/uL (0.83-4.51); Absolute Neutrophil Count 4.9 X10^3/uL (2.0-7.7); Basophil# 0.05 X10^3/uL; Basophil% 0.7 % (0-1); Eosinophil# 0.29 X10^3/uL; Eosinophils% 3.8 % (0-5); Hematocrit 42.9 % (40-54); Hemoglobin 13.7 g/dL (13.0-16.5); Lymphocyte # 1.46 X10^3/ul (0.83-4.51); Lymphocyte % 19.3 % (19-41); Mean Corp Hgb Conc 31.9 g/dL (32-36); Mean Corpuscular Hgb 30.4 pg (27.0-32.0); Mean Corpuscular Volume 95.1 fL (80-94); Mean Platelet Vol. 10.9 fl (6.2-12.0); Monocyte% 10.6 % (0-10); NRBC Flagged by Analyzer 0.3 % (0-5); Neutrophil # 4.94 X10^3/uL (2.7-7.7); Neutrophil % 65.3 % (47-70); Platelet Count 299 K/mm3 (150-450); RBC Distribution Width SD 52.6 fl (35.1-43.9); Red Blood Count 4.51 M/mm3 (4.6-6.2); White Blood Count 7.6 K/mm3 (4.4-11.0)
[2022-01-20 18:22] LABS: ALB/GLOB Ratio 0.9 RATIO (0.9-2.4); AST(SGOT) 12 U/L (15-37); Alanine Aminotransfer ALT/SGPT 25 U/L (16-61); Albumin, Serum 3.4 g/dL (3.2-5.0); Alkaline Phosphatase 50 U/L (45-117); Anion Gap 7 (5-15); BUN 28 mg/dL (7-18); BUN/Creat Ratio 22.8 RATIO (10-20); Calcium,Total 9.2 mg/dL (8.5-10.1); Chloride 109 mmol/L (98-107); Creatinine, Serum 1.23 mg/dL (0.70-1.30); EST Glomerular Filtration Rate 62 mL/min (>60); Est Glom Filt Rate - Afr Amer 76 mL/min (>60); Globulin 3.7 g/dL (2.2-4.2); Glucose 99 mg/dL (74-106); Potassium 4.2 mmol/L (3.5-5.1); Protein, Total 7.1 g/dL (6.4-8.2); Sodium Level 142 mmol/L (136-145)
[2022-01-23 10:09] LABS: QNTFERON TB Mitogen Value > 10.00 IU/mL (.); QNTFERON TB Nil Value 0.04 IU/mL (.); QNTFERON TB1+ Ag Value 0.02 IU/mL (.); QNTFERON TB2+ Ag Value 0.03 IU/mL (.)
[2022-01-23 12:09] LABS: QNTIFERON TB Positive Criteria Negative (Negative)
== END | disposition home or self-care (01) ==
LOC: MTLAB 15:35
PROVIDERS: PCP Family Medicine; Referring Provider Dermatology Pediatric Dermatology; Visit Provider Dermatology Pediatric Dermatology
DX: L40.0 Psoriasis vulgaris (principal); L40.59 Other psoriatic arthropathy; Z79.899 Other long term (current) drug therapy
CPT/HCPCS: 36415; 80053; 80074; 85025; 86480

== ENCOUNTER → 2023-04-02 | Outpatient (CLI) | payer MEDICARE, SELFPAY ==
[2023-04-04 12:08] LABS: Hepatitis B Core Ab Total Negative (Negative); QNTFERON TB Mitogen Value > 10.00 IU/mL (.); QNTFERON TB Nil Value 0.01 IU/mL (.); QNTFERON TB1+ Ag Value 0.01 IU/mL (.); QNTFERON TB2+ Ag Value 0 IU/mL (.); QNTIFERON TB Positive Criteria Negative (Negative)
== END | disposition home or self-care (01) ==
LOC: MTLAB 15:54
PROVIDERS: PCP Family Medicine; Visit Provider Physician Assistant
DX: L40.0 Psoriasis vulgaris (principal); L40.59 Other psoriatic arthropathy; M06.9 Rheumatoid arthritis, unspecified; Z79.899 Other long term (current) drug therapy
CPT/HCPCS: 36415; 86480; 86704

== ENCOUNTER → 2024-07-22 | Outpatient (CLI) | payer MEDICARE, SELFPAY ==
[2024-07-26 08:13] LABS: QNTFERON TB Mitogen Value > 10.00 IU/mL (.); QNTFERON TB Nil Value 0.05 IU/mL (.); QNTFERON TB1+ Ag Value 0.06 IU/mL (.); QNTFERON TB2+ Ag Value 0.06 IU/mL (.); QNTIFERON TB Positive Criteria Negative (Negative)
== END | disposition home or self-care (01) ==
PROVIDERS: PCP Family Medicine; Referring Provider Dermatology Pediatric Dermatology; Visit Provider Dermatology Pediatric Dermatology
DX: L40.0 Psoriasis vulgaris (principal); Z79.899 Other long term (current) drug therapy
CPT/HCPCS: 36415; 86480